=== PATIENT | female | born 1960 | race Caucasian/White ===

== ENCOUNTER 2018-09-17 00:53 | Outpatient (CLI) | payer BC, SELFPAY ==
--- NOTE | 2018-09-17 14:30 | DI.RAD_ITS ---
SYMPTOMS/DIAGNOSIS: OSTEOPENIA, SEIZURES ON ANTIEPILEPTIC THERAPY, R56.9, M85.80, Z79.899 DEXA SCAN: Routine examination. The lateral view of the spine shows no compression deformities. Evaluation of the left hip shows a total T score of -1.8 and a Z score of -0.9. Evaluation of the lumbar spine shows a total T score of -3.3 and a Z score of -1.9. The findings are consistent with osteoporosis in the lumbar spine, which imparts a high fracture risk. There is osteopenia in the left hip.
== END 2018-09-17 01:13 ==
PROVIDERS: PCP Family Medicine; Visit Provider Psychiatry & Neurology Neurology
DX: M85.88 Other specified disorders of bone density and structure, other site (principal); R56.9 Unspecified convulsions; Z79.899 Other long term (current) drug therapy
CPT/HCPCS: 77080

== ENCOUNTER 2019-02-28 10:12 | Emergency (ER) | payer BC, SELFPAY ==
[2019-02-28 10:16] VITALS: BP 140/87; PULSE 67; RESP 16; TEMP 36.5; O2SAT 97
--- NOTE | 2019-02-28 10:41 | ED.GENADUL_ITS ---
Discharge Plan Disposition Patient Disposition: HOME Condition: Good Discharge Details Chief Complaint: Orthopedic Clinical Impression: Plantar fasciitis Primary Care Provider: Aria Thompson ED Provider: Mandi Maria Home Meds and New Rx's Prescriptions: Continued oxcarbazepine [Trileptal] 150 MG tablet 900 mg PO HS RF: 0 Discharge Instructions Instructions: Plantar Fasciitis Exercises (GEN), Plantar Fasciitis (ED) Additional Instructions: Encourage hydration. Tylenol and/or Aleve for discomfort. Begin taking the Aleve once in the morning, once at night as discussed for the next 1 to 2 weeks. Please follow-up with primary care within the next 2 weeks for reevaluation. Please begin the exercises discussed, attached is information on these exercises. If you develop fever/chills, no skin changes, warmth or the new/worsening symptoms please seek care urgently once again. You need to wear more supportive shoe with arch support as discussed. Do not wear high heels. Referrals: Aria Thompson [Primary Care Provider] - Discharge Data Discharge Date/Time-TO BE ENTERED AT DEPARTURE: 02/28/19 11:42 Medical Decision Making Patient is a 4-year-old female presenting today with chief complaint of right foot pain. She reports this began approximately 3 to 4 weeks ago after walking for extended period of time a new [place] while in [place]. She denies any trauma. Indicates that the heel and into the arch is area of discomfort. Her exam is most consistent with plantar fasciitis. Do not see any evidence of infection. She does report feeling swelling along with the medial aspect of the heel, I am unable to appreciate this on exam. Patient has been elevating. Has taken 1 Aleve. She feels that her pain greatly increased today making it difficult for her to ambulate. Will obtain x-rays to evaluate for any possible bony abnormality including possible spur. Discussed this plan with the patient is in agreement X-rays obtained and reviewed by myself. You need a spur but no other acute bony abnormality. At this time, patient is requesting discharge. Patient I discussed that time of diagnosis of plantar fasciitis. She was wearing a unsupportive high heel shoe. I encouraged she needs to wear something with more arch support and without the elevation. We discussed exercises at home techniques to help with this diagnosis. Advise follow-up with her primary care next week for reevaluation. We discussed new/worsening symptoms that should prompt urgent evaluation once again. All the questions and concerns were addressed and she is in agreement Call patient back once the report was in from the radiologist and let her know that the read verified my initial interpretation of fracture dislocation but a small plantar calcaneal spur noted. HPI General Mode of arrival: ambulatory . Date/Time Provider Initiated Documentation: 02/28/19 10:22 . Limitations to Documentation: no limitations . Information obtained by: patient, family () and RN notes reviewed . History of Present Illness 58 year old F presents to the emergency department with the chief complaint of right foot pain, described as moderate, with intensity rated at 5. Quality is described as aching, and is localized to the right and lower extremity. Patient reports no radiation. Patient started experiencing this week(s) and it has been constant. Immobilization improves symptom(s), Movement worsens symptoms . Patient notes no other symptoms.. Patient did receive the following treatments prior to arrival, NSAID Related Data Home Medications Medication Instructions Recorded Confirmed oxcarbazepine [Trileptal] 900 mg PO HS 06/16/13 02/28/19 Allergies Allergy/AdvReac Type Severity Reaction Status Date / Time Sulfa (Sulfonamide AdvReac Intermediate Nausea Unverified 02/28/19 10:23 Antibiotics) General Stated Complaint: Orthopedic KRIS: 4 Review of Systems Constitutional Reports as per HPI, Denies chills, Denies fever(s), Denies headache(s) and Denies weakness ENT Denies headache(s) Cardiovascular Reports as per HPI Respiratory Reports as per HPI and Denies cough Musculoskeletal Reports as per HPI and Denies tingling Integumentary/Breasts Reports as per HPI, Denies rash and Denies wounds Neurologic Reports as per HPI, Denies headache(s), Denies tingling, Denies paresthesias and Denies weakness [facility] Social History Smoking/Tobacco Use Status: Former Tobacco Use Drug use: Never Do you feel safe in your relationship?: Yes Exam Const General: cooperative, healthy appearing, comfortable, no acute distress, well developed and well groomed Nutritional Appearance: average body habitus and well nourished Orientation: alert and awake Resp Effort & Inspection: normal respiratory effort, able to speak in complete sentences and no respiratory distress Cardio Rate: regular rate Rhythm: regular rhythm Skin General skin exam: no rashes or lesions noted Lesions: no lesions Rashes: no rashes Trauma: no lacerations or abrasions Neuro General: alert and awake Cognition: normal cognition Speech: speech normal Gait: normal gait Motor: muscle tone normal throughout Sensory Exam: no sensory deficits noted Extrem Left lower extremity: normal to inspection, full ROM, normal capillary refill, no joint enlargement, ankle Details: normal to inspection, no edema and normal ROM; no tenderness, no swelling, no warmth, no ecchymosis and achilles tendon exam normal and foot Details: normal capillary refill, normal to inspection, tenderness Location: of the plantar foot Location: proximally, of the calcaneus Details: point tenderness; none with a squeeze and of the medial foot Location: proximally; not of the dorsal foot, not of the great toe, not of any other digit, not of the lateral foot and not of the base of the 5th metatarsal, vascular exam Details: dorsalis pedis pulse present and posterior tibial pulse present, tendon exam Details: active flexion normal and active extension normal and motor-sensory exam Details: light-touch normal; no edema, no lacerations, no ecchymosis and no crepitus Psych Appearance: grossly normal and well kempt Mental Status: mental status grossly normal Speech and Movement: speech and movement normal Course Vital Signs Temperature 36.5 C 02/28/19 10:16 Pulse 67 02/28/19 10:16 Respiratory Rate 16 02/28/19 10:16 Blood Pressure 140/87 02/28/19 10:16 Pulse Oximetry 97 02/28/19 10:16 Temperature 36.5 C 02/28/19 10:16 Temperature Source Temporal Artery Scan 02/28/19 10:16 Pulse 67 02/28/19 10:16 Respiratory Rate 16 02/28/19 10:16 Respiratory Effort Non-Labored 02/28/19 10:22 Blood Pressure 140/87 02/28/19 10:16 Blood Pressure Position Sitting 02/28/19 10:16 Pulse Oximetry 97 02/28/19 10:16 Oxygen Delivery Method Room Air 02/28/19 10:16 Oxygen Flow Rate 0 02/28/19 10:16 Pain Level 5 02/28/19 10:16
--- NOTE | 2019-02-28 11:12 | DI.RAD_ITS ---
SYMPTOM/DIAGNOSIS: HEEL AND ARCH PAIN AFTER WALKING. RIGHT FOOT: No fracture or dislocation is seen. There is a small plantar calcaneal spur. IMPRESSION: No acute abnormality.
== END 2019-02-28 11:42 | disposition home or self-care (01) ==
PROVIDERS: Emergency Provider Physician Assistant; PCP Family Medicine
DX: M72.2 Plantar fascial fibromatosis (principal)
CPT/HCPCS: 99283; 73630

== ENCOUNTER 2019-06-11 07:38 | Emergency (ER) | payer BC, SELFPAY ==
[2019-06-11 07:40] VITALS: BP 131/91; PULSE 95; RESP 18; TEMP 36.6; O2SAT 100
--- NOTE | 2019-06-11 08:13 | DI.RAD_ITS ---
EXAM: XR CHEST 2V PA LATERAL INDICATION: cough, fever. COMPARISON: CHEST 2 VIEWS PA,LAT from 10/11/2017 TECHNIQUE: 2D digital imaging was performed. FINDINGS: The heart size is normal. There is no mediastinal widening. The lungs are reasonably well inflated and clear. No infiltrate or effusion is seen. IMPRESSION: Negative chest x-ray.
--- NOTE | 2019-06-11 08:14 | W.ED.GENAD ---
Discharge Plan Disposition Patient Disposition: HOME Condition: Stable Discharge Details Chief Complaint: SOB Clinical Impression: Infection, respiratory tract Primary Care Provider: Aria Thompson ED Provider: oMy Truong Home Meds and New Rx's Prescriptions: New doxycycline hyclate 100 mg tablet 100 mg PO BID Qty: 14 RF: 0 benzonatate 200 mg capsule 200 mg PO TID PRN (Reason: cough) Qty: 30 RF: 0 Continued oxcarbazepine [Trileptal] 150 MG tablet 900 mg PO HS RF: 0 Discharge Instructions Instructions: Pneumonia (ED) Additional Instructions: Please take your antibiotic as prescribed and for the full course of treatment. During illness please get plenty of appropriate nutrition and stay well-hydrated. Also allow for plenty of rest. Return to the emergency department for any new or significant worsening of symptoms otherwise follow-up with your primary care provider for reassessment if not improving by early next week. You may continue to use [id number] medications for any further symptoms just take as directed on packaging. Stand Alone Forms: Work Release Referrals: Aria Thompson [Primary Care Provider] - (If not improving by early next week follow-up with your primary care provider for reassessment) Discharge Data Discharge Date/Time-TO BE ENTERED AT DEPARTURE: 06/11/19 09:57 Medical Decision Making Patient presenting to the emergency department for chief complaint of cough and cold symptoms. She states that this started about 2 weeks ago and had 3 days of pretty severe symptoms then seemed to improve. Then approximately 5 days ago she developed a cough which is worsened and become more persistent. She does state of subjective fever yesterday, increase in body aches, and worsening cough. Physical exam shows clear lung sounds, some mild audible nasal congestion, and anterior cervical lymphadenopathy little more on the right with clear fluid behind the right TM otherwise unremarkable examination. I am concerned for pneumonia given double illness sign versus sinusitis. Also considered is influenza. Plan to do chest x-ray and flu swab. Pending results patient given Tessalon Perles for cough suppressant. corporate staff accountant initiated protocol given the patient does complain of some substernal chest discomfort for EKG. EKG reviewed with Dr. Flavio Hucthinson and shows sinus rhythm, rate of 85, no STEMI, normal axis, otherwise nondiagnostic EKG. Review of influenza swab shows negative results and chest x-ray appears normal but there is a questionable area of small opacity in the right lower lung on the medial aspect. Compared to previous chest x-ray this may be normal for patient but it is still considered. Patient was still prescribed doxycycline given double illness sign and worsening symptoms, prescribed Tessalon Perles for cough suppressant, and instructed on other [id number] medication use. Return precautions were also discussed along with follow-up. After discussion of diagnosis and plan of care patient has no further needs, questions, or concerns and states clear understanding to return to the emergency department for any worsening symptoms. HPI General Mode of arrival: ambulatory. Date/Time Provider Initiated Documentation: 06/11/19 07:59. Limitations to Documentation: no limitations. Information obtained by: patient and RN notes reviewed. History of Present Illness 58 year old F presents to the emergency department with the chief complaint of cough, fever, described as mild, with intensity rated at 4. Quality is described as aching (Generalized body aches), Patient started experiencing this week(s) (2) and it has been constant. No relieving factors improve symptom(s), No exacerbating factors reported . Patient did receive the following treatments prior to arrival, other (Hxsr-[id number] cold medications) Related Data Home Medications Medication Instructions Recorded Confirmed oxcarbazepine [Trileptal] 900 mg PO HS 06/16/13 06/11/19 benzonatate 200 mg PO TID PRN #30 cap 06/11/19 doxycycline hyclate 100 mg PO BID #14 tab 06/11/19 Previous Rx's Medication Instructions Recorded benzonatate 200 mg PO TID PRN #30 cap 06/11/19 doxycycline hyclate 100 mg PO BID #14 tab 06/11/19 Allergies Allergy/AdvReac Type Severity Reaction Status Date / Time Sulfa (Sulfonamide AdvReac Intermediate Nausea Unverified 02/28/19 10:23 Antibiotics) General Stated Complaint: SOB KRIS: 3 Review of Systems Constitutional Constitutional: Reports body ache(s), Reports fever(s) (Subjective), Denies headache(s), Reports malaise and Denies night sweats Eyes Eyes: Denies eye discharge ENT Ears, Nose, Mouth, and Throat: Reports as per HPI, Denies ear discharge, Denies otalgia, Denies headache(s), Reports nasal congestion, Reports nasal discharge, Reports sinus pressure and Reports sore throat Cardiovascular Cardiovascular: Reports chest pain and Denies dyspnea Respiratory Respiratory: Reports cough and Denies dyspnea Integumentary/Breasts Skin/Breast: Denies rash Neurologic Neurologic: Denies headache(s) [facility] Social History Smoking/Tobacco Use Status: Former Tobacco Use Drug use: Never Do you feel safe at home: Yes Do you feel safe in your relationship?: Yes Exam Const General: cooperative, comfortable and no acute distress Orientation: alert and awake [facility] Head: normal to inspection, normocephalic and atraumatic Ears: hearing grossly normal bilaterally, TM normal on the left and TM abnormal with fluid behind the TM (clear) on the right General nose exam: external nose normal and nares normal Mouth: oral mucosae normal, no drooling, no muffled voice and no trismus Throat: posterior oropharynx normal, tonsils normal and uvula midline Neck Neck: normal visual inspection, full ROM, no meningeal signs, trachea midline, supple and lymphadenopathy right anterior cervical tender Resp Effort & Inspection: normal respiratory effort, able to speak in complete sentences and cough Quality of cough: dry Auscultation: clear to auscultation bilaterally Cardio Rate: regular rate Rhythm: regular rhythm Heart Sounds: S1 normal, S2 normal, normal S1 and S2, no click, no gallops, no murmurs and no rubs Course Vital Signs Vital signs: Vital Signs Temperature 36.6 C 06/11/19 07:40 Pulse 95 H 06/11/19 07:40 Respiratory Rate 18 06/11/19 07:40 Blood Pressure 131/91 H 06/11/19 07:40 Pulse Oximetry 100 06/11/19 07:40 Temperature 36.6 C 06/11/19 07:40 Temperature Source Skin 06/11/19 07:40 Pulse 95 H 06/11/19 07:40 Respiratory Rate 18 06/11/19 07:40 Respiratory Effort 06/11/19 07:45 Respiratory Depth Normal 06/11/19 07:45 Respiratory Pattern Normal 06/11/19 07:45 Blood Pressure 131/91 H 06/11/19 07:40 Blood Pressure Position Supine 06/11/19 07:40 Pulse Oximetry 100 06/11/19 07:40 Oxygen Delivery Method Room Air 06/11/19 07:40 Oxygen Flow Rate 0 06/11/19 07:40 Pain Level 5 06/11/19 07:40
[2019-06-11] MEDS: Benzonatate 100 MG CAP 200 MG PO (08:33)
[2019-06-11 09:44] VITALS: BP 129/86; PULSE 90; RESP 18; O2SAT 100
== END 2019-06-11 09:57 | disposition home or self-care (01) ==
PROVIDERS: Emergency Provider Nurse Practitioner Family; PCP Family Medicine
DX: J06.9 Acute upper respiratory infection, unspecified (principal)
CPT/HCPCS: 87449; 93005; 99284; 71046; 93010

== ENCOUNTER 2020-04-30 09:06 | Emergency (ER) | payer BC, SELFPAY ==
[2020-04-30] VITALS (19 sets, daily range): BP systolic 141–165; BP diastolic 72–88; PULSE 57–82; RESP 13–19; TEMP 36.5; O2SAT 96–99
--- NOTE | 2020-04-30 09:15 | RT.EKG_ITS ---
APPROVED REPORT Exam: Resting ECG Patient Location: E HR:63 bpm ECG Measurements Heart Rate 63 AXIS OK 175 P 64 QRSd 107 QRS -15 QT 407 T 34 QTc 417 Conclusion Sinus rhythm...normal P axis, V-rate 60- 99 Probable left atrial enlargement...P >50mS, <-0.10mV V1 Otherwise normal
--- NOTE | 2020-04-30 09:42 | ED.GENADUL_ITS ---
Discharge Plan Disposition Patient Disposition: HOME Condition: Stable Discharge Details Chief Complaint: SOB Clinical Impression: Cough Primary Care Provider: Aria Thompson ED Provider: Bernardino Noe Home Meds and New Rx's Prescriptions: Continued oxcarbazepine [Trileptal] 150 MG tablet 900 mg PO HS RF: 0 Discharge Instructions Instructions: Acute Cough (ED) Additional Instructions: Work-up in the ER is unremarkable for any obvious emergent process. Chest x-ray shows no signs of pneumonia. As we discussed, rest, plenty of fluids to avoid dehydration, xhfq-del-bdezgjx medications for symptomatic control. We discussed cough medication called Delsym, which can be easier with compliance as it is long-acting compared to many other cough medications. COVID is pending, we discussed quarantining in the meantime. Please watch for new or worsening symptoms and return to the ER for any concerns. Otherwise I recommend reaching out your primary care provider later today or tomorrow for prompt outpatient reevaluation Stand Alone Forms: POSITIVE COVID-19/TO BE TESTED Medical Decision Making 59-year-old female presents with mild sore throat, right ear pressure that has developed into a cough with mild clear sputum production. Symptoms have been going on for nearly 5-6 days. Denies recent travel or sick contacts. Denies chest pain, pain or swelling in her legs. Clinically this appears to be infectious in nature, she is specifically concerned regarding pneumonia. Given her presentation I do believe there is low suspicion for ACS, PE, etc. Will obtain CBC, CMP, chest x-ray, COVID testing and an EKG. Lungs are clear to auscultation. Pulse in the 70s, O2 sat in the mid to high 90s on room air. No indication for breathing treatment. Laboratory values reveal a white count of 3.69, hemoglobin 12.9 hematocrit 36.7 platelet count 301. Sodium 129. Glucose 114. When reviewing previous records, she appears to always have a chronic hyponatremia, likely secondary to her Trileptal. Chest x-ray negative. COVID pending. Discussed laboratory values, x-ray with patient. No clear indication for antibiotic therapy. She understands that COVID is pending and we discussed quarantining in the meantime. We also discussed treating symptoms with lkvq-shy-ibwrvum medications, staying well-hydrated, the importance of returning for new or evolving symptoms and the importance of outpatient follow-up through her primary care provider. Patient comfortable this plan and has no additional questions or concerns Medical Records Medical records reviewed: Yes I reviewed the patient's medical records. Imaging Data Radiologic Study: Attestation: I personally reviewed and interpreted this imaging study as follows: Radiologist's impression: Chest x-ray negative Lab Data Lab results reviewed: Yes I reviewed the patient's lab results. Lab results narrative: Laboratory Tests Range/Units 04/30/20 04/30/20 09:44 09:44 WBC (4.4-10.8) 10^3/uL 3.69 L RBC (3.93-5.22) 10^6/uL 4.08 Hgb (11.2-15.7) g/dL 12.9 Hct (36.0-46.0) % 36.7 MCV (80-95) fL 90.0 MCH (27.0-33.0) pg 31.6 MCHC (32.0-36.0) % 35.1 RDW (11.7-14.6) % 13.0 Plt Count (130-400) 10^3/uL 301 MPV (8.0-11.0) fL 8.8 Sodium (136-145) mmol/L 129 L Potassium (3.5-5.1) mmol/L 3.6 Chloride (98-107) mmol/L 93 L Carbon Dioxide (21.0-32.0) mmol/L 27.1 Anion Gap (3-11) mmol/L 8.9 BUN (7-18) mg/dL 13 Creatinine (0.55-1.02) mg/dL 0.75 Estimated GFR/1.73 m2 (mL/min/1.73m2) >= 60.00 Glucose (74-106) mg/dL 114 H Calcium (8.5-10.1) mg/dL 9.0 Total Bilirubin (0.2-1.0) mg/dL 0.3 AST (15-37) U/L 19 ALT (14-59) U/L 33 Alkaline Phosphatase (46-116) U/L 92 Total Protein (6.4-8.2) g/dL 6.8 Albumin (3.4-5.0) g/dL 3.9 ECG Data Attestation: I personally reviewed and interpreted this ECG (s) as follows: Interpretation: Reviewed with Dr. Rios, please see her official report. Sinus rhythm, ventricular rate of 63. No STEMI. HPI General Mode of arrival: ambulatory . Date/Time Provider Initiated Documentation: 04/30/20 09:07 . Limitations to Documentation: no limitations . Information obtained by: patient . HPI Narrative: This is a 59-year-old female who reports history of well-controlled seizure disorder, presenting to the ER today concerned that she has pneumonia. She reports a 5-day history of fatigue, cough with mild clear sputum, occasional shortness of breath with what she describes as pain in my right lung. She denies sick contacts or recent travel. She denies fever. Reports that symptoms began with a mildly sore throat, right ear pressure, and have progressed to this and now seems to be getting worse. She denies headache, neck pain, chest pain, abdominal pain, nausea, vomiting, pain or swelling in her legs. She denies any diarrhea or painful urination. She is not a smoker. Related Data Home Medications Medication Instructions Recorded Confirmed oxcarbazepine [Trileptal] 900 mg PO HS 06/16/13 04/30/20 Allergies Allergy/AdvReac Type Severity Reaction Status Date / Time Sulfa (Sulfonamide AdvReac Intermediate Nausea Unverified 04/30/20 09:13 Antibiotics) General Stated Complaint: SOB KRIS: 3 Review of Systems Constitutional Constitutional: Reports fatigue, Denies fever(s), Denies headache(s) and Denies weakness Eyes Eyes: Denies eye discharge ENT Ears, Nose, Mouth, and Throat: Reports otalgia, Denies headache(s), Denies neck pain and Reports sore throat Cardiovascular Cardiovascular: Denies chest pain and Reports dyspnea Respiratory Respiratory: Reports cough, Reports dyspnea and Denies wheezing Gastrointestinal Gastrointestinal: Denies abdominal pain, Denies nausea and Denies vomiting Genitourinary Genitourinary: Denies dysuria Musculoskeletal Musculoskeletal: Denies back pain, Denies neck pain, Denies numbness and Denies tingling Integumentary/Breasts Skin/Breast: Denies rash Neurologic Neurologic: Denies headache(s), Denies numbness, Denies tingling and Denies weakness Endocrine Endocrine: Reports fatigue Allergic/Immunologic Allergic/Immunologic: Denies wheezing [facility] Social History Smoking/Tobacco Use Status: Former Tobacco Use Alcohol Intake: current Alcohol Intake frequency: holidays/special occasions only Alcohol type: wine Drug use: Never Substance use type: does not use Do you feel safe at home: Yes Do you feel safe in your relationship?: Yes Exam Const General: cooperative, healthy appearing, comfortable and no acute distress Orientation: alert, awake and oriented x3 HENMT Head: normal to inspection, normocephalic and atraumatic Ears: external ears normal, TM's normal bilaterally and EAC's normal General nose exam: external nose normal Face and sinus: normal facial exam Mouth: moist mucous membranes Throat: posterior oropharynx normal Eyes Conjunctivae: conjunctivae normal Sclera: sclerae normal Neck Neck: normal visual inspection, full ROM, no lymphadenopathy, no meningeal signs, trachea midline, supple and nontender Resp Effort & Inspection: normal respiratory effort, able to speak in complete sentences and cough Quality of cough: dry (mild) Auscultation: clear to auscultation bilaterally Cardio Rate: regular rate Rhythm: regular rhythm GI Palpation: soft and nontender Back/Spine/Pelvis Back: No back tenderness Skin General skin exam: no rashes or lesions noted Neuro General: patient alert, patient awake, patient oriented x3, moves all extremities and no focal motor deficits Speech: speech normal Gait: normal gait Motor: muscle tone normal throughout Sensory Exam: no sensory deficits noted Extrem General: normal to inspection, full ROM, no pedal edema and no calf tenderness Psych Appearance: grossly normal Mental Status: mental status grossly normal Course Vital Signs Vital signs: Vital Signs Temperature 36.5 C 04/30/20 09:09 Pulse 76 04/30/20 09:09 Respiratory Rate 16 04/30/20 09:09 Blood Pressure 165/84 H 04/30/20 09:09 Pulse Oximetry 96 04/30/20 09:09 Temperature 36.5 C 04/30/20 09:09 Temperature Source Tympanic 04/30/20 09:09 Pulse 76 04/30/20 09:09 Respiratory Rate 16 04/30/20 09:30 Respiratory Effort 04/30/20 09:30 Respiratory Depth Shallow 04/30/20 09:30 Respiratory Pattern Normal 04/30/20 09:30 Blood Pressure 165/84 H 04/30/20 09:09 Blood Pressure Position Sitting 04/30/20 09:09 Pulse Oximetry 96 04/30/20 09:09 Oxygen Delivery Method Room Air 04/30/20 09:09 Oxygen Flow Rate 0 04/30/20 09:09 Pain Level 4 04/30/20 09:09
[2020-04-30 09:54] LABS: HCT 36.7 % (36.0-46.0); HGB 12.9 g/dL (11.2-15.7); MCH 31.6 pg (27.0-33.0); MCHC 35.1 % (32.0-36.0); MPV 8.8 fL (8.0-11.0); Platelet Count 301 10^3/uL (130-400); RBC 4.08 10^6/uL (3.93-5.22); RDW-SD 42.7 fL; WBC 3.69 10^3/uL (4.4-10.8)
--- NOTE | 2020-04-30 10:10 | DI.RAD_ITS ---
EXAM: XR PORTABLE CHEST AP CLINICAL HISTORY: cough/sob TECHNIQUE: 2D digital imaging was performed. COMPARISON: CR XR CHEST 2V PA LATERAL from 06/11/2019 FINDINGS: MEDIASTINUM: Normal. HEART: Normal. PULMONARY VASCULATURE: Normal. LUNGS: Clear. PLEURAL SPACE: No pleural effusion or pneumothorax. BONE:Within normal limits for the patient's age. OTHER FINDINGS:Normal. IMPRESSION: No acute pulmonary findings. DATA REPOSITORY: RADIATION DOSE DELIVERED:
[2020-04-30 10:46] LABS: ALT 33 U/L (14-59); AST 19 U/L (15-37); Albumin 3.9 g/dL (3.4-5.0); Alkaline Phosphatase 92 U/L (46-116); Anion Gap 8.9 mmol/L (3-11); BUN 13 mg/dL (7-18); Bilirubin, Total 0.3 mg/dL (0.2-1.0); CO2 27.1 mmol/L (21.0-32.0); CREATININE 0.75 mg/dL (0.55-1.02); Chloride 93 mmol/L (98-107); Glucose 114 mg/dL (74-106); Potassium 3.6 mmol/L (3.5-5.1); Sodium 129 mmol/L (136-145); Total Protein 6.8 g/dL (6.4-8.2)
[2020-05-02 22:31] LABS: Patient Race White; SARS-CoV-2 RNA Undetected (Undetected); SARS-CoV-2 Specimen Source Nasopharynx
== END 2020-04-30 11:37 | disposition home or self-care (01) ==
PROVIDERS: Emergency Provider Physician Assistant
DX: R05 Cough (principal); J02.9 Acute pharyngitis, unspecified; Z03.818 Encounter for observation for suspected exposure to other biological agents ruled out; Z87.891 Personal history of nicotine dependence
CPT/HCPCS: 36415; 80053; 85027; 93005; 99285; U0003; 71045; 93010; 99284

== ENCOUNTER 2020-09-19 10:51 | Emergency (ER) | payer BC, SELFPAY ==
[2020-09-19 10:55] VITALS: BP 142/94; PULSE 80; RESP 16; TEMP 36.7; O2SAT 98
--- NOTE | 2020-09-19 11:00 | DI.CT_ITS ---
EXAM: CT HEAD WO CLINICAL HISTORY: R headache after fall. TECHNIQUE: Imaging Protocol: Axial computed tomography images with coronal and sagittal reformatted images were created and reviewed COMPARISON: CT HEAD WITHOUT STROKE PROTOCOL from 02/29/2016 FINDINGS: There are no skull fractures nor fluid in the visualized paranasal sinuses. Post inflammatory reten tion cyst is noted in the inferior aspect of the right maxillary sinus. Also mild mucosal thickening but no associated fluid level. There is no evidence of intracranial hemorrhage, mass effect, or shift of midline structures. There are no extra-axial fluid collections. The ventricles are not enlarged or shifted and there is no blo od within the ventricular system nor within the basal cisterns. IMPRESSION: No acute intracranial findings on this noninfused CT scan of the brain. RADIATION DOSE DELIVERED: 656.38mGy.cm Total DLP DATA REPOSITORY: All CT scans at this facility are submitted to the National Radiology Data Registry (NRDR) Dose Index Registry (DIR) with the [employer] (ACR). RADIATION OPTIMIZATION: All CT scans at this facility use at least one of these dose optimization te chniques: automated exposure control; mA and/or kV adjustment per patient size (includes targeted exa ms where dose is matched to clinical indication); or iterative reconstruction.
--- NOTE | 2020-09-19 11:11 | W.ED.GENAD ---
Discharge Plan Disposition Patient Disposition: HOME Condition: Improving Discharge Details Clinical Impression: Right temporal frontal scalp contusions Primary Care Provider: None,None ED Provider: Flavio Hutchinson Home Meds and New Rx's Prescriptions: Continued oxcarbazepine [Trileptal] 150 MG tablet 900 mg PO HS RF: 0 Discharge Instructions Instructions: Contusion in Adults (ED) Additional Instructions: Your CAT scan of the head did not show any acute bony injury, nor acute intracranial findings. May resume normal routine and activities. May apply ice or cold compress to area to reduce discomfort. Tylenol if needed for pain. Return to the ER for any acute concerns. Medical Decision Making 59-year-old female states that she fell in her bathroom striking her right head on a potted plant on Sunday night. She did not have a loss of consciousness. She had no palpitations or chest pain. She now has dull, achy, persistent right-sided head discomfort. She arrives well-appearing, pleasant, no acute distress. Cranial nerves II through XII are intact, Romberg is negative. She is tender overlying the right temporal bone. Must exclude underlying bony fracture or intracranial bleed and patient referred for CT scan of the head. Imaging is unremarkable. Consistent with contusion. Discussed with patient. She is stable for discharge to home. HPI General Mode of arrival: ambulatory. Date/Time Provider Initiated Documentation: 09/19/20 10:52. Limitations to Documentation: no limitations. Information obtained by: patient. History of Present Illness 59 year old F presents to the emergency department with the chief complaint of Right headache after fall Sunday night, described as moderate, Quality is described as dull, and is localized to the head and right. Patient reports no radiation. Patient started experiencing this hour(s) and it has been constant. No relieving factors improve symptom(s), No exacerbating factors reported . Patient notes headaches; denies loss of appetite and nausea/vomiting. Patient did receive the following treatments prior to arrival, none Related Data Home Medications Medication Instructions Recorded Confirmed oxcarbazepine [Trileptal] 900 mg PO HS 06/16/13 09/19/20 Allergies Allergy/AdvReac Type Severity Reaction Status Date / Time Sulfa (Sulfonamide AdvReac Intermediate Nausea Unverified 09/19/20 11:01 Antibiotics) General Stated Complaint: HeadInjury KRIS: 3 Review of Systems Narrative: No loss of consciousness. No vomiting. Denies change to vision, no neck or back pain. Recently well. No change to medications. 7 systems reviewed and otherwise negative [facility] Social History Smoking/Tobacco Use Status: Former Tobacco Use Smoking risk assessment performed?: Yes Alcohol Intake: current Alcohol Intake frequency: a few times a week Alcohol type: wine Drug use: Never Substance use type: does not use Do you feel safe at home: Yes Do you feel safe in your relationship?: Yes Exam Narrative Exam Narrative: GEN: awake, alert, oriented 3. Pleasant, well groomed, interactive. HEAD: Normocephalic, atraumatic, tender right superotemporal, no significant swelling or ecchymosis appreciated. ENT: Mucous membranes moist, oropharynx unremarkable, External ear exam unremarkable EYES: PERRL, EOMI NECK: Full ROM, no ANTHONY, no menigismus, nontender CHEST/RESP: Nontender, clear to auscultation bilateral, no wheeze/rhonchi/rales CARDIOVASCULAR: RRR, no murmur, rub akil. 2+ Rad pulse bilateral EXT: Full ROM, no edema, no rash Neuro: Grossly normal neurologic exam, conversant, interactive. Cranial nerves II through XII intact. Negative Romberg. Psych: Speech fluent, thoughts congruent, affect normal Course Vital Signs Vital signs: Vital Signs Temperature 36.7 C 09/19/20 10:55 Pulse 80 09/19/20 10:55 Respiratory Rate 16 09/19/20 10:55 Blood Pressure 142/94 H 09/19/20 10:55 Pulse Oximetry 98 09/19/20 10:55 Temperature 36.7 C 09/19/20 10:55 Temperature Source Skin 09/19/20 10:55 Pulse 80 09/19/20 10:55 Respiratory Rate 16 09/19/20 10:55 Respiratory Effort Non-Labored 09/19/20 10:55 Blood Pressure 142/94 H 09/19/20 10:55 Blood Pressure Position Sitting 09/19/20 10:55 Pulse Oximetry 98 09/19/20 10:55 Oxygen Delivery Method Room Air 09/19/20 10:55 Oxygen Flow Rate 0 09/19/20 10:55 Pain Level 2 09/19/20 10:55
--- NOTE | 2020-09-19 11:30 | DI.VRAD_ITS ---
PROCEDURE INFORMATION: Exam: CT Head Without Contrast Exam date and time: 09/19/2020 11:21 AM Age: 59 years old Clinical indication: Injury or trauma; Fall; Blunt trauma (contusions or hematomas); Consciousness not specified; Injury date: 09/17/20 TECHNIQUE: Imaging protocol: Computed tomography of the head without contrast. COMPARISON: CT HEAD WITHOUT STROKE PROTOCOL 02/29/2016 3:56 PM FINDINGS: Brain: No acute intracranial hemorrhage.. There is moderate diffuse heterogeneity of the white matter attenuation, consistent with chronic white matter ischemic changes. Moderate cerebral atrophy Cerebral ventricles: No ventriculomegaly. Bones/joints: Unremarkable. No acute fracture. Paranasal sinuses: Polyp or retention cyst in the right maxillary sinus Mastoid air cells: Visualized mastoid air cells are well aerated. Soft tissues: Unremarkable. IMPRESSION: No acute intracranial hemorrhage.. Dictated and Authenticated by: David Domínguez MD. Ordering:RADHA Muniz MD
[2020-09-19 11:45] VITALS: BP 142/94; PULSE 80; RESP 16; TEMP 36.7; O2SAT 98
== END 2020-09-19 11:47 | disposition home or self-care (01) ==
PROVIDERS: Emergency Provider Emergency Medicine
DX: S00.03XA Contusion of scalp, initial encounter (principal); W19.XXXA Unspecified fall, initial encounter
CPT/HCPCS: 99284; 70450

== ENCOUNTER 2020-12-01 20:43 | Emergency (ER) | payer BC, SELFPAY ==
[2020-12-01] VITALS (11 sets, daily range): BP systolic 138–149; BP diastolic 59–78; PULSE 67–73; RESP 12–19; TEMP 36.6; O2SAT 93–97
--- NOTE | 2020-12-01 21:00 | RT.EKG_ITS ---
APPROVED REPORT Exam: Resting ECG Patient Location: E HR:69 bpm ECG Measurements Heart Rate 69 AXIS [place] 186 P 57 QRSd 110 QRS 32 QT 412 T 31 QTc 441 Conclusion Sinus rhythm...normal P axis, V-rate 60- 99
--- NOTE | 2020-12-01 21:30 | DI.RAD_ITS ---
EXAM: XR CHEST 2V PA LATERAL CLINICAL HISTORY: dizzy, paresthesias TECHNIQUE: 2D digital imaging was performed. COMPARISON: CR XR PORTABLE CHEST AP from 04/30/2020 FINDINGS: MEDIASTINUM: Normal. HEART: Normal. PULMONARY VASCULATURE: Normal. LUNGS: Clear. PLEURAL SPACE: No pleural effusion or pneumothorax. BONE:Normal. OTHER FINDINGS:Normal. IMPRESSION: No acute pulmonary findings. DATA REPOSITORY: RADIATION DOSE DELIVERED:
--- NOTE | 2020-12-01 21:49 | DI.CT_ITS ---
EXAM: CT HEAD WO CLINICAL HISTORY: dizzy, ALCOCER. TECHNIQUE: Imaging Protocol: Axial computed tomography images with coronal and sagittal reformatted images were created and reviewed COMPARISON: CT CT HEAD WO from 09/19/2020 FINDINGS: Ventricles and Extra axial spaces: Normal in size and morphology for the patient's age. Mild atrophy . Stable mild ventricular dilatation. Hemorrhage: None. Cerebral parenchyma: Normal. No visible infarct or significant white matter changes. Midline shift: None. Brainstem/Cerebellum: Normal. Calvarium: Normal. Visualized Paranasal sinuses/Mastoids: Ethmoid sinus mucosal thickening. . Soft Tissues: Unremarkable. IMPRESSION: No acute intracranial process. RADIATION DOSE DELIVERED: 654.23mGy.cm Total DLP DATA REPOSITORY: All CT scans at this facility are submitted to the National Radiology Data Registry (NRDR) Dose Index Registry (DIR) with the [employer] (ACR). RADIATION OPTIMIZATION: All CT scans at this facility use at least one of these dose optimization te chniques: automated exposure control; mA and/or kV adjustment per patient size (includes targeted exa ms where dose is matched to clinical indication); or iterative reconstruction.
[2020-12-01] MEDS: Normal Saline 1,000 ML 125 ML IV (21:50)
[2020-12-01 21:54] LABS: Abs Immature Grans 0.03 10^3/uL (0.0-0.06); Absolute Basophil Count 0.06 10^3/uL (0.0-0.2); Absolute Eosinophil Count 0.24 10^3/uL (0.0-0.7); Absolute Lymphocyte Count 1.99 10^3/uL (1.2-3.4); Absolute Monocyte Count 0.56 10^3/uL (0.1-0.8); Absolute Neutrophil Count 4.13 10^3/uL (1.2-6.7); Basophils % 0.9; Eosinophils % 3.4; HCT 35.3 % (36.0-46.0); HGB 12.4 g/dL (11.2-15.7); Immature Grans % 0.4; Lymphocytes % 28.4; MCH 31.6 pg (27.0-33.0); MCHC 35.1 % (32.0-36.0); MCV 89.8 fL (80-95); MPV 8.9 fL (8.0-11.0); Neutrophils % 58.9; Nucleated RBC 0 %; Platelet Count 362 10^3/uL (130-400); RBC 3.93 10^6/uL (3.93-5.22); RDW 12.6 % (11.7-14.6); RDW-SD 41.9 fL; WBC 7.01 10^3/uL (4.4-10.8)
--- NOTE | 2020-12-01 22:03 | DI.VRAD_ITS ---
PROCEDURE INFORMATION: Exam: CT Head Without Contrast Exam date and time: 12/01/2020 21:32 Age: 60 years old Clinical indication: Pain; Headache not specified; Patient HX: HX seizure disorder, ALCOCER x few hours TECHNIQUE: Imaging protocol: Computed tomography of the head without contrast. Radiation optimization: All CT scans at this facility use at least one of these dose optimization techniques: automated exposure control; mA and/or kV adjustment per patient size (includes targeted exams where dose is matched to clinical indication); or iterative reconstruction. Other technique: STROKE PROTOCOL was implemented. COMPARISON: CT HEAD WO 09/19/2020 11:20 FINDINGS: Brain: Mild cerebral atrophy. No significant white matter disease for the patient's age. No edema or hemorrhage. Cerebral ventricles: No ventriculomegaly. Bones/joints: No acute fracture. Paranasal sinuses: Minor mucosal thickening partially seen in the ethmoid air cells. Mastoid air cells: No mastoid effusion. Soft tissues: No suspicious lesions. IMPRESSION: No acute intracranial findings. ASSESSMENT: ASPECTS ([place] Stroke Program Early CT Score) is 10 Dictated and Authenticated by: Jamee Jimenez MD. Ordering:EMY Lebron MD
[2020-12-01 22:10] LABS: PTT Activated 24.2 sec (21.0-27.5); Prothrombin Time 10.4 sec (9.3-11.0)
--- NOTE | 2020-12-01 22:16 | DI.VRAD_ITS ---
PROCEDURE INFORMATION: Exam: XR Chest Exam date and time: 12/01/2020 21:32 Age: 60 years old Clinical indication: Other: Dizzy, parasthesias; Patient HX: HX seizure disorder TECHNIQUE: Imaging protocol: XR of the chest. Views: 2 views. COMPARISON: CR XR PORTABLE CHEST AP 04/30/2020 09:59 FINDINGS: Lungs: No consolidation. Pleural spaces: No pleural effusion. No pneumothorax. Heart/Mediastinum: No cardiomegaly. Bones/joints: No acute fracture. IMPRESSION: No acute cardiopulmonary pathology. Dictated and Authenticated by: Jamee Jimenez MD. Ordering:EMY Lebron MD
[2020-12-01 22:53] LABS: ALT 28 U/L (14-59); AST 14 U/L (15-37); Albumin 3.9 g/dL (3.4-5.0); Alkaline Phosphatase 96 U/L (46-116); Anion Gap 7.9 mmol/L (3-11); BUN 21 mg/dL (7-18); Bilirubin, Total 0.2 mg/dL (0.2-1.0); CO2 26.1 mmol/L (21.0-32.0); CREATININE 0.6 mg/dL (0.55-1.02); Calcium 8.8 mg/dL (8.5-10.1); Chloride 93 mmol/L (98-107); Glucose 121 mg/dL (74-106); Magnesium 1.9 mg/dL (1.8-2.4); Potassium 3.7 mmol/L (3.5-5.1); Sodium 127 mmol/L (136-145); Total Protein 6.9 g/dL (6.4-8.2)
[2020-12-01 22:54] LABS: Troponin I < 0.05 ng/mL (<0.06)
--- NOTE | 2020-12-01 23:22 | ED.GENADUL_ITS ---
Discharge Plan Disposition Patient Disposition: HOME Condition: Stable Discharge Details Clinical Impression: Hyponatremia, Paresthesias, Fatigue Primary Care Provider: Aria Thompson ED Provider: Bartolo Leahy Home Meds and New Rx's Prescriptions: Continued oxcarbazepine [Trileptal] 150 MG tablet 900 mg PO HS RF: 0 mesalamine [Lialda] 1.2 gram tablet,delayed release (DR/EC) See Rx Instructions .ROUTE .COMPLEX RF: 0 Discharge Instructions Instructions: Hyponatremia (ED) Additional Instructions: your blood work did not show any concerning findings other than your sodium is low which appears to be chronic for you and is likely from the trileptal follow up with your primary care provider within a week if you feel more ill, have severe worsening pain or weakness return to the emergency department Medical Decision Making <KATE Pollard - Last Filed: 12/01/20 23:43> 60-year-old female presents with multiple vague symptoms such as fatigue, feeling more tired than usual, a mild frontal headache, tingling around her mouth, and a sensation of being off balance and the room spinning. This began around 8 PM after she realized she may have taken an extra dose of her Trileptal. She typically takes 900 at bedtime, even if she did take an a ccidental second dose this would not be toxic. Common reaction to Trileptal is dizziness and headache, as well as somnolent. Balance disorder also is a common reaction. These certainly describe her overall presentation. I do believe given her age, and presentation, obtaining a cardiac work-up and a head CT is reasonable although I do have low suspicion for diagnosis such as ACS, intracranial hemorrhage, etc. Upon reevaluation patient reports that the paresthesias have almost completely resolved and her headache is now only a 1 out of 10. Laboratory values reveal a white blood cell count of 7.01 hemoglobin 12.4 hematocrit 35.3 platelet count 362. INR 1.0, sodium 127 potassium 3.7 chloride 93, creatinine 0.6 with a GFR greater than 60. Glucose 121 calcium 8.8 magnesium 1.9 troponin less than 0.05. Patient with what appears to be chronic hyponatremia, she is receiving IV fluid. Trileptal can cause hyponatremia. Upon reevaluation patient denies any dizziness, feeling off balance. She states that the paresthesias are essentially gone. Headache 1 out of 10. Patient would like to be discharged. She is agreeable to awaiting a repeat troponin at the 3-hour chas. Medical Records Medical records reviewed: Yes I reviewed the patient's medical records. Imaging Data Radiologic Study: Attestation: I personally reviewed and interpreted this imaging study as follows: Imaging: CT Scan Radiologist's impression: CT imaging of head read by radiology as no acute intracranial findings Radiologic Study #2: Attestation: I personally reviewed and interpreted this imaging study as follows: Imaging: X-Ray Radiologist's impression: Chest x-ray negative Lab Data Lab results reviewed: Yes I reviewed the patient's lab results. Lab results narrative: Laboratory Tests Range/Units 12/01/20 12/01/20 12/01/20 21:30 21:30 21:30 WBC (4.4-10.8) 10^3/uL 7.01 RBC (3.93-5.22) 10^6/uL 3.93 Hgb (11.2-15.7) g/dL 12.4 Hct (36.0-46.0) % 35.3 L MCV (80-95) fL 89.8 MCH (27.0-33.0) pg 31.6 MCHC (32.0-36.0) % 35.1 RDW (11.7-14.6) % 12.6 Plt Count (130-400) 10^3/uL 362 MPV (8.0-11.0) fL 8.9 Immature Gran % 0.4 Neutrophils % 58.9 Lymphocytes % 28.4 Monocytes % 8.0 Eosinophils % 3.4 Basophils % 0.9 Nucleated RBC % % 0 Absolute Neutrophils (1.2-6.7) 10^3/uL 4.13 Absolute Lymphocytes (1.2-3.4) 10^3/uL 1.99 Absolute Monocytes (0.1-0.8) 10^3/uL 0.56 Absolute Eosinophils (0.0-0.7) 10^3/uL 0.24 Absolute Basophils (0.0-0.2) 10^3/uL 0.06 PT (9.3-11.0) sec 10.4 INR (0.9-1.1) 1.0 APTT (21.0-27.5) sec 24.2 Sodium (136-145) mmol/L 127 L Potassium (3.5-5.1) mmol/L 3.7 Chloride (98-107) mmol/L 93 L Carbon Dioxide (21.0-32.0) mmol/L 26.1 Anion Gap (3-11) mmol/L 7.9 BUN (7-18) mg/dL 21 H Creatinine (0.55-1.02) mg/dL 0.6 Estimated GFR/1.73 m2 (mL/min/1.73m2) >= 60.00 Glucose (74-106) mg/dL 121 H Calcium (8.5-10.1) mg/dL 8.8 Magnesium (1.8-2.4) mg/dL 1.9 Total Bilirubin (0.2-1.0) mg/dL 0.2 AST (15-37) U/L 14 L ALT (14-59) U/L 28 Alkaline Phosphatase (46-116) U/L 96 Troponin I (<0.06) ng/mL < 0.05 Total Protein (6.4-8.2) g/dL 6.9 Albumin (3.4-5.0) g/dL 3.9 ECG Data Attestation: I personally reviewed and interpreted this ECG (s) as follows: Interpretation: Please see official report by Dr. Hutchinson. Sinus rhythm, ventricular to 69. No STEMI. <Bartolo Leahy MD - Last Filed: 12/02/20 01:08> pt's repeat troponin and ecg unchanged. She is ambulating on her own with steady gait and feels much better. Sodium is low but it is chronically likely from trileptal. She is requesting d/c and I feel this is reasonable given no acute significant changes and normal neuro exam. Advised to f/u with pcp and return precautions given ECG Data Attestation: I personally reviewed and interpreted this ECG (s) as follows: Prior ECG tracings: available for review Interpretation: 3nd ekg shows sinus rhythm, rate of 63, pr [address] t wave ischemic changes compared to first ekg HPI <KATE Pollard - Last Filed: 12/01/20 23:43> General Mode of arrival: ambulatory . Date/Time Provider Initiated Documentation: 12/01/20 20:47 . Limitations to Documentation: no limitations . Information obtained by: patient . HPI Narrative: This is a 60-year-old female, past medical history of seizure disorder, who takes Trileptal daily. Patient states that yesterday she simply did not feel well overall, felt more tired than usual. She states this morning she felt a little more well rested but was overall tired. Today around 7-8 PM she took her dose of Trileptal 900 mg just like she always does and then soon after questioned if she accidentally took a second dose. She states soon after that she began thinking about it more, notic ed some tingling across her face, specifically around her mouth, and had a mild frontal headache. Patient states that she has had similar headaches, frontal, diffuse, 2 or 3 out of 10, ever since 2017 after she fell and struck her head. She states that when this occurred she felt a little dizzy, like she felt off balance but was still able to walk steadily. She states this felt like the room was spinning a little bit. She states that she has a breakthrough seizure once every few months, has not had one recently. Denies recent illness or trauma. Denies fever, visual changes, neck pain, chest pain, shortness of breath, abdominal pain, nausea, vomiting, numbness, focal weakness, change in bowel or bladder habits. She states that she has a primary care provider in [place] and is also followed by a neurologist. Patient has not taken any medication for her headache. She reports that the dizziness has resolved completely and that her tingling is improving. Related Data Home Medications Medication Instructions Recorded Confirmed oxcarbazepine [Trileptal] 900 mg PO HS 06/16/13 12/01/20 mesalamine [Lialda] See Rx Instructions .ROUTE .COMPLEX 12/01/20 12/01/20 Allergies Allergy/AdvReac Type Severity Reaction Status Date / Time Sulfa (Sulfonamide AdvReac Intermediate Nausea Unverified 09/19/20 11:01 Antibiotics) General Stated Complaint: Dizzy/Sync KRIS: 2 Review of Systems <KATE Pollard - Last Filed: 12/01/20 23:43> Constitutional Constitutional: Reports fatigue, Denies fever(s) and Reports headache(s) Eyes Eyes: Denies change in vision ENT Ears, Nose, Mouth, and Throat: Reports dizziness, Reports headache(s) and Denies neck pain Cardiovascular Cardiovascular: Denies chest pain and Denies dyspnea Respiratory Respiratory: Denies cough and Denies dyspnea Gastrointestinal Gastrointestinal: Denies abdominal pain, Denies nausea and Denies vomiting Genitourinary Genitourinary: Denies dysuria Musculoskeletal Musculoskeletal: Denies back pain, Denies neck pain, Denies numbness and Reports tingling Integumentary/Breasts Skin/Breast: Denies rash Neurologic Neurologic: Reports dizziness, Reports headache(s), Denies numbness, Reports tingling and Reports weakness (Generalized) Endocrine Endocrine: Reports fatigue PFSH <KATE Pollard - Last Filed: 12/01/20 23:43> Social History Smoking/Tobacco Use Status: Former Tobacco Use Smoking risk assessment performed?: Yes Alcohol Intake: current Alcohol Intake frequency: a few times a week Alcohol type: wine Drug use: Never Substance use type: does not use Do you feel safe at home: Yes Do you feel safe in your relationship?: Yes Exam <KATE Pollard - Last Filed: 12/01/20 23:43> Const General: cooperative, healthy appearing, comfortable and no acute distress Orientation: alert, awake and oriented x3 HENMT Head: normal to inspection, normocephalic and atraumatic General nose exam: external nose normal Face and sinus: normal facial exam Mouth: moist mucous membranes Throat: posterior oropharynx normal Eyes General: appearance normal, both eyes and all related structures Alignment and Position: alignment normal Periorbital: periorbital findings normal Eyelids: eyelids normal Conjunctivae: conjunctivae normal Sclera: sclerae normal Cornea: corneas normal Pupils: PERRL EOM: EOM intact bilaterally Direct ophthalmoscopy: normal light reflex Neck Neck: normal visual inspection, full ROM, no meningeal signs, trachea midline, supple and nontender Resp Effort & Inspection: normal respiratory effort and able to speak in complete sentences Auscultation: clear to auscultation bilaterally Cardio Rate: regular rate Rhythm: regular rhythm GI Palpation: soft and nontender Auscultation: normal bowel sounds Back/Spine/Pelvis Back: No back tenderness Skin General skin exam: no rashes or lesions noted Neuro General: patient alert, patient awake, patient oriented x3, moves all extremities and no focal motor deficits Cranial Nerves: CN's II-XI intact bilaterally Cognition: normal cognition Speech: speech normal Gait: normal gait Motor: muscle tone normal throughout, strength 5/5 throughout, no pronator drift, no movement abnormalities noted and no fasciculations Sensory Exam: no sensory deficits noted Coordination: [id number] test normal and Does not sway with eyes open Extrem General: normal to inspection, full ROM and capillary refill normal Psych Appearance: grossly normal Mental Status: mental status grossly normal Course <KATE Pollard - Last Filed: 12/01/20 23:43> Vital Signs Vital signs: Vital Signs Temperature 36.6 C 12/01/20 21:06 Pulse 72 12/01/20 21:06 Respiratory Rate 18 12/01/20 21:06 Blood Pressure 149/59 H 12/01/20 21:06 Pulse Oximetry 97 12/01/20 21:06 Temperature 36.6 C 12/01/20 21:06 Pulse 72 12/01/20 21:06 Pulse 70 12/01/20 22:52 Respiratory Rate 19 12/01/20 22:52 Respiratory Effort Non-Labored 12/01/20 21:23 Respiratory Depth Normal 12/01/20 21:23 Respiratory Pattern Normal 12/01/20 21:23 Blood Pressure 149/59 H 12/01/20 21:06 Blood Pressure Position Supine 12/01/20 21:06 Pulse Oximetry 95 12/01/20 22:52 Oxygen Delivery Method Room Air 12/01/20 21:06 Oxygen Flow Rate 0 12/01/20 21:06 Pain Level 0 12/01/20 21:06 Lab/Test Results Lab/Test Results: Laboratory Tests Range/Units 12/01/20 12/01/20 12/01/20 21:30 21:30 21:30 WBC (4.4-10.8) 10^3/uL 7.01 RBC (3.93-5.22) 10^6/uL 3.93 Hgb (11.2-15.7) g/dL 12.4 Hct (36.0-46.0) % 35.3 L MCV (80-95) fL 89.8 MCH (27.0-33.0) pg 31.6 MCHC (32.0-36.0) % 35.1 RDW (11.7-14.6) % 12.6 Plt Count (130-400) 10^3/uL 362 MPV (8.0-11.0) fL 8.9 Immature Gran % 0.4 Neutrophils % 58.9 Lymphocytes % 28.4 Monocytes % 8.0 Eosinophils % 3.4 Basophils % 0.9 Nucleated RBC % % 0 Absolute Neutrophils (1.2-6.7) 10^3/uL 4.13 Absolute Lymphocytes (1.2-3.4) 10^3/uL 1.99 Absolute Monocytes (0.1-0.8) 10^3/uL 0.56 Absolute Eosinophils (0.0-0.7) 10^3/uL 0.24 Absolute Basophils (0.0-0.2) 10^3/uL 0.06 PT (9.3-11.0) sec 10.4 INR (0.9-1.1) 1.0 APTT (21.0-27.5) sec 24.2 Sodium (136-145) mmol/L 127 L Potassium (3.5-5.1) mmol/L 3.7 Chloride (98-107) mmol/L 93 L Carbon Dioxide (21.0-32.0) mmol/L 26.1 Anion Gap (3-11) mmol/L 7.9 BUN (7-18) mg/dL 21 H Creatinine (0.55-1.02) mg/dL 0.6 Estimated GFR/1.73 m2 (mL/min/1.73m2) >= 60.00 Glucose (74-106) mg/dL 121 H Calcium (8.5-10.1) mg/dL 8.8 Magnesium (1.8-2.4) mg/dL 1.9 Total Bilirubin (0.2-1.0) mg/dL 0.2 AST (15-37) U/L 14 L ALT (14-59) U/L 28 Alkaline Phosphatase (46-116) U/L 96 Troponin I (<0.06) ng/mL < 0.05 Total Protein (6.4-8.2) g/dL 6.9 Albumin (3.4-5.0) g/dL 3.9 Sign Out <KATE Pollard - Last Filed: 12/01/20 23:43> Sign Out Data: Sign Out Comment: 60-year-old female, history of seizure disorder, on Trileptal. Patient reports mild frontal headache, feeling off balance and or dizzy, facial paresthesias, general fatigue for the past couple of days. Upon presentation headache is a 2 or 3 out of 10, feeling of being off balance has resolved completely. Paresthesias to her lips have almost completely resolved. Initial work-up in the ER unremarkable. She has remained neurologically intact. Agreeable to obtaining a repeat troponin at the 3-hour timeframe. Patient with chronic hyponatremia most likely secondary to Trileptal. Last updated by Bernardino Noe PA at 12/01/20 23:43
--- NOTE | 2020-12-01 23:26 | NUR.NOTE ---
Nursing Note: Pt and updated on plan of care at approx 2300.
--- NOTE | 2020-12-02 | RT.EKG_ITS ---
APPROVED REPORT Exam: Resting ECG Patient Location: E HR:63 bpm ECG Measurements Heart Rate 63 AXIS WI 191 P 54 QRSd 107 QRS -14 QT 430 T 18 QTc 440 Conclusion Sinus rhythm...normal P axis, V-rate 60- 99 Probable left atrial enlargement...P >50mS, <-0.10mV V1
[2020-12-02 00:58] LABS: Troponin I < 0.05 ng/mL (<0.06)
[2020-12-02 01:15] VITALS: BP 138/65; PULSE 68; RESP 12; TEMP 36.6; O2SAT 93
== END 2020-12-02 01:17 | disposition home or self-care (01) ==
PROVIDERS: Physician Assistant; Emergency Provider Emergency Medicine; PCP Family Medicine
DX: E87.1 Hypo-osmolality and hyponatremia (principal); R20.2 Paresthesia of skin; R53.83 Other fatigue
CPT/HCPCS: 80053; 93005; 99284; 70450; 71046; 83735; 84484; 85025; 85610; 85730; 93010; 99283

== ENCOUNTER 2022-08-25 00:44 | Outpatient (RCR) | payer BC, SELFPAY ==
[2022-08-25] VITALS (7 sets, daily range): BP systolic 120–133; BP diastolic 70–85; PULSE 68–88; RESP 16–17; TEMP 36.6–37.3; O2SAT 95–100
[2022-08-25] MEDS: Acetaminophen 325 MG TAB 650 MG PO (09:11)
[2022-08-25] MEDS: Loratidine 10 MG TAB PO (09:11)
[2022-08-25] MEDS: Hydrocortisone SOD SUC. 100 MG VIAL IVP (09:11)
[2022-08-25] MEDS: Normal Saline Flush 10 ML SYR IVP (09:11)
[2022-08-25 10:08] LABS: HCT 26.6 % (36.0-46.0); HGB 8.5 g/dL (11.2-15.7); MCH 28.5 pg (27.0-33.0); MCV 89 fL (80-95); MPV 8.5 fL (8.0-11.0); Platelet Count 646 10^3/uL (130-400); RBC 2.98 10^6/uL (3.93-5.22); RDW-SD 49.1 fL; WBC 7.02 10^3/uL (4.4-10.8)
[2022-08-25] MEDS: inFLIXimab 600 MG in Normal Saline 250 ML 125 MG IVPB (10:23)
[2022-08-25 10:49] LABS: ALT 24 U/L (14-59); AST 12 U/L (15-37); Albumin 3.2 g/dL (3.4-5.0); Alkaline Phosphatase 57 U/L (46-116); Bilirubin, Direct < 0.1 mg/dL (0.0-0.2); Bilirubin, Total 0.1 mg/dL (0.2-1.0); C-Reactive Protein < 0.05 mg/dL (0.0-0.3); Total Protein 6.5 g/dL (6.4-8.2)
== END 2022-08-26 23:59 | disposition home or self-care (01) ==
LOC: INF 00:44
PROVIDERS: PCP Family Medicine; Visit Provider Family Medicine
DX: K51.90 Ulcerative colitis, unspecified, without complications (principal)
CPT/HCPCS: 36415; 80076; 85027; 96365; 96366; 96374; 96375; 96413; 96415; 86140; J1720; J1745

== ENCOUNTER 2022-09-28 02:46 | Outpatient (RCR) | payer BC, SELFPAY ==
[2022-08-27 00:13] VITALS: BP 122/75; PULSE 85; RESP 17; TEMP 36.8
[2022-09-28] MEDS: Loratidine 10 MG TAB PO (09:29)
[2022-09-28] MEDS: Normal Saline Flush 10 ML SYR IVP (09:29)
[2022-09-28] MEDS: Acetaminophen 325 MG TAB 650 MG PO (09:29)
[2022-09-28] MEDS: Hydrocortisone SOD SUC. 100 MG VIAL IVP (09:29)
[2022-09-28 09:40] VITALS: BP 130/84; PULSE 72; RESP 16; TEMP 36.2; O2SAT 98
[2022-09-28] MEDS: inFLIXimab 600 MG in Normal Saline 250 ML 125 MG IVPB (10:06)
[2022-09-28 10:22] VITALS: BP 124/79; PULSE 68; RESP 17; TEMP 36.3; O2SAT 97
[2022-09-28 10:40] VITALS: BP 121/79; PULSE 71; RESP 16; TEMP 36.6; O2SAT 97
[2022-09-28 10:57] VITALS: BP 121/78; PULSE 71; RESP 18; TEMP 36.4; O2SAT 97
[2022-09-28 11:27] VITALS: BP 125/80; PULSE 75; RESP 16; TEMP 36.6; O2SAT 95
[2022-09-28 12:00] VITALS: BP 125/78; PULSE 72; RESP 16; TEMP 36.5; O2SAT 96
== END 2022-10-24 23:59 | disposition home or self-care (01) ==
LOC: INF 02:46
PROVIDERS: PCP Family Medicine; Visit Provider Family Medicine
DX: K51.90 Ulcerative colitis, unspecified, without complications (principal)
CPT/HCPCS: 96365; 96366; 96374; 96375; 96413; 96415; J1720; J1745

== ENCOUNTER 2022-10-06 01:56 | Outpatient (CLI) | payer BC, SELFPAY ==
[2022-10-06 12:41] LABS: Abs Immature Grans 0.03 10^3/uL (0.0-0.06); Absolute Basophil Count 0.08 10^3/uL (0.0-0.2); Absolute Eosinophil Count 0.12 10^3/uL (0.0-0.7); Absolute Lymphocyte Count 1.63 10^3/uL (1.2-3.4); Absolute Neutrophil Count 3.54 10^3/uL (1.2-6.7); Basophils % 1.3; HCT 30.3 % (36.0-46.0); HGB 9.7 g/dL (11.2-15.7); Immature Grans % 0.5; Lymphocytes % 27.2; MCH 25.6 pg (27.0-33.0); MCV 80 fL (80-95); MPV 8.8 fL (8.0-11.0); Platelet Count 577 10^3/uL (130-400); RBC 3.79 10^6/uL (3.93-5.22); RDW 14.6 % (11.7-14.6); RDW-SD 42.8 fL
[2022-10-06 12:51] LABS: C-Reactive Protein 0.42 mg/dL (0.0-0.3)
[2022-10-06 13:50] LABS: Vitamin D 25 Total 47.2 ng/mL (30-100)
[2022-10-11 16:58] LABS: Infliximab 79 mcg/mL (<=5.0)
== END 2022-10-06 01:57 | disposition home or self-care (01) ==
LOC: LBO 01:56
PROVIDERS: PCP Family Medicine; Visit Provider Internal Medicine
DX: K51.018 Ulcerative (chronic) pancolitis with other complication (principal)
CPT/HCPCS: 36415; 82306; 82397; 85025; 86140

== ENCOUNTER 2022-11-13 13:42 | Outpatient (REF) | payer BC, SELFPAY ==
[2022-11-13 15:59] LABS: ALT 21 U/L (14-59); AST 15 U/L (15-37); Albumin 3.5 g/dL (3.4-5.0); Alkaline Phosphatase 90 U/L (46-116); Anion Gap 6.7 mmol/L (3-11); BUN 13 mg/dL (7-18); CO2 27.3 mmol/L (21.0-32.0); CREATININE 0.7 mg/dL (0.55-1.02); Calcium 9.1 mg/dL (8.5-10.1); Chloride 95 mmol/L (98-107); Estimated GFR 96.52 (mL/min/1.73m2); Glucose 95 mg/dL (74-106); Potassium 4.6 mmol/L (3.5-5.1); Sodium 129 mmol/L (136-145); Total Protein 6.8 g/dL (6.4-8.2)
[2022-11-13 16:57] LABS: Bilirubin, Total 0.2 mg/dL (0.2-1.0)
== END 2022-11-13 13:43 | disposition home or self-care (01) ==
LOC: LBN 13:42
PROVIDERS: PCP Family Medicine; Visit Provider Nurse Practitioner Family
DX: U07.1 COVID-19 (principal)
CPT/HCPCS: 80053

== ENCOUNTER 2022-11-23 02:11 | Outpatient (RCR) | payer BC, SELFPAY ==
[2022-10-25 00:11] VITALS: BP 125/78; PULSE 72; RESP 16; TEMP 36.5
[2022-11-23] VITALS (7 sets, daily range): BP systolic 109–137; BP diastolic 70–86; PULSE 64–75; RESP 17; TEMP 36–36.7; O2SAT 96–100
[2022-11-23] MEDS: Acetaminophen 325 MG TAB 650 MG PO (09:23)
[2022-11-23] MEDS: Loratidine 10 MG TAB PO (09:23)
[2022-11-23] MEDS: Hydrocortisone SOD SUC. 100 MG VIAL IVP (09:33)
[2022-11-23] MEDS: Normal Saline Flush 10 ML SYR IVP (09:33)
[2022-11-23 10:00] LABS: Abs Immature Grans 0.01 10^3/uL (0.0-0.06); Absolute Basophil Count 0.06 10^3/uL (0.0-0.2); Absolute Eosinophil Count 0.08 10^3/uL (0.0-0.7); Absolute Lymphocyte Count 2.44 10^3/uL (1.2-3.4); Absolute Monocyte Count 0.85 10^3/uL (0.1-0.8); Absolute Neutrophil Count 3.65 10^3/uL (1.2-6.7); Basophils % 0.8; Eosinophils % 1.1; HCT 30.9 % (36.0-46.0); HGB 9.9 g/dL (11.2-15.7); Immature Grans % 0.1; Lymphocytes % 34.4; MCH 24.1 pg (27.0-33.0); MCV 75 fL (80-95); Neutrophils % 51.6; Platelet Count 495 10^3/uL (130-400); RDW 18.2 % (11.7-14.6); RDW-SD 49.6 fL; WBC 7.09 10^3/uL (4.4-10.8)
[2022-11-23 10:14] LABS: ALT 20 U/L (14-59); AST 17 U/L (15-37); Albumin 3.6 g/dL (3.4-5.0); Alkaline Phosphatase 86 U/L (46-116); Bilirubin, Direct 0.1 mg/dL (0.0-0.2); Bilirubin, Total 0.2 mg/dL (0.2-1.0); C-Reactive Protein 0.48 mg/dL (0.0-0.3); Total Protein 7.1 g/dL (6.4-8.2)
[2022-11-23] MEDS: inFLIXimab 600 MG in Normal Saline 250 ML 125 MG IVPB (10:23)
[2022-11-28 01:01] LABS: Infliximab 10 mcg/mL (<=5.0)
== END 2022-11-24 23:59 | disposition home or self-care (01) ==
LOC: INF 02:11
PROVIDERS: PCP Family Medicine; Visit Provider Family Medicine
DX: K51.90 Ulcerative colitis, unspecified, without complications (principal)
CPT/HCPCS: 36415; 80076; 82397; 96365; 96366; 96413; 96415; 85025; 86140; J1720; J1745

== ENCOUNTER 2023-01-18 02:42 | Outpatient (RCR) | payer BC, SELFPAY ==
[2022-11-25 00:18] VITALS: BP 137/86; PULSE 75; RESP 17; TEMP 36.7
[2023-01-18] VITALS (7 sets, daily range): BP systolic 129–153; BP diastolic 78–86; PULSE 59–68; RESP 7–17; TEMP 36.9–37.1; O2SAT 98–99
[2023-01-18] MEDS: Hydrocortisone SOD SUC. 100 MG VIAL IVP (09:33)
[2023-01-18] MEDS: Acetaminophen 325 MG TAB 650 MG PO (09:33)
[2023-01-18] MEDS: Loratidine 10 MG TAB PO (09:33)
[2023-01-18] MEDS: Normal Saline Flush 10 ML SYR IVP (09:33)
[2023-01-18] MEDS: inFLIXimab 600 MG in Normal Saline 250 ML 125 MG IVPB (10:05)
== END 2023-01-24 23:59 | disposition home or self-care (01) ==
LOC: INF 02:42
PROVIDERS: PCP Family Medicine; Visit Provider Family Medicine
DX: K51.90 Ulcerative colitis, unspecified, without complications (principal)
CPT/HCPCS: 96365; 96366; 96413; 96415; J1720; J1745

== ENCOUNTER 2023-03-15 02:07 | Outpatient (RCR) | payer BC, SELFPAY ==
[2023-01-25 00:02] VITALS: BP 146/86; PULSE 68; RESP 17; TEMP 37
[2023-03-15] VITALS (7 sets, daily range): BP systolic 130–146; BP diastolic 79–85; PULSE 52–63; RESP 17; TEMP 36.7–37.2; O2SAT 97–100
[2023-03-15] MEDS: Loratidine 10 MG TAB PO (09:13)
[2023-03-15] MEDS: Acetaminophen 325 MG TAB 650 MG PO (09:13)
[2023-03-15] MEDS: Hydrocortisone SOD SUC. 100 MG VIAL IVP (09:14)
[2023-03-15 09:33] LABS: HGB 11.3 g/dL (11.2-15.7); MCH 27.2 pg (27.0-33.0); MCHC 34.2 % (32.0-36.0); MCV 80 fL (80-95); Platelet Count 341 10^3/uL (130-400); RBC 4.15 10^6/uL (3.93-5.22); RDW 17.2 % (11.7-14.6); RDW-SD 49.9 fL; WBC 4.16 10^3/uL (4.4-10.8)
[2023-03-15] MEDS: inFLIXimab 600 MG in Normal Saline 250 ML 125 MG IVPB (09:43)
[2023-03-15 09:49] LABS: ALT 83 U/L (14-59); AST 41 U/L (15-37); Albumin 3.8 g/dL (3.4-5.0); Alkaline Phosphatase 104 U/L (46-116); Bilirubin, Direct 0.1 mg/dL (0.0-0.2); Bilirubin, Total 0.3 mg/dL (0.2-1.0); C-Reactive Protein 0.15 mg/dL (0.0-0.3); Total Protein 6.8 g/dL (6.4-8.2)
[2023-03-15] MEDS: Normal Saline Flush 10 ML SYR IVP (11:48)
== END 2023-03-26 23:59 | disposition home or self-care (01) ==
LOC: INF 02:07
PROVIDERS: PCP Family Medicine; Visit Provider Family Medicine
DX: K51.90 Ulcerative colitis, unspecified, without complications (principal)
CPT/HCPCS: 80076; 85027; 96365; 96366; 96413; 96415; 86140; J1720; J1745

== ENCOUNTER 2023-05-09 03:25 | Outpatient (CLI) | payer BC, SELFPAY ==
[2023-05-09 13:53] LABS: Abs Immature Grans 0.01 10^3/uL (0.0-0.06); Absolute Basophil Count 0.04 10^3/uL (0.0-0.2); Absolute Lymphocyte Count 2.23 10^3/uL (1.2-3.4); Absolute Monocyte Count 0.49 10^3/uL (0.1-0.8); Absolute Neutrophil Count 1.16 10^3/uL (1.2-6.7); Basophils % 0.9; Eosinophils % 7.1; HCT 34.5 % (36.0-46.0); HGB 11.8 g/dL (11.2-15.7); Immature Grans % 0.2; Lymphocytes % 52.7; MCH 29.3 pg (27.0-33.0); MCHC 34.2 % (32.0-36.0); MCV 86 fL (80-95); MPV 8.8 fL (8.0-11.0); Monocytes % 11.6; Neutrophils % 27.5; Platelet Count 312 10^3/uL (130-400); RBC 4.03 10^6/uL (3.93-5.22); RDW 17.6 % (11.7-14.6); RDW-SD 55.4 fL; WBC 4.23 10^3/uL (4.4-10.8)
[2023-05-09 14:51] LABS: C-Reactive Protein 0.38 mg/dL (0.0-0.3)
== END 2023-05-09 03:26 | disposition home or self-care (01) ==
LOC: LBO 03:26
PROVIDERS: PCP Family Medicine; Visit Provider Internal Medicine
DX: K51.019 Ulcerative (chronic) pancolitis with unspecified complications (principal)
CPT/HCPCS: 82397; 85025; 86140

== ENCOUNTER 2023-05-10 02:14 | Outpatient (RCR) | payer BC, SELFPAY ==
[2023-03-27 00:01] VITALS: BP 146/79; PULSE 63; RESP 17; TEMP 36.9
[2023-05-10] VITALS (7 sets, daily range): BP systolic 136–154; BP diastolic 76–90; PULSE 50–68; RESP 16–17; TEMP 36.5–36.8; O2SAT 98–100
[2023-05-10] MEDS: Hydrocortisone SOD SUC. 100 MG VIAL IVP (09:00)
[2023-05-10] MEDS: Loratidine 10 MG TAB PO (09:00)
[2023-05-10] MEDS: Acetaminophen 325 MG TAB 650 MG PO (09:00)
[2023-05-10] MEDS: inFLIXimab 600 MG in Normal Saline 250 ML 125 MG IVPB (09:16)
== END 2023-05-26 23:59 | disposition home or self-care (01) ==
LOC: INF 02:14
PROVIDERS: PCP Family Medicine; Visit Provider Family Medicine
DX: K51.90 Ulcerative colitis, unspecified, without complications (principal)
CPT/HCPCS: 96365; 96366; J1720; J1745

== ENCOUNTER 2023-06-20 15:44 | Outpatient (REF) | payer BC, SELFPAY ==
[2023-06-20 16:22] LABS: Bilirubin Negative (Negative); Blood Negative (Negative); Clarity Clear (Clear); Glucose Negative (Negative); Ketones Negative (Negative); Leukocyte Esterase Negative (Negative); Nitrite Negative (Negative); Urobilinogen 0.2 mg/dL (Up to 0.2)
== END 2023-06-20 15:45 | disposition home or self-care (01) ==
LOC: LBN 15:44
PROVIDERS: PCP Family Medicine; Visit Provider Internal Medicine
DX: R35.0 Frequency of micturition (principal)
CPT/HCPCS: 81003

== ENCOUNTER 2023-07-10 01:31 | Outpatient (CLI) | payer BC, SELFPAY ==
[2023-07-10 10:18] LABS: ALT 95 U/L (14-59); AST 47 U/L (15-37); Albumin 3.8 g/dL (3.4-5.0); Alkaline Phosphatase 91 U/L (46-116); Anion Gap 6.8 mmol/L (3-11); BUN 13 mg/dL (7-18); Bilirubin, Direct 0.1 mg/dL (0.0-0.2); Bilirubin, Total 0.3 mg/dL (0.2-1.0); CO2 27.2 mmol/L (21.0-32.0); CREATININE 0.7 mg/dL (0.55-1.02); Calcium 9.1 mg/dL (8.5-10.1); Chloride 93 mmol/L (98-107); Estimated GFR 96.52 (mL/min/1.73m2); Glucose 103 mg/dL (74-106); Sodium 127 mmol/L (136-145); Total Protein 6.9 g/dL (6.4-8.2)
[2023-07-10 10:34] LABS: Calculated LDL 143 mg/dL (<100); Cholesterol 261 mg/dL (<200); HDL Cholesterol 111 mg/dL (40-60); Triglyceride 36 mg/dL (<150)
[2023-07-13 20:14] LABS: Infliximab 13 mcg/mL (<=5.0)
== END 2023-07-10 01:32 | disposition home or self-care (01) ==
LOC: LBO 01:31
PROVIDERS: PCP Family Medicine; Visit Provider Internal Medicine
DX: Z51.81 Encounter for therapeutic drug level monitoring (principal); Z79.620 Long term (current) use of immunosuppressive biologic; K51.019 Ulcerative (chronic) pancolitis with unspecified complications
CPT/HCPCS: 36415; 80053; 80061; 80076; 82397; 81003

== ENCOUNTER 2023-07-12 09:56 | Outpatient (REF) | payer BC, SELFPAY ==
[2023-07-12 10:59] LABS: Bilirubin Negative (Negative); Blood Negative (Negative); Clarity Clear (Clear); Glucose Negative (Negative); Ketones Negative (Negative); Leukocyte Esterase Small (Negative); Nitrite Negative (Negative); Urobilinogen 0.2 mg/dL (Up to 0.2)
== END 2023-07-12 09:57 | disposition home or self-care (01) ==
LOC: LBN 09:56
PROVIDERS: PCP Family Medicine; Visit Provider Internal Medicine
DX: R35.0 Frequency of micturition (principal)
CPT/HCPCS: 81003

== ENCOUNTER 2023-07-13 01:49 | Outpatient (RCR) | payer BC, SELFPAY ==
[2023-05-27 00:01] VITALS: BP 136/84; PULSE 68; RESP 16; TEMP 36.5
[2023-07-13] VITALS (8 sets, daily range): BP systolic 135–150; BP diastolic 68–86; PULSE 60–72; RESP 16–17; TEMP 35.4–36; O2SAT 96–99
[2023-07-13] MEDS: Loratidine 10 MG TAB PO (08:51)
[2023-07-13] MEDS: Acetaminophen 325 MG TAB 650 MG PO (08:51)
[2023-07-13] MEDS: Hydrocortisone SOD SUC. 100 MG VIAL IVP (08:51)
[2023-07-13] MEDS: Normal Saline Flush 10 ML SYR IVP (08:51)
[2023-07-13 09:05] LABS: HCT 36.5 % (36.0-46.0); HGB 12.7 g/dL (11.2-15.7); MCH 30.5 pg (27.0-33.0); MCHC 34.8 % (32.0-36.0); MCV 88 fL (80-95); MPV 8.9 fL (8.0-11.0); Platelet Count 317 10^3/uL (130-400); RBC 4.16 10^6/uL (3.93-5.22); RDW 13.8 % (11.7-14.6); RDW-SD 44.5 fL; WBC 4.44 10^3/uL (4.4-10.8)
[2023-07-13] MEDS: inFLIXimab 600 MG in Normal Saline 250 ML 125 MG IVPB (09:18)
[2023-07-13 09:26] LABS: ALT 111 U/L (14-59); AST 48 U/L (15-37); Albumin 3.9 g/dL (3.4-5.0); Alkaline Phosphatase 96 U/L (46-116); Bilirubin, Direct 0.1 mg/dL (0.0-0.2); Bilirubin, Total 0.4 mg/dL (0.2-1.0); C-Reactive Protein 0.42 mg/dL (0.0-0.3); Total Protein 7.2 g/dL (6.4-8.2)
== END 2023-07-26 23:59 | disposition home or self-care (01) ==
LOC: INF 01:49
PROVIDERS: PCP Family Medicine; Visit Provider Family Medicine
DX: K51.90 Ulcerative colitis, unspecified, without complications (principal); K51.019 Ulcerative (chronic) pancolitis with unspecified complications; Z51.81 Encounter for therapeutic drug level monitoring; Z79.620 Long term (current) use of immunosuppressive biologic
CPT/HCPCS: 36415; 80076; 85027; 96365; 96366; 96374; 96375; 96413; 96415; 86140; J1720; J1745

== ENCOUNTER 2023-08-13 03:54 | Outpatient (CLI) | payer BC, SELFPAY ==
--- OUTSIDE RECORDS SUMMARY | 2023-08-13 03:56 | XMS_ITS | CCD ---
Author Name Unknown Address [address] [place] [address] [phone] Organization Unknown Address [address] [place] [address] [phone] Care Team Providers Care Clothes Ironer Name Role Phone RAEANN SNOWDEN Attending Physician [phone] Vital Signs Unknown or Not Available. Allergies Allergy Code Allergy Type Reaction Status SULFA (sulfonamide) 0 Drug allergy Act jacquie Procedures Unknown or Not Available. History of Immunizations Unknown or Not Available. Problems Unknown or Not Available. Results Unknown or Not Available. Active Medications Medication Code Dose Units Frequency Route Modificatio n Start Date/Time Trileptal 300MG Oral Tablet 227755 300 MILLIGRAMS THREE TIMES A DAY ORAL 10/03/2014 07:54 Prescription Detail TAKE 300 MILLIGRAMS ORAL THREE TIMES A D AY Medications Administered During Visit Unknown or Not Available. Encounters Encounter Diagnosis Diagnosis Code Start Date Encounter for screening mamm ogram for malignant neoplasm of breast Z1231 07/11/2023 Social History Smoking Status Code Start Date End Date Former smoker [id number] Patient Decision Aids Unknown or Not Available. Discharge Instructions You were admitted to [facility] on 07/11/2023 09:56 with a principal diagnosis of Encounter for screening mammogram for malignant neoplasm of breast You were discharged from [facility] on 07/11/2023 09:56 Should you have any questions prior to discharge, please contact a member of your healthcare team. If you have left the hospital and have any questions, please contact your primary care physician. Chief Complaint and Reason For Visit Chief Complaint Date of Onset SCR Function Status Unknown or Not Available. Plan of Care Unknown or Not Available. Referral/Transition of Care Unknown or Not Available.
--- OUTSIDE RECORDS SUMMARY | 2023-08-13 03:56 | XMS_ITS | CCD ---
Author Name Unknown Address [address] [place] [address] [phone] Organization Unknown Address [address] [place] [address] [phone] Care Team Providers Care Catering Administrative Assistant Name Role Phone RAEANN SNOWDEN Attending Physician [phone] Vital Signs Unknown or Not Available. Allergies Allergy Code Allergy Type Reaction Status SULFA (sulfonamide) 0 Drug allergy Act jacquie Procedures Unknown or Not Available. History of Immunizations Unknown or Not Available. Problems Unknown or Not Available. Results ECW URINE CULTURE* - Collect Date/Time: 01/31/2022 10:23 Test Name Code Test Result Test Units Test Ref Rang e COLLECTION MODE: 27660-6 NOT STATED N/A Active Medications Medication Code Dose Units Frequency Route Modificatio n Start Date/Time Trileptal 300MG Oral Tablet [id number] 300 MILLIGRAMS THREE TIMES A DAY ORAL 10/03/2014 07:54 Prescription Detail TAKE 300 MILLIGRAMS ORAL THREE TIMES A D AY Medications Administered During Visit Unknown or Not Available. Encounters Encounter Diagnosis Diagnosis Code Start Date Abdominal pain [id number] 01/31/2022 Social History Smoking Status Code Start Date End Date Former smoker [id number] Patient Decision Aids Unknown or Not Available. Discharge Instructions You were admitted to [facility] on 01/31/2022 17:08 with a principal diagnosis of Unspecified abdominal pain You had the following tests done:ECW URINE CULTURE* You were discharged from [facility] on 01/31/2022 17:08 Should you have any questions prior to discharge, please contact a member of your healthcare team. If you have left the hospital and have any questions, please contact your primary care physician. Chief Complaint and Reason For Visit Unknown or Not Available. Function Status Unknown or Not Available. Plan of Care Unknown or Not Available. Referral/Transition of Care Unknown or Not Available.
[2023-08-13 11:34] LABS: ALT 122 U/L (14-59); AST 60 U/L (15-37); Albumin 3.9 g/dL (3.4-5.0); Alkaline Phosphatase 86 U/L (46-116); Bilirubin, Direct 0.1 mg/dL (0.0-0.2); Bilirubin, Total 0.3 mg/dL (0.2-1.0)
[2023-08-13 18:02] LABS: Vitamin B12 851 pg/mL (193-986)
[2023-08-17 00:21] LABS: Infliximab 34 mcg/mL (<=5.0)
== END 2023-08-13 03:55 | disposition home or self-care (01) ==
LOC: LBO 10:53 → LBN 16:23 → LBO 16:28
PROVIDERS: PCP Family Medicine; Visit Provider Internal Medicine
DX: R74.8 Abnormal levels of other serum enzymes (principal)
CPT/HCPCS: 36415; 80076; 82397; 82607

== ENCOUNTER 2023-08-14 13:30 | Outpatient (REF) | payer BC, SELFPAY ==
--- OUTSIDE RECORDS SUMMARY | 2023-08-14 13:33 | XMS_ITS | CCD ---
Author Name Unknown Address [address] [place] [address] [id number] Organization Unknown Address [address] [place] [address] [phone] Care Team Providers Care Pipeline Superintendent Name Role Phone RAEANN SNOWDEN Attending Physician [phone] Vital Signs Unknown or Not Available. Allergies Allergy Code Allergy Type Reaction Status SULFA (sulfonamide) 0 Drug allergy Act jacquie Procedures Unknown or Not Available. History of Immunizations Unknown or Not Available. Problems Unknown or Not Available. Results ECW URINE CULTURE* - Collect Date/Time: 01/31/2022 10:23 Test Name Code Test Result Test Units Test Ref Rang e COLLECTION MODE: 93346-9 NOT STATED N/A Active Medications Medication Code Dose Units Frequency Route Modificatio n Start Date/Time Trileptal 300MG Oral Tablet [id number] 300 MILLIGRAMS THREE TIMES A DAY ORAL 10/03/2014 07:54 Prescription Detail TAKE 300 MILLIGRAMS ORAL THREE TIMES A D AY Medications Administered During Visit Unknown or Not Available. Encounters Encounter Diagnosis Diagnosis Code Start Date Abdominal pain [id number] 01/31/2022 Social History Smoking Status Code Start Date End Date Former smoker [id number] Patient Decision Aids Unknown or Not Available. Discharge Instructions You were admitted to [facility] on 01/31/2022 17:08 with a principal diagnosis of Unspecified abdominal pain You had the following tests done:ECW URINE CULTURE* You were discharged from [facility] on 01/31/2022 17:08 Should you have [...]
--- OUTSIDE RECORDS SUMMARY | 2023-08-14 13:33 | XMS_ITS | CCD ---
Author Name Unknown Address [address] [place] [address] [phone] Organization Unknown Address [address] [place] [address] [phone] Care Team Providers Care Chip Unloader Name Role Phone RAEANN SNOWDEN Attending Physician [phone] Vital Signs Unknown or Not Available. Allergies Allergy Code Allergy Type Reaction Status SULFA (sulfonamide) 0 Drug allergy Act jacquie Procedures Unknown or Not Available. History of Immunizations Unknown or Not Available. Problems Unknown or Not Available. Results Unknown or Not Available. Active Medications Medication Code Dose Units Frequency Route Modificatio n Start Date/Time Trileptal 300MG Oral Tablet 162122 300 MILLIGRAMS THREE TIMES A DAY ORAL 10/03/2014 07:54 Prescription Detail TAKE 300 MILLIGRAMS ORAL THREE TIMES A D AY Medications Administered During Visit Unknown or Not Available. Encounters Encounter Diagnosis Diagnosis Code Start Date Encounter for screening mamm ogram for malignant neoplasm of breast Z1231 07/11/2023 Social History Smoking Status Code Start Date End Date Former smoker [id number] Patient Decision Aids Unknown or Not Available. Discharge Instructions You were admitted to [facility] on 07/11/2023 09:56 with a principal diagnosis of Encounter for screening mammogram for malignant neoplasm of breast You were discharged from [facility] on 07/11/2023 09:56 Should you have any [...]
[2023-08-14 13:47] LABS: Bilirubin Negative (Negative); Blood Negative (Negative); Clarity Clear (Clear); Glucose Negative (Negative); Ketones Negative (Negative); Leukocyte Esterase Negative (Negative); Nitrite Negative (Negative); Urobilinogen 0.2 mg/dL (Up to 0.2)
== END 2023-08-14 13:31 | disposition home or self-care (01) ==
LOC: LBN 13:30
PROVIDERS: PCP Family Medicine; Visit Provider Internal Medicine
DX: R35.0 Frequency of micturition (principal)
CPT/HCPCS: 81003

== ENCOUNTER 2023-08-31 02:00 | Outpatient (CLI) | payer BC, SELFPAY ==
--- OUTSIDE RECORDS SUMMARY | 2023-08-31 02:01 | XMS_ITS | CCD ---
Author Name Unknown Address [address] [place] [address] [phone] Organization Unknown Address [address] [place] [address] [phone] Care Team Providers Care Firestopper Installer Name Role Phone RAEANN SNOWDEN Attending Physician [phone] Vital Signs Unknown or Not Available. Allergies Allergy Code Allergy Type Reaction Status SULFA (sulfonamide) 0 Drug allergy Act jacquie Procedures Unknown or Not Available. History of Immunizations Unknown or Not Available. Problems Unknown or Not Available. Results Unknown or Not Available. Active Medications Medication Code Dose Units Frequency Route Modificatio n Start Date/Time Trileptal 300MG Oral Tablet 897423 300 MILLIGRAMS THREE TIMES A DAY ORAL 10/03/2014 07:54 Prescription Detail TAKE 300 MILLIGRAMS ORAL THREE TIMES A D AY Medications Administered During Visit Unknown or Not Available. Encounters Encounter Diagnosis Diagnosis Code Start Date Mass of trunk [id number] 11/17/2022 Social History Smoking Status Code Start Date End Date Former smoker [id number] Patient Decision Aids Unknown or Not Available. Discharge Instructions You were admitted to [facility] on 11/17/2022 12:35 with a principal diagnosis of Localized swelling, mass and lump, trunk You were discharged from [facility] on 11/17/2022 12:35 Should you have any questions prior to discharge, please contact a member of your healthcare team. If you have left the hospital and have any questions, please contact your primary care physician. Chief Complaint and Reason For Visit Chief Complaint Date of Onset MASS OF CHEST WALL Function Status Unknown or Not Available. Plan of Care Unknown or Not Available. Referral/Transition of Care Unknown or Not Available.
--- OUTSIDE RECORDS SUMMARY | 2023-08-31 02:02 | XMS_ITS | CCD ---
Author Name Unknown Address [address] [place] [address] [phone] Organization Unknown Address [address] [place] [address] [phone] Care Team Providers Care Guide Foreign Tour Name Role Phone RAEANN SNOWDEN Attending Physician [phone] Vital Signs Unknown or Not Available. Allergies Allergy Code Allergy Type Reaction Status SULFA (sulfonamide) 0 Drug allergy Act jacquie Procedures Unknown or Not Available. History of Immunizations Unknown or Not Available. Problems Unknown or Not Available. Results Unknown or Not Available. Active Medications Medication Code Dose Units Frequency Route Modificatio n Start Date/Time Trileptal 300MG Oral Tablet 063843 300 MILLIGRAMS THREE TIMES A DAY ORAL 10/03/2014 07:54 Prescription Detail TAKE 300 MILLIGRAMS ORAL THREE TIMES A D AY Medications Administered During Visit Unknown or Not Available. Encounters Encounter Diagnosis Diagnosis Code Start Date Encounter for screening mamm ogram for malignant neoplasm of breast Z1231 07/11/2023 Social History Smoking Status Code Start Date End Date Former smoker [id number] Patient Decision Aids Unknown or Not Available. Discharge Instructions You were admitted to [facility] on 07/11/2023 09:56 with a principal diagnosis of Encounter for screening mammogram for malignant neoplasm of breast You were discharged from [facility] on 07/11/2023 09:56 Should you have [...]
[2023-08-31 11:26] LABS: Hemoglobin A1C 5.5 % (<5.7)
[2023-08-31 11:54] LABS: Calculated LDL 117 mg/dL (<100); Cholesterol 241 mg/dL (<200); Ferritin 31 ng/mL (8-252); HDL Cholesterol 117 mg/dL (40-60); Triglyceride 39 mg/dL (<150)
[2023-08-31 12:42] LABS: Iron 89 ug/dL (50-170); Total Iron Binding Capacity 298 ug/dL (250-450); Transferrin Sat 30 % (15-50)
[2023-08-31 19:50] LABS: HIV-1/2 Ag & Ab Screen Negative (Negative)
[2023-08-31 19:52] LABS: Hepatitis C Ab w Rflx HCV PCR Negative (Negative)
[2023-09-02 14:44] LABS: Ceruloplasmin 28.7 mg/dL
[2023-09-03 08:54] LABS: IgG 746 mg/dL (610-1616)
[2023-09-03 10:18] LABS: Alpha 1 Antitrypsin,Serum 124 mg/dL (90-200)
[2023-09-03 13:13] LABS: Albumin 65.9 % (55.8-66.1); Albumin g/dL 4.2 g/dL (3.6-5.2); Total Protein 6.4 g/dL (6.3-8.2)
[2023-09-03 13:51] LABS: Smooth Muscle Ab Screen Negative (Negative)
[2023-09-03 15:21] LABS: Mitochondrial Ab, M2 <0.1 U
[2023-09-03 16:03] LABS: ANA Interpretation Positive (Negative)
== END 2023-08-31 02:01 | disposition home or self-care (01) ==
LOC: LBO 02:00
PROVIDERS: PCP Family Medicine; Visit Provider Internal Medicine
DX: R74.01 Elevation of levels of liver transaminase levels (principal)
CPT/HCPCS: 36415; 80061; 82103; 82390; 82542; 82784; 83516; 86803; 87389; 82728; 83036; 83540; 83550; 84165; 86038; 86255

== ENCOUNTER 2023-09-09 09:28 | Emergency (ER) | payer BC, SELFPAY ==
[2023-09-09 09:40] VITALS: BP 160/64; PULSE 73; RESP 18; TEMP 36.6; O2SAT 96
--- OUTSIDE RECORDS SUMMARY | 2023-09-09 09:42 | XMS_ITS | CCD ---
Author Name Unknown Address [address] [place] [address] [phone] Organization Unknown Address [address] [place] [address] [phone] Care Team Providers Care Machine Rigger Name Role Phone RAEANN SNOWDEN Attending Physician [phone] Vital Signs Unknown or Not Available. Allergies Allergy Code Allergy Type Reaction Status SULFA (sulfonamide) 0 Drug allergy Act jacquie Procedures Unknown or Not Available. History of Immunizations Unknown or Not Available. Problems Unknown or Not Available. Results Unknown or Not Available. Active Medications Medication Code Dose Units Frequency Route Modificatio n Start Date/Time Trileptal 300MG Oral Tablet 974655 300 MILLIGRAMS THREE TIMES A DAY ORAL 10/03/2014 07:54 Prescription Detail TAKE 300 MILLIGRAMS ORAL THREE TIMES A D AY Medications Administered During Visit Unknown or Not Available. Encounters Encounter Diagnosis Diagnosis Code Start Date Mass of trunk [id number] 11/17/2022 Social History Smoking Status Code Start Date End Date Former smoker [id number] Patient Decision Aids Unknown or Not Available. Discharge Instructions You were admitted to [facility] on 11/17/2022 12:35 with a principal diagnosis of Localized swelling, mass and lump, trunk You were discharged from [facility] on 11/17/2022 12:35 Should you have any [...]
--- OUTSIDE RECORDS SUMMARY | 2023-09-09 09:43 | XMS_ITS | CCD ---
Author Name Unknown Address [address] [place] [address] [phone] Organization Unknown Address [address] [place] [address] [phone] Care Team Providers Care Cream Separator Operator Name Role Phone RAEANN SNOWDEN Attending Physician [phone] Vital Signs Unknown or Not Available. Allergies Allergy Code Allergy Type Reaction Status SULFA (sulfonamide) 0 Drug allergy Act jacquie Procedures Unknown or Not Available. History of Immunizations Unknown or Not Available. Problems Unknown or Not Available. Results Unknown or Not Available. Active Medications Medication Code Dose Units Frequency Route Modificatio n Start Date/Time Trileptal 300MG Oral Tablet [id number] 300 MILLIGRAMS THREE TIMES A DAY ORAL 10/03/2014 07:54 Prescription Detail TAKE 300 MILLIGRAMS ORAL THREE TIMES A D AY Medications Administered During Visit Unknown or Not Available. Encounters Encounter Diagnosis Diagnosis Code Start Date Encounter for screening mamm ogram for malignant neoplasm of breast Z1231 07/11/2023 Social History Smoking Status Code Start Date End Date Former smoker [id number] Patient Decision Aids Unknown or Not Available. Discharge Instructions You were admitted to [facility] on 07/11/2023 09:56 with a principal diagnosis of Encounter for screening mammogram for malignant neoplasm of breast You were discharged from [facility] on 07/11/2023 09:56 Should you have [...]
--- NOTE | 2023-09-09 09:45 | DI.RAD_ITS ---
Exam(s) XR KNEE RT 3V AP,LAT,AMINA EXAM: XR KNEE RT 3V AP,LAT,AMINA CLINICAL HISTORY: knee pain, right lateral. TECHNIQUE: 2D digital imaging was performed. COMPARISON: No exams were available for comparison FINDINGS: 3 views No evidence of acute fracture but there is a joint effusion. No obvious degenerative changes. Bone density normal. No osseous lesions. IMPRESSION: No acute osseous findings but there is a joint effusion which may signify internal derangement of the knee. Appropriate orthopedic follow-up recommended. DATA REPOSITORY: RADIATION DOSE DELIVERED:
--- NOTE | 2023-09-09 10:08 | W.ED.GENAD ---
HPI General Stated Complaint: Orthopedic KRIS: 4 Date/Time Provider Initiated Documentation: 09/09/23 09:42. HPI Narrative: This otherwise healthy 62-year-old female presents with report of right knee pain. She states she was dancing last evening and her right leg twisted laterally and now feels unstable and is painful, she is unable to place weight on it per patient. She denies any additional injuries. Denies any sensation changes distally. Denies history of issues with affected knee in the past. Related Data Home Medications Medication Instructions Recorded Confirmed oxcarbazepine 150 mg tablet 900 mg PO HS 06/16/13 09/09/23 (Trileptal) Allergies Allergy/AdvReac Type Severity Reaction Status Date / Time Sulfa (Sulfonamide AdvReac Intermediate Nausea Unverified 09/19/20 11:01 Antibiotics) PFSH All Active Problems (Updated 09/09/23 @ 10:41 by KATE Vu) Internal derangement of knee (Acute) Acute lateral meniscal injury of right knee (Acute) Effusion of knee (Acute) Fatigue (Acute) Paresthesias (Acute) Hyponatremia (Acute) Social History Smoking/Tobacco Use Status: Former Tobacco Use Smoking risk assessment performed?: Yes Alcohol Intake: current Alcohol Intake frequency: a few times a week Alcohol type: wine Drug use: Never Substance use type: does not use Do you feel safe at home: Yes Do you feel safe in your relationship?: Yes Course Vital Signs Vital signs: Vital Signs Temperature 36.6 C 09/09/23 09:40 Pulse 73 09/09/23 09:40 Respiratory Rate 18 09/09/23 09:40 Blood Pressure 160/64 H 09/09/23 09:40 Pulse Oximetry 96 09/09/23 09:40 Temperature 36.6 C 09/09/23 09:40 Temperature Source Temporal Artery Scan 09/09/23 09:40 Pulse 73 09/09/23 09:40 Respiratory Rate 18 09/09/23 09:40 Blood Pressure 160/64 H 09/09/23 09:40 Blood Pressure Position Sitting 09/09/23 09:40 Pulse Oximetry 96 09/09/23 09:40 Oxygen Delivery Method Room Air 09/09/23 09:40 Oxygen Flow Rate 0 09/09/23 09:40 Medical Decision Making 62-year-old female with knee injury to right knee while dancing felt her knee turned laterally and has had pain since last evening with difficulty ambulating, feels unstable per patient X-ray with out any laxity to the right knee, no visible sign of trauma, no large effusion visualized, no Kesling or tenderness, neurovascularly intact, x-ray with small effusion per radiology interpretation my review Suspect meniscal or LCL injury Will place in knee brace and supply walker and referred to orthopedics for likely internal derangement of knee Return precautions reviewed and patient expressed understanding discharged home in stable condition, Tylenol as needed pain Quality:SDOH Health Related Social Needs: No Data to Display Discharge Plan Disposition Patient Disposition: Home Discharge Details Clinical Impression: Effusion of knee, Acute lateral meniscal injury of right knee, Internal derangement of knee Primary Care Provider: Aria Thompson ED Provider: Nelly Bennett Home Meds and New Rx's Prescriptions: Continued oxcarbazepine [Trileptal] 150 MG tablet 900 mg PO HS Discharge Instructions Instructions: Swollen Knee Joint (ED) Additional Instructions: May purchase diclofenac gel [id number] and apply this as prescribed You may take Tylenol 650 every 4 hours, do not exceed 3 g of Tylenol daily Weightbearing as tolerated Orthopedics will likely call you for follow-up, if you do not hear from them in the next 48 hours I recommend calling to schedule your appointment Return earlier should you have new or worsening complaints Referrals: Cuate Lawson MD [ [facility]] - Discharge Data Discharge Date/Time-TO BE ENTERED AT DEPARTURE: 09/09/23 10:50
--- NOTE | 2023-09-09 10:27 | DI.VRAD_ITS ---
PROCEDURE INFORMATION: Exam: XR Right Knee Exam date and time: 09/09/2023 10:07 AM Age: 62 years old Clinical indication: Other: Knee pain, right lateral TECHNIQUE: Imaging protocol: Radiologic exam of the right knee. Views: 3 views. COMPARISON: CR XR foot RT complete 02/28/2019 11:04 AM FINDINGS: Bones/joints: No fracture or dislocation. Tiny tricompartmental osteophytes. Small joint effusion. Soft tissues: Normal. IMPRESSION: 1. No acute osseous findings. 2. Mild tricompartmental osteoarthritis and small joint effusion. Dictated and Authenticated by: Francie Aranda MD. Ordering:DONAL Villegas MD
== END 2023-09-09 10:50 | disposition home or self-care (01) ==
PROVIDERS: Emergency Provider Physician Assistant; PCP Family Medicine
DX: M25.461 Effusion, right knee (principal); M23.361 Other meniscus derangements, other lateral meniscus, right knee; Z87.891 Personal history of nicotine dependence
CPT/HCPCS: 73562; 99283

== ENCOUNTER 2023-09-18 03:31 | Outpatient (RCR) | payer BC, SELFPAY ==
[2023-07-27 00:01] VITALS: BP 136/84; PULSE 68; RESP 16; TEMP 36.5
[2023-09-18] VITALS (7 sets, daily range): BP systolic 132–157; BP diastolic 73–95; PULSE 56–74; RESP 16–18; TEMP 36.7–37.1; O2SAT 97–100
--- OUTSIDE RECORDS SUMMARY | 2023-09-18 03:33 | XMS_ITS | CCD ---
Author Name Unknown Address [address] [place] [address] [phone] Organization Unknown Address [address] [place] [address] [phone] Care Team Providers Care Assistant Controller Name Role Phone RAEANN SNOWDEN Attending Physician [phone] Vital Signs Unknown or Not Available. Allergies Allergy Code Allergy Type Reaction Status SULFA (sulfonamide) 0 Drug allergy Act jacquie Procedures Unknown or Not Available. History of Immunizations Unknown or Not Available. Problems Unknown or Not Available. Results Unknown or Not Available. Active Medications Medication Code Dose Units Frequency Route Modificatio n Start Date/Time Trileptal 300MG Oral Tablet 636901 300 MILLIGRAMS THREE TIMES A DAY ORAL 10/03/2014 07:54 Prescription Detail TAKE 300 MILLIGRAMS ORAL THREE TIMES A D AY Medications Administered During Visit Unknown or Not Available. Encounters Encounter Diagnosis Diagnosis Code Start Date Mass of trunk [id number] 11/17/2022 Social History Smoking Status Code Start Date End Date Former smoker [id number] Patient Decision Aids Unknown or Not Available. Discharge Instructions You were admitted to [facility] on 11/17/2022 12:35 with a principal diagnosis of Localized swelling, mass and lump, trunk You were discharged from [facility] on 11/17/2022 12:35 Should you have [...]
--- OUTSIDE RECORDS SUMMARY | 2023-09-18 03:33 | XMS_ITS | CCD ---
Author Name Unknown Address [address] [place] [address] [phone] Organization Unknown Address [address] [place] [address] [phone] Care Team Providers Care Health Safety Manager Name Role Phone RAEANN SNOWDEN Attending Physician [phone] Vital Signs Unknown or Not Available. Allergies Allergy Code Allergy Type Reaction Status SULFA (sulfonamide) 0 Drug allergy Act jacquie Procedures Unknown or Not Available. History of Immunizations Unknown or Not Available. Problems Unknown or Not Available. Results ECW URINE CULTURE* - Collect Date/Time: 01/31/2022 10:23 Test Name Code Test Result Test Units Test Ref Rang e COLLECTION MODE: 70260-9 NOT STATED N/A Active Medications Medication Code Dose Units Frequency Route Modificatio n Start Date/Time Trileptal 300MG Oral Tablet 128803 300 MILLIGRAMS THREE TIMES A DAY ORAL 10/03/2014 07:54 Prescription Detail TAKE 300 MILLIGRAMS ORAL THREE TIMES A D AY Medications Administered During Visit Unknown or Not Available. Encounters Encounter Diagnosis Diagnosis Code Start Date Abdominal pain [id number] 01/31/2022 Social History Smoking Status Code Start Date End Date Former smoker [id number] Patient Decision Aids Unknown or Not Available. Discharge Instructions You were admitted to [facility] on 01/31/2022 17:08 with a principal diagnosis of Unspecified abdominal pain You had the following tests done:ECW URINE CULTURE* You were discharged from [facility] on 01/31/2022 17:08 Should you have any [...]
--- OUTSIDE RECORDS SUMMARY | 2023-09-18 03:33 | XMS_ITS | CCD ---
Author Name Unknown Address [address] [place] [address] [phone] Organization Unknown Address [address] [place] [address] [phone] Care Team Providers Care Jewelry Department Supervisor Name Role Phone RAEANN SNOWDEN Attending Physician [phone] Vital Signs Unknown or Not Available. Allergies Allergy Code Allergy Type Reaction Status SULFA (sulfonamide) 0 Drug allergy Act jacquie Procedures Unknown or Not Available. History of Immunizations Unknown or Not Available. Problems Unknown or Not Available. Results Unknown or Not Available. Active Medications Medication Code Dose Units Frequency Route Modificatio n Start Date/Time Trileptal 300MG Oral Tablet 584703 300 MILLIGRAMS THREE TIMES A DAY ORAL 10/03/2014 07:54 Prescription Detail TAKE 300 MILLIGRAMS ORAL THREE TIMES A D AY Medications Administered During Visit Unknown or Not Available. Encounters Encounter Diagnosis Diagnosis Code Start Date Encounter for screening mamm ogram for malignant neoplasm of breast Z1231 07/11/2023 Social History Smoking Status Code Start Date End Date Former smoker [id number] Patient Decision Aids Unknown or Not Available. Discharge Instructions You were admitted to [facility] on 07/11/2023 09:56 with a principal diagnosis of Encounter for screening mammogram for malignant neoplasm of breast You were discharged from [facility] on 07/11/2023 09:56 Should you have [...]
[2023-09-18] MEDS: Loratidine 10 MG TAB PO (09:46)
[2023-09-18] MEDS: Acetaminophen 325 MG TAB 650 MG PO (09:46)
[2023-09-18] MEDS: Normal Saline Flush 10 ML SYR IVP (09:46)
[2023-09-18] MEDS: Hydrocortisone SOD SUC. 100 MG VIAL IVP (09:56)
[2023-09-18] MEDS: inFLIXimab 300 MG in Normal Saline 250 ML 125 MG IVPB (10:26)
== END 2023-09-26 23:59 | disposition home or self-care (01) ==
LOC: INF 03:31
PROVIDERS: PCP Family Medicine; Visit Provider Family Medicine
DX: K51.90 Ulcerative colitis, unspecified, without complications (principal)
CPT/HCPCS: 96365; 96366; 96374; 96375; 96413; 96415; J1720; J1745

== ENCOUNTER → 2023-10-02 01:29 | Outpatient (CLI) | payer BC, SELFPAY ==
--- OUTSIDE RECORDS SUMMARY | 2023-10-02 01:36 | XMS_ITS | CCD ---
Author Name Unknown Address [address] [place] [address] [phone] Organization Unknown Address [address] [place] [address] [phone] Care Team Providers Care Vasc Tech Name Role Phone RAEANN SNOWDEN Attending Physician [phone] Vital Signs Unknown or Not Available. Allergies Allergy Code Allergy Type Reaction Status SULFA (sulfonamide) 0 Drug allergy Act jacquie Procedures Unknown or Not Available. History of Immunizations Unknown or Not Available. Problems Unknown or Not Available. Results Unknown or Not Available. Active Medications Medication Code Dose Units Frequency Route Modificatio n Start Date/Time Trileptal 300MG Oral Tablet 860859 300 MILLIGRAMS THREE TIMES A DAY ORAL 10/03/2014 07:54 Prescription Detail TAKE 300 MILLIGRAMS ORAL THREE TIMES A D AY Medications Administered During Visit Unknown or Not Available. Encounters Encounter Diagnosis Diagnosis Code Start Date Mass of trunk [id number] 11/17/2022 Social History Smoking Status Code Start Date End Date Former smoker [id number] Patient Decision Aids Unknown or Not Available. Discharge Instructions You were admitted to [facility] on 11/17/2022 12:35 with a principal diagnosis of Localized swelling, mass and lump, trunk You were discharged from [facility] on 11/17/2022 12:35 Should you [...]
--- OUTSIDE RECORDS SUMMARY | 2023-10-02 01:36 | XMS_ITS | CCD ---
Author Name Unknown Address [address] [place] [address] [phone] Organization Unknown Address [address] [place] [address] [phone] Care Team Providers Care Law [employer] Partner Name Role Phone RAEANN SNOWDEN Attending Physician [phone] Vital Signs Unknown or Not Available. Allergies Allergy Code Allergy Type Reaction Status SULFA (sulfonamide) 0 Drug allergy Act jacquie Procedures Unknown or Not Available. History of Immunizations Unknown or Not Available. Problems Unknown or Not Available. Results Unknown or Not Available. Active Medications Medication Code Dose Units Frequency Route Modificatio n Start Date/Time Trileptal 300MG Oral Tablet [id number] 300 MILLIGRAMS THREE TIMES A DAY ORAL 10/03/2014 07:54 Prescription Detail TAKE 300 MILLIGRAMS ORAL THREE TIMES A D AY Medications Administered During Visit Unknown or Not Available. Encounters Encounter Diagnosis Diagnosis Code Start Date Encounter for screening mamm ogram for malignant neoplasm of breast [id number] 07/11/2023 Social History Smoking Status Code Start Date End Date Former smoker [id number] Patient Decision Aids Unknown or Not Available. Discharge Instructions You were admitted to [facility] on 07/11/2023 09:56 with a principal diagnosis of Encounter for screening mammogram for malignant neoplasm of breast You were discharged from [facility] on 07/11/2023 09:56 Should you have [...]
--- NOTE | 2023-10-02 07:45 | DI.MRI_ITS ---
Exam(s) MR LOWER JOINT RT WO EXAM: MR LOWER JOINT RT WO CLINICAL HISTORY: ? MENISCAL TEAR,internal derangement rt knee, m23.90,s83.8x1a. TECHNIQUE: Multiplanar multisequence MRI was performed. COMPARISON: CR,XR XR KNEE RT 3V AP,LAT,AMINA from 09/09/2023 FINDINGS: BONES: Contusion posterior aspect of lateral tibial plateau. Minimal edema posterior aspect of the m edial tibial plateau. JOINTS: A small joint effusion is present. Articular cartilage: Patellofemoral joint: Articular cartilage is unremarkable. Medial femoral tibial joint: Articular cartilage is unremarkable. Lateral femoral tibial joint: Articular cartilage is unremarkable. TENDONS: Extensor mechanism: Unremarkable. Medial retinaculum: Unremarkable. Lateral retinaculum: Unremarkable. Popliteus: Unremarkable. MUSCLES: Unremarkable. MENISCI: The medial meniscus is unremarkable. The lateral meniscus is unremarkable. SOFT TISSUES: Small popliteal cyst. LIGAMENTS: Anterior Cruciate: Fibers are indistinct consistent with full-thickness tear. Posterior Cruciate: Unremarkable. Medial Collateral:Unremarkable. Lateral Collateral: Unremarkable. IMPRESSION: Full-thickness ACL tear. Contusions of the posterior aspects of the tibial plateaus, lateral greater than medial. DATA REPOSITORY:
== END ==
PROVIDERS: PCP Family Medicine; Visit Provider Student in an Organized Health Care Education/Training Program
DX: S83.511A Sprain of anterior cruciate ligament of right knee, initial encounter; S80.11XA Contusion of right lower leg, initial encounter; X58.XXXA Exposure to other specified factors, initial encounter
CPT/HCPCS: 73721

== ENCOUNTER 2023-11-28 05:04 | Outpatient (CLI) | payer MEDICARE, SELFPAY ==
[2023-11-28 12:57] LABS: ALT 108 U/L (14-59); AST 53 U/L (15-37); Albumin 3.9 g/dL (3.4-5.0); Alkaline Phosphatase 89 U/L (46-116); Bilirubin, Direct 0.1 mg/dL (0.0-0.2); Bilirubin, Total 0.5 mg/dL (0.2-1.0); Total Protein 6.9 g/dL (6.4-8.2)
[2023-11-28 13:51] LABS: Vitamin B12 1559 pg/mL (193-986)
[2023-12-06 00:40] LABS: Infliximab 4.6 mcg/mL (<=5.0)
[2023-12-07 15:30] LABS: Infliximab Ab <20.0 U/mL (<50.0)
== END 2023-11-28 05:05 | disposition home or self-care (01) ==
LOC: LBO 05:04
PROVIDERS: Family Medicine; PCP Family Medicine; Visit Provider Internal Medicine
DX: R74.8 Abnormal levels of other serum enzymes (principal); K51.019 Ulcerative (chronic) pancolitis with unspecified complications
CPT/HCPCS: 36415; 80076; 82397; 82607

== ENCOUNTER 2023-11-29 04:44 | Outpatient (RCR) | payer MEDICARE, OTHER, SELFPAY ==
[2023-09-27 00:14] VITALS: BP 136/84; PULSE 68; RESP 16; TEMP 36.5
[2023-11-29] VITALS (7 sets, daily range): BP systolic 120–139; BP diastolic 73–84; PULSE 55–64; RESP 16–17; TEMP 36.4–36.7; O2SAT 97–98
[2023-11-29] MEDS: Acetaminophen 325 MG TAB 650 MG PO (09:49)
[2023-11-29] MEDS: Loratidine 10 MG TAB PO (09:49)
[2023-11-29] MEDS: Normal Saline Flush 10 ML SYR IVP (09:49)
[2023-11-29] MEDS: Hydrocortisone SOD SUC. 100 MG VIAL IVP (09:58)
[2023-11-29] MEDS: inFLIXimab 300 MG in Normal Saline 250 ML 125 MG IVPB (10:10)
[2023-11-29 10:25] LABS: HCT 35.2 % (36.0-46.0); HGB 12.3 g/dL (11.2-15.7); MCH 31.5 pg (27.0-33.0); MCHC 34.9 % (32.0-36.0); MCV 90 fL (80-95); MPV 9.2 fL (8.0-11.0); Platelet Count 338 10^3/uL (130-400); RDW 12.6 % (11.7-14.6); RDW-SD 42.1 fL; WBC 3.53 10^3/uL (4.4-10.8)
[2023-11-29 10:38] LABS: C-Reactive Protein < 0.50 mg/dL (<or=0.5)
== END 2023-12-25 23:59 | disposition home or self-care (01) ==
LOC: INF 04:44
PROVIDERS: Internal Medicine Gastroenterology; PCP Family Medicine; Visit Provider Family Medicine
DX: K51.90 Ulcerative colitis, unspecified, without complications (principal); Z51.81 Encounter for therapeutic drug level monitoring
CPT/HCPCS: 36415; 85027; 96365; 96366; 96374; 86140; J1720; J1745

== ENCOUNTER 2024-01-24 03:52 | Outpatient (RCR) | payer MEDICARE, OTHER, SELFPAY ==
[2023-12-26 00:01] VITALS: BP 136/84; PULSE 68; RESP 16; TEMP 36.5
[2024-01-24] VITALS (7 sets, daily range): BP systolic 136–168; BP diastolic 78–93; PULSE 52–73; RESP 16–18; TEMP 36.1–36.8; O2SAT 97–99
[2024-01-24] MEDS: Acetaminophen 325 MG TAB 650 MG PO (09:58)
[2024-01-24] MEDS: Loratidine 10 MG TAB PO (09:58)
[2024-01-24] MEDS: Hydrocortisone SOD SUC. 100 MG VIAL IVP (09:58)
[2024-01-24] MEDS: Normal Saline Flush 10 ML SYR IVP (09:58)
[2024-01-24] MEDS: inFLIXimab 300 MG in Normal Saline 250 ML 125 MG IVPB (10:43)
== END 2024-01-25 23:59 | disposition home or self-care (01) ==
LOC: INF 03:52
PROVIDERS: PCP Family Medicine; Visit Provider Family Medicine
DX: K51.90 Ulcerative colitis, unspecified, without complications (principal)
CPT/HCPCS: 96365; 96366; 96374; 96375; J1720; J1745

== ENCOUNTER 2024-03-19 02:00 | Outpatient (RCR) | payer MEDICARE, OTHER, SELFPAY ==
[2024-01-26 00:03] VITALS: BP 136/84; PULSE 68; RESP 16; TEMP 36.5
[2024-03-19] VITALS (7 sets, daily range): BP systolic 119–127; BP diastolic 74–79; PULSE 58–64; RESP 17–18; TEMP 36.6–37; O2SAT 96–98
--- OUTSIDE RECORDS SUMMARY | 2024-03-19 02:01 | XMS_ITS | Continuity of Care Document ---
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 Name Role Phone RAEANN THOMPSON MD Primary Care Physician Encounter [facility] NBR [id number] Date(s): 01/04/24 - 01/04/24 [facility] Ambulatory Clinics [address] [place] [address], [place] [address] Encounter Diagnosis Intractable epilepsy without status epilepticus(Discharge Diagnosis) - 01/04/24 Long-term current use of anticonvulsant(Discharge Diagnosis) - 01/04/24 Discharge Disposition: Home or Self Care Attending Physician: TASIA Vogel- Allergies, Adverse Reactions, Alerts Substance Reaction Severity Status codeine-guaifenesin Wheal Severe Active sulfa drugs Hives Severe Active lamoTRIgine Anaphylaxis Unknown Active Entyvio 1 Skin Moderate Active 1hives/oral lesions(? meds or relation to IBD/other source) Assessment and Plan Extracted from: Title:Office Visit Note Author:ANTONIO Vogel CNP- Date:01/04/24 1.??Intractable epilepsy wit hout status epilepticus??G40.919 ??The patient's epilepsy has been stable, with no recent seizures except for one instance due to lack of sleep, a known trigger. She is currently on Trileptal 300mg, 3.5 tablets twice a day, and tolerates it well. ?? - Continue Trileptal at the current dose. ?? - Encourage the patient to maintain good sleep hygiene to minimize seizure triggers. ?? -[place] [facility] [place] due to her detention use of AED ?? - Refill Trileptal prescription 90 days w/ 3 refills ? Ordered: Comprehensive Metabolic Panel, Blood, Routine, *Est. 01/05/24 +/- 60 days, Once, Lab Collect, Long-term current use of anticonvulsant Intractable epilepsy without status epilepticus, Order for future visit ?? Long-term current use of anticonvulsant??Z79.899 Ordered: Comprehensive Metabolic Panel, Blood, Routine, *Est. 01/05/24 +/- 60 days, Once, Lab Collect, Long-term current use of anticonvulsant Intractable epilepsy without status epilepticus, Order for future visit ?? Risks, Benefits , alternatives and complications discussed with the patient. All questions were answered to patient satisfaction at time of visit. ?? I personally spent a total of??60??minutes??providing direct??care for this patient on the date of the encounter. ?? Time included??Preparing to see the patient (e.g., review of tests), Performing medically necessary appropriate exam and/or evaluation, Counseling and educating the patient/family/caregiver, Ordering medications, tests, or procedures, Referring and communicating information in the EHR or other health records, Independently interpreting results and communicating results to patient/family/caregiver ? Future Appointments Future Scheduled Tests Laboratory* Comprehensive Metabolic Panel 01/05/24 Functional Status 01/04/24 Recent Travel History No recent travel Medications Albuterol (Eqv-ProAir HFA) 90 mcg/inh inhalation aerosol 8 g, 0 Refill(s), INHALE TWO PUFFS BY MOUTH EVERY 4 TO 6 HOURS NEEDED FOR COUGHING FITS, WHEEZING, SHORTNESS OF BREATH, 0 Refill(s) Start Date: 10/30/23 Status: Ordered Remicade 100 mg intravenous injection 3 mg/kg =, IV, Once, 0 Refill(s) Start Date: 10/23/22 Status: Ordered Trileptal 300 mg oral tablet 1,050 mg = 3.5 tab, Oral, Daily, # 315 tab, 3 Refill(s), RUBÉN, Pharmacy: [facility], 157.48, cm, 01/04/24 12:55:00 EDT, Height, 148.8, kg, 01/04/24 13:06:00 EDT, Weight Dosing Start Date: 01/04/24 Stop Date: 12/29/24 Status: Ordered Problem List Condition Confirmation Course Effective Dates Status H ealth Status Informant Chronic pancolonic ulcerative colitis Confirmed Active Benign thyroid cyst Confirmed Active Nonintractable epilepsy without status epilepticus Confirmed Active Skin rash Confirmed Active H/O toxic multinodular goiter Confirmed Active Hyponatremia Confirmed Active Intractable epilepsy without status epilepticus Confirmed Active Right ACL tear Confirmed Active Seizure disorder Confirmed Active Ulcerative colitis without complications Confirmed Active Ulcerative pancolitis with rectal bleeding Confirmed Active Procedures Procedure Date Related Diagnosis Body Site Status Sigmoidoscopy Flexible 1 08/03/22 Completed Sigmoidoscopy, flexible; wit h biopsy, single or multiple 08/02/22 Completed section 2 Comple latisha Colonoscopy 3 Completed Laparoscopy of female pelvis 4 Completed 1auto-populated from documented surgical case [id number] 3Dr. jd 09/08/2019, and 07/2021 Dr. Mir. 4for endometrosis Vital Signs Most recent to oldest [Reference Range]: 1 Apical Heart Rate [60-100 bpm] 76 bpm (01/04/24 12:55 PM) Blood Pressure [90-140/60-90 mmHg] 118/7 0mmHg (01/04/24 12:55 PM) Mean Arterial Pressure, Cuff [65-140 mmH g] 86 mmHg (01/04/24 12:55 PM) Weight 148.8 kg (01/04/24 12:55 PM) Weight Measured (lbs) 328.047 lb (01/04/24 12:55 PM) Weight Dosing 148.800 kg (01/04/24 12:55 PM) Kerby Body Weight Calculated 50.1 kg (01/04/24 12:55 PM) Height 157.48 cm (01/04/24 12:55 PM) Height/Length Measured (inches) 62 inch (01/04/24 12:55 PM) BSA Measured 2.55 m2 (01/04/24 12:55 PM) Body Mass Index 60 kg/m2 (01/04/24 12:55 PM) Social History Social History Type Response Tobacco Former tobacco user Tobacco Use:. Sex Physician Outpatient Note * JUAN Vogel: PERFORM Event Display: Office Clinic Note Physician Authored Date: [id number] SKYLA LONDONO :1960 Age:63 years Sex:Female Visit Date:01/04/2024 Primary Care Physician: RAEANN THOMPSON MD Chief Complaint 1 yr f/u epilepsy transfer of care History of Present Illness Ms.??Tai??is a 63-year-old female who reports today??for follow-up??evaluation of her epilepsy.?? She was last seen by Dr. Almanza on October 23, 2022??with her last visit prior to that on September 28, 2021.?? It was noted she had been doing quite well??up until August 2021 when she had been in [place] for a conference??and??there was some concerns that she may have had a blackout for a few seconds.?? Was felt this could be related to a minor complex partial seizure??she apparently went??back to her room and slept??that day. ??There is no evidence of any grand mal seizures??and since that time she has been doing??well.?? It was noted that??stress from work was felt to be activating her ulcerative colitis at that time??with follow-ups to Dr. Mir??and did not[facility] [facility] [place]?? At that time??she had been tried on an??Entyvio??but could not tolerate it.?? She was then placed on Remicade for ulcerative colitis and lost about 25 pounds. The patient takes Trileptal??300 mg??taking??3-1/2 tablets twice a day. ? Ms. Londono discusses concerns about potential liver issues linked to Remicade, as indicated by elevated liver enzymes (ALT and AST) and is scheduled for an MRI to assess her liver further. She expresses a proactive approach to her health, considering seeking additional opinions regarding her liver health. She believes it was high doses of Remicade that had a negative effect on her Liver. ?? She notes dietary triggers for her colitis, such as sugar and alcohol, and emphasizes the importance of maintaining a balanced diet with natural sugars, proteins, and vegetables while avoiding tomatoes. ?? Ms. Londono mentions a recent ACL tear from dancing, indicating an active lifestyle despite her medical conditions. ?? She denies any recent seizures or seizure like spells. She takes her medication regularly and reports tolerating it well. She has some low sodium due to her Trileptal but reports recent labs were stable?? for this. Labs were [place] [facility] [place] ? Review of Systems The patient denies any additional neurologic, psychiatric, head, ears, eyes, nose, throat, pulmonary, cardiovascular, gastrointestinal, musculoskeletal, skin, endocrine, renal, immunological, allergic, lymphoid, rheumatologic??and hematological symptoms other than those noted above. Physical Exam Vitals & Measurements HR:??76??(Apical)?? BP:??118/70?? SpO2:??99%?? HT:??157.48??cm?? WT:??148.8??kg?? BMI:??60?? BSA:??2.55?? General: ??Awake, Alert, and oriented, No acute distress, Overweight? HEENT: Head: ??Normocephalic and atraumatic, Hair of average texture and distribution ?? Eyes: Conjunctivae are clear without exudates or hemorrhage. Non-icteric sclera. EOM intact, PERRLA. Eyelids??are?? nml in appearance without swelling or lesions.?? No, Visual field defect _ ?? Chest/Respiratory: No signs of respiratory distress ?? Neurological:?? Awake, alert and orientedx 4, nml speech. Sensation intact bilaterally. Reflexes 2+ bilaterally.??CN II-IIV??are intact. Cerebellar function is intact. Memory is normal and thought process is intact.No gait abnormalities are appreciated.??Motor strength 5/5 throughout ?? Psychiatric: Appropriate mood and affect. Good judgement and insight. ?? Skin: Skin in warm, dry and intact overall, has??some cracked??dry skin??to her??right thumb,??without rashes or lesions. Appropriate color for ethnicity. Nailbeds pink with no cyanosis or clubbing. Medical Decision Making: Review of previous notes 09/28/2021- Dr. Almanza ?? 1. Nonintractable epilepsy without status epilepticus, unspecified epilepsy type - G40.909 (Primary) ?? 2. Hyponatremia - E87.1, due to trileptal ?? 3. Ulcerative colitis without complications, unspecified location - K51.90 ?? ASSESSMENT AND MEDICAL DECISION MAKING: Appreciate Dr. Thompson's kind referral. She was diagnosed with epilepsy when she was in her 40s. Apparently she was having what sounds likecomplex partial seizures she was seen [place] [facility] [place] I looked up [facility] [place] and unfortunately could not find any records pertaining to her seizures. Then she was doing okay until 2017 when she had a fall at work and had some injuries. Apparently the seizures got worse. This was a work-related injury. She was then being followed by , neurologist at [facility] until about 2018. She is also seeing Dr. Burgos at [facility]. She has had some issues with hyponatremia. She has not had any seizures in a long time. She can NOT tolerate the generic oxcarbazepine. she needs to have BRAND NAME TRILEPTAL I reviewed labs done at [facility] when she saw Dr. Mir in gastroenterology. Labs [id number] show's unremarkable blood counts and comprehensive metabolic panel sodium was slightly low at 131 PLAN: 1. Continue Trileptal 300 mg--3-1/2 tablets daily. I sent the prescription for this. With 6 refills. She only takes the BRAND NAME TRILEPTAL 2. We will try to get the records from [facility] and from [facility] 3. Seizure precautions 4. Long discussion about epilepsy and answered all questions. 5. We discussed repeating MRI of the brain and EEG but we mutually agreed to sit tight Follow-up in 1 year, sooner if any worsening or complaints. ?? Assessment/Plan 1.??Nonintractable epilepsy without status epilepticus??G40.909 ?October 23, 2022 ?? This very pleasant lady comes for follow-up evaluation of her epilepsy.?? I had seen her for the first time on September 28, 2021.?? 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 It is possible that she may have blacked out for few seconds.?? This may have been a minor complex partial seizure.?? She went and slept that day.?? She did not have a grand mal seizure.?? She has been doing quite well. ?? Unfortunately looks like the stress of the work was activating her ulcerative colitis.?? She was here in July [address] Mir.?? She was then [place] [facility] [place].?? She was tried on Entyvio??but she could not tolerate it. ??She is currently on Remicade??for her ulcerative colitis.?? She had lost about 25 pounds. ?? I did not see any evidence of hyponatremia.?? Her labs done at [facility] in July 2022 showed??sodium of 130.?? She was anemic and had a low albumin but that is getting better??with the treatment at [facility] [place]. ?PLAN: September ?? Continue Trileptal--brand-name--300 mg--3-1/2 tablets??twice a day. ?? Follow-up in 1 year ?? 2.??H/O toxic multinodular goiter??Z86.39 ?? 3.??Ulcerative pancolitis with rectal bleeding??K51.011 Assessment/Plan 1.??Intractable epilepsy without status epilepticus??G40.919 ??The patient's epilepsy has been stable, with no recent seizures except for one instance due to lack of sleep, a known trigger. She is currently on Trileptal 300mg, 3.5 tablets twice a day, and tolerates it well. ?? - Continue Trileptal at the current dose. ?? - Encourage the patient to maintain good sleep hygiene to minimize seizure triggers. ?? -will obtain most recent labs [place] [facility] [place] due to her intermediate frame tender use of AED ?? - Refill Trileptal prescription 90 days w/ 3 refills Ordered: Comprehensive Metabolic Panel, Blood, Routine, *Est. 01/05/24 +/- 60 days, Once, Lab Collect, Long-term current use of anticonvulsant Intractable epilepsy without status epilepticus, Order for future visit ?? Long-term current use of anticonvulsant??Z79.899 Ordered: Comprehensive Metabolic Panel, Blood, Routine, *Est. 01/05/24 +/- 60 days, Once, Lab Collect, Long-term current use of anticonvulsant Intractable epilepsy without status epilepticus, Order for future visit ?? Risks, Benefits , alternatives and complications discussed with the patient. All questions were answered to patient satisfaction at time of visit. I personally spent a total of??60??minutes??providing direct??care for this patient on the date of the encounter. Time included??Preparing to see the patient (e.g., review of tests), Performing medically necessaryappropriate exam and/or evaluation, Counseling and educating the patient/family/caregiver, Orderingmedications, tests, or procedures, Referring and communicating information in the EHR or other health records, Independently interpreting results and communicating results to patient/family/caregiver Patient Instructions Dear Tai, ?? Thank you for visiting us today. We appreciate your commitment to managing your health and are pleased to hear about your progress in controlling your epilepsy and addressing your ulcerative colitis. ?? Here is a summary of the castro instructions and updates from today's consultation: ?? - Medication Management: ?? - Continue taking Trileptal 300 mg, three and a half tablets twice a day. ?? - Remain on Remicade 50 mg every two months for ulcerative colitis. Monitor for any side effectsand discuss any concerns with your healthcare provider. ?? - Laboratory Tests and Examinations: ?? - Scheduled MRI on January 18, 2024, to assess liver condition. ?? - Repeat lab work to check liver enzymes (ALT and AST) during the MRI appointment. ?? - Continue monitoring sodium levels and kidney function. ?? - Lifestyle Recommendations: ?? - Ensure adequate sleep to avoid triggering seizures. ?? - Avoid high-stress situations as much as possible to manage ulcerative colitis. ?? - Dietary advice: Limit intake of sugar and alcohol. Focus on a balanced diet including proteins, vegetables, and potatoes. Avoid tomatoes as they are a known trigger for your colitis. ?? - Follow-Up Appointments: ?? - Please ensure to attend your MRI appointment and any subsequent follow-ups as recommended by your healthcare provider. ?? - General Health Monitoring: ?? - Keep track of any symptoms such as right upper quadrant pain or changes in urine color. ?? - Continue regular exercise as your physical condition allows. ?? - Additional Notes: ?? - You are encouraged to seek a second opinion or consult a specialist if you have concerns abouthepatitis or other potential complications from medications. ?? - No changes to your current epilepsy medication (Trileptal) as it is managing your condition effectively. ?? - Refills for Trileptal will be processed at your usual pharmacy under Medicaid. ?? Please feel free to reach out if you have any further questions or need clarification on any of thepoints discussed today. We are here to support you in maintaining and improving your health. ?? Best regards, ?? Kendrick Kessler APRN Problem List/Past Medical History Ongoing Benign thyroid cyst Chronic pancolonic ulcerative colitis H/O toxic multinodular goiter Hyponatremia Intractable epilepsy without status epilepticus Morbid obesity Nonintractable epilepsy without status epilepticus Right ACL tear Seizure disorder Skin rash Ulcerative colitis without complications Ulcerative pancolitis with rectal bleeding Historical No qualifying data Procedure/Surgical History ???Sigmoidoscopy Flexible (08/03/2022)???Sigmoidoscopy, flexible; with biopsy, single or multiple (08/03/2022)??? section???Colonoscopy???Laparoscopy of female pelvis Medications Albuterol (Eqv-ProAir HFA) 90 mcg/inh inhalation aerosol Remicade 100 mg intravenous injection, 3 mg/kg, IV, Once Trileptal 300 mg oral tablet, 1050 mg= 3.5 tab, Oral, Daily, 3 refills Allergies codeine-guaifenesin??(Wheal) sulfa drugs??(Hives) Entyvio??(Skin) lamoTRIgine??(Anaphylaxis) Social History Alcohol Past Electronic Cigarette/Vaping Electronic Cigarette Use: Never. Employment/School Retired Substance Use Never Tobacco Former tobacco user Tobacco Use:. Family History Cancer: Father. Family Member(s): ?? FATHER, at age: Unknown. Cause of : Family Member(s): ?? MOTHER, at age: Unknown. Cause of : Electronically Signed on 01/04/24 02:03 PM JUAN Vogel Outpatient Summary note * JUAN Vogel: PERFORM Event Display: Ambulatory Patient Summary Authored Date: [id number] TRUDI LONDONOALVIN Alberto :1960 Age:63 years Sex:Female Visit Date:01/04/2024 Primary Care Physician: RAEANN THOMPSON MD Ambulatory Visit Instructions We would like to thank you for allowing us to assist you with your healthcare needs. The following includes patient education materials and information regarding your injury/illness. Your Next Steps Instructions From Your Care Team Dear Tai, ?? Thank you for visiting us today. We appreciate your commitment to managing your health and are pleased to hear about your progress in controlling your epilepsy and addressing your ulcerative colitis. ?? Here is a summary of the castro instructions and updates from today's consultation: ?? - Medication Management: ?? - Continue taking Trileptal 300 mg, three and a half tablets twice a day. ?? - Remain on Remicade 50 mg every two months for ulcerative colitis. Monitor for any side effectsand discuss any concerns with your healthcare provider. ?? - Laboratory Tests and Examinations: ?? - Scheduled MRI on January 18, 2024, to assess liver condition. ?? - Repeat lab work to check liver enzymes (ALT and AST) during the MRI appointment. ?? - Continue monitoring sodium levels and kidney function. ?? - Lifestyle Recommendations: ?? - Ensure adequate sleep to avoid triggering seizures. ?? - Avoid high-stress situations as much as possible to manage ulcerative colitis. ?? - Dietary advice: Limit intake of sugar and alcohol. Focus on a balanced diet including proteins, vegetables, and potatoes. Avoid tomatoes as they are a known trigger for your colitis. ?? - Follow-Up Appointments: ?? - Please ensure to attend your MRI appointment and any subsequent follow-ups as recommended by your healthcare provider. ?? - General Health Monitoring: ?? - Keep track of any symptoms such as right upper quadrant pain or changes in urine color. ?? - Continue regular exercise as your physical condition allows. ?? - Additional Notes: ?? - You are encouraged to seek a second opinion or consult a specialist if you have concerns abouthepatitis or other potential complications from medications. ?? - No changes to your current epilepsy medication (Trileptal) as it is managing your condition effectively. ?? - Refills for Trileptal will be processed at your usual pharmacy under Medicaid. ?? Please feel free to reach out if you have any further questions or need clarification on any of thepoints discussed today. We are here to support you in maintaining and improving your health. ?? Best regards, ?? Kendrick Kessler, PATRIC Medications What How Much When Instructions Unchanged albuterol (Albuterol (Eqv-ProAir HFA) 90 mcg/ inh inhalation aerosol) 8 g, 0 Refill(s), INHALE TWO PUFFS BY MOUTH EVERY 4 TO 6 HOURS NEEDED FOR COUGHING FITS, WHEEZING, SHORTNESS OF BREATH ?? Unchanged inFLIXimab (Remicade 100 mg intravenous injection) 3 Milligrams/kilogram Intravenous Once Duration: 8 weeks Unchanged OXcarbazepine (Trileptal 300 mg oral tablet) 3.5 tab Oral (given by mouth) Every day Duration: 90 Days Your Summary Your Diagnosis Intractable epilepsy without status epilepticus Long-term current use of anticonvulsant Problems Ongoing - Any problem that you are currently receiving treatment for. Benign thyroid cyst Chronic pancolonic ulcerative colitis H/O toxic multinodular goiter Hyponatremia Intractable epilepsy without status epilepticus Morbid obesity Nonintractable epilepsy without status epilepticus Right ACL tear Seizure disorder Skin rash Ulcerative colitis without complications Ulcerative pancolitis with rectal bleeding Your Care Team Attending Physician - JUAN Vogel Primary Care Physician - RAEANN THOMPSON MD Discharge Vitals Heart Rate??(Apical) 76 Blood Pressure?? 118/70?? SpO2?? 99% Height?? 62.00 in (157.48 cm) Weight?? 328.10 lb (148.8 kg) BMI?? 60 Allergies codeine-guaifenesin??(Wheal) sulfa drugs??(Hives) Entyvio??(Skin) lamoTRIgine??(Anaphylaxis) Electronically Signed on: 01/04/2024 13:46 EDTSigned by:APOLINAR * JUAN Vogel: PERFORM Event Display: Ambulatory Patient Summary Authored Date: [id number] SKYLA LONDONO :1960 Age:63 years Sex:Female Visit Date:01/04/2024 Primary Care Physician: RAEANN THOMPSON MD Ambulatory Visit Instructions We would like to thank you for allowing us to assist you with your healthcare needs. The following includes patient education materials and information regarding your injury/illness. Your Next Steps Instructions From Your Care Team Dear Tai, ?? Thank you for visiting us today. We appreciate your commitment to managing your health and are pleased to hear about your progress in controlling your epilepsy and addressing your ulcerative colitis. ?? Here is a summary of the castro instructions and updates from today's consultation: ?? - Medication Management: ?? - Continue taking Trileptal 300 mg, three and a half tablets twice a day. ?? - Remain on Remicade 50 mg every two months for ulcerative colitis. Monitor for any side effectsand discuss any concerns with your healthcare provider. ?? - Laboratory Tests and Examinations: ?? - Scheduled MRI on January 18, 2024, to assess liver condition. ?? - Repeat lab work to check liver enzymes (ALT and AST) during the MRI appointment. ?? - Continue monitoring sodium levels and kidney function. ?? - Lifestyle Recommendations: ?? - Ensure adequate sleep to avoid triggering seizures. ?? - Avoid high-stress situations as much as possible to manage ulcerative colitis. ?? - Dietary advice: Limit intake of sugar and alcohol. Focus on a balanced diet including proteins, vegetables, and potatoes. Avoid tomatoes as they are a known trigger for your colitis. ?? - Follow-Up Appointments: ?? - Please ensure to attend your MRI appointment and any subsequent follow-ups as recommended by your healthcare provider. ?? - General Health Monitoring: ?? - Keep track of any symptoms such as right upper quadrant pain or changes in urine color. ?? - Continue regular exercise as your physical condition allows. ?? - Additional Notes: ?? - You are encouraged to seek a second opinion or consult a specialist if you have concerns abouthepatitis or other potential complications from medications. ?? - No changes to your current epilepsy medication (Trileptal) as it is managing your condition effectively. ?? - Refills for Trileptal will be processed at your usual pharmacy under Medicaid. ?? Please feel free to reach out if you have any further questions or need clarification on any of thepoints discussed today. We are here to support you in maintaining and improving your health. ?? Best regards, ?? Kendrick Kessler APRN Medications What How Much When Instructions Unchanged albuterol (Albuterol (Eqv-ProAir HFA) 90 mcg/ inh inhalation aerosol) 8 g, 0 Refill(s), INHALE TWO PUFFS BY MOUTH EVERY 4 TO 6 HOURS NEEDED FOR COUGHING FITS, WHEEZING, SHORTNESS OF BREATH ?? Unchanged inFLIXimab (Remicade 100 mg intravenous injection) 3 Milligrams/kilogram Intravenous Once Duration: 8 weeks Unchanged OXcarbazepine (Trileptal 300 mg oral tablet) 3.5 tab Oral (given by mouth) Every day Duration: 90 Days Your Summary Your Diagnosis Intractable epilepsy without status epilepticus Long-term current use of anticonvulsant Problems Ongoing - Any problem that you are currently receiving treatment for. Benign thyroid cyst Chronic pancolonic ulcerative colitis H/O toxic multinodular goiter Hyponatremia Intractable epilepsy without status epilepticus Morbid obesity Nonintractable epilepsy without status epilepticus Right ACL tear Seizure disorder Skin rash Ulcerative colitis without complications Ulcerative pancolitis with rectal bleeding Your Care Team [facility] Primary Care Physician - RAEANN THOMPSON MD Discharge Vitals Heart Rate??(Apical) 76 Blood Pressure?? 118/70?? SpO2?? 99% Height?? 62.00 in (157.48 cm) Weight?? 328.10 lb (148.8 kg) BMI?? 60 Allergies codeine-guaifenesin??(Wheal) sulfa drugs??(Hives) Entyvio??(Skin) lamoTRIgine??(Anaphylaxis) Electronically Signed on: 01/04/2024 13:34 EDTSigned by:APOLINAR Patient Care team information Care Team Personnel Name: RAEANN THOMPSON MD Position: No Access Member Role: Primary Care Physician Address: Address: [address] [address] [address] [place], [place] [address] Name: Alina Mackenzie APRN Position: Physician Member Role: Nurse Practitioner Address: Address: [address] [place] [phone] [place] Care Team Related Persons Name: JAZMINE LONDONO Address: Home [address] [place], [place] [id number] [facility] Name: DAVID KERR
--- OUTSIDE RECORDS SUMMARY | 2024-03-19 02:02 | XMS_ITS | Encounter Summary ---
Author Organization [facility] Address [address] [place] [address] Care Team Providers Care Glass Artist Name Role Phone Aria Thompson MD Primary Care Provider Encounter Details Date Type Department Care Team (Late st Contact Info) Description 08/31/2023 Lab Requisition [facility] Pathology & Laboratory Medicine - [address] [address] Outr Resulting Lab, Provider Social History Tobacco Use Types Packs/Day Years Used Date Smoking Tobacco: Former Cigarettes 0.3 10 Smokeless Tobacco: Never Alcohol Use Standard Drinks/Week Comments Not Currently 0 (1 standard drink = 0.6 oz pur e alcohol) Interpersonal Safety Answer Date Record ed Physically Hurt Never 03/28/2020 Verbally Threaten Not on file 03/28/2020 Sex and Gender Information Value Date Recorded Sex Assigned at Not on file Gender Identity Not on file Sexual Orientation Not on file documented as of this encounter Functional Status Functional Status Response Date of Assess ment Because of a physical, menta l, or emotional condition, does this person have difficulty doing errands alone such as visiting a doctor's office or shopping? Yes 02/18/2018 Cognitive Status Response Date of Assessm ent Because of a physical, menta l, or emotional condition, does this person have serious difficulty concentrating, remembering, or making decisions? Yes 02/18/2018 documented as of this encounter Plan of Treatment Not on file documented as of this encounter Procedures Procedure Name Priority Date/Time Associated Diagnosis Comments HIV 1/2 ANTIGEN AND ANTIBODY, 4TH GENERATION Routine 08/31/2023 10:21 EST documented in this encounter Results * HIV 1/2 ANTIGEN AND ANTIBODY, 4TH GENERATION (08/31/2023 10:21 EST) HIV 1 and 2 Antibody/p24 Antigen, 4th Generation Negative Negative 08/31/2023 19:[address] [facility] Comment:If acute HIV-1 infec tion is suspected in a high risk patient, submit plasma specimen for HIV-1 RNA quantitation test. Blood VENOUS BLOOD / Unknown 08/31/2023 10:21 EST 08/31/2023 17:[address] [facility] - 08/31/2023 19:45 EST Fourth Generation assay performed on the Siemens Centaur XPT. Provider Outr Resulting Lab IMMUNOLOGY A ND SEROLOGY ORDERABLES Performing Organization Address City/State/[facility] Co de Phone Number [facility] [address] [place] [address] documented in this encounter Visit Diagnoses Not on filedocumented in this encounter Care Teams Glass Artist Relationship Specialty Start Date End Date Aria Thompson MD [address] [place] [address] PCP - General 12/03/17 documented as of this encounter
--- OUTSIDE RECORDS SUMMARY | 2024-03-19 02:02 | XMS_ITS ---
Author Organization Unknown Address [address] [place] [phone] Phone Care Team Providers Care Dog Bather Name Role Phone SP CARY Attending Unavailable Results US CHEST - Completed: 2022 13:18 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 Area corresponds to a homogeneous fatty echogenicity area measuring 1.7 x 0.5 x 2.7 cm. There is no vascularity. Findings are consistent with a simple lipoma. IMPRESSION: Palpable abnormality is consistent with a lipoma. Report Digitally Signed by Ana M Clancy on 11/17/2022 02:43 PM EDT Social History Type Status Start Date End Date Code Code Syst em Smoking History Former smoker 1455915 SNOMED CT Sex Female Medications Medication Start Date End Date Route Frequency Dose Code Code System Medication Instructions Home Meds Trileptal 300MG Oral Tablet 10/03/2014 Unknown ORAL THREE TIMES A DAY 300 MILLIGRAMS 566934 RxNorm TAKE 300 MILLIGRAMS ORAL THREE TIMES A DAY Hospital Discharge Instructions Should you have any questions prior to discharge, please contact a member of your healthcare team. If you have left the hospital and have any questions, please contact your primary care physician. Reason For Referral No Data Found Allergies and Adverse Reactions Allergy Substance Reaction Severity Start Date Concern Status Co de Code System SULFA (sulfonamide) Active Plan of Treatment MM SCREEN BILAT 07/11/2023 US EXTREMITY 11/17/2022 Encounters Encounter Diagnosis Start Date Code Code Sys tem Mass of trunk 11/17/2022 [id number] Patients Know BestOMED-CT Personal Care Team Section Performer Name Performer Role Active Date Inactive Da te
--- OUTSIDE RECORDS SUMMARY | 2024-03-19 02:02 | XMS_ITS ---
Author Organization Unknown Address [address] [place] [phone] Phone Care Team Providers Care Vp Of Product Name Role Phone SP CARY Attending Unavailable Results ECW URINE CULTURE* - Collect Date/Time: 01/31/2022 10:23 [facility] ID: [id number] [place], [place], [id number] LOINC: 630-4 Test Value Unit Reference Range Code Code System Flag COLLECTION MODE: NOT STATED 59113-0 LOINC Social History Type Status Start Date End Date Code Code Syst em Smoking History Former smoker [id number] SNOMED CT Sex Female Medications Medication Start Date End Date Route Frequency Dose Code Code System Medication Instructions Home Meds Trileptal 300MG Oral Tablet 10/03/2014 Unknown ORAL THREE TIMES A DAY 300 MILLIGRAMS 360980 RxNorm TAKE 300 MILLIGRAMS ORAL THREE TIMES [...] Diagnosis Start Date Code Code Sys tem Abdominal pain 01/31/2022 [id number] SNOMED-CT Personal Care Team Section Performer Name Performer Role Active Date Inactive Da te
--- OUTSIDE RECORDS SUMMARY | 2024-03-19 02:02 | XMS_ITS | Encounter Summary ---
Author Organization [facility] Address [address] [place] [address] Care Team Providers Care Box Person Name Role Phone Aria Thompson MD Primary Care Provider Encounter Details Date Type Department Care Team (Late st Contact Info) Description 08/31/2023 Lab Requisition [facility] Pathology & Laboratory Medicine - [address] [address] Outr Resulting Lab, Provider Social History Tobacco [...] Procedure Name Priority Date/Time Associated Diagnosis Comments SPEP, INCLUDES QUANTITATION OF MONOCLONAL SPIKE PERFORMABLE Today 08/31/2023 10:21 EST HOLD SST Today 08/31/2023 10:21 EST SPEP, INCLUDES QUANTITATION OF MONOCLONAL SPIKE Today 08/31/2023 10:21 EST PROTEIN, TOTAL Today 08/31/2023 10:21 EST IGG Today 08/31/2023 10:21 EST documented in this encounter Results * HOLD SST (08/31/2023 10:21 EST) Hold Hold 08/31/2023 18:46 EST [facility] Blood VENOUS BLOOD / Unknown 08/31/2023 10:21 EST 08/31/2023 17:44 EST Provider Outr Resulting Lab LAB INFO SER VICE AND SUPPORT & PHONE RESULT Performing Organization Address City/State/[facility] Co de Phone Number [facility] [address] [place] [phone] * SPEP, INCLUDES QUANTITATION OF MONOCLONAL SPIKE PERFORMABLE (08/31/2023 10:21 EST) Albumin % 65.9 55.8 - 66.1 % 09/03/2023 13:08 [facility] Albumin g/dL 4.2 3.6 - 5.2 g/dL 09/03/2023 13:08 [facility] Alpha-1 % 3.7 2.9 - 4.9 % 09/03/2023 13:08 [facility] Alpha-1 g/dL 0.20 0.15 - 0.40 g/dL 09/03/2023 13:08 [facility] Alpha-2 % 8.9 7.1 - 11.8 % 09/03/2023 13:08 [facility] Alpha-2 g/dL 0.60 0.50 - 1.00 g/dL 09/03/2023 13:08 [facility] Beta % 9.4 8.4 - 13.1 % 09/03/2023 13:08 [facility] Beta g/dL 0.60 0.60 - 1.20 g/dL 09/03/2023 13:08 [facility] Gamma % 12.1 11.1 - 18.8 % 09/03/2023 13:08 [facility] Gamma g/dL 0.80 0.60 - 1.60 g/dL 09/03/2023 13:08 [facility] SPEP Comment No apparent monoclonal protein seen on serum electrophoresis 09/03/2023 13:08 [facility] Comment:See scanned/suppleme ntary report. Total Protein 6.4 6.3 - 8.2 g/dL 09/03/2023 13:08 [facility] Blood VENOUS BLOOD / Unknown 08/31/2023 10:21 EST 08/31/2023 17:44 EST Provider Outr Resulting Lab CHEMISTRY & BLOOD GAS ORDERABLES Performing Organization Address [facility] Co de Phone Number [facility] [address] [place] [address] * PROTEIN, TOTAL (08/31/2023 10:21 EST) Blood VENOUS BLOOD / Unknown 08/31/2023 10:21 EST 08/31/2023 17:44 EST Provider Outr Resulting Lab CHEMISTRY & BLOOD GAS ORDERABLES Performing Organization Address [facility] Co de Phone Number [facility] [address] [place] [address] * IGG (08/31/2023 10:21 EST) IgG [id number] 610 - 1,616 mg/dL 09/03/2023 8:49 EST [facility] Blood VENOUS BLOOD / Unknown 08/31/2023 10:21 EST 08/31/2023 17:44 EST Provider Outr Resulting Lab CHEMISTRY & BLOOD GAS ORDERABLES Performing Organization Address [facility]/ZIP Co de Phone Number [facility] [address] [place] [address] documented in this encounter Visit Diagnoses Not on filedocumented in this encounter Care Teams Box Person Relationship Specialty Start Date End Date Aria Thompson MD [address] [place] [address] PCP - General 12/03/17 documented as of this encounter
--- OUTSIDE RECORDS SUMMARY | 2024-03-19 02:02 | XMS_ITS | Clinical Summary ---
Author Organization [facility] Address [address] [place] [address] Care Team Providers Care Wireless Team Member Name Role Phone Aria Thompson MD Primary Care Provider Allergies Active Allergy Reactions Criticality Noted Date Comments Sulfa (Sulfonamide Antibiotics) Hives 04/2018 Medications Medication Sig Dispensed Refills Start Date End Date Status cholecalciferol, vitamin D3, (VITAMIN D3 ORAL) Take 2,000 Tabs by mouth daily. Active OXcarbazepine (TRILEPTAL) 300 mg tablet Take one tablet by mouth 4x daily BRAND ONLY 120 Tab 11/15/2020 Active LIALDA 1.2 gram EC tablet TAKE 4 TABLETS BY MOUTH EVERY MORNING 06/16/2021 Active Active Problems Patient Care Coordination No te Formatting of this note migh t be different from the original. [facility] Neuropsychology Program [place] scanned to [employer]ISM on: 2019-05-14 Problem Noted Date Diagnosed Date Nontoxic multinodular goiter 08/06/2020 Other osteoporosis without current pathological fracture 03/27/2019 Surgical History Surgery Date Site/Laterality Comments EMG/NERVE CONDUCTION STUDY 05/27/2018 Medical History Medical History Date Comments H/O absence seizures 1998 Social History Tobacco Use Types Packs/Day Years Used Date Smoking Tobacco: Former Cigarettes 0.3 10 Smokeless Tobacco: Never Tobacco Cessation:Counseling Given: Yes Alcohol Use Standard Drinks/Week Comments Not Currently 0 (1 standard drink = 0.6 oz pur e alcohol) Interpersonal Safety Answer Date Record ed Physically Hurt Never 03/28/2020 Verbally Threaten Not on file 03/28/2020 Sex and Gender Information Value Date Recorded Sex Assigned at Not on file Gender Identity Not on file Sexual Orientation Not on file Obstetrics History Last Filed Vital Signs Vital Sign Reading Time Taken Comments Blood Pressure 128/82 06/30/2021 0908 EDT Pulse 70 06/30/2021 0908 EDT Temperature - - Respiratory Rate 12 01/28/2018 0840 EDT Oxygen Saturation - - Inhaled Oxygen Concentration - - Weight 69.9 kg (154 lb) 06/30/2021 0908 EDT Height 157.5 cm (5' 2) 06/30/2021 0908 EDT Body Mass Index 28.17 06/30/2021 0908 EDT Plan of Treatment Health Maintenance Due Date Last Done Comments RSV Immunization ( o r 60+ Years) (1 - 1-dose 60+ series) 2018 COVID-19 Vaccine (2022-24 season) 2023 Fall Risk Screening 11/02/2023 Hepatitis C Screen Completed 08/31/2023 Procedures Procedure Name Priority Date/Time Associated Diagnosis Comments HEPATITIS C AB W REFLEX TO HCV RNA BY PCR Today 08/31/2023 10:21 EST from Last 3 Months or Most Recently Relevant to Health Maintenance Results * HEPATITIS C AB W REFLEX TO HCV RNA BY PCR (08/31/2023 10:21 EST) Hep C Antibody Negative Negative 08/31/2023 19:48 EST [facility] Blood VENOUS BLOOD / Unknown 08/31/2023 10:21 EST 08/31/2023 17:44 EST Provider Outr Resulting Lab CHEMISTRY & BLOOD GAS ORDERABLES [facility] [address] [place] [address] from Last 3 Months or Most Recently Relevant to Health Maintenance Care Teams Wireless Team Member Relationship Specialty Start Date End Date Aria Thompson MD [address] [place] [address] PCP - General 12/03/17
--- OUTSIDE RECORDS SUMMARY | 2024-03-19 02:02 | XMS_ITS | Referral Summary ---
Author Organization [facility] Address [address] [place] [address] Care Team Providers Care Photography Editor Name Role Phone Aria Thompson MD Primary [...] migh t be different from the original. [facility] Neuropsychology Program [place] scanned to [employer]ISM on: 2019-05-14 Problem Noted Date Diagnosed Date Nontoxic multinodular goiter 08/06/2020 Other osteoporosis without current pathological fracture 03/27/2019 Social History Tobacco Use Types Packs/Day Years [...] on file Sexual Orientation Not on file Last Filed Vital Signs Vital Sign Reading Time Taken Comments Blood Pressure 128/82 06/30/2021 0908 EDT Pulse 70 06/30/2021 0908 EDT Temperature - - Respiratory Rate 12 01/28/2018 0840 EDT Oxygen Saturation - - Inhaled Oxygen Concentration - - Weight 69.9 kg (154 lb) 06/30/2021 0908 EDT Height 157.5 cm (5' 2) 06/30/2021 0908 EDT Body Mass Index 28.17 06/30/2021 0908 EDT Functional Status Functional Status Response Date of [...] concentrating, remembering, or making decisions? Yes 02/18/2018 Plan of Treatment Not on file Procedures Procedure Name Priority Date/Time Associated Diagnosis Comments HEPATITIS C AB W REFLEX TO HCV RNA BY PCR Today 08/31/2023 10:21 EST from Last 3 Months or Most Recently Relevant to Health Maintenance Results * HEPATITIS C AB W REFLEX TO HCV RNA BY PCR (08/31/2023 10:21 EST) Hep C Antibody Negative Negative 08/31/2023 19:48 EST [facility] Blood VENOUS BLOOD / Unknown 08/31/2023 10:21 EST 08/31/2023 17:44 EST Provider Outr Resulting Lab CHEMISTRY & BLOOD GAS ORDERABLES [facility] [address] [place] [address] from Last 3 Months or Most Recently Relevant to Health Maintenance Care Teams Photography Editor Relationship Specialty Start Date End Date Aria Thompson MD [address] [place] [address] PCP - General 12/03/17
--- OUTSIDE RECORDS SUMMARY | 2024-03-19 02:02 | XMS_ITS | Continuity of Care Document ---
Author Organization [facility] Address [address] [place] [address] Care Team Providers Care Drier Operator Helper Name Role Phone RAEANN THOMPSON MD Primary Care Physician Encounter [facility] NBR [id number] Date(s): 10/30/23 - 10/30/23 [facility] [address], [place] [address] Encounter Diagnosis Right ACL tear(Discharge Diagnosis) - 10/30/23 Discharge Disposition: Home or Self Care Attending Physician: Tenzin Medeiros MD Referring Physician: RAEANN THOMPSON MD Allergies, Adverse Reactions, Alerts Substance Reaction Severity Status codeine-guaifenesin Wheal Severe Active sulfa drugs Hives Severe Active lamoTRIgine Anaphylaxis Unknown Active Entyvio 1 Skin Moderate Active 1hives/oral lesions(? meds or relation to IBD/other source) Assessment and Plan Extracted from: Title:Alpine right knee Author:Tenzin Medeiros MD D ate:10/30/23 1.??Right ACL tear??S83.511A The patient demonstrates evidence of right knee pain??and swelling??secondary to a complete tear of the ACL. ??I explained to the patient that at the age of 62, it is not certain that she will require ACL reconstruction. ??The treatment options were discussed with the patient including continued observation, activity modifications, bracing, exercise,??formal physical therapy, injection therapy,??and possible need for ACL reconstruction. ??After a thorough discussion of the options, we will furnish the patient with the AAOS exercises for the knee. ??I have prescribed a course of physical therapy. ??She has a hinged knee brace at home that she will use for activities. ??I would like to see the patient in 8 weeks for follow-up. ??I did indicate to the patient that should she continue with symptomatic instability despite a conservative course,??she may be a candidate for ACL reconstruction. ??I also indicated??that given the osseous contusions??in the setting of an ACL tear, she is at increased risk for developing osteoarthritis??of the knee. ??The patient verbalized understanding agreed with the above plan. ??All questions were answered. ?? I personally reviewed the patient's referral, outside consultation notes, previous radiographic images and results, and relevant tests. ?? Thank you for the courtesy of this referral. ? Future Appointments Medications Albuterol (Eqv-ProAir HFA) 90 mcg/inh inhalation aerosol 8 g, 0 Refill(s), INHALE TWO PUFFS BY MOUTH EVERY 4 TO 6 HOURS NEEDED FOR COUGHING FITS, WHEEZING, SHORTNESS OF BREATH, 0 Refill(s) Start Date: 10/30/23 Status: Ordered benzonatate 200 mg oral capsule 10 EA, 0 Refill(s), TAKE ONE CAPSULE BY MOUTH TWICE A DAY FOR 5 DAYS, 0 Refill(s) Start Date: 10/30/23 Status: Ordered doxycycline hyclate 100 mg oral capsule 10 EA, 0 Refill(s), TAKE ONE CAPSULE BY MOUTH TWICE A DAY, 0 Refill(s) Start Date: 10/30/23 Status: Ordered Lagevrio 200 mg oral capsule 40 EA, 0 Refill(s), TAKE 4 CAPSULES BY MOUTH TWICE DAILY, 0 Refill(s) Start Date: 10/30/23 Status: Ordered Paxlovid 150 mg-100 mg (300 mg-100 mg Dose) oral tablet 30 EA, 0 Refill(s), TAKE THREE TABLETS BY MOUTH TWICE A DAY, 0 Refill(s) Start Date: 10/30/23 Status: Ordered polyethylene glycol 3350 oral powder for reconstitution 238 g, 0 Refill(s), TAKE 17G BY MOUTH ONCE DAILY NEEDED, 0 Refill(s) Start Date: 10/30/23 Status: Ordered predniSONE 20 mg oral tablet 60 EA, 0 Refill(s), TAKE TWO TABLETS BY MOUTH EVERY DAY, 0 Refill(s) Start Date: 10/30/23 Status: Ordered Proctofoam HC 1%-1% rectal foam 10 g, 0 Refill(s), INSERT 1 APPLICATORFUL RECTALLY TWO TIMES A DAY FOR 14 DAYS, 0 Refill(s) Start Date: 10/30/23 Status: Ordered Remicade 100 mg intravenous injection 3 mg/kg =, IV, Once, 0 Refill(s) Start Date: 10/23/22 Status: Ordered Trileptal 300 mg oral tablet 1,050 mg = 3.5 tab, Oral, Daily, # 315 tab, 3 Refill(s), RUBÉN, Pharmacy: [id number], 158.75, cm, 10/23/22 13:35:00 EST, Height, 62.6, kg, 08/02/22 9:59:00 EST, Weight Dosing Start Date: 07/17/23 Stop Date: 07/11/24 Status: Ordered Problem List Condition Confirmation Course [...] 4 Completed 1auto-populated from documented surgical case [id number] 3Dr. jd 09/08/2019, and 07/2021 Dr. Mir. 4for endometrosis Vital Signs Most recent to oldest [Reference Range]: 1 Peripheral Pulse Rate [60-100 bpm] 72 bp m (10/30/23 12:51 PM) Blood Pressure [90-140/60-90 mmHg] 112/7 0mmHg (10/30/23 12:51 PM) Mean Arterial Pressure, Cuff [65-140 mmH g] 84 mmHg (10/30/23 12:51 PM) Weight 63.50 kg (10/30/23 12:51 PM) Weight Measured (lbs) 139.993 lb (10/30/23 12:51 PM) Weight Dosing 63.500 kg (10/30/23 12:51 PM) Height 157.48 cm (10/30/23 12:51 PM) Height/Length Measured (inches) 62 inch (10/30/23 12:51 PM) BSA Measured 1.67 m2 (10/30/23 12:51 PM) Body Mass Index 25.6 kg/m2 (10/30/23 12:51 PM) Social History Social History Type Response Tobacco Former tobacco user Tobacco Use:. Sex Hospital Discharge Instructions Follow Up Care 10/22/2023 13:04:20 With:Follow-up in 8 weeks Address: When: Unknown Physician Outpatient Note * Tenzin Medeiros MD: PERFORM Event Display: Office Clinic Note Physician Authored Date: [id number] SKYLA LONDONO :1960 Age:62 years Sex:Female Visit Date:10/30/2023 Primary Care Physician: RAEANN THOMPSON MD Chief Complaint RIGHT KNEE 2ND OPINION History of Present Illness Please send a copy this note to Raeann Thompson MD. ?? The patient is a 62-year-old female who is seen today at the kind request of Dr. Medina for evaluation of right knee pain. ??The patient states??that while dancing on 09/08/2023, she jumped??and??landed??wrong, twisting her right knee.?? She denies hearing a pop but states that the room was very loud. ??She experienced immediate swelling and pain about the right knee.?? She was seen by Dr. Lawson??at [facility] where she was told she needed to have her ACL reconstructed. ??The patient has been faithful about??performing range of motion exercises. ??She has been using??a hinged knee brace??at home.?? She has had some swelling in the past week and believes that she has??overdone it.?? She has also been performing yoga, albeit with modifications. ??She has experienced??anterior knee poppingand??mild pain with stairs. ??She denies locking or catching. ??She has pain medially and laterallyabout the knee with use.?? She denies tona instability to the knee but states that she has been careful. ??She was limping but this is gradually improving.?? She has experience of numbness and tingling about the knee when it is swollen. ??She denies night pain that is waking her. ??She has taken acetaminophen to address the knee. Physical Exam Vitals & Measurements HR:??72??(Peripheral)?? BP:??112/70?? SpO2:??99%?? HT:??157.48??cm?? WT:??63.50??kg?? BMI:??25.6?? Pain Score:??2?? BSA:??1.67?? The patient's??right??lower extremity is neurovascularly intact. ??Sensation and motor exam are intact distally. ??All digits are warm and pink.?? A mild effusion is present. ??Range of motion of theknee is full with mild reproduction of pain anteriorly on terminal flexion. ??Estela's test is negative.?? Maxine exam is grade 2B. ??Pivot shift test is grade 1. ??No evidence of varus, valgus, or posterior instability is present. ??She demonstrates lateral greater than medial joint line tenderness.?? She demonstrates mild quadriceps atrophy??with good muscular activation. Assessment/Plan 1.??Right ACL tear??S83.511A The patient demonstrates evidence of right knee pain??and swelling??secondary to a complete tear ofthe ACL. ??I explained to the patient that at the age of 62, it is not certain that she will require ACL reconstruction. ??The treatment options were discussed with the patient including continued observation, activity modifications, bracing, exercise,??formal physical therapy, injection therapy,??and possible need for ACL reconstruction. ??After a thorough discussion of the options, we will furnish the patient with the AAOS exercises for the knee. ??I have prescribed a course of physical therapy. ??She has a hinged knee brace at home that she will use for activities. ??I would like to see the patient in 8 weeks for follow-up. ??I did indicate to the patient that should she continue with symptomatic instability despite a conservative course,??she may be a candidate for ACL reconstruction.??I also indicated??that given the osseous contusions??in the setting of an ACL tear, she is at increased risk for developing osteoarthritis??of the knee. ??The patient verbalized understanding agreed with the above plan. ??All questions were answered. ?? I personally reviewed the patient's referral, outside consultation notes, previous radiographic images and results, and relevant tests. ?? Thank you for the courtesy of this referral. 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 section???Colonoscopy???Laparoscopy of female pelvis Medications Albuterol (Eqv-ProAir HFA) 90 mcg/inh inhalation aerosol benzonatate 200 mg oral capsule doxycycline hyclate 100 mg oral capsule Lagevrio 200 mg oral capsule Paxlovid 150 mg-100 mg (300 mg-100 mg Dose) oral tablet polyethylene glycol 3350 oral powder for reconstitution predniSONE 20 mg oral tablet Proctofoam HC 1%-1% rectal foam Remicade 100 mg intravenous injection, 3 mg/kg, [...] MOTHER, at age: Unknown. Cause of : Diagnostic Results Diagnostic Study Interpretation: X-rays of the patient's right knee obtained on 09/09/2023 at [facility] demonstrate mild medial joint space narrowing. ??No fracture or dislocation is present. ??No significant patellofemoral degenerative changes are present. ??The lateral compartment is??preserved. ?? MRI of the patient's right knee obtained at [facility] on 10/02/2023 demonstrates??a small effusion. ??Osseous contusions are present consistent with a pivot shift mechanism. ??No significant??chondromalacia is noted tricompartmentally. ??A complete tear of the ACL is present. ??The medial and lateral menisci appear to be intact. Electronically Signed on 10/30/23 01:21 PM Tenzin Medeiros MD Patient Care team information Care Team Personnel Name: SP VENTURA, RAEANN Pham Position: No Access Member Role: Primary Care Physician Address: Address: [address] [address] [place], [place] [address] Name: Alina Mackenzie APRN Position: Physician Member Role: Nurse Practitioner Address: Address: [address] [place] [address] Care Team Related Persons Name: JAZMINE LONDONO Address: Home [address], [place] [id number] [facility] Name: DAVID KERR
--- OUTSIDE RECORDS SUMMARY | 2024-03-19 02:02 | XMS_ITS | Continuity of Care Document ---
Author Organization [facility] Address [address] [place] [address] Care Team Providers Care Cleaner Operator Name Role Phone RAEANN SNOWDEN MD Primary Care Physician [phone] Encounter [facility] NBR [id number] Date(s): 01/03/24 - 01/03/24 [facility] [address], [place] [address] Encounter Diagnosis Right ACL tear(Discharge Diagnosis) - 01/03/24 Discharge Disposition: Home or Self Care Attending Physician: KATE Rey Referring Physician: RAEANN SNOWDEN MD Allergies, Adverse Reactions, Alerts Substance Reaction Severity Status codeine-guaifenesin Wheal Severe Active sulfa drugs Hives Severe Active lamoTRIgine Anaphylaxis Unknown Active Entyvio 1 Skin Moderate Active 1hives/oral lesions(? meds or relation to IBD/other source) Assessment and Plan Extracted from: Title:Alpine right knee Author:KATE Rey Date:01/03/24 1.??Right ACL tear??M23.611 The patient comes in today with right knee pain due to an ACL tear. ??She is doing better. ??Every now and then she gets some catching but this is??becoming less.?? I recommend continuation of physical therapy, yoga, anti-inflammatories and ice as needed. ??Enter brace.?? I believe that she will continue to??improve. ??If this becomes??more unstable or unbearable with pain,??she will call us back??otherwise we will see her back as needed. Future Scheduled Tests Laboratory* Comprehensive Metabolic Panel 01/05/24 Medications Albuterol (Eqv-ProAir HFA) 90 mcg/inh inhalation [...] 315 tab, 3 Refill(s), RUBÉN, Pharmacy: [facility], 158.75, cm, 10/23/22 13:35:00 EST, Height, [...] 4 Completed 1auto-populated from documented surgical case [id number] 3Dr. jd 09/08/2019, and 07/2021 Dr. Mir. 4for endometrosis Vital Signs Most recent to oldest [Reference Range]: 1 Peripheral Pulse Rate [60-100 bpm] 70 bp m (01/03/24 9:16 AM) Blood Pressure [90-140/60-90 mmHg] 128/7 2mmHg (01/03/24 9:16 AM) Mean Arterial Pressure, Cuff [65-140 mmH g] 91 mmHg (01/03/24 9:16 AM) Weight 64.41 kg (01/03/24 9:16 AM) Weight Measured (lbs) 142 lb (01/03/24 9:16 AM) Weight Dosing 64.410 kg (01/03/24 9:16 AM) Height 157.48 cm (01/03/24 9:16 AM) Height/Length Measured (inches) 62 inch (01/03/24 9:16 AM) BSA Measured 1.68 m2 (01/03/24 9:16 AM) Body Mass Index 25.97 kg/m2 (01/03/24 9:16 AM) Social History Social History Type Response Tobacco Former tobacco user Tobacco Use:. Sex Physician Outpatient Note * KATE Rey: PERFORM Event Display: Office Clinic Note Physician Authored Date: [id number] BRYSKYLA Clarke Remy :1960 Age:63 years Sex:Female Visit Date:01/03/2024 Primary Care Physician: SP VENTURA, RAEANN Pham Chief Complaint F\U RIGHT KNEE History of Present Illness The patient demonstrates evidence of right knee pain??and swelling??secondary to a complete tear ofthe ACL.?? She has been in physical therapy and is doing fairly well. ??Every now and then her kneewill catch on her.?? She does do yoga and is generally very active??with walking.?? She notes that??her knee is not as painful as it was. ??She still has a little bit of swelling.?? She does wear the brace as needed. Review of Systems Other than the HPI today is unremarkable Physical Exam Vitals & Measurements HR:??70??(Peripheral)?? BP:??128/72?? SpO2:??99%?? HT:??157.48??cm?? WT:??64.41??kg?? BMI:??25.97?? Pain Score:??0?? BSA:??1.68?? General: Alert and oriented x3, pleasant cooperative, in no acute distress, appears to be their stated age, is generally fit appearing.? Right knee:??Anterior drawer testing is 1+ with a soft endpoint. ??Negative posterior drawer testing. ??Negative varus valgus stress testing. ??No joint line tenderness and negative Estela's. ??Mild effusion. ??Full range of motion. ??Skin distally is pink warm and dry. Assessment/Plan 1.??Right ACL tear??M23.611 The patient comes in today with right knee pain due to an ACL tear. ??She is doing better. ??Every now and then she gets some catching but this is??becoming less.?? I recommend continuation of physical therapy, yoga, anti-inflammatories and ice as needed. ??Enter brace.?? I believe that she will continue to??improve. ??If this becomes??more unstable or unbearable with pain,??she will call us back??otherwise we will see her back as needed. Problem List/Past Medical History Ongoing Benign thyroid [...] Unknown. Cause of : Electronically Signed on 01/03/24 12:31 PM KATE Rey Electronically Signed on 01/03/24 01:19 PM Tenzin Medeiros MD Patient Care team information Care Team Personnel Name: SP VENTURA, RAEANN Pham Position: No Access Member Role: Primary Care Physician Address: Address: [address] [address] [address] [place], [place] [address] Name: Alina Mackenzie APRN Position: Physician Member Role: Nurse Practitioner Address: Address: [address] [place] [phone] Care Team Related Persons Name: JAZMINE LONDONO Address: [address] [id number] [facility] Name: DAVID KERR
--- OUTSIDE RECORDS SUMMARY | 2024-03-19 02:02 | XMS_ITS ---
Author Organization Unknown Address [address] [place] [phone] Phone Care Team Providers Care Heat Transfer Technician Name Role Phone SP CARY Attending Unavailable Results MM SCREENING BILAT MAMMO W T LYUBOV W CAD - Completed: 07/11/2023 10:33 [facility] [place], [place] [address] PACS SIGNAL TOWER DIRECTOR REPORT Patient Name: SKYLA LONDONO Remy MRN: Sex: : Age: [id number] F 1960 62 Account: Accession: Admit: StayType: [id number] 07/11/2023 O/P Ordered: Order ID: Submitted: Ordering Provider: 07/11/2023 10:00 [id number] RAEANN NGUYEN Completed: Technologist: Resulted: 07/11/2023 10:33 [facility] 07/11/2023 11:11 Study Description: MM SCREENING BILAT MAMMO W ESTEFANIA W CAD Study Reason: Screening TECHNIQUE: 2D digital images with tomosynthesis and CAD COMPARISON:None. FINDINGS: The breasts are composed of scattered fibroglandular densities, Breast Density category B. No suspicious masses or suspicious microcalcifications are seen. No skin thickening or abnormal axillary lymph nodes are seen. IMPRESSION: BI-RADS Category 1, Negative mammogram Yearly screening mammography is recommended. Breast Density - Category B, scattered fibroglandular densities. A negative radiographic report should not delay biopsy if a dominant or clinically suspicious mass is present. Up to ten percent of cancers are not identified on mammography. A negative report may reinforce clinical impression. Adenosis and dense breasts may obscure an underlying neoplasm. False positive reports average 6 to 10%. Patient will receive a letter notifying them of these results. Report Digitally Signed by Ana M Clancy on 07/11/2023 11:11 AM EST Social History Type Status Start Date End Date Code Code Syst em Smoking History Former smoker 5321889 SNOMED CT Sex Female Medications Medication Start Date End Date Route Frequency Dose Code Code System Medication Instructions Home Meds Trileptal 300MG Oral Tablet 10/03/2014 Unknown ORAL THREE TIMES A DAY 300 MILLIGRAMS [id number] RxNorm TAKE 300 MILLIGRAMS ORAL THREE TIMES [...] Diagnosis Start Date Code Code Sys tem Encounter for screening mamm ogram for malignant neoplasm of breast 07/11/2023 SNOMED-CT Personal Care Team Section Performer Name Performer Role Active Date Inactive Da te
--- OUTSIDE RECORDS SUMMARY | 2024-03-19 02:03 | XMS_ITS | Encounter Summary ---
Author Organization [facility] Address [address] [place] [address] Care Team Providers Care Betting Clerks Name Role Phone Aria Thompson MD Primary Care Provider Reason for Visit * Reason Onset Date Comments Biopsy Results 08/12/2020 Encounter Details Date Type Department Care Team (Late st Contact Info) Description 08/12/2020 Telephone [facility] [place]inology [address] [place] [id number] Vanita Boykin RN Biopsy Results Social History Tobacco Use Types Packs/Day Years Used Date Smoking Tobacco: Former Cigarettes 0.3 10 Smokeless Tobacco: Never Interpersonal Safety Answer Date Record ed Physically [...] Yes 02/18/2018 documented as of this encounter Miscellaneous Notes * Telephone Encounter - Vanita Boykin RN - 08/12/2020 7141 EST Pt. Given this information, has no questions Had not heard results- will call back to schedule appt * Telephone Encounter - Vanita Boykin RN - 08/12/2020 1614 EST ----- Message from Joanne Luna MD sent at 08/12/2020 15:33 EST ----- I could not a find the note of this patietn, came in downtime and did biopsy, please let her know if we have no done that, biopsy was benign, come back n a year, us in office please documented in this encounter Plan of Treatment Not on file documented as of this encounter Visit Diagnoses Not on filedocumented in this encounter Care Teams Betting Clerks Relationship Specialty Start Date End Date Aria Thompson MD [address] [place] [address] PCP - General 12/03/17 documented as of this encounter
--- OUTSIDE RECORDS SUMMARY | 2024-03-19 02:03 | XMS_ITS | Encounter Summary ---
Author Organization [facility] Address [address] [place] [address] Care Team Providers Care Orderlies Teacher Name Role Phone Aria Thompson MD Primary Care Provider Reason for Referral * PT/OT/ST (Routine) - Closed Specialty Diagnoses / Procedures Referred By Merari rosario Referred To Contact Speech & Language Pathology Diagnoses Memory loss Word finding difficulty Marleny Quezada MD [address] [place] [phone] [facility] Op Speech Language Pathology [address] [place] [id number] Referral ID Status Reason Start Date Expiration Date V isits Requested Visits Authorized [id number] Closed Specialty Services Required 05/26/2019 1 1 Question Answer Reason for Request: language difficulties possibly impacting work environment 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: Communication-Cognitive Eval & Treat, Speech-Language Eval & Treat * PT/OT/ST (Routine) - Closed Specialty Diagnoses / Procedures Referred By Merari rosario Referred To Contact Rehab Therapies Diagnoses Memory loss Word finding difficulty Marleny Quezada MD [address] [place] [address] [facility] [address] [place], [place] [id number] Referral ID Status Reason Start Date Expiration Date V isits Requested Visits Authorized [id number] Closed Specialty Services Required 05/26/2019 1 1 Question Answer Reason for Request: language difficulties possibly impacting work environment Reason for Visit * Reason Comments Follow-up Encounter Details Date Type Department Care Team (Late st Contact Info) Description 05/26/2019 9:30 EDT Office Visit [facility] Neurology [facility] [address] [place] [address] Marleny Quezada MD [address] [place] [address] Seizures (HCC-CMS) (Primary Dx); Memory loss; Word finding difficulty; On antiepileptic therapy Social History Tobacco Use Types Packs/Day Years Used Date Smoking Tobacco: Former Cigarettes 0.3 10 Smokeless Tobacco: Never Sex and Gender Information Value Date Recorded [...] Yes 02/18/2018 documented as of this encounter Progress Notes * Marleny Quezada MD, MD - 05/26/[address] [facility] NEUROLOGY ?? FOLLOW UP - 05/26/2019 ? CHIEF COMPLAINT: Seizures, memory loss. ?? INTERVALHISTORY: Elsa is a 58-year-old female with a history of epilepsy, previously well controlled, but of undefined etiology, on single-agent brand Trileptal with a subjective description of worsening of her spells ever since a work-related injury in September of 2016. Plan was to maintain her on her current Trileptal as things seemed to even out. We did discuss osteopenia/osteoporosis on chronic Trileptal therapy as she had not responded to lamotrigine. She did not do well on generics. Headaches and the prior right arm symptoms did not appear to be issues. She has had Duplex studies and an EMG of the right arm., both clinically of no significance. I had last seen the patient in October and was referred for an evaluation due to the results of her DEXA scan. She was also referred to the Memory program for an evaluation of cognitive function due tomemory complaints. I do not have any records from her PCP regarding the most recent health issue she is describing. She was taken out of work. Reports that she cannot handle much work- got worn out, refers to a colitis exacerbation and thinks she had an exacerbation of her seizures during that time. She is back to work 3 days per week. Primary had told her to recover first and then to discuss options for osteoporosis treatment as she was recently seen in the Osteoporosis clinic after we had done a DEXA scan in which she had osteoporosis. She wants to do the yearly shots. Is on a colitis medication but cannot recall what it is that she is taking. Recalls that she had a four night in a row stint of events or seizures in April. Was out of work last week of March and up to now with beginning of 3 days per week. Was out of work for 5 weeks. No more seizures. Feels like she is doing better. By third working day she is exhausted. In terms of the colitis, there may have been some bleeding, loose stools, abdominal pain. Say she lost 10 pounds. Seizures are described as coming on at night. Feels like she wakes up in a dream state. Sometimes her says she taps her hand on him or herself. Feels like she is exhausted. Tries to go back to sleep. Guessing about 2 to 4 per night for the 4 nights when she was ill. PAST MEDICAL AND SURGICAL HISTORY: Epilepsy, headaches, right arm pain, section, colitis. ?? MEDICATIONS: Trileptal BRAND ONLY 300 mg 4 times daily. Vitamin D. ? Medication for colitis ?? ALLERGIES: SULFA. ?? FAMILY HISTORY: Dad, bladder cancer. Mom , COPD. One son, diabetes. ?? SOCIAL HISTORY: Former smoker, rarely drinks alcohol. ?? REVIEW OF SYSTEMS: A 14-point review of systems identified with the patient. Aside from the above, all other systems are reviewed and negative. ?? PHYSICAL EXAM: Previously on the MOCA (October 2018) she scores 26/30. She has trouble with the trial, reciting a sequence of numbers backward, cannot name more than 11 words that begin with the letterB and she scores 4/5 for delayed recall with some trouble during registration. Grossly, she appears awake, alert and attentive and fully conversation. No obvious facial asymmetryand she is able to stand, walk up and down a flight of stairs with no difficulty. IMAGING: Bone density scan 09/17/2018 at [facility]: osteoporosis of lumbar spine and osteopenia of left hip. MRI Brain 08/09/2017 with non specific white matter changes. EMG: April 2018- The electrodiagnostic study was normal today which is reassuring. There is no need for further neurological investigations unless there is change in symptoms. EEG: April 2018, 72 hour ambulatory and baseline studies at [facility] Impression: Abnormal ambulatory monitoring study with left temporal slow. ?? Clinical Correlation: Findings suggest an area of dysfunction in the left temporal area. There is no epileptiform activity in this study. NEUROCOGNITIVE TESTIN05/12/2019 The pattern of performance on cognitive testing revealed isolated weaknesses for language (fluency,naming, word reading), learning and recall for a word list, spatial recall, and executive functions(cognitive flexibility, sequencing). A lateralized pattern of deficits is not apparent despite positive left hemisphere findings on neuroimaging. An amnestic pattern is also not appreciated given scat tered retrieval weaknesses for spatial information however intact recognition for verbal and spatial information overall. Language weaknesses may reflect long-standing difficulties however a consultation with speech and language pathology to further assess speech difficulties is warranted. A consultation with occupational therapy may also be helpful to establish workplace strategies in order to manage responsibilities most efficiently. Supportive counseling is recommended to address subjective symptoms of depression and anxiety as well as to ensure they are not contributing to cognitive weaknesses. Additional recommendations are offered below LAB DATA: Component Latest Ref Rng & Units 03/27/2019 WBC 4.0 - 12.4 K/cmm 5.21 RBC 3.86 - 5.04 M/cmm 4.00 Hemoglobin 11.6 - 15.2 gm/dl 12.4 HCT 34.9 - 44.4 % 35.7 MCV 81 - 98 fl 89 MCH 26.7 - 33.3 pg 31.0 MCHC 32.1 - 35.9 gm/dl 34.7 RDW-CV <14.7 % 13.7 RDW-SD <50.4 fl 45.2 PLT 141 - 377 K/cmm 392 (H) MPV 9.5 - 12.7 fl 8.7 (L) Neutrophils % 42.6 Lymphocytes % 38.4 Monocytes % 13.6 Eosinophils % 3.3 Basophils % 1.7 Immature Grans % 0.4 ABS Neutrophils 2.20 - 8.85 K/cmm 2.22 ABS Lymphs 1.09 - 3.30 K/cmm 2.00 ABS Monocytes 0.1 - 0.8 K/cmm 0.71 ABS Eosinophils 0.03 - 0.61 K/cmm 0.17 ABS Basophils 0.01 - 0.11 K/cmm 0.09 ABS Immature Grans 0 - 0.06 K/cmm 0.02 Type of Diff: Automated Potassium 3.5 - 5.0 mEq/L 4.2 Sodium 136 - 145 mEq/L 128 (L) Chloride 96 - 110 mEq/L 91 (L) CO2 22 - 32 mEq/L 28 Total Alkaline Phosphatase 38 - 126 U/L 87 Bilirubin, Total <1.4 mg/dl <0.5 AST 15 - 46 U/L 22 ALT <53 U/L 24 Albumin 3.4 - 4.9 g/dl 4.7 Total Protein 6.3 - 8.2 g/dl 7.0 Creatinine 0.52 - 1.04 mg/dl 0.59 GFR, Calculated >60 ml/min/1.73m2 100 BUN 10 - 26 mg/dl 11 Calcium 8.5 - 10.5 mg/dl 9.7 Calculated Calcium 8.5 - 10.5 mg/dl 9.1 Glucose, Serum 70 - 100 mg/dl 96 Fasting? No TSH 0.47 - 4.68 uIU/ml 2.78 25OH Vitamin D Tot 30 - 100 ng/ml 53.2 Phosphorus 2.5 - 4.5 mg/dl 4.2 PTH 19 - 88 pg/ml 48 ?? ASSESSMENT AND PLAN: Elsa is a 58-year-old female with a history of previously diagnosed epilepsy,previously well controlled, but of undefined etiology on single-agent brand Trileptal with a subjective description of worsening of her events ever since a work-related injury in September of last year. She had been doing well when I last saw her but now endorses a new exacerbation. She also has hyponatremia likely related to the Trileptal and osteoporosis, also linked with chronic Trileptal therapy. Her Epilepsy syndrome is still not defined. She has had head imaging and a prior ambulatory EEG butwithout target events. We talked about repeating it but will hold off for now. Since she is in the midst of trying to get better from her most recent health issue, I did not feel it tidwell to start making changes to her anti-seizure medication regimen. I have asked she follow up with the recommendations from the Osteoporosis clinic and to repeat her labs regarding the hyponatremia. Ideally, she ought to change her medication but will re-visit this when I see her again. In terms of the cognitive complaints, she had isolated findings on her evaluation and no definitivemention was made of MCI but she clearly has SCI. There is no indication for nootropics at this time. 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 She enquired about MM and I did not object to her trying it in the midst of her having a diagnosis of seizures/ Epilepsy. She will think about it and let me know if she wants to proceed with it. ?? I spent a total of 30 minutes in face to face time with this patient and 25 minutes of that time was spent in disease review, image review, counseling, treatment planning and coordination of care as described in the progress note. documented in this encounter Plan of Treatment Scheduled Referrals Name Type Priority Associated Diagnoses Order Schedule AMB CONS/FOLLOW UP OCCUPATIONAL THERAPY Outpatient Referral Routine Memory loss Word finding difficulty Ordered: 05/26/2019 AMB CONS/FOLLOW UP SPEECH & LANGUAGE PATHOLOGY Outpatient Referral Routine Memory loss Word finding difficulty Ordered: 05/26/2019 documented as of this encounter Visit Diagnoses Diagnosis Seizures (HCC-CMS)- Primary Other convulsions Memory loss Word finding difficulty Problems with communication (including speech) On antiepileptic therapy documented in this encounter Care Teams Orderlies Teacher Relationship Specialty Start Date End Date Aria Thompson MD [address] [place] [address] PCP - General 12/03/17 documented as of this encounter
--- OUTSIDE RECORDS SUMMARY | 2024-03-19 02:03 | XMS_ITS | Encounter Summary ---
Author Organization [facility] Address [address] [place] [address] Care Team Providers Care Blood Donor Recruiter Supervisor Name Role Phone Aria Thompson MD Primary Care Provider Encounter Details Date Type Department Care Team (Late st Contact Info) Description 06/21/2021 Lab Requisition [facility] Pathology & Laboratory Medicine - [address] [address] Aria Thompson MD [facility] [place] [address] Encounter for gynecological examination (general) (routine) without abnormal findings Social History Tobacco Use Types Packs/Day Years [...] Procedure Name Priority Date/Time Associated Diagnosis Comments PAP TEST Today 06/20/2021 17:11 EDT HPV DNA DETECTION WITH GENOTYPING, PCR Today 06/20/2021 17:11 EDT documented in this encounter Results * HUMAN PAPILLOMAVIRUS (HPV) DETECTION-HIGH RISK TYPES (06/20/2021 17:11 EDT) HPV other High Risk types, PCR Negative Negative 06/30/2021 7:59 EDT [facility] Comment:No E6 or E7 mRNA is detected from HPV types 16,18,31,33,35,39,45,51,52,56,58,59,66, and 68 by software engineer advisor mediated amplification. Papanicolaou smear specimen (specimen) CERVIX UTERI STRUCTURE / Unknown 06/20/2021 17:11 EDT 06/27/2021 12:22 EDT Aria Thompson MD MICROBIOLOGY - GENERAL ORDERABLES [facility] [address] [place] [address] * PAP TEST (06/20/2021 17:11 EDT) Specimens A. Cervix and/or Endocervix , ThinPrep Imaging System with Manual Evaluation 06/30/2021 7:59 EDT [facility] Specimen Adequacy Satisfactory for Evaluation - transformation zone component present 06/30/2021 7:59 EDT [facility] General Categorization Negative for intraepithelial lesion or malignancy 06/30/2021 7:59 EDT [facility] Descriptive Diagnosis Fungal organisms present morphologically consistent with Shaye species. 06/30/2021 7:59 EDT [facility] Attestation . 06/30/2021 7:59 EDT [facility] at 0759 Clinical History Clinical History, Signs, Symptoms, Chief Complaint, Pertaining to This Order: See below Last Menstral Period: MENOPAUSE 06/30/2021 7:59 EDT [facility] HPV The result for the Human Papillomavirus (HPV) Detection-High Risk Types is Negative. No E6 or E7 mRNA is detected from HPV types 16,18,31,33,35,39 ,45,51,52,56,58,5 9,66, and 68 by software engineer advisor mediated amplification.Carly ting was performed on specimen [id number] and was resulted on 06/30/2021 0721 EDT by EVIE, LAB INSTRUMENT RESULTS IN 06/30/2021 7:59 EDT [facility] Performing Lab [facility] 06/30/2021 7:59 EDT [facility] Scanned Images 06/30/2021 7:59 EDT [facility] Papanicolaou smear specimen (specimen) CERVIX UTERI STRUCTURE / Unknown 06/20/2021 17:11 EDT 06/22/2021 9:01 EDT Aria Thompson MD PATHOLOGY ORDER JUNE [facility] [address] [place] [address] documented in this encounter Visit Diagnoses Diagnosis Encounter for gynecological examination (general) (routine) without abnormal findings documented in this encounter Care Teams Blood Donor Recruiter Supervisor Relationship Specialty Start Date End Date Aria Thompson MD [address] [place] [address] PCP - General 12/03/17 documented as of this encounter
--- OUTSIDE RECORDS SUMMARY | 2024-03-19 02:03 | XMS_ITS | Encounter Summary ---
Author Organization [facility] Address [address] [place] [address] Care Team Providers Care Asic Design Engineer Name Role Phone Aria Thompson MD Primary Care Provider Encounter Details Date Type Department Care Team (Late st Contact Info) Description 03/27/2019 Results Only Imaging [facility] [phone] Unknown, Provider, Social History Tobacco Use Types Packs/Day Years [...] as of this encounter Plan of Treatment Pending Results Name Type Priority Associated Diagnoses Date /Time OUTSIDE IMAGES - PLAIN FILM MSK Imaging 03/27/2019 10:05 EDT OUTSIDE IMAGES - DEXA BONE SCAN Imaging 03/27/2019 10:46 EDT documented as of this encounter Visit Diagnoses Not on filedocumented in this encounter Care Teams Asic Design Engineer Relationship Specialty Start Date End Date Aria Thompson MD [address] [place] [address] PCP - General 12/03/17 documented as of this encounter
--- OUTSIDE RECORDS SUMMARY | 2024-03-19 02:03 | XMS_ITS | Encounter Summary ---
Author Organization [facility] Address [address] [place] [address] Care Team Providers Care Crew Lead Name Role Phone Aria Thompson MD Primary Care Provider Reason for Visit * Reason Onset Date Comments Appointment Related 09/15/2019 Encounter Details Date Type Department Care Team (Late st Contact Info) Description 09/15/2019 Telephone [facility] Endocrinology - [facility] [address] [place] [address] Amber Mendosa, [address] [facility] [address] [place] [address] Appointment Related Social History Tobacco Use Types Packs/Day Years [...] encounter Miscellaneous Notes * Telephone Encounter - Cody Streeter - 09/15/2019 1526 EST Left message with clinic address change details for upcoming 10/03/[address] Mendosa. Advised patient clinic is now located at [address] [place] [address] [facility] [facility] documented in this encounter Plan of Treatment Not on file documented as of this encounter Visit Diagnoses Not on filedocumented in this encounter Care Teams Crew Lead Relationship Specialty Start Date End Date Aria Thompson MD [address] [place] [address] PCP - General 12/03/17 documented as of this encounter
--- OUTSIDE RECORDS SUMMARY | 2024-03-19 02:03 | XMS_ITS | Encounter Summary ---
Author Organization [facility] Address [address] [place] [address] Care Team Providers Care Bit Bender Name Role Phone Aria Thompson MD Primary Care Provider Encounter Details Date Type Department Care Team (Latest Contact Info) Description 09/09/2019 Lab Requisition [facility] Pathology & Laboratory Medicine - [address] [address] Jeovany Perales MD [address] [address] Ulcerative colitis, unspecified, without complications ([facility]); Diarrhea, unspecified; Hemorrhage of anus and rectum Social History Tobacco Use Types Packs/Day Years [...] Procedure Name Priority Date/Time Associated Diagnosis Comments SURGICAL PATHOLOGY Today 09/08/2019 8: 15 EST Ulcerative colitis, unspecified, without complications ([facility]) Diarrhea, unspecified Hemorrhage of anus and rectum documented in this encounter Results * SURGICAL PATHOLOGY (09/08/2019 8:15 EST) Amendment Comment This is an amended report which replaces the original pathology report issued on 09/11/2019. This amendment is being issued to update the trainee attestation. There is no change to the diagnosis in this case. 10/24/2019 12:03 [facility] Final Diagnosis A. COLON, RIGHT, BIOPSY: - Quiescent colitis. - Negative for dysplasia. B. COLON, LEFT, BIOPSY: - Multifocal [id number] active chronic colitis. - Negative for dysplasia. Basil Pleitez MD 10/24/2019 12:03 [facility] Amendment electronically signed by Rey Montalvo MD on 10/24/2019 at 1203 at 1020 Clinical History HX of ulcerative colitis, rectal bleeding, R/O dysplasia Evaluate for dysplasia HX ulcerative colitis since age 24 with recurrent flares No polyps or tumors 10/24/2019 12:03 [facility] Attestation There was significant resident/fellow involvement in the diagnostic evaluation of this case. By the signature below, the attending physician certifies that they have personally conducted a gross and/or microscopic examination of the described specimens and rendered or confirmed the above diagnosis. 10/24/2019 12:03 [facility] Amendment electronically signed by Rey Montalvo MD on 10/24/2019 at 1203 at 1020 Gross Description A. Received in formalin labelled with proper patient identification (initials B, E) and Bx of right colon are multiple fragments of corea tissue measuring 0.2 cm and 0.3 cm in greatest dimension. The specimens are submitted entirely in A 1-A2. B. Received in formalin labelled with proper patient identification (initials B, E) and Bx of left colon are multiple fragments of corea tissue measuring 0.2 cm and 0.3 cm in greatest dimension. The specimens are submitted entirely in B1-B3. Lisa09/09/2019 16:52 10/24/2019 12:03 EST [facility] Resident/Buck w: Basil Pleitez MD 10/24/2019 12:03 EST [facility] Scanned Images 10/24/2019 12:03 EST [facility] Tissue ENTIRE LEFT COLON / Unknown 09/08/2019 8:15 EST 09/09/2019 16:30 EST Tissue specimen (specimen) LEFT COLON STRUCTURE / Unknown 09/08/2019 8:15 EST 09/09/2019 16:30 EST Jeovany Perales MD PATHOLOGY ORDERABLES [facility] [address] [place] [address] documented in this encounter Visit Diagnoses Diagnosis Ulcerative colitis, unspecified, without complications ([facility]) Diarrhea, unspecified Hemorrhage of anus and rectum Hemorrhage of rectum and anus documented in this encounter Care Teams Bit Bender Relationship Specialty Start Date End Date Aria Thompson MD [address] [place] [address] PCP - General 12/03/17 documented as of this encounter
--- OUTSIDE RECORDS SUMMARY | 2024-03-19 02:03 | XMS_ITS | Encounter Summary ---
Author Organization [facility] Address [address] [place] [address] Care Team Providers Care Street Vendor Name Role Phone Aria Thompson MD Primary Care Provider Reason for Visit * Reason Comments Memory Loss * Prior Authorization (Routine) - Closed Specialty Diagnoses / Procedures Referred By Merari rosario Referred To Contact Psychology Diagnoses Memory loss Seizures ([facility]) Marleny Qeuzada MD [address] [place] [address] [facility] [address] [place] [address] Referral ID Status Reason Start Date Expiration Date V isits Requested Visits Authorized [id number] Closed Specialty Services Required 10/29/2018 1 1 Encounter Details Date Type Department Care Team (Late st Contact Info) Description 05/12/2019 9:00 EDT Office Visit [facility] Medical Psychology - [facility] [address] [place] [address] Amber Andersen, PhD [facility] [address] [address] Memory loss (Primary Dx); Depression, unspecified depression type; Anxiety Social History Tobacco Use Types Packs/Day Years [...] as of this encounter Progress Notes * Ganesh Phd, Amber Menendez, PhD - 05/12/2019 0900 EDT [facility] Neuropsychological Evaluation Name: Elsa Lujan Age: 58 y.o. 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 She presents to the visit noting gradually progressive memory loss following a concussion in September 2016. Neurologic history is remarkable for adult onset seizures (age 38). She was accompanied by her , Bartolo Lujan who provided collateral information. The purpose of this evaluation, limits of confidentiality, and the consultative nature of the evaluation were explained thoroughly and seemingly understood by Ms. Lujan (verbal assent). BACKGROUND INFORMATION The following information reported below was obtained from a clinical interview with Ms. Lujan , collateral informants when available, a questionnaire completed by the patient, and review of medical records. PRESENTING COMPLAINTS Cognitive At age 38 I had an unexplained seizure disorder that was controlled with Trileptal. I fell in September 2016 and had a serious concussion and memory problems started. It's taking me longer to manage tasks. Reported weaknesses include attention (concentration, distractibility, more multitasking), slowed information processing, changes in speech and language (word retrieval, auditory comprehension, expressive language, spelling), organizational abilities, and short-term memory loss (repeating herself, forgetting conversations). Physical Imbalance, body aches, headaches, low energy and strength, occasional dizziness. Sleep fluctuates with longer periods of rest following seizures. On average she sleeps 5-6 hours. Appetite is adequate. Weight is stable. Emotional Onset of depression and anxiety began after her head injury and stem from physical and cognitive limiations. She denies current or past supportive counseling or psychiatry oversight. She denied thoughts for self-harm, auditory/visual hallucinations, delusions. No history of trauma or psychiatric hospitalization was reported. Family psychiatric history is remarkable for depression (maternal grandmother). Functional abilities Independent for self-care. 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 She is less comfortable driving longer distances and relies on her for transportation. MEDICAL HISTORY Neurologic history is remarkable for adult onset seizures at age 38. She recalls her first seizure occurring while driving noting a sensation of I was not really there. She noted this came at a time of high stress. A few weeks later she reported her first grand mal seizure at which point she presented to neurology and was prescribed Trileptal to which she responded positively. She notes experiencing roughly 2-3 lifetime grand mal seizures however the majority of seizures are brief in length with a sensation of d??j?? vu, dazed, and reduced verbal output. 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 She subsequently began having breakthrough seizures. Antiepileptic medications were being adjusted which reportedly also contributed to increased seizure activity. At the time of this consultation she reported having nocturnal seizures Sunday through Sunday of the week prior. She has not returned to her baseline (cognitively and physically) since her concussion and began struggling to manage workplace responsibilities as she had previously. Her primary care provider recommended she take medical leave for 5 weeks with a gradual return. Additional medical history is remarkable for colitis (age 24). Current Medications Oxcarbazepine Neuroimaging/procedures Brain MRI July 2017 A few tiny foci of T2 hyperintensity within the white matter. This may represent early small vessel ischemic disease or early demyelinating process. Otherwise unremarkable MRI of the brain. SUBSTANCE USE HISTORY She consumes alcohol on special occasions (rarely). She denied a history of problematic alcohol dependence. Her noted prior to her concussion she was drinking at higher quantities however denies any concerns regarding dependence or addiction. Recreational substance use was denied. She reportedly experimented with marijuana in her 20's. She was a social cigarette smoker and quit 25 years ago. She consumes 1-1/2 cups of caffeine per day. Family history of addiction is remarkable for alcoholism (mother). LEGAL HISTORY Ms. Lujan is currently represented by digester operator Jasen Stein for legal support of a Worker's Compensation claim after sustaining a fall while at her job (convenience store). DEVELOPMENTAL HISTORY To her knowledge she was born full-term with no known , , or complications. All developmental milestones were obtained at age- appropriate time points. Pediatric medical history is unremarkable with the exception of a tonsillectomy (age 5). ACADEMIC/OCCUPATIONAL HISTORY She completed a bachelor's degree from the [employer] in business administration and accounting. She recalls being a good student with no suspicion or formal diagnosis for a learning disability. She denies receiving special education resources or academic retention. Academic strengths were noted for mathematics with weaknesses for Arabic. 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 She has been on medical leave for the past 3 weeks. Managing workplace responsibilities has become more effortful as a result of memory loss, forgetfulness, and slowed information processing. PSYCHOSOCIAL HISTORY Ms. Lujan was born and raised in her [place] to her biological parents. 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 Her mother was at age 77 from complications of COPD, she received a nursing degree and was employed as a nurse. She has a sister (67) and a brother (63). She has been to her for 14 years. She was previously for 16 years and has a 34-year-old son from her first marriage. INFORMATION REPORTED BY FAMILY OR OTHERS Bartolo Walton () was available to provide additional information about Ms. Lujan's cognitive functioning and daily activities. Her 's primary concerns are her seizures, greater forgetfulness, increased dependence particularly for transportation, and declining spelling abilities. She has difficulty retaining conversations and repeats herself often. She is more distractible and has difficulty sustaining attention particularly when workplace responsibilities become stressful. She struggles to find words and appears confused at times with instructions. Her mood is stable however moreirritable on occasion. He denied concerns for self-harm. 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 He notes the most recent more significant seizure occurred in January 2019 while at a conference in [place] where she was dazed, confused, and able to only gesture a yes or no in response to questions. He denies any recent grand mal seizures. BEHAVIORAL OBSERVATIONS Ms. Lujan arrived on time to her visit and was accompanied by her . She was well dressed and adequately groomed. Observed motor functioning including gait or unremarkable. Vision and hearing appeared intact. She occasionally used reading glasses for clarity. Eye contact was consistent. Speechwas fluent with occasional word retrieval difficulties. No paraphasias or dysarthria was observed. She had notable difficulties with word reading that appearing consistent with academic history. Auditory comprehension was intact with no evidence of confusion. No evidence of impulsivity or disinhibition was observed. Thought processes were linear and goal-directed. Insight was intact. Affect was broad. Reported mood was fine. She was alert, attentive, and cooperative. NEUROPSYCHOLOGICAL FINDINGS Ms. Lujan was administered a comprehensive battery of neuropsychological tests, evaluating a broad range of brain-behavior functions. The performance on these measures is reviewed below. Basis of Evaluation Review of available records; Clinical interview with the patient; Neurobehavioral exam; MMSE-II; ACS Word Choice; Dot Counting Test; Test of Premorbid Functioning (TOPF); WAIS-IV (select subtests); [place] Naming Test; COWAT; [place] Verbal Learning Test-II (Standard Form); Bina Memory Scale-IV (Logical Memory I/II); Brief Visuospatial Memory Test-Revised (BVMT); Joanna Martinez Executive Function System (Color Word); [place] Making Test; [place] Card Sorting Task; Clock drawing; Keith-Osterrieth Complex Figure test (copy); Finger Tapping Test; Ojeda Depression Inventory; and State Trait Anxiety Inventory. Symptom Validity Performance on stand-alone and embedded measures of effort fell within normal limits suggesting consistent and reliable effort was put forth on testing. The results of this evaluation are therefore expected to reflect her true cognitive abilities. Cognitive screen MMSE-2 total score was normatively average with points lost for recall (2/3). Intellectual Functioning Estimated intellectual abilities based on a word reading task are unable to be interpreted given a statistically significant difference between actual and demographic premorbid estimates. She obtained the following index scores on the WAIS-IV: Verbal Comprehension was average (37%ile); Perceptual Reasoning was average (30%ile); Working Memory was low average (9%ile); and Processing Speed was average (34%ile). Her Full Scale score was 89 (23%ile) estimating premorbid abilities to be low average. Attention, Working Memory, & Information Processing Speed Verbal attention and working memory as assessed by a task of digit repetition, reversal, and sequencing were within the low average range. She was able to repeat 5 in a forward direction, 2 digits inreversed direction, and 5 sequentially. Timed mental arithmetic was low average. Mental and motor pr ocessing speeds on involving short term visual memory, visuomotor coordination, visual discrimination, and visual scanning was average for symbol coding and low average for symbol search. On a timed task of visual scanning, visuomotor speed, numerical sequencing, and attention (Trails A) her performance was average. Language Functions Speech was fluent with word retrieval difficulties. Basic and multi-step commands were intact. Reading and reading comprehension fell within normal limits with the exception of more complex concepts.Generative verbal fluency was impaired for phonemic fluency (raw scores: 7,7,7). Generative fluency(semantic) was low average with a total of 15 responses. Confrontation naming was borderline with 48 of 60 items correctly named. Color and word reading under timed conditions were low average and borderline, respectively. Visuospatial/visuoconstructional Abilities Performance on a task manipulating blocks based on two-dimensional images was average. In areas of spatial ability,fluid intelligence, and understanding part- whole relationships (matrix reasoning) her performance was average. Illustration of a complex figure was borderline to low average. She approached the drawing in a piecemeal manner failing to appreciate the figure as a whole. Clock drawing wa s intact for contour, numbers, and hand placement. Memory Functions Immediate recall of a story was low average with low average delayed recall. Recognition was borderline to low average (3-9%ile). Acquisition of a 16-item word list was average with fair learning noted across multiple presentations (items recalled per trial: 3,8,8,11,11). Recall was average after ashort and long delay with a maximum recall of 12 for short delay and 11 recalled following a 30-minute delay. Recognition/discrimination performance was low average, with 12/16 target items identified and one false positive. Immediate recall of abstract visual designs was average. Delayed recall was borderline. Recognition/discrimination performance was intact with all target items identified. Abstract Problem-Solving and Executive Functioning Abstract reasoning was average. On a digit sequencing task requiring mental organization and ordering of numbers was low average. Performance on a task of novel problem solving and concept formation (WCST) was average for total errors and perseverative responses/errors with 72% conceptual level responses and all categories obtained. She lost response set twice. On the [place] Making Test (B) her performance was low average in her ability shift mental sets while alternating numbers and letters in order. On a task requiring inhibition of over-learned responses and switching between inhibitory andnon-inhibitory responses (Color-Word) her performance was average. Motor/Sensory Functioning Fine motor speed (finger tapping) was bilaterally average. Observed motor functioning including gait was unremarkable. Mood Functioning Responses on objective measures of mood fell within normal limits with no evidence for clinically significant depression or anxiety. Summary Ms. Lujan is a 58-year-old, right-hand dominant, female with 16 years of education referred for a comprehensive neuropsychological evaluation to assess persistent cognitive weaknesses. She reports gradually progressive cognitive declines coinciding with break through seizures and a head injury (2017). Cognitive difficulties have impacted her ability to manage workplace responsibilities andshe is currently on medical leave. She is functionally independent. She is less comfortable with driving to recurrence of seizures. Mood is notable for mild depression, anxiety and irritability stemming from physical and cognitive limitations. Premorbid abilities are estimated to be average. Relative weaknesses included attention, working memory language (phonemic fluency, picture naming, word reading), learning and recall for a story (below average recognition), spatial recall (intact recognition) and select executive functions (cognitive flexibility, sequencing). Performance was consistent with baseline abilities for information processing, language (semantic fluency, verbal concept formation), visual-spatial/constructional abilities, learning and recall for a word list, spatial learning, and executive functions (novel problem-solving, nonverbal concept formation, inhibitory control, mental set shifting, abstract reasoning). Fine motor speed was bilaterally intact. Objective measures of mood were inconsistent with clinically significant levels of depression or anxiety. Impressions The pattern of performance on cognitive testing [...] to cognitive weaknesses. Additional recommendations are offered below. Very Superior Superior High Average Average X X(list) X(list) X X X X Low Average X(story) X(story) X X Borderline X Impaired IQ Verbal Learning Verbal Memory Visual Learning Visual Memory Attention Speed Language Visuospatial Executive Function Recommendations In light of the findings discussed above, the following recommendations are offered: ?? Medical follow-up: Medical care is deferred to treatment providers. Ongoing follow up with neurology is recommended for seizure management. She may wish to discuss driving with medical providers to ensure seizures are not a barrier to driving a vehicle. ?? Speech and language: A consultation with a speech and language pathologist is recommended to further evaluate language difficulties including word reading, fluency, word retrieval, and picture naming. ?? Occupational therapy: A consultation with occupational therapy is recommended to establish helpful strategies for more efficient and reliable performance in the workplace. Referrals for outpatientoccupational therapy at the [facility] can be made by contacting [phone]. ?? Emotional Support: Continued supportive counseling is recommended. ?? Cognitive strategies: ? Use a notebook, white board, or audio recording to set daily goals. Goals should be attainable without excess physical and mental exhaustion. ? Schedule time for breaks throughout the day. This will reduce mental fatigue and agitation. ? Focus on one task at a time. ? For complex and multi-step tasks write out a list before initiating the tasks that includes all materials needed and the steps to complete the task efficiently. ? Prepare all things in advance when possible. Procrastination can lead to forgetfulness, confusion, and increased error susceptibility. ? Linking behaviors that naturally go together (e.g., taking medications with meals) may improve reliability and consistency in daily tasks. ? Minimize distractions (e.g, TV, radio, phone) when communicating with others or working on tasks. ? Create reminders (e.g., notepad by the phone, use of Post-It notes, on a dry erase board set up in a central location in the home). ? Set alarms (e.g., phone) for important events (e.g., to take medications, daily tasks, birthdays). ? Establish a central location (e.g., a large bowl placed on an entryway table) where these items (e.g., keys, wallet) are always placed. ?? Alternative interventions: Deep breathing exercises, meditation, and yoga are helpful alternative therapies that can improve mood, sleep, and mental clarity. Several smartphone applications are available and can be practiced at home for convenience. ?? Cognitive exercises: Engaging in cognitively stimulating tasks help keep the brain active and alert. Beneficial brain activities include puzzles, reading, sodoku, crossword puzzles, and adult coloring books to name a few. ?? Lifestyle: Proper nutrition and physically active lifestyle as medically approved and tolerated can improve daily functioning. A well balanced and nutritious diet minimizing processed foods has been show to positively affect mood, sleep, and cognitive functioning. Maintaining social relationships can positively impact mood and offer cognitive stimulation. Diagnosis R41.3 F32.9 F41.9 Plan Ms. Lujan will follow-up with Dr. Quezada. Results and recommendations will be discussed by telephone. Should additional questions or concerns arise, this service can be contacted at [phone]. Billing Neurobehavioral Status Exam Total time= 76 [place] [address] by neuropsychologist) Test Evaluation Services Total time= 149 minutes [place] [address]113 [place]) of 83615 by neuropsychologist) Test Administration and Scoring Total time= 69 minutes ([place] 37968 [place] [address]6501 by neuropsychologist) Total time= 238 minutes ([place] 76157 [place]) of 84660 by manager fixed income) Amber Andersen, Ph.D. Psychologist-Doctorate documented in this encounter Plan of Treatment Not on file documented as of this encounter Visit Diagnoses Diagnosis Memory loss- Primary Depression, unspecified depression type Anxiety Anxiety state, unspecified documented in this encounter Care Teams Street Vendor Relationship Specialty Start Date End Date Aria Thompson MD [address] [place] [address] PCP - General 12/03/17 documented as of this encounter
--- OUTSIDE RECORDS SUMMARY | 2024-03-19 02:03 | XMS_ITS | Encounter Summary ---
Author Organization [facility] Address [address] [place] [address] Care Team Providers Care Answering Service Agent Name Role Phone Aria Thompson MD Primary Care Provider Encounter Details Date Type Department Care Team (Late st Contact Info) Description 06/29/2020 Results Only [facility] End[facility] [address] [place] [address] Joanne Sotomayor MD [address] [facility] [address] [place] [address] Social History Tobacco Use Types Packs/Day Years [...] Procedure Name Priority Date/Time Associated Diagnosis Comments CYTOLOGY (NON-GYNECOLOGIC INCLUDING FLUIDS AND FINE NEEDLE ASPIRATION)- ORDER ONLY Routine 06/29/2020 documented in this encounter Results * CYTOLOGY (NON-GYNECOLOGIC INCLUDING FLUIDS AND FINE NEEDLE ASPIRATION)- ORDER ONLY (06/29/2020) 06/29/2020 07/01/2020 7:3 2 EST Narrative [facility] - 07/01/2020 17:06 EST ----- ------- Name: SKYLA LONDONO ? : 56 ?Age/Sex: 59/F ?Unit#: [id number] ? Loc: LAB.OPX ? Status: REG REF ?? Reg Date: 06/30/20 ? Pt.Phone Number: ? ----- ------- Specimen: [id number] ? STATUS: SOUT ?Spec Date:06/29/20 ? Physician Copies: ?Joanne Valdes Tissues: A ?? THYROID FNA (LEFT) ? Aria Thompson CPT: 35522 ?? Units: ??1 ----- ------- ?? NON METALLURGICAL TESTER CYTOLOGY DIAGNOSIS THYROID, LEFT, ULTRASOUND GUIDED FINE NEEDLE ASPIRATION; - Consistent with benign follicular nodule. ??See comment. Comment: The specimen is hypocellular but does show an adequate number of follicular groups with bland appearance. ??Abundant watery colloid and scattered siderophages are noted in the background. ??Findings are consistent with a benign thyroid nodule. ??Correlation with the clinical and radiographic impressions is recommended. ----- ------- ? SPECIMEN DESCRIPTION ? 6 fixed prepared slides and 1 tube of Cytolyt were received and ?? processed by selective enhancement technique. Thyroseq vial was ?? also collected. Signed ____(signature on file)____ Keisha Garcia M.D. 07/01/20 By the signature above, the attending physician certifies that he/she has personally conducted a gross and/or microscopic examination of the described specimens and rendered or confirmed the above diagnosis. Test Performed by [facility], [address] [facility] [address] Information Management Officer: Keisha Garcia MD PHD ----- ------- Joanne Sotomayor MD PATHOLOGY ORDERABLES [facility] [address] [place] [address] documented in this encounter Visit Diagnoses Not on filedocumented in this encounter Care Teams Answering Service Agent Relationship Specialty Start Date End Date Aria Thompson MD [address] [place], [place] [address] PCP - General 12/03/17 documented as of this encounter
--- OUTSIDE RECORDS SUMMARY | 2024-03-19 02:03 | XMS_ITS | Encounter Summary ---
Author Organization [facility] [place] Address [address] [place] [address] Care Team Providers Care Deputy Harbormaster Name Role Phone Aria Thompson MD Primary Care Provider Reason for Referral * Prior Authorization (Routine) - Closed Specialty Diagnoses / Procedures Referred By Merari rosario Referred To Contact Psychology Diagnoses Memory loss Seizures (HCC-CMS) Marleny Quezada MD [address] [place] [address] [facility] [address] [place] [id number] Referral ID Status Reason Start Date Expiration Date V isits Requested Visits Authorized [id number] Closed Specialty Services Required 10/29/2018 1 1 Question Answer Reason for Request: worsening subjective memory, noticeable at work Can the patient act on his/her own behalf? If no, provide contact information below. Yes Name, Address and Phone Number of Restaurant Operations Manager (Other than the Patient) to be Contacted for Appointment Confirmation and Other Questions: see PRISM * Consult (Routine) - Specialty Report Received Specialty Diagnoses / Procedures Referred By Merari rosario Referred To Contact Osteoporosis Diagnoses Osteoporosis, unspecified osteoporosis type, unspecified pathological fracture presence Marleny Quezada MD [address] [place] [address] [facility] [address] [place] [address] Referral ID Status Reason Start Date Expiration Date Visits Requested Visits Authorized [id number] Specialty Report Received Specialty Services Required 10/29/2018 1 1 Question Answer Reason for Request: osteoporosis Reason for Visit * Reason Comments Follow-up Encounter Details Date Type Department Care Team (Late st Contact Info) Description 10/29/2018 10:30 EST Office Visit [facility] [address] [place], [place] [phone] Marleny Quezada MD [address] [place] [phone] Seizures ([facility]) (Primary Dx); Osteoporosis, unspecified osteoporosis type, unspecified pathological fracture presence; Memory loss Discharge Disposition: Auto Discharge Social History Tobacco Use Types Packs/Day Years [...] Yes 02/18/2018 documented as of this encounter Discharge Disposition Disposition Code Departure Means Destination Auto Discharge documented in this encounter Progress Notes * Marleny Quezada MD, MD - 10/29/2018 1030 EST .[facility] ?? FOLLOW UP - 10/29/2018 ? CHIEF COMPLAINT: Seizures, memory loss. ?? INTERVALHISTORY: This is a W/C related visit as far as I understand. Elsa is a 58-year-old female with a history of epilepsy, previously well controlled, but of undefined etiology, on single-agent brand Trileptal with a subjective description of worsening of her spells ever since a work-related injury in September of last year. Plan was to maintain her on her current Trileptal as things seemed toeven out. We did discuss osteopenia on chronic Trileptal therapy as she had not responded to lamotrigine. She did not do well on generics. I had last seen her in May. She returns alone. Headaches and the prior right arm symptoms do not appear to be issues. She has had Duplex studies and an EMG of the right arm., both clinically of no significance. ? She continues on the current dose of Trileptal. She had a DEXA scan and returns to discuss the results. From what I can understand she has not had an obvious seizure but appears to have a premonition. When she established care with me it appeared that she was doing better. She does do better on Brand Trileptal and has not been successful with lamotrigine. On a side note, she reports cognitive issues. This has been noticeable for the last few months. It does not appear to be getting worse but is noticeable. She is still able to work but due to the number of medical visits and active medical issues a letter was written on her behalf by her PCP to keepher days to 4 days a week. She has not had any accidents. Short term recall is something that appears to be bothering her and she appears, at least to me, visibly upset about this. Trouble recalling new things, what she has done earlier in the day, repetitive. PAST MEDICAL AND SURGICAL HISTORY: Epilepsy, headaches, right arm pain, section. ?? MEDICATIONS: Trileptal brand 300 mg 4 times daily. Vitamin D. ?? ALLERGIES: SULFA. ?? FAMILY HISTORY: Dad, bladder cancer. Mom , COPD. One son, diabetes. ?? SOCIAL HISTORY: Former smoker, rarely drinks alcohol. ?? REVIEW OF SYSTEMS: A 14-point review of systems identified with the patient. Aside from the above, all other systems are reviewed and negative. ?? PHYSICAL EXAM: On the MOCA she scores 26/30 today. She has trouble with the trial, reciting a sequence of numbers backward, cannot name more than 11 words that begin with the letter B and she scores 4/5 for delayed recall with some trouble during registration. Grossly, she appears awake, alert and attentive and fully conversation. No obvious facial asymmetryand she is able to stand, walk up and down a flight of stairs with no difficulty. IMAGING: Bone density scan 09/17/2018 at [facility]: osteoporosis of lumbar spine and osteopenia of left hip. MRI Brain 08/09/2017 with non specific white matter changes. LABS: No recent labs available. EMG: April 2018- The electrodiagnostic study was normal today which is reassuring. There is no need for further neurological investigations unless there is change in symptoms. EEG: April 2018, 72 hour ambulatory and baseline studies at [facility] Impression: Abnormal ambulatory monitoring study with left temporal slow. ?? Clinical Correlation: Findings suggest an area of dysfunction in the left temporal area. There is no epileptiform activity in this study. ?? ASSESSMENT AND PLAN: Elsa is a 58-year-old female with a history of previously diagnosed epilepsy,previously well controlled, but of undefined etiology on single-agent brand Trileptal with a subjective description of worsening of her events ever since a work-related injury in September of last year. She has been doing better and remains seizure free on her current regimen. She reports probable premonitory symptoms but nothing that appears convincing to me for breakthrough seizures. I spent much time discussing the results of her DEXA scan and that this may be related to the chronic use of Trileptal. We talked about the fact that ideally we ought to transition to another agent such as Keppra. She is obviously anxious about making a transition. Option is to continue on it and intensify herbone strengthening regimen, which I do not support fully, or transition to another agent. We can discuss this once she sees the folks at the Osteoporosis clinic. Her other main concern today is her appreciation of worsening amnestic difficulty. She scores 26/30on the MOCA today which I suspect is not truly reflective of her potential. Having said that, I think it is reasonable to pursue some labs and have her obtain a more formal neurocognitive evaluation and I could see her back after that. She does not have any restrictions on driving at this time. ?? I spent a total of 30 minutes in face to face time with this patient and 25 minutes of that time was spent in disease review, image review, counseling, treatment planning and coordination of care as described in the progress note. documented in this encounter Plan of Treatment Scheduled Referrals Name Type Priority Associated Diagnoses Orde r Schedule AMB CONS/FOLLOW UP [facility]IC Outpatient Referral Routine Osteoporosis, Unspecified Osteoporosis Type, Unspecified Pathological Fracture Presence Ordered: 10/29/2018 AMB CONS/FOLLOW UP [facility] Outpatient Referral Routine Memory Loss Seizures (CMS-HCC) ([facility]) Ordered: 10/29/2018 documented as of this encounter Visit Diagnoses Diagnosis Seizures (HCC-CMS)- Primary Other convulsions Osteoporosis, unspecified osteoporosis type, unspecified pathological fracture presence Memory loss documented in this encounter Care Teams Deputy Harbormaster Relationship Specialty Start Date End Date Aria Thompson MD [address] [place] [address] PCP - General 12/03/17 documented as of this encounter
--- OUTSIDE RECORDS SUMMARY | 2024-03-19 02:03 | XMS_ITS | Encounter Summary ---
Author Organization [facility] Address [address] [place] [address] Care Team Providers Care Senior Android Developer Name Role Phone Aria Thompson MD Primary Care Provider Reason for Visit * Reason Onset Date Comments Other 11/05/2018 Encounter Details Date Type Department Care Team (Late st Contact Info) Description 11/05/2018 Telephone [facility] Neurology - [place] [address] [place], [place] [phone] Marleny Quezada MD [address] [place] [address] Other Social History Tobacco Use Types Packs/Day Years [...] encounter Miscellaneous Notes * Telephone Encounter - Marleny Quezada MD, MD - 11/05/2018 1800 EDT ok * Telephone Encounter - Susy Calloway - 11/05/2018 1613 EDT Patient called to make sure that in your note it says something about billing under workman's comp. documented in this encounter Plan of Treatment Not on file documented as of this encounter Visit Diagnoses Not on filedocumented in this encounter Care Teams Senior Android Developer Relationship Specialty Start Date End Date Aria Thompson MD [address] [place] [address] PCP - General 12/03/17 documented as of this encounter
--- OUTSIDE RECORDS SUMMARY | 2024-03-19 02:03 | XMS_ITS | Encounter Summary ---
Author Organization [facility] Address [address] [place] [address] Care Team Providers Care Employee Services Manager Name Role Phone Aria Thompson MD Primary Care Provider Reason for Visit * Reason Onset Date Comments Medications Refill 11/05/2019 Encounter Details Date Type Department Care Team (Late st Contact Info) Description 11/05/2019 Refill [facility] [address] [place], [place] [phone] Marleny Quezada MD [address] [place] [address] Medications Refill Social History Tobacco Use Types Packs/Day Years [...] Yes 02/18/2018 documented as of this encounter Ordered Prescriptions Prescription Sig Dispensed Refills Start Date End Da te OXcarbazepine (TRILEPTAL) 300 mg tablet Take one tablet by mouth 4x daily BRAND ONLY 360 Tab 3 11/05/2019 11/15/2020 documented in this encounter Plan of Treatment Not on file documented as of this encounter Visit Diagnoses Not on filedocumented in this encounter Discontinued Medications Medication Sig Discontinue Reason Start Date End Da te OXcarbazepine (TRILEPTAL) 300 mg tablet Take one tablet by mouth 4x daily BRAND ONLY Reorder 01/06/2019 11/05/2019 documented as of this encounter Care Teams Employee Services Manager Relationship Specialty Start Date End Date Aria Thompson MD [address] [place] [address] PCP - General 12/03/17 documented as of this encounter
--- OUTSIDE RECORDS SUMMARY | 2024-03-19 02:03 | XMS_ITS | Encounter Summary ---
Author Organization [facility] Address [address] [place] [address] Care Team Providers Care Owner Consulting Engineer Name Role Phone Aria Thompson MD Primary Care Provider Reason for Visit * Reason Onset Date Comments Appointment Related 10/14/2019 Encounter Details Date Type Department Care Team (Late st Contact Info) Description 10/14/2019 Telephone [facility] [address] [place] [address] Amber Mendosa, [address] [facility] [address] [place] [address] Appointment Related Social History Tobacco [...] encounter Miscellaneous Notes * Telephone Encounter - Reno Lux RN - 10/14/2019 8600 EST Office note and fax cover sheet faxed to PCP office as requested * Telephone Encounter - Amber Mendosa DO - 10/14/2019 1443 EST My initial office note mentioned a daily injection (Forteo) or Prolia. Please just resend my officenote to the PCP with a notation on the fax sheet that we recommend Prolia and the patient chose to follow up there. Thanks. * Telephone Encounter - Reno Lux RN - 10/14/2019 1416 EST Spoke with pt who requested that provider send a letter to PCP with her recommendation of Prolia. Routing message to provider. * Telephone Encounter - Amber Mendosa DO - 10/14/2019 1312 EST I asked her to consider Prolia. I'm OK with her following up with her PCP as long as she and the PCP are in agreement. Thanks. * Telephone Encounter - Amber Mendosa DO - 10/14/2019 1159 EST Is she set up for injections there? * Telephone Encounter - Reno Lux RN - 10/14/2019 1156 EST Called and spoke with pt who states she is not sure she needs to be seen on 12/04 as she would like to receive injections for bone loss at PCP office. Pt asked to have provider let her know if she needs to keep appointment. Routing message to provider to advise. * Telephone Encounter - Fabio Lorenzo - 10/14/2019 0946 EST Patient is calling to ask if her 12/[address] Mendosa is only to get a shot for bone loss,and if so, can she have this done by her PCP instead? Please call back. documented in this encounter Plan of Treatment Not on file documented as of this encounter Visit Diagnoses Not on filedocumented in this encounter Care Teams Owner Consulting Engineer Relationship Specialty Start Date End Date Aria Thompson MD [address] [place] [address] PCP - General 12/03/17 documented as of this encounter
--- OUTSIDE RECORDS SUMMARY | 2024-03-19 02:03 | XMS_ITS | Encounter Summary ---
Author Organization [facility] Address [address] [place] [address] Care Team Providers Care Sterile Technician Name Role Phone Aria Thompson MD Primary Care Provider Encounter Details Date Type Department Care Team (Late st Contact Info) Description 03/27/2019 Phlebotomy Only [facility] [address] [place] [address] Lingo Cleaner, Outpatient Other osteoporosis without current pathological fracture (Primary Dx) Social History Tobacco Use Types Packs/Day Years [...] Procedure Name Priority Date/Time Associated Diagnosis Comments VITAMIN D (25,OH) Routine 03/27/2019 16: 02 EDT Other osteoporosis without current pathological fracture PTH INTACT Routine 03/27/2019 16:02 EDT Other osteoporosis without current pathological fracture COMPLETE BLOOD COUNT AND DIFFERENTIAL Routine 03/27/2019 16:02 EDT Other osteoporosis without current pathological fracture TSH Routine 03/27/2019 16:02 EDT Other osteoporosis without current pathological fracture PHOSPHORUS Routine 03/27/2019 16:02 EDT Other osteoporosis without current pathological fracture COMPREHENSIVE METABOLIC PANEL (CMP) Routine 03/27/2019 16:02 EDT Other osteoporosis without current pathological fracture documented in this encounter Results * (ABNORMAL) COMPREHENSIVE METABOLIC PANEL (CMP) (03/27/2019 16:02 EDT) Potassium 4.2 3.5 - 5.0 mEq/L 03/27/2019 17:02 [facility] Sodium 128(L) 136 - 145 mEq/L 03/27/2019 17:02 [facility] Chloride 91(L) 96 - 110 mEq/L 03/27/2019 17:02 [facility] CO2 28 22 - 32 mEq/L 03/27/2019 17:02 [facility] Total Alkaline Phosphatase 87 38 - 126 U/L 03/27/2019 17:02 [facility] Bilirubin, Total <0.5 <1.4 mg/dl 03/27/20 19 17:02 [facility] AST 22 15 - 46 U/L 03/27/2019 17:02 [facility] ALT 24 <53 U/L 03/27/2019 17:02 [facility] Albumin 4.7 3.4 - 4.9 g/dl 03/27/2019 17:02 [facility] Total Protein 7.0 6.3 - 8.2 g/dl 03/27/2019 17:02 [facility] Creatinine 0.59 0.52 - 1.04 mg/dl 03/27/2019 17:02 [facility] GFR, Calculated 100 >60 ml/min/1.7 3m2 03/27/2019 17:02 EDT [facility] Comment: eGFR calculated using CKD-EPI equation for non Americans. Multiply eGFR by 1.16 for Americans. BUN 11 10 - 26 mg/dl 03/27/2019 17:02 EDT [facility] Calcium 9.7 8.5 - 10.5 mg/dl 03/27/2019 17:02 T [facility] Calculated Calcium 9.1 8.5 - 10.5 mg/dl 03/27/2019 17:02 T [facility] Glucose, Serum 96 70 - 100 mg/dl 03/27/2019 17:02 T [facility] Fasting? No 03/27/2019 15:59 T [facility] Blood specimen (specimen) BLOOD SPECIMEN / Unknown 03/27/2019 16:02 EDT 03/27/2019 16:32 EDT Amber Mendosa DO CHEMISTRY & BLOOD GA S ORDERABLES Performing Organization Address [facility] Co de Phone Number [facility] [address] [place] [address] * PTH INTACT (03/27/2019 16:02 EDT) PTH 48 19 - 88 pg/ml 03/28/2019 10:09 EDT [facility] Comment:Reference range base d on normal calcium level. Blood specimen (specimen) BLOOD SPECIMEN / Unknown 03/27/2019 16:02 EDT 03/27/2019 16:32 EDT Amber Mendosa DO CHEMISTRY & BLOOD GA S ORDERABLES [facility] [address] [place] [address] * PHOSPHORUS (03/27/2019 16:02 EDT) Phosphorus 4.2 2.5 - 4.5 mg/dl 03/27/2019 17:02 EDT [facility] Blood specimen (specimen) BLOOD SPECIMEN / Unknown 03/27/2019 16:02 EDT 03/27/2019 16:32 EDT Amber Srinivas Mendosa DO CHEMISTRY & BLOOD GA S ORDERABLES [facility] [address] [place] [address] * (ABNORMAL) COMPLETE BLOOD COUNT AND DIFFERENTIAL (03/27/2019 16:02 EDT) WBC 5.21 4.0 - 12.4 K/cmm 03/27/2019 16:40 [facility] RBC 4.00 3.86 - 5.04 M/cmm 03/27/2019 16:40 [facility] Hemoglobin 12.4 11.6 - 15.2 gm/dl 03/27/2019 16:40 [facility] HCT 35.7 34.9 - 44.4 % 03/27/2019 16:40 [facility] MCV 89 81 - 98 fl 03/27/2019 16:40 [facility] MCH 31.0 26.7 - 33.3 pg 03/27/2019 16:40 [facility] MCHC 34.7 32.1 - 35.9 gm/dl 03/27/2019 16:40 [facility] RDW-CV 13.7 <14.7 % 03/27/2019 16:40 [facility] RDW-SD 45.2 <50.4 fl 03/27/2019 16:40 [facility] PLT 392(H) 141 - 377 K/cmm 03/27/2019 16:40 [facility] MPV 8.7(L) 9.5 - 12.7 fl 03/27/2019 16:40 [facility] % Neutrophils 42.6 % 03/27/2019 16:40 [facility] % Lymphocytes 38.4 % 03/27/2019 16:40 [facility] % Monocytes 13.6 % 03/27/2019 16:40 [facility] % Eosinophils 3.3 % 03/27/2019 16:40 [facility] % Basophils 1.7 % 03/27/2019 16:40 T [facility] % Immature Grans 0.4 % 03/27/2019 16:40 [facility] ABS Neutrophils 2.22 2.20 - 8.85 K/cmm 03/27/2019 16:40 [facility] ABS Lymphs 2.00 1.09 - 3.30 K/cmm 03/27/2019 16:40 T [facility] ABS Monocytes 0.71 0.1 - 0.8 K/cmm 03/27/2019 16:40 [facility] ABS Eosinophils 0.17 0.03 - 0.61 K/cmm 03/27/2019 16:40 [facility] ABS Basophils 0.09 0.01 - 0.11 K/cmm 03/27/2019 16:40 [facility] ABS Immature Grans 0.02 0 - 0.06 K/cmm 03/27/2019 16:40 [facility] Type of Diff: Automated 03/27/2019 16:40 [facility] Blood specimen (specimen) BLOOD SPECIMEN / Unknown 03/27/2019 16:02 EDT 03/27/2019 16:32 EDT Amber Mendosa DO PACKAGES & DNA PROBE ORDERABLES [facility] [address] [place] [address] * VITAMIN D (25,OH) (03/27/2019 16:02 EDT) 25OH Vitamin D Tot 53.2 30 - 100 ng/ml 03/28/2019 12:45 EDT [facility] Comment: Reference Range: Deficient = <10 ng/ml Insufficient = 10-30 ng/ml Sufficient = 30-100 ng/ml Toxic = >100 ng/ml Blood specimen (specimen) BLOOD SPECIMEN / Unknown 03/27/2019 16:02 EDT 03/27/2019 16:32 EDT Amber Mendosa DO CHEMISTRY & BLOOD GA S ORDERABLES Performing Organization Address [facility] Co de Phone Number [facility] [address] [place] [address] * TSH (03/27/2019 16:02 EDT) TSH 2.78 0.47 - 4.68 uIU/ml 03/27/2019 17:33 EDT [facility] Comment: The results of this assay can be falsely lowered due to the consumption of Biotin. Blood specimen (specimen) BLOOD SPECIMEN / Unknown 03/27/2019 16:02 EDT 03/27/2019 16:32 EDT Amber Mendosa DO CHEMISTRY & BLOOD GA S ORDERABLES Performing Organization Address [facility] Co de Phone Number [facility] [address] [place] [address] documented in this encounter Visit Diagnoses Diagnosis Other osteoporosis without current pathological fracture- Primary documented in this encounter Care Teams Sterile Technician Relationship Specialty Start Date End Date Aria Thompson MD [address] [place] [address] PCP - General 12/03/17 documented as of this encounter
--- OUTSIDE RECORDS SUMMARY | 2024-03-19 02:03 | XMS_ITS | Encounter Summary ---
Author Organization [facility] Address [address] [place] [address] Care Team Providers Care Academic Affairs Specialist Name Role Phone Aria Thompson MD Primary Care Provider Reason for Visit * Reason Onset Date Comments Medications Refill 11/15/2020 Encounter Details Date Type Department Care Team (Late st Contact Info) Description 11/15/2020 Refill [facility]rology [facility] [address] [place], [place] [phone] Marleny Quezada MD [address] [place] [address] Medications Refill Social History Tobacco [...] 4x daily BRAND ONLY 120 Tab 11/15/2020 documented in this encounter Miscellaneous Notes * Telephone Encounter - AlvarezstoneKarina - 11/15/2020 1535 EDT Patient called back. Let patient know we received refill request, and that we needed to schedule follow up since it has been since April 2019. She advised she would like referral to [place] [place] [facility], as this is closer to her. I let patient know that she could possibly reach out to her PCP about this referral, and she advised this is not something her PCP would handle. She inquired about just sending referral to [place] for her, and I let her know we would need to schedule a follow up in order to refill her meds since it has been over a year. Patient understood, and advised she would call back to schedule once she is back home and has her calendar available. * Telephone Encounter - Fifi Fitzgerald - 11/15/2020 1507 EDT Pharmacy requesting a refill for Trileptal 300 mgs. One tablet qid Last seen: 05-26-2019 No appointment scheduled. - [facility] to make an appointment. Cell and Home. She wasn't at work. documented in this encounter Plan of Treatment Not on file documented as of this encounter Visit Diagnoses Not on filedocumented in this encounter Discontinued Medications Medication Sig Discontinue Reason Start Date End Da te OXcarbazepine (TRILEPTAL) 300 mg tablet Take one tablet by mouth 4x daily BRAND ONLY Reorder 11/05/2019 11/15/2020 documented as of this encounter Care Teams Academic Affairs Specialist Relationship Specialty Start Date End Date Aria Thompson MD [address] [place] [address] PCP - General 12/03/17 documented as of this encounter
--- OUTSIDE RECORDS SUMMARY | 2024-03-19 02:03 | XMS_ITS | Encounter Summary ---
Author Organization [facility] Address [address] [place] [address] Care Team Providers Care Rug Backing Stenciler Name Role Phone Aria Thompson MD Primary Care Provider Reason for Visit * Reason Onset Date Comments Appointment Related 06/04/2019 Encounter Details Date Type Department Care Team (Late st Contact Info) Description 06/04/2019 Telephone [facility] Speech & Language [address] [place] [address] Macie Goodson, ROBE [address] [place] [address] Appointment Related Social History Tobacco Use Types [...] encounter Miscellaneous Notes * Telephone Encounter - Chantelle Steinberg - 06/04/2019 7917 EDT Spoke with Yancy again, Elsa asked that we leave a phone number, that she remembers that we called previously and will be calling to schedule. I left my direct line to schedule an ICC. Chantelle Steinberg Therapy Activities Coordinator documented in this encounter Plan of Treatment Not on file documented as of this encounter Visit Diagnoses Not on filedocumented in this encounter Care Teams Rug Backing Stenciler Relationship Specialty Start Date End Date Aria Thompson MD [address] [place] [address] PCP - General 12/03/17 documented as of this encounter
--- OUTSIDE RECORDS SUMMARY | 2024-03-19 02:03 | XMS_ITS | Encounter Summary ---
Author Organization [facility] Address [address] [place] [address] Care Team Providers Care Telephonic Case Manager Name Role Phone Aria Thompson MD Primary Care Provider Encounter Details Date Type Department Care Team (Latest Contact Info) Description 03/27/2019 15:54 EDT - 03/27/2019 23:59 EDT Hospital Encounter [facility] [address] [place] [address] Amber Mendosa, DO [address] [facility] [address] [place] [phone] Discharge Disposition: Auto Discharge Social History Tobacco [...] 02/18/2018 documented as of this encounter Discharge Diagnoses Diagnosis M81.8 Other osteoporosis without current pathological fracture-M81.8[ICD-10-CM] documented in this encounter Medications at Time of Discharge Medication Sig Dispensed Refills Start Date End Date cholecalciferol, vitamin D3, (VITAMIN D3 ORAL) Take 2,000 Tabs by mouth daily. mesalamine (CANASA) 1,000 mg suppository INSERT ONE SUPPOSITORY RECTALLY ONCE OR TWICE A DAY 02/04/2018 06/30/2021 OXcarbazepine (TRILEPTAL) 300 mg tablet Take one tablet by mouth 4x daily BRAND ONLY 360 Tab 3 01/06/2019 11/05/2019 documented as of this encounter Discharge Disposition Disposition Code Departure Means Destination Auto Discharge Home documented in this encounter Plan of Treatment Not on file documented as of this encounter Visit Diagnoses Not on filedocumented in this encounter Care Teams Telephonic Case Manager Relationship Specialty Start Date End Date Aria Thompson MD [address] [place] [address] PCP - General 12/03/17 documented as of this encounter
--- OUTSIDE RECORDS SUMMARY | 2024-03-19 02:03 | XMS_ITS | Encounter Summary ---
Author Organization [facility] Address [address] [place] [address] Care Team Providers Care General Internist And Physician Leader Name Role Phone Aria Thompson MD Primary Care Provider Reason for Visit * Reason Onset Date Comments Appointment Related 06/22/2020 Encounter Details Date Type Department Care Team (Late st Contact Info) Description 06/22/2020 Telephone [facility] Endocrinology - [facility] [address] [place] [address] Amber Mendosa DO [address] [facility] [address] [place] [address] Appointment Related Social History Tobacco [...] encounter Miscellaneous Notes * Telephone Encounter - Penny Graves - 06/22/2020 1437 EDT lvm for patient to call and schedule a telehealth visit with Dr. Mendosa within the next month documented in this encounter Plan of Treatment Not on file documented as of this encounter Visit Diagnoses Not on filedocumented in this encounter Care Teams General Internist And Physician Leader Relationship Specialty Start Date End Date Aria Thompson MD [address] [place] [address] PCP - General 12/03/17 documented as of this encounter
--- OUTSIDE RECORDS SUMMARY | 2024-03-19 02:03 | XMS_ITS | Encounter Summary ---
Author Organization [facility] Address [address] [place] [address] Care Team Providers Care Food Runner Name Role Phone Aria Thompson MD Primary Care Provider Encounter Details Date Type Department Care Team (Late st Contact Info) Description 08/08/2022 Lab Requisition [facility] Pathology & Laboratory Medicine - [facility] [address] [place] [address] Everette Varma MD [address] [place] [address] Rash and other nonspecific skin eruption Social History Tobacco Use Types Packs/Day Years [...] Date/Time Associated Diagnosis Comments SURGICAL PATHOLOGY Today 08/07/2022 13 :00 EST Rash and other nonspecific skin eruption documented in this encounter Results * SURGICAL PATHOLOGY (08/07/2022 13:00 EST) Note to Patient The following pathology results have been interpreted by your pathologist and may be available to you before your health provider has had the opportunity to review them. Please allow time for your provider to receive these results and explore management options, if applicable. 08/09/2022 11:08 [facility] Final Diagnosis A. SKIN OF BACK, MID, PUNCH BIOPSY: - Superficial perivascular dermatitis with eosinophils and foci of ulceration. See microscopic and comment. 08/09/2022 11:08 [facility] Diagnosis Comment The biopsy shows evidence of excoriation. Within the dermis is an underlying inflammatory infiltrate which includes lymphomononuclear cells and eosinophils. Also present within the epidermis is focal acantholysis which may be secondary to the excoriation, but also raises transient acantholytic dermatosis ([place]'s disease) as a consideration. A drug-related eruption can not entirely be excluded. There is no evidence of granulomatous inflammation. 08/09/2022 11:08 [facility] Attestation By the signature below, the attending physician certifies that they have 1) personally conducted a gross and/or microscopic examination of the described specimen(s), and/or personally interpreted the results of laboratory testing of the described specimen(s), and 2) personally rendered or confirmed the above diagnosis. 08/09/2022 11:08 [facility] at 1108 Microscopic Description Sections consist of a punch biopsy of skin. There is epidermal ulceration with serum crust. The intact epidermis is relatively unremarkable although foci of acantholysis are noted. Within the dermis is a superficial perivascular lymphomononuclear infiltrate with rare eosinophils. 08/09/2022 11:08 [facility] Clinical History Skin rash in the setting of ulcerative colitis; drug rash vs. dermatologic manifestations of IBD; clinical diagnosis code: R21 08/09/2022 11:08 EST [facility] Gross Description A. Received in formalin labelled with proper patient identification (initials B, E) and punch biopsy skin of mid back with maculopapular rash is a mottled ocrea-white and corea skin punch biopsy measuring 0.6 x 0.4 cm and excised to a depth of 0.4 cm. Bisected and submitted entirely in A1. KATE WELLER(ASCP) 08/08/2022 19:10 08/09/2022 11:08 EST [facility] Performing Lab [facility] 08/09/2022 11:08 [facility] Scanned Images 08/09/2022 11:08 [facility] Tissue TISSUE SPECIMEN FROM SKIN / Unknown 08/07/2022 13:00 EST 08/08/2022 17:22 EST Everette Varma MD PATHOLOGY JOHANNY GUERRA Performing Organization Address City/State/[facility] Co de Phone Number [facility] [address] [place] [address] documented in this encounter Visit Diagnoses Diagnosis Rash and other nonspecific skin eruption documented in this encounter Care Teams Food Runner Relationship Specialty Start Date End Date Aria Thompson MD [address] [place] [address] PCP - General 12/03/17 documented as of this encounter
--- OUTSIDE RECORDS SUMMARY | 2024-03-19 02:03 | XMS_ITS | Encounter Summary ---
Author Organization [facility] Address [address] [place] [address] Care Team Providers Care Health Assistant Name Role Phone Aria Thompson MD Primary Care Provider Reason for Visit * Reason Comments Follow-up nodule and ultrasoun d Encounter Details Date Type Department Care Team (Late st Contact Info) Description 06/30/2021 9:30 EDT Office Visit [facility] Endocrinology [address] [place] [address] Joanne Sotomayor MD [address] [facility] [address] [place] [address] Multinodular non-toxic goiter (Primary Dx) Social History Tobacco Use Types [...] on file documented as of this encounter Last Filed Vital Signs Vital Sign Reading Time Taken Comments Blood Pressure 128/82 06/30/2021 0908 EDT Pulse 70 06/30/2021 0908 EDT Temperature - - Respiratory Rate - - Oxygen Saturation - - Inhaled Oxygen Concentration - - Weight 69.9 kg (154 lb) 06/30/2021 0908 EDT Height 157.5 cm (5' 2) 06/30/2021 0908 EDT Body Mass Index 28.17 06/30/2021 0908 EDT documented in this encounter Functional Status Functional Status Response [...] Yes 02/18/2018 documented as of this encounter Patient Instructions * Patient Instructions* Joanne Gunn MD - 06/30/2021 9:30 EDT ETHANOL (ALCOHOL) ABLATION OF THYROID NODULE documented in this encounter Progress Notes * Jeannette Corona RN - 06/30/2021 0930 EDT Goiter [place] ordered Letter mailed * Joanne Gunn MD - 06/30/2021 0930 EDT Images from the original note were not included. 06/30/2021 FOLLOW-UP PATIENT: Elsa Lujan CHIEF COMPLAINT Follow-up (nodule and ultrasound ) HISTORY OF PRESENT ILLNESS Elsa Lujan is a very pleasant 60 y.o. female who presents for follow up for thyroid nodule. Last seen in May. Biopsy of left nodule was done in Jun and was benign, this nodule was biopsied also in 2017with benign results. TSH 2.2 uIU/mL. She feels nodule has grown. Feels she is clearing throat constantly and is coughing. PRIOR HX (May) MEDICAL HISTORY Patient has a past medical history of H/O absence seizures (1998). SURGICAL HISTORY Patient has a past surgical history that includes EMG/Nerve Conduction Study (05/27/2018). MEDICATIONS Patient has a current medication list which includes the following prescription(s): cholecalciferol(vitamin d3), guaiatussin ac, hydrocortisone acetate, lialda, mesalamine, ondansetron, and oxcarbazepine. ALLERGIES Patient is allergic to sulfa (sulfonamide antibiotics). FAMILY HISTORY Patient's family history is not on file. SOCIAL HISTORY Patient reports that she has quit smoking. Her smoking use included cigarettes. She has a 2.50 pack-year smoking history. She has never used smokeless tobacco. She reports previous alcohol use. She reports that she does not use drugs. REVIEW OF SYSTEMS Review of Systems Stated above DIAGNOSTIC DATA Prior endo note Prior US Labs Thyroid ultrasound procedure Comparison: 2020 Indication: follow-up thyroid nodules Physician performing: Dr. Sotomayor Report Multiple real-time longitudinal and transverse images were obtained using a high-resolution ultrasound with a linear transducer. The thyroid gland appears heterogeneous in texture. Right lobe: Sagittal 3.6 cm x AP 1.6 cm x transverse 1.0 cm. Isthmus: 0.3 cm in AP dimension. Left lobe: Sagittal 5.0 cm x AP 1.9 cm x transverse 2.4 cm. Nodule 1: There is a superior-mid left nodule, regular borders, mix with a anechoic center , size: Sagittal 2.2 cm x AP 1.6 cm x transverse 1.7 cm. Flow 2+. Smaller than 2020. Impression Dominant left thyroid nodule, smaller than 2020, biopsied twice. Electronically signed by Joanne Luna MD VITALS height is 157.5 cm (62) and weight is 69.9 kg (154 lb). Her blood pressure is 128/82 and her pulseis 70. PHYSICAL EXAM Vitals reviewed.Vitals reviewed. Constitutional: Appearance: Normal appearance. Neck: Comments: Mild nodularity in the left lobe of thyroid Cardiovascular: Rate and Rhythm: Normal rate. Pulmonary: Effort: Pulmonary effort is normal. Musculoskeletal: Cervical back: Neck supple. No rigidity. Lymphadenopathy: Cervical: No cervical adenopathy. Neurological: Mental Status: She is alert. ASSESSMENT ICD-10-CM ICD-9-CM 1. Multinodular non-toxic goiter E04.2 241.1 Left thyroid nodule stable compared to 2020, smaller. Thyroid function remains normal. She says feels pressure, I wonder if she can benefit from alcohol ablation, she will call endo and ENT at [facility] and ask if they perform that procedure and if she finds someone, will send referral. Otherwise, will see her back in a year, will do US in office and TSH prior to visit. Electronicaly signed by: Joanne Luna MD I spent a total of 30 minutes on the date of this encounter meeting with the patient and reviewing documentation/coordinating care as described in the above note. This was separate from any procedures performed at the time of the visit. documented in this encounter Plan of Treatment Not on file documented as of this encounter Visit Diagnoses Diagnosis Multinodular non-toxic goiter- Primary Nontoxic multinodular goiter documented in this encounter Discontinued Medications Medication Sig Discontinue Reason Start Date End Da te GUAIATUSSIN AC 10-100 mg/5 mL liquid TAKE 10 ML NEEDED EVERY 4 HOURS FOR 7 DAYS Therapy completed 05/06/2020 06/30/2021 ondansetron (ZOFRAN) 4 mg tablet TAKE 1 TABLET BY MOUTH EVERY 8 HOURS FOR 10 DAYS Therapy completed 05/06/2020 06/30/2021 mesalamine (CANASA) 1,000 mg suppository INSERT ONE SUPPOSITORY RECTALLY ONCE OR TWICE A DAY Therapy completed 02/04/2018 06/30/2021 Hydrocortisone Acetate 30 mg suppository INSERT ONE SUPPOSITORY RECTALLY TWICE A DAY Therapy completed 05/25/2020 06/30/2021 documented as of this encounter Historical Medications * This list may reflect changes made after this encounter. Medication Sig Dispensed Refills Start Date End Date LIALDA 1.2 gram EC tablet TAKE 4 TABLETS BY MOUTH EVERY MORNING 06/16/2021 added in this encounter Care Teams Health Assistant Relationship Specialty Start Date End Date Aria Thompson MD [address] [place] [address] PCP - General 12/03/17 documented as of this encounter
--- OUTSIDE RECORDS SUMMARY | 2024-03-19 02:03 | XMS_ITS | Encounter Summary ---
Author Organization [facility] Address [address] [place] [address] Care Team Providers Care Economic Consultant Name Role Phone Aria Thompson MD Primary Care Provider Reason for Visit * Reason Onset Date Comments Follow-up 05/30/2019 Encounter Details Date Type Department Care Team (Late st Contact Info) Description 05/30/2019 Telephone [facility] Medical Psychology - [address] [address] Amber Andersen, PhD [facility] [phone] Follow-up Social History Tobacco Use Types Packs/Day Years [...] encounter Miscellaneous Notes * Telephone Encounter - Ganesh Phd, Amber Menendez, PhD - 05/30/2019 1141 EDT Ms. Lujan contacted this provider to make some clarifications regarding information contained in herreported. This was discussed with Ms. Lujan and appropriate amendments were made. She was encouragedto contact our service with future concerns at [phone]. documented in this encounter Plan of Treatment Not on file documented as of this encounter Visit Diagnoses Not on filedocumented in this encounter Care Teams Economic Consultant Relationship Specialty Start Date End Date Aria Thompson MD [address] [place] [address] PCP - General 12/03/17 documented as of this encounter
--- OUTSIDE RECORDS SUMMARY | 2024-03-19 02:03 | XMS_ITS | Encounter Summary ---
Author Organization [facility] Address [address] [place] [address] Care Team Providers Care Chute Puller Name Role Phone Aria Thompson MD Primary Care Provider Encounter Details Date Type Department Care Team (Late st Contact Info) Description 06/27/2018 Results Only Imaging [facility] [phone] Unknown, Provider, Social History Tobacco Use Types [...] Associated Diagnoses Date /Time OUTSIDE IMAGES - MR NEURO Imaging 06/27/2018 13:01 EDT documented as of this encounter Visit Diagnoses Not on filedocumented in this encounter Care Teams Chute Puller Relationship Specialty Start Date End Date Aria Thompson MD [address] [place] [address] PCP - General 12/03/17 documented as of this encounter
--- OUTSIDE RECORDS SUMMARY | 2024-03-19 02:03 | XMS_ITS | Encounter Summary ---
Author Organization [facility] Address [address] [place] [address] Care Team Providers Care Pilot Can Router Name Role Phone Aria Thompson MD Primary Care Provider Reason for Visit * Reason Onset Date Comments Appointment Related 04/29/2020 Bumped Encounter Details Date Type Department Care Team (Late st Contact Info) Description 04/29/2020 Telephone [facility] Endocrinology - [facility] [address] [place] [address] Amber Mendosa DO [address] [facility] [address] [place] [address] Appointment Related (Bumped) Social History Tobacco Use Types Packs/Day Years [...] encounter Miscellaneous Notes * Telephone Encounter - Ted Alejo - 04/29/2020 1048 EDT Spoke with patient and she lmk that she was currently away from her calendar and would call us backMonday to reschedule. Gave our number for callback. documented in this encounter Plan of Treatment Not on file documented as of this encounter Visit Diagnoses Not on filedocumented in this encounter Care Teams Pilot Can Router Relationship Specialty Start Date End Date Aria Thompson MD [address] [place] [address] PCP - General 12/03/17 documented as of this encounter
--- OUTSIDE RECORDS SUMMARY | 2024-03-19 02:03 | XMS_ITS | Encounter Summary ---
Author Organization [facility] Address [address] [place] [address] Care Team Providers Care Rug Touch Up Painter Name Role Phone Aria Thompson MD Primary Care Provider Reason for Visit * Reason Comments Biopsy Encounter Details Date Type Department Care Team (Latest Contact Info) Description 06/30/2020 11:30 EST Procedure visit [facility] Endocrinology [address] [place], [place] [id number] Joanne Sotomayor MD [address] [facility] [address] [place] [address] Nontoxic multinodular goiter (Primary Dx) Social History Tobacco Use [...] as of this encounter Progress Notes * Joanne Gunn MD - 06/30/2020 1130 EST Due to computer system disruption, additional clinical information for this visit is Scanned Note. For patients, please refer to guidance in GeoOPt on how to locate information. Generally this information will appear as a scanned documents saved in My Documents activity. Patient was seen for biopsy. documented in this encounter Plan of Treatment Not on file documented as of this encounter Visit Diagnoses Diagnosis Nontoxic multinodular goiter- Primary documented in this encounter Care Teams Rug Touch Up Painter Relationship Specialty Start Date End Date Aria Thompson MD [address] [place] [address] PCP - General 12/03/17 documented as of this encounter
--- OUTSIDE RECORDS SUMMARY | 2024-03-19 02:03 | XMS_ITS | Encounter Summary ---
Author Organization [facility] Address [address] [place] [address] Care Team Providers Care Filling Machine Set Up Mechanic Name Role Phone Aria Thompson MD Primary Care Provider Reason for Visit * Reason Comments Thyroid Problem consult on thyroid n odules Encounter Details Date Type Department Care Team (Late st Contact Info) Description 06/23/2020 14:00 EDT Office Visit [facility] Endocrinology [address] [place] [address] Joanne Sotomayor MD [address] [facility] [address] [place] [address] Nontoxic multinodular goiter (Primary Dx) [...] as of this encounter Progress Notes * Vanita Boykin RN - 06/23/[address] 2017 * Joanne Gunn MD - 06/23/2020 1400 EDT Due to computer system disruption, additional clinical information for this visit is Scanned Note. For patients, please refer to guidance in Linktone on how to locate information. Generally this information will appear as a scanned documents saved in My Documents activity. In summary She was seen for MNG, nodule grew, recommendation FNA of 2.8 left thyroid nodule. US and labs reviewed. Joanne Luna MD 08/06/2020 9:39 documented in this encounter Plan of Treatment Not on file documented as of this encounter Visit Diagnoses Diagnosis Nontoxic multinodular goiter- Primary documented in this encounter Historical Medications * This list may reflect changes made after this encounter. Medication Sig Dispensed Refills Start Date End Date GUAIATUSSIN AC 10-100 mg/5 mL liquid TAKE 10 ML NEEDED EVERY 4 HOURS FOR 7 DAYS 05/06/2020 06/30/2021 Hydrocortisone Acetate 30 mg suppository INSERT ONE SUPPOSITORY RECTALLY TWICE A DAY 05/25/2020 06/30/2021 ondansetron (ZOFRAN) 4 mg tablet TAKE 1 TABLET BY MOUTH EVERY 8 HOURS FOR 10 DAYS 05/06/2020 06/30/2021 mesalamine (CANASA) 1,000 mg suppository INSERT ONE SUPPOSITORY RECTALLY ONCE OR TWICE A DAY 02/04/2018 06/30/2021 added in this encounter Care Teams Filling Machine Set Up Mechanic Relationship Specialty Start Date End Date Aria Thompson MD [address] [place] [address] PCP - General 12/03/17 documented as of this encounter
--- OUTSIDE RECORDS SUMMARY | 2024-03-19 02:03 | XMS_ITS | Encounter Summary ---
Author Organization [facility] Address [address] [place] [address] Care Team Providers Care Nba Player Name Role Phone Aria Thompson MD Primary Care Provider Encounter Details Date Type Department Care Team (Late st Contact Info) Description 08/04/[address] [facility] Pathology & Laboratory Medicine - [address] [address] Derrick Mir MD [address] [place] [address] Ulcerative (chronic) pancolitis with rectal bleeding (HCC) Social History Tobacco Use Types Packs/Day Years [...] Date/Time Associated Diagnosis Comments SURGICAL PATHOLOGY Today 08/03/2021 11 :56 EST Ulcerative (chronic) pancolitis with rectal bleeding (HCC) documented in this encounter Results * SURGICAL PATHOLOGY (08/03/2021 11:56 EST) Note to Patient The following pathology results have been interpreted by your pathologist and may be available to you before your health provider has had the opportunity to review them. Please allow time for your provider to receive these results and explore management options, if applicable. 08/05/2021 16:46 [facility] Final Diagnosis A. COLON, CECUM, BIOPSY: - Colonic mucosa with no significant diagnostic abnormality. - Negative for dysplasia. B. COLON, ASCENDING, BIOPSY: - Colonic mucosa with no significant diagnostic abnormality. - Negative for dysplasia. C. COLON, TRANSVERSE, BIOPSY: - Colonic mucosa with no significant diagnostic abnormality. - Negative for dysplasia. D. COLON, DESCENDING, BIOPSY: - Colonic mucosa with no significant diagnostic abnormality. - Negative for dysplasia. E. COLON, SIGMOID, BIOPSY: - Colonic mucosa with minimal activity. - Negative for dysplasia. F. COLON, SIGMOID, DISTAL, BIOPSY: - Moderately active chronic colitis. - Negative for dysplasia. G. RECTUM, BIOPSY: - Colonic mucosa with mild activity. - Negative for dysplasia. 08/05/2021 16:46 [facility] Attestation By the signature below, the attending physician certifies that they have 1) personally conducted a gross and/or microscopic examination of the described specimen(s), and/or personally interpreted the results of laboratory testing of the described specimen(s), and 2) personally rendered or confirmed the above diagnosis. 08/05/2021 16:46 [facility] at 1646 Clinical History History of ulcerative colitis; clinical diagnosis code: K51.011 08/05/2021 16:46 [facility] Gross Description A. Received in formalin labelled with proper patient identification (initials B, E) and cecal bx is a 0.3 x 0.1 x 0.1 cm light corea tissue. Submitted intact in A1. B. Received in formalin labelled with proper patient identification (initials B, E) and ascending colon is a 0.3 x 0.2 x 0.1 cm light corea tissue. Submitted intact in B1. C. Received in formalin labelled with proper patient identification (initials B, E) and transverse colon is a light corea tissue measuring 0.4 x 0.1 x 0.1 cm. Submitted intact in C1. D. Received in formalin labelled with proper patient identification (initials B, E) and descending colon is a light corea tissue measuring 0.2 x 0.2 x 0.2 cm. Submitted intact in D1. E. Received in formalin labelled with proper patient identification (initials B, E) and sigmoid colon bx is a light corea tissue measuring 0.5 x 0.1 x 0.1 cm. Submitted intact in E1. F. Received in formalin labelled with proper patient identification (initials B, E) and distal sigmoid colon bx is a light corea tissue measuring 0.2 x 0.2 x 0.1 cm. Submitted intact in F1. G. Received in formalin labelled with proper patient identification (initials B, E) and rectum bx is a light corea tissue measuring 0.3 x 0.2 x 0.2 cm. Submitted intact in G1. KATE WELLER(ASCP) 08/04/2021 19:52 08/05/2021 16:46 [facility] Performing Lab [facility] 08/05/2021 16:46 [facility] Scanned Images 08/05/2021 16:46 [facility] Tissue SPECIMEN FROM RECTUM / Unknown 08/03/2021 11:56 EST 08/04/2021 18:09 EST Tissue specimen (specimen) ASCENDING COLON STRUCTURE / Unknown 08/03/2021 11:56 EST 08/04/2021 18:09 EST Tissue specimen (specimen) TRANSVERSE COLON STRUCTURE / Unknown 08/03/2021 11:56 EST 08/04/2021 18:09 EST Tissue specimen (specimen) DESCENDING COLON STRUCTURE / Unknown 08/03/2021 11:56 EST 08/04/2021 18:09 EST Tissue specimen (specimen) SIGMOID COLON STRUCTURE / Unknown 08/03/2021 11:56 EST 08/04/2021 18:09 EST Tissue specimen (specimen) SIGMOID COLON STRUCTURE / Unknown 08/03/2021 11:56 EST 08/04/2021 18:09 EST Tissue specimen (specimen) SPECIMEN FROM RECTUM / Unknown 08/03/2021 11:56 EST 08/04/2021 18:09 EST Derrick Mir MD PATHOLOGY ORD ERABLES [facility] [address] [place] [address] documented in this encounter Visit Diagnoses Diagnosis Ulcerative (chronic) pancolitis with rectal bleeding (HCC-CMS) documented in this encounter Care Teams Nba Player Relationship Specialty Start Date End Date Aria Thompson MD [address] [place] [address] PCP - General 12/03/17 documented as of this encounter
--- OUTSIDE RECORDS SUMMARY | 2024-03-19 02:03 | XMS_ITS | Encounter Summary ---
Author Organization [facility] Address [address] [place] [address] Care Team Providers Care Student Financial Services Counselor Name Role Phone Aria Thompson MD Primary Care Provider Reason for Visit * Reason Onset Date Comments Appointment Related 11/25/2018 Encounter Details Date Type Department Care Team (Late st Contact Info) Description 11/25/2018 Telephone [facility] Neurology - [facility] [address] [place], [place] [id number] Marleny Quezada MD [address] [place] [address] Appointment Related Social History Tobacco Use Types [...] encounter Miscellaneous Notes * Telephone Encounter - Summer Bland - 11/25/2018 1116 EDT Contacted [facility] and they are contacting pt to reschedule her February appt * Telephone Encounter - Marleny Quezada MD, MD - 11/25/2018 1031 EDT Yes, that would be fine. Most likely after mid March as I may be away. * Telephone Encounter - Summer Bland - 11/25/2018 1007 EDT Pt Called to question the timing of her 03/17 FUR. Pt had appt for Osteo testing for 03/12 and it hasbeen cancelled, pt will not see Dr Mendosa in Osteo until 03/27. Would you like her FUR to be pushed back until after she completes testing and sees Osteo? documented in this encounter Plan of Treatment Not on file documented as of this encounter Visit Diagnoses Not on filedocumented in this encounter Care Teams Student Financial Services Counselor Relationship Specialty Start Date End Date Aria Thompson MD [address] [place] [address] PCP - General 12/03/17 documented as of this encounter
--- OUTSIDE RECORDS SUMMARY | 2024-03-19 02:03 | XMS_ITS | Encounter Summary ---
Author Organization [facility] Address [address] [place] [address] Care Team Providers Care Manager Utilities Name Role Phone Aria Thompson MD Primary Care Provider Encounter Details Date Type Department Care Team (Late st Contact Info) Description 08/31/2023 Lab Requisition [facility] Pathology & Laboratory Medicine - [address] [address] Outr Resulting Lab, Provider Social History Tobacco [...] Procedure Name Priority Date/Time Associated Diagnosis Comments HOLD SST Today 08/31/2023 10:21 EST HEPATITIS C AB W REFLEX TO HCV RNA BY PCR Today 08/31/2023 10:21 EST ALPHA 1 ANTITRYPSIN Today 08/31/2023 1 0:21 EST ANTI NUCLEAR AB (TORRES), IFA Today 08/31/2023 10:21 EST documented in this encounter Results * HOLD SST (08/31/2023 10:21 EST) Hold Hold 08/31/2023 18:46 EST [facility] Blood VENOUS BLOOD / Unknown 08/31/2023 10:21 EST 08/31/2023 17:44 EST Provider Outr Resulting Lab LAB INFO SER VICE AND SUPPORT & PHONE RESULT Performing Organization Address [facility]/ZIP Co de Phone Number [facility] [address] [place] [address] * HEPATITIS C AB W REFLEX TO HCV RNA BY PCR (08/31/2023 10:21 EST) Hep C Antibody Negative Negative 08/31/2023 19:48 EST [facility] Blood VENOUS BLOOD / Unknown 08/31/2023 10:21 EST 08/31/2023 17:44 EST Provider Outr Resulting Lab CHEMISTRY & BLOOD GAS ORDERABLES Performing Organization Address [facility]/ZIP Co de Phone Number [facility] [address] [place] [address] * ALPHA 1 ANTITRYPSIN (08/31/2023 10:21 EST) Alpha 1 Antitrypsin 124 90 - 200 mg/dL 09/03/2023 10:13 EST [facility] Blood VENOUS BLOOD / Unknown 08/31/2023 10:21 EST 08/31/2023 17:44 EST Provider Outr Resulting Lab CHEMISTRY & BLOOD GAS ORDERABLES Performing Organization Address [facility] Co de Phone Number [facility] [address] [place] [address] * (ABNORMAL) ANTI NUCLEAR AB (TORRES), IFA (08/31/2023 10:21 EST) TORRES Interpretation Positive(A) Negative 09/03/2023 15:59 EST [facility] Comment: For titers greater than or equal to 1:160 (except the centromere and nucleolar patterns) it is recommended that specific follow-up autoantibody testing ??(such as for dsDNA and Extractable Nuclear Antigens) be performed on all diffuse and/or speckled patterns NOTE: For add-on testing dsDNA is stable for 7 days refrigerated while Extractable Nuclear Antigens are only stable for 48 hours refrigerated. TORRES Titer and Pattern 1 1:2560 Homogeneous 09/03/2023 15:59 EST [facility] Blood VENOUS BLOOD / Unknown 08/31/2023 10:21 EST 08/31/2023 17:44 EST Narrative [facility] - 09/03/2023 15:59 EST Results were obtained with the INOVA NOVA Lite HEp-2 TORRES Kit by indirect immunofluorescence. Provider Outr Resulting Lab IMMUNOLOGY A ND SEROLOGY ORDERABLES Performing Organization Address [facility] Co de Phone Number [facility] [address] [place] [address] documented in this encounter Visit Diagnoses Not on filedocumented in this encounter Care Teams Manager Utilities Relationship Specialty Start Date End Date Aria Thompson MD [address] [place] [address] PCP - General 12/03/17 documented as of this encounter
--- OUTSIDE RECORDS SUMMARY | 2024-03-19 02:03 | XMS_ITS | Encounter Summary ---
Author Organization [facility] Address [address] [place] [address] Care Team Providers Care New Accounts Banking Representative Name Role Phone Aria Thompson MD Primary Care Provider Reason for Visit * Reason Onset Date Comments Coordination Of Care 10/16/2019 Encounter Details Date Type Department Care Team (Late st Contact Info) Description 10/16/2019 Telephone [facility] Endocrinology - [address] [address] Samantha Alonzo RN Coordination Of Care Social History Tobacco Use Types Packs/Day Years [...] encounter Miscellaneous Notes * Telephone Encounter - Samantha Alonzo RN - 10/16/2019 5763 EST Pt called. She reports that Dr. Lujan has moved and is now practicing at [facility]. . Fax there is [phone]. Confirmed that pt and her PCP are at this location. All paperwork faxed 10/16/21 to fax number above. Pt aware. Patient verbalized understanding. No barriers to learning noted. Samantha Alonzo RN Endocrinology documented in this encounter Plan of Treatment Not on file documented as of this encounter Visit Diagnoses Not on filedocumented in this encounter Care Teams New Accounts Banking Representative Relationship Specialty Start Date End Date Aria Thomspon MD [address] [place] [address] PCP - General 12/03/17 documented as of this encounter
--- OUTSIDE RECORDS SUMMARY | 2024-03-19 02:03 | XMS_ITS | Encounter Summary ---
Author Organization [facility] Address [address] [place] [address] Care Team Providers Care Director [employer] Name Role Phone Aria Thompson MD Primary Care Provider Reason for Visit * Reason Comments New Patient Visit * Consult (Routine) - Specialty Report Received Specialty Diagnoses / Procedures Referred By Merari rosario Referred To Contact Osteoporosis Diagnoses Osteoporosis, unspecified osteoporosis type, unspecified pathological fracture presence Marleny Quezada MD [address] [place] [address] Ep5 Osteoporosis [address] [place] [address] Referral ID Status Reason Start Date Expiration Date Visits Requested Visits Authorized [id number] Specialty Report Received Specialty Services Required 10/29/2018 1 1 Encounter Details Date Type Department Care Team (Late st Contact Info) Description 03/27/2019 15:00 EDT Office Visit [facility] Osteoporosis - Main [place] [address], [place] [id number] Amber Mendosa, DO [address] [place] [address] Other osteoporosis without current pathological fracture (Primary [...] Sign Reading Time Taken Comments Blood Pressure 137/76 03/27/2019 1509 EDT Pulse 67 03/27/2019 1509 EDT Temperature - - Respiratory Rate - - Oxygen Saturation - - Inhaled Oxygen Concentration - - Weight 67.6 kg (149 lb) 03/27/2019 1509 EDT Height 154.9 cm (5' 1) 03/27/2019 1509 EDT Body Mass Index 28.15 03/27/2019 1509 EDT documented in this encounter Functional Status [...] this encounter Patient Instructions * Patient Instructions* Amber Mendosa Do, DO - 03/27/2019 15:00 EDT Look at the website NOF.org Update on medications available to treat osteoporosis We now have more medications than ever before to help prevent bone fractures. And while no medication carries a 100 percent guarantee, studies show that some medications provide a 70 percent reduction in spine fractures and 40-50 percent reduction in hip and other fractures. Selecting the best medication depends upon different factors. Let???s review the options. Osteoporosis: Types of Medications Bisphosphonates Available for more than two decades, we consider bisphosphonates a first line medication for both men and women. They are safe, effective, and tend to be inexpensive. There are oral forms that include alendronate (Fosamax), risedronate (Actonel) and ibandronate (Boniva), taken weekly or monthly. The main side effect is irritation of the esophagus. Other rare side effects include muscle aches, rare eye issues, and bone pain. Avoid such symptoms by taking these medications in a certain way: Take the medication first thing in the morning, either weekly or monthly, on an empty stomach and with a full glass of water. You maynot lie down for the next 30-60 minutes. This gives the medication time to travel into the stomach.We recommend to not take any other food, pills, or drinks, except for water, during that time period. When people follow the instructions, they tolerate the medication well. Some people cannot tolerate oral medications for different reasons, such as indigestion, inability to sit upright to take the medication correctly, esophageal issues, or the effects of a previous GI surgery. In these incidences, an IV or intravenous form of a bisphosphonate is a better choice. There is an IV form of ibandronate (Boniva), given every three months in an office. In 2006, the FDA approved a once annual medication named zoledronic acid (Reclast) for fracture protection. Given in a vein, we bypass the GI tract and limit concerns for absorption or correct ingestion. Most people tolerate IV forms of these medications well. Some may develop an acute phase reaction or ???flu-like?? symptoms for one to two days after the infusion. Symptoms may include a low grade fever and/or muscle aches. Symptoms are usually mild. We ask that people proprerly hydrate for the infusion and perhaps take a Tylenol that morning to lessen the chance of symptoms occurring. Selective Estrogen Receptor Modulators (SERM) Approved for use in postmenopausal women, these medications work on the good estrogen receptors in the body and enhance bone health.The main medication in this class is raloxifene (Evista). Another SERM called basodoxifene comes in a combination pill with a form of estrogen. These medications are in the same family as Tamoxifen, a treatment for breast cancer. Studies show that raloxifene reduces the risk of certain types of breast cancer. It is an oral medication, taken once per day. Most women tolerate this medication well. It may cause hot flashes, so it is not a good choice for women experiencing any hot flash symptoms. A slight increased risk for blood clots make SERMS a poorchoice for women who smoke, or who have any other risk factors for clots. Research also shows that raloxifene reduces vertebral or spine fractures. There is no hip fracture prevention data available at this time. Denosumab (Prolia) Similar to the other medications discussed, Prolia works to stop the cells that break down bone (osteoclasts). It does this in a different way than bisphosphonates or SERMs. By stopping the cells that break down bone, it increases bone density and decreases fracture risk. We administer Prolia under the skin every six months in an office. This medication became availablein 2009, but the company that makes the medication has published ten years of data on its use. Most people tolerate this medication very well. We tend to see good improvements in bone density. We do not recommend that a patient stop taking this medication abruptly as there are reports of patients experiencing spine fractures when then do. To prevent this, we prescribe a different medication when we stop Prolia. Anabolic medications There are two medications available that work on the cells that build bone (osteoblasts), rather than targeting bone breakdown. These medications are Teriparatide (Forteo) and Abaloparatide (Tymlos).Forteo has been available for use for more than ten years. Tymlos became available in 2016. We prescribe these medications to people who have severe osteoporosis or who are at high risk for fracture. We also use these medications in people who may not have tolerated other treatment options.Both anabolic agents come in a pre-filled pen device. The patient administers a daily injection of either medication once per day for two years. There is a reason we prescribe these medications for only two years. Teriparatide was also used on rats when researchers first studied it. Some rats received 30-50 times the amount given to humans. Researchers observed an increase in bone cancer or osteosarcoma. When they discovered this, they stopped the human study at two years. More than 10 years of published data show that teriparatide does not cause osteosarcoma in humans. Yet, we do only use it for two years and cannot use it if a person has other risk factors for osteosarcoma (such as previous radiation treatment for cancer, Paget???s disease of bone). Most people tolerate these medications well. Uncommon side effects include dizziness, palpitations,and transient elevations in calcium levels. Because we only prescribe these medications for two years, a patient needs a different medication afterwards to maintain any gains made in bone density andfracture protection. Newest Medication available with unique mechanism of action Over the spring, the medication romosozumab (Evenity) became FDA approved for the treatmentof severe osteoporosis. This medication is unique in the sense that it is the only medication available that stops the cells that break down bone (bone resorption) and also increases the cells the build bone (anabolic). It is given as a monthly SQ (under the skin) injection every month for one yearin an office. The improvements seen in bone density of the spine and hip in research studies are quite impressive along with its fracture reduction data. Most people tolerate this medication well. There is a warning on this medication that there could be a potential increased risk for cardiovascular events. It is not recommended to be given if a person has had a stroke or heart attack within the past year. For the right person, this medication could be a good choice and would need to followed by a different medication as the effects would wear off once stopped. Medication selection and length of treatment When selecting a medication, we decide not only which choice is best for the patient, but also how long do we want to treat for and what are we trying to achieve. One castro benefit of oral and IV bisphosphonates is that their effectiveness persists after we stop the medication. These medications work at the bone level and stay there for quite some time even whendiscontinued. This is helpful as our goal is not to necessarily give medications indefinitely. We like to perform a ???drug holiday,?? during which we stop medications, with fracture protection persisting for some time afterwards. There are many factors to take into account when choosing a medication: o Cost is always an issue. For people on Medicare, medications given in offices tend to go under Part B rather than Part D. This will then not have any effect on the ???donut hole?? that people haveto think about for Medicare drug costs. o How high a person???s risk for fracture is a big determining factor. For people at high risk, it may be best to start with an anabolic medication or other injectable. o Other considerations include a patient???s kidney function and other medical issues. The bottom line most of all is a person???s own preference. One most feel comfortable with and confident in the medication selected to be agreeable to take it regularly. Fears over rare side effects A big obstacle in the proper treatment of osteoporosis is the concern over very rare side effects. There are reports in the medical literature and media about patients taking anti-resorptive medications (medications that target the cells that break down bone) for a period of time and developing problems. The problems most concerning to patients are atypical femur fractures and osteonecrosis of the jaw. Atypical femur fractures Some people develop fractures in the middle of their femur (thigh bone) after the use of medications such as bisphosphonates and Denosumab. These fractures are very rare and the best estimate is about 1:10,000 patients. Every research evaluation of these fractures reports patients with these fractures who never took any medication for osteoporosis. Some experts in the field believe these atypical fractures may be another type of osteoporotic fracture and some people are just more at risk. Because we have seen an as sociation between long-term use of these medications and these atypical fractures, we do not give them indefinitely. A patient and doctor should engage in regular conversation about how long to take a medication and the next best course of action. The benefit of these medications in preventing typical osteoporotic fractures far outweighs these rare risks. Any medication, including [id number] medications like aspirin, have potential side effects and risks. Osteonecrosis of the Jaw This is an extremely rare potential side effect of anti-resorptive medication use. We make this diagnosis when bone becomes exposed through the gum and does not heal. This is more likely to occur in people receiving high doses of these medications for cancer treatments. Also, people with poor dentition and the use of chemotherapy or steroids are at higher risk. For patients who receive the doses of these medications that we use for osteoporosis, we estimate the incidence of this rare event at between 1:10,000 to 1:100,000. Considering the fact that osteoporotic fractures occur in 1 out of every 2 women over age 50 and 1 in every 5 men, the risks versus benefits is incomparable. We do always ask about dental procedures and regular exams while using these medications. Osteoporotic fractures are unfortunately very common and can be devastating. There are several different safe and effective medications available to help reduce fracture risk. Experts in our field have declared that we are in a ???crisis?? in the treatment of osteoporosis. People decide not to take medications because of concerns of things that are very rare and in the meantime, put themselves at risk for harm from fractures. Amber Mendosa DO, is an associate director of biostatistics and director of the Metabolic Bone Program at the [facility]. documented in this encounter Progress Notes * Amber Mendosa Do, DO - 03/27/2019 1500 EDT The patient was sent here for a consultation by Dr. Quezada for evaluation of osteoporosis. She has not had any fractures. There has been no significant height loss since youth. She takes adequate amounts of calcium and vitamin D daily between her diet and supplements. She denies any history of kidney stones and denies any history of steroid or thyroid hormone use. She has a history of a seizure disorder diagnosed in 1998 and has been on antiseizure medications since that time. She has been seeing a Neurologist, her medications were changed over the past two years. She had a bad fall at work occur two years ago and she sustained a concussion. She has had pain in her right hip and foot since the fall as she landed on this side. She tries to perform some regular weight bearing exercise. She is steady on her feet and does not fall. Her dental exams are up to date. She has never been on a medication for fracture protection. She had a DXA exam performed in 09/14, which showed lumbarspine T-score -3.3, left femoral neck - 2.8, wrist -3.0 and total hip T-score -1.8. She overall feels well in general. She denies any weight changes, chest pain, new palpitations or trouble breathing. She denies any radiation exposure to bone. She has some difficulty swallowing at times, she has seen a specialist for this and no etiology has been determined. She may have PND. She coughs at times at night. Her bowel movements are typically normal. She has colitis. She has a stressful job and has some anxiety at times. She denies any hair or skin changes, muscle weakness or easybruising. Her menses were normal throughout life and ended at a typical menopausal age. The remainder of review of systems is unremarkable. Past medical/surgical history, medications, allergies, family history and social history were reviewed. Her GM had osteoporosis. Her son has T1DM. Physical exam: Patient Vitals for the past 24 hrs: BP Pulse Height Weight 03/27/19 1509 137/76 67 154.9 cm (61) 67.6 kg (149 lb) Gen: well developed, gait steady, pleasant, NAD. HEENT: anicteric sclera, MMM, no abnormal hair or skin changes noted. Neck: supple, no thyromegaly or lymphadenopathy, no JVD. Heart: regular with no murmurs. Lungs: clear bilaterally, no wheeze. Abdomen: soft, normoactive bowel sounds, non tender, non distended. Extremities: No peripheral edema, pulses intact, no tremor of hands. Spine: Non tender, no increased kyphosis. Labs: none recent to review. Assessment/Plan: Osteoporosis. We reviewed the pathophysiology of bone loss and the results of the patient's last DXA in detail. We talked about the importance of proper calcium and vitamin D intake along with weight bearing exercise and fall prevention for bone health. The patient's risk for fracture is high with her low T-scores. We discussed different medication options at this time and their potential side effects. We reviewed the black box warning of osteosarcoma in rats with anabolic agents and the patient has no known contraindication. At this time, she will consider her options and will let me know her decision. I advised the best choice would be either an anabolic agent or Prolia. She will then have a repeat DXA performed in one year on the same machine as her previous to assess her response. She will call sooner with any change in symptoms or concerns. Labs will be tested today including a CMP, phos, PTH, 25OH D level, CBC and TSH. I will contact her with the results. She will return in 6 months. Thank you for allowing me to participate in this patient's care. documented in this encounter Plan of Treatment Not on file documented as of this encounter Results * TSH (03/27/2019 16:02 EDT) TSH 2.78 0.47 - 4.68 uIU/ml 03/27/2019 17:33 EDT [facility] Comment: The results of this assay can be falsely lowered due to the consumption of Biotin. Blood specimen (specimen) BLOOD SPECIMEN / Unknown 03/27/2019 16:02 EDT 03/27/2019 16:32 EDT Amber Mendosa DO CHEMISTRY & BLOOD GA S ORDERABLES [facility] [address] [place] [address] * VITAMIN D (25,OH) (03/27/2019 16:02 EDT) 25OH Vitamin D Tot 53.2 30 - 100 ng/ml 03/28/2019 12:45 T [facility] Comment: Reference Range: Deficient = <10 ng/ml Insufficient = 10-30 ng/ml Sufficient = 30-100 ng/ml Toxic = >100 ng/ml Blood specimen (specimen) BLOOD SPECIMEN / Unknown 03/27/2019 16:02 EDT 03/27/2019 16:32 EDT Amber Mendosa DO CHEMISTRY & BLOOD GA S ORDERABLES [facility] [address] [place] [address] * (ABNORMAL) COMPLETE BLOOD COUNT AND DIFFERENTIAL (03/27/2019 16:02 EDT) WBC 5.21 4.0 - 12.4 K/cmm 03/27/2019 16:40 [facility] RBC 4.00 3.86 - 5.04 M/cmm 03/27/2019 16:40 [facility] Hemoglobin 12.4 11.6 - 15.2 gm/dl 03/27/2019 16:40 [facility] HCT 35.7 34.9 - 44.4 % 03/27/2019 16:40 [facility] MCV 89 81 - 98 fl 03/27/2019 16:40 [facility] MCH 31.0 26.7 - 33.3 pg 03/27/2019 16:40 [facility] MCHC 34.7 32.1 - 35.9 gm/dl 03/27/2019 16:40 [facility] RDW-CV 13.7 <14.7 % 03/27/2019 16:40 [facility] RDW-SD 45.2 <50.4 fl 03/27/2019 16:40 [facility] PLT 392(H) 141 - 377 K/cmm 03/27/2019 16:40 [facility] MPV 8.7(L) 9.5 - 12.7 fl 03/27/2019 16:40 [facility] % Neutrophils 42.6 % 03/27/2019 16:40 [facility] % Lymphocytes 38.4 % 03/27/2019 16:40 [facility] % Monocytes 13.6 % 03/27/2019 16:40 [facility] % Eosinophils 3.3 % 03/27/2019 16:40 [facility] % Basophils 1.7 % 03/27/2019 16:40 [facility] % Immature Grans 0.4 % 03/27/2019 16:40 [facility] ABS Neutrophils 2.22 2.20 - 8.85 K/cmm 03/27/2019 16:40 [facility] ABS Lymphs 2.00 1.09 - 3.30 K/cmm 03/27/2019 16:40 [facility] ABS Monocytes 0.71 0.1 - 0.8 K/cmm 03/27/2019 16:40 [facility] ABS Eosinophils 0.17 0.03 - 0.61 K/cmm 03/27/2019 16:40 [facility] ABS Basophils 0.09 0.01 - 0.11 K/cmm 03/27/2019 16:40 [facility] ABS Immature Grans 0.02 0 - 0.06 K/cmm 03/27/2019 16:40 [facility] Type of Diff: Automated 03/27/2019 16:40 [facility] Blood specimen (specimen) BLOOD SPECIMEN / Unknown 03/27/2019 16:02 EDT 03/27/2019 16:32 EDT Amber Mendosa DO PACKAGES & DNA PROBE ORDERABLES [facility] [address] [place] [address] * PHOSPHORUS (03/27/2019 16:02 EDT) Phosphorus 4.2 2.5 - 4.5 mg/dl 03/27/2019 17:02 T [facility] Blood specimen (specimen) BLOOD SPECIMEN / Unknown 03/27/2019 16:02 EDT 03/27/2019 16:32 EDT Amber Mendosa DO CHEMISTRY & BLOOD GA S ORDERABLES Performing Organization Address [facility] Co de Phone Number [facility] [address] [place] [address] * PTH INTACT (03/27/2019 16:02 EDT) PTH 48 19 - 88 pg/ml 03/28/2019 10:09 [facility] Comment:Reference range base d on normal calcium level. Blood specimen (specimen) BLOOD SPECIMEN / Unknown 03/27/2019 16:02 EDT 03/27/2019 16:32 EDT Amber Mendosa DO CHEMISTRY & BLOOD GA S ORDERABLES Performing Organization Address [facility] de Phone Number [facility] [address] [place] [address] * (ABNORMAL) COMPREHENSIVE METABOLIC PANEL (CMP) (03/27/2019 16:02 EDT) Potassium 4.2 3.5 - 5.0 mEq/L 03/27/2019 17:02 [facility] Sodium 128(L) 136 - 145 mEq/L 03/27/2019 17:02 [facility] Chloride 91(L) 96 - 110 mEq/L 03/27/2019 17:02 [facility] CO2 28 22 - 32 mEq/L 03/27/2019 17:02 [facility] Total Alkaline Phosphatase 87 38 - 126 U/L 03/27/2019 17:02 [facility] Bilirubin, Total <0.5 <1.4 mg/dl 03/27/20 19 17:02 [facility] AST 22 15 - 46 U/L 03/27/2019 17:02 [facility] ALT 24 <53 U/L 03/27/2019 17:02 [facility] Albumin 4.7 3.4 - 4.9 g/dl 03/27/2019 17:02 [facility] Total Protein 7.0 6.3 - 8.2 g/dl 03/27/2019 17:02 [facility] Creatinine 0.59 0.52 - 1.04 mg/dl 03/27/2019 17:02 [facility] GFR, Calculated 100 >60 ml/min/1.7 3m2 03/27/2019 17:02 [facility] Comment: eGFR calculated using CKD-EPI equation for non Americans. Multiply eGFR by 1.16 for Americans. BUN 11 10 - 26 mg/dl 03/27/2019 17:02 [facility] Calcium 9.7 8.5 - 10.5 mg/dl 03/27/2019 17:02 [facility] Calculated Calcium 9.1 8.5 - 10.5 mg/dl 03/27/2019 17:02 [facility] Glucose, Serum 96 70 - 100 mg/dl 03/27/2019 17:02 [facility] Fasting? No 03/27/2019 15:59 [facility] Blood specimen (specimen) BLOOD SPECIMEN / Unknown 03/27/2019 16:02 EDT 03/27/2019 16:32 EDT Amber Mendosa DO CHEMISTRY & BLOOD GA S ORDERABLES Performing Organization Address City/State/[facility] Co de Phone Number [facility] [address] [place] [address] documented in this encounter Visit Diagnoses Diagnosis Other osteoporosis without current pathological fracture- Primary documented in this encounter Discontinued Medications Medication Sig Discontinue Reason Start Date End Da te lamoTRIgine (LAMICTAL) 100 mg tablet Take 100 mg by mouth 2 times daily. Therapy completed 03/27/2019 documented as of this encounter Care Teams Director [employer] Relationship Specialty Start Date End Date Aria Thompson MD [address] [place] [address] PCP - General 12/03/17 documented as of this encounter
--- OUTSIDE RECORDS SUMMARY | 2024-03-19 02:03 | XMS_ITS | Encounter Summary ---
Author Organization [facility] Address [address] [place] [address] Care Team Providers Care Shipyard Painting Supervisor Name Role Phone Aria Thompson MD Primary Care Provider Reason for Visit * Reason Onset Date Comments Medications Refill 01/06/2019 Encounter Details Date Type Department Care Team (Late st Contact Info) Description 01/06/2019 Refill [facility] Neurology [facility] [address] [place], [place] [id number] Marleny Quezada MD [address] [place] [address] Medications Refill Social History Tobacco [...] ONLY 360 Tab 3 01/06/2019 11/05/2019 documented in this encounter Plan of Treatment Not on file documented as of this encounter Visit Diagnoses Not on filedocumented in this encounter Care Teams Shipyard Painting Supervisor Relationship Specialty Start Date End Date Aria Thompson MD [address] [place] [address] PCP - General 12/03/17 documented as of this encounter
--- OUTSIDE RECORDS SUMMARY | 2024-03-19 02:03 | XMS_ITS | Encounter Summary ---
Author Organization [facility] Address [address] [place] [address] Care Team Providers Care Heating Equipment Installer Name Role Phone Aria Thompson MD Primary Care Provider Reason for Visit * Reason Onset Date Comments Appointment Related 05/27/2019 Encounter Details Date Type Department Care Team (Late st Contact Info) Description 05/27/2019 Telephone [facility] Speech & Language [address] [place] [address] Macie Goodson, ROBE [address] [place] [address] Appointment Related Social History Tobacco [...] * Telephone Encounter - Chantelle Steinberg - 05/27/2019 1641 EDT Called to schedule appointment, patient was on another line. I left my direct line. Chantelle Steinberg Therapy Loan Representative documented in this encounter Plan of Treatment Not on file documented as of this encounter Visit Diagnoses Not on filedocumented in this encounter Care Teams Heating Equipment Installer Relationship Specialty Start Date End Date Aria Thompson MD [address] [place] [address] PCP - General 12/03/17 documented as of this encounter
--- OUTSIDE RECORDS SUMMARY | 2024-03-19 02:03 | XMS_ITS | Encounter Summary ---
Author Organization [facility] Address [address] [place] [address] Care Team Providers Care Veneer Stock Grader Name Role Phone Aria Thompson MD Primary Care Provider Encounter Details Date Type Department Care Team (Late st Contact Info) Description 08/04/2022 Lab Requisition [facility] - Main [place] [address] [place] [id number] Derrick Mir MD [address] [place] [address] Ulcerative colitis, unspecified, without complications ([facility]) Social History Tobacco Use Types Packs/Day Years [...] Date/Time Associated Diagnosis Comments SURGICAL PATHOLOGY Today 08/03/2022 13 :25 EST Ulcerative colitis, unspecified, without complications ([facility]) ([facility]) documented in this encounter Results * SURGICAL PATHOLOGY (08/03/2022 13:25 EST) Note to Patient The following pathology results have been interpreted by your pathologist and may be available to you before your health provider has had the opportunity to review them. Please allow time for your provider to receive these results and explore management options, if applicable. 08/07/2022 15:57 [facility] Final Diagnosis A. COLON, TRANSVERSE, BIOPSY: - Chronic moderately active colitis. See comment. - Negative for dysplasia. B. COLON, DESCENDING, BIOPSY: - Chronic mildly active colitis. See comment. - Negative for dysplasia. C. COLON, SIGMOID, BIOPSY: - Chronic mildly active colitis. See comment. - Negative for dysplasia. D. RECTUM, BIOPSY: - Chronic moderately active proctitis. See comment. - Negative for dysplasia. 08/07/2022 15:57 [facility] Diagnosis Comment Histologic sections show chronic active colitis consistent with the patient's history of ulcerative colitis. There is no evidence of CMV on H&E sections. Dr. Keisha Garcia reviewed this case in consultation and agrees with the above diagnosis. 08/07/2022 15:57 [facility] Attestation By the signature below, the attending physician certifies that they have 1) personally conducted a gross and/or microscopic examination of the described specimen(s), and/or personally interpreted the results of laboratory testing of the described specimen(s), and 2) personally rendered or confirmed the above diagnosis. 08/07/2022 15:57 [facility] at 1557 Clinical History hx ulcerative colitis, r/o CMV 08/07/2022 15:57 [facility] Gross Description A. Received in formalin labeled ? Elsa L. Tai? and ? transverse colon Bx? is a single mucosal tissue fragment measuring 0.4 x 0.2 x 0.1 cm. Entirely submitted in A1. B. Received in formalin labeled ? Elsa L. Glacier? and ? descending colon Bx? are 2 mucosal tissue fragments ranging in size from less than 0.1 cm (may not survive processing) and 0.6 x 0.1 x 0.1 cm. Entirely submitted in B1. C. Received in formalin labeled ? Elsa L. Tai? and ? sigmoid colon? is a single mucosal tissue fragment measuring 0.2 x 0.1 x 0.1 cm. Entirely submitted in C1. D. Received in formalin labeled ? Elsa L. Tai? and ? rectum Bx? is a single mucosal tissue fragment measuring 0.4 x 0.1 x 0.1 cm. Entirely submitted in D1. ANNA VIGIL 08/04/2022 10:33 08/07/2022 15:57 EST [facility] Performing Lab [facility] 08/07/2022 15:57 EST [facility] Scanned Images 08/07/2022 15:57 EST [facility] Tissue SPECIMEN FROM RECTUM / Unknown 08/03/2022 13:25 EST 08/04/2022 5:37 EST Tissue specimen (specimen) DESCENDING COLON STRUCTURE / Unknown 08/03/2022 13:25 EST 08/04/2022 5:37 EST Tissue specimen (specimen) SIGMOID COLON STRUCTURE / Unknown 08/03/2022 13:25 EST 08/04/2022 5:37 EST Tissue specimen (specimen) SPECIMEN FROM RECTUM / Unknown 08/03/2022 13:25 EST 08/04/2022 5:37 EST Derrick Mir MD PATHOLOGY ORD ERABLES [facility] [address] [place] [address] documented in this encounter Visit Diagnoses Diagnosis Ulcerative colitis, unspecified, without complications ([facility]) documented in this encounter Care Teams Veneer Stock Grader Relationship Specialty Start Date End Date Aria Thompson MD [address] [place] [address] PCP - General 12/03/17 documented as of this encounter
--- OUTSIDE RECORDS SUMMARY | 2024-03-19 02:03 | XMS_ITS | Encounter Summary ---
Author Organization [facility] Address [address] [place] [address] Care Team Providers Care Reverser Name Role Phone Aria Thompson MD Primary Care Provider Reason for Visit * Reason Onset Date Comments Medication Management 10/16/2019 Encounter Details Date Type Department Care Team (Late st Contact Info) Description 10/16/2019 Telephone [facility] Endocrinology - [address] [address] Reno Lux RN Medication Management Social History Tobacco Use Types Packs/Day Years [...] Telephone Encounter - Reno Lux RN - 10/16/2019 1003 EST Called and left message for pt to call back. documented in this encounter Plan of Treatment Not on file documented as of this encounter Visit Diagnoses Not on filedocumented in this encounter Care Teams Reverser Relationship Specialty Start Date End Date Aria Thompson MD [address] [place] [address] PCP - General 12/03/17 documented as of this encounter
--- OUTSIDE RECORDS SUMMARY | 2024-03-19 02:03 | XMS_ITS | Encounter Summary ---
Author Organization [facility] Address [address] [place] [address] Care Team Providers Care Life Trainer Name Role Phone Aria Thompson MD Primary Care Provider Reason for Visit * Reason Onset Date Comments Appointment Related 10/15/2019 Encounter Details Date Type Department Care Team (Late st Contact Info) Description 10/15/2019 Telephone [facility] Endocrinology - [address] [address] Reno Lux RN Appointment Related Social History Tobacco Use Types [...] Telephone Encounter - Reno Lux RN - 10/15/2019 1323 EST Called and left message for pt to call back in regards to getting Prolia injection at Dr. Thompson's office. documented in this encounter Plan of Treatment Not on file documented as of this encounter Visit Diagnoses Not on filedocumented in this encounter Care Teams Life Trainer Relationship Specialty Start Date End Date Aria Thompson MD [address] [place] [address] PCP - General 12/03/17 documented as of this encounter
--- OUTSIDE RECORDS SUMMARY | 2024-03-19 02:04 | XMS_ITS | Encounter Summary ---
Author Organization [facility] Address [address] [place] [address] Care Team Providers Care Printed Circuit Boards Pinner Name Role Phone Bartolo Landon MD Primary Care Provider Encounter Details Date Type Department Care Team (Latest Contact Info) Description 01/01/2017 14:58 EDT - 01/01/2017 23:59 EDT Hospital Encounter [address] [address] Unknown, Provider, Discharge Disposition: Home or Self Care Social History Tobacco Use Types Packs/Day Years Used Date Smoking Tobacco: Never Assessed Sex and Gender Information Value Date Recorded Sex Assigned at Not on file Gender Identity Not on file Sexual Orientation Not on file documented as of this encounter Discharge Disposition Disposition Code Departure Means Destination Home or Self Intermediate documented in this encounter Plan of Treatment Not on file documented as of this encounter Visit Diagnoses Not on filedocumented in this encounter Care Teams Printed Circuit Boards Pinner Relationship Specialty Start Date End Date Bartolo Landon MD [address] [place] [address] PCP - General 03/12/09 12/02/17 documented as of this encounter
--- OUTSIDE RECORDS SUMMARY | 2024-03-19 02:04 | XMS_ITS | Encounter Summary ---
Author Organization [facility] Address [facility] [place] [address] Care Team Providers Care Laboratory Administrative Director Name Role Phone Pradeep Gallardo APRN Primary Care Provider [phone] Encounter Details Date Type Department Care Team (Late st Contact Info) Description 12/28/2023 [place] [address] Kim Morse PA [facility] [place] [address] Social History Tobacco Use Types Packs/Day Years Used Date Smoking Tobacco: Former Cigarettes Q uit: 03/23/2003 Smokeless Tobacco: Never Alcohol Use Standard Drinks/Week Comments Never 0 (1 standard drink = 0.6 oz pur e alcohol) Sex and Gender Information Value Date Recorded Sex Assigned at Not on file Gender Identity Not on file Sexual Orientation Not on file documented as of this encounter H&P Notes * Kim Morse PA - 12/28/2023 8:48 AM EDT Images from the original note were not included. Interventional Radiology Focused Pre-procedure H&P: PCP: Aria Thompson MD Referring Provider: Janice Villarreal MD Planned procedure: Non-focal hepatic parenchymal biopsy Procedure indication: Transaminitis, c/f dili from remicade vs ?AIH (TORRES positive but repeat negative) IR workflow: Procedure request received through Interventional Radiology eDH order queue. There are no answered order specific questions. History of Present Illness: Per chart review, Elsa Lujan is a 63 y.o. female with PMH of extensive ulcerative colitis on Remicade with new transaminitis concerning for drug induced liver injury vs autoimmune hepatitis, who presents to Interventional Radiology to undergo non-focal hepatic parenchymal biopsy. Past medical history is significant for seizure disorder, osteoporosis, and prior smoking history. Remainder of patient's medical and surgical history, allergies, medications, and social/family history obtained below as previously outlined in patient's medical record. IR History: None listed at [facility] Anticoagulation/Antiplatelet: None listed Labs: Lab Results Component Value Date HGB 12.5 06/13/2023 HCT 35.6 (L) 06/13/2023 WBC 4.4 06/13/2023 PLATELET 306 06/13/2023 BUN 11 12/26/2023 CREATININE 0.62 (L) 12/26/2023 ALBUMIN 4.7 12/26/2023 BILIDIR 0.1 12/26/2023 BILITOT 0.3 12/26/2023 AST 39 (H) 12/26/2023 ALT 60 (H) 12/26/2023 ALKPHOS 89 12/26/2023 Allergies: Bee pollens, Entyvio [vedolizumab], and Sulfa (sulfonamide antibiotics) Imaging: CTAP 08/09/22 Assessment: 63 y.o. female with transaminitis presenting to Interventional Radiology for non-focal hepatic parenchymal biopsy. Plan Planned procedure: Non-focal hepatic parenchymal biopsy Labs to be performed day of procedure: No labs Sedation: Moderate (Conscious sedation) Prophylactic antibiotic : None Contrast: No contrast Additional medications for procedure: Lidocaine Position: Supine Consent: Pending Medications to discontinue (and days held): None Cytopathology presence needed: No Case Urgency:: G2- Elective Outpatient intervention within 8-14 days Medications: Current Outpatient Medications on File Prior to Visit Medication Sig Dispense Refill cholecalciferol, Vitamin D3, 10 mcg (400 unit) Capsule Take 800 Units by mouth daily. psyllium Take 1 packet by mouth daily. 90 packet 3 polyethylene glycoL (Miralax) 17 gram/dose Powder Take 17 g by mouth daily as needed. 255 g 3 multivitamin (THERAGRAN) Tablet Take 1 tablet by mouth daily. inFLIXimab (Remicade) 100 mg Recon Soln Inject into the vein. OXcarbazepine (Trileptal) 300 mg Tablet Take 1,050 mg by mouth daily. No current facility-administered medications on file prior to visit. Past Medical/Surgical history: Patient Active Problem List Diagnosis Code Nontoxic single thyroid nodule E04.1 Ulcerative colitis K51.90 Age related osteoporosis M81.0 Seizure disorder G40.909 No past medical history on file. Past Surgical History: Procedure Laterality Date PRO COLONOSCOPY, BIOPSY N/A 10/09/2023 COLONOSCOPY FLEXIBLE, WITH BX (WRVU 3.56) performed by James Bobo MD at [facility] ENDOSCOPY Social History and Habits: Social History Tobacco Use Smoking status: Former Types: Cigarettes Quit date: 03/23/2003 Years since quittin.7 Smokeless tobacco: Never Vaping Use Vaping Use: Never used Substance Use Topics Alcohol use: Never Drug use: Never Significant Family History: No family history on file. Pertinent ROS: as per HPI Physical Exam: Pending (to be performed in IR the day of procedure) ASA: Pending (to be assessed in IR the day of procedure) Mallampati class: Pending (to be assessed in IR the day of procedure) 12/28/2023 Kim Morse PA-C documented in this encounter Plan of Treatment Upcoming Encounters Date Type Department Care Team (Late st Contact Info) Description 06/25/2024 9:30 AM EDT Office [place] [address] Janice Villarreal MD [facility] [place] [address] documented as of this encounter Visit Diagnoses Not on filedocumented in this encounter Care Teams Laboratory Administrative Director Relationship Specialty Start Date End Date Pradeep Gallardo APRN [address] [address] PCP - General 07/19/10 documented as of this encounter
--- OUTSIDE RECORDS SUMMARY | 2024-03-19 02:04 | XMS_ITS | Encounter Summary ---
Author Organization [facility] Address [address] [place] [address] Care Team Providers Care Causticiser Name Role Phone Aria Thompson MD Primary Care Provider Reason for Visit * Office Procedure (Routine) - Specialty Report Received Specialty Diagnoses / Procedures Referred By Merari rosario Referred To Contact Neurology Diagnoses Right arm pain Procedures ELECTRODIAGNOTICS: EMG/NERVE CONDUCTION STUDY Marleny Quezada MD [address] [place] [address] [facility] Neuromusc [facility] Clin Neurophys [address] [place] [address] Referral ID Status Reason Start Date Expiration Date V isits Requested Visits Authorized [id number] Specialty Report Received 01/28/2018 1 1 Encounter Details Date Type Department Care Team (Latest Contact Info) Description 05/24/2018 8:03 EDT - 05/24/2018 23:59 EDT Hospital Encounter [facility] Neurophysiology - Main [place] [address], [place] [id number] Shilo Serra MD [address] [place] [address], [address] [place] [address] Seizures ([facility]) Discharge Disposition: Auto Discharge Social History Tobacco [...] as of this encounter Discharge Diagnoses Diagnosis R56.9 Unspecified convulsions-R56.9[ICD-10-CM] documented in this encounter Medications at Time of Discharge Medication Sig Dispensed Refills Start Date End Date cholecalciferol, vitamin D3, (VITAMIN D3 ORAL) Take 2,000 Tabs by mouth daily. lamoTRIgine (LAMICTAL) 100 mg tablet Take 100 mg by mouth 2 times daily. 03/27/2019 mesalamine (CANASA) 1,000 mg suppository INSERT ONE SUPPOSITORY RECTALLY ONCE OR TWICE A DAY 02/04/2018 06/30/2021 OXcarbazepine (TRILEPTAL) 300 mg tablet Take 300 mg by mouth 4 times daily. 06/10/2018 documented as of this encounter Discharge Disposition Disposition Code Departure Means Destination Auto Discharge Home documented in this encounter Procedure Notes * Idris Hdez MD PhD - 05/24/2018 9558 EDTProcedure(s): AMBULATORY EEG- TRANSCRIBED ORDER [facility] Name: Elsa Lujan Clinical Neurophysiology Laboratory [address] [place] [address] : 1960 [place], [place] Date: 05/24/2018 Ambulatory Digital EEG Monitoring Report Referring Physician: Marleny Quezada MD Study Number: [id number] Clinical Indication: seizure-like spell. Medications: see prism Technical Description: Ambulatory digital electroencephalographic monitoring is performed utilizing a REEMA recorder. Silver/silver chloride EEG electrodes are placed according to the International 10-20 system as well as anterior temporal electrodes, a CPz recording reference and FCz ground contract.An ECG channel is also monitored. The patient is instructed to press and Event Button in the event of a seizure- like spell (Target Event). The patient is also instructed to maintain an activity log. The entire EEG datasetis reviewed by the attending physician. No pain assessment for this procedure is necessary. Findings: 1. The study begins at 10:50 April, and ends at 10:49 April,. 2. The parents submit(s) an activity diary and it is reviewed. A target event is not reported. 3. Interictal epileptiform discharges absent. 4. Seizure recorded: No. 5. All stages of sleep seen. Left temporal 2-5 Hz irregular slow present awake and in REM. It is less conspicuous in NREM sleep. Impression: Abnormal ambulatory monitoring study with left temporal slow. Clinical Correlation: Findings suggest an area of dysfunction in the left temporal area. There is no epileptiform activity in this study. Idris Hdez MD PHD ABPN Certified, Neurology ABCN Clinical Neurophysiology * Idris Hdez MD PhD - 05/24/2018 5796 EDTProcedure(s): AMBULATORY EEG- TRANSCRIBED ORDER [facility] Name: Elsa Lujan Clinical Neurophysiology Laboratory [address] [facility] : 1960 [place], [place] Date: 05/24/2018 Ambulatory Digital EEG Monitoring Report Referring Physician: Marleny Quezada MD Study Number: [id number] Clinical Indication: seizure-like spell. Medications: see prism Technical Description: Ambulatory digital electroencephalographic monitoring is performed utilizing a REEMA recorder. Silver/silver chloride EEG electrodes are placed according to the International 10-20 system as well as anterior temporal electrodes, a CPz recording reference and FCz ground contract.An ECG channel is also monitored. The patient is instructed to press and Event Button in the event of a seizure- like spell (Target Event). The patient is also instructed to maintain an activity log. The entire EEG datasetis reviewed by the attending physician. No pain assessment for this procedure is necessary. Findings: 1. The study begins at 10:50 April, and ends at 10:49 April,. 2. The parents submit(s) an activity diary and it is reviewed. A target event is not reported. 3. Interictal epileptiform discharges absent. 4. Seizure recorded: No. 5. All stages of sleep seen. Left temporal 2-5 Hz irregular slow present awake and in REM. It is less conspicuous in NREM sleep. Impression: Abnormal ambulatory monitoring study with left temporal slow. Clinical Correlation: Findings suggest an area of dysfunction in the left temporal area. There is no epileptiform activity in this study. Idris Hdez MD PHD ABPN Certified, Neurology ABCN Clinical Neurophysiology * Idris Hdez MD PhD - 05/24/2018 9726 EDTProcedure(s): AMBULATORY EEG- TRANSCRIBED ORDER [facility] Name: Elsa Lujan Clinical Neurophysiology Laboratory [address] [facility] : 1960 [place], [place] Date: 05/24/2018 Ambulatory Digital EEG Monitoring Report Referring Physician: Marleny Quezada MD Study Number: [id number] Clinical Indication: seizure-like spell. Medications: see prism Technical Description: Ambulatory digital electroencephalographic monitoring is performed utilizing a REEMA recorder. Silver/silver chloride EEG electrodes are placed according to the International 10-20 system as well as anterior temporal electrodes, a CPz recording reference and FCz ground contract.An ECG channel is also monitored. The patient is instructed to press and Event Button in the event of a seizure- like spell (Target Event). The patient is also instructed to maintain an activity log. The entire EEG datasetis reviewed by the attending physician. No pain assessment for this procedure is necessary. Findings: 1. The study begins at 10:50 of April, and ends at 9:39 of May,. 2. The parents submit(s) an activity diary and it is reviewed. A target event is not reported. 3. Interictal epileptiform discharges absent. 4. Seizure recorded: No. 5. All stages of sleep seen. Left temporal 2-5 Hz irregular slow present awake and in REM. It is less conspicuous in NREM sleep. Impression: Abnormal ambulatory monitoring study with left temporal slow. Clinical Correlation: Findings suggest an area of dysfunction in the left temporal area. There is no epileptiform activity in this study. Idris Hdez MD PHD ABPN Certified, Neurology [facility] Clinical Neurophysiology * Rodrick Muse MD - 05/24/2018 1450 EDT Images from the original note were not included. [facility] Name: Elsa Lujan Clinical Neurophysiology Laboratory [address] [facility] : 1960 [place], [place] Date: 05/24/2018 Electroencephalogram Report Referring Physician: Marleny Quezada MD Study Number: [id number] Clinical Indication: A 57 year old woman referred for evaluation of seizures. Medications: Medication Sig ??? cholecalciferol, vitamin D3, (VITAMIN D3 ORAL) Take 2 Tabs by mouth 2 times daily. ??? lamoTRIgine (LAMICTAL) 100 mg tablet Take 100 mg by mouth 2 times daily. ??? OXcarbazepine (TRILEPTAL) 300 mg tablet Take 300 mg by mouth 4 times daily. Technical Description: Standard EEG: An in-laboratory digital EEG is performed utilizing silver-silver chloride electrodesplaced according to the International 10-20 system of electrode placement. CPZ serves as the recording reference electrode. The following additional electrodes are also placed: ECG electrodes , anterior temporal electrodes The study begins at 1015 until 1046 with a total study duration of 31 minutes. During this study the following states the following were recorded: Wake Subject factors: Cooperative The patient and/or caregivers report:9 hours of sleep night before study; Estimated average 9 hoursof sleep Previous EEG Study? Yes (osh) Findings: Waking cerebral background activity is characterized by an alpha rhythm of 11 Hz that is symmetric,synchronous and reactive to eye opening and often with an admixed faster harmonic of this rhythm. Continuous low amplitude faster frequencies are symmetrically present. During this state there is often temporalis muscle artifact that partially obscures the underlying activity in the temporal regions. Hyperventilation is performed for just over 3 minutes with good patient effort and the first appearance of occasional moderate amplitude polymorphic delta waves occurs over the left anterior-mid temporal contacts. Photic stimulation is performed utilizing 10 second trains of stimulation by 10 second intervals without stimulation at flash frequencies between 1 to 20 Hz and then downward from 60 to 25 Hz. This stimulus produces a symmetric occipital driving response and no further abnormal responses. During drowsiness there are occasional to frequent 2-8 s runs of low to moderate amplitude polymorphic theta and delta activity over the left anterior-mid temporal contacts. No stage II sleep recorded. Impression: Abnormal EEG with the above described findings most consistent with intermittent mild-moderate focal cerebral dysfunction over the left anterior-mid temporal region. Clinical Correlation: These findings raise the concern of a focal structural lesion of the left temporal lobe or it's close functional connections and best addressed by a well-performed structural head imaging study. Similar changes can occur due to epilepsy, migraine, significant head trauma and others. 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 Rodrick Muse MD [facility] Certified, Neurology and Clinical Neurophysiology 14:50 05/24/2018 * Shilo Serra MD - 05/24/2018 1301 EDTProcedure(s): EMG/NERVE CONDUCTION STUDY Nerve Conduction and Electromyography Report History: Elsa Lujan is a 57 y.o. female who presents to EMG for evaluation of right arm pain. She reports that on September 27 2016, she had fallen at a gas station called [employer]. She slipped on a pile of water on the floor and fell on her outstretched hands. She endorsed significant concussion with racoon eyes. Since that event, she has been experiencing an aching pain which goes from her rightcervical paraspinal area down to the right scapula followed by deltoid and down to the wrist. Initially, it was constant through out the day about 5 out of a scale of 10. She used to use ibuprofen and do physiotherapy which improved her symptoms. 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 She had only one episode of numbness and tingling below her right wrist which lasted for 7 days and resolved completely. She does not have weakness, paresthesia in other limbs, lhermitt's, saddle anesthesia, bowel and bladder dysfunction, weight loss andconstitutional symptoms. Clinical Exam: Motor Exam: Normal bulk and tone. Strength is 5/5 throughout. DTRs: 2+ and symmetric. Toes are down going to plantar stimulation. Sensation: Intact light touch, pinprick, temperature and vibration except for slight reduced sensation to pinprick in the right medial antebrachial cutaneous region, medial arm, and right digit 1. Electrodiagnostic Summary: Right median and ulnar CMAP and SNAP were normal Right medial antebrachial cutaneous compared to left medial antebrachial cutaneous SNAP were normal. Right radial SNAP at anatomic snuff box was normal. F waves of right median and ulnar nerve were normal. Needle EMG of right FDI, pronator teres, biceps, triceps and deltoid were normal For waveforms/values of EMG/nerve conduction study please see accompanying scanned document in the scans/media tab in PRISM. Electrodiagnostic Impression This is a normal electrodiagnostic study. There is no electrodiagnostic evidence of , neuropathy, plexopathy, radiculopathy and myopathy. Impression: Ms. Lujan is a 57 year old female with an aching pain in the right arm and a near normal neurological exam with subjective numbness which does not follow a dermatome. The electrodiagnostic study was normal today which is reassuring. There is no need for further neurological investigations unless there is change in symptoms. Thank you for allowing me to participate in the care of your patient. Please don't hesitate to callwith any questions. Yours sincerely, Sandy Cee MD [facility] Neuromuscular fellow physician Attestation statement: I personally reviewed the tracings/ data and the reviewed the resident/ fellow's interpretation and agree with the findings. I also saw and examined the patient with the resident/fellow. I agree with the findings and plan ofcare documented in the resident's/fellow's note. Shilo Serra M.D. Neurology Teacher of Neurology ABPN Board Certified, Neurology [facility] Board Certified, EMG documented in this encounter Plan of Treatment Not on file documented as of this encounter Procedures Procedure Name Priority Date/Time Associated Diagnosis Comments ELECTROMYOGRAM - SCANNED 05/29/2018 8:54 EDT documented in this encounter Results * ELECTROMYOGRAM - SCANNED (05/29/2018 8:54 EDT) 05/29/2018 8:54 EDT Scan 2 Fiber Product Cutting Machine Operator PROCEDURE/MINOR ARASH GICAL ORDERABLES documented in this encounter Visit Diagnoses Diagnosis Seizures ([facility]) Other convulsions documented in this encounter Care Teams Causticiser Relationship Specialty Start Date End Date Aria Thompson MD [address] [place] [address] PCP - General 12/03/17 documented as of this encounter
--- OUTSIDE RECORDS SUMMARY | 2024-03-19 02:04 | XMS_ITS | Encounter Summary ---
Author Organization [facility] Address [address] [place] [address] Care Team Providers Care Forest And Conservation Worker Name Role Phone Bartolo Landon MD Primary Care Provider Aria Thompson MD Primary Care Provider Encounter Details Date Type Department Care Team (Late st Contact Info) Description 11/06/2012 Historical Results Only [facility] Lab - Main [place] [address] [place] [id number] Belen Mendosa [place] [id number] [place] [phone] Social History Tobacco Use Types Packs/Day Years Used Date Smoking Tobacco: Never Assessed Sex and Gender Information Value Date Recorded Sex Assigned at Not on file Gender Identity Not on file Sexual Orientation Not on file documented as of this encounter Plan of Treatment Not on file documented as of this encounter Procedures Procedure Name Priority Date/Time Associated Diagnosis Comments CYTOLOGY (NON-GYNECOLOGIC INCLUDING FLUIDS AND FINE NEEDLE ASPIRATION)- ORDER ONLY Routine 11/06/2012 documented in this encounter Results * CYTOLOGY (NON-GYNECOLOGIC INCLUDING FLUIDS AND FINE NEEDLE ASPIRATION)- ORDER ONLY (11/06/2012) 11/06/2012 11/06/2012 14: 58 EDT Narrative [facility] - 11/12/2012 11:21 EDT ----- ------- Name: SKYLA LONDONO ? : 56 ?Age/Sex: 58/F ?Unit#: [id number] ? Loc: DI ?Status: REG CLI ?? Reg Date: 11/06/12 ? Pt.Phone Number: ? ----- ------- Specimen: [id number] ? STATUS: SOUT ?Spec Date:11/06/12 ? Physician Copies: ?Belen Mendosa MD ?? Tissues: A ?? THYROID FNA (LEFT) ? Trevor Mensah MD ?? CPT: 02665 ?? Units: ??1 ? 66556 ? 1 ? [id number] ? 1 ----- ------- ?? NON INSTRUCTOR PRIVATE CYTOLOGY DIAGNOSIS Thyroid, left, ultrasound guided fine needle aspiration: - Suggestive of benign thyroid nodule. Comment: The specimen is hypocellular and blood dilute but does show an adequate number of follicular groups with bland appearance. ??A small bit of colloid is also probably present. Findings are suggestive of a benign thyroid nodule. ??Correlation with the clinical and radiographic impressions is recommended. Rapid Evaluation: Passes 1-4: Sparse follicular cells, mostly blood. ??([facility] 11/06/12) ?Additional passes obtained, not screened on site. ----- ------- ? SPECIMEN DESCRIPTION ? 30ml pink cytolyt, 1TP, 6 alc, 6 air Signed ____(signature on file)____ Keisha Garcia M.D. 11/12/12 By the signature above, the attending physician certifies that he/she has personally conducted a gross and/or microscopic examination of the described specimens and rendered or confirmed the above diagnosis. Test Performed by [facility], [address] [place] [address] Clay Maker: Keisha Garcia MD PHD ----- ------- Belen Mendosa MD PATHOLOGY ORDERABLES Performing Organization Address City/State/RUST Co de Phone Number [facility] documented in this encounter Visit Diagnoses Not on filedocumented in this encounter Care Teams Forest And Conservation Worker Relationship Specialty Start Date End Date Bartolo Landon MD [address] [place] [phone] PCP - General 03/12/09 12/02/17 Aria Thompson MD [address] [place] [address] PCP - General 12/03/17 documented as of this encounter
--- OUTSIDE RECORDS SUMMARY | 2024-03-19 02:04 | XMS_ITS | Encounter Summary ---
Author Organization [facility] Address [address] [place] [address] Care Team Providers Care Nurse Healthcare Manager Name Role Phone Aria Thompson MD Primary Care Provider Reason for Visit * Reason Comments Follow-up Encounter Details Date Type Department Care Team (Late st Contact Info) Description 06/10/2018 11:30 EDT Office Visit [facility] [address] [place] [address] Marleny Quezada MD [address] [place] [address] Seizures ([facility]) (Primary Dx); Osteopenia, unspecified location; On antiepileptic therapy Discharge Disposition: Auto Discharge Social History Tobacco [...] Dispensed Refills Start Date End Da te TRILEPTAL 300 mg tablet Take 1 Tab by mouth 4 times daily for 180 days. BRAND ONLY 360 Tab 1 06/10/2018 12/07/2018 documented in this encounter Discharge Disposition Disposition Code Departure Means Destination Auto Discharge documented in this encounter Progress Notes * Marleny Quezada MD - 06/10/2018 8870 EDT [facility] ?? FOLLOW UP - 06/10/2018 ? CHIEF COMPLAINT: Seizures, numbness. ?? INTERVALHISTORY: Elsa is a 57-year-old female with a history of epilepsy, previously well controlled but of undefined etiology on single-agent brand Trileptal with a subjective description of worsening of her spells ever since a work-related injury in September of last year. Plan was to maintain her on her current Trileptal, obtain an oxcarbazepine level as well as vitamin D. We did discuss osteopenia on chronic Trileptal therapy. She did not do well on generics. We were yanira pursue an MRI brainand ambulatory EEG to clarify the events. ?? With regards to the arm symptoms, reference was made of the right thumb in Dr Boggs' note, but this appeared to be a subjective description of color changes of the entire right hand in the setting of a previous trauma to the right arm in September of last year with no objective findings on exam today and duplex studies showing no arterial insufficiency. We pursued an EMG. ?? She returns with her and has had her labs, MRI brain done at [facility]. I do not have any of those results. She has not had another spell or seizure and seems to tolerate the Trileptal well. Herright arm symptoms as well as her headaches have resolved. She is doing much better overall when compared to her first visit with me. PAST MEDICAL AND SURGICAL HISTORY: Epilepsy, headaches, right arm pain, section. ?? MEDICATIONS: Trileptal brand 300 mg 4 times daily. Vitamin D. ?? ALLERGIES: SULFA. ?? FAMILY HISTORY: Dad, bladder cancer. Mom , COPD. One son, diabetes. ?? SOCIAL HISTORY: Former smoker, rarely drinks alcohol. Currently not driving. ?? REVIEW OF SYSTEMS: A 14-point review of systems identified with the patient. Aside from the above, all other systems are reviewed and negative. ?? PHYSICAL EXAM: Cephalic exam normal. Mucous membranes moist. Sclerae are anicteric. Oropharynx clear. Hemithoraces clear. Precordium: Regular S1, S2, no rubs, gallops or murmurs. Abdomen benign, normal bowel sounds. Extremities warm, symmetric peripheral pulses. No skin color changes are identifiedin the upper extremities. Pulses appear intact in both upper extremities. Range of motion in the upper extremities including the right appears normal. ?? Neurologic: Awake, alert and oriented x3. Pupils equally round and reactive, no afferent pupillary defect. Eye movements conjugate. Hodgson full, no nystagmus. Face symmetric, normal sensation. Tonguemidline, symmetric palatal elevation. Head and neck rotation intact. Shoulder shrug intact. Bulk, tone, strength intact, no drift, no adventitious motor movements. Stretch reflexes are symmetric throughout. No pathological reflexes. [id number], rapid alternating movements are intact. Romberg sign absent. Gait normal. IMAGING: Not available. LABS: Not available. EMG: April 2018- The electrodiagnostic study was normal today which is reassuring. There is no need for further neurological investigations unless there is change in symptoms. EEG: April 2018, 72 hour ambulatory and baseline studies at [facility] Impression: Abnormal ambulatory monitoring study with left temporal slow. ?? Clinical Correlation: Findings suggest an area of dysfunction in the left temporal area. There is no epileptiform activity in this study. ?? ASSESSMENT AND PLAN: Elsa is a 57-year-old female with a history of epilepsy, previously well controlled but of undefined etiology on single-agent brand Trileptal with a subjective description of worsening of her spells ever since a work-related injury in September of last year. We did discuss osteopenia on chronic Trileptal therapy and that I was not going to make a change to her regimen for now. She stated that she had a MRI brain but I did not receive the report or have the study for review.We will try and obtain that and I will get back to her if any concerns. Her EEG was abnormal but the finding is non specific. ?? With regards to the right arm symptoms, reference is made of the right thumb in Dr Boggs' note, but this appears to be a subjective description of color changes of the entire right hand in the setting of a previous trauma to the right arm in September of last year with no objective findings on exam today and duplex studies showing no arterial insufficiency. EMG was normal and symptoms have resolved. ?? Insofar as her headaches are concerned, these have resolved as well. I will see her in a few months as scheduled and will plan for a DEXA given th chronic therapy with trileptal. Encouraged to maintain a regimen of Vitamin D and calcium. I spent a total of 30 minutes in face to face time with this patient and 25 minutes of that time was spent in disease review, image review, counseling, treatment planning and coordination of care as described in the progress note. documented in this encounter Plan of Treatment Not on file documented as of this encounter Visit Diagnoses Diagnosis Seizures ([facility])- Primary Other convulsions Osteopenia, unspecified location On antiepileptic therapy documented in this encounter Discontinued Medications Medication Sig Discontinue Reason Start Date End Da te OXcarbazepine (TRILEPTAL) 300 mg tablet Take 300 mg by mouth 4 times daily. Reorder 06/10/2018 documented as of this encounter Care Teams Nurse Healthcare Manager Relationship Specialty Start Date End Date Aria Thompson MD [address] [place] [address] PCP - General 12/03/17 documented as of this encounter
--- OUTSIDE RECORDS SUMMARY | 2024-03-19 02:04 | XMS_ITS | Encounter Summary ---
Author Organization [facility] [place] [address] Care Team Providers Care Engine Tester Name Role Phone Pradeep Gallardo APRN Primary Care Provider [phone] Encounter Details Date Type Department Care Team ( Contact Info) Description 01/23/2024 [place]phone [place] [phone] Elenita Taveras Social History Tobacco Use Types Packs/Day Years Used Date Smoking Tobacco: Former Cigarettes Q uit: 03/23/2003 Smokeless Tobacco: Never Alcohol Use Standard Drinks/Week Comments Never 0 (1 standard drink = 0.6 oz pur e alcohol) Sex and Gender Information Value Date Recorded Sex Assigned at Not on file Gender Identity Not on file Sexual Orientation Not on file documented as of this encounter Miscellaneous Notes * Telephone Encounter - Elenita Taveras - 01/23/2024 3:22 PM EDT LVM for patient to reschedule to sooner appt with Dr. Villarreal. Held time on 03/12 st 8:30. Ok for aswell if patient is agreeable. documented in this encounter Plan of Treatment Upcoming Encounters Date Type Department Care Team (Late Contact Info) Description 06/25/2024 9:30 AM EDT Office [place] [phone] Janice Villarreal MD [facility] [place] [address] documented as of this encounter Visit Diagnoses Not on filedocumented in this encounter Care Teams Engine Tester Relationship Specialty Start Date End Date Pradeep Gallardo APRN [address] [address] PCP - General 07/19/10 documented as of this encounter
--- OUTSIDE RECORDS SUMMARY | 2024-03-19 02:04 | XMS_ITS | Encounter Summary ---
Author Organization [facility] Address [address] [place] [address] Care Team Providers Care Stone And Concrete Washer Name Role Phone Aria Thompson MD Primary Care Provider Reason for Visit * Reason Onset Date Comments Appointment Related 04/17/2018 Encounter Details Date Type Department Care Team (Late st Contact Info) Description 04/17/2018 Telephone [facility] Neurophysiology - Main [place] [address] [place], [place] [phone] MD Renzo Appointment Related Social History Tobacco Use Types [...] encounter Miscellaneous Notes * Telephone Encounter - Cleo Corea - 04/17/2018 1009 EDT LVM reminder of appointment 04/19/18, directions provided. documented in this encounter Plan of Treatment Not on file documented as of this encounter Visit Diagnoses Not on filedocumented in this encounter Care Teams Stone And Concrete Washer Relationship Specialty Start Date End Date Aria Thompson MD [address] [place] [address] PCP - General 12/03/17 documented as of this encounter
--- OUTSIDE RECORDS SUMMARY | 2024-03-19 02:04 | XMS_ITS | Encounter Summary ---
Author Organization 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 Name Role Phone Bartolo Landon MD Primary Care Provider Reason for Visit * Reason Onset Date Comments Procedure 11/30/2017 Encounter Details Date Type Department Care Team (Late st Contact Info) Description 11/30/2017 Orders Only [facility] Vascular Surgery - [address] [id number] Everette Boggs MD [address] [facility], [address] [place] [address] Cyanotic fingertip (Primary Dx) Social History Tobacco Use Types Packs/Day Years Used Date Smoking Tobacco: Never Assessed Sex and Gender Information Value Date Recorded Sex Assigned at Not on file Gender Identity Not on file Sexual Orientation Not on file documented as of this encounter Plan of Treatment Not on file documented as of this encounter Procedures Procedure Name Priority Date/Time Associated Diagnosis Comments VL LOWER ARTERIAL DUPLEX UNILATERAL Routine 12/03/2017 8:53 EDT documented in this encounter Results * VL LOWER ARTERIAL DUPLEX UNILATERAL (12/03/2017 8:53 EDT) Anatomical Region Laterality Modality Other 12/03/2017 8:53 EDT Narrative 12/03/2017 9:47 EDT Vascular Diagnostic Laboratory [facility] [place] [facility] Theatrical Variety Agent [facility], [address] [place] [address] Technologist: Ayanna Matias Fellow: IMPRESSIONS No evidence of hemodynamically significant disease on the right. PROCEDURE: Unilateral upper extremity arterial ultrasound; the subclavian, axillary, brachial, radial and ulnar arteries are routinely examined. 2D ultrasound, color flow Doppler, and spectral Doppler. INDICATION: Right 1st digit cyanosis. Right brachial systolic: 164mm Hg: Left brachial systolic: 157mm Hg 164 SEGMENTAL PRESSURES AND PVR: + +--------+ + Location ? Pressure Brachial index + +--------+ + Right wrist ? 176mm Hg 1.07 ? + +--------+ + Right 1st digit 149mm Hg 0.91 ? + +--------+ + Left wrist ? 169mm Hg 1.03 ? + +--------+ + Left 1st digit 141mm Hg 0.86 ? + +--------+ + * DOPPLER FINDINGS: + +-------+ Location ? V sys ?? + +-------+ Right subclavian 100cm/s + +-------+ Right axillary ?? 84cm/s + +-------+ Right brachial ?? 96cm/s + +-------+ Right radial ? 53cm/s + +-------+ Right ulnar ? 48cm/s + +-------+ * Electronically signed by: Everette Boggs. 12/03/2017 09:47 Procedure Note Everette Boggs MD - 12/03/2017 Vascular Diagnostic Laboratory [facility], [facility] [address] [place] [id number] Technologist: Ayanna Matias Fellow: IMPRESSIONS No evidence of hemodynamically significant disease on the right. PROCEDURE: Unilateral upper extremity arterial ultrasound; the subclavian, axillary, brachial, radial and ulnar arteries are routinely examined. 2D ultrasound, color flow Doppler, and spectral Doppler. INDICATION: Right 1st digit cyanosis. Right brachial systolic: 164mm Hg: Left brachial systolic: 157mm Hg 164 SEGMENTAL PRESSURES AND PVR: + +--------+ + Location Pressure Brachial index + +--------+ + Right wrist 176mm Hg 1.07 + +--------+ + Right 1st digit 149mm Hg 0.91 + +--------+ + Left wrist 169mm Hg 1.03 + +--------+ + Left 1st digit 141mm Hg 0.86 + +--------+ + * DOPPLER FINDINGS: + +-------+ Location V sys + +-------+ Right subclavian 100cm/s + +-------+ Right axillary 84cm/s + +-------+ Right brachial 96cm/s + +-------+ Right radial 53cm/s + +-------+ Right ulnar 48cm/s + +-------+ * Electronically signed by: Everette Boggs 12/03/2017 09:47 Everette Boggs MD [facility] VASCULAR JOHANNY GUERRA documented in this encounter Visit Diagnoses Diagnosis Cyanotic fingertip- Primary Cyanosis documented in this encounter Care Teams High [employer] Mathematics Teacher Relationship Specialty Start Date End Date Bartolo Landon MD [address] [place] [phone] PCP - General 03/12/09 12/02/17 documented as of this encounter
--- OUTSIDE RECORDS SUMMARY | 2024-03-19 02:04 | XMS_ITS | Clinical Summary ---
Author Organization Formerly [facility], [facility] Address [facility] [place] [address] Care Team Providers Care Huc Ob Name Role Phone Paulina Pradeep SPIVEY Primary Care Provider [phone] Allergies Active Allergy Reactions Criticality Noted Date Comments Bee Pollens 09/03/2023 Vedolizumab Rash 08/14/2022 Sulfa (Sulfonamide Antibiotics) Hives 04/2018 Medications Medication Sig Dispensed Refills Start Date End Date Status OXcarbazepine (TRILEPTAL) 300 mg tablet 04/04/2002 Active OXcarbazepine (Trileptal) 300 mg Tablet Take 1,050 mg by mouth daily. Active multivitamin (THERAGRAN) Tablet Take 1 tablet by mouth daily. Active inFLIXimab (Remicade) 100 mg Recon Soln Inject into the vein. Active cholecalciferol, Vitamin D3, 10 mcg (400 unit) Capsule Take 800 Units by mouth daily. Active psyllium Take 1 packet by mouth daily. 90 packet 3 06/13/2023 Active Additional Information Patient not taking.Reported on 03/12/2024 polyethylene glycoL (Miralax) 17 gram/dose Powder Take 17 g by mouth daily as needed. 255 g 3 06/13/2023 Active Additional Information Patient not taking.Reported on 03/12/2024 Active Problems Patient Care Coordination No te Formatting of this note migh t be different from the original. Receives Remicade infusions at [facility] Problem Noted Date Diagnosed Date Age related osteoporosis 08/14/2022 Seizure disorder 08/14/2022 Ulcerative colitis 08/09/2022 Nontoxic single thyroid nodule Encounters Date Type Department Care Team Description 03/14/2024 [place] [address] Janice Villarreal MD Ulcerative pancolitis without complication 03/12/2024 8:30 AM EDT Office [place] [address] Janice Villarreal MD Ulcerative pancolitis without complication (Primary Dx); Transaminitis 03/12/2024 Travel 02/18/2024 [place] [address] Talya Flynn 01/23/2024 [place] [address] Elenita Taveras 01/23/2024 [place] [address] Abby Baer RN 01/17/2024 10:10 AM EDT Laboratory Appointment Lab [address] [address] Ulcerative pancolitis without complication; Transaminitis 01/17/2024 8:08 AM EDT - 01/17/2024 11:59 PM EDT [place] [address] Janice Villarreal MD Transaminitis Discharge Disposition: Home 01/17/2024 Travel 12/28/2023 [place] [address] Kim Morse PA 12/27/2023 [place] [address] Janice Villarreal MD 12/27/2023 Orders [place] [address] Janice Villarreal MD Transaminitis 12/27/2023 [place] [address] Abby Baer RN 12/26/2023 1:50 PM EDT Laboratory Appointment Lab [address] [address] Transaminitis 12/26/2023 1:00 PM EDT Office [place] [address] Janice Villarreal MD Ulcerative pancolitis without complication (Primary Dx); Transaminitis 12/26/2023 Travel from Last 3 Months Immunizations Name Administration Dates Next Due Covid-19 (Pfizer), Vora Cap Bivalent 30mcg (12Yr s+) 09/05/2022 Social History Tobacco Use Types Packs/Day Years Used Date Smoking Tobacco: Former Cigarettes Q uit: 03/23/2003 Smokeless Tobacco: Never Tobacco Cessation:Counseling Given: Not Answered Alcohol Use Standard Drinks/Week Comments Never 0 (1 standard drink = 0.6 oz pur e alcohol) Sex and Gender Information Value Date Recorded Sex Assigned at Not on file Gender Identity Not on file Sexual Orientation Not on file Last Filed Vital Signs Vital Sign Reading Time Taken Comments Blood Pressure 149/56 03/12/2024 8:35 AM EDT Pulse 56 03/12/2024 8:35 AM EDT Temperature 36 ??C (96.8 ??F) 10/09/2023 10: 21 AM EST Respiratory Rate 17 10/09/2023 11:3 0 AM EST Oxygen Saturation 99% 10/09/2023 11: 35 AM EST Inhaled Oxygen Concentration - - Weight 67.9 kg (149 lb 12.8 oz) 03/12/2024 8:35 AM EDT Height 157.5 cm (5' 2) 03/12/2024 8:35 AM EDT Body Mass Index 27.4 03/12/2024 8:35 AM EDT Plan of Treatment Upcoming Encounters Date Type Department Care Team (Late st Contact Info) Description 06/25/2024 9:30 AM EDT Office [place] [address] Janice Villarreal MD [facility] [place] [address] Health Maintenance Due Date Last Done Comments CT Colonography 1958 FIT DNA 1958 FIT 1958 Sigmoidoscopy 1958 Tdap adult 1977 Tetanus vaccine 1977 HPV test 1988 PAP Smear 1988 Breast Cancer Share Decision Needed 1998 Breast Cancer screening 1998 Zoster vaccine (1 of 2) 2008 Advance Directive 2013 Covid-19 Vaccine (2 - 2022-2 4 season) 2023 09/05/2022 Bone Density Scan 11/02/2023 Pneumoccocal Vaccine: 65+ (1 of 1 - PCV) 11/02/2023 Influenza (Flu) vaccine (1 o f 1 - Influenza standard series) 04/27/2024 Colonoscopy 10/09/2025 10/09/2023, 10/09/2023 Colorectal Cancer Screening 10/09/2025 Diabetes Screening (HgbA1C o r Glucose) 03/12/2027 03/12/2024, 01/17/2024, 12/26/2023, Additional history exists Sigmoidoscopy (10 year) with FIT yearly 10/09/2033 10/09/2023, 10/09/2023 HIV screen Completed 12/26/2023 Hepatitis C Screening Completed 12/26/2023 Procedures Procedure Name Priority Date/Time Associated Diagnosis Comments BILIRUBIN, DIRECT Routine 03/12/2024 9:32 AM EDT COMPREHENSIVE METABOLIC PANE L (NON-FASTING) Routine 03/12/2024 9:32 AM EDT Transaminitis HC P[facility] INFLIXIMAB QUANT Routine 03/12/20 9:32 AM EDT Ulcerative pancolitis without complication HC C-REACTIVE PROTEIN Routine 03/12/2024 9:32 AM EDT Ulcerative pancolitis without complication COMPREHENSIVE METABOLIC PANE L (NON-FASTING) Routine 01/17/2024 9:47 AM EDT Transaminitis HC PCH INFLIXIMAB QUANT Routine 01/17/20 9:47 AM EDT Ulcerative pancolitis without complication MRI CHOLANGIOPANCREATOGRAPHY Routine 9:20 AM EDT Transaminitis HC PCH SMOOTH MUSCLE AB SCREEN, SMAT Routine 12/26/2023 2:09 PM EDT Transaminitis HC PCH MITOCHONDRIAL ANTIBODY Routine 2:09 PM EDT Transaminitis BILIRUBIN, DIRECT Routine 12/26/2023 2:08 PM EDT COMPREHENSIVE METABOLIC PANE L (NON-FASTING) Routine 12/26/2023 2:08 PM EDT Transaminitis HC HEPATITIS C ANTIBODY Routine 12/26/19 2:08 PM EDT Transaminitis HC HIV SCREEN, 4TH GENERATION Routine 2:08 PM EDT Transaminitis HC DNA AB DS (CAHUILLA) Routine 12/26/2023 2:08 PM EDT Transaminitis HC PCH SMOOTH MUSCLE AB SCREEN, SMAT Routine 12/26/2023 2:08 PM EDT Transaminitis HC PCH MITOCHONDRIAL ANTIBODY Routine 2:08 PM EDT Transaminitis HC IGG, SERUM Routine 12/26/2023 2:08 PM EDT Transaminitis HC SERUM PROT. ELECTROPHORESIS Routine 0 12/26/2023 2:08 PM EDT Transaminitis HC HEMOGLOBIN A1C Routine 12/26/2023 2:08 PM EDT Transaminitis LIPID PANEL (REFLEX DIRECT LDL) Routine 12/26/2023 2:08 PM EDT Transaminitis HC IRON BINDING CAPACITY Routine 024 2:08 PM EDT Transaminitis HC FERRITIN, SERUM Routine 12/26/2023 2:08 PM EDT Transaminitis HC A1AT (ALPHA-1 ANTITRYPSIN) Routine 2:08 PM EDT Transaminitis HC CERULOPLASMIN Routine 12/26/2023 2:08 PM EDT Transaminitis COLONOSCOPY Routine 10/09/2023 9:59 AM EST from Last 3 Months or Most Recently Relevant to Health Maintenance Results * Infliximab Level (03/12/2024 9:32 AM EDT) Only the most recent of2 resultswithin the time period is included. Infliximab Level Test ? Result ?Flag ??Unit ?RefValue ------- Infliximab QN with Reflex to Ab, S ??Infliximab, S ?9.1 ? mcg/mL ? ---REFERENCE VALUE ?Limit of Quantitation = 1.0 mcg/mL ??Interpretation ? SEE COMMENTS ?For clinical assessment of response to therapy, infliximab ?should be measured at trough. When infliximab trough ?concentrations are greater than 5.0 mcg/mL, clinically ?relevant gyfqdrntpn-[id number]-hbut iximab are unlikely and reflex ?testing will not be performed. ? ---ADDITIONAL INFORMATION------- ?This test was developed and its performance characteristics ?determined by [facility] in a manner consistent with CLIA ?requirements. This test has not been cleared or approved by ?the U.S. Food and Drug Administration. ?Test Performed by: ?[facility] ?[address] [place] [address] ?Park Interpretive Specialist: Patricia Saravia Ph.D.; CLIA# [id number] [facility] Blood 03/12/2024 9:32 AM EDT 03/12/2024 12:24 PM EDT Narrative Resulting Agency Comment Spec In Lab Janice Villarreal MD CHEMISTRY ORDERABLES Performing Organization Address [facility] Co de Phone Number [facility] [place] [address] * CRP, acute inflammation (03/12/2024 9:32 AM EDT) CRP <3.0 <=4.9 mg/L [facility] Blood 03/12/2024 9:32 AM EDT 03/12/2024 9:43 AM EDT Narrative Resulting Agency Comment Spec In Lab Janice Villarreal MD CHEMISTRY ORDERABLES Performing Organization Address [facility] Co de Phone Number [facility] [place] [address] * Bilirubin, Direct (03/12/2024 9:32 AM EDT) Only the most recent of2 resultswithin the time period is included. Pathologist [facility] Bili, Direct 0.1 0.0 - 0.3 mg/dL [facility] Blood 03/12/2024 9:32 AM EDT 03/12/2024 9:43 AM EDT Narrative Resulting Agency Comment Spec In Lab Janice Villarreal MD CHEMISTRY ORDERABLES [facility] [place] [address] * (ABNORMAL) Comprehensive metabolic panel (non-fasting) (03/12/2024 9:32 AM EDT) Only the most recent of3 resultswithin the time period is included. [facility] Glucose Lvl 94 65 - 199 mg/dL [facility] Comment:Diabetes: >=200 mg/d L plus symptoms BUN 13 8 - 18 mg/dL [facility] Creatinine 0.58(L) 0.70 - 1.20 mg/dL [facility] Sodium 135 135 - 145 mmol/L [facility] Potassium 4.5 3.5 - 5.0 mmol/L [facility] Comment: Please note: ??Patients with WBC >100,000 may have falsely elevated Potassium levels. ??For accurate Potassium quantification in these patients send serum separator tube (gold top) for subsequent determinations. ??Contact the Clinical Chemistry Laboratory if there are any questions. Chloride 97(L) 98 - 107 mmol/L [facility] CO2 26 22 - 31 mmol/L [facility] Anion Gap 12 5 - 15 mmol/L [facility] Calcium 9.5 8.5 - 10.5 mg/dL [facility] Total Protein 6.9 6.1 - 8.0 g/dL [facility] Albumin 4.6 3.2 - 5.2 g/dL [facility] AST 20 0 - 30 unit/L [facility] ALT 28 0 - 30 unit/L [facility] Alk Phos 88 35 - 105 unit/L [facility] Total Bilirubin 0.3 0.2 - 1.3 mg/dL [facility] Estimated GFR 100 >=60 mL/min/1. 73 m?? [facility] Comment: This patient's estimated GFR was calculated using the 2020 CKD-EPI equation. The estimated GFR can vary from the measured GFR by up to 30% in the absence of rapidly changing kidney function. Assessment of the estimated GFR is not appropriate when creatinine concentrations are rapidly changing. For clinical situations in which a more precise estimate of GFR is necessary, consider alternative methods of GFR estimation such as a 24-hour urine creatinine clearance. Assignment of CKD stage 1-5 for patients with an eGFR near the transition point between stages may be based on clinical assessment of muscle mass and symptoms in addition to eGFR. Blood 03/12/2024 9:32 AM EDT 03/12/2024 9:43 AM EDT Narrative Resulting Agency Comment Spec In Lab Janice Villarreal MD CHEMISTRY ORDERABLES [facility] [place] [address] * MRI Cholangiopancreatography WO Contrast (01/17/2024 9:20 AM EDT) [employer] WORKSTATION ID [id number] DH RAD Anatomical Region Laterality Modality Magnetic Resonan ce Impressions 01/17/2024 11:00 AM EDT No stricture or beading to suggest PSC. Thank you for letting us participate in the care of this patient. ??If you are a health care provider and have any questions regarding this report, please contact the number below. ??For patients who have questions please contact the health child care education coordinator that requested your imaging first. ? Electronically signed by: MUNA WASHBURN MD, [facility] ([phone]), at 01/17/2024 11:00 AM Narrative 01/17/2024 11:00 AM EDT EXAMINATION: MRI CHOLANGIOPANCREATOGRAPHY WO CONSTRAST CLINICAL HISTORY: 63F with UC and new transaminitis, evaluate for PSC R74.01, Elevation of levels of liver transaminase levels TECHNIQUE: Noncontrast MRCP was performed. 3D MIPS were created. COMPARISON: CT abdomen pelvis 08/09/2022 FINDINGS: Liver: Normal size and T2 signal intensity. Bile ducts: Intrahepatic bile ducts are well visualized and normal in caliber. The common bile duct is normal caliber. No intraluminal filling defects. Gallbladder: No calculi. Layering T2 intermediate sludge. Normal wall. No adjacent inflammation. Pancreas: Normal T2 signal intensity. Pancreatic duct: Normal caliber and configuration. Spleen: Normal size and signal intensity. Adrenal glands: Normal. Kidneys: A few peripelvic cysts on the right. No hydronephrosis. Bowel and mesentery: Non-dilated. No inflammatory changes. Lymph nodes: No adenopathy. Osseous structures: No focal marrow signal abnormality. Procedure Note Muna Washburn MD - 01/17/2024 EXAMINATION: MRI CHOLANGIOPANCREATOGRAPHY WO CONSTRAST CLINICAL HISTORY: 63F with UC and new transaminitis, evaluate for PSC R74.01, Elevation of levels of liver transaminase levels TECHNIQUE: Noncontrast MRCP was performed. 3D MIPS were created. COMPARISON: CT abdomen pelvis 08/09/2022 FINDINGS: Liver: Normal size and T2 signal intensity. Bile ducts: Intrahepatic bile ducts are well visualized and normal incaliber. The common bile duct is normal caliber. No intraluminal filling defects. Gallbladder: No calculi. Layering T2 intermediate sludge. Normal wall.No adjacent inflammation. Pancreas: Normal T2 signal intensity. Pancreatic duct: Normal caliber and configuration. Spleen: Normal size and signal intensity. Adrenal glands: Normal. Kidneys: A few peripelvic cysts on the right. No hydronephrosis. Bowel and mesentery: Non-dilated. No inflammatory changes. Lymph nodes: No adenopathy. Osseous structures: No focal marrow signal abnormality. IMPRESSION No stricture or beading to suggest PSC. Thank you for letting us participate in the care of this patient. If youare a health care provider and have any questions regarding this report,please contact the number below. For patients who have questions please contactthe health child care education coordinator that requested your imaging first. Electronically signed by: MUNA WASHBURN MD, [facility]([phone]), at 01/17/2024 11:00 AM Janice Villarreal MD IMG MRI ORDERABLES * Mitochondrial Antibody, M2 (12/26/2023 2:09 PM EDT) Only the most recent of2 resultswithin the time period is included. Mitochon Ab <0.1 <0.1 (Negative) U [facility] Comment: Test Performed by: [facility] [address] [place] [address] Park Interpretive Specialist: Basil Retana M.D. Ph.D.; CLIA# [id number] Blood 12/26/2023 2:09 PM EDT 12/26/2023 3:55 PM EDT Narrative Resulting Agency Comment Spec In Lab Janice Villarreal MD IMMUNOLOGY ORDERABLE S [facility] [place] [address] * Smooth Muscle Antibody (12/26/2023 2:09 PM EDT) Only the most recent of2 resultswithin the time period is included. Sm Muscle Ab Negative Negative [facility] Comment: Negative: No further testing will be performed ADDITIONAL INFORMATION This test was developed and its performance characteristics determined by [facility] in a manner consistent with CLIA requirements. This test has not been cleared or approved by the U.S. Food and Drug Administration. Test Performed by: [facility] [address] [place] [id number] Park Interpretive Specialist: Basil Retana M.D. Ph.D.; CLIA# [id number] Blood 12/26/2023 2:09 PM EDT 12/26/2023 3:55 PM EDT Narrative Resulting Agency Comment Spec In Lab Janice Villarreal MD IMMUNOLOGY ORDERABLE S Performing Organization Address City/[facility]/ZIP Co de Phone Number [facility] [place] [address] * Hepatitis C Antibody (12/26/2023 2:08 PM EDT) Hepatitis C Ab Negative Negative [facility] Blood 12/26/2023 2:08 PM EDT 12/26/2023 2:27 PM EDT Narrative Resulting Agency Comment Spec In Lab Janice Villarreal MD IMMUNOLOGY ORDERABLE S Performing Organization Address [facility]/ZIP Co de Phone Number [facility] [place] [address] * Iron and TIBC (12/26/2023 2:08 PM EDT) Iron 94 30 - 150 mcg/dL [facility] TIBC 298 250 - 450 mcg/dL [facility] Iron Saturation 32 20 - 50 % [facility] Blood 12/26/2023 2:08 PM EDT 12/26/2023 2:27 PM EDT Narrative Resulting Agency Comment Spec In Lab Janice Villarreal MD CHEMISTRY ORDERABLES Performing Organization Address City/[facility]/ZIP Co de Phone Number [facility] [place] [address] * A1AT Serum Concentration (12/26/2023 2:08 PM EDT) A1AT 155 90 - 200 mg/dL [facility] Blood 12/26/2023 2:08 PM EDT 12/26/2023 2:27 PM EDT Narrative Resulting Agency Comment Spec In Lab Janice Villarreal MD CHEMISTRY ORDERABLES Performing Organization Address [facility]/ZIP Co de Phone Number [facility] [place] [address] * Ceruloplasmin (12/26/2023 2:08 PM EDT) Ceruloplasmin 29.6 16.0 - 45.0 mg/dL [facility] Blood 12/26/2023 2:08 PM EDT 12/26/2023 2:27 PM EDT Narrative Resulting Agency Comment Spec In Lab Janice Villarreal MD CHEMISTRY ORDERABLES Performing Organization Address [facility] Co de Phone Number [facility] [place] [address] * HIV Screen, 4th Generation (MC/CGP/APD/NLH) (12/26/2023 2:08 PM EDT) HIV-1/2 Ab and Ag Negative Negative [facility] Comment: This 4th Generation HIV test screens for the presence of the HIV-1 p24 antigen as well as antibodies reactive against HIV-1 and HIV-2. A negative screen does not rule out an acute HIV infection. If acute HIV infection is suspected, testing should be repeated in 2 - 3 weeks or HIV nucleic acid testing performed. HIV Comment Low Risk of HIV Infection [facility] Blood 12/26/2023 2:08 PM EDT 12/26/2023 2:27 PM EDT Narrative Resulting Agency Comment Spec In Lab Janice Villarreal MD IMMUNOLOGY ORDERABLE S Performing Organization Address [facility]/ZIP Co de Phone Number [facility] [place] [address] * TORRES Antibody Screen (12/26/2023 2:08 PM EDT) Antinuclear Ab Negative Negative [facility] Comment: This antinuclear antibody (TORRES) screen is a qualitative test performed using a fluoroenzyme immunoassay on the [employer] 250 analyzer. This screen is designed to detect antibodies to U1RNP, SS-A/Ro, SS-B/La, centromere B, Scl-70, Maru-1, and Sm(Lux) proteins in serum samples. Antibodies to other nuclear antibodies will not be detected with this assay. This TORRES screen is also performed in concert with a quantitative for IgG antibodies to dsDNA. dsDNA Ab 1.1 <=15.0 IU/mL [facility] Comment: <10 negative 10-15 equivocal >15 positive This dsDNA antibody result was generated using a fluoroenzyme immunoassay on the Phadia 250 analyzer. This quantitative test is designed to detect IgG antibodies directed against double stranded DNA in human serum. The presence of antibodies that recognize dsDNA is a highly specific marker for systemic lupus erythematosus. Please note that as of 06/20/2022 that this testing is performed by the [facility] [place] [facility] This change in testing location is associated with a change is testing method and reference intervals. Please review the results of this test in association with the posted reference intervals. Blood 12/26/2023 2:08 PM EDT 12/27/2023 7:26 AM EDT Narrative Resulting Agency Comment Spec In Lab Janice Villarreal MD IMMUNOLOGY ORDERABLE S [facility] [place] [address] * Protein Electrophoresis, serum (12/26/2023 2:08 PM EDT) Pathologist [facility] Total Prot Elec 6.6 6.1 - 8.0 g/dL [facility] Albumin Elect 4.65 3.20 - 5.20 g/dL [facility] Alpha1-Globul in 0.17 0.10 - 0.30 g/dL [facility] Alpha2-Globul in 0.63 0.40 - 0.90 g/dL [facility] Beta Globulin 0.53 0.50 - 1.00 g/dL [facility] Gamma Globulin 0.62 0.50 - 1.30 g/dL [facility] M1 Band None Detected None Detected [facility] Blood 12/26/2023 2:08 PM EDT 12/26/2023 2:27 PM EDT Narrative Resulting Agency Comment Spec In Lab aJnice Villarreal MD CHEMISTRY ORDERABLES Performing Organization Address [facility] Co de Phone Number [facility] [place] [address] * Hemoglobin A1c (12/26/2023 2:08 PM EDT) Hemoglobin A1C 5.3 4.3 - 5.6 % [facility] Comment: Reference Range: 4.3 - 5.6% 5.7 - 6.4% - Increased Risk of Developing Diabetes Mellitus >= 6.5% - Consistent with diagnosis of Diabetes Mellitus In the absence of hyperglycemia (i.e. plasma glucose > 200 mg/dL) or classic symptoms of hyperglycemia a repeat measurement of HbA1c should be performed on a separate sample to confirm the diagnosis. Diagnosis and Classification of Diabetes Mellitus, Diabetes Care 2013; 36: Suppl. 1, H87-58 Est Avg Gluc 106 mg/dL [facility] Blood 12/26/2023 2:08 PM EDT 12/26/2023 2:27 PM EDT Narrative Resulting Agency Comment Spec In Lab Janice Villarreal MD CHEMISTRY ORDERABLES Performing Organization Address [facility] Co de Phone Number [facility] [place] [address] * IgG (12/26/2023 2:08 PM EDT) IgG 877 700 - 1,600 mg/dL [facility] Comment: Pediatric Reference Intervals obtained from the [employer] Reference Interval project. http://www.sickkids.ca/caliperproject/index.html Blood 12/26/2023 2:08 PM EDT 12/26/2023 2:27 PM EDT Narrative Resulting Agency Comment Spec In Lab Janice Villarreal MD IMMUNOLOGY ORDERABLE S Performing Organization Address [facility] [facility]/ZIP Co de Phone Number [facility] [place] [address] * Ferritin (12/26/2023 2:08 PM EDT) Ferritin 55 11 - 328 ng/mL [facility] Comment: Please note that as of 08/01/2023, the reference intervals for Ferritin have been updated. Blood 12/26/2023 2:08 PM EDT 12/26/2023 2:27 PM EDT Narrative Resulting Agency Comment Spec In Lab Janice Villarreal MD CHEMISTRY ORDERABLES Performing Organization Address [facility] Co de Phone Number [facility] [place] [address] * Lipid Panel (Reflex Direct LDL) (12/26/2023 2:08 PM EDT) Chol, Total 273 mg/dL [facility] Comment: Desirable: ? <200 mg/dL Borderline High: 200-239 mg/dL Higher: ?>lo=950 mg/dL Triglycerides 36 mg/dL [facility] Comment: Normal: ?<150 mg/dL Borderline High: 150-199 mg/dL High: ?200-499 mg/dL Very High: ? >vw=308 mg/dL HDL 140 mg/dL [facility] Comment: Females: High Risk: <50 mg/dL Males: High Risk: <40 mg/dL LDL Cholesterol 126 mg/dL [facility] Comment: Desirable: ? <100 mg/dL Above Desirable: 100-129 mg/dL Borderline High: 130-159 mg/dL High: ?160-189 mg/dL Very High: ? >mj=056 mg/dL Lipid Interpretation See Note [facility] Comment: It is important to review the results of your lipid panel with your health care provider. You can compare your lipid results to the ranges below and whether they are in the desirable range. These ranges are only meant to be used for people without known cardiac disease, history of stroke, or peripheral vascular disease (blockages in the leg arteries or diabetes). If ??you have one of these conditions, your desirable LDL-C (bad cholesterol) will likely be even lower. ACC/AHA Guidelines (most recently Jenni et al. [facility] 05/30/22): For individuals with atherosclerotic cardiovascular disease (ASCVD)or LDL >wz=264 mg/dL, use a high-intensity statin (40-80 mg atorvastatin or 20-40 mg rosuvastatin with goal >or=50% LDL reduction) For individuals with diabetes, age 40-75 without ASCVD, moderate-intensity statin (goal 30-49% LDL reduction); consider high intensity statin for those with increased risk. For adults without diabetes or ASCVD, aged 40-75 with LDL 70-189 mg/dL, estimate 10 year ASCVD risk with smartphrase .ASCVDRISK or Dynamed Decisions. If 10 year risk is 7.5%-19.9% (intermediate risk), consider moderate intensity statin based on risk enhancers and patient preference. Consider coronary artery calcium test (CT) if there is concern regarding the benefit of a statin. If ten year risk is >or=20%, initiate high-intensity statin. Evaluate for secondary causes of triglycerides >500 mg/dL or LDL >190 mg/dL. Lifestyle modification is a critical component of ASCVD risk reduction. If not reaching LDL goals on maximally tolerated statin, consider ezetimibe and/or a PCSK9 inhibitor: Target for primary prevention: LDL<100 Target for those with ASCVD or diabetes and 10-year risk >or=20%: LDL<70 Target for those with very high risk ASCVD: LDL<55 (Very high risk being the presence of 2 or more of: recent acute coronary syndrome, past myocardial infarction, ischemic stroke, symptomatic peripheral artery disease) Blood 12/26/2023 2:08 PM EDT 12/26/2023 2:27 PM EDT Narrative Resulting Agency Comment Spec In Lab Janice Villarreal MD CHEMISTRY ORDERABLES [facility] [place] [address] * COLONOSCOPY (10/09/2023 9:59 AM EST) COLONOSCOPY [facility] Endoscopy Procedure Date: 10/09/2023 9:59 AM ? Patient Name: Elsa Lujan ? Date of : 1960 ? Age: 62 ? Order #: [id number] ? Instrument Name: [id number] ? Procedure: ? Colonoscopy Indications: ? Pt with UC, Asx now on IFX Providers: ? James Bobo MD, Tiffanie Richardson ? Nils Millan MD: ?Aria Thompson MD Medicines: ? Midazolam 4 mg IV, Fentanyl 150 ? micrograms IV Complications: ? No immediate complications. Procedure: ? The procedure, indications, ? benefits, risks and alternatives ? were explained to the patient. ? Specifically discussed were ? potential complications including, ? but not limited to, bleeding, ? perforation, infection, missing a ? cancer, and adverse medication ? reactions. The patient was placed ? in the left lateral decubitus ? position, and a digital rectal exam ? was performed. The Colonoscope was ? inserted in the anus and under ? direct visualization, advanced to ? the terminal ileum. Careful ? inspection was made as the ? colonoscope was withdrawn. The ? colonoscopy was performed without ? difficulty. The patient tolerated ? the procedure well. The quality of ? the bowel preparation was evaluated ? using the BBPS ([place] Bowel ? Preparation Scale) with scores of: ? Right Colon = 3, Transverse Colon = ? 3 and Left Colon = 3 (entire mucosa ? seen well with no residual ? staining, small fragments of stool ? or opaque liquid). The total BBPS ? score equals 9. Scope withdrawal ? time was 9 minutes. ? Findings: ? The perianal and digital rectal examinations were ? normal. ? The colon mucosa (entire examined portion) appeared ? normal. Biopsies were taken with a cold forceps for ? histology. ? The terminal ileum appeared normal. ? Multiple large-mouthed diverticula were found in the ? sigmoid colon and descending colon. ? Moderate Sedation: ? I was present during the intraservice time as ? documented by the sedation RN. Impression: ?- The entire examined colon is ? normal. Biopsied. ? - The examined portion of the ileum ? was normal. ? - Diverticulosis in the sigmoid ? colon and in the descending colon. Recommendation: ?- Await pathology results. ? - Repeat colonoscopy in 2 years for ? surveillance. ? Attending Participation: ? I personally performed the entire procedure. ? _ James Bobo MD 10/09/2023 11:10:14 AM This report has been signed electronically. Number of Addenda: 0 Note Initiated On: 10/09/2023 9:59 AM PROVATION 10/09/2023 9:59 AM EST Aria Thompson MD GENERAL SURGICAL ORD ERABLES PROVATION from Last 3 Months or Most Recently Relevant to Health Maintenance Advance Directives * Attempt Cardiopulmonary Resuscitation - Inpatient (Latest Code Status on File) Date Activated Date Inactivated Comments 08/09/2022 3:33 PM 08/14/2022 4:39 PM Question Answer Comments Code Status decision made by: Patient Care Teams Huc Ob Relationship Specialty Start Date End Date Pradeep Gallardo APRN [address] [address] PCP - General 07/19/10
--- OUTSIDE RECORDS SUMMARY | 2024-03-19 02:04 | XMS_ITS | Encounter Summary ---
Author Organization [facility] Address [address] [place] [address] Care Team Providers Care Hematology Nurse Name Role Phone Aria Thompson MD Primary Care Provider Encounter Details Date Type Department Care Team (Late st Contact Info) Description 05/25/2018 8:40 EDT - 05/25/2018 23:59 EDT Hospital Encounter [facility] Neurophysiology - [facility] [address] [place] [address] Unknown, Provider, Idris Hdez MD PhD [address] [facility] [place] [id number] Discharge Disposition: Auto Discharge Social History Tobacco [...] on filedocumented in this encounter Care Teams Hematology Nurse Relationship Specialty Start Date End Date Aria Thompson MD [address] [place] [address] PCP - General 12/03/17 documented as of this encounter
--- OUTSIDE RECORDS SUMMARY | 2024-03-19 02:04 | XMS_ITS | Encounter Summary ---
Author Organization [facility] Address [address] [place] [address] Care Team Providers Care Entomology Teacher Name Role Phone Unavailable Primary Care Provider Unavailabl e Encounter Details Date Type Department Care Team (Latest Contact Info) Description 03/10/2009 9:55 EDT - 03/10/2009 9:56 EDT Hospital Encounter [facility] - Other [address] [place] [address] Pavan Zurita MD Discharge Disposition: Home or Self Care Social History Tobacco Use Types Packs/Day Years Used Date Smoking Tobacco: Never Assessed Sex and Gender Information Value Date Recorded Sex Assigned at Not on file Gender Identity Not on file Sexual Orientation Not on file documented as of this encounter Discharge Disposition Disposition Code Departure Means Destination Home or Self Care documented in this encounter Plan of Treatment Not on file documented as of this encounter Procedures Procedure Name Priority Date/Time Associated Diagnosis Comments SURGICAL PATHOLOGY Routine 05/28/2009 0:00 EDT documented in this encounter Results * SURGICAL PATHOLOGY (05/28/2009 0:00 EDT) Pathology Report: SURGICAL PATHOLOGY REPORT ? Reports generated via electronic interface contain original data; ? however they are lacking the format of the original report. ? Caution should be taken when reading/interpreti ng unformatted reports. ? Name: ? BRY, SKYLA L ? Accession #: ? [id number] ? : ? 1960 (Age: 48) ??F ? Collect Date: ? 05/28/2009 ? Location: ? [facility] ? Receive Date: ? 05/28/2009 ? Provider: PAVAN ZURITA MD ? Copy to: NNAMDI JUS MD ? Final Pathologic Diagnosis: ? A. ?Colon, right, biopsies: ? 1. ?No pathologic features. ? B. ?Colon, transverse, biopsies: ? 1. ?No pathologic features. ? C. ?Colon, left, biopsies: ? 1. ?Mildly active chronic colitis. ??See comment. ? D. ?Colon, 0 ??30.0 cm, biopsies: ? 1. ?? Moderately active chronic colitis. ??See comment. ? Comment: ? Sections from left colon and 0 ??30.0 cm show a chronic active colitis ? characterized by architectural distortion, basally oriented increased ? inflammatory infiltrate within the lamina propria and acute cryptitis (C) and ?? abscess formation (D). ??No granulomas are identified. There is no evidence of ?? dysplasia in all of the biopsies reviewed. ??These findings are compatible with ?? idiopathic inflammatory bowel disease in the appropriate clinical setting. ??(Dr. Silva)/[facility] ? Document reviewed and electronically signed by: ? Mirta Alberto. Ricardo, MD ? Report ??Date: 05/31/2009 16:09 ? By the signature above, the attending physician certifies that he/she has ? personally conducted a gross and/or microscopic examination of the described ? specimens and rendered or confirmed the above diagnosis. ? Specimen(s) Received: ? A. ?Right colon ? B. ? Transverse colon ? C. ? Left colon ? D. ? 0.0 cm ??30.0 cm ? Clinical History: ? H/O U.C.; A. - C. Normal; D. Mild inflammation ? Gross Description: ? Received in [facility] fixative labelled [place], Skyla and right colon ?? are multiple, corea-yellow, irregular soft tissue fragments ranging in size from ?? 1.0 x 0.4 x 0.2 cm to 0.3 x 0.2 x 0.2 cm. ??Submitted entirely as (A1) and (A2). ? Received in [facility]'s fixative labelled [place], Skyla and transverse colon ?? are multiple yellow-corea, irregular soft tissue fragments ranging in size from ?? 0.7 x 0.4 x 0.2 cm to 0.2 x 0.2 x 0.2 cm, submitted entirely as (B1) and (B2). ? [facility] labelled [place], Skyla and left colon are ? three yellow-corea, irregular soft tissue fragments ranging in size from 0.7 x 0.3 x 0.2 cm to 0.6 x 0.4 x 0.2 cm, submitted entirely as (C). ? Received in [facility]'s fixative labelled [place], Skyla and 0.0 cm to 30.0 cm ?? are multiple yellow-corea, irregular soft tissue fragments ranging in size from ?? 0.5 x 0.3 x 0.2 cm to 0.2 x 0.2 x 0.2 cm, submitted entirely as (D1) and (D2). ?? (T. Liz)/[facility] ? End of Report ? MONIKA CAMPOS 05/28/2009 05/28/2009 19: 03 EDT Pavan Zurita MD PATHOLOGY ORDERABLES Performing Organization Address City/State/[facility] Co de Phone Number [facility] [address] [place] [phone] documented in this encounter Visit Diagnoses Not on filedocumented in this encounter
--- OUTSIDE RECORDS SUMMARY | 2024-03-19 02:04 | XMS_ITS | Encounter Summary ---
Author Organization [facility] Address [address] [place] [address] Care Team Providers Care General Worker Name Role Phone Bartolo Landon MD Primary Care Provider [phone] Encounter Details Date Type Department Care Team (Late st Contact Info) Description 08/31/2004 Results Only [facility] [address] [place] [address] Unknown, Provider, Social History Tobacco Use Types Packs/Day Years Used Date Smoking Tobacco: Never Assessed Sex and Gender Information Value Date Recorded Sex Assigned at Not on file Gender Identity Not on file Sexual Orientation Not on file documented as of this encounter Plan of Treatment Not on file documented as of this encounter Procedures Procedure Name Priority Date/Time Associated Diagnosis Comments VITAMIN B12 Routine 08/31/2004 20:42 EST documented in this encounter Results * VITAMIN B12 (08/31/2004 20:42 EST) Vitamin B-12 693 250 - 1100 pg/ml [facility] 08/31/2004 20:4 2 EST 09/01/2004 21:27 EST Provider Unknown CHEMISTRY & BLOOD GA S ORDERABLES [facility] [address] [place] [address] documented in this encounter Visit Diagnoses Not on filedocumented in this encounter Care Teams General Worker Relationship Specialty Start Date End Date Bartolo Landon MD [address] [place] [address] PCP - General 03/12/09 12/02/17 documented as of this encounter
--- OUTSIDE RECORDS SUMMARY | 2024-03-19 02:04 | XMS_ITS | Encounter Summary ---
Author Organization [facility] Address [facility] [address] Care Team Providers Care Sales Management Trainee Name Role Phone Pradeep Gallardo APRN Primary Care Provider [phone] Encounter Details Date Type Department Care Team (Latest Contact Info) Description 01/17/2024 Travel Social History Tobacco Use Types Packs/Day Years [...] as of this encounter Plan of Treatment Upcoming Encounters Date Type Department Care Team (Late st Contact Info) Description 06/25/2024 9:30 AM EDT Office Visit [place] [address] Janice Villarreal MD [facility] [place] [address] documented as of this encounter Visit Diagnoses Not on filedocumented in this encounter Care Teams Sales Management Trainee Relationship Specialty Start Date End Date Pradeep Gallardo APRN [facility] [address] [place] [address] PCP - General 07/19/10 documented as of this encounter
--- OUTSIDE RECORDS SUMMARY | 2024-03-19 02:04 | XMS_ITS | Encounter Summary ---
Author Organization [facility] [place] [address] Care Team Providers Care Schedule Manager Name Role Phone Pradeep Gallardo APRN Primary Care Provider [phone] Encounter Details Date Type Department Care Team (Late st Contact Info) Description 02/18/2024 [place] [phone] Talya Flynn Social History Tobacco Use Types Packs/Day Years [...] 9:30 AM EDT Office [place] [address] Janice Villarreal MD [facility] [address] documented as of this encounter Visit Diagnoses Not on filedocumented in this encounter Care Teams Schedule Manager Relationship Specialty Start Date End Date Pradeep Gallardo APRN [facility] [address] [place] [address] PCP - General 07/19/10 documented as of this encounter
--- OUTSIDE RECORDS SUMMARY | 2024-03-19 02:04 | XMS_ITS | Encounter Summary ---
[place] [address] Care Team Providers Care Data Review Specialist Name Role Phone Pradeep Gallardo APRN Primary Care Provider [phone] Reason for Referral * Diagnostic Test (Routine) - Pending Review Specialty Diagnoses / Procedures Referred By Contac t Referred To Contact Radiology Diagnoses Transaminitis Procedures MRI Cholangiopancreatography WO Contrast Janice Villarreal MD [facility] [place] [address] [place] [address] Referral ID Status Reason Start Date Expiration Date Visits Requested Visits Authorized [id number] Pending Review Specialty Service Requested 12/26/2023 06/27/2025 1 1 Reason for Visit * Diagnostic Test (Routine) - Pending Review Specialty Diagnoses / Procedures Referred By Contac t Referred To Contact Radiology Diagnoses Transaminitis Procedures MRI Cholangiopancreatography WO Contrast Janice Villarreal MD [facility] [place] [address] [place] [address] Referral ID Status Reason Start Date Expiration Date Visits Requested Visits Authorized [id number] Pending Review Specialty Service Requested 12/26/2023 06/27/2025 1 1 Encounter Details Date Type Department Care Team (Latest Contact Info) Description 01/17/2024 8:08 AM EDT - 01/17/2024 11:59 PM EDT Hospital [place] [phone] Janice Villarreal MD [facility] [place] [address] Transaminitis Discharge Disposition: Home Social History Tobacco Use Types Packs/Day Years Used Date Smoking Tobacco: Former Cigarettes Q uit: 03/23/2003 Smokeless Tobacco: Never Alcohol Use Standard Drinks/Week Comments Never 0 (1 standard drink = 0.6 oz pur e alcohol) Sex and Gender Information Value Date Recorded Sex Assigned at Not on file Gender Identity Not on file Sexual Orientation Not on file documented as of this encounter Medications at Time of Discharge Medication Sig Dispensed Refills Start Date End Date cholecalciferol, Vitamin D3, 10 mcg (400 unit) Capsule Take 800 Units by mouth daily. psyllium Take 1 packet by mouth daily. 90 packet 3 06/13/2023 polyethylene glycoL (Miralax) 17 gram/dose Powder Take 17 g by mouth daily as needed. 255 g 3 06/13/2023 multivitamin (THERAGRAN) Tablet Take 1 tablet by mouth daily. inFLIXimab (Remicade) 100 mg Recon Soln Inject into the vein. OXcarbazepine (Trileptal) 300 mg Tablet Take 1,050 mg by mouth daily. OXcarbazepine (TRILEPTAL) 300 mg tablet 04/04/2002 documented as of this encounter Plan of Treatment Upcoming Encounters Date Type Department Care Team (Late st Contact Info) Description 06/25/2024 9:30 AM EDT Office Visit [place] [address] Janice Villarreal MD [facility] [place] [address] documented as of this encounter Procedures Procedure Name Priority Date/Time Associated Diagnosis Comments MRI CHOLANGIOPANCREATOGRAPHY Routine 9:20 AM EDT Transaminitis documented in this encounter Results * MRI Cholangiopancreatography WO Contrast (01/17/2024 9:20 AM EDT) WORKSTATION ID [id number] RAD Anatomical Region Laterality Modality Magnetic Resonan ce Impressions 01/17/2024 11:00 AM EDT No stricture or beading to suggest PSC. Thank you for letting us participate in the care of this patient. ??If you are a health care provider and have any questions regarding this report, please contact the number below. ??For patients who have questions please contact the health day care center director that requested your imaging first. ? Electronically signed by: MUNA CAMPBELL MD, [facility] ([phone]), at 01/17/2024 11:00 AM Narrative 01/17/2024 11:00 [...] focal marrow signal abnormality. Procedure Note Muna Campbell MD - 01/17/2024 EXAMINATION: MRI CHOLANGIOPANCREATOGRAPHY WO [...] patients who have questions please contactthe health day care center director that requested your imaging first. Electronically signed by: MUNA CAMPBELL MD, [facility]([phone]), at 01/17/2024 11:00 AM Janice Villarreal MD IMG MRI ORDERABLES documented in this encounter Visit Diagnoses Diagnosis Transaminitis Nonspecific elevation of levels of transaminase or lactic acid dehydrogenase (LDH) documented in this encounter Care Teams Data Review Specialist Relationship Specialty Start Date End Date Pradeep Gallardo APRN [address] [address] PCP - General 07/19/10 documented as of this encounter
--- OUTSIDE RECORDS SUMMARY | 2024-03-19 02:04 | XMS_ITS | Encounter Summary ---
Author Organization [facility] Address [address] [place] [address] Care Team Providers Care Prototype Engineer Name Role Phone Aria Thompson MD Primary Care Provider Encounter Details Date Type Department Care Team (Late st Contact Info) Description 05/26/2018 10:14 EDT - 05/26/2018 23:59 EDT Hospital Encounter [facility] Neurophysiology - [facility] [address] [place] [address] Unknown, Provider, Idris Hdez MD PhD [address] [facility] [place] [address] Discharge Disposition: Auto Discharge Social History Tobacco [...] on filedocumented in this encounter Care Teams Prototype Engineer Relationship Specialty Start Date End Date Aria Thompson MD [address] [place] [address] PCP - General 12/03/17 documented as of this encounter
--- OUTSIDE RECORDS SUMMARY | 2024-03-19 02:04 | XMS_ITS | Encounter Summary ---
Author Organization [facility] [place] [address] Care Team Providers Care Electromechanical Technician Name Role Phone Paulina Pradeep PATRIC Primary Care Provider [phone] Encounter Details Date Type Department Care Team (Late st Contact Info) Description 03/14/2024 Orders [place] [phone] Janice Villarreal MD [facility] [place] [address] Ulcerative pancolitis without complication Social History Tobacco Use Types Packs/Day Years [...] 9:30 AM EDT Office [place] [phone] Janice Villarreal MD [facility] [place] [address] Scheduled Orders Name Type Priority Associated Diagnoses Orde r Schedule Infliximab Level Lab Routine Ulcerative pancolitis without complication Expected: 03/14/2024, Expires: 09/13/2024 documented as of this encounter Visit Diagnoses Diagnosis Ulcerative pancolitis without complication documented in this encounter Care Teams Electromechanical Technician Relationship Specialty Start Date End Date Pradeep Gallardo APRN [address] [address] PCP - General 07/19/10 documented as of this encounter
--- OUTSIDE RECORDS SUMMARY | 2024-03-19 02:04 | XMS_ITS | Encounter Summary ---
Author Organization [facility] Address [address] [place] [address] Care Team Providers Care Cigarette Making Machine Hopper Feeder Name Role Phone Aria Thompson MD Primary Care Provider Reason for Visit * Reason Onset Date Comments Appointment Related 02/28/2018 Encounter Details Date Type Department Care Team (Late st Contact Info) Description 02/28/2018 Telephone [facility] Neurophysiology - [facility] [place] [address] [place], [place] [address] Cnl, Eeg Schedule, Appointment Related Social History Tobacco Use Types [...] encounter Miscellaneous Notes * Telephone Encounter - Dorinda Devries - 03/04/2018 0842 EDT I think the patient wanted the test to be done the same day and the 72-hour was overlooked. I will call to reschedule for 72-hour ambulatory EEG. * Telephone Encounter - Dale Perkins - 02/28/2018 1002 EDT Lois from [facility] called stating that the EEG Standard scheduled 03/21/18 was sent as a 72 hour ambulatory EEG. documented in this encounter Plan of Treatment Not on file documented as of this encounter Visit Diagnoses Not on filedocumented in this encounter Care Teams Cigarette Making Machine Hopper Feeder Relationship Specialty Start Date End Date Aria Thompson MD [address] [place] [address] PCP - General 12/03/17 documented as of this encounter
--- OUTSIDE RECORDS SUMMARY | 2024-03-19 02:04 | XMS_ITS | Encounter Summary ---
Author Organization [facility] Address [address] [place] [address] Care Team Providers Care Cleaner Name Role Phone Unavailable Primary Care Provider Unavailabl e Encounter Details Date Type Department Care Team (Latest Contact Info) Description 04/13/2006 8:59 EDT - 04/13/2006 11:59 EDT Hospital Encounter [facility] [address] [place] [address] Michel Balderrama MD Discharge Disposition: Auto Discharge Social History Tobacco Use Types Packs/Day Years Used Date Smoking Tobacco: Never Assessed Sex and Gender Information Value Date Recorded Sex Assigned at Not on file Gender Identity Not on file Sexual Orientation Not on file documented as of this encounter Discharge Disposition Disposition Code Departure Means Destination Auto Discharge documented in this encounter Plan of Treatment Not on file documented as of this encounter Procedures Procedure Name Priority Date/Time Associated Diagnosis Comments COMPLETE BLOOD COUNT Routine 03/10/2009 14:00 EDT L SPINE 2-3 VIEWS 04/13/2006 10: 00 EDT documented in this encounter Results * (ABNORMAL) HEMAGRAM (03/10/2009 14:00 EDT) WBC 9.40 4.0 - 12.4 K/cmm [facility] RBC 3.55(L) 3.86 - 5.04 M/cmm [facility] Hemoglobin 11.5(L) 11.6 - 15.2 gm/dl [facility] HCT 33.3(L) 34.9 - 44.4 % [facility] MCV 94 81 - 98 fl [facility] MCH 32.4 26.7 - 33.3 pg [facility] MCHC 34.6 32.1 - 35.9 gm/dl [facility] PLT 330(H) 141 - 320 K/cmm [facility] RDW-CV 14.7(H) 11.7 - 14.6 % [facility] 03/10/2009 14:0 0 EDT 03/10/2009 20:02 EDT Pavan Zurita MD HEMATOLOGY & PF4 ORD ERABLES [facility] [address] [place] [address] * L SPINE 2-3 VIEWS (04/13/2006 10:00 EDT) Anatomical Region Laterality Modality Other 04/13/2006 10:0 0 EDT Narrative 03/13/2009 14:35 EDT ACUTE BACK PAIN. R/O SPONDYLOLISTHESIS L5-S1. DOI:03/25/06. LUMBAR SPINE, 3 VIEWS 04/13/2006 FINDINGS: ??There are 5 type lumbar vertebrae. ??The vertebral body heights are normal. ??There is severe narrowing of the L5-S1 disc space. ??There is grade 2 anterolisthesis of L5 over S1, which does not change significantly from flexion to extension. ??There is bilateral pars defect at L5. ??There are hypertrophic changes within the facets joints of L3-L4 and L4-L5. ??There is facet joint hypertrophy on the left side of L2-L3. IMPRESSION: ??Degenerative spondylosis of the lumbar spine, worse at L5-S1 associated with bilateral spondylosis and grade 2 spondylolisthesis anteriorly L5 over S1. T: ??04/15/2006 /kma Procedure Note Pola Handley MD - 03/13/2009 ACUTE BACK PAIN. R/O SPONDYLOLISTHESIS L5-S1. DOI:03/25/06. LUMBAR SPINE, 3 VIEWS 04/13/2006 FINDINGS: There are 5 type lumbar vertebrae. The vertebral body heights are normal. There is severe narrowing of the L5-S1 disc space. There is grade 2 anterolisthesis of L5 over S1, which does not change significantly from flexion to extension. There is bilateral pars defect at L5. There are hypertrophic changes within the facets joints of L3-L4 and L4-L5. There is facet joint hypertrophy on the left side of L2-L3. IMPRESSION: Degenerative spondylosis of the lumbar spine, worse at L5-S1 associated with bilateral spondylosis and grade 2 spondylolisthesis anteriorly L5 over S1. /shruthi Michel Balderrama MD IMG DIAGNOSTIC IMAG ING ORDERABLES documented in this encounter Visit Diagnoses Not on filedocumented in this encounter
--- OUTSIDE RECORDS SUMMARY | 2024-03-19 02:04 | XMS_ITS | Encounter Summary ---
Author Organization [facility] Address [address] [place] [address] Care Team Providers Care Compressed Gas Plant Worker Name Role Phone Unavailable Primary Care Provider Unavailabl e Encounter Details Date Type Department Care Team (Latest Contact Info) Description 07/04/2005 18:38 EST Hospital Encounter [facility] - Other [address] [place] [address] Mandi Sawyer, KATE [address] [place] [phone] Discharge Disposition: Home or Self Care Social [...]
--- OUTSIDE RECORDS SUMMARY | 2024-03-19 02:04 | XMS_ITS | Encounter Summary ---
Author Organization [facility] [place] [address] Care Team Providers Care Non Destructive Testing Engineer Name Role Phone Paulina Pradeep PATRIC Primary Care Provider [phone] Encounter Details Date Type Department Care Team (Latest Contact Info) Description 01/17/2024 10:10 AM EDT Laboratory Appointment Lab [address] [place] [phone] Ulcerative pancolitis without complication; Transaminitis Social History Tobacco Use Types Packs/Day Years [...] 9:30 AM EDT [place] [address] Janice Villarreal MD [facility] [place] [address] documented as of this encounter Procedures Procedure Name Priority Date/Time Associated Diagnosis Comments [facility] INFLIXIMAB QUANT Routine 01/17/2024 9:47 AM EDT Ulcerative pancolitis without complication COMPREHENSIVE METABOLIC PANEL (NON-FASTING) Routine 01/17/2024 9:47 AM EDT Transaminitis documented in this encounter Results * (ABNORMAL) Comprehensive metabolic panel (non-fasting) (01/17/2024 9:47 AM EDT) Glucose Lvl 107 65 - 199 mg/dL [facility] Comment:Diabetes: >=200 mg/d L plus symptoms BUN 13 8 - 18 mg/dL [facility] Creatinine 0.62(L) 0.70 - 1.20 mg/dL [facility] Sodium 133(L) 135 - 145 mmol/L [facility] Potassium 4.4 3.5 - 5.0 mmol/L [facility] Comment: Please note: ??Patients with WBC >100,000 may have falsely elevated Potassium levels. ??For accurate Potassium quantification in these patients send serum separator tube (gold top) for subsequent determinations. ??Contact the Clinical Chemistry Laboratory if there are any questions. Chloride 97(L) 98 - 107 mmol/L [facility] CO2 27 22 - 31 mmol/L [facility] Anion Gap 9 5 - 15 mmol/L [facility] Calcium 9.3 8.5 - 10.5 mg/dL [facility] Total Protein 6.8 6.1 - 8.0 g/dL [facility] Albumin 4.5 3.2 - 5.2 g/dL [facility] AST 33(H) 0 - 30 unit/L [facility] ALT 42(H) 0 - 30 unit/L [facility] Alk Phos 84 35 - 105 unit/L [facility] Total Bilirubin 0.3 0.2 - 1.3 mg/dL [facility] Estimated GFR 99 >=60 mL/min/1. 73 m?? [facility] Comment: This patient's estimated GFR was [...] and symptoms in addition to eGFR. Blood 01/17/2024 9:47 AM EDT 01/17/2024 10:00 AM EDT Narrative Resulting Agency Comment Spec In Lab Janice Villarreal MD CHEMISTRY ORDERABLES Performing Organization Address [facility]/State/[facility] Co de Phone Number [facility] [place] [address] * Infliximab Level (01/17/2024 9:47 AM EDT) Infliximab Level Test ? Result ?Flag ??Unit ?RefValue ------- Infliximab QN with Reflex to Ab, S ??Infliximab, S ?8.0 ? mcg/mL ? ---REFERENCE VALUE ?Limit of Quantitation = 1.0 mcg/mL ??Interpretation ? SEE COMMENTS ?For clinical assessment of response to therapy, infliximab ?should be measured at trough. When infliximab trough ?concentrations are greater than 5.0 mcg/mL, clinically ?relevant agaickirye-xb-atkz iximab are unlikely and reflex ?testing will not be performed. ? ---ADDITIONAL INFORMATION------- ?This test was developed and its performance characteristics ?determined by [facility] in a manner consistent with CLIA ?requirements. This test has not been cleared or approved by ?the U.S. Food and Drug Administration. ?Test Performed by: ?[facility] ?[address] [place] [address] ?Cut Plug Packer: Basil Retana M.D. Ph.D.; CLIA# [id number] [facility] Blood 01/17/2024 9:47 AM EDT 01/17/2024 12:31 PM EDT Narrative Resulting Agency Comment Spec In Lab Janice Villarreal MD CHEMISTRY ORDERABLES Performing Organization Address City/State/[facility] Co de Phone Number [facility] [place] [address] documented in this encounter Visit Diagnoses Diagnosis Ulcerative pancolitis without complication Transaminitis Nonspecific elevation of levels of transaminase or lactic acid dehydrogenase (LDH) documented in this encounter Care Teams Non Destructive Testing Engineer Relationship Specialty Start Date End Date Pradeep Gallardo APRN [facility] [address] [place] [address] PCP - General 07/19/10 documented as of this encounter
--- OUTSIDE RECORDS SUMMARY | 2024-03-19 02:04 | XMS_ITS | Encounter Summary ---
Author Organization [facility] Address [address] [place] [address] Care Team Providers Care Costing Analyst Name Role Phone Aria Thompson MD Primary Care Provider Encounter Details Date Type Department Care Team (Late st Contact Info) Description 05/27/2018 9:45 EDT - 05/27/2018 23:59 EDT Hospital Encounter [facility] Neurophysiology - [facility] [address] [place] [address] Unknown, Provider, Idris Hdez MD PhD [address] [facility]. [address] [place] [address] Discharge Disposition: Auto Discharge Social History Tobacco [...] Procedure Name Priority Date/Time Associated Diagnosis Comments EEG - SCANNED 05/29/2018 13:49 EDT documented in this encounter Results * EEG - SCANNED (05/29/2018 13:49 EDT) 05/29/2018 13:4 9 EDT Scan 2 Field Nurse Case Manager PROCEDURE/MINOR ARASH GICAL ORDERABLES documented in this encounter Visit Diagnoses Not on filedocumented in this encounter Care Teams Costing Analyst Relationship Specialty Start Date End Date Aria Thompson MD [address] [place] [address] PCP - General 12/03/17 documented as of this encounter
--- OUTSIDE RECORDS SUMMARY | 2024-03-19 02:04 | XMS_ITS | Encounter Summary ---
Author Organization [facility] Address [address] [place] [address] Care Team Providers Care Kiln Furniture Caster Name Role Phone Aria Thompson MD Primary Care Provider Reason for Visit * Reason Onset Date Comments Appointment Related 01/14/2018 Encounter Details Date Type Department Care Team (Late st Contact Info) Description 01/14/2018 Telephone [facility] Vascular Surgery - [facility] [address] [place], [place] [phone] Everette Boggs MD [address] [facility], [address] [place] [address] Appointment Related Social History Tobacco Use Types Packs/Day Years Used Date Smoking Tobacco: Former Cigarettes Smokeless Tobacco: Never Sex and Gender Information [...] as visiting a doctor's office or shopping? No 12/03/2017 Cognitive Status Response Date of Assessm ent Because of a physical, menta l, or emotional condition, does this person have serious difficulty concentrating, remembering, or making decisions? No 12/03/2017 documented as of this encounter Miscellaneous Notes * Telephone Encounter - Macrina Guzman - 01/14/2018 0911 EDT Called and left message for Ms. Lujan regarding her CTA scan and Dr. Boggs follow up appointment that was initially scheduled for Sunday01/14/18. Vascular Surgery office received noticed that Ms. Lujan cancelled her CTA scan through Radiology dueto being sick with bronchitis. New date/time for patient to follow up with Dr. Boggs and have her CTA scan done is now Sunday02/08/18 checking in at level 3 Registration at 8:30 AM for a 9:00 AM scan. Following the scan patient will then come up to level 5 Vascular [address] to see Dr. Boggs at 9:45 AM. Advised patient in message to please contact office back if she has any questions or if this new date/time does not work for her. documented in this encounter Plan of Treatment Not on file documented as of this encounter Visit Diagnoses Not on filedocumented in this encounter Care Teams Kiln Furniture Caster Relationship Specialty Start Date End Date Aria Thompson MD [address] [place] [address] PCP - General 12/03/17 documented as of this encounter
--- OUTSIDE RECORDS SUMMARY | 2024-03-19 02:04 | XMS_ITS | Encounter Summary ---
Author Organization [facility] Address [address] [place] [address] Care Team Providers Care Metal Model Maker Name Role Phone Bartolo Landon MD Primary Care Provider Encounter Details Date Type Department Care Team (Late st Contact Info) Description 07/04/2005 Results Only [facility] [place] conversion [address] [place] [address] Mandi Sawyer PA [address] [place] [phone] Social History Tobacco Use Types Packs/Day Years Used Date Smoking Tobacco: Never Assessed Sex and Gender Information Value Date Recorded Sex Assigned at Not on file Gender Identity Not on file Sexual Orientation Not on file documented as of this encounter Plan of Treatment Not on file documented as of this encounter Procedures Procedure Name Priority Date/Time Associated Diagnosis Comments SURGICAL PATHOLOGY Routine 07/04/2005 0:00 EST documented in this encounter Results * SURGICAL PATHOLOGY (07/04/2005 0:00 EST) Pathology Report: SURGICAL PATHOLOGY REPORT Reports generated via electronic interface contain original data; however they are lacking the format of the original report. Caution should be taken when reading/interpreting unformatted reports. Name: ? SKYLA LONDONO ? Accession #: ? [id number] ? : ? 1960 (Age: 44) ??F ? Collect Date: ? 07/04/2005 ? Location: ? [facility] ? Receive Date: ? 07/05/2005 ? Provider: MANDI LOVE Copy to: ? Final Pathologic Diagnosis: ? Skin of hip, right, punch biopsy: - Superficial dermatitis, consistent with urticaria. ??See comment. Comment: ? The histologic features are consistent with the clinical impression of urticaria. ??There is no evidence of vasculitis. ??(Dr. Villa)/[facility] [place] Microscopic Description: ? Sections consist of a punch biopsy of skin to the deep reticular dermis. The epidermis and stratum corneum are unremarkable. ??There is no appreciable spongiosis and the interface is intact. ??Within the dermis, there is a sparse perivascular and interstitial inflammatory infiltrate. ??The infiltrate is composed of eosinophils and rare neutrophils, in addition to lymphomononuclear cells. ??There is mild dermal edema. ??The vessels show mild reactive changes but there is no evidence of vasculitis. (Dr. Villa)/[facility] [place] Document reviewed and electronically signed by: SANDRA VILLA MD Report ??Date: 07/06/2005 15:49 By the signature above, the attending physician certifies that he/she has personally conducted a gross and/or microscopic examination of the described specimens and rendered or confirmed the above diagnosis. Specimen(s) Received: ? R hip Clinical History: ? Hx ??mild ulcerative colitis; urticaria Gross Description: ? Received in formalin labelled Tai and R hip is a punch biopsy of corea-pink skin measuring 0.3 cm in diameter and 0.2 cm in thickness. ??The specimen is submitted intact in one cassette. ??(Dr. Echols)/kmm End of Report [facility] 07/04/2005 07/05/2005 13: 22 EST Mandi LOVE PATHOLOGY ORDERABL ES Performing Organization Address City/State/[facility] Co de Phone Number [facility] [address] [place] [address] documented in this encounter Visit Diagnoses Not on filedocumented in this encounter Care Teams Metal Model Maker Relationship Specialty Start Date End Date Bartolo Landon MD [address] [place] [address] PCP - General 03/12/09 12/02/17 documented as of this encounter
--- OUTSIDE RECORDS SUMMARY | 2024-03-19 02:04 | XMS_ITS | Encounter Summary ---
Author Organization [facility] Address [address] [place] [address] Care Team Providers Care Shop Laborer Name Role Phone Aria Thompson MD Primary Care Provider Reason for Visit * Reason Onset Date Comments Appointment Related 12/03/2017 Encounter Details Date Type Department Care Team (Late st Contact Info) Description 12/03/2017 Telephone [facility] Vascular Surgery - [address] [phone] Everette Boggs MD [address] [facility], [address] [place] [address] Appointment Related Social History Tobacco [...] * Telephone Encounter - Macrina Guzman - 12/03/2017 1634 EDT Called Ms. Lujan to let her know that we scheduled her CT scan on Sunday12/31/17 with arrival time of8:00 AM at 3rd floor registration. Also told Ms. Lujan that she could have a light breakfast or lunch prior to the CT scan. Also reminded her that should she have any questions to not hesitate to call us. Patient understands the above instructions and will be there. documented in this encounter Plan of Treatment Not on file documented as of this encounter Visit Diagnoses Not on filedocumented in this encounter Care Teams Shop Laborer Relationship Specialty Start Date End Date Aria Thompson MD [address] [place] [address] PCP - General 12/03/17 documented as of this encounter
--- OUTSIDE RECORDS SUMMARY | 2024-03-19 02:04 | XMS_ITS | Encounter Summary ---
Author Organization [facility] Address [address] [place] [address] Care Team Providers Care Receptionist Doctor'S Office Name Role Phone Aria Thompson MD Primary Care Provider Encounter Details Date Type Department Care Team (Late st Contact Info) Description 02/08/2018 Results Only Imaging [facility] Vascular Surgery [facility] [address] [facility] [place] [address] Everette Boggs MD [address] [facility], [address] [place] [address] Social History Tobacco Use Types Packs/Day Years [...] visiting a doctor's office or shopping? Yes 01/28/2018 Cognitive Status Response Date of Assessm ent Because of a physical, menta l, or emotional condition, does this person have serious difficulty concentrating, remembering, or making decisions? Yes 01/28/2018 documented as of this encounter Plan of Treatment Not on file documented as of this encounter Procedures Procedure Name Priority Date/Time Associated Diagnosis Comments CT ANGIO UPPER EXTREMITY W/WO CONTRAST 02/18/2018 9:[address] ANGIO UPPER EXTREMITY W/WO CONTRAST 02/18/2018 9:30 EDT documented in this encounter Results * CT ANGIO UPPER EXTREMITY W/WO CONTRAST (02/18/2018 9:30 EDT) Anatomical Region Laterality Modality Other 02/18/2018 9:30 EDT 02/19/2018 17:13 EDT Narrative 02/19/2018 17:[address] ANGIO BILATERAL UPPER EXTREMITIES W/WO CONTRAST, CT ANGIO BILATERAL UPPER EXTREMITIES W/WO CONTRAST ??02/18/2018 9:30 AM Signs and Symptoms/Comments: ??R23.5-[id number]-NVW-10; CTA chest and bilateral upper extremity for h/o cyanotic right 1st finger and h/o right arm trauma. Rule out arterial stenosis. Comparison: None. TECHNIQUE: ??Prior to the intravenous injection of contrast media, precontrast CT scans were obtained from the lower lungs to the fingertips. Arterial and venous phase CT angiography of the upper extremities were then performed utilizing a multislice CT scanner following an intravenous bolus injection of nonionic contrast media. ?? Scanning was performed from the lower lungs to the fingertips, with arms positioned in extension above the head. 3-D reconstructions were performed on an independent workstation utilizing the coronal and sagittal MPR, radial CPR, and volume rendering algorithms. FINDINGS: Vascular findings: Right lower extremity: Normal three-vessel branching pattern from the aortic arch, with no flow-limiting stenosis of the great vessels. The brachiocephalic, subclavian, and axillary arteries are widely patent and free of a stenosis or aneurysm. There are scattered foci of soft plaque throughout the brachial artery resulting in several areas of mild stenosis (arterial axial 215-240), though evaluation is slightly diminished by metal artifact from dental hardware. The radial and ulnar arteries are normally opacified. The digital arteries are better opacified on the venous phase, which suggests some delay in flow. The deep palmar arch is not well identified. Assessment of the digital arteries is limited, though the proper palmar digital arteries of the index finger may be very slightly attenuated compared to the proper palmar digital arteries of the other digits (series 606 venous axial 671-715). Left lower extremity: Assessment is limited by some beam hardening and artifact related to the intravenous contrast media injection on this side. As on the right, the subclavian artery is widely patent. The axillary and proximal brachial artery cannot be confidently assessed, though the distal brachial artery is grossly patent. The radial and ulnar arteries are widely patent. Beyond the wrist, the left digits have a similar appearance to that seen on the right. Additional findings: Chambers of the heart are grossly within normal limits, on this nondedicated study. Minimal calcification of the aortic arch, and no appreciable calcification in the included coronary arteries. No significant abnormality of the lung parenchyma. Minimal subsegmental atelectasis of the lingula on the caudal most images. The included vessels and soft tissues of the neck without significant abnormality. There is a 1.9 x 1.3 x 2.0 cm hypoattenuating left thyroid nodule. The right thyroid is unremarkable. IMPRESSION: 1. Mild narrowing of the right brachial artery secondary to soft plaque, which does not appear to be hemodynamically significant. 2. No other significant vascular findings, though opacification of the digital arteries is better appreciated on venous phase, which suggests delayed flow, as can be seen with more proximal narrowing. 3. No significant difference in opacification of the digital arteries of either hand. Assessment of the digital arteries is also limited on these examinations. 4. Hypoattenuating 1.9 x 1.3 x 2.0 cm left thyroid lobe nodule. Consider ultrasound examination if there is any clinical concern. I have personally reviewed the images and the above interpretation and agree with the findings. Procedure Note Veto Wade MD - 02/19/2018 CT ANGIO BILATERAL UPPER EXTREMITIES W/WO CONTRAST, CT ANGIO BILATERAL UPPER EXTREMITIES W/WO CONTRAST 02/18/2018 9:30 AM Signs and Symptoms/Comments: R23.2-[id number]; CTA chest and bilateral upper extremity for h/o cyanotic right 1st finger and h/o right arm trauma. Rule out arterial stenosis. Comparison: None. TECHNIQUE: Prior to the intravenous injection of contrast media, precontrast CT scans were obtained from the lower lungs to the fingertips. Arterial and venous phase CT angiography of the upper extremities were then performed utilizing a multislice CT scanner following an intravenous bolus injection of nonionic contrast media. Scanning was performed from the lower lungs to the fingertips, with arms positioned in extension above the head. 3-D reconstructions were performed on an independent workstation utilizing the coronal and sagittal MPR, radial CPR, and volume rendering algorithms. FINDINGS: Vascular findings: Right lower extremity: Normal three-vessel branching pattern from the aortic arch, with no flow-limiting stenosis of the great vessels. The brachiocephalic, subclavian, and axillary arteries are widely patent and free of a stenosis or aneurysm. There are scattered foci of soft plaque throughout the brachial artery resulting in several areas of mild stenosis (arterial axial 215-240), though evaluation is slightly diminished by metal artifact from dental hardware. The radial and ulnar arteries are normally opacified. The digital arteries are better opacified on the venous phase, which suggests some delay in flow. The deep palmar arch is not well identified. Assessment of the digital arteries is limited, though the proper palmar digital arteries of the index finger may be very slightly attenuated compared to the proper palmar digital arteries of the other digits (series 606 venous axial 671-715). Left lower extremity: Assessment is limited by some beam hardening and artifact related to the intravenous contrast media injection on this side. As on the right, the subclavian artery is widely patent. The axillary and proximal brachial artery cannot be confidently assessed, though the distal brachial artery is grossly patent. The radial and ulnar arteries are widely patent. Beyond the wrist, the left digits have a similar appearance to that seen on the right. Additional findings: Chambers of the heart are grossly within normal limits, on this nondedicated study. Minimal calcification of the aortic arch, and no appreciable calcification in the included coronary arteries. No significant abnormality of the lung parenchyma. Minimal subsegmental atelectasis of the lingula on the caudal most images. The included vessels and soft tissues of the neck without significant abnormality. There is a 1.9 x 1.3 x 2.0 cm hypoattenuating left thyroid nodule. The right thyroid is unremarkable. IMPRESSION: 1. Mild narrowing of the right brachial artery secondary to soft plaque, which does not appear to be hemodynamically significant. 2. No other significant vascular findings, though opacification of the digital arteries is better appreciated on venous phase, which suggests delayed flow, as can be seen with more proximal narrowing. 3. No significant difference in opacification of the digital arteries of either hand. Assessment of the digital arteries is also limited on these examinations. 4. Hypoattenuating 1.9 x 1.3 x 2.0 cm left thyroid lobe nodule. Consider ultrasound examination if there is any clinical concern. I have personally reviewed the images and the above interpretation and agree with the findings. Everette Boggs MD [facility] [place] CT ORDERABLES * CT ANGIO UPPER EXTREMITY W/WO CONTRAST (02/18/2018 9:30 EDT) Anatomical Region Laterality Modality Other 02/18/2018 9:30 EDT 02/19/2018 17:13 EDT Narrative 02/19/2018 17:[address] ANGIO BILATERAL UPPER EXTREMITIES W/WO CONTRAST, CT ANGIO BILATERAL UPPER EXTREMITIES W/WO CONTRAST ??02/18/2018 9:30 AM Signs and Symptoms/Comments: ??R23.2-[id number]-10; CTA chest and bilateral upper extremity for h/o cyanotic right 1st finger and h/o right arm trauma. Rule out arterial stenosis. Comparison: None. TECHNIQUE: ??Prior to the intravenous injection of contrast media, precontrast CT scans were obtained from the lower lungs to the fingertips. Arterial and venous phase CT angiography of the upper extremities were then performed utilizing a multislice CT scanner following an intravenous bolus injection of nonionic contrast media. ?? Scanning was performed from the lower lungs to the fingertips, with arms positioned in extension above the head. 3-D reconstructions were performed on an independent workstation utilizing the coronal and sagittal MPR, radial CPR, and volume rendering algorithms. FINDINGS: Vascular findings: Right lower extremity: Normal three-vessel branching pattern from the aortic arch, with no flow-limiting stenosis of the great vessels. The brachiocephalic, subclavian, and axillary arteries are widely patent and free of a stenosis or aneurysm. There are scattered foci of soft plaque throughout the brachial artery resulting in several areas of mild stenosis (arterial axial 215-240), though evaluation is slightly diminished by metal artifact from dental hardware. The radial and ulnar arteries are normally opacified. The digital arteries are better opacified on the venous phase, which suggests some delay in flow. The deep palmar arch is not well identified. Assessment of the digital arteries is limited, though the proper palmar digital arteries of the index finger may be very slightly attenuated compared to the proper palmar digital arteries of the other digits (series 606 venous axial 671-715). Left lower extremity: Assessment is limited by some beam hardening and artifact related to the intravenous contrast media injection on this side. As on the right, the subclavian artery is widely patent. The axillary and proximal brachial artery cannot be confidently assessed, though the distal brachial artery is grossly patent. The radial and ulnar arteries are widely patent. Beyond the wrist, the left digits have a similar appearance to that seen on the right. Additional findings: Chambers of the heart are grossly within normal limits, on this nondedicated study. Minimal calcification of the aortic arch, and no appreciable calcification in the included coronary arteries. No significant abnormality of the lung parenchyma. Minimal subsegmental atelectasis of the lingula on the caudal most images. The included vessels and soft tissues of the neck without significant abnormality. There is a 1.9 x 1.3 x 2.0 cm hypoattenuating left thyroid nodule. The right thyroid is unremarkable. IMPRESSION: 1. Mild narrowing of the right brachial artery secondary to soft plaque, which does not appear to be hemodynamically significant. 2. No other significant vascular findings, though opacification of the digital arteries is better appreciated on venous phase, which suggests delayed flow, as can be seen with more proximal narrowing. 3. No significant difference in opacification of the digital arteries of either hand. Assessment of the digital arteries is also limited on these examinations. 4. Hypoattenuating 1.9 x 1.3 x 2.0 cm left thyroid lobe nodule. Consider ultrasound examination if there is any clinical concern. I have personally reviewed the images and the above interpretation and agree with the findings. Procedure Note Veto Wade MD - 02/19/2018 CT ANGIO BILATERAL UPPER EXTREMITIES W/WO CONTRAST, CT ANGIO BILATERAL UPPER EXTREMITIES W/WO CONTRAST 02/18/2018 9:30 AM Signs and Symptoms/Comments: R23.8-Lrgqgpfu-KKN-10; CTA chest and bilateral upper extremity for h/o cyanotic right 1st finger and h/o right arm trauma. Rule out arterial stenosis. Comparison: None. TECHNIQUE: Prior to the intravenous injection of contrast media, precontrast CT scans were obtained from the lower lungs to the fingertips. Arterial and venous phase CT angiography of the upper extremities were then performed utilizing a multislice CT scanner following an intravenous bolus injection of nonionic contrast media. Scanning was performed from the lower lungs to the fingertips, with arms positioned in extension above the head. 3-D reconstructions were performed on an independent workstation utilizing the coronal and sagittal MPR, radial CPR, and volume rendering algorithms. FINDINGS: Vascular findings: Right lower extremity: Normal three-vessel branching pattern from the aortic arch, with no flow-limiting stenosis of the great vessels. The brachiocephalic, subclavian, and axillary arteries are widely patent and free of a stenosis or aneurysm. There are scattered foci of soft plaque throughout the brachial artery resulting in several areas of mild stenosis (arterial axial 215-240), though evaluation is slightly diminished by metal artifact from dental hardware. The radial and ulnar arteries are normally opacified. The digital arteries are better opacified on the venous phase, which suggests some delay in flow. The deep palmar arch is not well identified. Assessment of the digital arteries is limited, though the proper palmar digital arteries of the index finger may be very slightly attenuated compared to the proper palmar digital arteries of the other digits (series 606 venous axial 671-715). Left lower extremity: Assessment is limited by some beam hardening and artifact related to the intravenous contrast media injection on this side. As on the right, the subclavian artery is widely patent. The axillary and proximal brachial artery cannot be confidently assessed, though the distal brachial artery is grossly patent. The radial and ulnar arteries are widely patent. Beyond the wrist, the left digits have a similar appearance to that seen on the right. Additional findings: Chambers of the heart are grossly within normal limits, on this nondedicated study. Minimal calcification of the aortic arch, and no appreciable calcification in the included coronary arteries. No significant abnormality of the lung parenchyma. Minimal subsegmental atelectasis of the lingula on the caudal most images. The included vessels and soft tissues of the neck without significant abnormality. There is a 1.9 x 1.3 x 2.0 cm hypoattenuating left thyroid nodule. The right thyroid is unremarkable. IMPRESSION: 1. Mild narrowing of the right brachial artery secondary to soft plaque, which does not appear to be hemodynamically significant. 2. No other significant vascular findings, though opacification of the digital arteries is better appreciated on venous phase, which suggests delayed flow, as can be seen with more proximal narrowing. 3. No significant difference in opacification of the digital arteries of either hand. Assessment of the digital arteries is also limited on these examinations. 4. Hypoattenuating 1.9 x 1.3 x 2.0 cm left thyroid lobe nodule. Consider ultrasound examination if there is any clinical concern. I have personally reviewed the images and the above interpretation and agree with the findings. Everette Boggs MD IMG CT ORDERABLES documented in this encounter Visit Diagnoses Not on filedocumented in this encounter Care Teams Receptionist Doctor'S Office Relationship Specialty Start Date End Date Aria Thompson MD [address] [place] [address] PCP - General 12/03/17 documented as of this encounter
--- OUTSIDE RECORDS SUMMARY | 2024-03-19 02:04 | XMS_ITS | Encounter Summary ---
Author Organization [facility] Address [address] [place] [address] Care Team Providers Care Psychologist Industrial Organizational Name Role Phone Aria Thompson MD Primary Care Provider Reason for Visit * Reason Comments New Patient Visit Encounter Details Date Type Department Care Team (Late st Contact Info) Description 12/03/2017 10:00 EDT Office Visit [facility] Vascular Surgery - [address] [id number] Everette Boggs MD [address] [place] [address] [address] [place] [address] Cyanotic fingertip (Primary Dx) Discharge Disposition: Auto Discharge Social History Tobacco Use Types Packs/Day Years Used Date Smoking Tobacco: Former Cigarettes Smokeless Tobacco: Never Tobacco Cessation:Counseling Given: Yes Sex and Gender Information Value Date Recorded Sex Assigned at Not on file Gender Identity Not on file Sexual Orientation Not on file documented as of this encounter Last Filed Vital Signs Vital Sign Reading Time Taken Comments Blood Pressure 170/100 12/03/2017 0952 EDT Pulse 60 12/03/2017 0950 EDT Temperature - - Respiratory Rate - - Oxygen Saturation - - Inhaled Oxygen Concentration - - Weight 63.5 kg (140 lb) 12/03/2017 0938 EDT Height 157.5 cm (5' 2) 12/03/2017 0938 EDT Body Mass Index 25.61 12/03/2017 0938 EDT documented in this encounter Functional Status [...] No 12/03/2017 documented as of this encounter Discharge Disposition Disposition Code Departure Means Destination Auto Discharge documented in this encounter Progress Notes * Everette Boggs MD - 12/03/2017 1501 EDT This office note has been dictated. Everette Boggs MD 12/03/2017 15:01 documented in this encounter Consult Notes * Everette Boggs MD - 12/03/2017 0000 EDT [facility] VASCULAR SURGERY CONSULTATION - 12/03/2017 Aria Thompson MD [address] Thompson: I saw Elsa Lujan today in consultation for recent episode of right 1st finger ischemia. I was contacted by an outside emergency room where she presented with chest pain and a cyanotic right 1st finger. She has no history of atrial fibrillation. She is a former smoker. She notes that the finger has returned to normal over the weekend. It was associated with some swelling and numbness. The other fingers on the right hand and the entire left hand were uninvolved. She had a duplex in my vascular lab today, which shows normal flow throughout her right upper extremity. Her wrist pressure is normal and her digital pressure is 149 on the right and 141 on the left. Duplex throughout the subclavian, a xillary, brachial, radial and ulnar arteries failed to show any obstruction. The patient herself gives no prior history of this. She does give a remote history of a fall, which sounds fairly significant and was braced by her right arm, which she claims led to nerve damage in her upper extremity. She is right-hand dominant. Her medications include Trileptal for a history of seizures and Lamictal. She reports an allergy to SULFA. Former smoker. Review of systems is positive for chest pain last week, history of seizures 19 years ago. Family History: Unremarkable. On exam, well appearing, stated age, no distress. Blood pressures are elevated at 170/100 bilaterally. Her neck was without bruits. Supraclavicular fossa without bruits. Her radial and ulnar pulses are palpable bilaterally with good Doppler signals over each and along the palmar arch. Both hands are warm and well perfused with good capillary refill, pink, normal temperature skin with no ulceration. Impression and Plan: A 57-year-old woman with a transient episode of right 1st finger ischemia. Thedifferential for this is quite broad. On the surface, it does not seem like a simple Raynaud's phenomenon since it involved only 1 finger without any triggering symptoms of stress or cold. Thus far, there seems to be no known history of arrhythmia. I have ordered a CT angiogram to completely rule out any proximal subclavian source that may not have been seen in the duplex and to look for any occult injury to the vessel that may have occurred as a result of a remote fall. Other potential causes include altered vasomotor or sympathetic tone to the vessels because of a prior trauma. I have referred her to neurology at her request for a second opinion about her seizure disorder and the possibility of nerve injury in the right arm. Everette Boggs MD 03 01 PM - Everette Boggs MD Dictation ID: [id number] cc: Aria Thompson MD, [address] [address] documented in this encounter Plan of Treatment Not on file documented as of this encounter Visit Diagnoses Diagnosis Cyanotic fingertip- Primary Cyanosis documented in this encounter Historical Medications * This list may reflect changes made after this encounter. Medication Sig Dispensed Refills Start Date End Date lamoTRIgine (LAMICTAL) 25 mg tablet Take 25 mg by mouth 2 times daily. 01/28/2018 OXcarbazepine (TRILEPTAL) 300 mg tablet Take 300 mg by mouth 4 times daily. 06/10/2018 added in this encounter Care Teams Psychologist Industrial Organizational Relationship Specialty Start Date End Date Aria Thompson MD [address] [place] [address] PCP - General 12/03/17 documented as of this encounter
--- OUTSIDE RECORDS SUMMARY | 2024-03-19 02:04 | XMS_ITS | Encounter Summary ---
Author Organization [facility] Address [address] [place] [address] Care Team Providers Care Biological Lab Technician Name Role Phone Aria Thompson MD Primary Care Provider Reason for Visit * Reason Onset Date Comments Appointment Related 01/16/2018 Encounter Details Date Type Department Care Team (Late st Contact Info) Description 01/16/[address] [facility] Vascular Surgery - [facility] [address] [place], [place] [id number] Everette Boggs MD [address] [facility], [address] [place] [address] Appointment Related Social History Tobacco [...] * Telephone Encounter - Macrina Guzman - 01/17/2018 0847 EDT Called and spoke with Elsa to provide her with her new appointment date/time for her follow up CT scan and office visit with Dr. Boggs. Patient is scheduled on Sunday02/18/18 checking in at Registration at 8:30 AM for a 9:[address] scan. Following the scan Elsa will then come up to level 5 Vascular Surgery to see Dr. Boggs at 9:45 AM. Patient verbalized understanding and was in agreement with new appointment date/time and instructions. * Telephone Encounter - Macrina Guzman - 01/16/2018 1102 EDT Elsa calls stating she is unable to keep her 02/08/18 CTA scan and follow up visit with Dr. Boggs. Patient requesting to reschedule scan and office visit. Informed patient I was happy to rescheduled but that we would be looking at end of January into February to coordinate visits. Advised Elsa that I would contact her once I got her appointments rescheduled. Patient verbalized understanding and was in agreement with this plan. documented in this encounter Plan of Treatment Not on file documented as of this encounter Visit Diagnoses Not on filedocumented in this encounter Care Teams Biological Lab Technician Relationship Specialty Start Date End Date Aria Thompson MD [address] [place] [address] PCP - General 12/03/17 documented as of this encounter
--- OUTSIDE RECORDS SUMMARY | 2024-03-19 02:04 | XMS_ITS | Encounter Summary ---
Author Organization [facility] Address [address] [place] [address] Care Team Providers Care Head Golf Coach Name Role Phone Bartolo Landon MD Primary Care Provider Encounter Details Date Type Department Care Team (Late st Contact Info) Description 05/25/2015 Results Only [facility] [phone] Raeann Thompson MD [place] [address] Social History Tobacco Use Types Packs/Day Years Used Date Smoking Tobacco: Never Assessed Sex and Gender Information Value Date Recorded Sex Assigned at Not on file Gender Identity Not on file Sexual Orientation Not on file documented as of this encounter Plan of Treatment Not on file documented as of this encounter Procedures Procedure Name Priority Date/Time Associated Diagnosis Comments PAP TEST- RESULT ONLY Routine 05/25/2015 0:00 EDT documented in this encounter Results * PAP TEST- RESULT ONLY (05/25/2015 0:00 EDT) Pathology Report: CYTOPATHOLOGY REPORT Reports generated via electronic interface contain original data; however they are lacking the format of the original report. Caution should be taken when reading/interpreti ng unformatted reports. Name: ? SKYLA LONDONO ? Accession #: ? [id number] ? : ? 1960 (Age: 54) ??F ?Collect Date: ? 05/25/2015 ? Location: ? [facility] ? Receive Date: ? 05/26/2015 ? Provider: RAEANN THOMPSON MD Copy to: ? Final Report SPECIMEN ADEQUACY ? Satisfactory for Evaluation - transformation zone component present GENERAL CATEGORIZATION ? Negative for Intraepithelial Lesion or Malignancy INTERPRETATION ? Reactive cellular changes associated with inflammation present (includes repair). Fungal organisms present morphologically consistent with Shaye species. Menstrual/Pregnanc y Status: ??Menopausal: S/P Treatment History: Cryotherapy: Hx Miscellaneous treatment: Endo laparoscopy Specimen/Source: ??Pap Test, Cervix/Endocervix, ThinPrep Imaging System with manual evaluation Document reviewed and electronically signed by: ? FENG LAGUNAS MD ? Report ??Date: 05/31/2015 11:04 HPV with Pap Test ? Date Ordered: ? 05/31/2015 ? Status: ?? Signed Out ?Date Complete: ? 06/03/2015 ? By: ??System Interface ? Date Reported: ? 06/03/2015 ? Interpretation RESULT: Negative for HPV. No E6 or E7 mRNA is detected from HPV types 16,18,31,33,35, 39,45,51,52,56,58, 59,66, and 68 by fence supervisor mediated amplification. Comments Document reviewed and electronically signed by: ? System Interface ? Report date: 06/03/2015 By the signature above, the attending physician certifies that he/she has personally conducted a gross and/or microscopic examination of the described specimens and rendered or confirmed the above diagnosis. End of Report [facility] 05/25/2015 05/26/2015 Raeann Thompson MD PATHOLOGY ORDER JUNE [facility] [address] [place] [address] documented in this encounter Visit Diagnoses Not on filedocumented in this encounter Care Teams Head Golf Coach Relationship Specialty Start Date End Date Bartolo Landon MD [address] [place] [phone] PCP - General 03/12/09 12/02/17 documented as of this encounter
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
--- OUTSIDE RECORDS SUMMARY | 2024-03-19 02:04 | XMS_ITS | Encounter Summary ---
Author Organization [facility] Address [address] [place] [address] Care Team Providers Care Housekeeping/Laundry Supervisor Name Role Phone Aria Thompson MD Primary Care Provider Reason for Visit * Reason Onset Date Comments Other 02/06/2018 Encounter Details Date Type Department Care Team (Late st Contact Info) Description 02/06/2018 Telephone [facility] Neurology - [place] [address] [place], [place] [id number] Marleny Quezada MD [address] [place] [address] Other Social History Tobacco Use [...] Yes 01/28/2018 documented as of this encounter Miscellaneous Notes * Telephone Encounter - Marleny Quezada MD - 02/06/2018 [id number] EDT Dictated so it should be out in a few days. * Telephone Encounter - Amber Dominguez - 02/06/2018 1144 EDT Vascular Surgery at [facility] called looking for your last note on this patient. documented in this encounter Plan of Treatment Not on file documented as of this encounter Visit Diagnoses Not on filedocumented in this encounter Care Teams Housekeeping/Laundry Supervisor Relationship Specialty Start Date End Date Aria Thompson MD [address] [place] [address] PCP - General 12/03/17 documented as of this encounter
--- OUTSIDE RECORDS SUMMARY | 2024-03-19 02:04 | XMS_ITS | Encounter Summary ---
Author Organization [facility] Address [address] [place] [address] Care Team Providers Care Loadmaster Name Role Phone Aria Thompson MD Primary Care Provider Reason for Visit * Reason Comments Follow-up CTA first Encounter Details Date Type Department Care Team (Late st Contact Info) Description 02/18/2018 9:45 EDT Office Visit [facility] Vascular Surgery - [address] [phone] Everette Boggs MD [address] [place] [address], [address] [place] [address] Cyanosis of fingertip (Primary Dx) Discharge Disposition: Auto Discharge [...] as of this encounter Discharge Diagnoses Diagnosis R23.0 Cyanosis-R23.0[ICD-10-CM] S49.81XA Other specified injuries of right shoulder and upper arm, initial encounter-S49.81XA[ICD-10-CM] documented in this encounter Discharge Disposition Disposition Code Departure Means Destination Auto Discharge documented in this encounter Progress Notes * Everette Boggs MD - 02/18/2018 1138 EDT This office note has been dictated. Everette Boggs MD 02/18/2018 11:38 documented in this encounter Consult Notes * Everette Boggs MD - 02/18/2018 0000 EDT [facility]ULAR SURGERY CONSULTATION - 02/18/2018 SUBJECTIVE: I saw Elsa Lujan after her CT scan today, which was done to evaluate for causes of an ischemic finger on the right side. She has no further problems with finger cyanosis. She reports thiswas self-limited and has not recurred. OBJECTIVE: On exam, she has a good radial and ulnar pulse and fingers do not look ischemic on either side. DIAGNOSTIC DATA: I reviewed her CT scan. The great vessels, subclavian, axillary, brachial, radial and ulnar arteries show no sign of occlusion. Importantly, the area of the previous arm trauma showsno sign of occult injury in the vessel. ASSESSMENT AND PLAN: She has residual pain in the shoulder after her injury. I suggested she followup through her primary care, her neurologist or physical therapy to assist with this as it does notseem vascular in nature. Everette Boggs MD 11 39 AM - Everette Boggs MD cn Dictation ID: [id number] documented in this encounter Plan of Treatment Not on file documented as of this encounter Visit Diagnoses Diagnosis Cyanosis of fingertip- Primary Cyanosis documented in this encounter Care Teams Loadmaster Relationship Specialty Start Date End Date Aria Thompson MD [address] [place] [id number] PCP - General 12/03/17 documented as of this encounter
--- OUTSIDE RECORDS SUMMARY | 2024-03-19 02:04 | XMS_ITS | Encounter Summary ---
Author Organization Health system Address [address] [place] [address] Care Team Providers Care Engineering Tech Name Role Phone Bartolo Landon MD Primary Care Provider Aria Thompson MD Primary Care Provider Encounter Details Date Type Department Care Team (Late st Contact Info) Description 06/28/2010 Historical Results Only [facility] Lab - Main [address] [address] Frederick Chinchlila MD [address] [place] [phone] Social History Tobacco Use Types Packs/Day Years Used Date Smoking Tobacco: Never Assessed Sex and Gender Information Value Date Recorded Sex Assigned at Not on file Gender Identity Not on file Sexual Orientation Not on file documented as of this encounter Plan of Treatment Not on file documented as of this encounter Procedures Procedure Name Priority Date/Time Associated Diagnosis Comments PAP TEST Routine 06/28/2010 12:48 EDT documented in this encounter Results * PAP TEST (06/28/2010 12:48 EDT) 06/28/2010 12:4 8 EDT 06/28/2010 16:17 EDT Narrative [facility] - 07/01/2010 12:59 EDT ----- ------- Name: SKYLA LONDONO ? : 56 ?Age/Sex: 58/F ?Unit#: [id number] ? Loc: AGO ? Status: REG POV ?? Reg Date: 06/28/10 ? Pt.Phone Number: ? ----- ------- Specimen: [id number] ?STATUS: SOUT ?Spec Date:06/28/10 ? Physician Copies: ?Frederick Chinchilla J Tissues: ? Cervical/Endo Pap ? CPT: 76219 ?? Units: ??1 ----- ------- ? CYTOLOGY DIAGNOSIS SPECIMEN ADEQUACY: ?Satisfactory for evaluation. Transformation zone component ABSENT. GENERAL CATEGORIZATION: ?Negative for Intraepithelial Lesion or Malignancy DESCRIPTIVE DIAGNOSIS: ?? Shift in noa present suggestive of bacterial vaginosis. RECOMMENDATIONS/COMMENTS: ?None. ----- ------- ORDER QUERIES: LMP: 06/10/10- 06/10/10 ? N Post ? N ??PREVIOUS ATYPICAL: N BCP/HRT? N Rad Rx? N IUD? N ??PAP PLUS HPV? N ??REFLEX TO HR-HPV IF ASCUS ?? REFLEX TO HPV 16/18 IF HPV POS/PAP NEG ?? HPV REGARDLESS?RFLX HPV IF LSIL ?? IF ASCUS DO HPV? N Signed Deejay Warner CT(ASCP) 07/01/10 ? By the signature above, the attending physician certifies that he/she has personally conducted a gross and/or microscopic examination of the described specimens and rendered or confirmed the above diagnosis. Test Performed by [facility], [address] [id number] Cylinder Inspector And Tester: Keisha Garcia MD PHD ----- ------- Frederick Chinchilla MD PATHOLOGY ORDERABL ES [facility] documented in this encounter Visit Diagnoses Not on filedocumented in this encounter Care Teams Engineering Tech Relationship Specialty Start Date End Date Bartolo Landon MD [address] [place] [phone] PCP - General 03/12/09 12/02/17 Aria Thompson MD [address] [place] [address] PCP - General 12/03/17 documented as of this encounter
--- OUTSIDE RECORDS SUMMARY | 2024-03-19 02:04 | XMS_ITS | Encounter Summary ---
Author Organization [facility] Address [facility] [place] [address] Care Team Providers Care Delivery Lead Name Role Phone Pradeep Gallardo APRN Primary Care Provider [phone] Encounter Details Date Type Department Care Team (Latest Contact Info) Description 03/12/2024 Travel Social History Tobacco Use Types Packs/Day [...] 9:30 AM EDT Office [place] [address] Janice Villarreal MD [facility] [place] [address] documented as of this encounter Visit Diagnoses Not on filedocumented in this encounter Care Teams Delivery Lead Relationship Specialty Start Date End Date Pradeep Gallardo APRN [facility] [address] [place] [address] PCP - General 07/19/10 documented as of this encounter
--- OUTSIDE RECORDS SUMMARY | 2024-03-19 02:04 | XMS_ITS | Encounter Summary ---
Author Organization [facility] Address [address] [place] [address] Care Team Providers Care Roll Line Operator Name Role Phone Bartolo Landon MD Primary Care Provider Encounter Details Date Type Department Care Team (Latest Contact Info) Description 05/28/2009 11:09 EDT - 05/28/2009 23:59 EDT Hospital Encounter [facility] [address] [place] [address] Pavan Zurita MD Discharge Disposition: Home or Self Care Social History Tobacco Use Types Packs/Day Years Used Date Smoking Tobacco: Never Assessed Sex and Gender Information Value Date Recorded Sex Assigned at Not on file Gender Identity Not on file Sexual Orientation Not on file documented as of this encounter Discharge Disposition Disposition Code Departure Means Destination Home or Self [facility] documented in this encounter Procedure Notes * Inpatient, Physician - 05/31/2009924 EDTAssociated Order(s): ORDERS - SCANNED * Inpatient, Physician - 05/31/2009924 EDTAssociated Order(s): PATHOLOGY - SCANNED * Inpatient, Physician - 05/31/2009924 EDT documented in this encounter Miscellaneous Notes * Scanned Note-Null - Inpatient, Physician - 05/31/2009924 EDT * Brief Op Note - Inpatient, Physician - 05/31/2009 0925 EDT * Scanned Note-Null - Inpatient, Physician - 05/31/2009 0812 EDT documented in this encounter Plan of Treatment Not on file documented as of this encounter Procedures Procedure Name Priority Date/Time Associated Diagnosis Comments ORDERS - SCANNED 05/31/2009 9:25 EDT PATHOLOGY - SCANNED 05/31/2009 9:25 EDT documented in this encounter Results * ORDERS - SCANNED (05/31/2009 9:25 EDT) 05/31/2009 9:25 EDT Narrative Procedure Note Inpatient, Physician - 05/31/2009 9:25 EDT Physician Inpatient MD ADMISSION ORDERAB LES * PATHOLOGY - SCANNED (05/31/2009 9:25 EDT) 05/31/2009 9:25 EDT Narrative Procedure Note Inpatient, Physician - 05/31/2009 9:25 EDT Physician Inpatient MD LAB INFO SERVICE AND SUPPORT & PHONE RESULT documented in this encounter Visit Diagnoses Not on filedocumented in this encounter Care Teams Roll Line Operator Relationship Specialty Start Date End Date Bartolo Landon MD [address] [place] [address] PCP - General 03/12/09 12/02/17 documented as of this encounter
--- OUTSIDE RECORDS SUMMARY | 2024-03-19 02:04 | XMS_ITS | Encounter Summary ---
Author Organization [facility] Address [address] [place] [address] Care Team Providers Care Baton Teacher Name Role Phone Aria Thompson MD Primary Care Provider Reason for Referral * Consult (Routine/Next Available) - Specialty Report Received Specialty Diagnoses / Procedures Referred By Merari rosario Referred To Contact Neurology Diagnoses Seizure disorder ([facility]-CMS) Everette Boggs MD [address] [facility] [address] [place] [address] Nahum Hernandez MD [address] [place] [address] Referral ID Status Reason Start Date Expiration Date Visits Requested Visits Authorized [id number] Specialty Report Received Second Opinion 12/05/2017 1 1 Question Answer Reason for Request: Patient with seizure history and in control of her seizure disorder requesting for second Neurology opinion from [facility]. Patient being worked up by Vascular Surgery for cyanotic finger after obtaining nerve damage to right arm after a fall. Comments Workman's Comp Case - Case #[id number], Injury Date: 09/27/16 Patients' previous Neurologist: Dr. Jameson Burgos in [place], [place]. Patient will call Dr. Burgos's office to have the office release her Neurology consult notes to [facility]. Reason for Visit * Reason Onset Date Comments Referral Request 12/05/2017 Encounter Details Date Type Department Care Team (Late st Contact Info) Description 12/05/2017 Orders Only [facility] Vascular Surgery - [facility] [address] [place] [address] Everette Boggs MD [address] [facility], [facility], [address] [place] [address] Seizure disorder ([facility]) (Primary Dx) Social History Tobacco Use Types [...] No 12/03/2017 documented as of this encounter Plan of Treatment Scheduled Referrals Name Type Priority Associated Diagnoses Orde r Schedule AMB CONS/FOLLOW UP NEUROLOGY Outpatient Referral Routine Seizure Disorder (CMS-HCC) Ordered: 12/05/2017 documented as of this encounter Visit Diagnoses Diagnosis Seizure disorder ([facility])- Primary Unspecified epilepsy without mention of intractable epilepsy documented in this encounter Care Teams Baton Teacher Relationship Specialty Start Date End Date Aria Thompson MD [address] [place] [address] PCP - General 12/03/17 documented as of this encounter
--- OUTSIDE RECORDS SUMMARY | 2024-03-19 02:04 | XMS_ITS | Encounter Summary ---
Author Organization [facility] Address [address] [place] [address] Care Team Providers Care Digital Music Instructor Name Role Phone Aria Thompson MD Primary Care Provider Encounter Details Date Type Department Care Team (Late st Contact Info) Description 02/18/2018 6:45 EDT - 02/18/2018 23:59 EDT Hospital Encounter [facility] [address] [place] [address] Marleny Quezada MD [address] [place] [address] Everette Boggs MD [address] [facility], [address] [place] [address] Discharge Disposition: Auto Discharge Social History Tobacco [...] Yes 01/28/2018 documented as of this encounter Discharge Diagnoses Diagnosis R23.0 Cyanosis-R23.0[ICD-10-CM] S49.81XA Other specified injuries of right shoulder and upper arm, initial encounter-S49.81XA[ICD-10-CM] documented in this encounter Medications at Time [...] on filedocumented in this encounter Care Teams Digital Music Instructor Relationship Specialty Start Date End Date Aria Thompson MD [address] [place] [address] PCP - General 12/03/17 documented as of this encounter
--- OUTSIDE RECORDS SUMMARY | 2024-03-19 02:04 | XMS_ITS | Encounter Summary ---
Author Organization [facility] Address [facility] [place] [address] Care Team Providers Care Energy Project Engineer Name Role Phone Pradeep Gallardo APRN Primary Care Provider [phone] Encounter Details Date Type Department Care Team (Late st Contact Info) Description 12/27/2023 Telephone [place] [phone] Janice Villarreal MD [facility] [place] [address] Social History Tobacco Use Types Packs/Day Years [...] encounter Miscellaneous Notes * Telephone Encounter - Janice Villarreal MD - 12/27/2023 4:48 PM EDT I returned Elsa's call to review labs. She still has concerns about increasing her Remicade dose back to 10mg/kg. Looking at her LFTs, they have decreased somewhat since her last check. I recommend if we are to keep her at 5mg/kg right now, we should plan to proceed with a liver biopsy as well as MRCP to evaluate for DILI from Remicade. She will reach out with any concerns for new UC flare in the interim and I will plan a repeat trough before her next infusion. Janice Villarreal MD Gastroenterology and Hepatology 12/27/2023 4:49 PM Pager # [phone] documented in this encounter Plan of Treatment Upcoming Encounters Date Type Department Care Team (Late st Contact Info) Description 06/25/2024 9:30 AM EDT Office [place] [address] Janice Villarreal MD [facility] [place] [address] documented as of this encounter Results * Infliximab Level (01/17/2024 9:47 AM EDT) [...] are greater than 5.0 mcg/mL, clinically ?relevant czzehspzyy-rd-julu iximab are unlikely and reflex ?testing will not be performed. ? ---ADDITIONAL INFORMATION------- ?This test was developed and its performance characteristics ?determined by [facility] in a manner consistent with CLIA ?requirements. This test has not been cleared or approved by ?the U.S. Food and Drug Administration. ?Test Performed by: ?[facility] ?[address] [place] [address] ?Banking Analyst: Basil Retana M.D. Ph.D.; CLIA# [id number] [facility] Blood 01/17/2024 9:47 AM EDT 01/17/2024 12:31 PM EDT Narrative Resulting Agency Comment Spec In Lab Janice Villarreal MD CHEMISTRY ORDERABLES Performing Organization Address City/State/[facility] Co de Phone Number [facility] [place] [address] documented in this encounter Visit Diagnoses Diagnosis Ulcerative pancolitis without complication documented in this encounter Care Teams Energy Project Engineer Relationship Specialty Start Date End Date Pradeep Gallardo APRN [address] [address] PCP - General 07/19/10 documented as of this encounter
--- OUTSIDE RECORDS SUMMARY | 2024-03-19 02:04 | XMS_ITS | Encounter Summary ---
Author Organization [facility] Address [address] [place] [address] Care Team Providers Care Film Splicer Name Role Phone Aria Thompson MD Primary Care Provider Reason for Visit * Reason Comments New Patient Visit Referred by Dr. Fior johnson vascular for 2nd opinon seizure disorder/work nerve injury Sep 2016 * Consult (Routine/Next Available) - Specialty Report Received Specialty Diagnoses / Procedures Referred By Merari rosario Referred To Contact Neurology Diagnoses Seizure disorder (HCC-CMS) Everette Boggs MD [address] [facility], [facility] [address] [place] [address] Nahum Hernandez MD [address] [place] [address] Referral ID Status Reason Start Date Expiration Date Visits Requested Visits Authorized [id number] Specialty Report Received Second Opinion 12/05/2017 1 1 Encounter Details Date Type Department Care Team (Late st Contact Info) Description 01/28/2018 9:00 EDT Office Visit [facility] Neurology - [place] [address] [place] [address] Marleny Quezada MD [address] [place] [address] Seizures (HCC-CMS) (Primary Dx); Right arm pain Discharge Disposition: Auto Discharge Social History Tobacco Use Types Packs/Day Years Used Date Smoking Tobacco: Former Cigarettes 0.3 10 Smokeless Tobacco: Never Sex and Gender Information Value Date Recorded Sex Assigned at Not on file Gender Identity Not on file Sexual Orientation Not on file documented as of this encounter Last Filed Vital Signs Vital Sign Reading Time Taken Comments Blood Pressure 160/95 01/28/2018 0840 EDT Pulse 61 01/28/2018 0840 EDT Temperature - - Respiratory Rate 12 01/28/2018 0840 EDT Oxygen Saturation - - Inhaled Oxygen Concentration - - Weight - - Height - - Body Mass Index - - documented in this encounter Functional Status Functional [...] 01/28/2018 documented as of this encounter Discharge Disposition Disposition Code Departure Means Destination Auto Discharge documented in this encounter Progress Notes * Marleny Quezada MD - 01/28/2018 0900 EDT This office note has been dictated. documented in this encounter Consult Notes * Marleny Quezada MD - 01/28/2018 0000 EDT [facility] NEUR[facility] CONS[facility]ATION - 01/28/2018 CHIEF COMPLAINT: Seizures. REFERRING PROVIDER: Everette Boggs MD, for seizures. HISTORY OF PRESENT ILLNESS: The patient is a relatively healthy female, 57 years old, with a history of seizures. She was seen by Dr Boggs in vascular surgery on the 03 of December regarding discoloration of the right 1st finger. She has a followup with him after vascular studies have been ordered. The patient's seizure history dates back to her early 40s in which she had been diagnosed with a seizure disorder. Describes a grand mal seizure and was told that the etiology was not known. Apparently had imaging and an EEG and was told that the left brain did not work well. She had been followed by Dr Burgos and had been seen at [facility] at the time. Currently on Trileptal 300 mg 4 times a day that she reportedly tolerates well. She does endorse rarely having what she refers to as petit mal events, usually 1 every 6 months or so, though it is rather variable and can occur even after a year. She reports feeling funny and thatshe snaps right out of it. She otherwise denies any other partial seizure stigmata. Then, on the 09/27/2016 in a [employer] vehicle, she had been filling it up, bought lunch and went to use the restroom. She slipped on a wet floor and put her right arm out and fell face forward. Apparently she sustained an injury to the face with raccoon eyes and diagnosed with a concussion. She did not sustain any other head injuries. She had been in therapy. Apparently since then, she has had a ch clair in her seizure disorder with more frequent and longer lasting events with the longest lasting up to an hour and a half. This past week had one 2 nights in a row during her sleep of unknown duration. She reports not feeling well before the event and feeling out of it with difficulty speaking. states that he has only seen one in which she was found to be flailing around. I could not get a more accurate description of the event. She reports that Dr Burgos had changed her to generic lamotrigine 100 mg twice daily from the Trileptal from July through October though switched back to Trileptal since it appeared ineffective for her. There are no other seizure risk factors. She has nofamily history. No developmental milestone delays or any other history of meningitis, brain tumors, strokes or others. I do not have any recent evaluations including imaging or EEG studies. She also reports headaches that come and go, new since the incident, and described as severe with variable frequency on the order of one every 2 weeks that is severe. They usually last a couple of hours, she does not feel well, and they typically do respond reasonably well to Aleve. She does not endorse any nausea or vomiting or sensitivity to lights or noises. She also reports difficulty with arm pain. It is constant and describes it as a pins and needles-like sensation of essentially most of the right arm since the incident in September of last year. She reports 2 episodes in October where she noticed a change in her right hand color. It appeared blue and black and lasted for about 5 days. Went to the emergency room at [facility], then referred to Dr Boggs. His note refers to ischemia of the right 1st finger, though the patient is adamant that the color changes and the swelling involved the entire right hand. He did a duplex in his lab today, which showed normal flow throughout the right upper extremity. The Aleve does seem to help. The symptoms havenot changed. There are no motor symptoms. She is not a weak, though there is discomfort in the arm.It is essentially the entire arm from the shoulder distally. The other extremity has been normal. No lower extremity symptoms, either. I do not think that she has had any imaging of her spine or elect rodiagnostic testing, though she thinks she may have had imaging of her spine. We will need to clarify this. PAST MEDICAL AND SURGICAL HISTORY: Epilepsy, headaches, right arm pain, section. MEDICATIONS: Carbamazepine brand 300 mg 4 times daily. Vitamin D. ALLERGIES: SULFA. FAMILY HISTORY: Dad, bladder cancer. Mom , COPD. One son, diabetes. SOCIAL HISTORY: Former smoker, rarely drinks alcohol. Currently not driving. REVIEW OF SYSTEMS: A 14-point review of systems identified with the patient. Aside from the above, all other systems are reviewed and negative. PHYSICAL EXAM: BP 160/95, pulse 61, respiratory rate 11. Cephalic exam normal. Mucous membranes moist. Sclerae are anicteric. Oropharynx clear. Hemithoraces clear. Precordium: Regular S1, S2, no rubs, gallops or murmurs. Abdomen benign, normal bowel sounds. Extremities warm, symmetric peripheral pulses. No skin color changes are identified in the upper extremities. Pulses appear intact in both upper extremities. Range of motion in the upper extremities including the right appears normal. Neurologic: Awake, alert and oriented x3. Pupils equally round and reactive, no afferent pupillary defect. Eye movements conjugate. Hodgson full, no nystagmus. Face symmetric, normal sensation. Tonguemidline, symmetric palatal elevation. Head and neck rotation intact. Shoulder shrug intact. Bulk, tone, strength intact, no drift, no adventitious motor movements. Stretch reflexes are symmetric throughout. No pathological reflexes. Lbumfy-ec-suxo, rapid alternating movements are intact. Romberg sign absent. Gait normal. ASSESSMENT AND PLAN: Elsa is a 57-year-old female with a history of epilepsy, previously well controlled but of undefined etiology on single-agent brand Trileptal with a subjective description of worsening of her spells ever since a work-related injury in September of last year. Plan will be to maintain her on her current Trileptal, obtain oxcarbazepine level as well as vitamin D. We did discuss osteopenia on chronic Trileptal therapy. No generics. We will pursue an MRI and ambulatory EEG to clarify the events. She cannot drive until then. With regards to the arm symptoms, reference is made of the right thumb in Dr Boggs' note, but this appears to be a subjective description of color changes of the entire right hand in the setting ofa previous trauma to the right arm in September of last year with no objective findings on exam today and duplex studies showing no arterial insufficiency. This raises the possibility of CRPS. Plan will be to do an EMG. She prefers not taking any medications. We discussed the use of cannabinoid as an alternative. Not quite clear whether or not she has had a C-spine MRI, though we could pursue if not done, depending on the outcome of her EMG studies. Insofar as her headaches are concerned, we could contemplate a change to her medications, but I think nutraceuticals would be most appropriate. I will follow up with her after completion of the MRI, EMG and EEG studies. Marleny Quezada MD 03 31 PM - Marleny Quezada MD pn Dictation ID: [id number] cc: Everette Boggs MD, [facility] - Vascular Surgery [address] [place] [address] Aria Thompson MD, [address] [place] [phone] documented in this encounter Plan of Treatment Not on file documented as of this encounter Visit Diagnoses Diagnosis Seizures ([facility])- Primary Other convulsions Right arm pain Pain in limb documented in this encounter Discontinued Medications Medication Sig Discontinue Reason Start Date End Da te lamoTRIgine (LAMICTAL) 25 mg tablet Take 25 mg by mouth 2 times daily. Patient Stopped Taking 01/28/2018 documented as of this encounter Historical Medications * This list may reflect changes made after this encounter. Medication Sig Dispensed Refills Start Date End Date cholecalciferol, vitamin D3, (VITAMIN D3 ORAL) Take 2,000 Tabs by mouth daily. lamoTRIgine (LAMICTAL) 100 mg tablet Take 100 mg by mouth 2 times daily. 03/27/2019 added in this encounter Care Teams Film Splicer Relationship Specialty Start Date End Date Aria Thompson MD [address] [place] [address] PCP - General 12/03/17 documented as of this encounter
--- OUTSIDE RECORDS SUMMARY | 2024-03-19 02:04 | XMS_ITS | Encounter Summary ---
Author Organization [facility] Address [address] [place] [address] Care Team Providers Care Coal Hiker Name Role Phone Unavailable Primary Care Provider Unavailabl e Encounter Details Date Type Department Care Team (Latest Contact Info) Description 07/14/2003 9:31 EST - 07/14/2003 11:59 EST Hospital Encounter [facility] - [address] [address] Frederick Chinchilla MD [address] [place] [address] Discharge Disposition: Auto Discharge Social History Tobacco [...] Procedure Name Priority Date/Time Associated Diagnosis Comments RAD US BREAST BIOPSY Routine 07/14/2003 11:19 EST CYTOPATHOLOGY Routine 07/14/2003 0:00 EST documented in this encounter Results * RAD US BREAST BIOPSY (07/14/2003 11:19 EST) Anatomical Region Laterality Modality Other 07/14/2003 11:1 9 EST Impressions 04/26/2009 0:57 EDT IMPRESSION: Successful ultrasound-guided FNA of probable complex cysts at 12 to 1 o'clock, left breast, cytology pending. Radiology will call the patient with the biopsy results in about three to five work days. An addendum to this report will be dictated at that time and will contain recommendations for follow-up. /[facility] Addendum # 1 by Amie Goetz Md on 07-17-2003 08:31 Cytopathology and imaging findings have been reviewed by Drs. Goetz and José Manuel. Cytopathology from the left breast 1 o'clock cyst, 5 cm out from the nipple, demonstrates no malignant cells. Microscopic exam shows numerous foam cells on background of proteinaceous debris. This is compatible with a benign cystic process. We believe this benign diagnosis to be concordant with the imaging findings. As this cyst nearly completely decompressed as well as the simple cyst, which also completely decompressed, have resolved, no further imaging followup is needed at this time. Annual screening mammography is recommended. A member of the Radiology Department will call the patient with results and recommendations. /sb Narrative 04/26/2009 0:57 EDT U/S ??BX LEFT BREAST PALP NODULE-SEE COORD SHEET--I HR ONLY [facility] FILMS SENT FOR OUR REVIEW BY DR CHINCHILLA ULTRASOUND-GUIDED FNA OF PROBABLE COMPLEX CYST, LEFT BREAST, AT 12 TO 1 O'CLOCK The patient had an evaluation at [facility], at which time a likely complex cyst was identified at 12 to 1 o'clock. This is adjacent to an obvious simple cyst. This cystic complex was and is still clinically palpable, although less promient as per the patient. On today's ultrasound examination, the dominant cyst and more anteriorly-located complex cyst are both again seen. The complex cyst is slightly smaller in size than on the [facility] examination, which was done at the end of May. The dominant simple cyst is unchanged. EXAM: After obtaining informed written consent, the left breast was prepped with Betadine and the area anesthetized with buffered lidocaine. A 22-gauge and then an 18-gauge spinal needle was successfully introduced into the more anteriorly-located complex cyst. There was near-complete decompression of the cyst following the second pass and a small amount of thick, pasty material was aspirated and sent to cytology. Following this, because of the patient's tenderness, I elected to aspirate the larger simple cyst and this was done with a 22-gauge needle without difficulty. The larger cyst was completely decompressed and about 8 cc of light yellow fluid was aspirated and discarded. Procedure Note Benjamin Wall MD / Amie Goetz MD - 04/26/2009 U/S BX LEFT BREAST PALP NODULE-SEE COORD SHEET--I HR ONLY [facility] FILMS SENT FOR OUR REVIEW BY DR CHINCHILLA ULTRASOUND-GUIDED FNA OF PROBABLE COMPLEX CYST, LEFT BREAST, AT 12 TO 1 O'CLOCK The patient had an evaluation at [facility], at which time a likely complex cyst was identified at 12 to 1 o'clock. This is adjacent to an obvious simple cyst. This cystic complex was and is still clinically palpable, although less promient as per the patient. On today's ultrasound examination, the dominant cyst and more anteriorly-located complex cyst are both again seen. The complex cyst is slightly smaller in size than on the [facility] examination, which was done at the end of May. The dominant simple cyst is unchanged. EXAM: After obtaining informed written consent, the left breast was prepped with Betadine and the area anesthetized with buffered lidocaine. A 22-gauge and then an 18-gauge spinal needle was successfully introduced into the more anteriorly-located complex cyst. There was near-complete decompression of the cyst following the second pass and a small amount of thick, pasty material was aspirated and sent to cytology. Following this, because of the patient's tenderness, I elected to aspirate the larger simple cyst and this was done with a 22-gauge needle without difficulty. The larger cyst was completely decompressed and about 8 cc of light yellow fluid was aspirated and discarded. IMPRESSION IMPRESSION: Successful ultrasound-guided FNA of probable complex cysts at 12 to 1 o'clock, left breast, cytology pending. Radiology will call the patient with the biopsy results in about three to five work days. An addendum to this report will be dictated at that time and will contain recommendations for follow-up. /[facility] Addendum # 1 by Amie Goetz Md on 07-17-2003 08:31 Cytopathology and imaging findings have been reviewed by Drs. Goetz and José Manuel. Cytopathology from the left breast 1 o'clock cyst, 5 cm out from the nipple, demonstrates no malignant cells. Microscopic exam shows numerous foam cells on background of proteinaceous debris. This is compatible with a benign cystic process. We believe this benign diagnosis to be concordant with the imaging findings. As this cyst nearly completely decompressed as well as the simple cyst, which also completely decompressed, have resolved, no further imaging followup is needed at this time. Annual screening mammography is recommended. A member of the Radiology Department will call the patient with results and recommendations. /laine Frederick Chinchilla MD [facility] [place] ORDERABLES * CYTOPATHOLOGY (07/14/2003 0:00 EST) Pathology Report: CYTOPATHOLOGY REPORT Reports generated via electronic interface contain original data; however they are lacking the format of the original report. Caution should be taken when reading/interpreti ng unformatted reports. Name: ? SKYLA LONDONO ? Accession #: ? [id number] : ? 1960 (Age: 42) ??F ?Collect Date: ? 07/14/2003 Location: ? [facility] ? Receive Date: ? 07/14/2003 Provider: ? BENJAMIN WALL MD Copy to: ?NNAMDI CHINCHILLA MD ? Fine Needle Aspiration/Core Biopsy (Assisted) ? Radiology Department, [place] [address] ([facility]) ? CYTOLOGIC DIAGNOSIS: ? Breast, left, cyst aspirate, cytologic evaluation: - No malignant cells identified. ??See comment. ? COMMENT: ? Microscopic examination shows numerous foam cells in a background of proteinaceous debris. ??This is compatible with a benign cystic process. ??(Dr. Bush)/[facility] Document reviewed and electronically signed by: ? JOHANN BUSH MD [facility] Report Date: ??07/15/2003 12:45 By the signature above, the attending physician certifies that he/she has personally conducted a gross and/or microscopic examination of the described specimens and rendered or confirmed the above diagnosis. Specimen Type: ? Left Breast, Fine Needle Aspiration Clinical History: ? Left breast 1:00 o'clock, 5cm out, probable complex cyst. ??R/o Ca (doubt). Clinical diagnosis; Complex cyst. ? Gross Description: ? 2 fixed prepared slides, 2 air dried prepared slides, and 1 tube of Cytolyt were received and processed. ? End of Report MONIKA CAMPOS 07/14/2003 07/14/2003 12: 32 EST Benjamin Wall MD PATHOLOGY ORDERLiz GARCIA MONIKA CAMPOS [address] [place] [address] documented in this encounter Visit Diagnoses Not on filedocumented in this encounter
--- OUTSIDE RECORDS SUMMARY | 2024-03-19 02:04 | XMS_ITS | Encounter Summary ---
Author Organization [facility] Address [address] [place] [address] Care Team Providers Care Blocking Machine Operator Name Role Phone Bartolo Landon MD Primary Care Provider Aria Thompson MD Primary Care Provider Encounter Details Date Type Department Care Team (Late st Contact Info) Description 01/01/2017 Historical Results Only [facility] Radiology Results [address] [place] [address] [place] [id number] [place] [address] Social History Tobacco Use Types Packs/Day Years Used Date Smoking Tobacco: Never Assessed Sex and Gender Information Value Date Recorded Sex Assigned at Not on file Gender Identity Not on file Sexual Orientation Not on file documented as of this encounter Plan of Treatment Not on file documented as of this encounter Procedures Procedure Name Priority Date/Time Associated Diagnosis Comments US GUIDED NECK FNA 01/01/2017 13 :45 EDT CYTOLOGY (NON-GYNECOLOGIC INCLUDING FLUIDS AND FINE NEEDLE ASPIRATION)- ORDER ONLY Routine 01/01/2017 documented in this encounter Results * US GUIDED BIOPSY FNA THYROID (01/01/2017 13:45 EDT) Anatomical Region Laterality Modality Neck Other 01/01/2017 13:4 5 EDT Narrative 01/01/2017 13:48 EDT ? EXAM: ULTRASOUND/FINE NEEDLE ASPIRATION O EX. D/ (1343) ? CLINICAL INFORMATION: ? E04.2 NONTOXIC MULTINODULAR GOITER ? Procedure: Ultrasound-guided thyroid biopsy. ? Technique: Ultrasound imaging was provided to Dr. Belen Mendosa. ? REPORT SIGNED IN OTHER VENDOR SYSTEM 01/01/2017 ?Reported By: Idris Garza MD ? CC: ? Transcribed Date/Time: 01/01/2017 (5028) ? Adjunct Professor Of Law: ? Printed Date/Time: 02/10/2019 (5238) ? PAGE 1 ? Signed Report ? Procedure Note Idris Garza MD - 07/02/2019 EXAM: ULTRASOUND/FINE NEEDLE ASPIRATION O EX. D/ (1343) CLINICAL INFORMATION: E04.2 NONTOXIC MULTINODULAR GOITER Procedure: Ultrasound-guided thyroid biopsy. Technique: Ultrasound imaging was provided to Dr. Belen Mendosa. REPORT SIGNED IN OTHER VENDOR SYSTEM 01/01/2017 Reported By: Idris Garza MD CC: Transcribed Date/Time: 01/01/2017 (9377) Adjunct Professor Of Law: Printed Date/Time: 02/10/2019 (1693) PAGE 1 Signed Report Belen Mendosa MD IMG US ORDERABLES * CYTOLOGY (NON-GYNECOLOGIC INCLUDING FLUIDS AND FINE NEEDLE ASPIRATION)- ORDER ONLY (01/01/2017) 01/01/2017 01/01/2017 14: 29 EDT Narrative [facility] - 01/02/2017 15:37 EDT ----- ------- Name: SKYLA LONDONO ? : [birth year] ?Age/Sex: 58/F ?Unit#: [id number] ? Loc: DI ?Status: REG CLI ?? Reg Date: 01/01/17 ? Pt.Phone Number: ? ----- ------- Specimen: [id number] ? STATUS: SOUT ?Spec Date:01/01/17 ? Physician Copies: ?Belen Mendosa MD ?? Tissues: A ?? THYROID FNA (LEFT) ? Trevor Mensah MD ?? CPT: 03035 ?? Units: ??1 ? [id number] ? 1 ----- ------- ?? NON [address] CYTOLOGY DIAGNOSIS THYROID, LEFT, ULTRASOUND GUIDED FINE NEEDLE ASPIRATION: -Features consistent with benign follicular nodule, see comment COMMENT: Benign appearing follicular cells are arranged in small groups and in follicular patterns of varying sizes. Many macrophages and colloid are in the background. There is no atypia. ----- ------- ? SPECIMEN DESCRIPTION ? 6 fixed prepared slides, 6 air dried prepared slides, and 1 ?? tube of Cytolyt were received and processed by selective ?? enhancement technique. Signed ____(signature on file)____ Katie Hoffman M.D. 01/02/17 ? By the signature above, the attending physician certifies that he/she has personally conducted a gross and/or microscopic examination of the described specimens and rendered or confirmed the above diagnosis. Test Performed by [facility], [address] [place] [id number] Job Coach: Keisha Garcia MD PHD ----- ------- Belen Mendosa MD PATHOLOGY ORDERABLES [facility] documented in this encounter Visit Diagnoses Not on filedocumented in this encounter Care Teams Blocking Machine Operator Relationship Specialty Start Date End Date Bartolo Landon MD [address] [place] [phone] PCP - General 03/12/09 12/02/17 Aria Thompson MD [address] [place] [address] PCP - General 12/03/17 documented as of this encounter
--- OUTSIDE RECORDS SUMMARY | 2024-03-19 02:04 | XMS_ITS | Encounter Summary ---
Author Organization [facility] [place] [address] Care Team Providers Care Rod Filler Name Role Phone Paulina Pradeep PATRIC Primary Care Provider [phone] Encounter Details Date Type Department Care Team (Late st Contact Info) Description 01/23/2024 Telephone [place] [phone] Abby Baer RN Social History Tobacco Use Types Packs/Day Years [...] encounter Miscellaneous Notes * Telephone Encounter - Devon Bertrand RN - 01/24/2024 1:29 PM EDT Images from the original note were not included. Janice Villarreal MD Harder, Eridana G, RN Caller: Unspecified (Yesterday, 1:31 PM) It will not affect her infusions- I had sent her a letter ~ Sent [facility] message with MRI Results letter to follow up. * Telephone Encounter - Abby Baer RN - 01/23/2024 1:31 PM EDT Patient calls the office leaving a message on the RN voicemail stating that she had her MRI done and would like to discuss results, her colitis and Infusion treatments with Dr. Villarreal. documented in this encounter Plan of Treatment Upcoming Encounters Date Type Department Care Team (Late st Contact Info) Description 06/25/2024 9:30 AM EDT Office Visit [place] [address] Janice Villarreal MD [facility] [place] [address] documented as of this encounter Visit Diagnoses Not on filedocumented in this encounter Care Teams Rod Filler Relationship Specialty Start Date End Date Pradeep Gallardo APRN [address] [address] PCP - General 07/19/10 documented as of this encounter
--- OUTSIDE RECORDS SUMMARY | 2024-03-19 02:05 | XMS_ITS | Encounter Summary ---
Author Organization [facility] [place] [address] Care Team Providers Care Egg Tester Name Role Phone Paulina Pradeep PATRIC Primary Care Provider [phone] Encounter Details Date Type Department Care Team (Late st Contact Info) Description 06/13/2023 11:30 AM EDT Office [place] [address] Janice Villarreal MD [facility] [place] [address] Ulcerative pancolitis with complication (Primary Dx); Urinary frequency Social History Tobacco Use Types Packs/Day Years [...] Sign Reading Time Taken Comments Blood Pressure 153/87 06/13/2023 11:12 AM EDT Pulse 62 06/13/2023 11:12 AM EDT Temperature - - Respiratory Rate - - Oxygen Saturation - - Inhaled Oxygen Concentration - - Weight 67 kg (147 lb 11.2 oz) 06/13/2023 11:12 A M EDT Height 160 cm (5' 3) 06/13/2023 11:12 AM EDT Body Mass Index 26.16 06/13/2023 11:12 AM EDT documented in this encounter Progress Notes * Janice Villarreal MD - 06/13/2023 11:30 AM EDT Images from the original note were not included. [facility] Division of Gastroenterology and Hepatology History of Present Illness: Elsa Lujan 62F w/ PMH of extensive colitis following up in GI clinic. Interval Events: -growing vegetables in her garden- rainfall led to poor yield this year. Growing corn, potatoes, cucumbers -Elsa's energy level varies; most days very upbeat but some days very tired. She is having intermittent BM, more constipated now. Has hard small nabeel, with associated with bloating. Uncomfortable at times and is worried this is related to Remicade. No blood or mucous in stool. No diarrhea butwhen she drinks wine notices looser stools. Drinks two cups coffee a day. -2-3 times a week has to wake up every three hours with urinary urgency. No dysuria. No hematuria. Feels like this started with the infusion. -We discussed the request relayed to me re: paperwork for [employer] disability application. Still waitingon infliximab trough and disease staging colonoscopy and will wait for these to return to help understand if her disease is in remission before determining whether she has active disease. -04/2023 CRP 0.38 mg/dL (3.8 in our system) -stopped taking iron supplement; taking Vitamin D and multivitamin -focused on a health diet, doing yoga twice a week. Regained 10 lbs of lost weight from last year. -trough will be drawn with Jun 2023 infusion - continuing outpatient Remicade 10mg/kg q8w - avoiding opiates and NSAIDs GI History: Patient transferred care from [place] (history below). Well-controlled ulcerative colitis until April [...] CRP 4.8 -Infliximab trough after load 10 Review of Systems: Constitutional: No weight loss [...] Capsule Take 800 Units by mouth daily. multivitamin (THERAGRAN) Tablet Take 1 tablet by mouth daily. inFLIXimab (Remicade) 100 mg Recon Soln Inject into the vein. OXcarbazepine (Trileptal) 300 mg Tablet Take 1,050 mg by mouth daily. ferrous sulfate EC 325 mg (65 mg iron) Tablet, Delayed Release (E.C.) Take 1 tablet by mouth every other day. (Patient not taking: Reported on 06/13/2023) 30 tablet 0 No current facility-administered medications for this visit. Allergies Allergen Reactions Entyvio [Vedolizumab] Rash Sulfa (Sulfonamide Antibiotics) Hives Physical Examination: BP 153/87 (BP Location (NBP): Right arm, Patient Position: Sitting, BP Cuff Sizes: Adult (25-34 cm)) Pulse 62 Ht 160 cm (5' 3) Wt 67 kg (147 lb 11.2 oz) BMI 26.16 kg/m?? General: Pleasant, cooperative, no acute distress [...] Docs Lab Results Component Value Date WBC 4.1 01/04/2023 HGB 10.3 (L) 01/04/2023 HCT 31.0 (L) 01/04/2023 MCV 78.3 (L) 01/04/2023 PLATELET 389 (H) 01/04/2023 Chemistry Component Value Date/Time NA 130 (L) 01/04/2023 1145 K 4.3 01/04/2023 1145 CL 96 (L) 01/04/2023 1145 CO2 27 01/04/2023 1145 BUN 13 01/04/2023 1145 CREATININE 0.61 (L) 01/04/2023 1145 Component Value Date/Time CALCIUM 9.0 01/04/2023 1145 ALKPHOS 47 08/14/2022 0512 AST 12 08/14/2022 0512 ALT 11 08/14/2022 0512 BILITOT <0.2 (L) 08/14/2022 0512 Pertinent Endoscopic Procedures/Reports: Reviewed Pertinent Recent Imagin08/09/22 CT A/P IMPRESSION Descending and rectosigmoid colitis. No abscess nor perforation. ASSESSMENT & PLAN: Elsa Lujan 62F w/ PMH of panulcerative colitis c/b hospitalization 07/2022 present to GI clinic to establish care. Clinical symptoms appear to be in remission with low-normal CRP; awaiting colonoscopy due now for disease staging. Main symptoms today involve intermittent constipation and urinary symptoms which shefeels are both due to Remicade. Apart from risk of UTI, I am unfamiliar with side effects with an ti-TNF, but will check UA today. I recommended she discuss this symptom with her PCP to consider Urology referral if UA is normal. In regards to her constipation, counseled that now she is likely in clinical remission, her gut may be behaving differently from what she has been used to over many years, and we should focus on treating her constipation with a bowel regimen and fiber. Will check trough to ensure it is in therapeutic range but I have low suspicion it is contributing. Reviewed health care maintenance issues today, see below for plan. Recommendations: - s/p Remicade 10mg/kg loading x2 (08/11/22, 08/25/22) - continue outpatient Remicade 10mg/kg q8w - trough ordered for next infusion (last trough sent in error, not able to be read) - disease staging colonoscopy due now, needs to be scheduled - Vitamin D supplement; check level - CRP - UA - HBV immune; Quant gold negative - psyllium daily, miralax daily prn - avoid opiates and NSAIDs - Dermatology referral for annual skin exam placed, still not scheduled. Advised patient to call toschedule. - DEXA due, not yet done by PCP so will order today - Recommend PCP f/up for urinary symptoms - Due for flu shot, Shingrix. Defers COVID booster IBD Health Maintenance (updated periodically) (1) Colonoscopy [...] -Varicella exposure previously or vaccine: Varicella IgG + -MMR vaccine history: UTD -Zoster: UTD (2018) Adults with IBD over the age of 50 should consider vaccination against herpes zoster, including certain subgroups of immunosuppressed patients. -Hep A/B: UTD -Meningococcal vaccine (if < 23 yo): N/A Current Immunizations Name Date Pfizer Covid-19 Bivalent 12Yrs+ (Vora Cap 30mcg) 09/05/2022 (4) Tuberculosis risk assessment: -Quantiferon: neg -Additional risk factors: no (5) Depression screen: Down, depressed, hopeless? Little interest in doing things? (6) Skin Health: -Personal hx of skin cancers: none -Prior use of AZA, MTX or anti-TNF: On Remicade -Dermatology: referral placed for 2022 (7) Bone Health Risk assessment -Age (M>50 or post-menopausal) -Gender: -Prednisone use: -Prior fracture: -Vitamin D: pending -Hypogonadism: -Bone mineral density screening exam (DEXA): recommend with PCP Recommend at diagnosis and consider it every 2-3 years thereafter (8) Last pap smear if female: aged out of screening Women with IBD on immunosuppressive therapy should undergo annual cervical cancer screening. (9) Radiation exposure (CTs): 45 minutes spent in chart review, [id number] time and coordination of care with the patient today. Follow up 6 months Janice Villarreal MD Gastroenterology and Hepatology 06/13/2023 11:38 AM Pager # [phone] documented in this encounter Plan of Treatment Upcoming Encounters Date Type Department Care Team (Late st Contact Info) Description 06/25/2024 9:30 AM EDT Office [place] [address] Janice Villarreal MD [facility] [place] [address] documented as of this encounter Results * Vitamin D, 25-Hydroxy (06/13/2023 12:11 PM EDT) 25-OH Vit D Total 72 21 - 100 ng/mL [facility] 25-OH Vit D Interp Sufficient [facility] Blood 06/13/2023 12:1 1 PM EDT 06/13/2023 12:19 PM EDT Narrative Resulting Agency Comment Spec In Lab Janice Villarreal MD CHEMISTRY ORDERABLES [facility] [place] [place] [address] * CRP, acute inflammation (06/13/2023 12:11 PM EDT) CRP 3.4 <=4.9 mg/L [facility] Blood 06/13/2023 12:1 1 PM EDT 06/13/2023 12:19 PM EDT Narrative Resulting Agency Comment Spec In Lab Janice Villarreal MD CHEMISTRY ORDERABLES [facility] [place] [place] [address] documented in this encounter Visit Diagnoses Diagnosis Ulcerative pancolitis with complication- Primary Urinary frequency documented in this encounter Care Teams Egg Tester Relationship Specialty Start Date End Date Pradeep Gallardo APRN [facility] [address] [place] [address] PCP - General 07/19/10 documented as of this encounter
--- OUTSIDE RECORDS SUMMARY | 2024-03-19 02:05 | XMS_ITS | Encounter Summary ---
Author Organization [facility] [place] [address] Care Team Providers Care Supervisor Felting Name Role Phone Pradeep Gallardo PATRIC Primary Care Provider [phone] Reason for Visit * Reason Onset Date Comments Medication Refill 10/16/2022 Encounter Details Date Type Department Care Team (Late st Contact Info) Description 10/16/2022 Refill [place] [phone] Janice Villarreal MD [facility] [place] [address] Ulcerative pancolitis with complication Social History Tobacco Use Types Packs/Day [...] 9:30 AM EDT Office [place] [phone] Janice Villarreal MD [facility] [place] [address] documented as of this encounter Visit Diagnoses Diagnosis Ulcerative pancolitis with complication documented in this encounter Care Teams Supervisor Felting Relationship Specialty Start Date End Date Pradeep Gallardo APRN [address] [address] PCP - General 07/19/10 documented as of this encounter
--- OUTSIDE RECORDS SUMMARY | 2024-03-19 02:05 | XMS_ITS | Encounter Summary ---
[facility] [place] [address] Care Team Providers Care Online Merchant Name Role Phone Pradeep Gallardo PATRIC Primary Care Provider [phone] Encounter Details Date Type Department Care Team (Late Contact Info) Description 04/03/2023 Telephone [place] [phone] Jenise Mooney Social History Tobacco Use Types Packs/Day Years [...] encounter Miscellaneous Notes * Telephone Encounter - Jenise Mooney - 04/03/2023 2:47 PM EDT Called and lvm for patient to schedule a Fall/Winter [address] Villarreal. (Recall in mani) documented in this encounter Plan of Treatment Upcoming Encounters Date Type Department Care Team (Late st Contact Info) Description 06/25/2024 9:30 AM EDT Office [place] [phone] Janice Villarreal MD [facility] [place] [address] documented as of this encounter Visit Diagnoses Not on filedocumented in this encounter Care Teams Online Merchant Relationship Specialty Start Date End Date Pradeep Gallardo APRN [address] [address] PCP - General 07/19/10 documented as of this encounter
--- OUTSIDE RECORDS SUMMARY | 2024-03-19 02:05 | XMS_ITS | Encounter Summary ---
Author Organization [facility] Address [facility] [place] [address] Care Team Providers Care Mobile Manager Name Role Phone Pradeep Gallardo APRN Primary Care Provider [phone] Encounter Details Date Type Department Care Team (Latest Contact Info) Description 08/31/2022 Travel Social History Tobacco Use Types Packs/Day [...] 9:30 AM EDT Office Visit [place] [address] Janice Villarreal MD [facility] [place] [address] documented as of this encounter Visit Diagnoses Not on filedocumented in this encounter Care Teams Mobile Manager Relationship Specialty Start Date End Date Pradeep Gallardo APRN [facility] [address] [place] [address] PCP - General 07/19/10 documented as of this encounter
--- OUTSIDE RECORDS SUMMARY | 2024-03-19 02:05 | XMS_ITS | Encounter Summary ---
Author Organization [facility] [place] [address] Care Team Providers Care Corporate Vp Advertising & Online Name Role Phone PaulinaPradeep PATRIC Primary Care Provider [phone] Reason for Visit * Reason Onset Date Comments Teeth Problems 12/28/2022 Encounter Details Date Type Department Care Team (Late st Contact Info) Description 12/28/2022 Telephone [place] [phone] Ivelisse Ballesteros RN Teeth Problems Social History Tobacco Use Types Packs/Day Years [...] encounter Miscellaneous Notes * Telephone Encounter - Ivelisse Ballesteros RN - 12/28/2022 9:09 AM EDT 12/28/22: Dr. Alcala calling to request medical clearance for extraction of one maxillary tooth in this pt with [facility] on Remicade. 01/03/[address] Villarreal, I would be fine with the extraction as it's minimally invasive and larger procedureshave shown to be safe on Remicade. documented in this encounter Plan of Treatment Upcoming Encounters Date Type Department Care Team (Late st Contact Info) Description 06/25/2024 9:30 AM EDT Office Visit Gastroenterology at [facility] [place] [address] Janice Villarreal MD [facility] [place] [address] documented as of this encounter Visit Diagnoses Not on filedocumented in this encounter Care Teams Corporate Vp Advertising & Online Relationship Specialty Start Date End Date Pradeep Gallardo APRN [address] [address] PCP - General 07/19/10 documented as of this encounter
--- OUTSIDE RECORDS SUMMARY | 2024-03-19 02:05 | XMS_ITS | Encounter Summary ---
Author Organization [facility] [place] [address] Care Team Providers Care Food And Beverage Outlets Manager Name Role Phone Pradeep Gallardo APRN Primary Care Provider [phone] Reason for Referral * Consultation (Routine) - Closed Specialty Diagnoses / Procedures Referred By Contac t Referred To Contact Dermatology Diagnoses Ulcerative pancolitis with other complication Janice Villarreal MD [facility] [place] [address] [facility] Dermatology [address] [place] [address] Referral ID Status Reason Start Date Expiration Date V isits Requested Visits Authorized [id number] Closed Consult, Test & Treat 08/31/2022 08/31/2023 1 1 Reason for Visit * Consultation (Urgent) - Closed Specialty Diagnoses / Procedures Referred By Contac t Referred To Contact Gastroenterology Diagnoses Ulcerative colitis without complications, unspecified location w/in 2-4 WEEKS -Ulcerative colitis Alina Mackenzie APRN [address] [place] [address] [facility] [address] [place] [address] Referral ID Status Reason Start Date Expiration Date V isits Requested Visits Authorized [id number] Closed Consult, Test & Treat PCP Updated and/or Approved 08/01/2022 08/01/2023 6 6 Encounter Details Date Type Department Care Team (Late st Contact Info) Description 08/31/2022 11:30 AM EST Office Visit [place] [address] Janice Villarreal MD [facility] [place] [address] Ulcerative pancolitis with other complication Social History Tobacco Use Types Packs/Day [...] Sign Reading Time Taken Comments Blood Pressure 127/69 08/31/2022 11:01 AM EST Pulse 84 08/31/2022 11:01 AM EST Temperature - - Respiratory Rate - - Oxygen Saturation - - Inhaled Oxygen Concentration - - Weight 67.1 kg (147 lb 14.4 oz) 023 11:01 AM EST Height 158.8 cm (5' 2.5) 08/31/2022 11 :01 AM EST Body Mass Index 26.62 08/31/2022 11:01 AM EST documented in this encounter Progress Notes * Janice Villarreal - 08/31/2022 11:30 AM EST Images from the original note were not included. [facility] Division of Gastroenterology and Hepatology Outpatient Consultation Reason for Visit: UC Referred by Alina Mackenzie History of Present Illness: Elsa Lujan??61F w/ PMH of??panulcerative colitis??c/b hospitalization 07/2022 present to GI clinic to establish care. Patient is transferring care from [place], where she has received her care (history below). [place] that she had relatively well-controlled ulcerative colitis until April 2022. In April she developed worsening bloody diarrhea with nocturnal stooling and abdominal pain. She states she has lost 23 pounds since May. Course c/b recent hospitalization 07/2022 for UC flare after failing Entyvio due to adverse reaction (rash) and subsequently failing long-term oral prednisone as outpatient (20-30mg daily). While admitted, she was started on IVCS with notable improvement, and had negative infectious w/up and recent flex sig (neg CMV IHC) so was started on rescue-dose Remicade 10mg/kg x1. She improved to having more solid, less frequent stools (3-4 a day) without blood, and wasdischarged on prednisone 40mg daily and is following up today. Second load Remicade last Sunday, next dose due 09/19. She is tolerating her infusions well, no rash or SOB. Takes Claritin with infusions. No new joint pains. No new vision changes/oral ulcers. Regular BM now, normal caliber, no blood or mucous. No nocturnal symptoms. 2 BM daily. No abdominalpain. Tolerating po, trying to stick to healthy foods. Eating meat, fish, vegetables, eggs, toast. Gained 7lbs back of the 25lbs she lost. Self-tapered to 30mg for last 2.5 weeks. Taking iron EOD. Hoping to make trip to [place] late November. Accepting award in [place] in January. IBD History: - diagnosed with panulcerative colitis diagnosed at 24 years old - initially treated with mesalamine -> caused rash - budesonide -> caused rash - prednisone -> mood changes - was in clinical remission 03/2019 on canasa 1000mg BID + Asacol 400mg BID - colo 08/2019 -> Biopsies of the right colon showed quiescent colitis, biopsies of the left colon showed moderately active chronic colitis without dysplasia -- Patient was continued on same medications given the absence of symptoms but was not in histologic remission - then started on Lialda 2.4g daily - 10/2020 fecal calprotectin was 151 - lialda increased to 4.8g daily - colo 07/2021 (pt having hematochezia, more frequent diarrhea) -> Biopsies were normal in the cecum, ascending, transverse, descending, with minimal activity in the sigmoid, moderate active colitis in the sigmoid and mild proctitis. - flare symptoms 04/2022, fecal calprotectin 932 [...] oral lesions - f/u on 08/01 -> continued??diarrhea,??rectal bleeding, and abdominal pain, but stool frequency decreased to 3 stools per night, with urge incontinence -- losing weight, 4 pounds in 1 month, abdominal and rectal pain - fecal calprotectin 07/28/22 was 119, labs 07/25 showed Hgb 9.1, ferritin 19, c diff negative ?? Review of Systems: Constitutional: No weight loss HEENT: No visual changes, URI symptoms Cardio: No chest pain/palpitations Resp: No cough, no SOB Hem/Lymph: no new lumps or bumps on body GI: see HPI : no dysuria Skin: no new rashes Musculoskeletal: no new joint pains Neuro: no new numbness, weakness in extremities All other systems negative except as above in HPI No past medical history on file. No past surgical history on file. Social History: reports that she quit smoking about 19 years ago. Her smoking use included cigarettes. She has never used smokeless tobacco. She reports that she does not drink alcohol and does not use drugs. Family History: family history is not on file. Current Outpatient Medications Medication Sig Dispense Refill ??? multivitamin (THERAGRAN) Tablet Take 1 tablet by mouth daily. ??? inFLIXimab (Remicade) 100 mg Recon Soln Inject into the vein. ??? ferrous sulfate EC 325 mg (65 mg iron) Tablet, Delayed Release (E.C.) Take 1 tablet by mouth every other day. 30 tablet 0 ??? predniSONE (Deltasone) 20 mg Tablet Take 2 tablets by mouth daily. (Patient taking differently:Take 30 mg by mouth daily.) 60 tablet 0 ??? pantoprazole EC (Protonix) 40 mg Tablet, Delayed Release (E.C.) Take 1 tablet by mouth daily. 60 tablet 0 ??? atovaquone (Mepron) 750 mg/5 mL Suspension Take 10 mLs by mouth daily. 210 mL 0 ??? OXcarbazepine (Trileptal) 300 mg Tablet Take 1,050 mg by mouth daily. No current facility-administered medications for this visit. Allergies Allergen Reactions ??? Entyvio [Vedolizumab] Rash ??? Sulfa (Sulfonamide Antibiotics) Hives Physical Examination: BP 127/69 (BP Location (NBP): Right arm, Patient Position: Sitting, BP Cuff Sizes: Adult (25-34 cm)) Pulse 84 Ht 158.8 cm (5' 2.5) Wt 67.1 kg (147 lb 14.4 oz) BMI 26.62 kg/m?? General: Pleasant, cooperative, no acute distress HEENT: NC/AT, anicteric sclera, MMM Chest: CTAB, no wheeze, rale or rhonchi CVS: Regular rate and rhythm, normal s1/s2, No murmurs, rubs or gallops ABD: soft, normoactive bowel sounds, non-tender, non-distended, no hepatosplenomegaly appreciated Extremities: Warm and well perfused. No edema Skin: No rash or lesion, no jaundice Neuro: Grossly intact, moves all extremities. No asterixis Labs: Reviewed in EDH/Scan Docs Lab Results Component Value Date WBC 14.4 (H) 08/14/2022 HGB 7.7 (L) 08/14/2022 HCT 22.8 (L) 08/14/2022 MCV 87.0 08/14/2022 PLATELET 621 (H) 08/14/2022 Chemistry Component Value Date/Time NA 129 (L) 08/14/2022 0512 K 3.7 08/14/2022 0512 CL 94 (L) 08/14/2022 0512 CO2 29 08/14/2022 0512 BUN 14 08/14/2022 0512 CREATININE 0.65 (L) 08/14/2022 0512 Component Value Date/Time CALCIUM 7.9 (L) 08/14/2022 0512 ALKPHOS 47 08/14/2022 0512 AST 12 08/14/2022 0512 ALT 11 08/14/2022 0512 BILITOT <0.2 (L) 08/14/2022 0512 Pertinent Endoscopic Procedures/Reports: Reviewed ?? Pertinent Recent Imagin08/09/22 CT A/P IMPRESSION ?? Descending and rectosigmoid colitis. No abscess nor perforation. ? ASSESSMENT & PLAN: Elsa Lujan??61F w/ PMH of??panulcerative colitis??c/b hospitalization 07/2022 present to GI clinic to establish care. Elsa has significantly improved since her hospitalization and will plan to continue Remicade (complete load, then q8w at 10mg/kg). We will continue prednisone taper today. We spent today's visit counseling further on Remicade's role in management and that she should expect this to be a long-term medication unless she experiences an adverse event from it. Reviewed maintenance care today, will need skin check while on anti-TNF and reviewed vaccines she is due for. All questions answered today. ?? Recommendations: - s/p Remicade 10mg/kg loading x2 (08/11/22, 08/25/22) - continue outpatient Remicade load (w 6) then q8w - Remicade trough 8 weeks after load - prednisone 20mg daily x2 weeks, 10mg x2 weeks - s/p 14 days hydrocortisone proctofoam therapy - PUD ppx with PPI daily, continue until on 10mg prednisone daily - PCP ppx, continue until on 10mg prednisone daily - Vitamin D supplement; check level - CBC, CRP with Remicade level - HBV immune; Quant gold negative - avoid opiates and NSAIDs - one iron tablet EOD with Vitamin C - Dermatology referral for annual skin exam - DEXA due, f/up with PCP - due for Shingrex, f/up with PCP - due for second booster COVID, f/up with PCP - UTD on flu vaccine 2021 IBD Health Maintenance (updated periodically) (1) Colonoscopy / Colon cancer surveillance: -Colonic disease: [facility] -Date of IBD dx: age 24 (2) Tobacco use: none (3) Vaccinations: -Flu: Recommend annually -PCV13 (Prevnar): UTD -PPSV23 (Pneumovax) UTD Adult patients with IBD receiving immunosuppressive therapy should receive pneumococcal vaccinationwith both the PCV-13 and PPSV23, in accordance with national guidelines. If no prior vaccination, given PCV-13 first followed > 8 weeks later by PPSV23. Repeat PPSV23 in 5 years but not twice before age 65yo. -HPV (under age 45yo): N/A -Varicella exposure previously or vaccine: exposure in childhood -MMR vaccine history: UTD -Zoster: Adults with IBD over the age of 50 should consider vaccination against herpes zoster, including certain subgroups of immunosuppressed patients. -Hep A/B: UTD -Meningococcal vaccine (if < 23 yo): N/A (4) Tuberculosis risk assessment: -Quantiferon: neg -Additional risk factors: no (5) Depression screen: Down, depressed, hopeless? Little interest in doing things? (6) Skin Health: -Personal hx of skin cancers: none -Prior use of AZA, MTX or anti-TNF: On Remicade -Dermatology: referral placed for 2022 (7) Bone Health Risk assessment -Age (M>50 or post-menopausal) -Gender: -Prednisone use: -Prior fracture: -Vitamin D: -Hypogonadism: -Bone mineral density screening exam (DEXA): Recommend at diagnosis and consider it every 2-3 years thereafter (8) Last pap smear if female: aged out of screening Women with IBD on immunosuppressive therapy should undergo annual cervical cancer screening. (9) Radiation exposure (CTs): Follow up 5 months This case was discussed with Dr. Rohith Villarreal MD Fellow in Gastroenter[place] [address] P: [phone] F: [phone] CC Aria Thompson MD [address] [place] [id number] documented in this encounter Plan of Treatment Upcoming Encounters Date Type Department Care Team (Late st Contact Info) Description 06/25/2024 9:30 AM EDT Office Visit [place] [address] Janice Villarreal MD [facility] [address] Scheduled Referrals Name Type Priority Associated Diagnoses Orde r Schedule Referral to Dermatology Outpatient Referral Routine Ulcerative pancolitis with other complication Ordered: 08/31/2022 documented as of this encounter Visit Diagnoses Diagnosis Ulcerative pancolitis with other complication documented in this encounter Care Teams Food And Beverage Outlets Manager Relationship Specialty Start Date End Date Pradeep Gallardo APRN [facility] [address] [place] [id number] PCP - General 07/19/10 documented as of this encounter
--- OUTSIDE RECORDS SUMMARY | 2024-03-19 02:05 | XMS_ITS | Encounter Summary ---
[facility] Organization [facility] [place] [address] Care Team Providers Care Clip Riveter Name Role Phone Paulina Pradeep PATRIC Primary Care Provider [phone] Encounter Details Date Type Department Care Team (Late st Contact Info) Description 08/22/2023 Telephone [place] [phone] Janice Villarreal MD [facility] [address] Social History Tobacco Use Types Packs/Day Years [...] Telephone Encounter - Janice Villarreal MD - 08/22/2023 11:03 AM EST LFTs continue to be high, mildly increased. Plan for serologic testing- if negative consider MRCP to evaluate for PSC. Finally, if workup is unrevealing would plan to decrease Remicade dose to 5mg/kg. Discussed plan with patient. Janice Villarreal MD Gastroenterology and Hepatology 08/22/2023 11:05 AM Pager # [phone] documented in this encounter Plan of Treatment Upcoming Encounters Date Type Department Care Team (Late st Contact Info) Description 06/25/2024 9:30 AM EDT Office [place] [address] Janice Villarreal MD [facility] [place] [address] documented as of this encounter Results * Ceruloplasmin (12/26/2023 2:08 PM EDT) Ceruloplasmin 29.6 16.0 - 45.0 mg/dL [facility] Blood 12/26/2023 2:08 PM EDT 12/26/2023 2:27 PM EDT Narrative Resulting Agency Comment Spec In Lab Janice Villarreal MD CHEMISTRY ORDERABLES Performing Organization Address City/[facility]/ZIP Co de Phone Number [facility] [place] [address] * A1AT Serum Concentration (12/26/2023 2:08 PM EDT) A1AT 155 90 - 200 mg/dL [facility] Blood 12/26/2023 2:08 PM EDT 12/26/2023 2:27 PM EDT Narrative Resulting Agency Comment Spec In Lab Janice Villarreal MD CHEMISTRY ORDERABLES [facility] [place] [address] * Ferritin (12/26/2023 2:08 PM EDT) Ferritin 55 11 - 328 ng/mL [facility] Comment: Please note that as of 08/01/2023, the reference intervals for Ferritin have been updated. Blood 12/26/2023 2:08 PM EDT 12/26/2023 2:27 PM EDT Narrative Resulting Agency Comment Spec In Lab Janice Villarreal MD CHEMISTRY ORDERABLES Performing Organization Address [facility] Co de Phone Number [facility] [place] [address] * Iron and TIBC (12/26/2023 2:08 PM EDT) Iron 94 30 - 150 mcg/dL [facility] TIBC 298 250 - 450 mcg/dL [facility] Iron Saturation 32 20 - 50 % [facility] Blood 12/26/2023 2:08 PM EDT 12/26/2023 2:27 PM EDT Narrative Resulting Agency Comment Spec In Lab Janice Villarreal MD CHEMISTRY ORDERABLES Performing Organization Address [facility] de Phone Number [facility] [place] [address] * Lipid Panel (Reflex Direct LDL) (12/26/2023 2:08 PM EDT) Chol, Total 273 mg/dL [facility] Comment: Desirable: ? <200 mg/dL Borderline High: 200-239 mg/dL Higher: ?>co=528 mg/dL Triglycerides 36 mg/dL [facility] Comment: Normal: ?<150 mg/dL Borderline High: 150-199 mg/dL High: ?200-499 mg/dL Very High: ? >bl=321 mg/dL HDL 140 mg/dL [facility] Comment: Females: High Risk: <50 mg/dL Males: High Risk: <40 mg/dL LDL Cholesterol 126 mg/dL [facility] Comment: Desirable: ? <100 mg/dL Above Desirable: 100-129 mg/dL Borderline High: 130-159 mg/dL High: ?160-189 mg/dL Very High: ? >wi=472 mg/dL Lipid Interpretation See Note [facility] Comment: It is important to review [...] ACC/AHA Guidelines (most recently Jenni et al. [facility] 05/30/22): For individuals with atherosclerotic cardiovascular disease (ASCVD)or LDL >lc=764 mg/dL, use a high-intensity statin (40-80 mg [...] Villarreal MD CHEMISTRY ORDERABLES Performing Organization Address [facility] Co de Phone Number [facility] [place] [address] * Hemoglobin A1c (12/26/2023 2:08 PM EDT) Pathologist [facility] Hemoglobin A1C 5.3 4.3 - 5.6 % [facility] Comment: Reference Range: 4.3 - 5.6% [...] Mellitus, Diabetes Care 2013; 36: Suppl. 1, U37-55 Est Avg Gluc 106 mg/dL [facility] Blood 12/26/2023 2:08 PM EDT 12/26/2023 2:27 PM EDT Narrative Resulting Agency Comment Spec In Lab Janice Villarreal MD CHEMISTRY ORDERABLES Performing Organization Address [facility] de Phone Number [facility] [place] [address] * Protein Electrophoresis, serum (12/26/2023 2:08 PM EDT) Pathologist [facility] Total Prot Elec 6.6 6.1 - 8.0 g/dL [facility] Albumin Elect 4.65 3.20 - 5.20 g/dL [facility] Alpha1-Globul in 0.17 0.10 - 0.30 g/dL [facility] Alpha2-Globul in 0.63 0.40 - 0.90 g/dL [facility] Beta Globulin 0.53 0.50 - 1.00 g/dL [facility] Gamma Globulin 0.62 0.50 - 1.30 g/dL [facility] M1 Band None Detected None Detected [facility] Blood 12/26/2023 2:08 PM EDT 12/26/2023 2:27 PM EDT Narrative Resulting Agency Comment Spec In Lab Janice Villarreal MD CHEMISTRY ORDERABLES Performing Organization Address [facility]/ZIP Co de Phone Number [facility] [place] [address] * IgG (12/26/2023 2:08 PM EDT) IgG 877 700 - 1,600 mg/dL [facility] Comment: Pediatric Reference Intervals obtained from the [employer] Reference Interval project. http://www.[employer].ca/caliperproject/index.html Blood 12/26/2023 2:08 PM EDT 12/26/2023 2:27 PM EDT Narrative Resulting Agency Comment Spec In Lab Janice Villarreal MD IMMUNOLOGY ORDERABLE S Performing Organization Address [facility] Co de Phone Number [facility] [place] [address] * Mitochondrial Antibody, M2 (12/26/2023 2:08 PM EDT) Mitochon Ab <0.1 <0.1 (Negative) U [facility] Comment: Test Performed by: [facility] [place] [address] Clinical Appeals Specialist: Basil Retana M.D. Ph.D.; CLIA# [id number] Blood 12/26/2023 2:08 PM EDT 12/26/2023 3:55 PM EDT Narrative Resulting Agency Comment Spec In Lab Janice Villarreal MD IMMUNOLOGY ORDERABLE S Performing Organization Address City/[facility]/ZIP Co de Phone Number [facility] [place] [address] * Smooth Muscle Antibody (12/26/2023 2:08 PM EDT) Sm Muscle Ab Negative Negative [facility] Comment: Negative: No further testing will be performed ADDITIONAL INFORMATION This test was developed and its performance characteristics determined by [facility] in a manner consistent with CLIA requirements. This test has not been cleared or approved by the U.S. Food and Drug Administration. Test Performed by: [facility] [address] [place] [address] Clinical Appeals Specialist: Basil Retana M.D. Ph.D.; CLIA# [id number] Blood 12/26/2023 2:08 PM EDT 12/26/2023 3:55 PM EDT Narrative Resulting Agency Comment Spec In Lab Janice Villarreal MD IMMUNOLOGY ORDERABLE S [facility] [place] [address] * TORRES Antibody Screen (12/26/2023 2:08 PM EDT) Antinuclear Ab Negative Negative [facility] Comment: This antinuclear antibody (TORRES) screen is a qualitative test performed using a fluoroenzyme immunoassay on the [employer] 250 analyzer. This screen is designed to detect antibodies to U1RNP, SS-A/Ro, SS-B/La, centromere B, Scl-70, Maru-1, and Sm(Lux) proteins in serum samples. Antibodies to other nuclear antibodies will not be detected with this assay. This TORRES screen is also performed in concert with a quantitative for IgG antibodies to dsDNA. dsDNA Ab 1.1 <=15.0 IU/mL [facility] Comment: <10 negative 10-15 equivocal >15 positive This dsDNA antibody result was generated using a fluoroenzyme immunoassay on the [employer] 250 analyzer. This quantitative test is designed to detect IgG antibodies directed against double stranded DNA in human serum. The presence of antibodies that recognize dsDNA is a highly specific marker for systemic lupus erythematosus. Please note that as of 06/20/2022 that this testing is performed by the Special [facility] Laboratory at [facility]. This change in testing location is associated with a change is testing method and reference intervals. Please review the results of this test in association with the posted reference intervals. Blood 12/26/2023 2:08 PM EDT 12/27/2023 7:26 AM EDT Narrative Resulting Agency Comment Spec In Lab Janice Villarreal MD IMMUNOLOGY ORDERABLE S Performing Organization Address [facility]/[place] Co de Phone Number [facility] [place] [address] * HIV Screen, 4th Generation ([facility]/CGP/APD/NLH) (12/26/2023 2:08 PM EDT) HIV-1/2 Ab and Ag Negative Negative [facility] Comment: This 4th Generation HIV test [...] HIV Comment Low Risk of HIV Infection [facility] Blood 12/26/2023 2:08 PM EDT 12/26/2023 2:27 PM EDT Narrative Resulting Agency Comment Spec In Lab Janice Villarreal MD IMMUNOLOGY ORDERABLE S Performing Organization Address [facility] Co de Phone Number [facility] [place] [address] * Hepatitis C Antibody (12/26/2023 2:08 PM EDT) Hepatitis C Ab Negative Negative [facility] Blood 12/26/2023 2:08 PM EDT 12/26/2023 2:27 PM EDT Narrative Resulting Agency Comment Spec In Lab Janice Villarreal MD IMMUNOLOGY ORDERABLE S Performing Organization Address City/[facility]/ZIP Co de Phone Number [facility] [place] [address] documented in this encounter Visit Diagnoses Diagnosis Transaminitis Nonspecific elevation of levels of transaminase or lactic acid dehydrogenase (LDH) documented in this encounter Care Teams Clip Riveter Relationship Specialty Start Date End Date Pradeep Gallardo APRN [address] [address] PCP - General 07/19/10 documented as of this encounter
--- OUTSIDE RECORDS SUMMARY | 2024-03-19 02:05 | XMS_ITS | Encounter Summary ---
Author Organization [facility] Address [facility] [place] [address] Care Team Providers Care Hand Tapper Name Role Phone Paulina Pradeep SPIVEY Primary Care Provider [phone] Encounter Details Date Type Department Care Team (Late st Contact Info) Description 07/04/2023 Telephone [place] [phone] Thalia Monahan Social History Tobacco Use Types Packs/Day Years [...] encounter Miscellaneous Notes * Telephone Encounter - Thalia Monahan - 07/04/2023 10:29 AM EST Elsa Tai [id number] Diagnosis/Indication: Ulcerative pancolitis without complication [K51.00] Please review patient chart to confirm if previous Endoscopy procedure was performed within system. If yes, take note of Anesthesia type used. If previous procedure found, and with MAC/propofol Anesthesia support was used, schedule this procedure with Anesthesia and skip the Anesthesia portion of questions. If not performed within system, not performed at all, or performed with IVCS, ask Anesthesia questions. SCHEDULING QUESTIONS (ask all patient these questions) Have you ever had a/an Colonoscopy before? Yes: Date 2020 If yes, did you have any problems with the procedure (such as waking up during the procedure, pain or difficulties afterwards, etc.)? No What type of sedation was used: unkown Do you take any blood thinners or have you been diagnosed with a bleeding disorder that increases your risk of bleeding with procedures? No Do you have a Pacemaker or Defibrillator device? If yes, send pool message to Cardiology with patient information and date or procedure. No Are you a diabetic? If yes, call PCP/managing provider to discuss use of prep and any questions or concerns related to. No Do you take any iron supplements or vitamins that contain iron? No Do you have a preference regarding the gender of your provider? Yes Dr. Bobo ANESTHESIA QUESTIONS (YES to any question, please book with Anesthesia support) Have you ever been diagnosed with Pulmonary Hypertension and/or Congential Heart Disease? No Have you been diagnosed with A-Fib (atrial fibrillation) that is NOT being well controled with medications? No Have you ever had an allergic or adverse reaction to Fentanyl or Versed? No Have you had a problem with sedation or anesthesia? (Waking up during procedure, extreme confusion after, etc.) No Do you have a diagnosis of Obstructive Sleep Apnea that requires the use of a c- pap machine? No Do you use an oxygen tank at home? No Do you use a rescue inhaler more than twice per day? (COPD, severe asthma) No Do you experience breathing problems when you lay flat for a period of time? No Do you take prescription narcotic pain medications, including suboxone or methodone? No SCHEDULING CONFIRMATIONS: Please note any and all parts of your conversation with the patient here. We offer all new patients an opportunity to have an appointment with one of our associate care providers to learn more about your upcoming procedure, ask questions and get answers. These appointmentsare offered via telehealth. Would you be interested in scheduling this appointment? (Only ask if NEW referral patient; skip this question if [facility] GI provider ordered the procedure.) No Is there any other information or concerns you would like to us to share with your care team in relation to your upcoming scheduled procedure? No You must have a responsible republican who will drive you to your procedure, stay on campus for the entire duration of your procedure, and drive you home from your procedure. Who will likely be your warehouse driver for the procedure? *Patient must be scheduled for Anesthesia support if BMI is 40 or above* Height: 5'1 Weight: 140 BMI: 26.4 Age:62 y.o. documented in this encounter Plan of Treatment Upcoming Encounters Date Type Department Care Team (Late st Contact Info) Description 06/25/2024 9:30 AM EDT Office Visit [place] [address] Janice Villarreal MD [facility] [place] [address] documented as of this encounter Visit Diagnoses Not on filedocumented in this encounter Care Teams Hand Tapper Relationship Specialty Start Date End Date Pradeep Gallardo APRN [address] [address] PCP - General 07/19/10 documented as of this encounter
--- OUTSIDE RECORDS SUMMARY | 2024-03-19 02:05 | XMS_ITS | Encounter Summary ---
Author Organization [facility] [place] [address] Care Team Providers Care Instrument Repairer Name Role Phone Paulina Pradeep PATRIC Primary Care Provider [phone] Encounter Details Date Type Department Care Team (Late st Contact Info) Description 08/18/2022 Telephone [place] [phone] Jeanette Franco RN Social History Tobacco Use Types Packs/Day [...] encounter Miscellaneous Notes * Telephone Encounter - Jeanette Franco RN - 08/18/2022 12:01 PM EST TC to Elsa to review the following recommendation from Dr. Villarreal I think she should continue 40mg until her next Remicade infusion, since she isn't therapeutic yet.It may be normal to have some gas/distention as she is forming more solid BM again. I wouldn't change anything right now. * Telephone Encounter - Jeanette Franco RN - 08/18/2022 11:17 AM EST VM from Elsa, She was discharged home from the hospital on 40mg of prednisone after receiving Remicade inpatient. She is now having symptoms of constipation and wondering if she should decrease her prednisone. Feels bloated, passing gas, had a BM today, formed. No blood in stools. Requested she called our office back if she becomes nauseated or vomits. Sent her a code to sign up for [facility] documented in this encounter Plan of Treatment Upcoming Encounters Date Type Department Care Team (Late st Contact Info) Description 06/25/2024 9:30 AM EDT Office [place] [address] Janice Villarreal MD [facility] [place] [address] documented as of this encounter Visit Diagnoses Not on filedocumented in this encounter Care Teams Instrument Repairer Relationship Specialty Start Date End Date Pradeep Gallardo APRN [address] [address] PCP - General 07/19/10 documented as of this encounter
--- OUTSIDE RECORDS SUMMARY | 2024-03-19 02:05 | XMS_ITS | Encounter Summary ---
[place] [address] Care Team Providers Care Hotel Receptionist Name Role Phone Paulina Pradeep PATRIC Primary Care Provider [phone] Encounter Details Date Type Department Care Team (Late st Contact Info) Description 12/27/2023 Telephone [place] [address] Abby Baer RN Social History Tobacco Use [...] encounter Miscellaneous Notes * Telephone Encounter - Abby Baer RN - 12/27/2023 10:28 AM EDT Patient calls the office leaving a message on the RN voicemail stating that she had an appointment with Dr. Villarreal yesterday, had labs ad would like to speak with Dr. Villarreal regarding issued caused by Remicade prior to moving forward with recommendations documented in this encounter Plan of Treatment Upcoming Encounters Date Type Department Care Team (Late st Contact Info) Description 06/25/2024 9:30 AM EDT Office [place] [address] Janice Villarreal MD [facility] [place] [address] documented as of this encounter Visit Diagnoses Not on filedocumented in this encounter Care Teams Hotel Receptionist Relationship Specialty Start Date End Date Pradeep Gallardo APRN [address] [place] [address] PCP - General 07/19/10 documented as of this encounter
--- OUTSIDE RECORDS SUMMARY | 2024-03-19 02:05 | XMS_ITS | Encounter Summary ---
Author Organization [facility] [place] [address] Care Team Providers Care Technical Sales Advisor Name Role Phone Pradeep Gallardo APRN Primary Care Provider [phone] Encounter Details Date Type Department Care Team (Late Contact Info) Description 08/23/2023 Telephone [place] [address] Jeanette Franco RN Social History Tobacco Use [...] Telephone Encounter - Jeanette Franco RN - 08/23/2023 12:37 PM EST Received VM from [facility], Due for new orders and PA for Remicade. Based on chart review, further liver work up is pending. Will hold until dosing for next infusion can be confirmed. documented in this encounter Plan of Treatment Upcoming Encounters Date Type Department Care Team (Late st Contact Info) Description 06/25/2024 9:30 AM EDT Office [place] [phone] Janice Villarreal MD [facility] [place] [address] documented as of this encounter Visit Diagnoses Not on filedocumented in this encounter Care Teams Technical Sales Advisor Relationship Specialty Start Date End Date Pradeep Gallardo APRN [address] [address] PCP - General 07/19/10 documented as of this encounter
--- OUTSIDE RECORDS SUMMARY | 2024-03-19 02:05 | XMS_ITS | Encounter Summary ---
Author Organization [facility] [place] [address] Care Team Providers Care Rack Puller Name Role Phone Paulina Pradeep SPIVEY Primary Care Provider [phone] Encounter Details Date Type Department Care Team (Late st Contact Info) Description 08/24/2023 Tele[place] [address] Jeanette Franco RN Social History [...] Telephone Encounter - Jeanette Franco RN - 08/24/2023 9:22 AM EST Prior Authorization Facility: [facility] TIN: [id number] Medication: Remicade J-code: [id number] Dosage: 5 mg/kg Frequency & Route: every 8 weeks Insurance & Phone #: [employer] [facility] [phone] ID #: [id number] Trialed (dosage, frequency): mesalamine, budesonide (rashes), prednisone, Entyvio (hives 07/05/22 - 07/19/22) Diagnosis/ICD-10: UC K51.90 Notes: Confirmed change from 10mg/kg to 5mg/kg with Dr. Villarreal given increased LFT's and patients preferenceto decrease dose while work up is pending. No PA required, confirmed this information was updated 07/2023 for their plan documented in this encounter Plan of Treatment Upcoming Encounters Date Type Department Care Team (Late st Contact Info) Description 06/25/2024 9:30 AM EDT Office [place] [address] Janice Villarreal MD [facility] [place] [address] documented as of this encounter Visit Diagnoses Not on filedocumented in this encounter Care Teams Rack Puller Relationship Specialty Start Date End Date Pradeep Gallardo APRN [address] [address] PCP - General 07/19/10 documented as of this encounter
--- OUTSIDE RECORDS SUMMARY | 2024-03-19 02:05 | XMS_ITS | Encounter Summary ---
Author Organization [facility] [place] [address] Care Team Providers Care Hot Metal Car Operator Name Role Phone Paulina Pradeep SPIVEY Primary Care Provider [phone] Encounter Details Date Type Department Care Team (Late st Contact Info) Description 08/14/2022 Telephone [place] [address] Jay Tom RN Social History Tobacco Use Types Packs/Day [...] encounter Miscellaneous Notes * Telephone Encounter - Jay Tom RN - 08/15/2022 10:53 AM EST Update Called [employer] [place] Plan confirms PA is not specific to a location. Can get infusion at any in network outpatient setting Will send orders to [facility] once signed by Dr. rOellana and plan for infusion there. * Telephone Encounter - Jeanette Franco RN - 08/15/2022 10:05 AM EST VM from Cecy at [facility], Elsa contacted them to see if she could get her week 2 infusions set upwith them. Left VM for Elsa that an urgent authorization was approved to be at [facility] and we are sending orders. Requested that for at least the induction doses that Elsa gets these done at [facility] so she can stay on track with induction. Could consider changing to [facility] once on maintenance. Requested she called the office back to confirm this plan. * Telephone Encounter - Jay Tom RN - 08/14/2022 3:03 PM EST Approved for 12 months through 08/14/23 Will fax orders to [facility] once signed by Dr. Orellana. Next infusion due 08/25/22 * Telephone Encounter - Jay Tom RN - 08/14/2022 8:52 AM EST Prior Authorization Facility: [facility] TIN: [id number] Medication: Remicade J-code: [id number] Dosage: 10 mg/kg Frequency & Route: IV week 2, 6, then every 8 Insurance & Phone #: BCBS [facility] ID #: [id number] Trialed (dosage, frequency): mesalamine, budesonide (rashes), prednisone, Entyvio (hives 07/05/22 - 07/19/22) Diagnosis/ICD-10: UC K51.90 Notes:Received first dose as inpatient on 08/11 Submitted marked urgent via CMM Pending Roche: [id number] KATE documented in this encounter Plan of Treatment Upcoming Encounters Date Type Department Care Team (Late st Contact Info) Description 06/25/2024 9:30 AM EDT Office Visit [place] [address] Janice Villarreal MD [facility] [place] [address] documented as of this encounter Visit Diagnoses Not on filedocumented in this encounter Care Teams Hot Metal Car Operator Relationship Specialty Start Date End Date Pradeep Gallardo APRN [address] [address] PCP - General 07/19/10 documented as of this encounter
--- OUTSIDE RECORDS SUMMARY | 2024-03-19 02:05 | XMS_ITS | Encounter Summary ---
Author Organization [facility] Address [facility] [place] [address] Care Team Providers Care Installer Apprentice Name Role Phone Pradeep Gallardo APRN Primary Care Provider Encounter Details Date Type Department Care Team (Latest Contact Info) Description 12/26/2023 Travel Social History Tobacco Use Types Packs/Day [...] 9:30 AM EDT Office [place] [address] Janice Villarreal MD [facility] [place] [address] documented as of this encounter Visit Diagnoses Not on filedocumented in this encounter Care Teams Installer Apprentice Relationship Specialty Start Date End Date Pradeep Gallardo APRN [facility] [address] [place] [address] PCP - General 07/19/10 documented as of this encounter
--- OUTSIDE RECORDS SUMMARY | 2024-03-19 02:05 | XMS_ITS | Encounter Summary ---
Author Organization [facility] [place] [address] Care Team Providers Care Customer Contact Representative Name Role Phone PaulinaPradeep PATRIC Primary Care Provider [phone] Encounter Details Date Type Department Care Team (Late st Contact Info) Description 10/12/2023 [place] [phone] Claire Phillips RN Social History Tobacco Use Types Packs/Day [...] encounter Miscellaneous Notes * Telephone Encounter - Claire Phillips RN - 10/12/2023 8:49 AM EST TC with patient to schedule the DXA that was ordered on 06/13/[address] Villarreal. The patient declined, stating that she had it done at [facility] in 2019. Ordering provider notified. documented in this encounter Plan of Treatment Upcoming Encounters Date Type Department Care Team (Late st Contact Info) Description 06/25/2024 9:30 AM EDT Office Visit [place] [phone] Janice Villarreal MD [facility] [place] [address] documented as of this encounter Visit Diagnoses Not on filedocumented in this encounter Care Teams Customer Contact Representative Relationship Specialty Start Date End Date Pradeep Gallardo APRN [address] [address] PCP - General 07/19/10 documented as of this encounter
--- OUTSIDE RECORDS SUMMARY | 2024-03-19 02:05 | XMS_ITS | Encounter Summary ---
Author Organization [facility] [place] [address] Care Team Providers Care Insulation Foreman Name Role Phone Paulina Pradeep PATRIC Primary Care Provider [phone] Encounter Details Date Type Department Care Team (Late st Contact Info) Description 08/14/2022 Telephone Family Medicine at [facility] [address] [place] [phone] Audie Daugherty MA Social History Tobacco Use Types Packs/Day Years [...] encounter Miscellaneous Notes * Telephone Encounter - Audie Daugherty MA - 08/14/2022 12:58 PM EST Opened in error documented in this encounter Plan of Treatment Upcoming Encounters Date Type Department Care Team (Late st Contact Info) Description 06/25/2024 9:30 AM EDT Office [place] [address] Janice Villarreal MD [facility] [place] [address] documented as of this encounter Visit Diagnoses Not on filedocumented in this encounter Care Teams Insulation Foreman Relationship Specialty Start Date End Date Pradeep Gallardo APRN [address] [address] PCP - General 07/19/10 documented as of this encounter
--- OUTSIDE RECORDS SUMMARY | 2024-03-19 02:05 | XMS_ITS | Encounter Summary ---
[place] [address] Care Team Providers Care Latin Professor Name Role Phone Pradeep Gallardo VACUUM CLOSING MACHINE OPERATOR Primary Care Provider [phone] Encounter Details Date Type Department Care Team (Late st Contact Info) Description 05/16/2023 Telephone [place] [phone] Jeanette Franco RN Social History Tobacco Use [...] Telephone Encounter - Jeanette Franco RN - 05/16/2023 8:29 AM EDT TC from [facility] SERRANO sample on 05/09 for her IFX level was unable to be processed by [place] and sample was rejected.Per lab they talked to Elsa about this. Will let Dr. Villarreal know and refax level to [facility] for when she would be due for a trough again. documented in this encounter Plan of Treatment Upcoming Encounters Date Type Department Care Team (Late st Contact Info) Description 06/25/2024 9:30 AM EDT Office [place] [address] Janice Villarreal MD [facility] [place] [address] documented as of this encounter Visit Diagnoses Not on filedocumented in this encounter Care Teams Latin Professor Relationship Specialty Start Date End Date Pradeep Gallardo APRN [address] [address] PCP - General 07/19/10 documented as of this encounter
--- OUTSIDE RECORDS SUMMARY | 2024-03-19 02:05 | XMS_ITS | Encounter Summary ---
Author Organization [facility] Address [facility] [place] [address] Care Team Providers Care Fabrication And Layout Craftsman Name Role Phone PaulinaPradeep PATRIC Primary Care Provider [phone] Reason for Visit * Auth/Cert (Routine) Specialty Diagnoses / Procedures Referred By Contac t Referred To Contact Diagnoses Ulcerative (chronic) pancolitis without complications extensive UC Procedures PRO COLONOSCOPY, DIAGNOSTIC PRO COLONOSCOPY, REMV LESN, SNARE PRO COLONOSCOPY, BIOPSY PRO COLONOSCOPY, REMV LESN, SNARE PRO COLONOSCOPY, BIOPSY COLONOSCOPY, DIAGNOSTIC (WRVU 3.26) James Bobo MD [facility] [place] [address] [facility] Referral ID Status Reason Start Date Expiration Date Visits Re quested Visits Authorized [id number] 1 1 Encounter Details Date Type Department Care Team (Latest Contact Info) Description 10/09/2023 9:45 AM EST - 10/09/2023 12:13 PM [facility] Hospital Encounter [place] [address] James Bobo MD [facility] [place] [address] Discharge Disposition: Home Social History Tobacco Use [...] Sign Reading Time Taken Comments Blood Pressure 140/62 10/09/2023 11:30 AM EST Pulse 53 10/09/2023 11:05 AM EST Temperature 36 ??C (96.8 ??F) 10/09/2023 10:21 AM EST Respiratory Rate 17 10/09/2023 11:30 AM EST Oxygen Saturation 99% 10/09/2023 11:35 AM EST Inhaled Oxygen Concentration - - Weight - - Height - - Body Mass Index - - documented in this encounter Discharge Instructions * Discharge Instructions* Jaki Pulliam RN - 10/09/2023 11:11 AM EST Colonoscopy: What to Expect at Home Your Recovery Your doctor will talk to you about when you will need your next colonoscopy. Your doctor can help you decide how often you need to be checked. This will depend on the results of your test and your risk for colorectal cancer. After the test, you may be bloated or have gas pains. You may need to pass gas. If a biopsy was done or a polyp was removed, you may have streaks of blood in your stool (feces) for a few days. Problems such as heavy rectal bleeding may not occur until several weeks after the test. This isn't common. But it can happen after polyps are removed. This care sheet gives you a general idea about how long it will take for you to recover. But each person recovers at a different pace. Follow the steps below to get better as quickly as possible. How can you care for yourself at home? Activity Rest when you feel tired. You can do your normal activities when it feels okay to do so. Diet Follow your doctor's directions for eating. Unless your doctor has told you not to, drink plenty of fluids. This helps to replace the fluids that were lost during the colon prep. Do not drink alcohol. Medicines Your doctor will tell you if and when you can restart your medicines. He or she will also give you instructions about taking any new medicines. If you take blood thinners, such as warfarin (Coumadin), clopidogrel (Plavix), or aspirin, be sure to talk to your doctor. He or she will tell you if and when to start taking those medicines again. Make sure that you understand exactly what your doctor wants you to do. If polyps were removed or a biopsy was done during the test, your doctor may tell you not to take aspirin or other anti-inflammatory medicines for a few days. These include ibuprofen (Advil, Motrin) and naproxen (Aleve). Other instructions For your safety, do not drive or operate machinery until the medicine wears off and you can think clearly. Your doctor may tell you not to drive or operate machinery until the day after your test. Do not sign legal documents or make major decisions until the medicine wears off and you can think clearly. The anesthesia can make it hard for you to fully understand what you are agreeing to. Additional Information for Sedation Patients For patients who received sedation: You may have received medications before and/or during your procedure which effects your judgement and reaction time. Do not drive, operate machinery, drink alcoholic beverages or make important decisions for 24 hours. Be careful on stairs as you may be unsteady on your feet. You may eat a regular diet as tolerated. Do not smoke if you are alone. IV site: Slight redness or tenderness is normal, you can use a warm compress if you would like. If tenderness and/or redness increase or if foul drainage occurs, please contact your Doctor. Please call [phone] before 8pm Mon-Fri with problems, questions or concerns. If you call after 8pm or on weekends, call the Hospital at [phone] and ask to speak to the Glue Size Machine Operator bell spinner sousaphones and the boom operator will contact that person for you. When should you call for help? Call [phone] anytime you think you may need emergency care. For example, call if: You passed out (lost consciousness). You pass maroon or bloody stools. You have trouble breathing. Call your doctor now or seek immediate medical care if: You have pain that does not get better after you take pain medicine. You are sick to your stomach or cannot drink fluids. You have new or worse belly pain. You have blood in your stools. You have a fever. You cannot pass stools or gas. Watch closely for changes in your health, and be sure to contact your doctor if you have any problems. Where can you learn more? [facility]- View your After Visit Summary and more online at [email or web address] If you would like to provide feedback about your hospital experience, please call the Office of Patient and Family Relations at . If you have received this After Visit Summary in error, please immediately return it in person to the department, or notify the [facility] Privacy Office by calling toll free at between the hours of 8AM and 5PM to arrange for our retrieval of the documents at no cost to you. Content Version: 12.2 ?? 3434-2580 [employer]. Care instructions adapted under license by [facility]. If you have questions about a medical condition or this instruction, always ask your healthcare professional. [employer] disclaims any warranty or liability for your use of this information. 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 ASA 2 - Patient with mild systemic disease with no functional limitations Sedation Plan: moderate (conscious sedation) Risks and benefits of the procedure explained to the patient. Consent signed. documented in this encounter Plan of Treatment Upcoming Encounters Date Type Department Care Team (Late st Contact Info) Description 06/25/2024 9:30 AM EDT Office [place] [address] Janice Villarreal MD [facility] [place] [address] documented as of this encounter Procedures Procedure Name Priority Date/Time Associated Diagnosis Comments SPECIMEN TO PATHOLOGY Routine 10/09/2023 11:06 AM EST SURGICAL PATHOLOGY REPORT Routine 10/09/2023 11:00 AM EST Colonoscopy, Biopsy ([id number]) 10/09/2023 10:42 AM EST Ulcerative pancolitis without complication COLONOSCOPY Routine 10/09/2023 9:59 AM EST documented in this encounter Results * Specimen to Pathology (10/09/2023 11:06 AM EST) AP Specimen 10/09/2023 11:0 6 AM EST 10/09/2023 11:06 AM EST Narrative [facility] - 10/09/2023 11:06 AM EST Specimen requisition ordered. ??Separate Pathology report to follow James Bobo MD PATHOLOGY/CYTOLOGY O RDERABLES [facility] [place] [address] * Surgical Pathology Report (10/09/2023 11:00 AM EST) FINAL DIAGNOSIS (AP) [id number] ? Location: 4T; EA09; A The signing pathologist has (i) examined the relevant preparation(s) for the specimen(s) and (ii) rendered or confirmed the diagnosis(es). . ?Surgical Pathology DIAGNOSIS A - Random colon r/o dysplasia, biopsy: - ??Colonic mucosa with mild architectural disarray, negative for dysplasia. CR-PX Electronically signed by: ?[place] VENTURA, Escobar Verified: ??10/17/2023 15:49 ??Pathologist Performed at: ??-[facility] Dept. of Pathology, [place] [address] Electric Mule Operator: Bird Jarvis MD, FCAP, ??CLIA Certificate: [id number] SPECIMEN(S) SUBMITTED A - random colon r/o dysplasia, biopsy (1) CLINICAL INFORMATION 62-year-old female with history of colitis, normal-appearing colon SPECIMEN PROCESSING A - Labeled/Fixative: Random colon rule out dysplasia, formalin. Quantity/Size: Multiple, averaging 0.3 cm. Tissue Description: Soft, pink tissues. Sections/Processi ng: Submitted in toto ??in 3 cassettes labeled A1-A3. ??sns 10/17/2023 3:49 PM EST [facility] 10/09/2023 11:0 0 AM EST James Bobo MD PATHOLOGY/CYTOLOGY O RDERABLES [facility] [place] [address] * COLONOSCOPY (10/09/2023 9:59 AM EST) COLONOSCOPY [facility] Endoscopy Procedure Date: 10/09/2023 9:59 AM ? Patient Name: Elsa Lujan ? Date of : 1960 ? Age: 62 ? Order #: [id number] ? Instrument Name: [id number] ? Procedure: ? Colonoscopy Indications: ? Pt [...] preparation was evaluated ? using the BBPS (Preston Bowel ? Preparation Scale) with scores of: [...] Thompson MD GENERAL SURGICAL ORD ERABLES [employer] documented in this encounter Visit Diagnoses Not on filedocumented in this encounter Active and Recently Administered Medications Times are shown in EST. PRN Medication Order 10/07/2023 10/08/2023 10/09/2023 fentaNYL (pf) (50 mcg/mL) multi-dose injection (CANCELED) PRN, Starting on Sun10/09/23 at 1048, Until Sun10/09/23 at 1413, Intra-Operative (Intra-Procedure), Routine 1048 (Given - Provid er: Tiffanie Millan RN)1051 (Given - Provider: Tiffanie Millan RN)1054 (Given - Provider: Tiffanie Millan, WEN) midazolam (pf) (Versed) (1 mg/mL) multi-dose injection (CANCELED) PRN, Starting on Sun10/09/23 at 1048, Until Sun10/09/23 at 1413, Intra-Operative (Intra-Procedure), Routine 1048 (Given - Provid er: Tiffanie Millan RN)1051 (Given - Provider: Tiffanie Millan RN)1054 (Given - Provider: Tiffanie Millan RN)1058 (Given - Provider: Tiffanie Millan RN) documented in this encounter Care Teams Fabrication And Layout Craftsman Relationship Specialty Start Date End Date Pradeep Gallardo APRN [address] [address] PCP - General 07/19/10 documented as of this encounter
--- OUTSIDE RECORDS SUMMARY | 2024-03-19 02:05 | XMS_ITS | Encounter Summary ---
Author Organization [facility] [place] [address] Care Team Providers Care Branch Assistant Name Role Phone Pradeep Gallardo APRN Primary Care Provider [phone] Encounter Details Date Type Department Care Team (Late Contact Info) Description 10/06/2022 Orders [place] [phone] Janice Villarreal MD [facility] [place] [address] Ulcerative pancolitis with complication Social History Tobacco [...] 9:30 AM EDT Office [place] [phone] Janice Villarreal MD [facility] [place] [address] documented as of this encounter Visit Diagnoses Diagnosis Ulcerative pancolitis with complication documented in this encounter Care Teams Branch Assistant Relationship Specialty Start Date End Date Pradeep Gallardo APRN [facility] [address] [facility] [place] [address] PCP - General 07/19/10 documented as of this encounter
--- OUTSIDE RECORDS SUMMARY | 2024-03-19 02:05 | XMS_ITS | Encounter Summary ---
Author Organization [facility] [address] Care Team Providers Care Special Police Officer Name Role Phone Pradeep Gallardo APRN Primary Care Provider [phone] Reason for Referral * Diagnostic Test (Routine) - Pending Review Specialty Diagnoses / Procedures Referred By Contac t Referred To Contact Radiology Diagnoses Transaminitis Procedures MRI Cholangiopancreatography WO Contrast Janice Villarreal MD [facility] [place] [address] [place] [address] Referral ID Status Reason Start Date Expiration Date Visits Requested Visits Authorized [id number] Pending Review Specialty Service Requested 12/26/2023 06/27/2025 1 1 Encounter Details Date Type Department Care Team (Late st Contact Info) Description 12/26/2023 1:00 PM EDT Office [place] [address] Janice Villarreal MD [facility] [place] [address] Ulcerative pancolitis without complication (Primary Dx); Transaminitis [...] Sign Reading Time Taken Comments Blood Pressure 143/84 12/26/2023 1:08 PM EDT Pulse 71 12/26/2023 1:08 PM EDT Temperature - - Respiratory Rate - - Oxygen Saturation - - Inhaled Oxygen Concentration - - Weight 67.4 kg (148 lb 11.2 oz) 12/26/2023 1:08 PM EDT Height - - Body Mass Index 26.34 06/13/2023 11:12 AM EDT documented in this encounter Progress Notes * Janice Villarreal MD - 12/26/2023 1:00 PM EDT Images from the original note were not included. [facility] Division of Gastroenterology and Hepatology History of Present Illness: Elsa Khant 63F w/ PMH of extensive colitis following up in GI clinic. Interval Events: -09/2023 staging colonoscopy normal -07/2023 infliximab trough [...] elevated, AST 53, ALT 108, ALP/TB wnl -recovering from the flu, had it in [place] in October 2031. Took a few weeks to recover. Now finallyfeels back to baseline -GI symptoms appear well controlled. However, she thinks sometimes she feels a bit more of an upset stomach when she is eating. 1BM daily, formed. No blood in stool. No other abdominal pain or distention. -Energy level feels good for Elsa -No painful rash, joint pains, oral ulcers, vision changes. -Spending free time doing yoga, focusing on nutrition, walking. Waiting for warmer weather to startgardening again -stopped taking iron supplement; taking Vitamin D - avoiding opiates and NSAIDs -No F/chills or weight changes. No N/V. GI History: Patient transferred care from [place] (history below). Well-controlled ulcerative colitis until April [...] 9.9, CRP 4.8 -Infliximab trough after load -04/2023 CRP 0.38 mg/dL (3.8 in our system) Review of Systems: Constitutional: No weight loss [...] Sulfa (Sulfonamide Antibiotics) Hives Physical Examination: BP 143/84 (BP Location (NBP): Right arm, Patient Position: Sitting, BP Cuff Sizes: Adult (25-34 cm)) Pulse 71 Wt 67.4 kg (148 lb 11.2 oz) BMI 26.34 kg/m?? General: Pleasant, cooperative, no acute distress [...] 306 06/13/2023 Chemistry Component Value Date/Time NA 130 (L) 01/04/2023 1145 K 4.3 01/04/2023 1145 CL 96 (L) 01/04/2023 1145 CO2 27 01/04/2023 1145 BUN 13 01/04/2023 1145 CREATININE 0.61 (L) 01/04/2023 1145 Component Value Date/Time CALCIUM 9.0 01/04/2023 1145 ALKPHOS 47 08/14/2022 0512 AST 12 08/14/2022 0512 ALT 11 08/14/2022 0512 BILITOT <0.2 (L) 08/14/2022 0512 Pertinent Endoscopic Procedures/Reports: 09/2023 Colonoscopy - The entire examined colon is normal. Biopsied. - The examined portion of the ileum was normal. - Diverticulosis in the sigmoid colon and in the descending Path- - Colonic mucosa with mild architectural disarray, negative for dysplasia. Pertinent Recent Imagin08/09/22 CT A/P IMPRESSION Descending and rectosigmoid colitis. No abscess nor perforation. ASSESSMENT & PLAN: Elsa Lujan 63F w/ PMH of panulcerative colitis c/b hospitalization 07/2022 following [...] activity if we continue at this dose. Counseled today on role of resuming 10mg/kg doseing q8w. She is a little hesitant because of how much better she feels during her current infusions but is willing to try. We could alternatively increase her frequency but she is open to first trying the increased dose. As her liver tests remain elevated, it seems less likely her infliximab is causing this. Serologic workup notable for positive TORRES (1:2560) but negative SMA/AMA. IgG normal. I will repeat OTRRES here toascertain reflex antibody testing results, as well as SPEP. 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 Discussed role of liver biopsy if findings are equivocal. Recommendations: - s/p Remicade 10mg/kg loading x2 (08/11/22, 08/25/22) - resume initial dose of outpatient Remicade 10mg/kg q8w - will plan for trough after two doses - TORRES, SMA, AMA, SPEP - MRCP - Consider liver biopsy - HBV immune; Quant gold negative - psyllium daily, miralax daily prn - avoid opiates and NSAIDs - Dermatology UTD 2023 - DEXA order , will need to f/up if patient had this done at OSH - Due for Shingrix. Defers COVID booster IBD Health Maintenance [...] AZA, MTX or anti-TNF: On Remicade -Dermatology: UTD (7) Bone Health Risk assessment -Age (M>50 [...] (CTs): 45 minutes spent in chart review, [id number] time and coordination of care with the patient today. Follow up 6 months Janice Villarreal MD Gastroenterology and Hepatology 12/26/2023 1:44 PM Pager # [phone] documented in this encounter Plan of Treatment Upcoming Encounters Date Type Department Care Team (Late st Contact Info) Description 06/25/2024 9:30 AM EDT Office [place] [address] Janice Villarreal MD [facility] [place] [address] Scheduled Orders Name Type Priority Associated Diagnoses Orde r Schedule TORRES Antibody Screen Lab Routine Transaminitis Expected: 12/26/2023 (Approximate), Expires: 06/26/2024 IgG Lab Routine Transaminitis Expected: 12/26/2023 (Approximate), Expires: 06/26/2024 Protein Electrophoresis, serum Lab Routine Transaminitis Expected: 12/26/2023 (Approximate), Expires: 06/26/2024 documented as of this encounter Results * MRI Cholangiopancreatography WO Contrast (01/17/2024 9:20 AM EDT) WORKSTATION ID [id number] RAD Anatomical Region Laterality Modality Magnetic Resonan ce Impressions 01/17/2024 11:00 AM EDT No stricture or beading to suggest PSC. Thank you for letting us participate in the care of this patient. ??If you are a health care provider and have any questions regarding this report, please contact the number below. ??For patients who have questions please contact the health rn palliative care that requested your imaging first. ? Electronically signed by: MUNA CAMPBELL MD, [facility] ([phone]), at 01/17/2024 11:00 AM Narrative 01/17/2024 11:00 [...] No focal marrow signal abnormality. Procedure Note Muan Campbell MD - 01/17/2024 EXAMINATION: MRI CHOLANGIOPANCREATOGRAPHY [...] patients who have questions please contactthe health rn palliative care that requested your imaging first. Electronically signed by: MUNA CAMPBELL MD, [facility]([phone]), at 01/17/2024 11:00 AM Janice Villarreal MD IMG MRI ORDERABLES * Mitochondrial Antibody, M2 (12/26/2023 2:09 PM EDT) Mitochon Ab <0.1 <0.1 (Negative) U [facility] Comment: Test Performed by: [address] [address] Driller And Broacher: Basil Retana M.D. Ph.D.; CLIA# [id number] Blood 12/26/2023 2:09 PM EDT 12/26/2023 3:55 PM EDT Narrative Resulting Agency Comment Spec In Lab Janice Villarreal MD IMMUNOLOGY ORDERABLE S [facility] [place] [address] * Smooth Muscle Antibody (12/26/2023 2:09 PM EDT) Pathologist [facility] [place] Sm Muscle Ab Negative Negative [facility] Comment: Negative: No further testing will be performed ADDITIONAL INFORMATION This test was developed and its performance characteristics determined by [facility] in a manner consistent with CLIA requirements. This test has not been cleared or approved by the U.S. Food and Drug Administration. Test Performed by: [facility] [address] [place] [address] Driller And Broacher: Basil Retana M.D. Ph.D.; CLIA# [id number] Blood 12/26/2023 2:09 PM EDT 12/26/2023 3:55 PM EDT Narrative Resulting Agency Comment Spec In Lab Janice Villarreal MD IMMUNOLOGY ORDERABLE S [facility] [place] [address] * (ABNORMAL) Comprehensive metabolic panel (non-fasting) (12/26/2023 2:08 PM EDT) Pathologist [facility] [place] Glucose Lvl 104 65 - 199 mg/dL [facility] Comment:Diabetes: >=200 mg/d L plus symptoms BUN 11 8 - 18 mg/dL [facility] Creatinine 0.62(L) 0.70 - 1.20 mg/dL [facility] Sodium 127(L) 135 - 145 mmol/L [facility] Potassium 4.1 3.5 - 5.0 mmol/L [facility] Comment: Please note: ??Patients with WBC >100,000 may have falsely elevated Potassium levels. ??For accurate Potassium quantification in these patients send serum separator tube (gold top) for subsequent determinations. ??Contact the Clinical Chemistry Laboratory if there are any questions. Chloride 89(L) 98 - 107 mmol/L [facility] CO2 28 22 - 31 mmol/L [facility] Anion Gap 10 5 - 15 mmol/L [facility] Calcium 9.6 8.5 - 10.5 mg/dL [facility] Total Protein 7.0 6.1 - 8.0 g/dL [facility] Albumin 4.7 3.2 - 5.2 g/dL [facility] AST 39(H) 0 - 30 unit/L [facility] ALT 60(H) 0 - 30 unit/L [facility] Alk Phos 89 35 - 105 unit/L [facility] Total Bilirubin 0.3 0.2 - 1.3 mg/dL [facility] Estimated GFR 99 >=60 mL/min/1. 73 m?? [facility] Comment: This patient's estimated GFR [...] and symptoms in addition to eGFR. Blood 12/26/2023 2:08 PM EDT 12/26/2023 2:27 PM EDT Narrative Resulting Agency Comment Spec In Lab Janice Villarreal MD CHEMISTRY ORDERABLES [facility] [place] [address] documented in this encounter Visit Diagnoses Diagnosis Ulcerative pancolitis without complication- Primary Transaminitis Nonspecific elevation of levels of transaminase or lactic acid dehydrogenase (LDH) Transaminitis Nonspecific elevation of levels of transaminase or lactic acid dehydrogenase (LDH) documented in this encounter Care Teams Special Police Officer Relationship Specialty Start Date End Date Pradeep Gallardo APRN [address] [address] PCP - General 07/19/10 documented as of this encounter
--- OUTSIDE RECORDS SUMMARY | 2024-03-19 02:05 | XMS_ITS | Encounter Summary ---
Author Organization [facility] [place] [address] Care Team Providers Care Yarn Salvager Name Role Phone Paulina Pradeep SPIVEY Primary Care Provider [phone] Reason for Referral * Diagnostic Test (Routine) - Authorized Specialty Diagnoses / Procedures Referred By Contac t Referred To Contact Radiology Diagnoses Transaminitis Procedures IR Biopsy Liver Percutaneous Janice Villarreal MD [facility] [place] [address] [place] [address] Referral ID Status Reason Start Date Expiration Date Visits Requested Visits Authorized [id number] Authorized Specialty Service Requested 12/27/2023 06/28/2025 1 1 Encounter Details Date Type Department Care Team (Late st Contact Info) Description 12/27/2023 Orders [place] [address] Janice Villarreal MD [facility] [place] [address] Transaminitis Social History Tobacco Use Types Packs/Day [...] 9:30 AM EDT Office Visit Gastroenterology at [facility] [place] [address] Janice Villarreal MD [facility] [place] [address] Scheduled Orders Name Type Priority Associated Diagnoses Orde r Schedule IR Biopsy Liver Percutaneous Imaging Routine Transaminitis Expected: 12/27/2023, Expires: 06/28/2024 documented as of this encounter Results * (ABNORMAL) Comprehensive metabolic panel (non-fasting) (01/17/2024 9:47 AM EDT) Glucose Lvl 107 65 - 199 mg/dL [facility] Comment:Diabetes: >=200 mg/d L plus symptoms BUN 13 8 - 18 mg/dL [facility] Creatinine 0.62(L) 0.70 - 1.20 mg/dL [facility] Sodium 133(L) 135 - 145 mmol/L [facility] Potassium 4.4 3.5 - 5.0 mmol/L [facility] Comment: Please note: ??Patients with WBC >100,000 may have falsely elevated Potassium levels. ??For accurate Potassium quantification in these patients send serum separator tube (gold top) for subsequent determinations. ??Contact the Clinical Chemistry Laboratory if there are any questions. Chloride 97(L) 98 - 107 mmol/L [facility] CO2 27 22 - 31 mmol/L [facility] Anion Gap 9 5 - 15 mmol/L [facility] Calcium 9.3 8.5 - 10.5 mg/dL [facility] Total Protein 6.8 6.1 - 8.0 g/dL [facility] Albumin 4.5 3.2 - 5.2 g/dL [facility] AST 33(H) 0 - 30 unit/L [facility] ALT 42(H) 0 - 30 unit/L [facility] Alk Phos 84 35 - 105 unit/L [facility] Total Bilirubin 0.3 0.2 - 1.3 mg/dL [facility] Estimated GFR 99 >=60 mL/min/1. 73 m?? [facility] Comment: This patient's estimated GFR [...] Villarreal MD CHEMISTRY ORDERABLES Performing Organization Address City/State/[facility] Co de Phone Number [facility] [place] [address] documented in this encounter Visit Diagnoses Diagnosis Transaminitis Nonspecific elevation of levels of transaminase or lactic acid dehydrogenase (LDH) documented in this encounter Care Teams Yarn Salvager Relationship Specialty Start Date End Date Pradeep Gallardo APRN [address] [address] PCP - General 07/19/10 documented as of this encounter
--- OUTSIDE RECORDS SUMMARY | 2024-03-19 02:05 | XMS_ITS | Encounter Summary ---
Author Organization [facility] [place] [address] Care Team Providers Care Outbound Sales Advisor Name Role Phone Pradeep Gallardo APRN Primary Care Provider [phone] Reason for Visit * Reason Comments Medication Refill Encounter Details Date Type Department Care Team (Late Contact Info) Description 09/17/2022 Refill [place] [phone] Marc Cunningham MD [facility] [place] [address] Social History Tobacco Use Types Packs/Day Years [...] 9:30 AM EDT Office [place] [address] Janice Villarreal MD [facility] [place] [address] documented as of this encounter Visit Diagnoses Not on filedocumented in this encounter Care Teams Outbound Sales Advisor Relationship Specialty Start Date End Date Pradeep Gallardo APRN [facility] [[email or web address] [address] [place] [address] PCP - General 07/19/10 documented as of this encounter
--- OUTSIDE RECORDS SUMMARY | 2024-03-19 02:05 | XMS_ITS | Encounter Summary ---
Author Organization [facility] Address [facility] [place] [address] Care Team Providers Care Compound Finisher Name Role Phone Pradeep Gallardo APRN Primary Care Provider [phone] Encounter Details Date Type Department Care Team (Latest Contact Info) Description 01/04/2023 Travel Social History Tobacco Use Types Packs/Day [...] 9:30 AM EDT Office [place] [address] Janice Villarreal MD [facility] [place] [address] documented as of this encounter Visit Diagnoses Not on filedocumented in this encounter Care Teams Compound Finisher Relationship Specialty Start Date End Date Pradeep Gallardo APRN [facility] [address] [place] [address] PCP - General 07/19/10 documented as of this encounter
--- OUTSIDE RECORDS SUMMARY | 2024-03-19 02:05 | XMS_ITS | Encounter Summary ---
Author Organization [facility] [place] [address] Care Team Providers Care Gas Attendant Name Role Phone Paulina Pradeep PATRIC Primary Care Provider [phone] Encounter Details Date Type Department Care Team (Latest Contact Info) Description 06/13/2023 1:05 PM EDT Laboratory Appointment Lab [address] [place] [phone] Ulcerative pancolitis with complication; Urinary frequency Social History Tobacco Use Types [...] 9:30 AM EDT Office [place] [address] Janice Villarreal MD [facility] [place] [address] documented as of this encounter Procedures Procedure Name Priority Date/Time Associated Diagnosis Comments HC VENIPUNCTURE Routine 06/13/2023 12:11 PM EDT Ulcerative pancolitis with complication HC C-REACTIVE PROTEIN Routine 06/13/2023 12:11 PM EDT Ulcerative pancolitis with complication HEMOGRAM Routine 06/13/2023 12:11 PM EDT Ulcerative pancolitis with complication DIFFERENTIAL, AUTOMATED Routine 06/13/2023 12:11 PM EDT Ulcerative pancolitis with complication HC VITAMIN D TOTAL-25 HYDROXY Routine 06/13/2023 12:11 PM EDT Ulcerative pancolitis with complication HC CBC,PLT & AUTO DIFF Routine 06/13/2023 12:11 PM EDT Ulcerative pancolitis with complication documented in this encounter Results * (ABNORMAL) Differential, Automated (06/13/2023 12:11 PM EDT) Neutrophils % 26.6 % [facility] Neutr Abs (ANC) 1.18(L) 1.70 - 6.10 x10(3)/mc L [facility] Lymphocytes % 48.3 % [facility] Lymphocytes Abs 2.1 0.9 - 3.2 x10(3)/mc L [facility] Monocytes % 12.2 % [facility] Monocyte Abs 0.5 0.3 - 0.9 x10(3)/mc L [facility] Eosinophils % 11.3 % [facility] Eosinophils Abs 0.5(H) 0.0 - 0.4 x10(3)/mc L [facility] Basophils % 1.4 % [facility] Basophils Abs 0.1 0.0 - 0.1 x10(3)/mc L [facility] Immature Gran % 0.20 % [facility] Comment: Immature granulocytes(IG's)percentage and absolute count will include metamyelocytes, myelocytes, and promyelocytes. Blood smears from CBCs yielding IG's will be scanned manually for concordance. If this scan disagrees with the automated IG or if promyelocytes are noted, a manual differential will be performed. Polina Gran Abs 0.01 0.00 - 0.04 x10(3)/ L [facility] Blood 06/13/2023 12:1 1 PM EDT 06/13/2023 12:19 PM EDT Narrative Resulting Agency Comment Spec In Lab Janice Villarreal MD HEMATOLOGY ORDERABLE S [facility] [place] [address] * (ABNORMAL) Hemogram (06/13/2023 12:11 PM EDT) WBC 4.4 4.0 - 9.5 x10(3)/[facility] RBC 4.10 4.00 - 5.21 x10(6)/[facility] Hemoglobin 12.5 11.7 - 15.5 g/dL [facility] Hematocrit 35.6(L) 35.7 - 45.8 % [facility] MCV 86.8 82.6 - 94.4 [facility] MCH 30.5 27.1 - 32.0 pg [facility] MCHC 35.1(H) 31.7 - 35.0 g/dL [facility] Platelets 306 145 - 357 x10(3)/[facility] RDWSD 48.8(H) 37.0 - 46.0 [facility] RDWCV 15.2(H) 11.5 - 14.1 % [facility] MPV 8.8 7.6 - 12.9 [facility] nRBC % Auto 0.0 % [facility] nRBC Abs Auto 0.000 0.000 - 0.000 x10(3)/[facility] Blood 06/13/2023 12:1 1 PM EDT 06/13/2023 12:19 PM EDT Narrative Resulting Agency Comment Spec In Lab Janice Villarreal MD HEMATOLOGY ORDERABLE S [facility] [place] [address] * CRP, acute inflammation (06/13/2023 12:11 PM EDT) CRP 3.4 <=4.9 mg/L [facility] Blood 06/13/2023 12:1 1 PM EDT 06/13/2023 12:19 PM EDT Narrative Resulting Agency Comment Spec In Lab Janice Villarreal MD CHEMISTRY ORDERABLES Performing Organization Address [facility] Co de Phone Number [facility] [place] [address] * Vitamin D, 25-Hydroxy (06/13/2023 12:11 PM EDT) 25-OH Vit D Total 72 21 - 100 ng/mL [facility] 25-OH Vit D Interp Sufficient [facility] Blood 06/13/2023 12:1 1 PM EDT 06/13/2023 12:19 PM EDT Narrative Resulting Agency Comment Spec In Lab Janice Villarreal MD CHEMISTRY ORDERABLES Performing Organization Address [facility]/ZIP Co de Phone Number [facility] [place] [address] * (ABNORMAL) Infliximab Level (06/13/2023 12:11 PM EDT) Infliximab Level Test ? Result ?Flag ??Unit ?RefValue ------- Infliximab QN with Reflex to Ab, S ??Infliximab, S ?36 ? H ?mcg/mL ? ---REFERENCE VALUE ?Limit of Quantitation = 1.0 mcg/mL ??Interpretation ? SEE COMMENTS ?For clinical assessment of response to therapy, infliximab ?should be measured at trough. Peak measurements are ?strongly discouraged. When infliximab trough concentrations ?are greater than 5.0 mcg/mL, clinically relevant ?[id number] fliximab are unlikely and reflex testing ?will not be performed. ? ---ADDITIONAL INFORMATION------- ?This test was developed and its performance characteristics ?determined by [facility] in a manner consistent with CLIA ?requirements. This test has not been cleared or approved by ?the U.S. Food and Drug Administration. ?Test Performed by: ?[facility] ?[address] [place] [address] ?Frit Mixer And Burner: Basil Retana M.D. Ph.D.; CLIA# [id number]) [facility] Blood 06/13/2023 12:1 1 PM EDT 06/13/2023 3:13 PM EDT Narrative Resulting Agency Comment Spec In Lab Janice Villarreal MD CHEMISTRY ORDERABLES [facility] [place] [place] [address] documented in this encounter Visit Diagnoses Diagnosis Ulcerative pancolitis with complication Urinary frequency documented in this encounter Care Teams Gas Attendant Relationship Specialty Start Date End Date Pradeep Gallardo APRN [address] [address] PCP - General 07/19/10 documented as of this encounter
--- OUTSIDE RECORDS SUMMARY | 2024-03-19 02:05 | XMS_ITS | Encounter Summary ---
Author Organization [facility] [place] [address] Care Team Providers Care Certified Adapted Physical Educator Name Role Phone Pradeep Gallardo APRN Primary Care Provider [phone] Encounter Details Date Type Department Care Team (Late st Contact Info) Description 06/21/2023 Orders [place] [phone] Janice Villarreal MD [facility] [place] [address] Ulcerative pancolitis with complication; Encounter for monitoring of infliximab therapy Social History Tobacco Use Types Packs/Day [...] 9:30 AM EDT Office [place] [phone] Janice Villarreal MD [facility] [place] [address] documented as of this encounter Visit Diagnoses Diagnosis Ulcerative pancolitis with complication Encounter for monitoring of infliximab therapy documented in this encounter Care Teams Certified Adapted Physical Educator Relationship Specialty Start Date End Date Pradeep Gallardo APRN [address] [address] PCP - General 07/19/10 documented as of this encounter
--- OUTSIDE RECORDS SUMMARY | 2024-03-19 02:05 | XMS_ITS | Encounter Summary ---
Author Organization [facility] Address [facility] [place] [address] Care Team Providers Care Fast Food Cashier Name Role Phone Pradeep Gallardo APRN Primary Care Provider [phone] Encounter Details Date Type Department Care Team (Latest Contact Info) Description 09/03/2023 Travel Social History Tobacco Use Types Packs/Day [...] 9:30 AM EDT Office [place] [address] Janice Villarreal MD [facility] [place] [address] documented as of this encounter Visit Diagnoses Not on filedocumented in this encounter Care Teams Fast Food Cashier Relationship Specialty Start Date End Date Pradeep Gallardo APRN [facility] [address] [place] [address] PCP - General 07/19/10 documented as of this encounter
--- OUTSIDE RECORDS SUMMARY | 2024-03-19 02:05 | XMS_ITS | Encounter Summary ---
Author Organization [facility] [place] [address] Care Team Providers Care Social Staff Worker Name Role Phone Paulina Pradeep PATRIC Primary Care Provider [phone] Reason for Visit * Reason Onset Date Comments Other 03/23/2023 Patient Navigati on Encounter Details Date Type Department Care Team (Late st Contact Info) Description 03/23/2023 Telephone [place] [phone] Mandi Manzanares Other (Patient Navigation/) Social History Tobacco Use Types Packs/Day Years [...] encounter Miscellaneous Notes * Telephone Encounter - Mandi Manzanares - 03/23/2023 4:24 PM EDT Called the patient after this specification writer was notified of a voicemail message left on the Clinic nurses'line regarding her [employer] disability application. The patient is followed in GI by Dr. Janice Villarreal, who is off for the summer before she transitions roles on 05/01/23. The Social Security Administration had sent two letters to the department, one in September,, requesting records, and another in December, asking that Dr. Villarreal complete a form documenting the patient's ability to work. The patient received a denial from [employer] and filed an appeal to them on February 19. They cited that Dr. Villarreal had reportedly written on her report that it was thought she would get better. The patient states that she has had colitis since she was 24 years old. It became so bad in the past 4 years that she was no longer able to work, hence her application for disability. She states she has pushed herself to work throughout her adult life beyond her body's ability. She is now on Remicade infusions,which has helped somewhat, but she thinks she will likely have to stay on it and will still not be well enough to work again. PLAN: This specification writer will pass this information along to the clinic nursing staff and for the provider(s) covering for Dr. Villarreal until May 01. The patient was asked to get in touch if she hears more from [facility] regarding any upcoming deadlines in regards to her appeal. Mandi Manzanares MA Patient Navigator Section of Gastroenterology & Hepatology documented in this encounter Plan of Treatment Upcoming Encounters Date Type Department Care Team (Late st Contact Info) Description 06/25/2024 9:30 AM EDT Office [place] [address] Janice Villarreal MD [facility] [place] [address] documented as of this encounter Visit Diagnoses Not on filedocumented in this encounter Care Teams Social Staff Worker Relationship Specialty Start Date End Date Pradeep Gallardo APRN [address] [address] PCP - General 07/19/10 documented as of this encounter
--- OUTSIDE RECORDS SUMMARY | 2024-03-19 02:05 | XMS_ITS | Encounter Summary ---
Author Organization [facility] [place] [address] Care Team Providers Care Process Design Engineer Name Role Phone Paulina Pradeep SPIVEY Primary Care Provider Reason for Visit * Reason Onset Date Comments Other 04/13/2023 Patient Navigati on Encounter Details Date Type Department Care Team (Late st Contact Info) Description 04/13/2023 Telephone [place] [phone] Mandi Manzanares Other (Patient Navigation/) Social History [...] * Telephone Encounter - Mandi Manzanares - 04/13/2023 10:58 AM EDT Left message in attempt to return patient's call. Patient was wondering about the completion of paper work for [employer] disability application. She had to appeal a denial. The patient has been followed inGI by Dr. Janice Villarreal who is out until 05/01/23. This sign writer hand found a request from [facility] dated 03/26/23 and filed in the Media tab on 03/28/23. It was a request for records and a statement from a provider that they wished to be sent by 04/10/23. PLAN: This sign writer hand let the patient know that this sign writer hand is inquiring about whether the clinicians covering for Dr. Villarreal can complete this paperwork in her absence. Will update the patient once more is known about the situation. Mandi Manzanares MA Patient Navigator Section of Gastroenterology & Hepatology documented in this encounter Plan of Treatment Upcoming Encounters Date Type Department Care Team (Late st Contact Info) Description 06/25/2024 9:30 AM EDT Office [place] [address] Janice Villarreal MD [facility] [place] [address] documented as of this encounter Visit Diagnoses Not on filedocumented in this encounter Care Teams Process Design Engineer Relationship Specialty Start Date End Date Pradeep Gallardo APRN [address] [address] PCP - General 07/19/10 documented as of this encounter
--- OUTSIDE RECORDS SUMMARY | 2024-03-19 02:05 | XMS_ITS | Encounter Summary ---
Author Organization [facility] [place] [address] Care Team Providers Care Vp Data Name Role Phone Paulina Pradeep PATRIC Primary Care Provider [phone] Encounter Details Date Type Department Care Team (Late st Contact Info) Description 06/13/2023 Telephone [place] [phone] Abby Baer RN Social History Tobacco Use [...] Telephone Encounter - Abby Baer RN - 06/18/2023 8:14 AM EDT Contacted by medical secretaryRebecca, stating that patient is on the phone. Patient was following up on phone conversation from last week, patient was not able to leave enough urine for lab sample and was asking if she could do this at her local hospital [facility] in [facility]. Asked medical secretary to make patient aware that this fiction writer will contact her once Dr. Villarreal has advised. * Telephone Encounter - Abby Baer RN - 06/13/2023 2:36 PM EDT Contacted by medical secretary, Rose, stating that the lab was on the line stating that the quantity wasn't sufficient for a urine test . This fiction writer called patient who had already left the hospital, but was aware of above information asshe was not able to produce another urine prior to leaving. Patient is asking if she would be able to bring a urine specimen to [facility] in [facility]? Made patient aware that this fiction writer will send this to Dr. Villarreal for her to review and advise. Patient verbalized understanding and will wait to hear back from our office. documented in this encounter Plan of Treatment Upcoming Encounters Date Type Department Care Team (Late st Contact Info) Description 06/25/2024 9:30 AM EDT Office [place] [address] Janice Villarreal MD [facility] [place] [address] documented as of this encounter Visit Diagnoses Diagnosis Urinary frequency documented in this encounter Care Teams Vp Data Relationship Specialty Start Date End Date Pradeep Gallardo APRN [address] [address] PCP - General 07/19/10 documented as of this encounter
--- OUTSIDE RECORDS SUMMARY | 2024-03-19 02:05 | XMS_ITS | Encounter Summary ---
[place] [address] Care Team Providers Care Hvac Design Engineer Name Role Phone Paulina Pradeep SPIVEY Primary Care Provider [phone] Reason for Visit * Reason Onset Date Comments Other 04/19/2023 Patient Navigati on Encounter Details Date Type Department Care Team (Late st Contact Info) Description 04/19/2023 Telephone [place] [phone] Mandi Manzanares Other (Patient Navigation/) Social History [...] * Telephone Encounter - Mandi Manzanares - 04/24/2023 4:55 PM EDT Spoke to patient regarding her need to have disability paperwork filled out by her GI provider, Dr.Manisha Villarreal, who is out of the office until 05/01/23. Let the patient know that this caption writer will be faxing the required documentation to the [place] Disability office, as requested, but that there is no provider available to fill out the clinical assessment requested. Will ask Dr. Villarreal to attend to this on her return. Patient was again counseled to involve her PCP, Dr. Aria Thompson, and also request records and a letter from any other specialist involved in her care. PLAN: Will fax requested documentation to [place] Disability office and will ask Dr. Villarreal for clinical assessment on her return to the office. Mandi Manzanares MA Patient Navigator Section of Gastroenterology & Hepatology documented in this encounter Plan of Treatment Upcoming Encounters Date Type Department Care Team (Late st Contact Info) Description 06/25/2024 9:30 AM EDT Office [place] [address] Janice Villarreal MD [facility] [place] [address] documented as of this encounter Visit Diagnoses Not on filedocumented in this encounter Care Teams Hvac Design Engineer Relationship Specialty Start Date End Date Pradeep Gallardo APRN [address] [address] PCP - General 07/19/10 documented as of this encounter
--- OUTSIDE RECORDS SUMMARY | 2024-03-19 02:05 | XMS_ITS | Encounter Summary ---
Author Organization [facility] [place] [address] Care Team Providers Care Airline Ticket Agent Name Role Phone Paulina Pradeep SPIVEY Primary Care Provider [phone] Encounter Details Date Type Department Care Team (Late st Contact Info) Description 09/03/2023 8:45 AM EST Office Visit Dermatology at [address] [place] [address] Gretchen Farias MD [address] [place] [address] Skin cancer screening; Lentigines; Multiple benign nevi of upper extremity, lower extremity, and trunk; Seborrheic keratoses; Brothers angioma Social History Tobacco Use Types Packs/Day Years Used Date Smoking Tobacco: Former Cigarettes Q uit: 03/23/2003 Smokeless Tobacco: Never Alcohol Use Standard Drinks/Week Comments Never 0 (1 standard drink = 0.6 oz pur e alcohol) Sex and Gender Information Value Date Recorded Sex Assigned at Not on file Gender Identity Not on file Sexual Orientation Not on file documented as of this encounter Progress Notes * Gretchen Farias MD - 09/03/2023 8:45 AM EST Images from the original note were not included. DEPARTMENT OF DERMATOLOGY Medical Dermatology Clinic Provider: Gretchen Farias MD Patient's preferred name Elsa Preferred contact method for results [x]Phone: Home & Cell []myD-H []Letter Detailed phone message OK? Yes Are there any other people with whom we may discuss your care? Bartolo Lujan Past Medical History Date, location, treatment Melanoma N Dysplastic nevi N SCC N BCC N AKs N UV Exposure & Protection N Other relevant past medical history - Mole was taken off on right leg in the early 80's Family History Details Melanoma N NMSC N Other relevant family history N Social History Occupation: Hobbies: Other: Pre-Procedure Screening Details Allergy to lidocaine, epinephrine, Dermabond, chlorhexidine, or adhesives N Bleeding disorder or blood thinners N Pacemaker, defibrillator, deep brain stimulator, cochlear implant N History of Present Illness: Elsa Lujan is a 62 y.o. Patient is new and self- referred to the clinic for a full skin exam with the following concerns: - Spot on the side of nose & back of calf. Has been monitored by PCP. Medications: Reviewed in eD-H Allergies: Reviewed in eD-H Skin Examination: Full skin examination: Patient asked to undress to their comfort level. Verbalized that the provider's preference is that patient removal all clothing and that the provider will not examine areas patient elects to keep covered. Examination of the scalp, hair, head, face, ears, neck, chest, axillae,abdomen, back, buttocks, genitalia, and upper and lower extremities. Assessment/Plan #. Seborrheic Keratoses - Stuck on, waxy papules on the trunk and extremities. - Discussed benign nature of lesions and provided reassurance. No treatment necessary at this time. #. Benign Nevi - Scattered medium brown, evenly pigmented macules and papules on the trunk and extremities with reassuring pigment pattern on dermoscopy. - Discussed benign nature of lesions and provided reassurance. Will continue to monitor. #. Lentigines - Scattered light-brown, evenly pigmented, well-demarcated macules on sun-exposed areas of the trunk and extremities. - No worrisome pigmented lesions. Discussed benign nature of lesions and provided reassurance. Willcontinue to monitor. #. Brothers Angiomas - Multiple bright red, well-demarcated papules on the trunk and extremities. - Discussed benign nature of lesions and provided reassurance. No treatment necessary at this time. Other: N/A RTC: 2 year FSE / return sooner as needed []Note routed to statistical secretary [x]Recall placed in scheduling system []Appointment scheduled at checkout Scribe attestation: Kiatlin Lassiter [facility] has performed the documentation for this encounter in thepresence of and acting as a scribe for Gretchen Farias MD. I performed the above scribed service and agree with the accuracy of the documentation in this encounter. Reviewed and signed by: Gretchen Farias MD Dermatology [facility] documented in this encounter Plan of Treatment Upcoming Encounters Date Type Department Care Team (Late st Contact Info) Description 06/25/2024 9:30 AM EDT [place] [address] Janice Villarreal MD [facility] [place] [address] documented as of this encounter Procedures Procedure Name Priority Date/Time Associated Diagnosis Comments ORDS - PROVIDER CARE SCAN 09/05/2023 12:00 AM EST documented in this encounter Results * SCAN DOC: ORDS - PROVIDER CARE (09/05/2023 12:00 AM EST) Narrative 09/05/2023 12:00 AM EST Ordered by an unspecified provider. Scanning Provider MEDIA MGR SCAN EXT O RDR/RSLT documented in this encounter Visit Diagnoses Diagnosis Skin cancer screening Screening for malignant neoplasm of the skin Lentigines Other dyschromia Multiple benign nevi of upper extremity, lower extremity, and trunk Seborrheic keratoses Brothers angioma Nevus, non-neoplastic documented in this encounter Care Teams Airline Ticket Agent Relationship Specialty Start Date End Date Pradeep Gallardo APRN [address] [address] PCP - General 07/19/10 documented as of this encounter
--- OUTSIDE RECORDS SUMMARY | 2024-03-19 02:05 | XMS_ITS | Encounter Summary ---
Author Organization [facility] Address [facility] [place] [address] Care Team Providers Care Headmaster/Mistress Name Role Phone Paulina Pradeep PATRIC Primary Care Provider [phone] Encounter Details Date Type Department Care Team (Latest Contact Info) Description 12/26/2023 1:50 PM EDT Laboratory Appointment Lab [address] [place] [id number] Transaminitis Social History Tobacco Use Types Packs/Day [...] 9:30 AM EDT Office [place] [address] Janice Villarreal MD [facility] [place] [address] documented as of this encounter Procedures Procedure Name Priority Date/Time Associated Diagnosis Comments [facility] MITOCHONDRIAL ANTIBODY Routine 12/26/2023 2:09 PM EDT Transaminitis HC PC SMOOTH MUSCLE AB SCREEN, SMAT Routine 12/26/2023 2:09 PM EDT Transaminitis BILIRUBIN, DIRECT Routine 12/26/2023 2:0 8 PM EDT HC HEPATITIS C ANTIBODY Routine 12/26/19 2:08 PM EDT Transaminitis HC IRON BINDING CAPACITY Routine 12/26/2023 2:08 PM EDT Transaminitis HC A1AT (ALPHA-1 ANTITRYPSIN) Routine 12/26/2023 2:08 PM EDT Transaminitis HC PCH MITOCHONDRIAL ANTIBODY Routine 12/26/2023 2:08 PM EDT Transaminitis HC CERULOPLASMIN Routine 12/26/2023 2:08 PM EDT Transaminitis HC PCH SMOOTH MUSCLE AB SCREEN, SMAT Routine 12/26/2023 2:08 PM EDT Transaminitis HC HIV SCREEN, 4TH GENERATION Routine 12/26/2023 2:08 PM EDT Transaminitis HC DNA AB DS (CONFEDERATED SALISH) Routine 12/26/2023 2:08 PM EDT Transaminitis HC SERUM PROT. ELECTROPHORESIS Routine 12/26/2023 2:08 PM EDT Transaminitis HC HEMOGLOBIN A1C Routine 12/26/2023 2:0 8 PM EDT Transaminitis HC IGG, SERUM Routine 12/26/2023 2:08 PM EDT Transaminitis HC FERRITIN, SERUM Routine 12/26/2023 2: 08 PM EDT Transaminitis LIPID PANEL (REFLEX DIRECT LDL) Routine 12/26/2023 2:08 PM EDT Transaminitis COMPREHENSIVE METABOLIC PANEL (NON-FASTING) Routine 12/26/2023 2:08 PM EDT Transaminitis documented in this encounter Results * Smooth Muscle Antibody (12/26/2023 2:09 PM EDT) Sm Muscle Ab Negative Negative [facility] Comment: Negative: No further testing will be performed ADDITIONAL INFORMATION This test was developed and its performance characteristics determined by [facility] in a manner consistent with CLIA requirements. This test has not been cleared or approved by the U.S. Food and Drug Administration. Test Performed by: [place] [address] Asbestos Worker Helper: Basil Retana M.D. Ph.D.; CLIA# [id number] Blood 12/26/2023 2:09 PM EDT 12/26/2023 3:55 PM EDT Narrative Resulting Agency Comment Spec In Lab Janice Villarreal MD IMMUNOLOGY ORDERABLE S Performing Organization Address City/[facility]/ZIP Co de Phone Number [facility] [place] [address] * Mitochondrial Antibody, M2 (12/26/2023 2:09 PM EDT) Mitochon Ab <0.1 <0.1 (Negative) U [facility] Comment: Test Performed by: [facility] [place] [address] Asbestos Worker Helper: Basil Retana M.D. Ph.D.; CLIA# [id number] Blood 12/26/2023 2:09 PM EDT 12/26/2023 3:55 PM EDT Narrative Resulting Agency Comment Spec In Lab Janice Villarreal MD IMMUNOLOGY ORDERABLE S Performing Organization Address City/[facility]/ZIP Co de Phone Number [facility] [place] [address] * Bilirubin, Direct (12/26/2023 2:08 PM EDT) Bili, Direct 0.1 0.0 - 0.3 mg/dL [facility] Blood 12/26/2023 2:08 PM EDT 12/26/2023 2:27 PM EDT Narrative Resulting Agency Comment Spec In Lab Janice Villarreal MD CHEMISTRY ORDERABLES [facility] [place] [address] * (ABNORMAL) Comprehensive metabolic panel (non-fasting) (12/26/2023 2:08 PM EDT) Glucose Lvl 104 65 - 199 mg/dL [facility] Comment:Diabetes: >=200 mg/d L plus symptoms BUN 11 8 - 18 mg/dL [facility] Creatinine 0.62(L) 0.70 - 1.20 mg/dL [facility] Sodium 127(L) 135 - 145 mmol/L [facility] Potassium 4.1 3.5 - 5.0 mmol/L [facility] Comment: Please note: ??Patients with WBC >100,000 may have falsely elevated Potassium levels. ??For accurate Potassium quantification in these patients send serum separator tube (gold top) for subsequent determinations. ??Contact the Clinical Chemistry Laboratory if there are any questions. Chloride 89(L) 98 - 107 mmol/L [facility] CO2 28 22 - 31 mmol/L [facility] Anion Gap 10 5 - 15 mmol/L [facility] Calcium 9.6 8.5 - 10.5 mg/dL [facility] Total Protein 7.0 6.1 - 8.0 g/dL [facility] Albumin 4.7 3.2 - 5.2 g/dL [facility] AST 39(H) 0 - 30 unit/L [facility] ALT 60(H) 0 - 30 unit/L [facility] Alk Phos 89 35 - 105 unit/L [facility] Total Bilirubin 0.3 0.2 - 1.3 mg/dL [facility] Estimated GFR 99 >=60 mL/min/1. 73 m?? [facility] Comment: This patient's estimated GFR [...] In Lab Janice Villarreal MD CHEMISTRY ORDERABLES [facility] [place] [address] * Hepatitis C Antibody (12/26/2023 2:08 PM EDT) Hepatitis C Ab Negative Negative [facility] Blood 12/26/2023 2:08 PM EDT 12/26/2023 2:27 PM EDT Narrative Resulting Agency Comment Spec In Lab Janice Villarreal MD IMMUNOLOGY ORDERABLE S [facility] [place] [address] * HIV Screen, 4th Generation (MC/CGP/APD/NLH) (12/26/2023 2:08 PM EDT) HIV-1/2 Ab and Ag Negative Negative [facility] Comment: This 4th Generation [...] HIV Comment Low Risk of HIV Infection [facility] Blood 12/26/2023 2:08 PM EDT 12/26/2023 2:27 PM EDT Narrative Resulting Agency Comment Spec In Lab Janice Villarreal MD IMMUNOLOGY ORDERABLE S [facility] [place] [address] * TORRES Antibody Screen (12/26/2023 2:08 PM EDT) Antinuclear Ab Negative Negative [facility] Comment: This antinuclear antibody [...] to dsDNA. dsDNA Ab 1.1 <=15.0 IU/mL [facility] Comment: <10 negative 10-15 [...] performed by the Special Chemistry Laboratory at [facility]. This change in testing location is associated with a change is testing method and reference intervals. Please review the results of this test in association with the posted reference intervals. Blood 12/26/2023 2:08 PM EDT 12/27/2023 7:26 AM EDT Narrative Resulting Agency Comment Spec In Lab Janice Villarreal MD IMMUNOLOGY ORDERABLE S Performing Organization Address City/[facility]/ZIP Co de Phone Number [facility] [place] [address] * Smooth Muscle Antibody (12/26/2023 2:08 PM EDT) Sm Muscle Ab Negative Negative [facility] Comment: Negative: No further testing will be performed ADDITIONAL INFORMATION This test was developed and its performance characteristics determined by [facility] in a manner consistent with CLIA requirements. This test has not been cleared or approved by the U.S. Food and Drug Administration. Test Performed by: [facility] [place] [address] Asbestos Worker Helper: Basil Retana M.D. Ph.D.; CLIA# [id number] Blood 12/26/2023 2:08 PM EDT 12/26/2023 3:55 PM EDT Narrative Resulting Agency Comment Spec In Lab Janice Villarreal MD IMMUNOLOGY ORDERABLE S Performing Organization Address [facility] Co de Phone Number [facility] [place] [address] * Mitochondrial Antibody, M2 (12/26/2023 2:08 PM EDT) Mitochon Ab <0.1 <0.1 (Negative) U [facility] Comment: Test Performed by: [facility] [employer] [facility] [place] [id number] Asbestos Worker Helper: Basil Retana M.D. Ph.D.; CLIA# [id number] Blood 12/26/2023 2:08 PM EDT 12/26/2023 3:55 PM EDT Narrative Resulting Agency Comment Spec In Lab Janice Villarreal MD IMMUNOLOGY ORDERABLE S Performing Organization Address City/[facility]/ZIP Co de Phone Number [facility] [place] [address] * IgG (12/26/2023 2:08 PM EDT) IgG 877 700 - 1,600 mg/dL [facility] Comment: Pediatric Reference Intervals obtained from the Caliper Reference Interval project. http://www.Believe.in.ca/caliperproject/index.html Blood 12/26/2023 2:08 PM EDT 12/26/2023 2:27 PM EDT Narrative Resulting Agency Comment Spec In Lab Janice Villarreal MD IMMUNOLOGY ORDERABLE S Performing Organization Address [facility] Co de Phone Number [facility] [place] [address] * Protein Electrophoresis, serum (12/26/2023 2:08 PM EDT) Total Prot Elec 6.6 6.1 - 8.0 g/dL [facility] Albumin Elect 4.65 3.20 - 5.20 g/dL [facility] Alpha1-Globul in 0.17 0.10 - 0.30 g/dL [facility] Alpha2-Globul in 0.63 0.40 - 0.90 g/dL [facility] Beta Globulin 0.53 0.50 - 1.00 g/dL [facility] Gamma Globulin 0.62 0.50 - 1.30 g/dL [facility] M1 Band None Detected None Detected [facility] Blood 12/26/2023 2:08 PM EDT 12/26/2023 2:27 PM EDT Narrative Resulting Agency Comment Spec In Lab Janice Villarreal MD CHEMISTRY ORDERABLES Performing Organization Address City/[facility]/ZIP Co de Phone Number [facility] [place] [address] * Hemoglobin A1c (12/26/2023 2:08 PM EDT) Hemoglobin A1C 5.3 4.3 - 5.6 % [facility] Comment: Reference Range: 4.3 [...] Mellitus, Diabetes Care 2013; 36: Suppl. 1, S67-05 Est Avg Gluc 106 mg/dL [facility] Blood 12/26/2023 2:08 PM EDT 12/26/2023 2:27 PM EDT Narrative Resulting Agency Comment Spec In Lab Janice Villarreal MD CHEMISTRY ORDERABLES [facility] [place] [address] * Lipid Panel (Reflex Direct LDL) (12/26/2023 2:08 PM EDT) Chol, Total 273 mg/dL [facility] Comment: Desirable: ? <200 mg/dL Borderline High: 200-239 mg/dL Higher: ?>ms=634 mg/dL Triglycerides 36 mg/dL [facility] Comment: Normal: ?<150 mg/dL Borderline High: 150-199 mg/dL High: ?200-499 mg/dL Very High: ? >an=364 mg/dL HDL 140 mg/dL [facility] Comment: Females: High Risk: <50 mg/dL Males: High Risk: <40 mg/dL LDL Cholesterol 126 mg/dL [facility] Comment: Desirable: ? <100 mg/dL Above Desirable: 100-129 mg/dL Borderline High: 130-159 mg/dL High: ?160-189 mg/dL Very High: ? >ir=167 mg/dL Lipid Interpretation See Note [facility] Comment: It is important [...] ACC/AHA Guidelines (most recently Jenni et al. [facility] 05/30/22): For individuals with atherosclerotic cardiovascular disease (ASCVD)or LDL >gn=363 mg/dL, use a high-intensity statin (40-80 mg [...] Villarreal MD CHEMISTRY ORDERABLES Performing Organization Address [facility] Co de Phone Number [facility] [place] [address] * Iron and TIBC (12/26/2023 2:08 PM EDT) Iron 94 30 - 150 mcg/dL [facility] TIBC 298 250 - 450 mcg/dL [facility] Iron Saturation 32 20 - 50 % [facility] Blood 12/26/2023 2:08 PM EDT 12/26/2023 2:27 PM EDT Narrative Resulting Agency Comment Spec In Lab Janice Villarreal MD CHEMISTRY ORDERABLES Performing Organization Address [facility] Co de Phone Number [facility] [place] [address] * Ferritin (12/26/2023 2:08 PM EDT) Ferritin 55 11 - 328 ng/mL [facility] Comment: Please note that as of 08/01/2023, the reference intervals for Ferritin have been updated. Blood 12/26/2023 2:08 PM EDT 12/26/2023 2:27 PM EDT Narrative Resulting Agency Comment Spec In Lab Janice Villarreal MD CHEMISTRY ORDERABLES Performing Organization Address City/[facility]/ZIP Co de Phone Number [facility] [place] [address] * A1AT Serum Concentration (12/26/2023 2:08 PM EDT) A1AT 155 90 - 200 mg/dL [facility] Blood 12/26/2023 2:08 PM EDT 12/26/2023 2:27 PM EDT Narrative Resulting Agency Comment Spec In Lab Janice Villarreal MD CHEMISTRY ORDERABLES Performing Organization Address City/[facility]/ZIP Co de Phone Number [facility] [place] [address] * Ceruloplasmin (12/26/2023 2:08 PM EDT) Ceruloplasmin 29.6 16.0 - 45.0 mg/dL [facility] Blood 12/26/2023 2:08 PM EDT 12/26/2023 2:27 PM EDT Narrative Resulting Agency Comment Spec In Lab Janice Villarreal MD CHEMISTRY ORDERABLES Performing Organization Address [facility] Co de Phone Number [facility] [place] [address] documented in this encounter Visit Diagnoses Diagnosis Transaminitis Nonspecific elevation of levels of transaminase or lactic acid dehydrogenase (LDH) documented in this encounter Care Teams Headmaster/Mistress Relationship Specialty Start Date End Date Pradeep Gallardo APRN [address] [address] PCP - General 07/19/10 documented as of this encounter
--- OUTSIDE RECORDS SUMMARY | 2024-03-19 02:05 | XMS_ITS | Encounter Summary ---
Author Organization [facility] Address [facility] [place] [address] Care Team Providers Care Residential Specialist Name Role Phone Paulina Pradeep PATRIC Primary Care Provider [phone] Encounter Details Date Type Department Care Team (Late st Contact Info) Description 07/30/2023 Telephone [place] [phone] Janice Villarreal MD [facility] [place] [address] Social History Tobacco Use Types Packs/Day Years [...] Telephone Encounter - Janice Villarreal MD - 07/30/2023 11:34 AM EST Called Elsa to review infliximab trough of 13. Plan to continue dosing 10mg/kg q8w. Also reviewed newly elevated LFTs, hepatocellular pattern. I did discuss possibility of DILI from Remicade. Plan for monthly monitoring, and if still elevated can pursue broader w/up, would then consider titrating down to 5mg/kg vs. Switching to another biologic. Janice Villarreal MD Gastroenterology and Hepatology 07/30/2023 11:36 AM Pager # [phone] documented in this encounter Plan of Treatment Upcoming Encounters Date Type Department Care Team (Late st Contact Info) Description 06/25/2024 9:30 AM EDT Office [place] [address] Janice Villarreal MD [facility] [place] [address] Scheduled Orders Name Type Priority Associated Diagnoses Orde r Schedule Hepatic Function Panel Lab Routine Transaminitis Every 4 Weeks for 4 Occurrences starting 07/30/2023 until 07/30/2024 documented as of this encounter Visit Diagnoses Diagnosis Transaminitis Nonspecific elevation of levels of transaminase or lactic acid dehydrogenase (LDH) documented in this encounter Care Teams Residential Specialist Relationship Specialty Start Date End Date Pradeep Gallardo APRN [address] [address] PCP - General 07/19/10 documented as of this encounter
--- OUTSIDE RECORDS SUMMARY | 2024-03-19 02:05 | XMS_ITS | Encounter Summary ---
Author Organization [facility] Address [facility] [place] [address] Care Team Providers Care Oliving Machine Operator Name Role Phone Pradeep Gallardo APRN Primary Care Provider [phone] Encounter Details Date Type Department Care Team (Late st Contact Info) Description 09/05/2023 Notes Only [place] [address] Jeanette Franco RN Social History [...] as of this encounter Progress Notes * Jeanette Franco RN - 09/05/2023 10:57 AM EST Orders for Remicade faxed to [facility] for 5mg/kg every 8 weeks. Decreased from 10mg/kg due to elevated LFT's and Elsa's preference. documented in this encounter Plan of Treatment Upcoming Encounters Date Type Department Care Team (Late st Contact Info) Description 06/25/2024 9:30 AM EDT Office Visit [place] [phone] Janice Villarreal MD [facility] [place] [address] documented as of this encounter Visit Diagnoses Not on filedocumented in this encounter Care Teams Oliving Machine Operator Relationship Specialty Start Date End Date Pradeep Gallardo APRN [address] [place] [address] PCP - General 07/19/10 documented as of this encounter
--- OUTSIDE RECORDS SUMMARY | 2024-03-19 02:05 | XMS_ITS | Encounter Summary ---
Author Organization [facility] Address [facility] [place] [address] Care Team Providers Care Care Taker Name Role Phone Pradeep Gallardo APRN Primary Care Provider Encounter Details Date Type Department Care Team (Latest Contact Info) Description 06/13/2023 Travel Social History Tobacco Use Types Packs/Day [...] 9:30 AM EDT Office [place] [address] [facility] [place] [address] documented as of this encounter Visit Diagnoses Not on filedocumented in this encounter Care Teams Care Taker Relationship Specialty Start Date End Date Pradeep Gallardo APRN [facility] [address] [place] [address] PCP - General 07/19/10 documented as of this encounter
--- OUTSIDE RECORDS SUMMARY | 2024-03-19 02:05 | XMS_ITS | Encounter Summary ---
Author Organization [facility] [place] [address] Care Team Providers Care Retail Representative Name Role Phone Paulina Pradeep PATRIC Primary Care Provider [phone] Encounter Details Date Type Department Care Team (Late st Contact Info) Description 01/04/2023 11:00 AM EDT [place] [address] Bijan Villarreal MD [facility] [place] [address] Ulcerative pancolitis without complication Social History Tobacco [...] Sign Reading Time Taken Comments Blood Pressure 151/65 01/04/2023 10:43 AM EDT Pulse 58 01/04/2023 10:43 AM EDT Temperature - - Respiratory Rate - - Oxygen Saturation 99% 01/04/2023 10:43 AM EDT Inhaled Oxygen Concentration - - Weight 63.5 kg (140 lb) 01/04/2023 10:43 AM EDT Height 158.8 cm (5' 2.5) 01/04/2023 10:43 AM ED T Body Mass Index 25.2 01/04/2023 10:43 AM EDT documented in this encounter Progress Notes * Bijan Villarreal - 01/04/2023 11:00 AM EDT Images from the original note were not included. [facility] Division of Gastroenterology and Hepatology History of Present Illness: Elsa Lujan??62F w/ PMH of??extensive colitis??c/b hospitalization 07/2022 following up in GI clinic. Interval Events: -Just came back from [place] to see son. Had a lot of fun. Plans to go to [place] this fall, otherwise mostly around this summer. Will be receiving an award from her former work place in January, but decided to go to [facility] [employer] to learn about [employer] so will have friend receive for her. -11/2022 Hb 9.9, CRP 4.8 -Infliximab trough after load 10 - continues outpatient Remicade q8w, last infusion end of October. Due 01/18/23 - now off prednisone - 2 BM a day, but starts to feel slightly looser BM closer to next infusion date. No blood or mucous in stool. No abdominal pain/distention. No N/V. -Eating three meals, focusing on healthy fruit, vegetables. Gained back 4 years. -energy level is still not at its baseline but slow improvements GI History: Patient transferred care from [place] (history below). Well-controlled ulcerative colitis until April [...] Sulfa (Sulfonamide Antibiotics) Hives Physical Examination: BP 151/65 (BP Location (NBP): Right arm, Patient Position: Sitting, BP Cuff Sizes: Adult (25-34 cm)) Pulse 58 Ht 158.8 cm (5' 2.5) Wt 63.5 kg (140 lb) SpO2 99% BMI 25.20 kg/m?? General: Pleasant, cooperative, no acute distress [...] nor perforation. ? ASSESSMENT & PLAN: Elsa Lujan??62F w/ PMH of??panulcerative colitis??c/b hospitalization 07/2022 present to GI clinic to establish care. Elsa has significantly improved since her hospitalization and will plan to continue Remicade at 10mg/kg q8w. We again reviewed Remicade's role in long-term management as Elsa was worried about life long medication. I did education counselor that I would recommend continuing this medication for as long as it appears to be treating her UC given how sick she was at her hospitalization, and was at risk for acolectomy, but that we can review this again after her disease staging colonoscopy this fall. Reviewed maintenance care today, will need skin check while on anti-TNF and reviewed vaccines she is due for. Unsure if she had varicella, will check serologies today. All questions answered today. ?? Recommendations: - s/p Remicade 10mg/kg loading x2 (08/11/22, 08/25/22) - s/p 14 days hydrocortisone proctofoam therapy - continue outpatient Remicade 10mg/kg q8w - disease staging colonoscopy due this fall 2022, order today - Vitamin D supplement; check level - CBC, BMP, CRP - Varicella IgG - HBV immune; Quant gold negative - avoid opiates and NSAIDs - one iron tablet EOD with Vitamin C - Dermatology referral for annual skin exam - DEXA due, f/up with PCP IBD Health Maintenance (updated periodically) (1) Colonoscopy [...] 43yo): N/A -Varicella exposure previously or vaccine: unsure if exposure in childhood -MMR vaccine history: UTD [...] Villarreal MD Fellow in Gastroenterology [place] [address] P: [phone] F: [phone] CC Aria Thompson MD [address] [place] [id number] * Hermila East MD - 01/04/2023 11:00 AM EDT ATTENDING ATTESTATION: I have discussed the patient with the GI fellow, Dr. Villarreal and I agree with the fellow's findings, assessment, and plan as written. Hermila East MD Gastroenterology attending Pager [phone] documented in this encounter Miscellaneous Notes * Addendum Note - Bijan Villarreal - 01/04/2023 11:00 AM EDTAddended by: BIJAN VILLARREAL on: 01/04/2023 12:26 PM Modules accepted: Orders documented in this encounter Plan of Treatment Upcoming Encounters Date Type Department Care Team (Late st Contact Info) Description 06/25/2024 9:30 AM EDT [place] [address] Bijan Villarreal MD [facility] [place] [address] Scheduled Orders Name Type Priority Associated Diagnoses Orde r Schedule ENDOSCOPY CASE REQUEST: COLONOSCOPY, DIAGNOSTIC (WRVU 3.26) Procedures Routine Ulcerative pancolitis without complication Ordered: 01/04/2023 documented as of this encounter Procedures Procedure Name Priority Date/Time Associated Diagnosis Comments HC C-REACTIVE PROTEIN Routine 01/04/2023 11:45 AM EDT Ulcerative pancolitis without complication HEMOGRAM Routine 01/04/2023 11:45 AM EDT Ulcerative pancolitis without complication DIFFERENTIAL, AUTOMATED Routine 01/04/2023 11:45 AM EDT Ulcerative pancolitis without complication HC VITAMIN D TOTAL-25 HYDROXY Routine 01/04/2023 11:45 AM EDT Ulcerative pancolitis without complication HC CBC,PLT & AUTO DIFF Routine 01/04/2023 11:45 AM EDT Ulcerative pancolitis without complication HC VARICELLA ZOSTER ANTIBODY Routine 01/04/2023 11:45 AM EDT Ulcerative pancolitis without complication HC FOLATE, SERUM Routine 01/04/2023 11:4 5 AM EDT Ulcerative pancolitis without complication HC VITAMIN B12 SERUM Routine 01/04/2023 11:45 AM EDT Ulcerative pancolitis without complication BASIC METABOLIC PANEL (NON-FASTING) Routine 01/04/2023 11:45 AM EDT Ulcerative pancolitis without complication documented in this encounter Results * (ABNORMAL) Differential, Automated (01/04/2023 11:45 AM EDT) Neutrophils % 30.4 % [facility] Neutr Abs (ANC) 1.24(L) 1.70 - 6.10 x10(3)/mc L [facility] Lymphocytes % 53.7 % [facility] Lymphocytes Abs 2.2 0.9 - 3.2 x10(3)/mc L [facility] Monocytes % 11.5 % [facility] Monocyte Abs 0.5 0.3 - 0.9 x10(3)/mc L [facility] Eosinophils % 2.9 % [facility] Eosinophils Abs 0.1 0.0 - 0.4 x10(3)/mc L [facility] Basophils % 1.5 % [facility] Basophils Abs 0.1 0.0 - 0.1 x10(3)/mc L [facility] Immature Gran % 0.00 % [facility] Comment: Immature granulocytes(IG's)percentage and absolute count will include metamyelocytes, myelocytes, and promyelocytes. Blood smears from CBCs yielding IG's will be scanned manually for concordance. If this scan disagrees with the automated IG or if promyelocytes are noted, a manual differential will be performed. Polina Gran Abs 0.00 0.00 - 0.04 x10(3)/mc L [facility] Blood 01/04/2023 11:4 5 AM EDT 01/04/2023 12:07 PM EDT Narrative Resulting Agency Comment Spec In Lab Bijan Villarreal MD HEMATOLOGY ORDERABLE S [facility] [place] [address] * (ABNORMAL) Hemogram (01/04/2023 11:45 AM EDT) WBC 4.1 4.0 - 9.5 x10(3)/[facility] RBC 3.96(L) 4.00 - 5.21 x10(6)/[facility] Hemoglobin 10.3(L) 11.7 - 15.5 g/dL [facility] Hematocrit 31.0(L) 35.7 - 45.8 % [facility] MCV 78.3(L) 82.6 - 94.4 fL [facility] MCH 26.0(L) 27.1 - 32.0 pg [facility] MCHC 33.2 31.7 - 35.0 g/dL [facility] Platelets 389(H) 145 - 357 x10(3)/[facility] RDWSD 55.2(H) 37.0 - 46.0 [facility] RDWCV 19.2(H) 11.5 - 14.1 % [facility] MPV 9.3 7.6 - 12.9 fL [facility] nRBC % Auto 0.0 % [facility] nRBC Abs Auto 0.000 0.000 - 0.000 x10(3)/[facility] Blood 01/04/2023 11:4 5 AM EDT 01/04/2023 12:07 PM EDT Narrative Resulting Agency Comment Spec In Lab Bijan Villarreal MD HEMATOLOGY ORDERABLE S Performing Organization Address City/[facility]/ZIP Co de Phone Number [facility] [place] [address] * Folate, serum (01/04/2023 11:45 AM EDT) Folate Lvl >20.0 4.8 - 24.2 ng/mL [facility] Blood 01/04/2023 11:4 5 AM EDT 01/04/2023 12:07 PM EDT Narrative Resulting Agency Comment Spec In Lab Hermila East MD CHEMISTRY ORDERAB LES Performing Organization Address [facility] Co de Phone Number [facility] [place] [address] * (ABNORMAL) Vitamin B12 (01/04/2023 11:45 AM EDT) Vitamin B-12 >2,000(H) 232 - 1,245 pg/mL [facility] Blood 01/04/2023 11:4 5 AM EDT 01/04/2023 12:07 PM EDT Narrative Resulting Agency Comment Spec In Lab Hermila East MD CHEMISTRY ORDERAB LES Performing Organization Address City/[facility] Co de Phone Number [facility] [place] [address] * Vitamin D, 25-Hydroxy (01/04/2023 11:45 AM EDT) 25-OH Vit D Total 65 21 - 100 ng/mL [facility] 25-OH Vit D Interp Sufficient [facility] Blood 01/04/2023 11:4 5 AM EDT 01/04/2023 12:07 PM EDT Narrative Resulting Agency Comment Spec In Lab Hermila East MD CHEMISTRY ORDERAB LES [facility] [place] [address] * CRP, acute inflammation (01/04/2023 11:45 AM EDT) CRP <3.0 <=4.9 mg/L [facility] Blood 01/04/2023 11:4 5 AM EDT 01/04/2023 12:07 PM EDT Narrative Resulting Agency Comment Spec In Lab Hermila East MD CHEMISTRY ORDERAB LES Performing Organization Address City/[facility]/ZIP Co de Phone Number [facility] [place] [address] * (ABNORMAL) Basic Metabolic Panel (non-fasting) (01/04/2023 11:45 AM EDT) Pathologist [facility] Glucose Lvl 95 65 - 199 mg/dL [facility] Comment:Diabetes: >=200 mg/d L plus symptoms BUN 13 8 - 18 mg/dL [facility] Creatinine 0.61(L) 0.70 - 1.20 mg/dL [facility] Sodium 130(L) 135 - 145 mmol/L [facility] Potassium 4.3 3.5 - 5.0 mmol/L [facility] Comment: Please note: ??Patients with WBC >100,000 may have falsely elevated Potassium levels. ??For accurate Potassium quantification in these patients send serum separator tube (gold top) for subsequent determinations. ??Contact the Clinical Chemistry Laboratory if there are any questions. Chloride 96(L) 98 - 107 mmol/L [facility] CO2 27 22 - 31 mmol/L [facility] Anion Gap 7 5 - 15 mmol/L [facility] Calcium 9.0 8.5 - 10.5 mg/dL [facility] Estimated GFR 100 >=60 mL/min/1. 73 m?? [facility] Comment: This patient's estimated [...] and symptoms in addition to eGFR. Blood 01/04/2023 11:4 5 AM EDT 01/04/2023 12:07 PM EDT Narrative Resulting Agency Comment Spec In Lab Hermila East MD CHEMISTRY ORDERAB LES Performing Organization Address City/[facility]/ZIP Co de Phone Number [facility] [place] [address] * Varicella zoster Antibody, IgG (01/04/2023 11:45 AM EDT) Varicella IgG Positive Positive [facility] Comment: A positive result for this assay is considered to be an indicator of positive immune status. Blood 01/04/2023 11:4 5 AM EDT 01/04/2023 12:53 PM EDT Narrative Resulting Agency Comment Spec In Lab Hermila East MD IMMUNOLOGY ORDERA BLES Performing Organization Address City/[facility]/ZIP Co de Phone Number [facility] [place] [address] documented in this encounter Visit Diagnoses Diagnosis Ulcerative pancolitis without complication documented in this encounter Care Teams Retail Representative Relationship Specialty Start Date End Date Pradeep Gallardo APRN [facility] [address] [place] [address] PCP - General 07/19/10 documented as of this encounter
--- OUTSIDE RECORDS SUMMARY | 2024-03-19 02:05 | XMS_ITS | Encounter Summary ---
Author Organization [facility] [place] [address] Care Team Providers Care Engine Head Repairer Name Role Phone Pradeep Gallardo PATRIC Primary Care Provider [phone] Encounter Details Date Type Department Care Team (Late Contact Info) Description 04/25/2023 Telephone [place] [address] Shayla Sierra RN Social History Tobacco Use Types Packs/Day [...] encounter Miscellaneous Notes * Telephone Encounter - Shayla Sierra RN - 04/25/2023 3:08 PM EDT Call placed to Elsa in response to a VM re: her remicade dose. No answer, message left documented in this encounter Plan of Treatment Upcoming Encounters Date Type Department Care Team (Late st Contact Info) Description 06/25/2024 9:30 AM EDT Office [place] [address] Janice Villarreal MD [facility] [place] [address] documented as of this encounter Visit Diagnoses Not on filedocumented in this encounter Care Teams Engine Head Repairer Relationship Specialty Start Date End Date Pradeep Gallardo APRN [address] [address] PCP - General 07/19/10 documented as of this encounter
--- OUTSIDE RECORDS SUMMARY | 2024-03-19 02:05 | XMS_ITS | Encounter Summary ---
Author Organization [facility] [place] [address] Care Team Providers Care Cloud Solutions Architect Name Role Phone Paulina Pradeep PATRIC Primary Care Provider [phone] Encounter Details Date Type Department Care Team (Late Contact Info) Description 07/13/2023 Telephone [place] [address] Jeanette Franco RN Social History Tobacco Use [...] Telephone Encounter - Jeanette Franco RN - 07/13/2023 8:16 AM EST Received call from [facility] infusion, Elsa is due this morning for her infusion. She went to the lab 4days before infusion and had her ifx level drawn. Infusion asking if that is OK and if they should redraw before todays infusion. Let them know up to 7 days before an infusion is an appropriate time frame for a level check. Ok toproceed with todays infusion. documented in this encounter Plan of Treatment Upcoming Encounters Date Type Department Care Team (Late st Contact Info) Description 06/25/2024 9:30 AM EDT Office [place] [address] Janice Villarreal MD [facility] [place] [address] documented as of this encounter Visit Diagnoses Not on filedocumented in this encounter Care Teams Cloud Solutions Architect Relationship Specialty Start Date End Date Pradeep Gallardo APRN [address] [address] PCP - General 07/19/10 documented as of this encounter
--- OUTSIDE RECORDS SUMMARY | 2024-03-19 02:05 | XMS_ITS | Encounter Summary ---
[place] [address] Care Team Providers Care Para Machine Operator Name Role Phone Paulina Pradeep PATRIC Primary Care Provider [phone] Encounter Details Date Type Department Care Team (Late st Contact Info) Description 06/21/2023 Telephone [place] [address] Jay Tom RN Social History [...] Telephone Encounter - Jay Tom RN - 06/21/2023 9:29 AM EDT Called [facility] to verify dates of last infusions Patient received Remicade on 03/15/23 and 05/10/23 Next infusion scheduled for 07/05/23 This means IFX level drawn 06/13/23 was done 5 [address] infusion[address] Dr. Villarreal informed documented in this encounter Plan of Treatment Upcoming Encounters Date Type Department Care Team (Late st Contact Info) Description 06/25/2024 9:30 AM EDT Office [place] [address] Janice Villarreal MD [facility] [place] [address] documented as of this encounter Visit Diagnoses Not on filedocumented in this encounter Care Teams Para Machine Operator Relationship Specialty Start Date End Date Pradeep Gallardo APRN [address] [place] [address] PCP - General 07/19/10 documented as of this encounter
--- OUTSIDE RECORDS SUMMARY | 2024-03-19 02:05 | XMS_ITS | Encounter Summary ---
Author Organization [facility] [place] [address] Care Team Providers Care Certified Dietary Manager Name Role Phone PaulinaPradeep PATRIC Primary Care Provider Reason for Visit * Auth/Cert (Routine) Specialty Diagnoses / Procedures Referred By Contchung t Referred To Contact Diagnoses Ulcerative (chronic) pancolitis without complications extensive UC Procedures PRO COLONOSCOPY, DIAGNOSTIC PRO COLONOSCOPY, REMV LESN, SNARE PRO COLONOSCOPY, BIOPSY PRO COLONOSCOPY, REMV LESN, SNARE PRO COLONOSCOPY, BIOPSY COLONOSCOPY, DIAGNOSTIC (WRVU 3.26) James Bobo MD [facility] [place] [address] [facility] Referral ID Status Reason Start Date Expiration Date Visits Re quested Visits Authorized [id number] 1 1 Encounter Details Date Type Department Care Team (Late st Contact Info) Description 10/09/2023 11:00 AM EST - 10/09/2023 12:00 PM EST Surgery [place] [address] James Bobo MD [facility] [place] [address] COLONOSCOPY FLEXIBLE, WITH BX (WRVU 3.56) Social History Tobacco Use Types Packs/Day Years [...] occurs, please contact your Doctor. Please call [phone] before 8pm Mon-Fri with problems, questions or concerns. If you call after 8pm or on weekends, call the Hospital at [phone] and ask to speak to the [employer] correctional security officer and the game operator will contact that person for you. When should you call for help? Call 247 anytime you think you may need emergency [...] any problems. Where can you learn more? myD-H View your After Visit Summary and more online at [email or web address] If you would like to provide feedback [...] cost to you. Content Version: 12.2 ?? [id number] [employer]. Care instructions adapted under license by [facility]. If you have questions about a medical condition or this instruction, always ask your healthcare professional. [employer] disclaims any warranty or liability for your [...] 9:30 AM EDT Office [place] [phone] Janice Villarreal MD [facility] [place] [address] documented as of this encounter Procedures Procedure Name Priority Date/Time Associated Diagnosis Comments SPECIMEN TO PATHOLOGY Routine 10/09/2023 11:06 AM EST SURGICAL PATHOLOGY REPORT Routine 10/09/2023 11:00 AM EST Colonoscopy, Biopsy ([id number]) 10/09/2023 10:42 AM EST Ulcerative pancolitis without complication COLONOSCOPY Routine 10/09/2023 9:59 AM EST documented in this encounter Results * Specimen to Pathology (10/09/2023 11:06 AM EST) AP Specimen 10/09/2023 11:0 6 AM EST 10/09/2023 11:[address] [facility] - 10/09/2023 11:06 AM EST Specimen requisition ordered. ??Separate Pathology report to follow James Bobo MD PATHOLOGY/CYTOLOGY O RDERABLES [facility] [place] [address] * Surgical Pathology Report (10/09/2023 11:00 AM EST) FINAL DIAGNOSIS (AP) [id number] ? Location: 4T; EA09; A The signing pathologist has (i) examined the relevant preparation(s) for the specimen(s) and (ii) rendered or confirmed the diagnosis(es). . ?Surgical Pathology DIAGNOSIS A - Random colon r/o dysplasia, biopsy: - ??Colonic mucosa with mild architectural disarray, negative for dysplasia. CR-PX Electronically signed by: ?[place] VENTURA, Escobar Verified: ??10/17/2023 15:49 ??Pathologist Performed at: ??-[facility] Dept. of Pathology, [place] [address] Corporate Director Of Pharmacy: Bird Jarvis MD, FCAP, ??CLIA Certificate: [id number] SPECIMEN(S) SUBMITTED A - random colon r/o dysplasia, biopsy (1) CLINICAL INFORMATION 62-year-old female with history of colitis, normal-appearing colon SPECIMEN PROCESSING A - Labeled/Fixative: Random colon rule out dysplasia, formalin. Quantity/Size: Multiple, averaging 0.3 cm. Tissue Description: Soft, pink tissues. Sections/Processi ng: Submitted in toto ??in 3 cassettes labeled A1-A3. ??sns 10/17/2023 3:[address] [facility] 10/09/2023 11:0 0 AM EST James Bobo MD PATHOLOGY/CYTOLOGY O RDERABLES [facility] [place] [address] * COLONOSCOPY (10/09/2023 9:59 AM EST) COLONOSCOPY [facility] Endoscopy Procedure Date: 10/09/2023 9:59 AM ? Patient Name: Elsa Lujan ? Date of : 1960 ? Age: 62 ? Order #: [id number] ? Instrument Name: [id number] ? Procedure: ? Colonoscopy Indications: ? Pt with UC, Asx now on IFX Providers: ? James Bobo MD, Tiffanie Richardson ? Skarsten, Nils Confalone Referring MD: ?Aria Thompson MD Medicines: ? Midazolam [...] preparation was evaluated ? using the BBPS (Negley Bowel ? Preparation Scale) with scores of: [...] PROVATION documented in this encounter Visit Diagnoses Diagnosis Ulcerative pancolitis without complication documented in this encounter Administered Medications Inactive Administered Medications - up to 3 most recent administrations Medication Order MAR Action Action Date Dose Rate Site fentaNYL (pf) (50 mcg/mL) multi-dose injection PRN, Starting on Sun10/09/23 at 1048, Until Sun10/09/23 at 1413, Intra-Operative (Intra-Procedure), Routine Given 10/09/2023 10:54 AM EST 50 mcg Given 10/09/2023 10:51 AM EST 50 mcg Given 10/09/2023 10:48 AM EST 50 mcg midazolam (pf) (Versed) (1 mg/mL) multi-dose injection PRN, Starting on Sun10/09/23 at 1048, Until Sun10/09/23 at 1413, Intra-Operative (Intra-Procedure), Routine Given 10/09/2023 10:58 AM EST 1 mg Given 10/09/2023 10:54 AM EST 1 mg Given 10/09/2023 10:51 AM EST 1 mg documented in this encounter Active and Recently Administered Medications Times are shown in EST. PRN Medication Order 10/07/2023 10/08/2023 10/09/2023 fentaNYL (pf) (50 mcg/mL) multi-dose injection (CANCELED) PRN, Starting on Sun10/09/23 at 1048, Until Sun10/09/23 at 1413, Intra-Operative (Intra-Procedure), Routine 1048 (Given - Provid er: Tiffanie Millan RN)1051 (Given - Provider: Tiffanie Millan RN)1054 (Given - Provider: Tiffanie Millan RN) midazolam (pf) (Versed) (1 mg/mL) multi-dose injection (CANCELED) PRN, Starting on Sun10/09/23 at 1048, Until Sun10/09/23 at 1413, Intra-Operative (Intra-Procedure), Routine 1048 (Given - Provid er: Tiffanie Millan RN)1051 (Given - Provider: Tiffanie Millan RN)1054 (Given - Provider: Tiffanie Millan RN)1058 (Given - Provider: Tiffanie Millan RN) documented in this encounter Care Teams Certified Dietary Manager Relationship Specialty Start Date End Date Pradeep Gallardo APRN [address] [address] PCP - General 07/19/10 documented as of this encounter
--- OUTSIDE RECORDS SUMMARY | 2024-03-19 02:05 | XMS_ITS | Encounter Summary ---
[place] [address] Care Team Providers Care Tools Programmer Name Role Phone PaulinaPradeep PATRIC Primary Care Provider [phone] Encounter Details Date Type Department Care Team (Late st Contact Info) Description 03/16/2023 Telephone [place] [address] Jenise Mooney Social History Tobacco Use Types [...] * Telephone Encounter - Jenise Mooney - 03/16/2023 2:53 PM EDT Patient of Dr. Janice Villarreal'serina called and left a voice message on the Gastro 4L Exit line. She stated that she has applied for Social Security Disability and needs something changed. Patient asked that someone please give her a call back (on her cell or home number) and she would be happy to explain what she needs. documented in this encounter Plan of Treatment Upcoming Encounters Date Type Department Care Team (Late st Contact Info) Description 06/25/2024 9:30 AM EDT Office [place] [address] Janice Villarreal MD [facility] [place] [address] documented as of this encounter Visit Diagnoses Not on filedocumented in this encounter Care Teams Tools Programmer Relationship Specialty Start Date End Date Pradeep Gallardo APRN [address] [address] PCP - General 07/19/10 documented as of this encounter
--- OUTSIDE RECORDS SUMMARY | 2024-03-19 02:05 | XMS_ITS | Encounter Summary ---
Author Organization [facility] Address [facility] [place] [address] Care Team Providers Care Rouge Presser Name Role Phone Pradeep Gallardo APRN Primary Care Provider [phone] Encounter Details Date Type Department Care Team (Late st Contact Info) Description 05/02/2023 Telephone [place] [phone] Janice Villarreal MD [facility] [place] [address] Social History Tobacco Use Types Packs/Day Years [...] Telephone Encounter - Janice Villarreal MD - 05/02/2023 2:41 PM EDT I called Elsa to review her current symptoms since her last Remicade infusion. Over the summer, she reports feeling more tired and fatigued from baseline, and she has had intermittent cramping that feel similar to her pains prior to her UC diagnosis, although not as severe. BM are variable, and can be constipated at times, no nocturnal frequency. No blood in stool. We discussed the request relayed to me re: paperwork for [employer] disability application. I will order some basic labs and infliximab trough (next infusion next week) and will wait for these to return to help understand if her disease is in remission before drafting my letter, which Elsa agrees with. A staging colonoscopy is due this fall which is not yet scheduled. Plan to see in clinic 05/2023. Janice Villarreal MD Gastroenterology and Hepatology 05/02/2023 2:43 PM Pager # [phone] documented in this encounter Plan of Treatment Upcoming Encounters Date Type Department Care Team (Late st Contact Info) Description 06/25/2024 9:30 AM EDT Office Visit [place] [phone] Janice Villarreal MD [facility] [place] [address] documented as of this encounter Results * (ABNORMAL) Infliximab Level (06/13/2023 12:11 PM [...] ?are greater than 5.0 mcg/mL, clinically relevant ?mowbgdytjv-ez-eo fliximab are unlikely and reflex testing ?will not be performed. ? ---ADDITIONAL INFORMATION------- ?This test was developed and its performance characteristics ?determined by [facility] in a manner consistent with CLIA ?requirements. This test has not been cleared or approved by ?the U.S. Food and Drug Administration. ?Test Performed by: ?[facility] ?[address] [place] [address] ?Compressor Mechanic Bus: Basil Retana M.D. Ph.D.; CLIA# [id number]) [facility] Blood 06/13/2023 12:1 1 PM EDT 06/13/2023 3:13 PM EDT Narrative Resulting Agency Comment Spec In Lab Janice Villarreal MD CHEMISTRY ORDERABLES [facility] [place] [address] documented in this encounter Visit Diagnoses Diagnosis Ulcerative pancolitis with complication documented in this encounter Care Teams Rouge Presser Relationship Specialty Start Date End Date Pradeep Gallardo APRN [address] [address] PCP - General 07/19/10 documented as of this encounter
--- OUTSIDE RECORDS SUMMARY | 2024-03-19 02:06 | XMS_ITS | Encounter Summary ---
Author Organization [facility] Address [facility] [place] [address] Care Team Providers Care Clinical Molecular Geneticist Name Role Phone Pradeep Gallardo APRN Primary Care Provider [phone] Reason for Visit * Consultation (Routine) - Closed Specialty Diagnoses / Procedures Referred By Merari rosario Referred To Contact Endocrinology Diagnoses Multinodular goiter SECOND OPINION FOR MULTINODULAR GOITER- NOW WITH ARGER LEFT LOBE NODULE Procedures CONSULT AND TREAT Aria Thompson MD [address] [place] [address] [facility] Endocrinology [address] [place] [phone] Referral ID Status Reason Start Date Expiration Date Visits Re quested Visits Authorized [id number] Closed 02/05/2017 02/05/2018 1 1 Encounter Details Date Type Department Care Team (Late st Contact Info) Description 03/23/2017 10:00 AM EDT Office [place] [address] Katie Almanza MD [facility] [place] [address] Multinodular goiter Social History Tobacco Use Types Packs/Day Years Used Date Smoking Tobacco: Former Cigarettes Q uit: 03/23/2003 Sex and Gender Information Value Date Recorded Sex Assigned at Not on file Gender Identity Not on file Sexual Orientation Not on file documented as of this encounter Last Filed Vital Signs Vital Sign Reading Time Taken Comments Blood Pressure 137/80 03/23/2017 10:04 AM EDT Pulse 63 03/23/2017 10:04 AM EDT Temperature - - Respiratory Rate - - Oxygen Saturation - - Inhaled Oxygen Concentration - - Weight 63.5 kg (140 lb) 03/23/2017 10:04 AM EDT pt stated Height 160 cm (5' 3) 03/23/2017 10:04 AM EDT Body Mass Index 24.8 03/23/2017 10:04 AM EDT documented in this encounter Progress Notes * Katie Almanza MD - 03/23/2017 10:00 AM EDT Endocrinology New Patient Consultation RFC: Referred to Endocrinology by self for second opinion on management of multiple thyroid nodules. HISTORY OF PRESENT ILLNESS: Ms. Elsa Lujan is a 56 y.o. year old lady with history significant for seizure disorder, and multiple thyroid nodules with dominant 2cm nodule that underwent FNA in December 2016 which she reports had benign cytology (I do not have the official cytology report available to me today, only the procedure note). She was told that she did not require surgery. She is here for a second opinion because she isvery concerned about the risks of having thyroid nodules and whether a benign cytology result is reassuring. +dysphagia, coughs a lot but only at night. No anterior neck pressure sensatios. Feels like she constantly has to bring phlegm up. FH - a lot of cancer on paternal side - gma in 50s of gastric cancer, father bladder CA still alive, 2 of father's nephews of cancer in the 60s. Niece (34years old) has an enlarged thyroid. TSH was 1.91 in November 2016. PAST MEDICAL HISTORY: Seizure disorder Multiple thyroid nodules - FNA December 2016 with benign cytology MEDICATIONS: Medications 03/23/17 1021 Medication Sig Taking? TRILEPTAL 300 mg Tablet 400 mg daily. ALLERGIES: Allergies not on file SOCIAL HISTORY: History Smoking Status ??? Former Smoker ??? Quit date: 03/23/2003 Smokeless Tobacco ??? Not on file FAMILY HISTORY: No family history on file. REVIEW OF SYSTEMS: All 12 systems reviewed and negative except as noted per HPI. PHYSICAL EXAM: Vitals Office Visit from 03/23/2017 in Endocrinology Weight - Scale 63.5 kg (140 lb) [pt stated] Height 160 cm (5' 3) BSA (Calculated - sq m) 1.68 sq meters BMI (Calculated) 24.8 Heart Rate 63 BP 137/80 Gen: NAD, AAOx3, speaking full sentences, calm pleasant demeanor, average habitus Skin: warm and dry Eyes: PERRL, EOMI, anicteric sclerae without injection, no proptosis or lid lag ENT: moist oral mucosa Neck: no thyromegaly, superficially palpable thyroid nodularity, no lymphadenopathy Pulm: CTAB, no stridor Cardiac: reg s1s2, no m/r/g MSK: 5/5 strength in all muscle groups of the upper and lower extremities, no LE edema Neuro: 2+ biceps and patellar DTRs, no clonus, no delay of the relaxation phase, no tremor. ASSESSMENT/PLAN: 56 yo euthyroid F with a minimally symptomatic multinodular goiter who had a 2.0cmdominant nodule biopsied with benign cytology. We had a long discussion today about the implications of thyroid nodules and the way they are monitored for thyroid cancer. I reassured her first of allthat thyroid nodules are very common, and that 95% of thyroid nodules are benign. I explained that in order to catch the 5% of nodules that are malignant in as early stage as possible, there is a specific method of screening that has been developed, which involves FNA biopsy of thyroid nodules if they meet certain criteria based on sonographic appearance, size, and other characteristics. She has gone through that process already, and the one thyroid nodule that met FNA criteria resulted benign,so it is 99% certain that her HBF-[id number]-gexwwdo thyroid nodule is benign. All the same, we do continue observing all of her thyroid nodules yearly for the next few years for any significant growthor changes in appearance, and if so, would perform another FNA at that time. If nodules do not change in size or appearance over the next three years, the surveillance can be spaced out at that pointto every 2-3 years. She was reassured greatly by this discussion and will plan to return in 1 year for thyroid nodule reassessment. Being that she is having anterior neck compressive symptoms, and her thyroid nodule appears to havea predominantly cystic component, I think that she may experience relief of her symptoms from a therapeutic FNA to try to drain the cystic component as much as possible. Since the nodule has already been demonstrated to be cytologically benign per her recent diagnostic FNA at the other hospital, since I do not need to obtain cytology today, I am able to use local anesthetic and therefore a largerbore needle (21g), as an attempted therapeutic aspiration at the other institution was unsuccessfulwith a standard gauge needle. KATIE ALMANZA MD [employer] Section of Endocrinology [facility] * Katie Almanza MD - 03/23/2017 10:00 AM EDT THYROID ULTRASOUND Date: 04/17/17 Indication: thyroid nodule. Comparison: Real time images of the thyroid gland were obtained using a BK US machine. All measurements are given as AP x Transverse x Longitudinal. Right Lobe: The right lobe measures 1.3 x 1.5 x 4.2 cm, with mildly heterogeneous echotexture. Left Lobe: 2.2 x 2.3 x 3.0 cm predominantly cystic complex nodule, almost completely replacing the L thyroid lobe (post aspiration cyst measured 1.4 x 2.2 x 2.8 cm) Lateral neck: No abnormal lymph nodes were seen. Isthmus: The isthmus measures 0.23 cm in the AP dimension. Impression: Large 3.0cm predominantly cystic L thyroid complex nodule, significantly decreased in size following therapeutic aspiration of 1.5mL of brown non-viscous fluid. Katie Almanza MD [employer] Section of Endocrinology [facility] * Katie Almanza MD - 03/23/2017 10:00 AM EDT THYROID ULTRASOUND GUIDED FNA PROCEDURE NOTE Indication: therapeutic aspiration of a symptomatic cystic nodule Date: 04/17/2017 Informed consent was obtained after a discussion of the nature of the procedure, its risks, benefits and possible alternatives. Immediately prior to the start of the procedure a time out was taken: - The patient's identity was confirmed using two identifiers - The intended procedure, patient positioning and availability of all required equipment was also confirmed. - The proper site(s)/side(s) of the nodule(s) was/were confirmed by visualization with ultrasound. The biopsy site(s) on the patient's neck was/were prepared using isopropyl alchohol. Area was anesthetized locally with subcutaneous 1% lidocaine. 2 passes of a 21g needle were performed, with returnof a total of 1.5 mL of brown non- viscous cystic fluid. The needle placement was ultrasound guided.The needle was visualized in the nodule(s) in each pass. -therapeutic aspiration was performed of: -3.0cm predominantly cystic complex nodule, with benign cytology per FNA in December 2016. The procedure was well tolerated by the patient without any complications. The patient was given a thyroid FNA post-procedure handout upon completion Representatives from pathology were present during the procedure. Katie Almanza MD [employer] Section of Endocrinology documented in this encounter Plan of Treatment Upcoming Encounters Date Type Department Care Team (Late st Contact Info) Description 06/25/2024 9:30 AM EDT Office Visit [place] [address] Janice Villarreal MD [facility] [place] [address] documented as of this encounter Visit Diagnoses Diagnosis Multinodular goiter Nontoxic multinodular goiter documented in this encounter Care Teams Clinical Molecular Geneticist Relationship Specialty Start Date End Date Pradeep Gallardo APRN [address] [address] PCP - General 07/19/10 documented as of this encounter
--- OUTSIDE RECORDS SUMMARY | 2024-03-19 02:06 | XMS_ITS | Encounter Summary ---
[place] [address] Care Team Providers Care Printed Forms Proofreader Name Role Phone Pradeep Gallardo APRN Primary Care Provider [phone] Reason for Visit * Reason Comments Abdominal Pain Diarrhea * Auth/Cert (Routine) Specialty Diagnoses / Procedures Referred By Contac t Referred To Contact Diagnoses Ulcerative colitis Procedures emerg ipi [place] [address] [facility] Referral ID Status Reason Start Date Expiration Date Visits Re quested Visits Authorized [id number] 1 1 Encounter Details Date Type Department Care Team (Latest Contact Info) Description 08/09/2022 9:58 AM EST - 08/14/2022 2:38 PM EST Hospital Encounter [facility] [place] [address] Basil De La Rosa MD [facility] [place] [address] [place] [address] [place] [address] Ulcerative colitis (Primary Dx) Discharge Disposition: Home Social History Tobacco Use [...] Sign Reading Time Taken Comments Blood Pressure 141/69 08/14/2022 8:22 AM EST Pulse 80 08/11/2022 4:53 PM EST Temperature 36.6 ??C (97.9 ??F) 08/14/2022 8:22 AM ES T Respiratory Rate 18 08/14/2022 8:22 AM EST Oxygen Saturation 100% 08/14/2022 8:22 AM EST Inhaled Oxygen Concentration - - Weight 64 kg (141 lb 1.5 oz) 08/13/2022 5:00 AM EST Height 158.8 cm (5' 2.5) 08/09/2022 9:42 AM EST Body Mass Index 25.4 08/09/2022 9:42 AM EST documented in this encounter Discharge Summaries * Tyler Esqueda MD - 08/14/2022 2:38 PM EST Images from the original note were not included. Discharge Summary Patient Name: Elsa Londono Patient Age: 61 y.o. Language: Argentine Race: White Ethnicity: Not nor Admit date: 08/09/2022 Discharge date and time: 08/14/2022 Attending Physician: Tyler Esqueda MD Discharge Physician: Tyler Esqueda MD PCP: Aria Thompson MD ([phone]) Chief Complaint Patient presents with ??? Abdominal Pain ??? Diarrhea ID: Elsa Londono??is a 61 y.o.??female??with hx of ulcerative colitis, benign thyroid nodule, seizuredisorder who is admitted for concern for UC Flare.?? Recommendations for Providers: 1) Recheck sodium at f/u. 2) f/u CBC and ferritin/iron studies for improvement in iron deficiency anemia. Discharge on ferrous sulfate 325 mg q0d. #Castro Med Changes: - Added pantoprazole, atovaquone, and ferrous sulfate Pending Studies and Lab Data: none Discharge Diagnoses (Hospital Problems) and Secondary Diagnoses (Chronic Problems): Active Hospital Problems Diagnosis ??? Ulcerative colitis Resolved Hospital Problems No resolved problems to display. Active Non-Hospital Problems Diagnosis ??? Age related osteoporosis ??? Seizure disorder ??? Nontoxic single thyroid nodule History of Presentation (per 08/09/2022 Admission H&P): UC disease timeline per care everywhere: - Dx at age [age] year old - 03/2019: Canasa 1000mg BID + Asacol 400mg BID -> had extension of disease - Started Lialda 2.4g daily -> but calprotectin increased 101 to 151 -> Liala incrased to 4.8g daily - colonoscopy 07/2021 for infrequent hematochezia, more frequent diarrhea, Biopsies were normal in the cecum, ascending, transverse, descending, with minimal activity in the sigmoid, moderate active colitis in the sigmoid and mild proctitis. - 04/2022 office visit: - developed symptoms of a flare - calprotecton 932 - developed rash on high dose of Lialda so stopped - C. Diff ruled out - 6-MP trial led to worsening of abd pain so stopped - budesonide 9mg for 3 week -> caused rash on hands and did not improve GI symptoms - got 2 doses of Twinrix (second dose on 05/26/22) - started on prednisone 20mg while pending prior auth for vedolizumab -> noted improvement of pain and stool frequency - prenidsone incrased to 40mg on 06/16/22 - vedolizumab (Entyvio) approved 06/2022 - 08/01/22 office visit - complained of continued diarrhea, rectal bleeding, and abd pain, using 3 imodium tablets daily, no fevers, urgency after eating, lost about 10 Ibs in last several weeks - first Entyvio infusion 07/05/22, second and most recent Entyvio infusion 07/19/22 -> developed rash on abd and back - Calprotectin 07/28/22 was 119 - plan for flex sig in 2 days, consider Stelara infusion - 08/07/22 dermatology visit - punch bx to determine whether maculopapular rash on back and posteiror lower extremities was a drug reaction to Entyvio or a dermatologic manifestation of her UC, result pending - 08/07/22 colonoscopy (see bx results below) ? A. COLON, TRANSVERSE, BIOPSY: - Chronic moderately active colitis. See comment. - Negative for dysplasia. B. COLON, DESCENDING, BIOPSY: - Chronic mildly active colitis. See comment. - Negative for dysplasia. C. COLON, SIGMOID, BIOPSY: - Chronic mildly active colitis. See comment. - Negative for dysplasia. D. RECTUM, BIOPSY: - Chronic moderately active proctitis. See comment. - Negative for dysplasia. ? Histologic sections show chronic active colitis consistent with the patient's history of ulcerative colitis. There is no evidence of CMV on H&E sections. ? On interview today, patient reports being sick since 04/2022. Reports 23 Ibs weight loss since 05/2022. Currently reports about 8 stools daily with nighttime incontinence. Describes stools as bright red blood appearing. Associated with bilateral lower abdominal quadrant pain and dizziness. Denies fever, chills, nighsweats. Reports since the Entyvio infusion in the beginning of June, feels thather GI symptoms are a bit better, however, has felt more fatigue with loss of appetite. Denies n/v.Reports tries to eat as much as possible (scramble eggs, salads) and drink water. Reports her rash after the Entyvio infusion has been improving wo intervention. Skin bx result still pending. Denies smoking hx. Denies prior episodes of similar flares. Currently takes prednisone 40mg daily. ?? In the ED, afebrile, HR 89, BP 126/83, satting well on RA. Got 1L LR. C. Diff ordered. Ova and parasite ordered. Stool culture ordered. Hgb 8.6, MCV 87.6, Platelets 665, Na 131, Lactate 1. CT A/P w contrast showed descending and rectosigmoid colitis. No abscess or perforation. Hospital Course: Elsa Londono was admitted to the Hospital Medicine Service on 08/09/2022. The following issues were addressed and she was discharged on 08/14/2022. #Ulcerative colitis, acute flare Patient had full stool studies ordered given her presentation, which came back negative. Her clinical presentation is likely due to an acute flare with suboptimal outpatient therapy. She was started on IV hydrocortisone 100 mg tid for management, however, hematochezia did not improve. Patient received 1 dose of remicade on 08/11 and showed significant improvement of symptoms. Patient was transitioned to PO prednisone 40 mg on 08/13. She was also started on PPI and PJP prophylaxis given fci steroid use. #Iron deficiency anemia # Suspected chronic blood loss anemia secondary to IBD We attempted to give IV iron here in the hospital but patient was unable to tolerate the infusion due to pain. She was started on PO iron qod during the hospitalization. Vitals: Last value Range last 24 hrs Temperature Temp: 36.6 ??C (97.9 ??F) Temp: [36.6 ??C (97.9 ??F)] Heart Rate Heart Rate: 80 Heart Rate: -- Blood Pressure BP: 141/69 BP: (113-141)/(63-72) Art Line BP BP (Arterial Line): -- MAP (NBP): [78 mmHg-90 mmHg] Respiratory Rate Resp: 18 Resp: [16-18] SpO2 SpO2: 100 % SpO2: [97 %-100 %] Oxygen Delivery Oxygen Therapy O2 Device: None (Room air) Physical Exam: GENERAL: Awake, alert, no acute distress HEENT: Anicteric, no conjunctival injection CV: RRR, no murmurs/rubs/gallops, 2+ radial/DP pulses PULM: Normal respiratory effort, CTA with good air entry bilaterally, no rales/rhonchi/wheezes ABDOMEN: Soft, non-tender, non-distended, no masses, no guarding EXTREMITIES: No lower extremity edema. No clubbing or cyanosis PSYCH/NEURO: Appropriate affect and cognition SKIN: Warm, dry, no rashes Procedures: Operations: * No surgery found * Important Studies and Lab Data: CBC: Recent Labs 08/14/22 0512 08/13/22 0501 08/12/22 0722 WBC 14.4* 9.3 8.3 HGB 7.7* 8.3* 7.3* HCT 22.8* 25.4* 22.6* PLATELET 621* 662* 577* NEUTROABS 6.22* 5.29 4.01 Chemistry: Recent Labs 08/14/22 0512 08/13/22 0501 08/12/22 0722 NA 129* 134* 134* K 3.7 3.7 3.6 CL 94* 97* 99 CO2 29 29 26 BUN 14 15 11 CREATININE 0.65* 0.62* 0.47* GLUCOSE 86 125 103 ANIONGAP 6 8 9 Recent Labs 08/14/22 0512 08/13/22 0501 08/12/22 0722 CALCIUM 7.9* 8.4* 8.1* MAGNESIUM -- 0.81 -- PHOS -- 2.4* -- LFT's: Recent Labs 08/14/22 0512 08/13/22 0501 08/12/22 0722 BILITOT <0.2* <0.2* <0.2* BILIDIR <0.1 <0.1 <0.1 ALBUMIN 2.8* 3.1* 2.6* ALKPHOS 47 54 49 ALT 11 8 9 AST 12 9 9 Coags: No results for input(s): PT, INR, PTT, FIBRINOGEN, DDIMER in the last 168 hours. Invalid input(s): THROMBIN TIME No results for input(s): INR in the last 168 hours. Cardiac enzymes: No results for input(s): TROPONINT, CK, PROBNP in the last 7068 hours. Endocrine: No results for input(s): TSH, CORTISOL in the last 7068 hours. Invalid input(s): [id number] No results for input(s): HA1C in the last 7068 hours. Lipids: Heme: No results for input(s): LDH, HAPTOGLOBIN, URICACID in the last 168 hours. ABG (Arterial Blood Gas): No results found for: PHART, PO2ART, BGI4SNJ, OBS7QKM VBG (Venous Blood Gas): No results for input(s): PHVEN, IEJ9GGE, PO2VEN, FND1XAT, BEVEN, EBW7ULS in the last 72 hours. EKG: No results found for: DIAGLINE, QTCCALC Vascular: No results found for: VBTEXTRPT Microbiology: Microbiology Results (Last 30 days) Procedure Component Value Units Date/Time C. Difficile Screen [[id number]] Collected: 08/09/221917 Lab Status: Final result Specimen: Stool Updated: 08/10/22 141 C Diff Screen Negative Comment: PCR Neg C. diff?? Negative (GDH positive, toxin antigen negative, toxin PCR negative) Specimen is negative for C. difficile toxin genetic marker. This test indicates that C. difficile is very unlikely, and does not need to be repeated to rule out disease. If patient is having diarrhea suspected to be from an infectious cause, then Soap & Water Contact Precautions are still required. Stool Culture Screen ([facility]/CGP/APD/NLH) [[id number]] Collected: 08/09/221917 Lab Status: Final result Specimen: Stool Updated: 08/12/22714 Fecal Lactoferrin [[id number]] (Abnormal) Collected: 08/09/221917 Lab Status: Final result Specimen: Stool Updated: 08/09/22 2149 Stool WBC Positive Stool culture [[id number]] Collected: 08/09/221917 Lab Status: Final result Specimen: Stool Updated: 08/12/22714 Stool Culture No enteric pathogens isolated Campylobacter Antigen [[id number]] Collected: 08/09/221917 Lab Status: Final result Specimen: Stool Updated: 08/10/22 0224 Campylobacter Ag Immunoassay Negative for Campylobacter Antigen Shiga Toxin Detection [[id number]] Collected: 08/09/221917 Lab Status: Final result Specimen: Stool Updated: 08/10/221717 Shiga Toxin Assay -- EIA Negative for Shiga Toxin 1 EIA Negative for Shiga Toxin 2 Imaging/Diagnostics No results found for this visit on 08/09/22 (from the past 48 hour(s)). Discharge Conditions/Prognosis: Upon discharge the pt is hemodynamically stable, afebrile, fully ambulatory without supplemental oxygen, holding down food/drink, and pain free . Discharge to: home without services Discharge Medications: Your Medications New Medications Dose Details atovaquone 750 mg/5 mL Susp Commonly known as: Mepron Take 10 mLs by mouth daily. Start taking on: August 15, 2022 1,500 mg Quantity: 210 mL Refills: 0 ferrous sulfate EC 325 mg (65 mg iron) Tbec Take 1 tablet by mouth every other day. Start taking on: August 15, 2022 325 mg Quantity: 30 tablet Refills: 0 hydrocortisone-pramoxine Foam Commonly known as: PROCTOFOAM-HS Place 1 applicator rectally 2 times daily for 14 days. 1 applicator Quantity: 10 g Refills: 1 pantoprazole EC 40 mg Tbec Commonly known as: Protonix Take 1 tablet by mouth daily. Start taking on: August 15, 2022 40 mg Quantity: 60 tablet Refills: 0 Continued medications with new dosing Dose Details OXcarbazepine 300 mg Tab Commonly known as: Trileptal Take 1,050 mg by mouth daily. What changed: Another medication with the same name was removed. Continue taking this medication, and follow the directions you see here. 1,050 mg Refills: 0 Continued medications, unchanged Dose Details predniSONE 20 mg Tab Commonly known as: Deltasone Take 2 tablets by mouth daily. 40 mg Quantity: 60 tablet Refills: 0 STOPPED Medications Canasa 1,000 mg Supp Generic drug: Mesalamine cholecalciferol 400 unit Tab Commonly known as: Vitamin D3 Entyvio 300 mg Solr Generic drug: vedolizumab Updated Allergies/ADRs: Allergies Allergen Reactions ??? Entyvio [Vedolizumab] Rash ??? Sulfa (Sulfonamide Antibiotics) Hives Instructions Given to Patient at Discharge: Patient Instructions Instructions on Discharge to Home Why you were hospitalized - You had a flare of your ulcerative colitis that improved with prednisone. You should continue to take prednisone 40 mg daily until your follow up appointment with gastroenterology. You sodium is low but this is likely from water loss from your diarrhea. Please make sure to hydrate adequately at home. We will schedule follow up with your PCP office for next week to check you sodium. Call your doctor or seek medical attention if you develop the following - chest pain, shortness of breath, feeling dizzy upon standing, passing out, diarrhea, constipation lasting longer than 2 days,fevers (temperature over 100.3), chills, abdominal pain, vomiting, difficulty or discomfort when urinating, bloody or black bowel movements, or any other acute or concerning symptom. Activity level - No restrictions Diet - No change in previous diet Driving - As before hospitalization Shower/Bath - Permitted Wound Care - None Home Oxygen therapy - Not necessary Your Discharge Medication List Your Medications STOPPED Medications Canasa 1,000 mg Supp Generic drug: Mesalamine cholecalciferol 400 unit Tab Commonly known as: Vitamin D3 UNREVIEWED medications - Discuss With Your Provider Dose Details Entyvio 300 mg Solr Inject 300 mg into the vein. Generic drug: vedolizumab 300 mg Refills: 0 OXcarbazepine 300 mg Tab Commonly known as: Trileptal Take 1,050 mg by mouth daily. Ask about: Which instructions should I use? 1,050 mg Refills: 0 predniSONE 20 mg Tab Commonly known as: Deltasone Take 40 mg by mouth daily. 40 mg Refills: 0 Follow-up: Future Appointments Date Time Provider Department Center 09/25/2022 4:00 PM Joanne Montague APRN [facility] GASTRO [facility] Appointment: You have a hospital follow up appointment with your primary care provider, Dr. Aria Thompson, Tuesday August 23, 2022 11:30 Your Inpatient Medical Team at [facility] Name(s) of your inpatient provider(s): Tyler Esqueda MD Your Primary Care Provider: Aria Thompson MD [phone] For questions regarding this document or issues relating to this hospitalization on the Medical Service, please contact your inpatient physician through the [facility] Facility Mechanic . Issues afterhours and on weekends will be handled by the Hospitalist staff on-call. General Instructions None Future Appointments and Orders Future Appointments and Orders Future Appointments Provider Department Dept Phone 09/25/2022 4:00 PM Joanne Montague APRN Gastroenterology at [facility] Arrive at: [employer] [facility] [address] [phone] Provider Contact Information: Aria Thompson MD [address] [place] / [facility] [address] Discharge References/Attachments: Discharge References/Attachments None documented in this encounter Discharge Instructions * Patient Instructions* Trevin Neville - 08/14/2022 12:13 PM EST Instructions on Discharge to Home Why you were hospitalized - You had a flare of your ulcerative colitis that improved with prednisone. You should continue to take prednisone 40 mg daily until your follow up appointment with gastroenterology. You sodium is low but this is likely from water loss from your diarrhea. Please make sure to hydrate adequately at home. We will schedule follow up with your PCP office for next week to check you sodium. Call your doctor or seek medical attention if you develop the following - chest pain, shortness of breath, feeling dizzy upon standing, passing out, diarrhea, constipation lasting longer than 2 days,fevers (temperature over 100.3), chills, abdominal pain, vomiting, difficulty or discomfort when urinating, bloody or black bowel movements, or any other acute or concerning symptom. Activity level - No restrictions Diet - No change in previous diet Driving - As before hospitalization Shower/Bath - Permitted Wound Care - None Home Oxygen therapy - Not necessary Your Discharge Medication List Your Medications STOPPED Medications Canasa 1,000 mg Supp Generic drug: Mesalamine cholecalciferol 400 unit Tab Commonly known as: Vitamin D3 UNREVIEWED medications - Discuss With Your Provider Dose Details Entyvio 300 mg Solr Inject 300 mg into the vein. Generic drug: vedolizumab 300 mg Refills: 0 OXcarbazepine 300 mg Tab Commonly known as: Trileptal Take 1,050 mg by mouth daily. Ask about: Which instructions should I use? 1,050 mg Refills: 0 predniSONE 20 mg Tab Commonly known as: Deltasone Take 40 mg by mouth daily. 40 mg Refills: 0 Follow-up: Future Appointments Date Time Provider Department Center 09/25/2022 4:00 PM Joanne Montague APRN [facility] GASTRO [facility] Appointment: You have a hospital follow up appointment with your primary care provider, Dr. Aria Thompson, Tuesday August 23, 2022 11:30 Your Inpatient Medical Team at [facility] Name(s) of your inpatient provider(s): Tyler Esqueda MD Your Primary Care Provider: Aria Thompson MD [phone] For questions regarding this document or issues relating to this hospitalization on the Medical Service, please contact your inpatient physician through the [facility] Facility Mechanic . Issues afterhours and on weekends will be handled by the Hospitalist staff on-call. documented in this encounter Medications at Time of Discharge Medication Sig Dispensed Refills Start Date End Date OXcarbazepine (Trileptal) 300 mg Tablet Take 1,050 mg by mouth daily. OXcarbazepine (TRILEPTAL) 300 mg tablet 04/04/2002 ferrous sulfate EC 325 mg (65 mg iron) Tablet, Delayed Release (E.C.) Take 1 tablet by mouth every other day. 30 tablet 08/15/2022 06/13/2023 predniSONE (Deltasone) 20 mg Tablet Take 2 tablets by mouth daily. 60 tablet 08/14/2022 01/04/2023 hydrocortisone-pramoxi ne (PROCTOFOAM-HS) Foam Place 1 applicator rectally 2 times daily for 14 days. 10 g 1 08/14/2022 10/16/2022 pantoprazole EC (Protonix) 40 mg Tablet, Delayed Release (E.C.) Take 1 tablet by mouth daily. 60 tablet 08/15/2022 01/04/2023 atovaquone (Mepron) 750 mg/5 mL Suspension Take 10 mLs by mouth daily. 210 mL 08/15/2022 01/04/2023 documented as of this encounter Progress Notes * Tyler Esqueda MD - 08/14/2022 2:38 PM EST Hospital Medicine - Attending Day of Discharge Documentation Discharge diagnosis Active Hospital Problems Diagnosis ??? Ulcerative colitis Resolved Hospital Problems No resolved problems to display. Secondary Issues Active Non-Hospital Problems Diagnosis ??? Age related osteoporosis ??? Seizure disorder ??? Nontoxic single thyroid nodule I have personally seen and examined the patient and they are ready for discharge. I spent >30 minutes (Day of Discharge Code 21843) involved in the final examination of the patient, discussion of the hospital stay, instructions for continuing care to all relevant caregivers, and preparation of discharge records, prescriptions and referral forms. Plans ? Discharge to Home ? Follow-up scheduled with PCP. ? Please see the Discharge Summary for complete details of any medication changes and additional plans. Tyler Esqueda MD * Daksha Bhatti RD - 08/14/2022 8:49 AM EST Nutrition Initial Note Elsa Londono??61 y.o./ w/ PMH of??panulcerative colitis??adm??with??worsening bloody diarrhea concerning for flare. Reason for intervention: Education Nutrition Recommendations: Suggest Low Fiber diet Encourage po intake. Glucerna prn Monitor wt Active Orders Diet Regular diet Frequency: Effective Now Number of Occurrences: Until Specified Nourishments Adult diet Oral Supplements Ensure Enlive Frequency: TID Number of Occurrences: Until Specified Order Comments: TID with meals Lab Results Component Value Date NA 129 (L) 08/14/2022 K 3.7 08/14/2022 CL 94 (L) 08/14/2022 CO2 29 08/14/2022 BUN 14 08/14/2022 CREATININE 0.65 (L) 08/14/2022 ESTGFR 99 08/14/2022 MAGNESIUM 0.81 08/13/2022 CALCIUM 7.9 (L) 08/14/2022 PHOS 2.4 (L) 08/13/2022 AST 12 08/14/2022 ALT 11 08/14/2022 ALKPHOS 47 08/14/2022 BILITOT <0.2 (L) 08/14/2022 BILIDIR <0.1 08/14/2022 CRP 9.9 (H) 08/14/2022 IRON 18 (L) 08/10/2022 No results found for: POCGLU Skin Status: Shift Pressure Injury Prevention Occiput: No Injury Thoracic Spine: No Injury Sacral: No Injury Ischial - left: No Injury Ischial - right: No Injury Heel - left: No Injury Heel - right: No Injury Elbow - left: No Injury Elbow - right: No Injury Device Sites: O2 sat monitor Relevant medications: ferrous sulfate, protonix, others noted Last Bowel Movement: 08/11/22 Admit Weight: 61.69 kg Estimated body mass index is 25.4 kg/m?? as calculated from the following: Height as of this encounter: 158.8 cm (5' 2.5). Weight as of this encounter: 64 kg (141 lb 1.5 oz). [facility] Body Weight: WNL Usual Body Weight: see below Wt Readings from Last 10 Encounters: 08/13/22 64 kg (141 lb 1.5 oz) 03/12/18 67.1 kg (148 lb) 03/23/17 63.5 kg (140 lb) Patient Vitals for the past 168 hrs: Weight 08/13/22 0500 64 kg (141 lb 1.5 oz) 08/09/22 0942 61.7 kg (136 lb) Assessment: Nutrition intake and intake history/Interview: Pt seen for UC diet education. Provided low fiber dies education as pt is currently in a flair and suggested she follow this diet until her flair resolves. Discussed low fiber foods as well as foods to avoid. Provided pt w/ written education material to take home and answered all of her questions. Pt requested lower sugar Ensure as she is sometimes sensitive to high sugar foods, will send Juan. Estimated needs: Calories: 0772-1973 (22-25 kcal/kg) Protein: 76 grams (1.2g/kg) Nutrition Focused Physical Exam (NFPE): Not performed Protein-calorie Malnutrition: Not identified (Zachariah, JPEN J Parenteral Enteral Nutr. 2011; 36(3): 273-83) Nutrition to continue to follow up while inpatient Daksha Bhatti RD Pager #:[phone] * Janice Villarreal - 08/14/2022 7:00 AM EST GASTROENTEROLOGY & HEPATOLOGY INPATIENT PROGRESS NOTE ID: Elsa Londono 61 y.o./ w/ PMH of panulcerative colitis adm with worsening bloody diarrhea concerning for flare. Interval History: --transitioned to oral prednisone yesterday -- HDS, afebrile --CRP 44-->39-->18.7-->9.9 --Hb 7.7 this morning, Pl 621 --1 BM yesterday; passing a lot more gas with abdominal discomfort. Tylenol prn helping for pain. She wonders if she needs higher dose steroids because she is starting to feel some tenesmus. Active Hospital Problem List Patient Active Problem List Diagnosis Code ??? 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 Ulcerative colitis K51.90 Scheduled Meds: ??? atovaquone 1,500 mg Oral Daily ??? ferrous sulfate EC 325 mg Oral Every Other Day ??? OXcarbazepine 1,050 mg Oral Q24H ??? pantoprazole EC 40 mg Oral Daily ??? sodium chloride 0.9 % (flush) 5 mL Intravenous BID ??? hydrocortisone sodium succinate 100 mg Intravenous Q8H RAFI Continuous Infusions: PRN Meds:.diphenhydrAMINE, sodium chloride 0.9 % (flush), lidocaine, senna- docusate, acetaminophen,ondansetron OR ondansetron Physical Examination Vitals: 08/12/22 2320 08/13/22 0455 08/13/22 0500 08/13/22 0851 BP: 116/70 136/75 112/62 BP Location (NBP): Right arm Right arm Right arm Patient Position: Lying Lying Lying Pulse: Resp: Temp: 36.6 ??C (97.9 ??F) 36.6 ??C (97.9 ??F) TempSrc: Oral Oral SpO2: 97% 98% 98% Weight: 64 kg (141 lb 1.5 oz) Height: PHYSICAL EXAM CONST: Awake, alert, no acute distress HEENT: sclerae anicteric RESP: normal RR CARDIAC: RRR GI: abdomen soft, non-tender, non-distended, MSK: legs warm, palpable pulses b/l, no significant edema SKIN: No jaundice, rash, or bruising NEURO: Grossly intact, moves all extremities PSYCH: Pleasant, appropriate affect Pertinent Recent labs CBC Lab Results Component Value Date WBC 9.3 08/13/2022 Hemoglobin 8.3 (L) 08/13/2022 Hematocrit 25.4 (L) 08/13/2022 Platelets 662 (H) 08/13/2022 Lab Results Component Value Date Sodium 134 (L) 08/13/2022 Potassium 3.7 08/13/2022 Chloride 97 (L) 08/13/2022 CO2 29 08/13/2022 BUN 15 08/13/2022 Creatinine 0.62 (L) 08/13/2022 Glucose Lvl 125 08/13/2022 LFT's Lab Results Component Value Date Alk Phos 54 08/13/2022 AST 9 08/13/2022 Albumin 3.1 (L) 08/13/2022 Bili, Direct <0.1 08/13/2022 Total Bilirubin <0.2 (L) 08/13/2022 ALT 8 08/13/2022 Total Protein 5.4 (L) 08/13/2022 Pertinent Endoscopic Procedures/Reports: Reviewed Pertinent Recent Imagin08/09/22 CT A/P IMPRESSION ?? Descending and rectosigmoid colitis. No abscess nor perforation. ASSESSMENT & PLAN: Elsa Londono 61 y.o./ w/ PMH of panulcerative colitis adm with worsening bloody diarrhea concerning for flare. Required rescue Remicade on 08/11 due to minimal progression on IVCS and prolonged oral taper. Now with noticeable improvements, can likely plan for second Remicade dose as outpatient in two weeks, can continue steroid taper as outpatient. She may not be here long enough to benefit from HBOT since they are only now available (generally 5 or more sessions recommended to see benefit). ?? Recommendations: - s/p Remicade 10mg/kg x1 (08/11/22) - continue prednisone 40mg daily at discharge, we will taper at f/up - 14 days hydrocortisone proctofoam therapy - PUD ppx with PPI daily, continue at discharge - PCP ppx, continue at discharge - strict BM monitoring, serial abdominal exams - SCDs, ambulation - HBV immune; Quant gold negative - serial abdominal exams - avoid opiates and NSAIDs - second dose Remicade as outpatient, we will arrange - GI f/up, we will arrange This case was discussed with Dr. Rohith Villarreal M.D. Fellow in Gastroenterology and Hepatology Pager #[phone] 08/13/2022 Associated attestation - Jony Newberry MD - 08/14/2022 2:57 PM EST I have independently seen and examined the patient, and have reviewed the resident???s above note, and agree with the documented history, physical findings, and study results; my evaluation of the patient is below: I meet with Ms Londono who was packing her bags an eager to be discharged now feeling much better. I agree with the plan as outlined by DR Cherelle Newberry MD * Mandy Senior RN - 08/13/2022 5:25 PM EST Pt A/Ox4. Spo2 monitoring. Family at bedside during the day. Spontaneous voiding. No BP today per pt. Reports a lot of gas. Tylenol for some stomach discomfort. Will continue to monitor. * Hermila East MD - 08/13/2022 8:08 AM EST GASTROENTEROLOGY & HEPATOLOGY INPATIENT PROGRESS NOTE ID: Elsa Londono 61 y.o./ w/ PMH of panulcerative colitis adm with worsening bloody diarrhea concerning for flare. Interval History: --Continues IVCS -- HDS, afebrile --CRP 44-->39-->18.7 --Hb 8.3 this morning, Pl 662 -- 3 BM in 24 hours, 1 this morning. No longer any blood in stool. Very loose still but better thanbefore. Elsa is very happy that the Remicade seems to be helping. No abdominal pain/distention. She is being careful with what to eat. Active Hospital Problem List Patient Active Problem List Diagnosis Code ??? 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 Ulcerative colitis K51.90 Scheduled Meds: ??? atovaquone 1,500 mg Oral Daily ??? ferrous sulfate EC 325 mg Oral Every Other Day ??? OXcarbazepine 1,050 mg Oral Q24H ??? pantoprazole EC 40 mg Oral Daily ??? sodium chloride 0.9 % (flush) 5 mL Intravenous BID ??? hydrocortisone sodium succinate 100 mg Intravenous Q8H RAFI Continuous Infusions: PRN Meds:.diphenhydrAMINE, sodium chloride 0.9 % (flush), lidocaine, senna- docusate, acetaminophen,ondansetron OR ondansetron Physical Examination Vitals: 08/12/22 0507 08/12/22 0800 08/12/22 1037 08/12/22 1200 BP: 126/74 127/62 97/77 101/69 BP Location (NBP): Left arm Left arm Left arm Patient Position: Lying Lying Pulse: Resp: Temp: 36.3 ??C (97.3 ??F) 36.5 ??C (97.7 ??F) 36.5 ??C (97.7 ??F) TempSrc: Oral Oral Oral SpO2: 96% 99% 96% 100% Weight: Height: PHYSICAL EXAM CONST: Awake, alert, no acute distress HEENT: sclerae anicteric RESP: normal RR CARDIAC: RRR GI: abdomen soft, non-tender, non-distended, MSK: legs warm, palpable pulses b/l, no significant edema SKIN: No jaundice, rash, or bruising NEURO: Grossly intact, moves all extremities PSYCH: Pleasant, appropriate affect Pertinent Recent labs CBC Lab Results Component Value Date WBC 8.3 08/12/2022 Hemoglobin 7.3 (L) 08/12/2022 Hematocrit 22.6 (L) 08/12/2022 Platelets 577 (H) 08/12/2022 Lab Results Component Value Date Sodium 134 (L) 08/12/2022 Potassium 3.6 08/12/2022 Chloride 99 08/12/2022 CO2 26 08/12/2022 BUN 11 08/12/2022 Creatinine 0.47 (L) 08/12/2022 Glucose Lvl 103 08/12/2022 LFT's Lab Results Component Value Date Alk Phos 49 08/12/2022 AST 9 08/12/2022 Albumin 2.6 (L) 08/12/2022 Bili, Direct <0.1 08/12/2022 Total Bilirubin <0.2 (L) 08/12/2022 ALT 9 08/12/2022 Total Protein 5.0 (L) 08/12/2022 Pertinent Endoscopic Procedures/Reports: Reviewed Pertinent Recent Imagin08/09/22 CT A/P IMPRESSION ?? Descending and rectosigmoid colitis. No abscess nor perforation. ASSESSMENT & PLAN: Elsa Londono 61 y.o./ w/ PMH of panulcerative colitis adm with worsening bloody diarrhea concerning for flare. Required rescue Remicade on 08/11 due to minimal progression on IVCS and prolonged oral taper. Now with noticeable improvements, can likely plan for second Remicade dose as outpatient in two weeks. Recommend transition to oral steroids today. If she is stable or improved tomorrow, can continue taper as outpatient. She may not be here long enough to benefit from HBOT since they are not available until tomorrow (generally 5 or more sessions recommended to see benefit). ?? Recommendations: - s/p Remicade 10mg/kg x1 (08/11/22) - discontinue IV Hydrocortisone (08/09-08/13) - start prednisone 40mg daily - daily CRP - IV hydration - PUD ppx with PPI daily - PCP ppx - strict BM monitoring, serial abdominal exams - SCDs, ambulation - HBV immune; Quant gold negative - serial abdominal exams - avoid opiates and NSAIDs - second dose Remicade as outpatient, we will arrange - GI f/up, we will arrange This case was discussed with Dr. Cruzito Villarreal M.D. Fellow in Gastroenterology and Hepatology Pager #[phone] 08/12/2022 ATTENDING ATTESTATION: I have seen and evaluated the patient with Dr. Villarreal. I have reviewed the fellow's history during the encounter and I agree with the details as written above. My physical examination confirms the above findings. The assessment and plan were formulated in discussion with me at the time of the encounter and I agree with them as documented. Hermila East MD Gastroenterology attending Pager [phone] * Marc Cunningham MD - 08/13/2022 7:27 AM EST Inpatient Hospital Medicine Progress Note Patient Name: ELSA LONDONO Date of : 1960 Age: 61 y.o. Hospital Admit Date: 08/09/2022 Hospital Day: 4 Inpatient Attending: Tyler Esqueda MD PCP: Derrick Mir MD ([phone]) Chief Complaint Patient presents with ??? Abdominal Pain ??? Diarrhea ID: Elsa Londono is a 61 y.o. female with hx of ulcerative colitis, benign thyroid nodule, seizure disorder who is admitted for concern for UC Flare. Started on IV hydrocortisone 100mg TID on 08/09, and received first infusion of infliximab 10mg/kg on 08/11. 24 HOUR EVENTS & SUBJECTIVE: - Yesterday, - S/p infliximab infusion 10mg/kg - Patient reports resolution of hematochezia - Overnight, - NAEON - This morning, pt reports: - Patient reports resolution of hematochezia s/p remicade infusion - She states that she had about 3-4 BMs yesterday, endorses continued feeling like she needs to go - Patient states that she would like to get remicade again before discharge if possible OBJECTIVE: Vitals: Last value Range last 24 hrs Temperature Temp: 36.6 ??C (97.9 ??F) Temp: [36.5 ??C (97.7 ??F)-36.7 ??C (98 ??F)] Heart Rate Heart Rate: 80 Heart Rate: -- Blood Pressure BP: 136/75 BP: (97-136)/(62-82) Art Line BP BP (Arterial Line): -- MAP (NBP): [80 mmHg-94 mmHg] Respiratory Rate Resp: 18 Resp: [18] SpO2 SpO2: 98 % SpO2: [96 %-100 %] Oxygen Delivery Oxygen Therapy O2 Device: None (Room air) Intake/Output Summary (Last 24 hours) at 08/13/2022 07 Last data filed at 08/12/2022 1600 Gross per 24 hour Intake 720 ml Output 100 ml Net 620 ml I/O last 3 completed shifts: In: 720 [P.O.:720] Out: 100 [Urine:100] Body mass index is 25.4 kg/m??. Patient Vitals for the past 168 hrs: Weight 08/13/22 0500 64 kg (141 lb 1.5 oz) 08/09/22 0942 61.7 kg (136 lb) Admit wt: 61.69 kg Physical Exam: GENERAL: Awake, alert, no acute distress HEENT: Anicteric, no conjunctival injection CV: RRR, no murmurs/rubs/gallops, 2+ radial/DP pulses PULM: Normal respiratory effort, CTA with good air entry bilaterally, no rales/rhonchi/wheezes ABDOMEN: Soft, non-tender, non-distended, no masses, no guarding EXTREMITIES: No lower extremity edema. No clubbing or cyanosis PSYCH/NEURO: Appropriate affect and cognition SKIN: Warm, dry, no rashes LABS: CBC: Recent Labs 08/13/22 0501 08/12/22 0708/11/22 0709 WBC 9.3 8.3 8.2 HGB 8.3* 7.3* 7.4* HCT 25.4* 22.6* 22.3* PLATELET 662* 577* 575* NEUTROABS 5.29 4.01 5.17 Chemistry: Recent Labs 08/13/22 0501 08/12/22 0722 08/11/22 0709 NA 134* 134* 132* K 3.7 3.6 3.0* CL 97* 99 96* CO2 29 26 25 BUN 15 11 7* CREATININE 0.62* 0.47* 0.60* GLUCOSE 125 103 107 ANIONGAP 8 9 11 Recent Labs 08/13/22 0501 08/12/22 0722 08/11/22 0709 CALCIUM 8.4* 8.1* 7.9* LFT's: Recent Labs 08/13/22 0501 08/12/22 0722 08/11/22 0709 BILITOT <0.2* <0.2* <0.2* BILIDIR <0.1 <0.1 <0.1 ALBUMIN 3.1* 2.6* 3.0* ALKPHOS 54 49 52 ALT 8 9 6 AST 9 9 7 Coags: No results for input(s): PT, INR, PTT, FIBRINOGEN, DDIMER in the last 168 hours. Invalid input(s): THROMBIN TIME No results for input(s): INR in the last 168 hours. Cardiac enzymes: No results for input(s): TROPONINT, CK, PROBNP in the last 7068 hours. Endocrine: No results for input(s): TSH, CORTISOL in the last 7068 hours. Invalid input(s): [id number] No results for input(s): HA1C in the last 7068 hours. Lipids: Heme: No results for input(s): LDH, HAPTOGLOBIN, URICACID in the last 168 hours. ABG (Arterial Blood Gas): No results found for: PHART, PO2ART, CHW4IUI, NBF4URW VBG (Venous Blood Gas): No results for input(s): PHVEN, LHH1UOG, PO2VEN, LWF2PKH, BEVEN, CVL4BUF in the last 72 hours. EKG: No results found for: DIAGLINE, QTCCALC Vascular: No results found for: VBTEXTRPT Microbiology: No results found for: URINECULTURE No results found for: GRAMSTAIN, BFCX, LOWERRESPCX, TISSUECX No results found for: BLOODCX Imaging/Diagnostics: No results found for this visit on 08/09/22 (from the past 48 hour(s)). Medications: Scheduled: ??? atovaquone 1,500 mg Oral Daily ??? ferrous sulfate EC 325 mg Oral Every Other Day ??? OXcarbazepine 1,050 mg Oral Q24H ??? pantoprazole EC 40 mg Oral Daily ??? sodium chloride 0.9 % (flush) 5 mL Intravenous BID ??? hydrocortisone sodium succinate 100 mg Intravenous Q8H RAFI Continuous: PRN: diphenhydrAMINE, sodium chloride 0.9 % (flush), lidocaine, senna-docusate, acetaminophen, ondansetron OR ondansetron ASSESSMENT and PLAN: robert Londono is a 61 y.o. female with hx of ulcerative colitis, benign thyroid nodule, seizure disorder who is admitted for UC flare. 08/13: Stool Calprotectin > 2000. CRP downtrending. Stool infectious studies negative. Quantiferon negative. Immune to Hep B. Started IV hydrocortisone 100mg TID on 08/09 and discontinued on 08/13. Received first infusion of infliximab on 08/11. Overall, UC flare improving clinically and CRP downtrending. Per GI, since symptoms improving and inflammatory markers downtrending, no plan for additional infliximab infusion inpatient. If remains stable, plan to discharge in the next few days on posteroid taper. Plan: - dc IV steroid, restart PO prednisone 40 mg daily - PO iron qod - PPI and atovaquone #Ulcerative colitis, acute flare - Flex sig 08/07/22 bx at [facility]: chronic moderately active colitis in transverse, descending, sigmoid, and proctitis - current outpt regimen: Entyvio 300mg IV q8 weeks, last received 07/19/22, prednisone 40mg daily - s/p 1 L LR in the ED - Daily CRP: 30 -> 21 -> 44.4 -> 39 -> 18 - Fecal lactoferrin positive, fecal calprotectin > 2000 - Ova and parasites neg - C. Diff negative - Stool culture neg - GI consulted and following - solucortef 100mg TID (08/09 - 08/13) - PO prednisone 40 mg daily - infliximab infusion (08/11) - Continue atovaquone for PJP prophylaxis given fci steroid use - refused lovenox, on SCD ?? #Seizure disorder - continue home trileptal 300mg 3.5 tabs nightly #Housekeeping: DVT PPx: SCD GI PPx: Pantoprazole 40 mg Diet: Regular diet Lines: Peripheral IV Line - Single Lumen 08/12/22 1524 cephalic vein (lateral side of arm), left 22gauge;1 in length (Active) Number of days: 0 D/c planning: Pending medical stabilization Code status: Full code Marc Cunningham MD Internal Medicine PGY1 Medicine Team: [facility]ango [id number] Associated attestation - Tyler Esqueda MD - 08/13/2022 3:54 PM EST Attending Attestation Please see Dr. Cunningham's note for details of the patient history of presentation and data. I have discussed, reviewed and agree with the documented History, Physical findings, Assessment and Plan of care. I have examined the patient myself and personally reviewed all studies. In addition, I certify that I am a [facility] credentialed attending provider with admitting privileges and that the patient meets orhas met medical necessity to require an inpatient IPI level of care meeting a minimum of two midnights or is on the [facility] inpatient only procedure list (status C) due to: monitoring of fluid status given an inability to regulate fluid balance and the need for administration or restriction of fluids and UC flare. Briefly, this is a 61 year old female admitted with UC flare s/p remicade (08/11/2022), CRP downtrending further with some improvements in bowel movements. Transitioning to PO steroids. Plan for outpatient remicade. Rest as below. Tyler Esqueda MD * Hermila East MD - 08/12/2022 10:21 AM EST GASTROENTEROLOGY & HEPATOLOGY INPATIENT PROGRESS NOTE ID: Elsa Londono 61 y.o./ w/ PMH of panulcerative colitis adm with worsening bloody diarrhea concerning for flare. Interval History: -- Quantiferon gold negative -- Rescue dose Remicade 10mg/kg yesterday. Tolerated well -- Continues IVCS -- HDS, afebrile --CRP 44-->39 -- 6 BM recorded in 24 hours, all with stool and now no longer with bleeding. No abdominal pain/distention. -- requesting to hold DVT ppx because she thinks it is causing her to have a reaction. Ambulatory throughout day. Active Hospital Problem List Patient Active Problem List Diagnosis Code ??? 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 Ulcerative colitis K51.90 Scheduled Meds: ??? potassium chloride ER 40 mEq Oral Q4H ??? ferrous sulfate EC 325 mg Oral Every Other Day ??? enoxaparin 40 mg Subcutaneous Daily ??? OXcarbazepine 1,050 mg Oral Q24H ??? pantoprazole EC 40 mg Oral Daily ??? sodium chloride 0.9 % (flush) 5 mL Intravenous BID ??? hydrocortisone sodium succinate 100 mg Intravenous Q8H RAFI Continuous Infusions: PRN Meds:.diphenhydrAMINE, sodium chloride 0.9 % (flush), lidocaine, senna- docusate, acetaminophen,ondansetron OR ondansetron Physical Examination Vitals: 08/10/22 2108 08/11/22 0300 08/11/22 1013 08/11/22 1653 BP: 117/71 128/61 129/85 121/68 BP Location (NBP): Right arm Right arm Patient Position: Lying Lying Lying Pulse: 84 80 Resp: 20 18 Temp: 36.5 ??C (97.7 ??F) 36.6 ??C (97.9 ??F) 36.5 ??C (97.7 ??F) TempSrc: Oral Oral Oral SpO2: 96% 96% 97% 98% Weight: Height: PHYSICAL EXAM CONST: Awake, alert, no acute distress HEENT: sclerae anicteric RESP: normal RR CARDIAC: RRR GI: abdomen soft, non-tender (improved), non-distended, MSK: legs warm, palpable pulses b/l, no significant edema SKIN: No jaundice, rash, or bruising NEURO: Grossly intact, moves all extremities PSYCH: Pleasant, appropriate affect Pertinent Recent labs CBC Lab Results Component Value Date WBC 8.2 08/11/2022 Hemoglobin 7.4 (L) 08/11/2022 Hematocrit 22.3 (L) 08/11/2022 Platelets 575 (H) 08/11/2022 Lab Results Component Value Date Sodium 132 (L) 08/11/2022 Potassium 3.0 (CRIT) 08/11/2022 Chloride 96 (L) 08/11/2022 CO2 25 08/11/2022 BUN 7 (L) 08/11/2022 Creatinine 0.60 (L) 08/11/2022 Glucose Lvl 107 08/11/2022 LFT's Lab Results Component Value Date Alk Phos 52 08/11/2022 AST 7 08/11/2022 Albumin 3.0 (L) 08/11/2022 Bili, Direct <0.1 08/11/2022 Total Bilirubin <0.2 (L) 08/11/2022 ALT 6 08/11/2022 Total Protein 5.1 (L) 08/11/2022 Pertinent Endoscopic Procedures/Reports: Reviewed Pertinent Recent Imagin08/09/22 CT A/P IMPRESSION ?? Descending and rectosigmoid colitis. No abscess nor perforation. ASSESSMENT & PLAN: Elsa Londono 61 y.o./ w/ PMH of panulcerative colitis adm with worsening bloody diarrhea concerning for flare. Required rescue Remicade on 08/11 due to minimal progression on IVCS and prolonged oral taper. Somesmall improvements with stool output and decreased bleeding. Awaiting chance to start HBOT sessions, not available until Sunday. If Elsa continues to improve and can be discharged with a prednisone taper, would plan to continue Remicade as outpatient. ?? Recommendations: - s/p Remicade 10mg/kg x1 (08/11/22) - continue IV Hydrocortisone 100mg TID (pm 08/09-) - daily CRP - okay to discontinue Lovenox, recommend SCDs and ambulation - IV hydration - PUD ppx with PPI daily - please start PCP ppx - strict BM monitoring, serial abdominal exams - HBV immune; Quant gold negative - Hyperbaric Team consult when available - serial abdominal exams - avoid opiates and NSAIDs This case was discussed with Dr. Cruzito Villarreal M.D. Fellow in Gastroenterology and Hepatology Pager #[phone] 08/11/2022 ATTENDING ATTESTATION: I have seen and evaluated the patient with Dr. Villarreal. I have reviewed the fellow's history during the encounter and I agree with the details as written above. My physical examination confirms the above findings. The assessment and plan were formulated in discussion with me at the time of the encounter and I agree with them as documented. Hermila East MD Gastroenterology attending Pager [phone] * Jenise Tijerina MD - 08/12/2022 8:28 AM EST Inpatient Hospital Medicine Progress Note Patient Name: ELSA LONDONO Date of : 1960 Age: 61 y.o. Hospital Admit Date: 08/09/2022 Hospital Day: 3 Inpatient Attending: Tyler Esqueda MD PCP: Derrick Mir MD ([phone]) Chief Complaint Patient presents with ??? Abdominal Pain ??? Diarrhea ID: Elsa Londono is a 61 y.o. female with hx of ulcerative colitis, benign thyroid nodule, seizure disorder who is admitted for concern for UC Flare. Started on IV hydrocortisone 100mg TID on 08/09, and received first infusion of infliximab 10mg/kg on 08/11. 24 HOUR EVENTS & SUBJECTIVE: - Yesterday, - Started infliximab infusion 10mg/kg x 1 - Overnight, - NAEON - This morning, pt reports: - bloody stools have improved OBJECTIVE: Vitals: Last value Range last 24 hrs Temperature Temp: 36.3 ??C (97.3 ??F) Temp: [36.3 ??C (97.3 ??F)-36.6 ??C (97.9 ??F)] Heart Rate Heart Rate: 80 Heart Rate: [80-84] Blood Pressure BP: 127/62 BP: (114-129)/(62-85) Art Line BP BP (Arterial Line): -- MAP (NBP): [78 mmHg-99 mmHg] Respiratory Rate Resp: 18 Resp: [18] SpO2 SpO2: 99 % SpO2: [96 %-99 %] Oxygen Delivery Oxygen Therapy O2 Device: None (Room air) Intake/Output Summary (Last 24 hours) at 08/12/2022 0828 Last data filed at 08/12/2022 0800 Gross per 24 hour Intake 755 ml Output 0 ml Net 755 ml I/O last 3 completed shifts: In: 855 [P.O.:850; I.V.:5] Out: - Body mass index is 24.48 kg/m??. Patient Vitals for the past 168 hrs: Weight 08/09/22 0942 61.7 kg (136 lb) Admit wt: 61.69 kg Physical Exam: GENERAL: Awake, alert, no acute distress HEENT: Anicteric, no conjunctival injection CV: RRR, no murmurs/rubs/gallops, 2+ radial/DP pulses PULM: Normal respiratory effort, CTA with good air entry bilaterally, no rales/rhonchi/wheezes ABDOMEN: Soft, non-tender, non-distended, no masses, no guarding EXTREMITIES: No lower extremity edema. No clubbing or cyanosis PSYCH/NEURO: Appropriate affect and cognition SKIN: Warm, dry, no rashes LABS: CBC: Recent Labs 08/12/22 0708/11/22 0709 08/10/22 1210 08/10/22 0116 WBC 8.3 8.2 -- 10.8* HGB 7.3* 7.4* 7.8* 7.4* HCT 22.6* 22.3* 23.0* 22.4* PLATELET 577* 575* -- 507* NEUTROABS 4.01 5.17 -- 8.90* Chemistry: Recent Labs 08/12/22 0722 08/11/22 0709 08/10/22 0116 NA 134* 132* 130* K 3.6 3.0* 3.6 CL 99 96* 95* CO2 26 25 24 BUN 11 7* 6* CREATININE 0.47* 0.60* 0.59* GLUCOSE 103 107 119 ANIONGAP 9 11 11 Recent Labs 08/12/22 0722 08/11/22 0709 08/10/22 0116 CALCIUM 8.1* 7.9* 7.8* LFT's: Recent Labs 08/12/22 0722 08/11/22 0709 08/10/22 0116 BILITOT <0.2* <0.2* <0.2* BILIDIR <0.1 <0.1 <0.1 ALBUMIN 2.6* 3.0* 3.0* ALKPHOS 49 52 57 ALT 9 6 8 AST 9 7 12 Coags: No results for input(s): PT, INR, PTT, FIBRINOGEN, DDIMER in the last 168 hours. Invalid input(s): THROMBIN TIME No results for input(s): INR in the last 168 hours. Cardiac enzymes: No results for input(s): TROPONINT, CK, PROBNP in the last 7068 hours. Endocrine: No results for input(s): TSH, CORTISOL in the last 7068 hours. Invalid input(s): [id number] No results for input(s): HA1C in the last 7068 hours. Lipids: Heme: No results for input(s): LDH, HAPTOGLOBIN, URICACID in the last 168 hours. ABG (Arterial Blood Gas): No results found for: PHART, PO2ART, UBH5EUF, QHY6ZNZ VBG (Venous Blood Gas): No results for input(s): PHVEN, YWV7SHF, PO2VEN, QBX0RXV, BEVEN, SDP1CLS in the last 72 hours. EKG: No results found for: DIAGLINE, QTCCALC Vascular: No results found for: VBTEXTRPT Microbiology: No results found for: URINECULTURE No results found for: GRAMSTAIN, BFCX, LOWERRESPCX, TISSUECX No results found for: BLOODCX Imaging/Diagnostics: No results found for this visit on 08/09/22 (from the past 48 hour(s)). Medications: Scheduled: ??? ferrous sulfate EC 325 mg Oral Every Other Day ??? enoxaparin 40 mg Subcutaneous Daily ??? OXcarbazepine 1,050 mg Oral Q24H ??? pantoprazole EC 40 mg Oral Daily ??? sodium chloride 0.9 % (flush) 5 mL Intravenous BID ??? hydrocortisone sodium succinate 100 mg Intravenous Q8H RAFI Continuous: PRN: diphenhydrAMINE, sodium chloride 0.9 % (flush), lidocaine, senna-docusate, acetaminophen, ondansetron OR ondansetron ASSESSMENT and PLAN: robert Londono is a 61 y.o. female with hx of ulcerative colitis, benign thyroid nodule, seizure disorder who is admitted for UC flare. 08/12: Stool Calprotectin > 2000. CRP stable but elevated. Stool infectious studies negative. Quantiferon negative. Immune to Hep B. Started IV hydrocortisone 100mg TID on 08/09, and received first infusion of infliximab on 08/11. Overall, UC flare improving clinically. Per GI, since symptoms improving and inflammatory markers downtrending, no plan for additional infliximab infusion inpatient.If remains stable, plan to discharge in the next few days on po steroid taper. Plan: - IV steroids -> consider changing to po regimen tmr and discharge on taper - PO iron qod - PPI and atovaquone #Ulcerative colitis, acute flare - Flex sig 08/07/22 bx at [facility]: chronic moderately active colitis in transverse, descending, sigmoid, and proctitis - current outpt regimen: Entyvio 300mg IV q8 weeks, last received 07/19/22, prednisone 40mg daily - s/p 1 L LR in the ED - Daily CRP: 30 -> 21 -> 44.4 - Fecal lactoferrin positive, fecal calprotectin > 2000 - Ova and parasites neg - C. Diff negative - Stool culture neg - GI consulted and following - solucortef 100mg TID (08/09 - p) - infliximab infusion (08/11) - Continue atovaquone for PJP prophylaxis given fci steroid use - refused lovenox, on SCD ?? #Seizure disorder - continue home trileptal 300mg 3.5 tabs nightly #Housekeeping: DVT PPx: LMWH GI PPx: Pantoprazole 40 mg Diet: Regular diet Lines: Peripheral IV Line - Single Lumen 08/11/22 2013 22 gauge;1 in length (Active) Number of days: 0 D/c planning: Pending medical stabilization Code status: Full code Jenise Tijerina MD Internal Medicine PGY2 Medicine Team: [facility] [id number] Associated attestation - Tyler Esqueda MD - 08/13/2022 8:31 AM EST Attending Attestation Please see Dr. Tijerina's note for details of the patient history of presentation and data. I have discussed, reviewed and agree with the documented History, Physical findings, Assessment and Plan of care. I have examined the patient myself and personally reviewed all studies. In addition, I certify thatI am a D-H credentialed attending provider with admitting privileges and that the patient meets or has met medical necessity to require an inpatient IPI level of care meeting a minimum of two midnights or is on the [facility] inpatient only procedure list (status C) due to: monitoring of fluid status given an inability to regulate fluid balance and the need for administration or restriction of fluids and UC flare. Briefly, this is a 61 year old female admitted with UC flare s/p remicade (08/11/2022), CRP downtrending with some improvements in bowel movements. Continuing IV steroids and started PJP ppx with atovoquone. Appreciate GI team's assistance. Rest as below. Tyler Esqueda MD * Marc Cunningham MD - 08/11/2022 7:46 AM EST Inpatient Hospital Medicine Progress Note Patient Name: ELSA LONDONO Date of : 1960 Age: 61 y.o. Hospital Admit Date: 08/09/2022 Hospital Day: 2 Inpatient Attending: Jeremy Metzger MD PCP: Derrick Mir MD ([phone]) Chief Complaint Patient presents with ??? Abdominal Pain ??? Diarrhea ID: Elsa Londono is a 61 y.o. female with hx of ulcerative colitis, benign thyroid nodule, seizure disorder who is admitted for concern for UC Flare. 24 HOUR EVENTS & SUBJECTIVE: - Yesterday, - Consulted hyperbaric team however, attending is out until Sunday - Stool studies and infectious workup pending - Overnight, - 9pm- after shower, pt reports that she felt dizzy and helped her self to the floor with her arms.No head strike, no injury, exam unremarkable. Patient helped back into bed without more dizziness. - This morning, pt reports: - She is very sleepy this AM because she did not sleep well - States that she is feeling better than admission, denies abdominal pain, N/V - Endorses 2 BM in the last 24 hours, endorses continued hematochezia OBJECTIVE: Vitals: Last value Range last 24 hrs Temperature Temp: 36.5 ??C (97.7 ??F) Temp: [36.5 ??C (97.7 ??F)-36.7 ??C (98.1 ??F)] Heart Rate Heart Rate: 82 Heart Rate: [77-82] Blood Pressure BP: 128/61 BP: (107-149)/(61-81) Art Line BP BP (Arterial Line): -- MAP (NBP): [79 mmHg-101 mmHg] Respiratory Rate Resp: 20 Resp: [16-20] SpO2 SpO2: 96 % SpO2: [96 %-98 %] Oxygen Delivery Oxygen Therapy O2 Device: None (Room air) Intake/Output Summary (Last 24 hours) at 08/11/2022 0746 Last data filed at 08/11/2022 0000 Gross per 24 hour Intake 100 ml Output -- Net 100 ml I/O last 3 completed shifts: In: 100 [P.O.:100] Out: - Body mass index is 24.48 kg/m??. Patient Vitals for the past 168 hrs: Weight 08/09/22 0942 61.7 kg (136 lb) Admit wt: 61.69 kg Physical Exam: GENERAL: Awake, alert, no acute distress HEENT: Anicteric, no conjunctival injection CV: RRR, no murmurs/rubs/gallops, 2+ radial/DP pulses PULM: Normal respiratory effort, CTA with good air entry bilaterally, no rales/rhonchi/wheezes ABDOMEN: Soft, non-tender, non-distended, no masses, no guarding EXTREMITIES: No lower extremity edema. No clubbing or cyanosis PSYCH/NEURO: Appropriate affect and cognition SKIN: Warm, dry, no rashes LABS: CBC: Recent Labs 08/11/22 0709 08/10/22 1210 08/10/22 0116 08/09/22 1046 WBC 8.2 -- 10.8* 8.8 HGB 7.4* 7.8* 7.4* 8.6* HCT 22.3* 23.0* 22.4* 26.1* PLATELET 575* -- 507* 665* NEUTROABS 5.17 -- 8.90* 6.87* Chemistry: Recent Labs 08/10/22 0116 08/09/22 1046 NA 130* 131* K 3.6 3.6 CL 95* 93* CO2 24 27 BUN 6* 9 CREATININE 0.59* 0.73 GLUCOSE 119 122 ANIONGAP 11 11 Recent Labs 08/10/22 0116 08/09/22 1046 CALCIUM 7.8* 8.8 LFT's: Recent Labs 08/10/22 0116 08/09/22 1046 BILITOT <0.2* <0.2* BILIDIR <0.1 <0.1 ALBUMIN 3.0* 3.1* ALKPHOS 57 65 ALT 8 12 AST 12 13 Coags: No results for input(s): PT, INR, PTT, FIBRINOGEN, DDIMER in the last 168 hours. Invalid input(s): THROMBIN TIME No results for input(s): INR in the last 168 hours. Cardiac enzymes: No results for input(s): TROPONINT, CK, PROBNP in the last 7068 hours. Endocrine: No results for input(s): TSH, CORTISOL in the last 7068 hours. Invalid input(s): [id number] No results for input(s): HA1C in the last 7068 hours. Lipids: Heme: No results for input(s): LDH, HAPTOGLOBIN, URICACID in the last 168 hours. ABG (Arterial Blood Gas): No results found for: PHART, PO2ART, ZVN6LTF, UTX4IRN VBG (Venous Blood Gas): No results for input(s): PHVEN, BZW7RMO, PO2VEN, FHM9QET, BEVEN, RRL3JYO in the last 72 hours. EKG: No results found for: DIAGLINE, QTCCALC Vascular: No results found for: VBTEXTRPT Microbiology: No results found for: URINECULTURE No results found for: GRAMSTAIN, BFCX, LOWERRESPCX, TISSUECX No results found for: BLOODCX Imaging/Diagnostics: Results for orders placed or performed during the hospital encounter of 08/09/22 (from the past 48 hour(s)) CT Abdomen & Pelvis w Contrast (Exam End: 08/09/2022 12:54 PM) Impression Descending and rectosigmoid colitis. No abscess nor perforation. Thank you for letting us participate in the care of this patient. If you are a health care provider and have any questions regarding this report, please contact the number below. For patients who have questions please contact the health home care administrator that requested your imaging first. Electronically signed by: Kiara Chance MD, [facility] ([phone]), at 08/09/2022 1:09 PM Medications: Scheduled: ??? enoxaparin 40 mg Subcutaneous Daily ??? OXcarbazepine 1,050 mg Oral Q24H ??? pantoprazole EC 40 mg Oral Daily ??? sodium chloride 0.9 % (flush) 5 mL Intravenous BID ??? hydrocortisone sodium succinate 100 mg Intravenous Q8H RAFI Continuous: PRN: sodium chloride 0.9 % (flush), lidocaine, senna-docusate, acetaminophen, ondansetron OR ondansetron ASSESSMENT and PLAN: robert Londono is a 61 y.o. female with hx of ulcerative colitis, benign thyroid nodule, seizure disorder who is admitted for hematochezia, weight loss, and fatigue. ?? Patient's clinical manifestation is suggestive of UC flare with suboptimal response to output therapy. Patient has been receiving IV hydrocortisone 100 mg tid, and despite subjective improvement, patient continues to have hematochezia. We will attempt to start remicade infusion while patient is here in the hospital. We have ordered stool studies and will follow up on those labs, but suspect that the primary reasonfor the increased stool output is her underlying UC. [facility], but per staff, the attending will not be back in the hospital until Sunday [facility]. Iron studies demonstrated iron deficiency anemia, patient was unable to tolerate iron infusion. We will start PO supplementation here in the hospital. We will also start PPI and PJP prophylaxis given fci use of steroids. Plan: - Possible remicade infusion - IV steroids - PO iron qod - PPI and atovaquone #Ulcerative colitis, acute flare - Flex sig 08/07/22 bx at [facility]: chronic moderately active colitis in transverse, descending, sigmoid, and proctitis - current outpt regimen: Entyvio 300mg IV q8 weeks, last received 07/19/22, prednisone 40mg daily - s/p 1 L LR in the ED - Daily CRP: 30 -> 21 -> 44.4 - Fecal lactoferrin positive, fecal calprotectin > 2000 - f/u ova and parasites - C. 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 #Seizure disorder - continue home trileptal 300mg 3.5 tabs nightly #Housekeeping: DVT PPx: LMWH GI PPx: Pantoprazole 40 mg Diet: Regular diet Lines: Peripheral IV Line - Single Lumen 08/10/22 1855 median cubital vein (antecubital fossa), left 20 gauge (Active) Number of days: 0 D/c planning: Pending medical stabilization Code status: Full code Marc Cunningham MD Internal Medicine PGY1 Medicine Team: Green, [id number] Associated attestation - Jeremy Metzger MD - 08/11/2022 6:07 PM EST I certify that the patient requires: [X] inpatient care status due to I have examined the patient myself on 08/10/2022 and reviewed all labs and studies personally. Appreciate GI guidance for UC flaire Please see Dr. Mendez's documentation for details of the patient history of presentation and data. I have discussed, reviewed and agree with the documented history with ROS, physical findings, labs/studies, assessment and plan of care. * Nadia Orellana MD - 08/11/2022 6:42 AM EST GASTROENTEROLOGY & HEPATOLOGY INPATIENT PROGRESS NOTE ID: Elsa Londono 61 y.o./ w/ PMH of panulcerative colitis adm with worsening bloody diarrhea concerning for flare. Interval History: --HDS, afebrile --CRP 30.4-->21-->44 --no BM recorded overnight, but patient has been passing a lot of blood without stool. No abdominalpain/distention --Iron studies c/w CHRISTEL --pending stool culture, Cdiff neg; calprotectin>2000 --IV iron started yesterday but stopped due to site reaction. Started on oral iron Active Hospital Problem List Patient Active Problem List Diagnosis Code ??? 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 Ulcerative colitis K51.90 Scheduled Meds: ??? enoxaparin 40 mg Subcutaneous Daily ??? OXcarbazepine 1,050 mg Oral Q24H ??? iron sucrose 300 mg Intravenous Once ??? pantoprazole EC 40 mg Oral Daily ??? sodium chloride 0.9 % (flush) 5 mL Intravenous BID ??? hydrocortisone sodium succinate 100 mg Intravenous Q8H RAFI Continuous Infusions: PRN Meds:.sodium chloride 0.9 % (flush), lidocaine, senna-docusate, acetaminophen, ondansetron OR ondansetron Physical Examination Vitals: 08/09/22 0942 08/09/22 2022 08/10/22 0331 08/10/22 0817 BP: 126/83 153/86 122/61 132/72 BP Location (NBP): Left arm Right arm Left arm Left arm Patient Position: Sitting Lying Lying Lying Pulse: 89 87 77 Resp: 16 18 18 16 Temp: 36.8 ??C (98.3 ??F) 37.4 ??C (99.3 ??F) 36.6 ??C (97.8 ??F) TempSrc: Temporal Oral Oral SpO2: 99% 99% 98% 97% Weight: 61.7 kg (136 lb) Height: 158.8 cm (5' 2.5) PHYSICAL EXAM CONST: Awake, alert, no acute distress HEENT: sclerae anicteric RESP: normal RR CARDIAC: RRR GI: abdomen soft, mild tenderness throughout without rebound or guarding, non-distended, MSK: legs warm, palpable pulses b/l, no significant edema SKIN: No jaundice, rash, or bruising NEURO: Grossly intact, moves all extremities PSYCH: Pleasant, appropriate affect Pertinent Recent labs CBC Lab Results Component Value Date WBC 10.8 (H) 08/10/2022 Hemoglobin 7.8 (L) 08/10/2022 Hematocrit 23.0 (L) 08/10/2022 Platelets 507 (H) 08/10/2022 Lab Results Component Value Date Sodium 130 (L) 08/10/2022 Potassium 3.6 08/10/2022 Chloride 95 (L) 08/10/2022 CO2 24 08/10/2022 BUN 6 (L) 08/10/2022 Creatinine 0.59 (L) 08/10/2022 Glucose Lvl 119 08/10/2022 LFT's Lab Results Component Value Date Alk Phos 57 08/10/2022 AST 12 08/10/2022 Albumin 3.0 (L) 08/10/2022 Bili, Direct <0.1 08/10/2022 Total Bilirubin <0.2 (L) 08/10/2022 ALT 8 08/10/2022 Total Protein 5.1 (L) 08/10/2022 Pertinent Endoscopic Procedures/Reports: Reviewed Pertinent Recent Imagin08/09/22 CT A/P IMPRESSION ?? Descending and rectosigmoid colitis. No abscess nor perforation. ASSESSMENT & PLAN: Elsa Londono 61 y.o./ w/ PMH of panulcerative colitis adm with worsening bloody diarrhea concerning for flare. Underwent a flexible sigmoidoscopy with her outpatient GI on 08/03/22, and pathology showed chronic,moderately active colitis from rectum to transverse colon, negative for dysplasia, negative for CMV, without improvement on oral steroids and now with rising CRP despite 5 doses IVCS. While this is still early in typical trial for IVCS, because she has as rising CRP with active bleeding, severe iron deficiency, would elect for early rescue therapy with Remicade. This has already been discussed with patient in clinic and on admission as her next biologic agent to start as an outpatient, which she is in agreement with. We will initiate rescue dosing today. Would benefit from HBOT sessions, but this is not available until next Sunday. If Elsa improves and is discharged, would plan to continueRemicade as outpatient. ?? Recommendations: - Remicade 10mg/kg x1 (08/11/22) - continue IV Hydrocortisone 100mg TID (pm 08/09-) - f/up stool culture - daily CRP - IV hydration - PUD ppx with PPI daily - PCP ppx - strict BM monitoring, serial abdominal exams - HBV immune; Quant gold negative - continue DVT ppx - Hyperbaric Team consult when available - serial abdominal exams - avoid opiates and NSAIDs This case was discussed with Dr. Esteban Villarreal M.D. Fellow in Gastroenterology and Hepatology Pager #[phone] 08/10/2022 Attending Addendum: I interviewed and examined the patient with Dr. Villarreal on rounds. I confirm the history and castro physical findings outlined in this note. The assessment and plan were formulated in discussion with me atthe time of this encounter, and I agree with them as documented. Nadia Orellana MD Gastroenterology and hepatology Pager: [phone] * Marc Cunningham MD - 08/10/2022 7:19 AM EST Inpatient Hospital Medicine Progress Note Patient Name: ELSA LONDONO Date of : 1960 Age: 61 y.o. Hospital Admit Date: 08/09/2022 Hospital Day: 1 Inpatient Attending: Jeremy Metzger MD PCP: None (None) Chief Complaint Patient presents with ??? Abdominal Pain ??? Diarrhea ID: Elsa Londono is a 61 y.o. female with hx of ulcerative colitis, benign thyroid nodule, seizure disorder who is admitted for concern for UC Flare. 24 HOUR EVENTS & SUBJECTIVE: - Yesterday, - Admitted for possible UC flare - GI consulted: start TID steroids, stool studies and daily CRP, Hep B and TB, and hyperbaric team - Overnight, - 19:19 - per GI no plan for flex sig, had a recent one - This morning, pt reports: - Patient reports she has been having nocturnal BMs (~3 per night) since April and endorses daily BM of 8-9 episodes. - Patient states that she did not have a BM overnight last night, and also states that she did not have a BM this morning as she has been NPO. - Denies other acute complaints. OBJECTIVE: Vitals: Last value Range last 24 hrs Temperature Temp: 36.6 ??C (97.8 ??F) Temp: [36.6 ??C (97.8 ??F)-37.4 ??C (99.3 ??F)] Heart Rate Heart Rate: 77 Heart Rate: [77-87] Blood Pressure BP: 132/72 BP: (122-153)/(61-86) Art Line BP BP (Arterial Line): -- MAP (NBP): -- Respiratory Rate Resp: 16 Resp: [16-18] SpO2 SpO2: 97 % SpO2: [97 %-99 %] Oxygen Delivery Oxygen Therapy O2 Device: None (Room air) Intake/Output Summary (Last 24 hours) at 08/10/2022 1429 Last data filed at 08/09/2022 1738 Gross per 24 hour Intake 1000 ml Output -- Net 1000 ml I/O last 3 completed shifts: In: 1000 [I.V.:1000] Out: - Body mass index is 24.48 kg/m??. Patient Vitals for the past 168 hrs: Weight 08/09/22 0942 61.7 kg (136 lb) Admit wt: 61.69 kg Physical Exam: GENERAL: Awake, alert, no acute distress HEENT: Anicteric, no conjunctival injection CV: RRR, no murmurs/rubs/gallops, 2+ radial/DP pulses PULM: Normal respiratory effort, CTA with good air entry bilaterally, no rales/rhonchi/wheezes ABDOMEN: Soft, non-tender, non-distended, no masses, no guarding EXTREMITIES: No lower extremity edema. No clubbing or cyanosis PSYCH/NEURO: Appropriate affect and cognition SKIN: Warm, dry, no rashes LABS: CBC: Recent Labs 08/10/22 1210 08/10/22 0116 08/09/22 1046 WBC -- 10.8* 8.8 HGB 7.8* 7.4* 8.6* HCT 23.0* 22.4* 26.1* PLATELET -- 507* 665* NEUTROABS -- 8.90* 6.87* Chemistry: Recent Labs 08/10/22 0116 08/09/22 1046 NA 130* 131* K 3.6 3.6 CL 95* 93* CO2 24 27 BUN 6* 9 CREATININE 0.59* 0.73 GLUCOSE 119 122 ANIONGAP 11 11 Recent Labs 08/10/22 0116 08/09/22 1046 CALCIUM 7.8* 8.8 LFT's: Recent Labs 08/10/22 0116 08/09/22 1046 BILITOT <0.2* <0.2* BILIDIR <0.1 <0.1 ALBUMIN 3.0* 3.1* ALKPHOS 57 65 ALT 8 12 AST 12 13 Coags: No results for input(s): PT, INR, PTT, FIBRINOGEN, DDIMER in the last 168 hours. Invalid input(s): THROMBIN TIME No results for input(s): INR in the last 168 hours. Cardiac enzymes: No results for input(s): TROPONINT, CK, PROBNP in the last 7068 hours. Endocrine: No results for input(s): TSH, CORTISOL in the last 7068 hours. Invalid input(s): [id number] No results for input(s): HA1C in the last 7068 hours. Lipids: Heme: No results for input(s): LDH, HAPTOGLOBIN, URICACID in the last 168 hours. ABG (Arterial Blood Gas): No results found for: PHART, PO2ART, JZH6OPM, EYC4HLI VBG (Venous Blood Gas): No results for input(s): PHVEN, YRW7BXI, PO2VEN, VMA2MMZ, BEVEN, FZX3HKD in the last 72 hours. EKG: No results found for: DIAGLINE, QTCCALC Vascular: No results found for: VBTEXTRPT Microbiology: No results found for: URINECULTURE No results found for: GRAMSTAIN, BFCX, LOWERRESPCX, TISSUECX No results found for: BLOODCX Imaging/Diagnostics: Results for orders placed or performed during the hospital encounter of 08/09/22 (from the past 48 hour(s)) CT Abdomen & Pelvis w Contrast (Exam End: 08/09/2022 12:54 PM) Impression Descending and rectosigmoid colitis. No abscess nor perforation. Thank you for letting us participate in the care of this patient. If you are a health care provider and have any questions regarding this report, please contact the number below. For patients who have questions please contact the health home care administrator that requested your imaging first. Medications: Scheduled: ??? enoxaparin 40 mg Subcutaneous Daily ??? OXcarbazepine 1,050 mg Oral Q24H ??? iron sucrose 300 mg Intravenous Once ??? pantoprazole EC 40 mg Oral Daily ??? sodium chloride 0.9 % (flush) 5 mL Intravenous BID ??? hydrocortisone sodium succinate 100 mg Intravenous Q8H RAFI Continuous: PRN: sodium chloride 0.9 % (flush), lidocaine, senna-docusate, acetaminophen, ondansetron OR ondansetron ASSESSMENT and PLAN: robert Londono is a 61 y.o. female with hx of ulcerative colitis, benign thyroid nodule, seizure disorder who is admitted for hematochezia, weight loss, and fatigue. ?? Patient's clinical manifestation is suggestive of UC flare with suboptimal response to output therapy. Patient has been started in IV hydrocortisone 100 mg tid and reports improvement in symptoms despite continued hematochezia. We have ordered stool studies and will follow up on those labs, but suspect that the primary reason for the increased stool output is her underlying UC. We have reached out to hyperbaric medicine for possible consult, but per staff, the attending will not be back in the hospital until Sunday and we will follow up with hyperbaric at that time. Iron studies demonstrated iron deficiency anemia, for which we will order IV iron 300 mg once with goals of transitioning to PO iron at a later time. #Ulcerative colitis, acute flare - Flex sig 08/07/[address] [facility]: chronic moderately active colitis in transverse, descending, sigmoid, and proctitis - current outpt regimen: Entyvio 300mg IV q8 weeks, last received 07/19/22, prednisone 40mg daily - s/p 1 L LR in the ED - Daily CRP: 30 -> 21 - Fecal lactoferrin positive, fecal calprotectin > 2000 - f/u ova and parasites - f/u C. 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 #Seizure disorder - continue home trileptal 300mg 3.5 tabs nightly #Housekeeping: DVT PPx: LMWH GI PPx: Pantoprazole 40 mg Diet: Regular diet Lines: Peripheral IV Line - Single Lumen 08/09/22 1045 median cubital vein (antecubital fossa), right 20 gauge;1 in length (Active) Number of days: 1 D/c planning: Pending medical stabilization Code status: Full code Marc Cunningham MD Internal Medicine PGY1 Medicine Team: [facility]ango [id number] Associated attestation - Jeremy Metzger MD - 08/10/2022 5:24 PM EST Attending Staff Progress Documentation I certify that the patient requires: [X] inpatient care status due to I have examined the patient myself on 08/10/2022 and reviewed all labs and studies personally. Please see Dr. Mendez's documentation for details of the patient history of presentation and data. I have discussed, reviewed and agree with the documented history with ROS, physical findings, labs/studies, assessment and plan of care. * Nadia Orellana MD - 08/10/2022 6:15 AM EST GASTROENTEROLOGY & HEPATOLOGY INPATIENT PROGRESS NOTE ID:Elsa Londono 61 y.o./ w/ PMH of panulcerative colitis adm with worsening bloody diarrhea concerning for flare. Interval History: --HDS, afebrile --CRP 30.4-->21 --no BM recorded overnight --Iron studies c/w CHRISTEL --pending stool studies --already feeling much better on two doses IVCS. No abdominal pain, although still having mostly bloody output, no stool since admission. No F/chills. Thinks she could try to eat. -had deferred DVT ppx, counseled on importance of this inpatient Active Hospital Problem List Patient Active Problem List Diagnosis Code ??? 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 Ulcerative colitis K51.90 Scheduled Meds: ??? OXcarbazepine 1,050 mg Oral Nightly ??? sodium chloride 0.9 % (flush) 5 mL Intravenous BID ??? hydrocortisone sodium succinate 100 mg Intravenous Q8H RAFI Continuous Infusions: ??? lactated Ringers 100 mL/hr (08/09/22 1903) PRN Meds:.sodium chloride 0.9 % (flush), lidocaine, senna-docusate, acetaminophen, ondansetron OR ondansetron Physical Examination Vitals: 08/09/22 0942 BP: 126/83 BP Location (NBP): Left arm Patient Position: Sitting Pulse: 89 Resp: 16 Temp: 36.8 ??C (98.3 ??F) TempSrc: Temporal SpO2: 99% Weight: 61.7 kg (136 lb) Height: 158.8 cm (5' 2.5) PHYSICAL EXAM CONST: Awake, alert, no acute distress HEENT: sclerae anicteric RESP: normal RR CARDIAC: RRR GI: abdomen soft, mild tenderness throughout without rebound or guarding, non-distended, MSK: legs warm, palpable pulses b/l, no significant edema SKIN: No jaundice, rash, or bruising NEURO: Grossly intact, moves all extremities PSYCH: Pleasant, appropriate affect Pertinent Recent labs CBC Lab Results Component Value Date WBC 8.8 08/09/2022 Hemoglobin 8.6 (L) 08/09/2022 Hematocrit 26.1 (L) 08/09/2022 Platelets 665 (H) 08/09/2022 Lab Results Component Value Date Sodium 131 (L) 08/09/2022 Potassium 3.6 08/09/2022 Chloride 93 (L) 08/09/2022 CO2 27 08/09/2022 BUN 9 08/09/2022 Creatinine 0.73 08/09/2022 Glucose Lvl 122 08/09/2022 LFT's Lab Results Component Value Date Alk Phos 65 08/09/2022 AST 13 08/09/2022 Albumin 3.1 (L) 08/09/2022 Bili, Direct <0.1 08/09/2022 Total Bilirubin <0.2 (L) 08/09/2022 ALT 12 08/09/2022 Total Protein 5.8 (L) 08/09/2022 Pertinent Endoscopic Procedures/Reports: Reviewed Pertinent Recent Imagin08/09/22 CT A/P IMPRESSION ?? Descending and rectosigmoid colitis. No abscess nor perforation. ASSESSMENT & PLAN: Elsa Londono 61 y.o./ w/ PMH of panulcerative colitis adm with worsening bloody diarrhea concerning for flare. Underwent a flexible sigmoidoscopy with her outpatient GI on 08/03/22, and pathology showed chronic,moderately active colitis from rectum to transverse colon, negative for dysplasia, negative for CMV, without improvement on oral steroids. Will monitor very closely over next 24-48 hours for improvement with IVCS, while following up stool studies. If she does not improve in this window and infectious w/up is negative, would proceed with rescue Remicade. Would benefit from HBOT sessions, can initiate if there is availability. ?? Recommendations: - continue IV Hydrocortisone 100mg TID (pm 08/09-) - consider IV iron - f/up c diff, culture, O&P - daily CRP - IV hydration - PUD ppx with PPI daily - PCP ppx with atovaquone - strict BM monitoring - f/up Hepatitis B serologies (HBSAg, HBsAb, HBcAb) and quantiferon gold - will monitor for need for Remicade - please start DVT ppx - pls consult hyperbaric team in the AM - serial abdominal exams - avoid opiates and NSAIDs This case was discussed with Dr. Esteban Villarreal M.D. Fellow in Gastroenterology and Hepatology Pager #[phone] 08/09/2022 Attending Addendum: I interviewed and examined the patient with Dr. Villarreal. I confirm the history and castro physical findings outlined in this note. The assessment and plan were formulated in discussion with me at the time of this encounter, and I agree with them as documented. Nadia Orellana MD Gastroenterology and hepatology Pager: [phone] documented in this encounter H&P Notes * Jenise Tijerina MD - 08/09/2022 2:31 PM EST Images from the original note were not included. Hospital Medicine Admission History and Physical Patient Name: ELSA LONDONO Date of : 1960 Age: 61 y.o. Hospital Admit Date: 08/09/2022 Inpatient Attending: Jeremy Metzger MD PCP: None Presenting Diagnosis/Chief Complaint: UC flare History of Present Illness: Elsa Londono is a 61 y.o. female with hx of ulcerative colitis, benign thyroid nodule, seizure disorder who is admitted for concern for UC Flare. UC disease timeline per care everywhere: - Dx at age [age] year old - 03/2019: Canasa 1000mg BID + Asacol 400mg BID -> had extension of disease - Started Lialda 2.4g daily -> but calprotectin increased 101 to 151 -> Liala incrased to 4.8g daily - colonoscopy 07/2021 for infrequent hematochezia, more frequent diarrhea, Biopsies were normal in the cecum, ascending, transverse, descending, with minimal activity in the sigmoid, moderate active colitis in the sigmoid and mild proctitis. - 04/2022 office visit: - developed symptoms of a flare - calprotecton 932 - developed rash on high dose of Lialda so stopped - C. Diff ruled out - 6-MP trial led to worsening of abd pain so stopped - budesonide 9mg for 3 week -> caused rash on hands and did not improve GI symptoms - got 2 doses of Twinrix (second dose on 05/26/22) - started on prednisone 20mg while pending prior auth for vedolizumab -> noted improvement of pain and stool frequency - prenidsone incrased to 40mg on 06/16/22 - vedolizumab (Entyvio) approved 06/2022 - 08/01/22 office visit - complained of continued diarrhea, rectal bleeding, and abd pain, using 3 imodium tablets daily, no fevers, urgency after eating, lost about 10 Ibs in last several weeks - first Entyvio infusion 07/05/22, second and most recent Entyvio infusion 07/19/22 -> developed rash on abd and back - Calprotectin 07/28/22 was 119 - plan for flex sig in 2 days, consider Stelara infusion - 08/07/22 dermatology visit - punch bx to determine whether maculopapular rash on back and posteiror lower extremities was a drug reaction to Entyvio or a dermatologic manifestation of her UC, result pending - 08/07/22 colonoscopy (see bx results below) A. COLON, TRANSVERSE, BIOPSY: - Chronic moderately active colitis. See comment. - Negative for dysplasia. B. COLON, DESCENDING, BIOPSY: - Chronic mildly active colitis. See comment. - Negative for dysplasia. C. COLON, SIGMOID, BIOPSY: - Chronic mildly active colitis. See comment. - Negative for dysplasia. D. RECTUM, BIOPSY: - Chronic moderately active proctitis. See comment. - Negative for dysplasia. Histologic sections show chronic active colitis consistent with the patient's history of ulcerativecolitis. There is no evidence of CMV on H&E sections. On interview today, patient reports being sick since 04/2022. Reports 23 Ibs weight loss since 05/2022. Currently reports about 8 stools daily with nighttime incontinence. Describes stools as bright red blood appearing. Associated with bilateral lower abdominal quadrant pain and dizziness. Denies fever, chills, nighsweats. Reports since the Entyvio infusion in the beginning of June, feels thather GI symptoms are a bit better, however, has felt more fatigue with loss of appetite. Denies n/v.Reports tries to eat as much as possible (scramble eggs, salads) and drink water. Reports her rash after the Entyvio infusion has been improving wo intervention. Skin bx result still pending. Denies smoking hx. Denies prior episodes of similar flares. Currently takes prednisone 40mg daily. In the ED, afebrile, HR 89, BP 126/83, satting well on RA. Got 1L LR. C. Diff ordered. Ova and parasite ordered. Stool culture ordered. Hgb 8.6, MCV 87.6, Platelets 665, Na 131, Lactate 1. CT A/P w contrast showed descending and rectosigmoid colitis. No abscess or perforation. Review of Systems(Positives in Bold): See HPI Past Medical History: No past medical history on file. Patient Active Problem List Diagnosis Code ??? 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 Ulcerative colitis K51.90 Past Surgical History: No past surgical history on file. Social History: Social History Socioeconomic History ??? Marital status: Spouse name: Not on file ??? Number of children: Not on file ??? Years of education: Not on file ??? Highest education level: Not on file Occupational History ??? Not on file Tobacco Use ??? Smoking status: Former Types: Cigarettes Quit date: 03/23/2003 Years since quittin.3 ??? Smokeless tobacco: Never Substance and Sexual Activity ??? Alcohol use: Not on file ??? Drug use: Not on file ??? Sexual activity: Not on file Other Topics Concern ??? Not on file Social History Narrative ??? Not on file Social Determinants of Health Financial Resource Strain: Not on file Food Insecurity: Not on file Transportation Needs: Not on file Physical Activity: Not on file Housing Stability: Not on file Family History: No family history on file. Denies FH of UC. Allergies: Allergies Allergen Reactions ??? Sulfa (Sulfonamide Antibiotics) Hives Medications: (Not in a hospital admission) PHYSICAL EXAM: Last value Range last 24 hrs Temperature Temp: 36.8 ??C (98.3 ??F) Temp: [36.8 ??C (98.3 ??F)] Heart Rate Heart Rate: 89 Heart Rate: [89] Blood Pressure BP: 126/83 BP: (126)/(83) Respiratory Rate Resp: 16 Resp: [16] SpO2 SpO2: 99 % SpO2: [99 %] No intake/output data recorded. Gen: Alert & oriented x3, NAD HEENT: Eyes: EOMI, no conjunctival injection, no icterus CV: Regular rate and rhythm, Pulm: Normal respiratory effort, CTA with good air entery bilaterally Abd: Non-distended, normal active bowel sounds, soft,tender to palpation at bilateral lower quadrants Ext: No pedal edema Neuro: Grossly intact, moving all four extremities. Skin: Warm, dry, resolving rashes on back Lymph: no obvious lymphadenopathy LABS: Recent Labs 08/09/22 1046 WBC 8.8 HGB 8.6* HCT 26.1* PLATELET 665* Recent Labs 08/09/22 1046 NA 131* K 3.6 CL 93* CO2 27 BUN 9 CREATININE 0.73 Recent Labs 08/09/22 1046 CALCIUM 8.8 No results for input(s): PT, PTT, FIBRINOGEN, DDIMER in the last 168 hours. Invalid input(s): THROMBIN TIME No results for input(s): INR in the last 168 hours. Recent Labs 08/09/22 1046 AST 13 ALT 12 ALKPHOS 65 BILITOT <0.2* BILIDIR <0.1 No results for input(s): CK, TROPONINT in the last 168 hours. No results for input(s): LDH, URICACID in the last 168 hours. No results for input(s): TSH in the last 7068 hours. No results for input(s): HA1C in the last 7068 hours. Microbiology Results (Last 30 days) No results found for the last 720 hours. Imaging/Diagnostics: Results for orders placed or performed during the hospital encounter of 08/09/22 CT Abdomen & Pelvis w Contrast (Exam End: 08/09/2022 12:54 PM) Impression Descending and rectosigmoid colitis. No abscess nor perforation. Thank you for letting us participate in the care of this patient. If you are a health care provider and have any questions regarding this report, please contact the number below. For patients who have questions please contact the health home care administrator that requested your imaging first. Electronically signed by: Kiara Chance MD, [facility] ([phone]), at 08/09/2022 1:09 PM ASSESSMENT and PLAN: Elsa Londono is a 61 y.o. female with hx of ulcerative colitis, benign thyroid nodule, seizure disorder who is admitted for hematochezia, weight loss, and fatigue. Patient's clinical manifestation is suggestive of UC flare with suboptimal response to output therapy. Recently started on Evtyvio infusions and prednisone 40mg daily. However, course after infusion was c/b maculopapular rash and worsening fatigue. Currently HDS. Will r/o infectious causes of hematochezia and f/u GI recs for further management. #Ulcerative colitis, acute flare - Flex sig 08/07/22 bx at [facility]: chronic moderately active colitis in transverse, descending, sigmoid, and proctitis - current outpt regimen: Entyvio 300mg IV q8 weeks, last received 07/19/22, prednisone 40mg daily - s/p 1 L LR in the ED - f/u ESR and CRP - f/u fecal lactoferrin, stool calprotectin - f/u ova and parasites - f/u C. Diff - f/u Stool culture - GI consulted, appreciate recs - solucortef 100mg TID (08/09 - p) - mIVF 100ml/hr for 10h - NPO midnight, plan for repeat flex sig tmr #Seizure disorder - continue home trileptal 300mg 3.5 tabs nightly PCP info Aria Thompson MD (2017April 2017 - Present) [address], [place] [id number] [place] [id number] #Housekeeping: - DVT PPx: SCDs due to hematochezia - Diet: Clear Liquid - Level of care: Med/Surg - Vitals: q6h while awake - Code Satus: Full Jenise Tijerina MD Internal Medicine PGY2 Green Team, Pager [phone] Associated attestation - Jeremy Metzger MD - 08/10/2022 5:23 PM EST Attending Staff Admission Documentation I certify that the patient requires: [X] inpatient care status due to I have examined the patient myself on 08/10/2022 and reviewed all labs and studies personally. Appreciate GI guidance. Will need hydrocortisone Please see Dr. Mendez's documentation for details of the patient history of presentation and data. I have discussed, reviewed and agree with the documented history with ROS, physical findings, labs/studies, assessment and plan of care. documented in this encounter ED Notes * Ro Mccann RN - 08/10/2022 8:19 PM EST Transpo here for pt. * Ro Mccann RN - 08/10/2022 7:17 PM EST Assumed care form WEN Harvey. Introduced self/role to pt, completed assessment, obtained VS. Pt is A/OX4 and reporting diffuse epigastric abd pain that is 2.10, pt states I think I ate too much. Pt denies other complaints at this time such as dizziness, nausea, or lightheadedness. Pt's skin warm and dry, pt alert and conversational. Bed locked and in lowest position. * Candice Kee RN - 08/10/2022 5:35 PM EST Pt reported stinging/burning sensation in right arm after initiation of iron infusion. Infusion rate decreased by half, but stinging/burning persisted. Stopped infusion and flush IV/SW. No evidence of phlebitis noted at this time, IV/SW flushes easily, no swelling or redness at site. Will notify MD. * Iris Barrow RN - 08/09/2022 7:07 PM EST Pt placed into hospital bed into a position of comfort. NAD noted. Pt provided with chicken broth per clear liquids order. Spouse at the bedside. * Sahra Neville RN - 08/09/2022 1:32 PM EST Pt requesting something to eat- stated ok to eat at this time. Pt's provided soup. * Sahra Neville RN - 08/09/2022 1:04 PM EST Pt to and from CT. * Basil De La Rosa MD - 08/09/2022 12:36 PM EST ED Attending Note 61-year-old female with history of ulcerative colitis presenting with abdominal pain, hematochezia,poor p.o. intake, lightheadedness. Patient states that she has been dealing with a ulcerative colitis flare since April. Patient states that during this time she has had worsening abdominal pain.patient states that she was being evaluated and treated by her vp [employer] with courses of st eroids as well as a new biologic agent. Patient states that, diarrhea, and hematochezia was initially feeling a little better however has worsened over the last week. Patient states difficulty tolerating p.o. Patient states that she has approximately 8 bright red bloody bowel movements daily. Patient is now starting to feel fatigued and lightheaded. Patient Dors is pain diffusely across her abdomen. Patient denies any fevers, chills, cough, chest pain, shortness of breath. Patient states that she was referred here by her vp [employer] for admission for further GI evaluation and treatment. Exam is with alert and oriented 61-year-old female. No acute distress. Heart is regular rate and rh ythm, clear bilateral breath sounds. Abdomen is soft however diffusely tender to deep palpation. Sofar CBC is showing anemia at 8.6. The only available prior that I am able to find is through care everywhere from several months ago which was 12.8. Patient symptoms likely related to continued ulcerative colitis flare. We will check basic labs and get CT imaging to evaluate for complications related to the flare as well as other potential intra-abdominal processes. IV fluids. Patient will likelyneed admission. ED Course as of 08/09/22 1437 SunAug 09, 2022 1410 Medicine team request ED GI consultation. GI paged. [phone] GI consulted. They agree with admission. They have requested additional stool studies and a CRP which I have ordered. Will admit to medicine. Basil De La Rosa MD 08/09/22 1437 * Sahra Neville RN - 08/09/2022 11:45 AM EST Lactate not sent when initially drawn, pt made aware that this RN will repeat. Drawn and resulted, WNL. * Sahra Neville RN - 08/09/2022 10:30 AM EST MD at bedside to assess patient. Questioned patient on need for pain medication at this time and ptrefused. documented in this encounter Miscellaneous Notes * ED Procedure Note - Demetris Quintana RN - 08/13/2022 6:51 PM EST Pt is refusing new IV stating I'm not getting anything IV and I think my veins need a break. If I was getting anything IV I absolutely would get another one. Pt's RN Madny notified. * Plan of Care - Rand Salgado RN - 08/12/2022 3:19 PM EST OUTCOME EVALUATION NOTE: OUTCOME SUMMARY: Patient reports feeling much better today, appears in good spirits. Visitors at bedside throughout day shift. Continuing to track frequency of bowel movements, patient reports they are improving inappearance (denies blood) and decreasing in frequency. Please refer to I&O flow sheet. Call leone within reach. PLAN MOVING FORWARD: Continue monitoring BMs for appearance and frequency Monitor SpO2 INDIVIDUALIZED FALL PREVENTION INTERVENTIONS: Patient-specific fall risk factors per assessment: [current deficits]: Independent in room, non-slip shoes utilized Assistance [level of assistance required for transfers and ambulation]: Independent Supervision [direct monitoring required during toileting and ADLs]: Independent per patient Surveillance [continuous indirect monitoring]: Continuous SpO2 Patient-specific fall prevention interventions for sensory deficits provided, if applicable: N/A CARE PLAN GOAL OUTCOME EVALUATION: ongoing monitoring * Plan of Care - Marisol Kaiser RN - 08/11/2022 7:45 AM EST OUTCOME EVALUATION NOTE: OUTCOME SUMMARY: Pt transferred from ED to CSCU. Upon arrival, pt insisted on taking shower. While in shower, pt hada vagal episode and became dizzy. She was able to guide herself onto the floor. Pt did not sustain any injuries and remained oriented with stable vital signs. MD called to bedside and determined thatno interventions were necessary. Pt was educated on light use and asked to have someone with her before ambulating to prevent fall. Bed alarm is set. No reports of chest pain or SOB. See flowsheets for VS & I/Os. IV steroids. Call leone within reach. 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 I/Os discharge planning as appropriate INDIVIDUALIZED FALL PREVENTION INTERVENTIONS: Patient-specific fall risk factors per assessment: [current deficits]: telemetry Assistance [level of assistance required for transfers and ambulation]: IND Supervision [direct monitoring required during toileting and ADLs]: IND Surveillance [continuous indirect monitoring]: Telemetry Call leone within reach Hourly rounding CPG GOAL OUTCOME EVALUATION: ongoing assessment Problem: Adult Inpatient Plan of Care Goal: Plan of Care Review Outcome: Ongoing (Interventions Implemented as Appropriate) Goal: Patient-Specific Goal (Individualized) Outcome: Ongoing (Interventions Implemented as Appropriate) Goal: Absence of Hospital-Acquired Illness or Injury Outcome: Ongoing (Interventions Implemented as Appropriate) Goal: Optimal Comfort and Wellbeing Outcome: Ongoing (Interventions Implemented as Appropriate) Goal: Readiness for Transition of Care Outcome: Ongoing (Interventions Implemented as Appropriate) Problem: Adjustment to Illness (Bowel Disease, Inflammatory) Goal: Optimal Adaptation to Chronic Illness Outcome: Ongoing (Interventions Implemented as Appropriate) Problem: Diarrhea (Bowel Disease, Inflammatory) Goal: Diarrhea Symptom Relief Outcome: Ongoing (Interventions Implemented as Appropriate) Problem: Infection (Bowel Disease, Inflammatory) Goal: Absence of Infection Signs and Symptoms Outcome: Ongoing (Interventions Implemented as Appropriate) Problem: Nutrition Impaired (Bowel Disease, Inflammatory) Goal: Optimal Nutrition Outcome: Ongoing (Interventions Implemented as Appropriate) Problem: Pain (Bowel Disease, Inflammatory) Goal: Acceptable Pain Control Outcome: Ongoing (Interventions Implemented as Appropriate) * Initial Assessments - Louann Perez MSW - 08/10/2022 10:02 AM EST Office of Care Management Initial Assessment KRIS Gore reviewed record and discussed patient with Care Team. Source of Information: Team, bedside nurse, medical record, and Chart Review KRIS Perez Introduced self/reviewed role; services accepted. Reason for Hospitalization: Ulcerative colitis Covid Vaccination Status: 1st, 2nd & booster Last COVID test: Past medical History: No past medical history on file. Hospitalizations Within the Past 30 Days: no previous admission in last 30 days Current Decision-Making Capacity: Self If AD's have not been completed the following surrogate would be surrogate decision maker per [place] decision making law. (Only good for 180 days) Any patient receiving care in [place] must abide by [place] law. The hierarchy for surrogate decision making is: (a) Patient???s spouse, or civil union partner or common law spouse unless there is a divorce proceeding, separation agreement, or restraining order limiting that person???s relationship with the patient. (b) Any adult son or daughter of the patient. (c) Either parent of the patient. (d) Any adult brother or sister of the patient. (e) Any adult grandchild of the patient. (f) Any grandparent of the patient. (g) Any adult aunt, uncle, niece, or nephew of the patient. (h) A close friend of the patient. (i) The agent with financial power of real estate attorney or a conservator appointed in accordance with RSA 464-A. (j) The guardian of the patient???s estate. Advance Care Planning: Attempt Cardiopulmonary Resuscitation - Inpatient <no information> -Advanced Directive: No, need to discuss (spouse Bartolo) Current Coping/Education/Information Needs: Advanced Care Planning docs Current Functional Ability: Independent Functional Status Prior to Admission: Independent Prior ADLs & IADLs: Independent with all ADLs & IADLs Home Environment: Others in the home: spouse. Current Living Arrangements: home/apartment/condo. Accessibility Concerns:1 level home with 2 [place]. Resource / Environmental Concerns: Resource/Environmental Concerns: none Current DME: none Home Address confirmed as: [address] [facility] [address] Social & Family Supports: All names listed below confirmed with patient as current and correct Extended Emergency Contact Information Primary Emergency Contact: TaiBartolo Address: [address] [place] [address] [place] Relation: Spouse Current Care Provided by: self Provides Primary Care For: no one Caregiver if needed: spouse Quality of Family relationships: supportive Community Resources being provided currently: none Behavioral Health History: none noted Substance Use/Abuse confirmed: Social History Tobacco Use Smoking Status Former ??? Types: Cigarettes ??? Quit date: 03/23/2003 ??? Years since quittin.3 Smokeless Tobacco Never 0 No problems reported 1-2 Low level 3-5 Moderate level 6-8 Substantial level 9- 10 Severe level 0 to 7 points: Low risk 8 to 15 points: Medium risk 16 to 19 points: High risk 20 to 40 points: Addiction likely Other Pertinent/Service Specific Information: Health/Prescription Coverage: Primary Insurance: [employer] Medical Payor: [employer] [place] / Plan[place] / Product Type: *No Product type* / Secondary Insurance: N/A ; Prescription Coverage: Yes Preferred Pharmacy: [facility] [address] [address] [place] Status: Patient is a : No Primary Care Provider confirmed: None None Patient/Caregiver Goals of Treatment: Return home when medically ready Potential Needs for Transition of Care: outpatient care Agency Referrals: Not Applicable Transportation: no concerns Transportation Anticipated: family or friend will provide Concerns to be Addressed: no discharge needs identified Assessment: Patient is [facility] for ulcerative colitis. Plan: Inpatient admission, as outpatient management has failed. Patient with no apparent RNCM/SW needs at this time. No housing, transportation, insurance, resources concerns identified at this time.Supports in place to achieve a safe post-hospital transition. No identified barriers to accessing necessary care and/or follow-up after discharge. A member of the Care Management team will continue to monitor progress, follow for continuity of care and assist with transition of care planning. Louann PONCE Emergency [facility] [employer] [phone] Pager: [phone] * Consult Note - Nadia Orellana MD - 08/09/2022 2:17 PM EST Images from the original note were not included. DIVISION OF GASTROENTEROLOGY & HEPATOLOGY INITIAL CONSULT REQUESTING PROVIDER: Basil De La Rosa MD NAME: Elsa Londono : 1960 HPI: Elsa Londono 61 y.o./ w/ PMH of panulcerative colitis adm 08/09/2022 9:58 AM with worsening bloody diarrhea. Outside GI Notes Summarized: - diagnosed with panulcerative colitis diagnosed at [...] Hgb 9.1, ferritin 19, c diff negative Elsa reports that she had relatively well-controlled ulcerative colitis until April of this year. In April she developed worsening bloody diarrhea with nocturnal stooling and abdominal pain.She states she has lost 23 pounds since May. At this time, she went to a bland diet but still had poor p.o. intake and little appetite. She was started on prednisone initially at 20 mg daily and then increase to 40 mg daily while awaiting prior Auth for initiating Entyvio. She then started Entyvio on had her first infusion on 07/05 and her second infusion on 07/19. She states that after receiving her second infusion of Entyvio she felt like I was poisoned . She said that she developed oralulcers and an ulcerative rash all over her back. She has not seen dermatology who did a punch biopsy with the pathology pending. The rash on her back and her oral ulcers have resolved. She then she felt better after initiating Entyvio from a GI perspective, but does not want to have this medicationanymore given the rash. She then was having more than 10 bloody bowel movements per day, increasing fatigue, diffuse abdominal pain, poor p.o. intake. At this time, her outside GI provider prescribedprednisone 40 mg daily and she underwent a flexible sigmoidoscopy last with pathology pending. Unclear if she had biopsies for CMV. However, given ongoing symptoms and failure to improve on prednisone, she presented to our ED for further evaluation. Of note, she has not been hospitalized for her UC ever. In the ED, she has been afebrile and hemodynamically stable. Labs notable for hemoglobin of 8.6, noleukocytosis, platelets 665, normal BUN/creatinine, CRP of 30.4, normal LFTs, normal lipase, albumin 3.1. She was sent for CT abdomen pelvis with contrast that showed - Descending and rectosigmoid colitis. No abscess nor perforation. ROS: 10-system ROS negative other than that noted above PAST MEDICAL: No past medical history on file. PAST SURGICAL HX: No past surgical history on file. SOCIAL HX: Social History Socioeconomic History ??? Marital status: Spouse name: Not on file ??? Number of children: Not on file ??? Years of education: Not on file ??? Highest education level: Not on file Occupational History ??? Not on file Tobacco Use ??? Smoking status: Former Types: Cigarettes Quit date: 03/23/2003 Years since quittin.3 ??? Smokeless tobacco: Never Substance and Sexual Activity ??? Alcohol use: Not on file ??? Drug use: Not on file ??? Sexual activity: Not on file Other Topics Concern ??? Not on file Social History Narrative ??? Not on file Social Determinants of Health Financial Resource Strain: Not on file Food Insecurity: Not on file Transportation Needs: Not on file Physical Activity: Not on file Housing Stability: Not on file FAMILY HX: No family history on file. MEDICATIONS Medication list personally reviewed Home Meds: (Not in a hospital admission) Current Meds: Scheduled: Drips: PRN: Allergies: Allergies Allergen Reactions ??? Sulfa (Sulfonamide Antibiotics) Hives OBJECTIVE Vitals: T Temp: [36.8 ??C (98.3 ??F)] HR Heart Rate: [89] BP BP: (126)/(83) RR Resp: [16] SpO2 SpO2: [99 %] IO No intake/output data recorded. Wt Last 61.7 kg (136 lb) Admit 61.69 kg Physical Exam: CONST: Awake, alert, no acute distress HEENT: sclerae anicteric RESP: normal RR CARDIAC: RRR GI: abdomen soft, mild tenderness throughout without rebound or guarding, non-distended, MSK: legs warm, palpable pulses b/l, no significant edema SKIN: No jaundice, rash, or bruising NEURO: Grossly intact, moves all extremities PSYCH: Pleasant, appropriate affect Labs: Labs personally reviewed in eDH CBC: Recent Labs 08/09/22 1046 WBC 8.8 HGB 8.6* PLATELET 665* MCV 87.6 RDWCV 14.9* COAG: No results for input(s): PTT, INR, PT in the last 168 hours. CHEM: Recent Labs 08/09/22 1046 CREATININE 0.73 BUN 9 NA 131* K 3.6 CL 93* CO2 27 CALCIUM 8.8 HEPATIC: Recent Labs 08/09/22 1046 BILITOT <0.2* BILIDIR <0.1 ALKPHOS 65 AST 13 ALT 12 ALBUMIN 3.1* LIPASE 18 INFLAMM: No results for input(s): CRP in the last 168 hours. IMAGING: Reports and images personally reviewed in eDH. Images independently interpreted. CT Abdomen & Pelvis w Contrast Final Result Descending and rectosigmoid colitis. No abscess nor perforation. Thank you for letting us participate in the care of this patient. If you are a health care provider and have any questions regarding this report, please contact the number below. For patients who have questions please contact the health home care administrator that requested your imaging first. Electronically signed by: Kiara Chance MD, [facility] ([phone]), at 08/09/2022 1:09 PM ENDOSCOPY: Reports and images personally reviewed in eDH OSH RECORDS: Obtained and personally reviewed ASSESSMENT & PLAN: Elsa Londono 61 y.o./ w/ PMH of panulcerative colitis adm with worsening bloody diarrhea. As above, Elsa reports having relatively well-controlled medina ulcerative colitis since she was diagnosed at age24. She has never been hospitalized for ulcerative colitis. Starting in April, she has had worse stephen diarrhea, bloody bowel movements, abdominal pain, poor p.o. intake, weight loss. She was started on oral prednisone as a bridge to initiating Entyvio for which she received 2 doses the first on 07/05/2022 and the second on 07/19/2022. Unfortunately, after the second infusion she had some sort of reaction with oral ulcers and an ulcerative rash all over her back. She subsequently saw dermatolog y who took biopsies of the back with pathology pending. She was then placed back on prednisone 40 mg daily and underwent a flexible sigmoidoscopy with her outpatient GI last and pathology showed chronic, moderately active colitis from rectum to transverse colon, negative for dysplasia, negative for CMV. Unfortunately, she has not been improving on oral steroids and continues to have morethan 10 episodes of watery and bloody diarrhea associated with abdominal pain, and poor p.o. intake, and weight loss. For all of the symptoms, she presented to our ED today. Here, her labs are notable for a hemoglobin of 8.6 and a CRP of 30.4. She has some mild tenderness on her abdominal exam but o verall this is reassuring given lack of distention, and findings of peritonitis. She had a CT abdomen and pelvis with contrast that showed descending and rectosigmoid colitis without abscess or perforation. Overall, her presentation is concerning for an ulcerative colitis flare and failure of outpatient management. It is also possible that she has an infection such as C. difficile though ulcerative colitis flare and infection can coexist as infections are known to precipitate UC flares. For now, wouldrule out infection and also initiate treatment for UC flare. We discussed the possibility of initiating Remicade this admission given the severity of her UC and failure with outpatient management, pending her clinical course. Recommendations: - start IV Hydrocortisone 100mg TID (08/09) - obtain stool studies: c diff, stool molecular screen (including campylobacter, shiga toxins), O&P - daily CRP - IVFs per primary team - chart # bowel movements on white board - please obtain Hepatitis B serologies (HBSAgy, HBsAb, HBcAb) and quantiferon gold (pt reports these were done recently at [facility] prior to starting Entyvio) - will monitor for need for Remicade - please start Lovenox 40mg q24hr - pls consult hyperbaric team in the AM - serial abdominal exams - avoid opiates and NSAIDs Patient seen with Dr. Orellana. Thank you for involving us in the care of this patient. Please call/page should any further questions arise. Candice Ford MD PGY-4, Gastroenterology Attending Addendum: I interviewed and examined the patient with Dr. Ford on rounds. I confirm the history and castro physical findings outlined in this note. The assessment and plan were formulated in discussion with me at the time of this encounter, and I agree with them as documented. Nadia Orellana MD Gastroenterology and hepatology Pager: [phone] * ED Triage - Sahra Neville RN - 08/09/2022 9:43 AM EST 61 yo F in via triage reporting she has been sick with ulcerative colitis since April. Now withincreased diarrhea over the past 4 days reporting weakness and dizziness. Ambulating with steady gait. Reports 23lb weight loss. Respirations are even and unlabored. documented in this encounter Plan of Treatment Upcoming Encounters Date Type Department Care Team (Late st Contact Info) Description 06/25/2024 9:30 AM EDT Office Visit Gastroenterology at [facility] [place] [address] Janice Villarreal MD [facility] [place] [address] documented as of this encounter Procedures Procedure Name Priority Date/Time Associated Diagnosis Comments HC C-REACTIVE PROTEIN Routine 08/14/2022 5:12 AM EST SCAN, PERIPHERAL BLOOD Routine 5:12 AM EST HEMOGRAM Routine 08/14/2022 5:12 AM EST DIFFERENTIAL, AUTOMATED Routine 08/14/2022 5:12 AM EST HC VENIPUNCTURE Routine 08/14/2022 5:12 AM EST OSMOLALITY Routine 08/14/2022 5:12 AM EST HEPATIC FUNCTION PANEL Routine 2 5:12 AM EST BASIC METABOLIC PANEL (NON-FASTING) Routine 08/14/2022 5:12 AM EST ORDS - PROVIDER CARE SCAN 08/14/2022 12:00 AM EST HC C-REACTIVE PROTEIN Routine 08/13/2022 5:01 AM EST HEMOGRAM Routine 08/13/2022 5:01 AM EST DIFFERENTIAL, AUTOMATED Routine 08/13/2022 5:01 AM EST HC VENIPUNCTURE Routine 08/13/2022 5:01 AM EST PHOSPHORUS Routine 08/13/2022 5:01 AM EST MAGNESIUM Routine 08/13/2022 5:01 AM EST HEPATIC FUNCTION PANEL Routine 2 5:01 AM EST BASIC METABOLIC PANEL (NON-FASTING) Routine 08/13/2022 5:01 AM EST HC C-REACTIVE PROTEIN Routine 08/12/2022 7:22 AM EST HEMOGRAM Routine 08/12/2022 7:22 AM EST DIFFERENTIAL, AUTOMATED Routine 08/12/2022 7:22 AM EST HC VENIPUNCTURE Routine 08/12/2022 7:22 AM EST HEPATIC FUNCTION PANEL Routine 7:22 AM EST BASIC METABOLIC PANEL (NON-FASTING) Routine 08/12/2022 7:22 AM EST HC C-REACTIVE PROTEIN Routine 08/11/2022 7:09 AM EST HEMOGRAM Routine 08/11/2022 7:09 AM EST DIFFERENTIAL, AUTOMATED Routine 08/11/2022 7:09 AM EST HC VENIPUNCTURE Routine 08/11/2022 7:09 AM EST HEPATIC FUNCTION PANEL Routine 7:09 AM EST BASIC METABOLIC PANEL (NON-FASTING) Routine 08/11/2022 7:09 AM EST HC QUANTIFERON Routine 08/10/2022 12:10 PM EST HC HEMOGLOBIN, BLOOD STAT 08/10/2022 12:10 PM EST HC HEPATITIS B CORE AB Routine 12:10 PM EST HC HEPATITIS B SURFACE AB Routine 08/10/2022 12:10 PM EST HC HEPATITIS B SURFACE AB Routine 08/10/2022 12:10 PM EST TYPE AND SCREEN VALIDITY STAT 08/10/2022 1:16 AM EST ABORH RECHECK STATUS STAT 08/10/2022 1:16 AM EST CRP, ACUTE INFLAMMATION Routine 08/10/2022 1:16 AM EST HEMOGRAM Routine 08/10/2022 1:16 AM EST DIFFERENTIAL, AUTOMATED Routine 08/10/2022 1:16 AM EST HC IRON BINDING CAPACITY Routine 08/10/2022 1:16 AM EST ABO/RH TYPING STAT 08/10/2022 1:16 AM EST HC ESR-SEDIMENTATION RATE, BLOOD Routine 08/10/2022 1:16 AM EST HC CBC,PLT & AUTO DIFF Routine 1:16 AM EST ANTIBODY SCREEN STAT 08/10/2022 1:16 AM EST HC ANTIBODY DETECTION,CAPTURE-R STAT 08/10/2022 1:16 AM EST HC FERRITIN, SERUM Routine 08/10/2022 1: 16 AM EST HEPATIC FUNCTION PANEL Routine 1:16 AM EST BASIC METABOLIC PANEL (NON-FASTING) Routine 08/10/2022 1:16 AM EST HC STOOL CULTURE Routine 08/09/2022 7:18 PM EST CAMPYLOBACTER ANTIGEN Routine 08/09/2022 7:18 PM EST HC C DIFFICILE PCR Routine 08/09/2022 7: 18 PM EST SHIGA TOXIN ASSAY Routine 08/09/2022 7:1 8 PM EST HC STOOL WBC BY LATEX AGGLU STAT 08/09/2022 7:18 PM EST STOOL CULTURE Routine 08/09/2022 7:18 PM EST HC FECAL CALPROTECTIN STAT 08/09/2022 7:[address] ABDOMEN AND PELVIS W CONTRAST STAT 08/09/2022 12:54 PM EST L-LACTATE2 WHOLE BLOOD Routine 11:52 AM EST CRP, ACUTE INFLAMMATION STAT 08/09/2022 10:46 AM EST HEMOGRAM STAT 08/09/2022 10:46 AM EST DIFFERENTIAL, AUTOMATED STAT 08/09/2022 10:46 AM EST HC CBC,PLT & AUTO DIFF STAT 10:46 AM EST HC LIPASE STAT 08/09/2022 10:46 AM EST HEPATIC FUNCTION PANEL STAT 10:46 AM EST BASIC METABOLIC PANEL (NON-FASTING) STAT 08/09/2022 10:46 AM EST documented in this encounter Results * (ABNORMAL) Osmolality (08/14/2022 5:12 AM EST) Osmolality 267(L) 275 - 295 mOsm/kg [facility] Blood Venous Draw / Unknown 08/14/2022 5:12 AM EST 08/14/2022 5:32 AM EST Narrative Resulting Agency Comment Spec In Lab Marc Cunningham MD CHEMISTRY ORDERABLES [facility] [place] [address] * Scan, Peripheral Blood (08/14/2022 5:12 AM EST) Plat Estimate Increased [facility] RBC Morphology Abnormal [facility] Hypochromia Slight [facility] Ovalocytes 1-5 /HPF [facility] Blood 08/14/2022 5:12 AM EST 08/14/2022 5:27 AM EST Narrative Resulting Agency Comment Spec In Lab Jenise Tijerina MD HEMATOLOGY ORDERABLE S [facility] [place] [address] * (ABNORMAL) Differential, Automated (08/14/2022 5:12 AM EST) Neutrophils % 43.3 % [facility] Neutr Abs (ANC) 6.22(H) 1.70 - 6.10 x10(3)/[facility] Lymphocytes % 43.3 % [facility] Lymphocytes Abs 6.2(H) 0.9 - 3.2 x10(3)/[facility] Monocytes % 9.5 % [facility] Monocyte Abs 1.4(H) 0.3 - 0.9 x10(3)/[facility] Eosinophils % 2.4 % [facility] Eosinophils Abs 0.3 0.0 - 0.4 x10(3)/[facility] Basophils % 0.4 % [facility] Basophils Abs 0.1 0.0 - 0.1 x10(3)/[facility] Immature Gran % 1.10 % [facility] Comment: Immature granulocytes(IG's)percentage and absolute count will include metamyelocytes, myelocytes, and promyelocytes. Blood smears from CBCs yielding IG's will be scanned manually for concordance. If this scan disagrees with the automated IG or if promyelocytes are noted, a manual differential will be performed. Polina Gran Abs 0.16(H) 0.00 - 0.04 x10(3)/ L [facility] Blood 08/14/2022 5:12 AM EST 08/14/2022 5:27 AM EST Narrative Resulting Agency Comment Spec In Lab Jenise Tijerina MD HEMATOLOGY ORDERABLE S [facility] [place] [address] * (ABNORMAL) Hemogram (08/14/2022 5:12 AM EST) WBC 14.4(H) 4.0 - 9.5 x10(3)/[facility] RBC 2.62(L) 4.00 - 5.21 x10(6)/[facility] Hemoglobin 7.7(L) 11.7 - 15.5 g/dL [facility] Hematocrit 22.8(L) 35.7 - 45.8 % [facility] MCV 87.0 82.6 - 94.4 fL [facility] MCH 29.4 27.1 - 32.0 pg [facility] MCHC 33.8 31.7 - 35.0 g/dL [facility] Platelets 621(H) 145 - 357 x10(3)/[facility] RDWSD 47.9(H) 37.0 - 46.0 [facility] RDWCV 15.2(H) 11.5 - 14.1 % [facility] MPV 8.0 7.6 - 12.9 [facility] nRBC % Auto 0.0 % [facility] nRBC Abs Auto 0.000 0.000 - 0.000 x10(3)/[facility] Blood 08/14/2022 5:12 AM EST 08/14/2022 5:32 AM EST Narrative Resulting Agency Comment Spec In Lab Marc Cunningham MD HEMATOLOGY ORDERABLE S [facility] [place] [address] * (ABNORMAL) CRP, acute inflammation (08/14/2022 5:12 AM EST) CRP 9.9(H) <=4.9 mg/L [facility] Blood 08/14/2022 5:12 AM EST 08/14/2022 5:27 AM EST Narrative Resulting Agency Comment Spec In Lab Jeremy Metzger MD CHEMISTRY ORDERABLES [facility] [place] [address] * (ABNORMAL) Hepatic Function Panel (08/14/2022 5:12 AM EST) [facility] Total Protein 4.8(L) 6.1 - 8.0 g/dL [facility] Albumin 2.8(L) 3.2 - 5.2 g/dL [facility] AST 12 0 - 30 unit/L [facility] ALT 11 0 - 30 unit/L [facility] Alk Phos 47 35 - 105 unit/L [facility] Total Bilirubin <0.2(L) 0.2 - 1.3 mg/dL [facility] Bili, Direct <0.1 0.0 - 0.3 mg/dL [facility] Blood 08/14/2022 5:12 AM EST 08/14/2022 5:27 AM EST Narrative Resulting Agency Comment Spec In Lab Jeremy Metzger MD CHEMISTRY ORDERABLES Performing Organization Address City/[facility]/ZIP Co de Phone Number [facility] [place] [address] * (ABNORMAL) Basic Metabolic Panel (non-fasting) (08/14/2022 5:12 AM EST) Glucose Lvl 86 65 - 199 mg/dL [facility] Comment:Diabetes: >=200 mg/d L plus symptoms BUN 14 8 - 18 mg/dL [facility] Creatinine 0.65(L) 0.70 - 1.20 mg/dL [facility] Sodium 129(L) 135 - 145 mmol/L [facility] Potassium 3.7 3.5 - 5.0 mmol/L [facility] Comment: Please note: ??Patients with WBC >100,000 may have falsely elevated Potassium levels. ??For accurate Potassium quantification in these patients send serum separator tube (gold top) for subsequent determinations. ??Contact the Clinical Chemistry Laboratory if there are any questions. Chloride 94(L) 98 - 107 mmol/L [facility] CO2 29 22 - 31 mmol/L [facility] Anion Gap 6 5 - 15 mmol/L [facility] Calcium 7.9(L) 8.5 - 10.5 mg/dL [facility] Estimated GFR 99 >=60 mL/min/1. 73 m?? [facility] Comment: This patient's estimated [...] and symptoms in addition to eGFR. Blood 08/14/2022 5:12 AM EST 08/14/2022 5:27 AM EST Narrative Resulting Agency Comment Spec In Lab Jeremy Metzger MD CHEMISTRY ORDERABLES [facility] [place] [address] * SCAN DOC: ORDS - PROVIDER CARE (08/14/2022 12:00 AM EST) Narrative 08/14/2022 12:00 AM EST Ordered by an unspecified provider. Scanning Provider MEDIA MGR SCAN EXT O RDR/RSLT * (ABNORMAL) Phosphorus (08/13/2022 5:01 AM EST) [facility] Phosphorus 2.4(L) 2.5 - 4.5 mg/dL [facility] Blood Venous Draw / Unknown 08/13/2022 5:01 AM EST 08/13/2022 5:25 AM EST Narrative Resulting Agency Comment Spec In Lab Marc Cunningham MD CHEMISTRY ORDERABLES [facility] [place] [address] * Magnesium (08/13/2022 5:01 AM EST) [facility] Magnesium 0.81 0.69 - 1.07 mmol/L [facility] Blood Venous Draw / Unknown 08/13/2022 5:01 AM EST 08/13/2022 5:25 AM EST Narrative Resulting Agency Comment Spec In Lab Marc Cunningham MD CHEMISTRY ORDERABLES Performing Organization Address City/[facility]/ZIP Co de Phone Number [facility] [place] [address] * (ABNORMAL) Differential, Automated (08/13/2022 5:01 AM EST) [facility] Neutrophils % 57.0 % [facility] Neutr Abs (ANC) 5.29 1.70 - 6.10 x10(3)/mc L [facility] Lymphocytes % 31.4 % [facility] Lymphocytes Abs 2.9 0.9 - 3.2 x10(3)/mc L [facility] Monocytes % 10.1 % [facility] Monocyte Abs 0.9 0.3 - 0.9 x10(3)/mc L [facility] Eosinophils % 0.2 % [facility] Eosinophils Abs 0.0 0.0 - 0.4 x10(3)/mc L NADIA [facility] Basophils % 0.1 % [facility] Basophils Abs 0.0 0.0 - 0.1 x10(3)/[facility] Immature Gran % 1.20 % [facility] Comment: Immature granulocytes(IG's)percentage and absolute count will include metamyelocytes, myelocytes, and promyelocytes. Blood smears from CBCs yielding IG's will be scanned manually for concordance. If this scan disagrees with the automated IG or if promyelocytes are noted, a manual differential will be performed. Polina Gran Abs 0.11(H) 0.00 - 0.04 x10(3)/[facility] Blood 08/13/2022 5:01 AM EST 08/13/2022 5:23 AM EST Narrative Resulting Agency Comment Spec In Lab Jenise Tijerina MD HEMATOLOGY ORDERABLE S Performing Organization Address City/State/[facility] Co de Phone Number [facility] [place] [address] * (ABNORMAL) Hemogram (08/13/2022 5:01 AM EST) WBC 9.3 4.0 - 9.5 x10(3)/[facility] RBC 2.84(L) 4.00 - 5.21 x10(6)/[facility] Hemoglobin 8.3(L) 11.7 - 15.5 g/dL [facility] Hematocrit 25.4(L) 35.7 - 45.8 % [facility] MCV 89.4 82.6 - 94.4 fL [facility] MCH 29.2 27.1 - 32.0 pg [facility] MCHC 32.7 31.7 - 35.0 g/dL [facility] Platelets 662(H) 145 - 357 x10(3)/[facility] RDWSD 49.1(H) 37.0 - 46.0 fL [facility] RDWCV 15.1(H) 11.5 - 14.1 % [facility] MPV 8.2 7.6 - 12.9 fL [facility] nRBC % Auto 0.0 % [facility] nRBC Abs Auto 0.000 0.000 - 0.000 x10(3)/mcL [facility] Blood 08/13/2022 5:01 AM EST 08/13/2022 5:25 AM EST Narrative Resulting Agency Comment Spec In Lab Marc Cunningham MD HEMATOLOGY ORDERABLE S Performing Organization Address City/[facility]/ZIP Co de Phone Number [facility] [place] [address] * (ABNORMAL) CRP, acute inflammation (08/13/2022 5:01 AM EST) Pathologist [facility] CRP 18.7(H) <=4.9 mg/L [facility] Blood 08/13/2022 5:01 AM EST 08/13/2022 5:23 AM EST Narrative Resulting Agency Comment Spec In Lab Jeremy Metzger MD CHEMISTRY ORDERABLES Performing Organization Address [facility] Co de Phone Number [facility] [place] [address] * (ABNORMAL) Hepatic Function Panel (08/13/2022 5:01 AM EST) Total Protein 5.4(L) 6.1 - 8.0 g/dL [facility] Albumin 3.1(L) 3.2 - 5.2 g/dL [facility] AST 9 0 - 30 unit/L [facility] ALT 8 0 - 30 unit/L [facility] Alk Phos 54 35 - 105 unit/L [facility] Total Bilirubin <0.2(L) 0.2 - 1.3 mg/dL [facility] Bili, Direct <0.1 0.0 - 0.3 mg/dL [facility] Blood 08/13/2022 5:01 AM EST 08/13/2022 5:23 AM EST Narrative Resulting Agency Comment Spec In Lab Jeremy Metzger MD CHEMISTRY ORDERABLES [facility] [place] [address] * (ABNORMAL) Basic Metabolic Panel (non-fasting) (08/13/2022 5:01 AM EST) Glucose Lvl 125 65 - 199 mg/dL [facility] Comment:Diabetes: >=200 mg/d L plus symptoms BUN 15 8 - 18 mg/dL [facility] Creatinine 0.62(L) 0.70 - 1.20 mg/dL [facility] Sodium 134(L) 135 - 145 mmol/L [facility] Potassium 3.7 3.5 - 5.0 mmol/L [facility] Comment: Please note: ??Patients with WBC >100,000 may have falsely elevated Potassium levels. ??For accurate Potassium quantification in these patients send serum separator tube (gold top) for subsequent determinations. ??Contact the Clinical Chemistry Laboratory if there are any questions. Chloride 97(L) 98 - 107 mmol/L [facility] CO2 29 22 - 31 mmol/L [facility] Anion Gap 8 5 - 15 mmol/L [facility] Calcium 8.4(L) 8.5 - 10.5 mg/dL [facility] Estimated GFR 100 >=60 mL/min/1. 73 m?? [facility] Comment: This patient's estimated [...] and symptoms in addition to eGFR. Blood 08/13/2022 5:01 AM EST 08/13/2022 5:23 AM EST Narrative Resulting Agency Comment Spec In Lab Jeremy Metzger MD CHEMISTRY ORDERABLES [facility] [place] [address] * (ABNORMAL) Differential, Automated (08/12/2022 7:22 AM EST) Neutrophils % 48.5 % [facility] Neutr Abs (ANC) 4.01 1.70 - 6.10 x10(3)/[facility] Lymphocytes % 38.6 % [facility] Lymphocytes Abs 3.2 0.9 - 3.2 x10(3)/[facility] Monocytes % 11.2 % [facility] Monocyte Abs 0.9 0.3 - 0.9 x10(3)/[facility] Eosinophils % 0.5 % [facility] Eosinophils Abs 0.0 0.0 - 0.4 x10(3)/[facility] Basophils % 0.4 % [facility] Basophils Abs 0.0 0.0 - 0.1 x10(3)/[facility] Immature Gran % 0.80 % [facility] Comment: Immature granulocytes(IG's)percentage and absolute count will include metamyelocytes, myelocytes, and promyelocytes. Blood smears from CBCs yielding IG's will be scanned manually for concordance. If this scan disagrees with the automated IG or if promyelocytes are noted, a manual differential will be performed. Polina Gran Abs 0.07(H) 0.00 - 0.04 x10(3)/ L [facility] Blood 08/12/2022 7:22 AM EST 08/12/2022 7:34 AM EST Narrative Resulting Agency Comment Spec In Lab Jenise Tijerina MD HEMATOLOGY ORDERABLE S Performing Organization Address City/[facility]/ZIP Co de Phone Number [facility] [place] [address] * (ABNORMAL) Hemogram (08/12/2022 7:22 AM EST) WBC 8.3 4.0 - 9.5 x10(3)/[facility] RBC 2.54(L) 4.00 - 5.21 x10(6)/[facility] Hemoglobin 7.3(L) 11.7 - 15.5 g/dL [facility] Hematocrit 22.6(L) 35.7 - 45.8 % [facility] MCV 89.0 82.6 - 94.4 fL [facility] MCH 28.7 27.1 - 32.0 pg [facility] MCHC 32.3 31.7 - 35.0 g/dL [facility] Platelets 577(H) 145 - 357 x10(3)/[facility] RDWSD 49.4(H) 37.0 - 46.0 [facility] RDWCV 15.0(H) 11.5 - 14.1 % [facility] [facility] MPV 8.0 7.6 - 12.9 [facility] nRBC % Auto 0.0 % [facility] nRBC Abs Auto 0.000 0.000 - 0.000 x10(3)/[facility] Blood 08/12/2022 7:22 AM EST 08/12/2022 7:34 AM EST Narrative Resulting Agency Comment Spec In Lab Jenise Tijerina MD HEMATOLOGY ORDERABLE S [facility] [place] [place] [address] * (ABNORMAL) CRP, acute inflammation (08/12/2022 7:22 AM EST) CRP 39.1(H) <=4.9 mg/L [facility] Blood 08/12/2022 7:22 AM EST 08/12/2022 7:34 AM EST Narrative Resulting Agency Comment Spec In Lab Jeremy Metzger MD CHEMISTRY ORDERABLES Performing Organization Address [facility]/ZIP Co de Phone Number [facility] [place] [place] [address] * (ABNORMAL) Hepatic Function Panel (08/12/2022 7:22 AM EST) Total Protein 5.0(L) 6.1 - 8.0 g/dL [facility] Albumin 2.6(L) 3.2 - 5.2 g/dL [facility] AST 9 0 - 30 unit/L [facility] ALT 9 0 - 30 unit/L [facility] Alk Phos 49 35 - 105 unit/L [facility] Total Bilirubin <0.2(L) 0.2 - 1.3 mg/dL [facility] Bili, Direct <0.1 0.0 - 0.3 mg/dL [facility] Blood 08/12/2022 7:22 AM EST 08/12/2022 7:34 AM EST Narrative Resulting Agency Comment Spec In Lab Jeremy Metzger MD CHEMISTRY ORDERABLES Performing Organization Address City/[facility]/ZIP Co de Phone Number [facility] [place] [address] * (ABNORMAL) Basic Metabolic Panel (non-fasting) (08/12/2022 7:22 AM EST) Glucose Lvl 103 65 - 199 mg/dL [facility] Comment:Diabetes: >=200 mg/d L plus symptoms BUN 11 8 - 18 mg/dL [facility] Creatinine 0.47(L) 0.70 - 1.20 mg/dL [facility] Sodium 134(L) 135 - 145 mmol/L [facility] Potassium 3.6 3.5 - 5.0 mmol/L [facility] Comment: Please note: ??Patients with WBC >100,000 may have falsely elevated Potassium levels. ??For accurate Potassium quantification in these patients send serum separator tube (gold top) for subsequent determinations. ??Contact the Clinical Chemistry Laboratory if there are any questions. Chloride 99 98 - 107 mmol/L [facility] CO2 26 22 - 31 mmol/L [facility] Anion Gap 9 5 - 15 mmol/L [facility] Calcium 8.1(L) 8.5 - 10.5 mg/dL [facility] Estimated GFR 107 >=60 mL/min/1. 73 m?? [facility] Comment: This patient's estimated [...] and symptoms in addition to eGFR. Blood 08/12/2022 7:22 AM EST 08/12/2022 7:34 AM EST Narrative Resulting Agency Comment Spec In Lab Jeremy Metzger MD CHEMISTRY ORDERABLES [facility] [place] [address] * (ABNORMAL) Differential, Automated (08/11/2022 7:09 AM EST) Neutrophils % 63.2 % [facility] Neutr Abs (ANC) 5.17 1.70 - 6.10 x10(3)/[facility] Lymphocytes % 25.8 % [facility] Lymphocytes Abs 2.1 0.9 - 3.2 x10(3)/[facility] Monocytes % 9.3 % [facility] Monocyte Abs 0.8 0.3 - 0.9 x10(3)/[facility] Eosinophils % 0.4 % [facility] Eosinophils Abs 0.0 0.0 - 0.4 x10(3)/[facility] Basophils % 0.7 % [facility] Basophils Abs 0.1 0.0 - 0.1 x10(3)/[facility] Immature Gran % 0.60 % [facility] Comment: Immature granulocytes(IG's)percentage and absolute count will include metamyelocytes, myelocytes, and promyelocytes. Blood smears from CBCs yielding IG's will be scanned manually for concordance. If this scan disagrees with the automated IG or if promyelocytes are noted, a manual differential will be performed. Polina Gran Abs 0.05(H) 0.00 - 0.04 x10(3)/[facility] Blood 08/11/2022 7:09 AM EST 08/11/2022 7:27 AM EST Narrative Resulting Agency Comment Spec In Lab Jenise Tijerina MD HEMATOLOGY ORDERABLE S [facility] [place] [place] [address] * (ABNORMAL) Hemogram (08/11/2022 7:09 AM EST) WBC 8.2 4.0 - 9.5 x10(3)/[facility] RBC 2.53(L) 4.00 - 5.21 x10(6)/[facility] Hemoglobin 7.4(L) 11.7 - 15.5 g/dL [facility] Hematocrit 22.3(L) 35.7 - 45.8 % [facility] MCV 88.1 82.6 - 94.4 fL [facility] MCH 29.2 27.1 - 32.0 pg [facility] MCHC 33.2 31.7 - 35.0 g/dL [facility] Platelets 575(H) 145 - 357 x10(3)/[facility] RDWSD 48.1(H) 37.0 - 46.0 fL [facility] RDWCV 14.9(H) 11.5 - 14.1 % [facility] MPV 8.0 7.6 - 12.9 [facility] nRBC % Auto 0.0 % [facility] nRBC Abs Auto 0.000 0.000 - 0.000 x10(3)/[facility] Blood 08/11/2022 7:09 AM EST 08/11/2022 7:27 AM EST Narrative Resulting Agency Comment Spec In Lab Jenise Tijerina MD HEMATOLOGY ORDERABLE S Performing Organization Address City/[facility]/ZIP Co de Phone Number [facility] [place] [place] [address] * (ABNORMAL) CRP, acute inflammation (08/11/2022 7:09 AM EST) CRP 44.4(H) <=4.9 mg/L [facility] Blood 08/11/2022 7:09 AM EST 08/11/2022 7:27 AM EST Narrative Resulting Agency Comment Spec In Lab Jeremy Metzger MD CHEMISTRY ORDERABLES Performing Organization Address City/[facility]/ZIP Co de Phone Number [facility] [place] [address] * (ABNORMAL) Hepatic Function Panel (08/11/2022 7:09 AM EST) Pathologist [facility] [place] Total Protein 5.1(L) 6.1 - 8.0 g/dL [facility] Albumin 3.0(L) 3.2 - 5.2 g/dL [facility] AST 7 0 - 30 unit/L [facility] ALT 6 0 - 30 unit/L [facility] Alk Phos 52 35 - 105 unit/L [facility] Total Bilirubin <0.2(L) 0.2 - 1.3 mg/dL [facility] Bili, Direct <0.1 0.0 - 0.3 mg/dL [facility] Blood 08/11/2022 7:09 AM EST 08/11/2022 7:27 AM EST Narrative Resulting Agency Comment Spec In Lab Jeremy Metzger MD CHEMISTRY ORDERABLES Performing Organization Address City/State/[facility] Co de Phone Number [facility] [place] [place] [address] * (ABNORMAL) Basic Metabolic Panel (non-fasting) (08/11/2022 7:09 AM EST) [facility] Glucose Lvl 107 65 - 199 mg/dL [facility] Comment:Diabetes: >=200 mg/d L plus symptoms BUN 7(L) 8 - 18 mg/dL [facility] Creatinine 0.60(L) 0.70 - 1.20 mg/dL [facility] Sodium 132(L) 135 - 145 mmol/L [facility] Potassium 3.0(Criti mal) 3.5 - 5.0 mmol/L [facility] Comment: Called by: YVONNE, Read back by: Brad Hoffman, Date/Time:08/11/22 08:24. Please note: ??Patients with WBC >100,000 may have falsely elevated Potassium levels. ??For accurate Potassium quantification in these patients send serum separator tube (gold top) for subsequent determinations. ??Contact the Clinical Chemistry Laboratory if there are any questions. Chloride 96(L) 98 - 107 mmol/L [facility] CO2 25 22 - 31 mmol/L [facility] Anion Gap 11 5 - 15 mmol/L [facility] Calcium 7.9(L) 8.5 - 10.5 mg/dL [facility] Estimated GFR 101 >=60 mL/min/1. 73 m?? [facility] Comment: This patient's estimated [...] and symptoms in addition to eGFR. Blood 08/11/2022 7:09 AM EST 08/11/2022 7:27 AM EST Narrative Resulting Agency Comment Spec In Lab Jeremy Metzger MD CHEMISTRY ORDERABLES [facility] [place] [place] [address] * (ABNORMAL) Hemoglobin and Hematocrit, blood (08/10/2022 12:10 PM EST) Hemoglobin 7.8(L) 11.7 - 15.5 g/dL [facility] Hematocrit 23.0(L) 35.7 - 45.8 % [facility] Blood 08/10/2022 12:1 0 PM EST 08/10/2022 12:22 PM EST Narrative Resulting Agency Comment Spec In Lab Jeremy Metzger MD HEMATOLOGY ORDERABLE S [facility] [place] [address] * QuantiFERON-TB Gold (08/10/2022 12:10 PM EST) QFT Nil 0.039 IU/mL [facility] QFT TB Ag1-Nil 0.010 IU/mL [facility] QFT TB Ag2-Nil 0.239 IU/mL [facility] QFT Mitogen-Nil 9.961 IU/mL [facility] Quantiferon TB Negative Negative [facility] Quantiferon TB Interp M. tuberculosis infection NOT likely A negative specimen should have a TB1 Ag minus Nil value and TB2 Ag minus Nil value of less than 0.35 IU/mL OR a TB1 Ag minus Nil or TB2 Ag minus Nil value greater than or equal to 0.35 IU/mL AND a TB Ag minus Nil value from the same tube of less than 25% of the Nil value. A negative specimen must also have a mitogen minus Nil value greater than or equal to 0.5 IU/mL. A negative QFT-Plus result does not preclude the possibility of M. tuberculosis infection. False negative results can occur due to stage of infection (specimen obtained prior to the development of immune response), co-morbid conditions which affect immune function, or other immunological factors. [facility] Blood 08/10/2022 12:1 0 PM EST 08/11/2022 7:34 AM EST Narrative Resulting Agency Comment Spec In Lab Jeremy Metzger MD CHEMISTRY ORDERABLES Performing Organization Address [facility] Co de Phone Number [facility] [place] [address] * Hepatitis B Core Antibody, Total (08/10/2022 12:10 PM EST) Hep B Core Ab Negative Negative [facility] Blood 08/10/2022 12:1 0 PM EST 08/10/2022 12:23 PM EST Narrative Resulting Agency Comment Spec In Lab Jeremy Metzger MD CHEMISTRY ORDERABLES Performing Organization Address City/[facility] Co de Phone Number [facility] [place] [address] * Hepatitis B Surface Antibody (08/10/2022 12:10 PM EST) HepB Surface Ab Quant 216.0 IU/L [facility] Comment: HepB Surface Ab Quant: Unvaccinated: < 8.5 IU/L Vaccinated: > 11.5 IU/L HepB Surface Ab Positive [facility] Comment: Patient is considered to be immune to HBV infection. Expected Results: Vaccinated: Positive Unvaccinated: Negative Blood 08/10/2022 12:1 0 PM EST 08/10/2022 12:23 PM EST Narrative Resulting Agency Comment Spec In Lab Jeremy Metzger MD IMMUNOLOGY ORDERABLE S Performing Organization Address [facility]/ZIP Co de Phone Number [facility] [place] [address] * Hepatitis B Surface Antibody (08/10/2022 12:10 PM EST) HepB Surface Ab Quant 218.0 IU/L [facility] Comment: HepB Surface Ab Quant: Unvaccinated: < 8.5 IU/L Vaccinated: > 11.5 IU/L HepB Surface Ab Positive [facility] Comment: Patient is considered to be immune to HBV infection. Expected Results: Vaccinated: Positive Unvaccinated: Negative Blood 08/10/2022 12:1 0 PM EST 08/10/2022 12:23 PM EST Narrative Resulting Agency Comment Spec In Lab Jeremy Metzger MD IMMUNOLOGY ORDERABLE S Performing Organization Address City/[facility]/ZIP Co de Phone Number [facility] [place] [place] [address] * (ABNORMAL) CRP, acute inflammation (08/10/2022 1:16 AM EST) CRP 21.0(H) <=4.9 mg/L [facility] Blood Venous Draw / Unknown 08/10/2022 1:16 AM EST 08/10/2022 1:18 AM EST Narrative Resulting Agency Comment Spec In Lab Basil De La Rosa MD CHEMISTRY ORDERABLES Performing Organization Address City/[facility]/ZIP Co de Phone Number [facility] [place] [address] * Type and Screen Validity (08/10/2022 1:16 AM EST) T&S only valid at [facility] LABORATORY Comment:This Type and Screen result is only valid at the [facility] Hospital Blood 08/10/2022 1:16 AM EST 08/10/2022 1:31 AM EST Narrative Resulting Agency Comment Spec In Lab Jenise Tijerina MD BLOOD BANK LAB ORDER JUNE Performing Organization Address City/[facility]/ZIP Co de Phone Number [facility] [place] [place] [address] * ABORH Recheck Status (08/10/2022 1:16 AM EST) ABORH Recheck Order Order Placed [facility] ABORH Type Recheck Complete [facility] Blood 08/10/2022 1:16 AM EST 08/10/2022 1:31 AM EST Narrative Resulting Agency Comment Spec In Lab Jenise Tijerina MD BLOOD BANK LAB ORDER JUNE Performing Organization Address City/[facility]/ZIP Co de Phone Number [facility] [place] [place] [address] * Antibody screen (08/10/2022 1:16 AM EST) Ab Screen Interp Negative [facility] Expires at [id number] on: 08/13/2022 [facility] Blood 08/10/2022 1:16 AM EST 08/10/2022 1:31 AM EST Narrative Resulting Agency Comment Spec In Lab Jenise Tijerina MD BLOOD BANK LAB ORDER JUNE [facility] [place] [place] [address] * ABO/Rh Typing (08/10/2022 1:16 AM EST) ABORH Type O Pos [facility] Blood 08/10/2022 1:16 AM EST 08/10/2022 1:31 AM EST Narrative Resulting Agency Comment Spec In Lab Jenise Tijerina MD BLOOD BANK LAB ORDER JUNE Performing Organization Address [facility]/ZIP Co de Phone Number [facility] [place] [place] [address] * (ABNORMAL) Differential, Automated (08/10/2022 1:16 AM EST) Neutrophils % 82.6 % [facility] Neutr Abs (ANC) 8.90(H) 1.70 - 6.10 x10(3)/[facility] LABORATORY Lymphocytes % 13.0 % [facility] Lymphocytes Abs 1.4 0.9 - 3.2 x10(3)/[facility]ORATORY Monocytes % 2.5 % [facility] Monocyte Abs 0.3 0.3 - 0.9 x10(3)/[facility] Eosinophils % 0.7 % [facility] Eosinophils Abs 0.1 0.0 - 0.4 x10(3)/[facility]AT[facility] Basophils % 0.6 % [facility] Basophils Abs 0.1 0.0 - 0.1 x10(3)/[facility] LABORATORY Immature Gran % 0.60 % [facility] Comment: Immature granulocytes(IG's)percentage and absolute count will include metamyelocytes, myelocytes, and promyelocytes. Blood smears from CBCs yielding IG's will be scanned manually for concordance. If this scan disagrees with the automated IG or if promyelocytes are noted, a manual differential will be performed. Polina Gran Abs 0.06(H) 0.00 - 0.04 x10(3)/mc L [facility] Blood 08/10/2022 1:16 AM EST 08/10/2022 1:17 AM EST Narrative Resulting Agency Comment Spec In Lab Jenise Tijerina MD HEMATOLOGY ORDERABLE S [facility] [place] [address] * (ABNORMAL) Hemogram (08/10/2022 1:16 AM EST) WBC 10.8(H) 4.0 - 9.5 x10(3)/[facility] LABORATORY RBC 2.53(L) 4.00 - 5.21 x10(6)/[facility]AT[facility] Hemoglobin 7.4(L) 11.7 - 15.5 g/dL [facility] Hematocrit 22.4(L) 35.7 - 45.8 % [facility] MCV 88.5 82.6 - 94.4 [facility]ORAT[facility] MCH 29.2 27.1 - 32.0 pg [facility] MCHC 33.0 31.7 - 35.0 g/dL [facility] Platelets 507(H) 145 - 357 x10(3)/[facility] LABORATORY RDWSD 47.6(H) 37.0 - 46.0 [facility]AT[facility] RDWCV 14.6(H) 11.5 - 14.1 % [facility] MPV 8.0 7.6 - 12.9 [facility]AT[facility] nRBC % Auto 0.0 % [facility] nRBC Abs Auto 0.000 0.000 - 0.000 x10(3)/[facility] Blood 08/10/2022 1:16 AM EST 08/10/2022 1:17 AM EST Narrative Resulting Agency Comment Spec In Lab Jenise Tijerina MD HEMATOLOGY ORDERABLE S Performing Organization Address [facility] Co de Phone Number [facility] [place] [address] * (ABNORMAL) Hepatic Function Panel (08/10/2022 1:16 AM EST) Total Protein 5.1(L) 6.1 - 8.0 g/dL [facility] Albumin 3.0(L) 3.2 - 5.2 g/dL [facility] AST 12 0 - 30 unit/L [facility] ALT 8 0 - 30 unit/L [facility] Alk Phos 57 35 - 105 unit/L [facility] Total Bilirubin <0.2(L) 0.2 - 1.3 mg/dL [facility] Bili, Direct <0.1 0.0 - 0.3 mg/dL [facility] Blood 08/10/2022 1:16 AM EST 08/10/2022 1:17 AM EST Narrative Resulting Agency Comment Spec In Lab Jeremy Metzger MD CHEMISTRY ORDERABLES Performing Organization Address [facility] Co de Phone Number [facility] [place] [address] * (ABNORMAL) Basic Metabolic Panel (non-fasting) (08/10/2022 1:16 AM EST) Glucose Lvl 119 65 - 199 mg/dL [facility] Comment:Diabetes: >=200 mg/d L plus symptoms BUN 6(L) 8 - 18 mg/dL [facility] Creatinine 0.59(L) 0.70 - 1.20 mg/dL [facility] Sodium 130(L) 135 - 145 mmol/L [facility] Potassium 3.6 3.5 - 5.0 mmol/L [facility] Comment: Please note: ??Patients with WBC >100,000 may have falsely elevated Potassium levels. ??For accurate Potassium quantification in these patients send serum separator tube (gold top) for subsequent determinations. ??Contact the Clinical Chemistry Laboratory if there are any questions. Chloride 95(L) 98 - 107 mmol/L [facility] CO2 24 22 - 31 mmol/L [facility] Anion Gap 11 5 - 15 mmol/L [facility] Calcium 7.8(L) 8.5 - 10.5 mg/dL [facility] Comment:result rechecked-KS Estimated GFR 101 >=60 mL/min/1. 73 m?? [facility] Comment: This patient's estimated [...] and symptoms in addition to eGFR. Blood 08/10/2022 1:16 AM EST 08/10/2022 1:17 AM EST Narrative Resulting Agency Comment Spec In Lab Jeremy Metzger MD CHEMISTRY ORDERABLES [facility] [place] [address] * (ABNORMAL) Ferritin (08/10/2022 1:16 AM EST) [facility] Signature Ferritin 23(L) 30 - 400 ng/mL [facility] Comment: Pediatric reference ranges not verified at [facility], interpret with caution. Reference ranges for females greater than 50 years of age approach values for men, i.e., 30-400 ng/mL. Blood 08/10/2022 1:16 AM EST 08/10/2022 1:17 AM EST Narrative Resulting Agency Comment Spec In Lab Jeremy Metzger MD CHEMISTRY ORDERABLES Performing Organization Address [facility] Co de Phone Number [facility] [place] [address] * (ABNORMAL) Iron and TIBC (08/10/2022 1:16 AM EST) Iron 18(L) 30 - 150 mcg/dL [facility] TIBC 213(L) 250 - 450 mcg/dL [facility] Iron Saturation 8(L) 20 - 50 % [facility] Blood 08/10/2022 1:16 AM EST 08/10/2022 1:17 AM EST Narrative Resulting Agency Comment Spec In Lab Jeremy Metzger MD CHEMISTRY ORDERABLES Performing Organization Address [facility] Co de Phone Number [facility] [place] [place] [address] * Sedimentation rate (08/10/2022 1:16 AM EST) Pathologist [facility] [place] Sed Rate 26 2 - 39 mm/hr [facility] Comment: Effective August 06, 2019 new capillary photometric technology has resulted in a change in reference ranges. It is recommended that each ESR result be reviewed with its own age appropriate reference range. Blood 08/10/2022 1:16 AM EST 08/10/2022 1:17 AM EST Narrative Resulting Agency Comment Spec In Lab Jeremy Metzger MD HEMATOLOGY ORDERABLE S Performing Organization Address City/[facility]/ZIP Co de Phone Number [facility] [place] [place] [address] * Shiga Toxin Detection (08/09/2022 7:18 PM EST) Pathologist [facility] [place] Shiga Toxin Assay EIA Negative for Shiga Toxin 1 EIA Negative for Shiga Toxin 2 [facility] Stool 08/09/2022 7:18 PM EST 08/09/2022 8:04 PM EST Narrative Resulting Agency Comment Spec In Lab Basil De La Rosa MD MICROBIOLOGY - GENER AL ORDERABLES Performing Organization Address [facility] Co de Phone Number [facility] [place] [address] * Campylobacter Antigen (08/09/2022 7:18 PM EST) Campylobacter Ag Immunoassay Negative for Campylobacter Antigen [facility] Stool 08/09/2022 7:18 PM EST 08/09/2022 8:04 PM EST Narrative Resulting Agency Comment Spec In Lab Basil De La Rosa MD MICROBIOLOGY - GENER AL ORDERABLES Performing Organization Address [facility] Phone Number [facility] [place] [address] * Stool culture (08/09/2022 7:18 PM EST) Stool Culture No enteric pathogens isolated [facility] Stool 08/09/2022 7:18 PM EST 08/09/2022 8:04 PM EST Narrative Resulting Agency Comment Spec In Lab Basil De La Rosa MD MICROBIOLOGY - GENER AL ORDERABLES Performing Organization Address [facility] de Phone Number [facility] [place] [address] * (ABNORMAL) Fecal Lactoferrin (08/09/2022 7:18 PM EST) Stool WBC Positive(A ) Negative [facility] Stool 08/09/2022 7:18 PM EST 08/09/2022 8:03 PM EST Narrative Resulting Agency Comment Spec In Lab Jeremy Metzger MD MICROBIOLOGY - GENER AL ORDERABLES Performing Organization Address [facility] Co de Phone Number [facility] [place] [address] * C. Difficile Screen (08/09/2022 7:18 PM EST) C Diff Screen Negative Negative [facility] Comment: PCR Neg C. diff?? Negative (GDH positive, toxin antigen negative, toxin PCR negative) Specimen is negative for C. difficile toxin genetic marker. This test indicates that C. difficile is very unlikely, and does not need to be repeated to rule out disease. If patient is having diarrhea suspected to be from an infectious cause, then Soap & Water Contact Precautions are still required. Stool 08/09/2022 7:18 PM EST 08/09/2022 8:03 PM EST Narrative Resulting Agency Comment Spec In Lab Basil De La Rosa MD MICROBIOLOGY - GENER AL ORDERABLES Performing Organization Address [facility] de Phone Number [facility] [place] [phone] * (ABNORMAL) Calprotectin, Stool (08/09/2022 7:17 PM EST) Pathologist [facility] [place] Calprotectin, Stool >2,000(H) <=79 mcg/g [facility] Comment: Calprotectin Concentration ? Interpretation ? < 80 mcg/g ?Normal ? 80 ? 160 mcg/g ?Borderline ? >160 mcg/g ?Elevated Stool 08/09/2022 7:17 PM EST 08/09/2022 7:33 PM EST Narrative Resulting Agency Comment Spec In Lab Basil De La Rosa MD CHEMISTRY ORDERABLES Performing Organization Address [facility] [facility] de Phone Number [facility] [place] [address] * CT Abdomen & Pelvis w Contrast (08/09/2022 12:54 PM EST) Anatomical Region Laterality Modality Abdomen, Pelvis Computed Tomogra phy Impressions 08/09/2022 1:09 PM EST Descending and rectosigmoid colitis. No abscess nor perforation. Thank you for letting us participate in the care of this patient. ??If you are a health care provider and have any questions regarding this report, please contact the number below. ??For patients who have questions please contact the health home care administrator that requested your imaging first. ? Electronically signed by: Kiara Chance MD, [facility] ([phone]), at 08/09/2022 1:09 PM Narrative 08/09/2022 1:09 PM EST EXAMINATION: CT ABDOMEN AND PELVIS W CONTRAST CLINICAL HISTORY: hx ulc colitis with worsened pain and hematochezia TECHNIQUE: Helical CT of the abdomen and pelvis was performed following the intravenous administration of contrast. Administered 71.0 ml of OMNIPAQUE 350.00 mg/ml. Oral contrast was not administered. COMPARISON: None FINDINGS: Lower chest: Normal. Liver: Normal size and attenuation without lesions. Bile ducts: Nondilated. Gallbladder: No calcified gallstones. Normal caliber wall. Pancreas: Normal attenuation without ductal dilatation. Spleen: Normal. Adrenals: Normal. Kidneys: Normal. Urinary Bladder: Collapsed Vasculature: Smooth-walled normal caliber abdominal aorta. Patent mesenteric and renal artery origins. Patent hepatic and portal veins. Lymph Nodes: No enlarged lymph nodes. Bowel: Thickened edematous long segment descending and rectosigmoid colon with mucosal hyperenhancement. Findings equivocal for thickening of the transverse colon. Affect the descending and rectosigmoid colon shows trace pericolonic stranding. Normal caliber loops of small bowel. Peritoneum and mesentery: No ascites, free air, or loculated fluid collection. Abdominal wall: Normal. Reproductive organs: Normal contours Osseous structures: Bilateral L5 pars defects with grade 1 anterolisthesis of L5 on S1 and lumbosacral degenerative changes. Procedure Note Kiara Chance MD - 08/09/2022 EXAMINATION: CT ABDOMEN AND PELVIS W CONTRAST CLINICAL HISTORY: hx ulc colitis with worsened pain and hematochezia TECHNIQUE: Helical CT of the abdomen and pelvis was performed followingthe intravenous administration of contrast. Administered 71.0 ml of XEBRQWDOY957.00 mg/ml. Oral contrast was not administered. COMPARISON: None FINDINGS: Lower chest: Normal. Liver: Normal size and attenuation without lesions. Bile ducts: Nondilated. Gallbladder: No calcified gallstones. Normal caliber wall. Pancreas: Normal attenuation without ductal dilatation. Spleen: Normal. Adrenals: Normal. Kidneys: Normal. Urinary Bladder: Collapsed Vasculature: Smooth-walled normal caliber abdominal aorta. Patentmesenteric and renal artery origins. Patent hepatic and portal veins. Lymph Nodes: No enlarged lymph nodes. Bowel: Thickened edematous long segment descending and rectosigmoid colonwith mucosal hyperenhancement. Findings equivocal for thickening of thetransverse colon. Affect the descending and rectosigmoid colon shows tracepericolonic stranding. Normal caliber loops of small bowel. Peritoneum and mesentery: No ascites, free air, or loculated fluidcollection. Abdominal wall: Normal. Reproductive organs: Normal contours Osseous structures: Bilateral L5 pars defects with grade 1 anterolisthesisof L5 on S1 and lumbosacral degenerative changes. IMPRESSION Descending and rectosigmoid colitis. No abscess nor perforation. Thank you for letting us participate in the care of this patient. If youare a health care provider and have any questions regarding this report,please contact the number below. For patients who have questions please contactthe health home care administrator that requested your imaging first. Basil De La Rosa MD IM CT ORDERABLES * L-Lactate2 Whole Blood (08/09/2022 11:52 AM EST) Lactate WB 1.0 0.5 - 2.2 mmol/L [facility] Blood 08/09/2022 11:5 2 AM EST 08/09/2022 11:52 AM EST Emergency Dept CHEMISTRY ORDERABLE S [facility] [place] [address] * (ABNORMAL) CRP, acute inflammation (08/09/2022 10:46 AM EST) CRP 30.4(H) <=4.9 mg/L [facility] Blood Venous Draw / Unknown 08/09/2022 10:46 AM EST 08/09/2022 11:44 AM EST Narrative Resulting Agency Comment Spec In Lab Basil De La Rosa MD CHEMISTRY ORDERABLES Performing Organization Address City/[facility]/ZIP Co de Phone Number [facility] [place] [address] * (ABNORMAL) Differential, Automated (08/09/2022 10:46 AM EST) Pathologist [facility] [place] Neutrophils % 78.5 % [facility] Neutr Abs (ANC) 6.87(H) 1.70 - 6.10 x10(3)/mc L [facility] Lymphocytes % 14.6 % [facility] Lymphocytes Abs 1.3 0.9 - 3.2 x10(3)/ L [facility] Monocytes % 5.6 % [facility] Monocyte Abs 0.5 0.3 - 0.9 x10(3)/mc L [facility] Eosinophils % 0.3 % [facility] Eosinophils Abs 0.0 0.0 - 0.4 x10(3)/mc L [facility] Basophils % 0.3 % [facility] Basophils Abs 0.0 0.0 - 0.1 x10(3)/mc L [facility] Immature Gran % 0.70 % [facility] Comment: Immature granulocytes(IG's)percentage and absolute count will include metamyelocytes, myelocytes, and promyelocytes. Blood smears from CBCs yielding IG's will be scanned manually for concordance. If this scan disagrees with the automated IG or if promyelocytes are noted, a manual differential will be performed. Polina Gran Abs 0.06(H) 0.00 - 0.04 x10(3)/mc L [facility] Blood 08/09/2022 10:4 6 AM EST 08/09/2022 11:42 AM EST Narrative Resulting Agency Comment Spec In Lab Marilyn Marc MD HEMATOLOGY ORDERAB LES [facility] [place] [address] * (ABNORMAL) Hemogram (08/09/2022 10:46 AM EST) WBC 8.8 4.0 - 9.5 x10(3)/[facility] LAB[facility]AT[facility] RBC 2.98(L) 4.00 - 5.21 x10(6)/[facility] Hemoglobin 8.6(L) 11.7 - 15.5 g/dL [facility] Hematocrit 26.1(L) 35.7 - 45.8 % [facility] MCV 87.6 82.6 - 94.4 [facility] MCH 28.9 27.1 - 32.0 pg [facility] MCHC 33.0 31.7 - 35.0 g/dL [facility] Platelets 665(H) 145 - 357 x10(3)/[facility] LABORATORY RDWSD 48.0(H) 37.0 - 46.0 [facility] LAB[facility]ATORY RDWCV 14.9(H) 11.5 - 14.1 % [facility] MPV 8.0 7.6 - 12.9 [facility] LABORATORY nRBC % Auto 0.0 % [facility] nRBC Abs Auto 0.000 0.000 - 0.000 x10(3)/[facility] Blood 08/09/2022 10:4 6 AM EST 08/09/2022 11:42 AM EST Narrative Resulting Agency Comment Spec In Lab Marilyn Marc MD HEMATOLOGY ORDERAB LES Performing Organization Address [facility]/ZIP Co de Phone Number [facility] [place] [address] * Lipase (08/09/2022 10:46 AM EST) Lipase 18 0 - 60 unit/L [facility] Blood 08/09/2022 10:4 6 AM EST 08/09/2022 11:42 AM EST Narrative Resulting Agency Comment Spec In Lab Basil De La Rosa MD CHEMISTRY ORDERABLES Performing Organization Address [facility] Phone Number [facility] [place] [address] * (ABNORMAL) Hepatic Function Panel (08/09/2022 10:46 AM EST) Total Protein 5.8(L) 6.1 - 8.0 g/dL [facility] Albumin 3.1(L) 3.2 - 5.2 g/dL [facility] AST 13 0 - 30 unit/L [facility] ALT 12 0 - 30 unit/L [facility] Alk Phos 65 35 - 105 unit/L [facility] Total Bilirubin <0.2(L) 0.2 - 1.3 mg/dL [facility] Bili, Direct <0.1 0.0 - 0.3 mg/dL [facility] Blood 08/09/2022 10:4 6 AM EST 08/09/2022 11:42 AM EST Narrative Resulting Agency Comment Spec In Lab Basil De La Rosa MD CHEMISTRY ORDERABLES Performing Organization Address City/[facility] Co de Phone Number [facility] [place] [address] * (ABNORMAL) Basic Metabolic Panel (non-fasting) (08/09/2022 10:46 AM EST) Glucose Lvl 122 65 - 199 mg/dL [facility] Comment:Diabetes: >=200 mg/d L plus symptoms BUN 9 8 - 18 mg/dL [facility] Creatinine 0.73 0.70 - 1.20 mg/dL [facility] Sodium 131(L) 135 - 145 mmol/L [facility] Potassium 3.6 3.5 - 5.0 mmol/L [facility] Comment: Please note: ??Patients with WBC >100,000 may have falsely elevated Potassium levels. ??For accurate Potassium quantification in these patients send serum separator tube (gold top) for subsequent determinations. ??Contact the Clinical Chemistry Laboratory if there are any questions. Chloride 93(L) 98 - 107 mmol/L [facility] CO2 27 22 - 31 mmol/L [facility] Anion Gap 11 5 - 15 mmol/L [facility] Calcium 8.8 8.5 - 10.5 mg/dL [facility] Estimated GFR 92 >=60 mL/min/1. 73 m?? [facility] Comment: This patient's estimated [...] and symptoms in addition to eGFR. Blood 08/09/2022 10:4 6 AM EST 08/09/2022 11:42 AM EST Narrative Resulting Agency Comment Spec In Lab Basil De La Rosa MD CHEMISTRY ORDERABLES [facility] [place] [place] [address] documented in this encounter Visit Diagnoses Diagnosis Ulcerative colitis- Primary Ulcerative colitis, unspecified Ulcerative colitis Ulcerative colitis, unspecified documented in this encounter Admitting Diagnoses Diagnosis Ulcerative colitis Ulcerative colitis, unspecified documented in this encounter Administered Medications Inactive Administered Medications - up to 3 most recent administrations Medication Order MAR Action Action Date Dose Rate Site acetaminophen (Tylenol) tablet 650 mg 650 mg, Oral, EVERY 6 HOURS PRN, Starting on Sun08/09/22 at 1533, Until Sun08/14/22 at 1639, Pain, Fever, Administer for temperature greater than or equal to 38.2 degrees celsius. Maximum daily dose of acetaminophen from all sources not to exceed 4,000 mg. When ordered for pain, acetaminophen should be given even when other ordered pain medications are indicated., Routine Given 08/13/2022 11:34 PM EST 650 mg Given 08/13/2022 5:17 PM EST 650 mg Given 08/12/2022 8:13 PM EST 325 mg acetaminophen (Tylenol) tablet 650 mg 650 mg, Oral, ONCE, 1 dose, On Sun08/11/22 at 1530, Please give before Remicade infusion. Maximum dose of acetaminophen is 4000 mg from all sources in 24 hours. When ordered for pain, acetaminophen should be given even when other ordered pain medications are indicated., Routine Given 08/11/2022 3:40 PM EST 650 mg atovaquone (Mepron) (150 mg/mL) oral liquid 1,500 mg 1,500 mg, Oral, DAILY, First dose on Sun08/12/22 at 1200, Until Discontinued, Administer with food, Routine, Indication for (Active or Suspected): Prophylaxis Given 08/14/2022 8:54 AM EST 1,500 mg Given 08/13/2022 8:54 AM EST 1,500 mg Given 08/12/2022 1:18 PM EST 1,500 mg diphenhydrAMINE (Benadryl) (50 mg/mL) injection 12.5-50 mg 12.5-50 mg, Intravenous, ONCE PRN, 1 dose, Starting on Sun08/11/22 at 1453, Until Sun08/14/22 at 1639, Itching, infusion reaction, For severe infusion reactions (hypotension, hypertension, chest pain, dyspnea, wheezing, palpitations, vomiting) STOP give 50 mg IV once. For Moderate infusion reactions (pruritus, urticaria, arthralgia, rash, nausea): If already premedicated, give 12.5 mg IV once. OR If not premedicated give 25 mg IV once. See infusion or nursing notes for infusion admin instructions., Routine diphenhydrAMINE (Benadryl) capsule 50 mg 50 mg, Oral, ONCE, 1 dose, On Sun08/11/22 at 1530, Please give before Remicade infusion, Routine Given 08/11/2022 3:42 PM EST 50 mg enoxaparin (Lovenox) (40 mg/0.4 mL) subcutaneous injection 40 mg 40 mg, Subcutaneous, EVERY 24 HOURS SCHEDULED (Daily), First dose on Sun08/10/22 at 0900, Until Discontinued, Routine Given 08/12/2022 8:31 AM EST 40 mg Given 08/11/2022 9:07 AM EST 40 mg ferrous sulfate EC tablet 325 mg 325 mg, Oral, EVERY OTHER DAY, First dose on Sun08/11/22 at 1015, Until Discontinued, DO NOT CRUSH OR OPEN. Take with food or water. , Routine Given 08/13/2022 9:02 AM EST 325 mg Given 08/11/2022 11:11 AM EST 325 mg hydrocortisone sod succ (pf) (Solu-CORTEF) (100 mg/2 mL) injection 100 mg 100 mg, Intravenous, EVERY 8 HOURS SCHEDULED, First dose on Sun08/09/22 at 1738, Until Discontinued Given 08/13/2022 5:51 AM EST 100 mg Given 08/12/2022 8:12 PM EST 100 mg Given 08/12/2022 2:49 PM EST 100 mg inFLIXimab-abda (Renflexis) 600 mg in sodium chloride 0.9% 310 mL infusion 600 mg, Intravenous, ONCE, 1 dose, On Sun08/11/22 at 1600, Infuse using 0.2 micron in-line filter. Do not shake. Infusion rate may be slowed or temporarily stopped for mild infusion reactions or to improve tolerability. STANDARD (2 HOUR) ADMIN INSTRUCTIONS 1. Time 0:00: Start at 10 mL/hr for 15 min. 2. Time 0:15: Increase to 20 mL/hr for 15 min. 3. Time 0:30: Increase to 40 mL/hr for 15 min. 4. Time 0:45: Increase to 80 mL/hr for 15 min. 5. Time 1:00: Increase to 160 mL/hr for 30 min. 6. Time 1:30: Increase to FINAL STANDARD RATE (found in Job Aid) to complete infusion over remaining 30 minutes. RAPID (1 HOUR) ADMIN INSTRUCTIONS (for qualifying patients ONLY) 1. Time 0:00: Start at 100 mL/hour for 15 min. 2. Time 0:15: Increase to FINAL RAPID RATE (found in Job Aid) to complete infusion over remaining 45 minutes., Patient is a candidate for rapid infusion (over 1 hour) inFLIXimab AFTER 3 induction doses are given at the standard infusion duration of 2 hours? No, Indication for Inpatient Use: Severe IBD Rate/Dose Change 08/11/2022 6:16 PM EST 160 mL/hr Rate/Dose Change 08/11/2022 5:47 PM EST 80 mL/h r Rate/Dose Change 08/11/2022 5:27 PM EST 40 mL/h r iohexoL (Omnipaque) (350 mg/mL) solution 0-200 mL 0-200 mL, Intravenous, ONCE PRN, 1 dose, Starting on Sun08/09/22 at 1251, Until Sun08/09/22 at 1251, Per Protocol, Warning Vesicant/Irritant Medication , Radiology Contrast, Routine Given 08/09/2022 12:51 PM EST 71 mLs iron sucrose (Venofer) 300 mg in sodium chloride 0.9% 115 mL infusion 300 mg, Intravenous, ONCE, 1 dose, On Laura 08/10/22 at 1630, Administer over 90 Minutes, Patients should be closely monitored for signs of hypersensitivity during and for at least 30 min after each administration. New Bag 08/10/2022 4:55 PM EST 300 mg 76.7 mL/hr lactated Ringers 1,000 mL IV bolus Intravenous, ONCE, 1 dose, On Sun08/09/22 at 1238 New Bag 08/09/2022 1:31 PM EST lactated ringers infusion 100 mL/hr, Intravenous, CONTINUOUS, Starting on Sun08/09/22 at 1821, Until Laura 08/10/22 at 0420 New Bag 08/10/2022 2:22 AM EST 100 mL/hr 100 mL/hr New Bag 08/09/2022 7:03 PM EST 100 mL/hr 100 mL/hr ondansetron (pf) (Zofran) (2 mg/mL) injection 4-8 mg 4-8 mg, Intravenous, EVERY 8 HOURS PRN, Starting on Sun08/09/22 at 1533, Until Sun08/14/22 at 1639, Nausea, Start with 4mg and if ineffective in 30 minutes, give an additional 4mg If multiple antiemetics are ordered, give ondansetron first. ondansetron (Zofran) tablet 4-8 mg 4-8 mg, Oral, EVERY 8 HOURS PRN, Starting on Sun08/09/22 at 1533, Until Sun08/14/22 at 1639, Nausea, Vomiting, If multiple antiemetics are ordered, use ondansetron first. PO Preferred. If patient unable to take PO, may give IV if ordered. Start with 4mg and if ineffective in 45 minutes, give an additional 4mg. If unable to take PO, may give IV., Routine OXcarbazepine (Trileptal) tablet 1,050 mg 1,050 mg, Oral, EVERY 24 HOURS, First dose (after last modification) on Laura 08/10/22 at 1900, Until Discontinued, DO NOT SPLIT, CRUSH OR OPEN Pt reports take it between 7 and 7:30pm, Routine Given 08/13/2022 7:41 PM EST 1,050 mg Given 08/12/2022 6:59 PM EST 1,050 mg Given 08/11/2022 7:06 PM EST 1,050 mg pantoprazole EC (Protonix) tablet 40 mg 40 mg, Oral, DAILY, First dose on Laura 08/10/22 at 1423, Until Discontinued, DO NOT CRUSH OR OPEN Given 08/14/2022 8:58 AM EST 40 mg Given 08/13/2022 9:03 AM EST 40 mg Given 08/12/2022 8:31 AM EST 40 mg potassium chloride ER (K-Dur/Klor-Con) tablet 40 mEq 40 mEq, Oral, EVERY 4 HOURS, 3 doses, First dose on Sun08/11/22 at 0945, Last dose on Sun08/11/22 at 1745, 20 mEq tablet may be dissolved in water for administration, Routine Given 08/11/2022 1:35 PM EST 40 mEq Given 08/11/2022 9:06 AM EST 40 mEq predniSONE (Deltasone) tablet 40 mg 40 mg, Oral, DAILY, First dose on 08/13/22 at 1130, Until Discontinued, Routine Given 08/14/2022 8:58 AM EST 40 mg Given 08/13/2022 11:36 AM EST 40 mg sodium chloride 0.9 % (flush) (BD PosiFlush Normal Saline 0.9) flush 5 mL 5 mL, Intravenous, 2 TIMES DAILY, First dose on Sun08/09/22 at 2100, Until Discontinued, Routine Given 08/13/2022 9:04 AM EST 5 mLs Given 08/12/2022 9:00 PM EST 5 mLs Given 08/12/2022 9:00 AM EST 5 mLs documented in this encounter Active and Recently Administered Medications Times are shown in EST. Scheduled Medication Order 08/12/2022 08/13/2022 08/14/2022 atovaquone (Mepron) (150 mg/mL) oral liquid 1,500 mg 1,500 mg, Oral, DAILY, First dose on 08/12/22 at 1200, Until Discontinued, Administer with food, Routine, Indication for (Active or Suspected): Prophylaxis 1318 (Given - Provider: Rand Salgado RN) 0854 (Given - Provider: Mandy Senior, WEN) 0854 (Given - Provider: Mandy Senior, WEN) enoxaparin (Lovenox) (40 mg/0.4 mL) subcutaneous injection 40 mg (CANCELED) 40 mg, Subcutaneous, EVERY 24 HOURS SCHEDULED (Daily), First dose on Laura 08/10/22 at 0900, Until Discontinued, Routine 0831 (Given - Provider: Aline Brunner RN) ferrous sulfate EC tablet 325 mg 325 mg, Oral, EVERY OTHER DAY, First dose on Sun08/11/22 at 1015, Until Discontinued, DO NOT CRUSH OR OPEN. Take with food or water. , Routine 0902 (Given - Provider: Mandy Senior RN) hydrocortisone sod succ (pf) (Solu-CORTEF) (100 mg/2 mL) injection 100 mg (CANCELED) 100 mg, Intravenous, EVERY 8 HOURS SCHEDULED, First dose on Sun08/09/22 at 1738, Until Discontinued 0751 (Given - Provider: Aline Brunner RN)1449 (Given - Provider: Rand Salgado, WEN)2011 (Given - Provider: Aline Brunner, WEN) 0551 (Given - Provider: Aline Brunner RN) OXcarbazepine (Trileptal) tablet 1,050 mg 1,050 mg, Oral, EVERY 24 HOURS, First dose (after last modification) on Sun08/10/22 at 1900, Until Discontinued, DO NOT SPLIT, CRUSH OR OPEN Pt reports take it between 7 and 7:30pm, Routine 1859 (Given - Provider: Rand Salgado RN) 1941 (Given - Provider: Jonathan Fox RN) pantoprazole EC (Protonix) tablet 40 mg 40 mg, Oral, DAILY, First dose on Sun08/10/22 at 1423, Until Discontinued, DO NOT CRUSH OR OPEN 0831 (Given - Provider: Aline Brunner RN) 0903 (Given - Provider: Mandy Senior RN) 0858 (Given - Provider: Mandy Senior RN) predniSONE (Deltasone) tablet 40 mg 40 mg, Oral, DAILY, First dose on Sun08/13/22 at 1130, Until Discontinued, Routine 1136 (Given - Provider: Mandy Senior RN) 0858 (Given - Provider: Mandy Senior RN) sodium chloride 0.9 % (flush) (BD PosiFlush Normal Saline 0.9) flush 5 mL 5 mL, Intravenous, 2 TIMES DAILY, First dose on Sun08/09/22 at 2100, Until Discontinued, Routine 0900 (Given - Provider: Aline Brunner RN)2100 (Given - Provider: Aline Brunner RN) 0904 (Given - Provider: Mandy Senior RN)2334 (Not Given - Provider: Jonathan Fox RN - Reason: See comment - Comment: No PIV present) 0900 (Not Given - Provider: Mandy Senior RN - Reason: See comment - Comment: no IV access) PRN Medication Order 08/12/2022 08/13/2022 08/14/2022 acetaminophen (Tylenol) tablet 650 mg 650 mg, Oral, EVERY 6 HOURS PRN, Starting on Sun08/09/22 at 1533, Until Sun08/14/22 at 1639, Pain, Fever, Administer for temperature greater than or equal to 38.2 degrees celsius. Maximum daily dose of acetaminophen from all sources not to exceed 4,000 mg. When ordered for pain, acetaminophen should be given even when other ordered pain medications are indicated., Routine 2012 (Given - Provider: Aline Brunner RN) 171 (Given - Provider: Mandy Senior RN)2334 (Given - Provider: Jonathan Fox RN) diphenhydrAMINE (Benadryl) (50 mg/mL) injection 12.5-50 mg 12.5-50 mg, Intravenous, ONCE PRN, 1 dose, Starting on Sun08/11/22 at 1453, Until Sun08/14/22 at 1639, Itching, infusion reaction, For severe infusion reactions (hypotension, hypertension, chest pain, dyspnea, wheezing, palpitations, vomiting) STOP give 50 mg IV once. For Moderate infusion reactions (pruritus, urticaria, arthralgia, rash, nausea): If already premedicated, give 12.5 mg IV once. OR If not premedicated give 25 mg IV once. See infusion or nursing notes for infusion admin instructions., Routine lidocaine (Xylocaine) 1% (10 mg/mL) injection 3 mg 3 mg (0.3 mL), Subcutaneous, ONCE PRN, 1 dose, Starting on Sun08/09/22 at 1533, Until Sun08/14/22 at 1639, for discomfort with PIV insertion, Routine ondansetron (pf) (Zofran) (2 mg/mL) injection 4-8 mg(Linked Group 1) 4-8 mg, Intravenous, EVERY 8 HOURS PRN, Starting on Sun08/09/22 at 1533, Until Sun08/14/22 at 1639, Nausea, Start with 4mg and if ineffective in 30 minutes, give an additional 4mg If multiple antiemetics are ordered, give ondansetron first. ondansetron (Zofran) tablet 4-8 mg(Linked Group 1) 4-8 mg, Oral, EVERY 8 HOURS PRN, Starting on Sun08/09/22 at 1533, Until Sun08/14/22 at 1639, Nausea, Vomiting, If multiple antiemetics are ordered, use ondansetron first. PO Preferred. If patient unable to take PO, may give IV if ordered. Start with 4mg and if ineffective in 45 minutes, give an additional 4mg. If unable to take PO, may give IV., Routine senna-docusate (Pericolace) 8.6-50 mg per tablet 2 tablet 2 tablet, Oral, 2 TIMES DAILY PRN, Starting on Sun08/09/22 at 1533, Until Sun08/14/22 at 1639, Constipation, Routine sodium chloride 0.9 % (flush) (BD PosiFlush Normal Saline 0.9) flush 5-20 mL 5-20 mL, Intravenous, EVERY 1 MIN PRN, Starting on Sun08/09/22 at 1533, Until Sun08/14/22 at 1639, flush, Flush pertains to all indwelling lines. Flush per protocol found in the job aid using the link provided on this medication record., Routine Linked Groups Order Group 1: ondansetron (Zofran) tablet 4-8 mgJump to med 4-8 mg, Oral, EVERY 8 HOURS PRN, Starting on Sun08/09/22 at 1533, Until Sun08/14/22 at 1639, Nausea, Vomiting, If multiple antiemetics are ordered, use ondansetron first. PO Preferred. If patient unable to take PO, may give IV if ordered. Start with 4mg and if ineffective in 45 minutes, give an additional 4mg. If unable to take PO, may give IV., Routine Or ondansetron (pf) (Zofran) (2 mg/mL) injection 4-8 mgJump to med 4-8 mg, Intravenous, EVERY 8 HOURS PRN, Starting on Sun08/09/22 at 1533, Until Sun08/14/22 at 1639, Nausea, Start with 4mg and if ineffective in 30 minutes, give an additional 4mg If multiple antiemetics are ordered, give ondansetron first. documented in this encounter Additional Health Concerns Infection Onset Date Last Indicated Resolved Time Rule Out C. difficile 08/09/2022 08/09/20222021 2:14 PM EST documented as of this encounter Care Teams Printed Forms Proofreader Relationship Specialty Start Date End Date Pradeep Gallardo APRN [address] [id number] PCP - General 07/19/10 documented as of this encounter
--- OUTSIDE RECORDS SUMMARY | 2024-03-19 02:06 | XMS_ITS | Encounter Summary ---
Author Organization [facility] [place] [address] Care Team Providers Care Rubber Compounder Formulator Name Role Phone Pradeep Gallardo APRN Primary Care Provider Encounter Details Date Type Department Care Team (Latest Contact Info) Description 12/01/2016 - 12/01/2016 11:59 PM EDT Hospital Encounter [place] [phone] Pradeep Gallardo APRN [facility] [address] [place] [address] Pain Discharge Disposition: Home Social History Tobacco Use Types Packs/Day Years Used Date Smoking Tobacco: Never Assessed Sex and Gender Information Value Date Recorded Sex Assigned at Not on file Gender Identity Not on file Sexual Orientation Not on file documented as of this encounter Medications at Time of Discharge Medication Sig Dispensed Refills Start Date End Date OXcarbazepine (TRILEPTAL) 300 mg tablet 0 04/04/2002 documented as of this encounter Plan of Treatment Upcoming Encounters Date Type Department Care Team (Late st Contact Info) Description 06/25/2024 9:30 AM EDT Office [place] [phone] Janice Villarreal MD [facility] [place] [address] documented as of this encounter Procedures Procedure Name Priority Date/Time Associated Diagnosis Comments FILM LIBRARY STORAGE ONLY MR SPINE Routine 12/01/2016 12:00 AM EDT Pain documented in this encounter Results * Film Library- Storage Only MR Spine (12/01/2016 12:00 AM EDT) Narrative [facility] - 02/01/2017 3:59 PM EDT This exam is for storage only and is auto-finalizing. Pradeep Gallardo APRN Michelle FILM LIBRARY ORD ERABLES Performing Organization Address City/State/[facility] Co de Phone Number [place], [place] documented in this encounter Visit Diagnoses Diagnosis Pain Generalized pain documented in this encounter Care Teams Rubber Compounder Formulator Relationship Specialty Start Date End Date Pradeep Gallardo APRN [address] [address] PCP - General 07/19/10 documented as of this encounter
--- OUTSIDE RECORDS SUMMARY | 2024-03-19 02:06 | XMS_ITS | Encounter Summary ---
Author Organization [facility] [place] [address] Care Team Providers Care Bi Report Developer Name Role Phone PaulinaPradeep PATRIC Primary Care Provider [phone] Reason for Visit * Reason Comments Thyroid Nodule Encounter Details Date Type Department Care Team (Late st Contact Info) Description 03/12/2018 3:30 PM EDT Office [place] [phone] Katie Almanza MD [facility] [place] [address] Thyroid nodule Social History Tobacco Use Types Packs/Day Years Used Date Smoking Tobacco: Former Cigarettes Q uit: 03/23/2003 Smokeless Tobacco: Never Sex and Gender Information Value Date Recorded Sex Assigned at Not on file Gender Identity Not on file Sexual Orientation Not on file documented as of this encounter Last Filed Vital Signs Vital Sign Reading Time Taken Comments Blood Pressure 147/92 03/12/2018 3:15 PM EDT Pulse 65 03/12/2018 3:15 PM EDT Temperature - - Respiratory Rate - - Oxygen Saturation - - Inhaled Oxygen Concentration - - Weight 67.1 kg (148 lb) 03/12/2018 3:15 PM EDT Height 158.8 cm (5' 2.5) 03/12/2018 3:15 PM EDT Body Mass Index 26.64 03/12/2018 3:15 PM EDT documented in this encounter Progress Notes * Katie Almanza MD - 03/12/2018 3:30 PM EDT Endocrinology Clinic Follow-up Visit Reason for Visit: thyroid nodule reassessment HISTORY OF PRESENT ILLNESS: Ms. Elsa Lujan is a 57 y.o. year old lady with history significant for a predominantly cystic L-sided complex nodule that underwent a diagnostic FNA in December 2016 at a different facility, with benign cytology, and a therapeutic aspiration with me about 1 year ago, in February 2017, under local anestheticwith a 21g needle (could not be aspirated with first FNA with smaller needles). She returns today for re-evaluation of her thyroid nodule. She reports today that she has been starting to have a recurrence of her dysphagia, feels like she needs to clear her throat more recently, expresses interest in having her thyroid cyst drained again. PAST MEDICAL HISTORY: Patient Active Problem List Diagnosis Date Noted ??? Nontoxic single thyroid nodule MEDICATIONS: Medications 03/12/18 1522 Medication Sig Taking? CANASA 1,000 mg Suppository INSERT ONE SUPPOSITORY RECTALLY ONCE OR TWICE A DAY Yes cholecalciferol, Vitamin D3, 400 unit Tablet Take by mouth daily. Yes TRILEPTAL 300 mg Tablet 400 mg daily. Yes ALLERGIES: Allergies Allergen Reactions ??? Sulfa (Sulfonamide Antibiotics) Hives SOCIAL HISTORY: History Smoking Status ??? Former Smoker ??? Quit date: 03/23/2003 Smokeless Tobacco ??? Never Used FAMILY HISTORY: No family history on file. REVIEW OF SYSTEMS: All 12 systems reviewed and negative except as noted per HPI. PHYSICAL EXAM: Vitals Office Visit from 03/12/2018 in Endocrinology at [place] Weight 67.1 kg (148 lb) Height 158.8 cm (5' 2.5) BSA (Calculated - sq m) 1.72 sq meters BMI (Calculated) 26.64 Heart Rate 65 BP (!) 147/92 Gen: NAD, AAOx3, speaking full sentences, calm very pleasant demeanor Skin: warm and dry Eyes: PERRL, EOMI, anicteric sclerae without injection, no proptosis or lid lag ENT: moist oral mucosa Neck: mild thyromegaly L>R, L-sided thyroid nodule palpable, no lymphadenopathy Pulm: CTAB, no stridor Cardiac: reg s1s2, no m/r/g MSK: 5/5 strength in all muscle groups of the upper and lower extremities Neuro: 2+patellar DTRs, no clonus, no delay of the relaxation phase ASSESSMENT: 57 yo F with a symptomatic predominantly cystic complex nodule in the L-hemithyroid. Size is slightly enlarged in only 1 dimension as compared to post-aspiration nodule dimensions from 1 year ago, is slightly smaller in another dimension, and stable at 2.8cm in the largest dimension (longitudinal). However, she is more symptomatic now versus after her therapeutic aspiration 1 year ago. Unfortunately the cystic component of her nodule is full of septations, which makes it unlikely that I could therapeutically aspirate enough cystic fluid via FNA to provide her significant symptomatic relief. Therefore, if her symptoms become sufficiently bothersome to her (per her self-assessment), I would recommend a L hemithyroidectomy as the next step. She would like to return in a few months for reassessment. PLAN: --follow-up in 5 months for reassessment of symptomatic L thyroid nodule KATIE ALMANZA MD [employer] Farmstorage and backup administrator Section of Endocrinology [facility] * Katie Almanza MD - 03/12/2018 3:30 PM EDT THYROID ULTRASOUND Date: 03/12/18 Indication: thyroid nodule reassessment Comparison: February 2017 Real time images of the thyroid gland were obtained using a BK US machine. All measurements are given as AP x Transverse x Longitudinal. Right Lobe: The right lobe measures 1.3 x 1.5 x 4.2 cm, with mildly heterogeneous echotexture. No nodules. Left Lobe: Predominantly cystic complex nodule, almost completely replacing the L thyroid lobe, currently measures 1.7 x 1.9 x 2.8 cm (February 2017 - pre-asp 2.2 x 2.3 x 3.0 cm, post-asp 1.4 x 2.2 x 2.8 cm). Cystic area appears highly septated on today's exam. Lateral neck: No abnormal lymph nodes were seen. Isthmus: The isthmus measures 0.23 cm in the AP dimension. Impression: 2.8cm L complex nodule overall stable in size, slightly increased in the transverse dimension, but decreased in AP dimension. The nodule is ~60% cystic, and the cystic area contains multiple septations, resulting in many small pockets of fluid. Katie Almanza MD [employer] and backup administrator Section of Endocrinology [facility] documented in this encounter Plan of Treatment Upcoming Encounters Date Type Department Care Team (Late st Contact Info) Description 06/25/2024 9:30 AM EDT Office [place] [address] Janice Villarreal MD [facility] [place] [address] documented as of this encounter Procedures Procedure Name Priority Date/Time Associated Diagnosis Comments THYROGLOBULIN ANTIBODY Routine 8 4:06 PM EDT Thyroid nodule THYROID PEROXIDASE ANTIBODY Routine 03/12/2018 4:06 PM EDT Thyroid nodule T3 TOTAL Routine 03/12/2018 4:06 PM EDT Thyroid nodule TSH Routine 03/12/2018 4:06 PM EDT Thyroid nodule T4, FREE Routine 03/12/2018 4:06 PM EDT Thyroid nodule documented in this encounter Results * Thyroglobulin Antibody (03/12/2018 4:06 PM EDT) Thyroglob Ab <20.0 0.0 - 40.0 IU/mL [facility] Blood specimen (specimen) 03/12/2018 4:06 PM EDT 03/13/2018 7:24 AM EDT Narrative Resulting Agency Comment Spec In Lab Katie Almanza MD CHEMISTRY ORDERABLES [facility] [place] [address] * (ABNORMAL) Thyroid peroxidase antibody (03/12/2018 4:06 PM EDT) Thyroperox Ab 89(H) <=34 IU/mL [facility] Blood specimen (specimen) 03/12/2018 4:06 PM EDT 03/13/2018 7:24 AM EDT Narrative Resulting Agency Comment Spec In Lab Katie Almanza MD IMMUNOLOGY ORDERABLE S [facility] [place] [address] * T3 Total (03/12/2018 4:06 PM EDT) T3, Total 101 75 - 170 ng/dL [facility] Blood specimen (specimen) 03/12/2018 4:06 PM EDT 03/12/2018 4:16 PM EDT Narrative Resulting Agency Comment Spec In Lab Katie Almanza MD CHEMISTRY ORDERABLES Performing Organization Address City/[facility]/ZIP Co de Phone Number [facility] [place] [address] * T4, free (03/12/2018 4:06 PM EDT) Free T4 1.22 0.93 - 1.70 ng/dL [facility] Blood specimen (specimen) 03/12/2018 4:06 PM EDT 03/12/2018 4:16 PM EDT Narrative Resulting Agency Comment Spec In Lab Katie Almanza MD CHEMISTRY ORDERABLES [facility] [place] [address] * TSH (03/12/2018 4:06 PM EDT) TSH 1.49 0.27 - 4.20 mlU/ML [facility] Blood specimen (specimen) 03/12/2018 4:06 PM EDT 03/12/2018 4:16 PM EDT Narrative Resulting Agency Comment Spec In Lab Katie Almanza MD CHEMISTRY ORDERABLES [facility] [place] [address] documented in this encounter Visit Diagnoses Diagnosis Thyroid nodule Nontoxic uninodular goiter documented in this encounter Care Teams Bi Report Developer Relationship Specialty Start Date End Date Pradeep Gallardo APRN [address] [address] PCP - General 07/19/10 documented as of this encounter
--- OUTSIDE RECORDS SUMMARY | 2024-03-19 02:06 | XMS_ITS | Encounter Summary ---
[place] [address] Care Team Providers Care Crepe Box Tender Name Role Phone Pradeep Gallardo APRN Primary Care Provider [phone] Reason for Referral * Consultation (Urgent) - Closed Specialty Diagnoses / Procedures Referred By Merari t Referred To Contact Gastroenterology Diagnoses Ulcerative colitis without complications, unspecified location w/in 2-4 WEEKS -Ulcerative colitis Alina Mackenzie APRN [address] [place] [address] [facility] [place] [address] Referral ID Status Reason Start Date Expiration Date V isits Requested Visits Authorized [id number] Closed Consult, Test & Treat PCP Updated and/or Approved 08/01/2022 08/01/2023 6 6 Encounter Details Date Type Department Care Team (Late st Contact Info) Description 08/01/2022 Transcribe Orders eDH Incoming Referrals [phone] Alina Mackenzie APRN [address] [place] [address] Ulcerative colitis without complications, unspecified location Social History Tobacco Use Types Packs/Day Years [...] 9:30 AM EDT Office [place] [address] Janice Villarreal MD [facility] [place] [address] Scheduled Referrals Name Type Priority Associated Diagnoses Order Schedule Referral to Gastroenterology Outpatient Referral Urgent Ulcerative colitis without complications, unspecified location Ordered: 08/01/2022 documented as of this encounter Visit Diagnoses Diagnosis Ulcerative colitis without complications, unspecified location documented in this encounter Care Teams Crepe Box Tender Relationship Specialty Start Date End Date Pradeep Gallardo APRN [address] [address] PCP - General 07/19/10 documented as of this encounter
--- OUTSIDE RECORDS SUMMARY | 2024-03-19 02:06 | XMS_ITS | Encounter Summary ---
Author Organization [facility] [place] [address] Care Team Providers Care Visual Design Lead Name Role Phone Pradeep Gallardo APRN Primary Care Provider Encounter Details Date Type Department Care Team (Latest Contact Info) Description 08/09/2022 Travel Social History Tobacco Use Types Packs/Day [...] AM EDT Office [place] [address] Janice Villarreal MD [facility] [place] [address] documented as of this encounter Visit Diagnoses Not on filedocumented in this encounter Additional Health Concerns Infection Onset Date Last Indicated Resolved Time Rule Out C. difficile 08/09/2022 08/09/20222021 2:14 PM EST documented as of this encounter Care Teams Visual Design Lead Relationship Specialty Start Date End Date Pradeep Gallardo APRN [facility] [address] [place] [address] PCP - General 07/19/10 documented as of this encounter
[2024-03-19] MEDS: Loratidine 10 MG TAB PO (09:46)
[2024-03-19] MEDS: Normal Saline Flush 10 ML SYR IVP (09:46)
[2024-03-19] MEDS: Acetaminophen 325 MG TAB 650 MG PO (09:46)
[2024-03-19] MEDS: Hydrocortisone SOD SUC. 100 MG VIAL IVP (09:47)
[2024-03-19] MEDS: inFLIXimab 300 MG in Normal Saline 250 ML 125 MG IVPB (10:06)
[2024-03-19 10:10] LABS: HCT 40.1 % (36.0-46.0); HGB 14.3 g/dL (11.2-15.7); MCH 32.3 pg (27.0-33.0); MCHC 35.7 % (32.0-36.0); MCV 91 fL (80-95); MPV 8.9 fL (8.0-11.0); Platelet Count 325 10^3/uL (130-400); RBC 4.43 10^6/uL (3.93-5.22); RDW 12.8 % (11.7-14.6); RDW-SD 42.8 fL; WBC 4.46 10^3/uL (4.4-10.8)
[2024-03-19 10:26] LABS: ALT 45 U/L (14-59); AST 28 U/L (15-37); Albumin 4.1 g/dL (3.4-5.0); Alkaline Phosphatase 100 U/L (46-116); Bilirubin, Direct 0.1 mg/dL (0.0-0.2); Bilirubin, Total 0.44 mg/dL (0.2-1.0); C-Reactive Protein < 0.50 mg/dL (<or=0.5); Total Protein 7.4 g/dL (6.4-8.2)
[2024-03-25 02:25] LABS: Infliximab 7.3 mcg/mL (<=5.0)
== END 2024-03-26 23:59 | disposition home or self-care (01) ==
LOC: INF 02:00
PROVIDERS: Internal Medicine; Internal Medicine Gastroenterology; PCP Family Medicine; Visit Provider Family Medicine
DX: K51.90 Ulcerative colitis, unspecified, without complications
CPT/HCPCS: 36415; 80076; 82397; 85027; 96365; 96366; 96374; 86140; J1720; J1745

== ENCOUNTER 2024-05-14 02:40 | Outpatient (RCR) | payer MEDICARE, OTHER, SELFPAY ==
[2024-03-27 00:03] VITALS: BP 136/84; PULSE 68; RESP 16; TEMP 36.5
[2024-05-14] VITALS (7 sets, daily range): BP systolic 123–149; BP diastolic 64–85; PULSE 55–68; RESP 16–17; TEMP 36.3–36.6; O2SAT 95–99
[2024-05-14] MEDS: Loratidine 10 MG TAB PO (09:46)
[2024-05-14] MEDS: Normal Saline Flush 10 ML SYR IVP (09:46)
[2024-05-14] MEDS: Acetaminophen 325 MG TAB 650 MG PO (09:46)
[2024-05-14] MEDS: Hydrocortisone SOD SUC. 100 MG VIAL IV (09:46)
[2024-05-14] MEDS: inFLIXimab 300 MG in Normal Saline 250 ML 125 MG IVPB (10:12)
[2024-05-14 10:37] LABS: ALT 37 U/L (14-59); AST 23 U/L (15-37); Albumin 3.9 g/dL (3.4-5.0); Alkaline Phosphatase 100 U/L (46-116); Anion Gap 7.9 mmol/L (3-11); BUN 13 mg/dL (7-18); Bilirubin, Total 0.37 mg/dL (0.2-1.0); CO2 27.1 mmol/L (21.0-32.0); CREATININE 0.7 mg/dL (0.55-1.02); Calcium 9.3 mg/dL (8.5-10.1); Chloride 97 mmol/L (98-107); Estimated GFR 95.92 (mL/min/1.73m2); Glucose 92 mg/dL (74-106); Potassium 3.8 mmol/L (3.5-5.1); Sodium 132 mmol/L (136-145); Total Protein 7.1 g/dL (6.4-8.2)
== END 2024-05-26 23:59 | disposition home or self-care (01) ==
LOC: INF 02:40
PROVIDERS: PCP Family Medicine; Visit Provider Family Medicine
DX: K51.90 Ulcerative colitis, unspecified, without complications (principal); Z51.81 Encounter for therapeutic drug level monitoring; Z79.620 Long term (current) use of immunosuppressive biologic
CPT/HCPCS: 80053; 96365; 96366; J1720; J1745

== ENCOUNTER 2024-06-24 00:36 | Outpatient (CLI) | payer MEDICARE, OTHER, SELFPAY ==
--- NOTE | 2024-06-24 | DI.US_ITS ---
Exam(s) US THYROID EXAM: US THYROID CLINICAL HISTORY: CYST OF THYROID,E04.1. TECHNIQUE: Ultrasound thyroid performed using standard protocol. COMPARISON: US US Migrated Study from 06/14/2020 US US Migrated Study from 06/30/2020 US US Migrated Study from 06/30/2021 FINDINGS: ISTHMUS: 3 mm RIGHT LOBE: Size: 4.1 x 1.7 x 1.3 cm Echogenicity: Overall homogeneous. Vascularity: Normal. Nodules: Circumscribed benign appearing circumscribed hypoechoic nodule measuring 5 x 3 x 4 millimete rs. LEFT LOBE: Size: 4.6 x 2.3 x 2.2 cm Echogenicity: Homogeneous where visualized. Vascularity: Normal. Nodules: Nodule large nodule measuring 3.8 x 2.0 x 2.1 cm, occupying nearly the entire gland. This h as increased in size when compared with 2020 where it measured 2.2 x 1.7 x 1 6 cm. Ill-defined prudence ns, mixed echogenicity, wider than tall with macrocalcifications. TR 3. FNA recommended. This lesi on has had previous FNA performed. OTHER FINDINGS: None. IMPRESSION: interval increase in size of left-sided thyroid nodule, TR 3. FNA could be considered. DATA REPOSITORY:
== END 2024-06-24 00:56 ==
LOC: DI 00:36
PROVIDERS: PCP Family Medicine; Visit Provider Family Medicine
DX: E04.1 Nontoxic single thyroid nodule (principal)
CPT/HCPCS: 76536

== ENCOUNTER 2024-07-09 01:41 | Outpatient (RCR) | payer MEDICARE, OTHER, SELFPAY ==
[2024-05-27 00:02] VITALS: BP 136/84; PULSE 68; RESP 16; TEMP 36.5
[2024-07-09] MEDS: Hydrocortisone SOD SUC. 100 MG VIAL IV (09:35)
[2024-07-09] MEDS: Loratidine 10 MG TAB PO (09:37)
[2024-07-09] MEDS: Normal Saline Flush 10 ML SYR IVP (09:37)
[2024-07-09] MEDS: Acetaminophen 325 MG TAB 650 MG PO (09:37)
[2024-07-09] MEDS: inFLIXimab 300 MG in Normal Saline 250 ML 125 MG IVPB (09:48)
[2024-07-09 10:33] LABS: HCT 35.7 % (36.0-46.0); HGB 12.8 g/dL (11.2-15.7); MCH 32.4 pg (27.0-33.0); MCHC 35.9 % (32.0-36.0); MCV 90 fL (80-95); MPV 9.4 fL (8.0-11.0); Platelet Count 333 10^3/uL (130-400); RBC 3.95 10^6/uL (3.93-5.22); RDW-SD 43.2 fL; WBC 4.93 10^3/uL (4.4-10.8)
[2024-07-09 10:48] LABS: ALT 40 U/L (14-59); AST 24 U/L (15-37); Albumin 3.9 g/dL (3.4-5.0); Alkaline Phosphatase 93 U/L (46-116); Bilirubin, Direct 0.1 mg/dL (0.0-0.2); Bilirubin, Total 0.34 mg/dL (0.2-1.0)
[2024-07-09 10:50] LABS: C-Reactive Protein < 0.50 mg/dL (<or=0.5)
[2024-07-09 13:47] LABS: TSH (W/Ref FT4) 1.75 uIU/mL (0.36-3.74)
== END 2024-07-26 23:59 | disposition home or self-care (01) ==
LOC: INF 01:41
PROVIDERS: Internal Medicine Gastroenterology; Otolaryngology; PCP Family Medicine; Visit Provider Family Medicine
DX: K51.90 Ulcerative colitis, unspecified, without complications (principal)
CPT/HCPCS: 36415; 80076; 85027; 96365; 96366; 96374; 96375; 84443; 86140; J1720; J1745

== ENCOUNTER 2024-07-15 10:57 | Outpatient (CLI) | payer MEDICARE, OTHER, SELFPAY ==
--- NOTE | 2024-07-15 12:20 | PAPNONF_PTH ---
PATIENT: Elsa Lujan LOC: [facility] U#:[id number] AGE/SX: 63/F ROOM: RE07/15/[address]: Fazal Tee MD : 1960 BED: DIS: 07/15/2024 SPEC #: [id number] RECD: 07/15/24 12:59 STATUS: ALFA REQ #: [id number] [place]: 07/15/24 12:[address]: Fazal Tee DEPT[facility] Cytology RECD BY: Nelly Whaley ENTERED: 07/15/24 13:00 SP TYPE: JESSICA THOMAS DR: Rosi Ordoñez Tissues: 1 - BODY FLUID CYTO-FINE NEEDLE ASPIRATE-[facility] Procedures: BODY FLUID CYTO-FINE NEEDLE ASPIRATE[facility] Comments: [id number] (PATH FNA CONSULT) (REFRIGERATED)
--- NOTE | 2024-07-15 12:20 | DI.US_ITS ---
Exam(s) US NEEDLE LOCAL OTHER WO RAD EXAM: US NEEDLE LOCAL OTHER WO RAD CLINICAL HISTORY: Left thyroid nodule E04.2 MULTINODULAR GOITER. COMPARISON: No exams were available for comparison TECHNIQUE: Ultrasound was provided for Dr. Tee for guidance with performing left thyroid FNA. . FINDINGS: Please see procedure note for details. IMPRESSION: Successful Ultrasound-guided Localization. DATA REPOSITORY:
--- NOTE | 2024-07-15 13:02 | W.PROCNOTE ---
Date of service: 07/15/24 Time of Service: 13:03 Procedure Note Date of procedure: 07/15/24 Procedure: Ultrasound-guided FNA, left thyroid nodule Surgeon/Proceduralist/Physician: Fazal Tee Procedure Diagnosis: Left thyroid nodule Procedure Indications: The patient has a left-sided thyroid nodule which has increased in size. Previous biopsies were apparently benign. Options were explained to the patient regarding further management. She elected to undergo the above procedure. Consent was obtained. Risks including bleeding, infection, and need for further treatment were discussed at length. She is aware that I do not believe that aspiration of material will improve her symptoms of pressure in this area. Procedure Description: The patient was positioned in a supine position with her neck slightly extended. She was prepped and draped in appropriate fashion and ultrasound used to localize the left-sided thyroid nodule. 1% lidocaine with 1/100,000 epinephrine was injected in the skin and subcutaneous tissues overlying the nodule and then a 25-gauge needle passed into the thyroid nodule repeatedly to collect cellular material. Pathology evaluated the material and felt that we had hit cellular adequacy. After 2 passes, 2 additional passes were made for potential Afirma testing. Wound was inspected for hemostasis. After ensuring adequate hemostasis, the patient was allowed to sit, stand, and ambulate. She will call with any signs of infection. She will avoid any heavy lifting for the next hour or 2. She will use ibuprofen or Tylenol for any discomfort. She will call if she does not hear from us within 1 week with regard to the pathology results. She had no further questions. She is comfortable with the plan.
== END 2024-07-15 11:17 ==
PROVIDERS: PCP Family Medicine; Visit Provider Otolaryngology
DX: D44.0 Neoplasm of uncertain behavior of thyroid gland (principal)
CPT/HCPCS: 10005; 76942; 88104

== ENCOUNTER 2024-09-05 16:44 | Outpatient (REF) | payer MEDICARE, OTHER, SELFPAY ==
[2024-09-05 15:34] LABS: Calculated LDL 146 mg/dL (<100); Cholesterol 270 mg/dL (<200); HDL Cholesterol 112 mg/dL (40-60); Triglyceride 60 mg/dL (<150); Vitamin D 25 Total 73.4 ng/mL (30-100)
--- OUTSIDE RECORDS SUMMARY | 2024-09-05 16:48 | XMS_ITS ---
Author Organization Unknown Address [address] [place] [phone] Phone Care Team Providers Care Wine Steward/Stewardess Name Role Phone SP CARY Attending Unavailable Results US CHEST - Completed: 2022 13:18 [facility] RADIOLOGY [place], [place] [address] PACS LICENSED MASSAGE PRACTITIONER REPORT Patient Name: SKYLA LONDONO MRN: Sex: : Age: [id number] F 1960 [id number] Account: Accession: Admit: StayType: [id number] 11/17/2022 O/P Ordered: Order ID: Submitted: Ordering Provider: 11/17/2022 12:39 [id number] [facility] RAEANN SNOWDEN Completed: Technologist: Resulted: 11/17/2022 13:18 [facility] 11/17/2022 14:43 Study Description: US CHEST [...] Code Syst em Smoking History Former smoker [id number] SNOMED CT Sex Female Medications Medication Start Date End Date Route Frequency Dose Code Code System Medication Instructions Home Meds Trileptal 300MG Oral Tablet 10/03/2014 Unknown ORAL THREE TIMES A DAY 300 MILLIGRAMS [id number] RxNorm TAKE 300 MILLIGRAMS ORAL THREE TIMES [...] Code Sys tem Mass of trunk 11/17/2022 [id number] [facility] Personal Care Team Section Performer Name Performer Role Active Date Inactive Da te
--- OUTSIDE RECORDS SUMMARY | 2024-09-05 16:48 | XMS_ITS ---
Author Organization Unknown Address [address] [place] [phone] Phone Care Team Providers Care Support Services Tech Name Role Phone SP CARY Attending Unavailable Results MM SCREENING BILAT MAMMO W T LYUBOV W CAD - Completed: 07/11/2023 10:33 [facility]: [facility] RADIOLOGY [place], [place] [address] PACS DESIZING MACHINE OPERATOR REPORT Patient Name: SKYLA LONDONO Remy MRN: Sex: : Age: [id number] F 1960 62 Account: Accession: Admit: StayType: [id number] 07/11/2023 O/P Ordered: Order ID: Submitted: Ordering Provider: 07/11/2023 10:00 [id number] RAEANN NGUYEN Completed: Technologist: Resulted: 07/11/2023 10:33 [facility] 07/11/2023 11:11 Study Description: MM SCREENING BILAT [...] Code Syst em Smoking History Former smoker [id number] SNOMED CT Sex Female Medications Medication Start Date End Date Route Frequency Dose Code Code System Medication Instructions Home Meds Trileptal 300MG Oral Tablet 10/03/2014 Unknown ORAL THREE TIMES A DAY 300 MILLIGRAMS 145427 RxNorm TAKE 300 MILLIGRAMS ORAL THREE TIMES [...]
--- OUTSIDE RECORDS SUMMARY | 2024-09-05 16:49 | XMS_ITS | Encounter Summary ---
Author Organization [facility] Address [address] [place] [address] Care Team Providers Care Repair Coil Winder Name Role Phone Rosi Ordoñez MD Primary Care Provider [phone] Encounter Details Date Type Department Care Team (Late st Contact Info) Description 07/16/2024 Lab Requisition [facility] Pathology & Laboratory Medicine - [address] [address] Fazal Tee MD [address] [place] [id number] Nontoxic multinodular goiter Social History Tobacco Use Types Packs/Day Years Used Date Smoking Tobacco: Former Cigarettes 0.3 10 Smokeless Tobacco: Never Alcohol Use Standard Drinks/Week Comments Not Currently 0 (1 standard drink = 0.6 oz pur e alcohol) Interpersonal Safety Answer Date Record ed Physically Hurt Never 03/28/2020 Verbally Threaten Not on file 03/28/2020 Comments Unknown Sex and Gender Information Value Date Recorded Sex Assigned at Not on file Legal Sex Female 17:40 EST Gender Identity Not on file Sexual Orientation Not on file documented as of this encounter Functional Status * Because of a physical, mental, or emotional condition, does this person have difficulty doing errands alone such as visiting a doctor's office or shopping? Answer Date of Assessment Author Yes 02/18/2018 9:55 EDT documented as of this encounter Mental Status * Because of a physical, mental, or emotional condition, does this person have serious difficulty concentrating, remembering, or making decisions? Answer Entry Date Author Yes 02/18/2018 9:55 EDT documented in this encounter Plan of Treatment Not on file documented as of this encounter Procedures Procedure Name Priority Date/Time Associated Diagnosis Comments NON LIFE SCIENCES DIRECTOR/FNA CYTOLOGY Today 07/15/2024 12:20 EST Nontoxic multinodular goiter documented in this encounter Results * NON LIFE SCIENCES DIRECTOR/FNA CYTOLOGY (07/15/2024 12:20 EST) Ancillary Studies Addendum This addendum report is issued to provide the [facility] Gene Sequencing Supervisor Polishing results. Please see the attached documentation. 07/29/2024 16:00 [facility] Addendum electronically signed by Jony Cr MD on 07/29/2024 at 1600 Note to Patient The following pathology results have been interpreted by your pathologist and may be available to you before your health provider has had the opportunity to review them. Please allow time for your provider to receive these results and explore management options, if applicable. 07/29/2024 16:00 [facility] Final Diagnosis A. THYROID, LEFT, ULTRASOUND-GUIDED FINE-NEEDLE ASPIRATION: - Atypia of undetermined significance (AUS). - See comment 07/29/2024 16:00 [facility] Diagnosis Comment Stained aspirate smear and Thin Prep slides show a mildly cellular specimen with some dense colloid. Follicular cells are predominantly arranged in microfollicles with occasional macrofollicles. There is cytologic atypia in the follicular cells characterized by occasional nuclear grooves, irregular nuclear contours, nuclear pallor, and crowding/overlappi ng of nuclei. No nuclear pseudoinclusions are identified. The background shows abundant hemosiderin-laden macrophages and scattered cyst lining cells. Overall, the findings are most in keeping with a diagnosis of atypia of undetermined significance (AUS). Affirma molecular testing will be performed and reported separately. Intradepartmental review was obtained. The technical component of the specimen processing was performed at the [facility] Pathology Department, [address] [place] [address] (CLIA [id number]). The professional component of the specimen evaluation (slide review and issuing of the final diagnosis) was performed at [facility], [address] [place] [address] (CLIA License Number [id number]). 07/29/2024 16:00 [facility] Attestation By the signature below, the attending physician certifies that they have personally conducted a gross and/or microscopic examination of the described specimens and rendered or confirmed the above diagnosis. 07/29/2024 16:00 [facility] at 1152 Rapid Diagnosis A. THYROID NODULE (2.8 CM), LEFT, ULTRASOUND GUIDED FINE NEEDLE ASPIRATION: Evaluation Episode 1: Pass 1-2: Adequate follicular cells; abundant siderophage's. Afirma collected.( 2 dedicated passes). The above rapid on site evaluation was performed by pathologist Dr. Areli Garcia at [facility], [address] [place] [address]. 07/15/24; 1220 07/29/2024 16:00 [facility] Clinical History 2.8cm left thyroid nodule. E04.2 07/29/2024 16:00 [facility] Gross Description A. 3 fixed prepared slides, 4 air dried prepared slides, and 1 tube of CytoLyt were received and processed by selective cellular enhancement technique. 1 FNAprotect tube for possible Afirma testing was also received and will be held for 60 days from date of collection. 07/29/2024 16:00 [facility] Performing Lab [facility] 16:00 [facility] Scanned Images 07/29/2024 16:00 [facility] Fine Needle Aspirate STRUCTURE OF LEFT LOBE OF THYROID GLAND / Unknown 07/15/2024 12:20 EST 07/16/2024 6:10 EST us Fazalandi Tee MD PATHOLOGY ORDERABLES Edited Resu lt - Final [facility] [address] [place] [address] [facility] [address] [place], [place] [address] documented in this encounter Visit Diagnoses Diagnosis Nontoxic multinodular goiter documented in this encounter Care Teams Repair Coil Winder Relationship Specialty Start Date End Date Rosi Ordoñez MD [address] [place] [address] PCP - General Family Medicine - Primary Care 06/27/24 documented as of this encounter
--- OUTSIDE RECORDS SUMMARY | 2024-09-05 16:49 | XMS_ITS | Encounter Summary ---
Author Organization [facility] Address [address] [place] [address] Care Team Providers Care Test Clerk Name Role Phone Aria Thompson MD Primary Care Provider Reason for Visit * Reason Onset Date Comments Appointment Related 09/15/2019 Encounter Details Date Type Department Care Team (Late st Contact Info) Description 09/15/2019 Telephone [facility] Endocrinology - [facility] [address] [place] [address] Amber Mendosa DO [address] [facility] [address] [place] [address] Appointment Related Social History Tobacco Use Types Packs/Day Years Used Date Smoking Tobacco: Former Cigarettes 0.3 10 Smokeless Tobacco: Never Comments Unknown Sex and Gender Information Value [...] 02/18/2018 9:55 EDT documented in this encounter Miscellaneous Notes * Telephone Encounter - Cody Streeter - 09/15/2019 1526 EST Left message with clinic address change details for upcoming 10/03/[address] Mendosa. Advised patient clinic is now located at [address] [place] [address] documented in this encounter Plan of Treatment Not on file documented as of this encounter Visit Diagnoses Not on filedocumented in this encounter Care Teams Test Clerk Relationship Specialty Start Date End Date Aria Thompson MD PCP - General 12/03/17 06/26/24 documented as of this encounter
--- OUTSIDE RECORDS SUMMARY | 2024-09-05 16:49 | XMS_ITS | Encounter Summary ---
Author Organization [facility] Address [address] [place] [address] Care Team Providers Care Buckle Frame Shaper Name Role Phone Aria Thompson MD Primary Care Provider Rosi Ordoñez MD Primary Care Provider [phone] Encounter Details Date Type Department Care Team (Late st Contact Info) Description 08/31/2023 Lab Requisition [facility] Pathology & Laboratory Medicine - [address] [address] Outr Resulting Lab, Provider Social History Tobacco [...] 4th Generation Negative Negative 08/31/2023 19:45 EST [facility] Comment:If acute HIV-1 infec tion is suspected in a high risk patient, submit plasma specimen for HIV-1 RNA quantitation test. Blood VENOUS BLOOD / Unknown 08/31/2023 10:21 EST 08/31/2023 17:44 EST Narrative [facility] - 08/31/2023 19:45 EST Fourth Generation assay performed on the Siemens Centaur XPT. us Provider Outr Resulting Lab IMMUNOLOGY AND SEROL OGY ORDERABLES Final Result [facility] [address] [place] [address] documented in this encounter Visit Diagnoses Not on filedocumented in this encounter Care Teams Buckle Frame Shaper Relationship Specialty Start Date End Date Aria Thompson MD PCP - General 12/03/17 06/26/24 Rosi Ordoñez MD [address] [place] [phone] PCP - General Family Medicine - Primary Care 06/27/24 documented as of this encounter
--- OUTSIDE RECORDS SUMMARY | 2024-09-05 16:49 | XMS_ITS | Encounter Summary ---
Author Organization [facility] Address [address] [place] [address] Care Team Providers Care Community Liaison Officer Name Role Phone Aria Thompson MD Primary Care Provider Encounter Details Date Type Department Care Team (Late st Contact Info) Description 06/27/2018 Results Only Imaging [facility] [phone] Unknown, Provider, Social History Tobacco Use Types [...] documented in this encounter Plan of Treatment Pending Results Name Type Priority Associated Diagnoses Date /Time OUTSIDE IMAGES - MR NEURO Imaging 06/27/2018 13:01 EDT documented as of this encounter Visit Diagnoses Not on filedocumented in this encounter Care Teams Community Liaison Officer Relationship Specialty Start Date End Date Aria Thompson MD PCP - General 12/03/17 06/26/24 documented as of this encounter
--- OUTSIDE RECORDS SUMMARY | 2024-09-05 16:49 | XMS_ITS | Encounter Summary ---
Author Organization [facility] Address [address] [place] [address] Care Team Providers Care Applications Support Analyst Name Role Phone Aria Thompson MD Primary Care Provider Rosi Ordoñez MD Primary Care Provider [phone] Reason for Visit * Reason Onset Date Comments Appointment Related 06/22/2020 Encounter Details Date Type Department Care Team (Late st Contact Info) Description 06/22/2020 Telephone [facility] Endocrinology - [facility] [address] [place] [address] Amber Mendosa DO [address] [facility] [address] [place] [address] Appointment Related Social History Tobacco [...] on filedocumented in this encounter Care Teams Applications Support Analyst Relationship Specialty Start Date End Date Aria Thompson MD PCP - General 12/03/17 06/26/24 Rosi Ordoñez MD [address] [place] [address] PCP - General Family Medicine - Primary Care 06/27/24 documented as of this encounter
--- OUTSIDE RECORDS SUMMARY | 2024-09-05 16:49 | XMS_ITS | Encounter Summary ---
Author Organization [facility] Address [address] [place] [address] Care Team Providers Care Film Laboratory Technician Name Role Phone Aria Thompson MD Primary Care Provider Rosi Ordoñez MD Primary Care Provider [phone] Encounter Details Date Type Department Care Team (Late st Contact Info) Description 08/04/2022 Lab Requisition [facility] Lab - Main [address] [id number] Derrick Mir MD [address] [place] [address] Ulcerative colitis, unspecified, without complications ([facility]) Social History Tobacco Use Types Packs/Day Years [...] :25 EST Ulcerative colitis, unspecified, without complications (HCC-CMS) ([facility]) documented in this encounter Results * [...] Received in formalin labeled ? Elsa L. [place]? and ? transverse colon Bx? is a single mucosal tissue fragment measuring 0.4 x 0.2 x 0.1 cm. Entirely submitted in A1. B. Received in formalin labeled ? Elsa L. [place]? and ? descending colon Bx? are 2 mucosal tissue fragments ranging in size from less than 0.1 cm (may not survive processing) and 0.6 x 0.1 x 0.1 cm. Entirely submitted in B1. C. Received in formalin labeled ? Elsa L. [place]? and ? sigmoid colon? is a single mucosal tissue fragment measuring 0.2 x 0.1 x 0.1 cm. Entirely submitted in C1. D. Received in formalin labeled ? Elsa L. [place]? and ? rectum Bx? is a single mucosal tissue fragment measuring 0.4 x 0.1 x 0.1 cm. Entirely submitted in D1. ANNA VIGIL 08/04/2022 10:33 08/07/2022 15:57 [facility] Performing Lab [facility] 08/07/2022 15:57 [facility] Scanned Images 08/07/2022 15:57 [facility] Tissue SPECIMEN FROM RECTUM / Unknown 08/03/2022 13:25 EST 08/04/2022 5:37 EST Tissue specimen (specimen) DESCENDING COLON STRUCTURE / Unknown 08/03/2022 13:25 EST 08/04/2022 5:37 EST Tissue specimen (specimen) SIGMOID COLON STRUCTURE / Unknown 08/03/2022 13:25 EST 08/04/2022 5:37 EST Tissue specimen (specimen) SPECIMEN FROM RECTUM / Unknown 08/03/2022 13:25 EST 08/04/2022 5:37 EST us Derrick Mir MD PATHOLOGY ORDERABLES Final Result [facility] [address] [place] [address] documented in this encounter Visit Diagnoses Diagnosis Ulcerative colitis, unspecified, without complications (HCC-CMS) documented in this encounter Care Teams Film Laboratory Technician Relationship Specialty Start Date End Date Aria Thompson MD PCP - General 12/03/17 06/26/24 Rosi Ordoñez MD [address] [place] [address] PCP - General Family Medicine - Primary Care 06/27/24 documented as of this encounter
--- OUTSIDE RECORDS SUMMARY | 2024-09-05 16:49 | XMS_ITS | Encounter Summary ---
Author Organization [facility] Address [address] [place] [address] Care Team Providers Care Ux Specialist Name Role Phone Aria Thompson MD Primary Care Provider Encounter Details Date Type Department Care Team (Latest Contact Info) Description 03/27/2019 15:54 EDT - 03/27/2019 23:[address] [facility] [address] [place] [address] Amber Mendosa, DO [address] [address] Discharge Disposition: Auto Discharge Social History [...] 02/18/2018 9:55 EDT documented in this encounter Discharge Diagnoses Diagnosis M81.8 Other osteoporosis without current pathological fracture-M81.8[ICD-10-CM] documented in this encounter Medications at Time of Discharge cholecalciferol, vitamin D3, (VITAMIN D3 ORAL) Take 2,000 Tabs by mouth daily. mesalamine (CANASA) 1,000 mg suppository INSERT ONE SUPPOSITORY RECTALLY ONCE OR TWICE A DAY 02/04/2018 1 OXcarbazepine (TRILEPTAL) 300 mg tablet Take one tablet by mouth 4x daily BRAND ONLY 360 Tab 3 01/06/2019 0 documented as of this encounter Discharge Disposition Disposition Code Departure Means Destination Auto Discharge Home documented in this encounter Plan of Treatment Not on file documented as of this encounter Visit Diagnoses Not on filedocumented in this encounter Care Teams Ux Specialist Relationship Specialty Start Date End Date Aria Thompson MD PCP - General 12/03/17 06/26/24 documented as of this encounter
--- OUTSIDE RECORDS SUMMARY | 2024-09-05 16:49 | XMS_ITS | Encounter Summary ---
Author Organization [facility] Address [address] [place] [address] Care Team Providers Care Job Placement Officer Name Role Phone Aria Thompson MD Primary Care Provider Reason for Visit * Reason Onset Date Comments Appointment Related 06/04/2019 Encounter Details Date Type Department Care Team (Late st Contact Info) Description 06/04/2019 Telephone [facility] Speech & Language [address] [place] [address] Macie Goodson, ROBE [address] [place] [address] Appointment Related Social History Tobacco [...] Telephone Encounter - Chantelle Steinberg - 06/04/2019 9137 EDT Spoke with Yancy again, Elsa asked that we leave a phone number, that she remembers that we called previously and will be calling to schedule. I left my direct line to schedule an ICC. Chantelle Steinberg Therapy Manager Of Planning documented in this encounter Plan of Treatment Not on file documented as of this encounter Visit Diagnoses Not on filedocumented in this encounter Care Teams Job Placement Officer Relationship Specialty Start Date End Date rAia Thompson MD PCP - General 12/03/17 06/26/24 documented as of this encounter
--- OUTSIDE RECORDS SUMMARY | 2024-09-05 16:49 | XMS_ITS | Encounter Summary ---
Author Organization [facility] Address [address] [place] [address] Care Team Providers Care Day Care Attendant Name Role Phone Rosi Ordoñez MD Primary Care Provider [phone] Encounter Details Date Type Department Care Team (Late st Contact Info) Description 09/05/2024 Lab Requisition [facility] Pathology & Laboratory Medicine - [address] [address] Outr Resulting Lab, Provider Social History Tobacco [...] in this encounter Plan of Treatment Scheduled Orders Name Type Priority Associated Diagnoses Orde r Schedule HIV 1/2 ANTIGEN AND ANTIBODY , 4TH GENERATION Lab Routine Ordered: 025 documented as of this encounter Visit Diagnoses Not on filedocumented in this encounter Care Teams Day Care Attendant Relationship Specialty Start Date End Date Rosi Ordoñez MD [address] [place] [address] PCP - General Family Medicine - Primary Care 06/27/24 documented as of this encounter
--- OUTSIDE RECORDS SUMMARY | 2024-09-05 16:49 | XMS_ITS | Encounter Summary ---
Author Organization [facility] Address [address] [place] [address] Care Team Providers Care Social Science Analyst Name Role Phone Aria Thompson MD Primary Care Provider Reason for Visit * Reason Onset Date Comments Medications Refill 11/15/2020 Encounter Details Date Type Department Care Team (Late st Contact Info) Description 11/15/2020 Refill [facility] Neurology [facility] [address] [place], [place] [phone] Marleny Quezada MD [address] [place] [address] Medications Refill Social History Tobacco [...] 02/18/2018 9:55 EDT documented in this encounter Ordered Prescriptions Prescription Sig Dispense Quantity Refills Last Filled Start Date End Date OXcarbazepine (TRILEPTAL) 300 mg tablet Take one tablet by mouth 4x daily BRAND ONLY 120 Tab 11/15/2020 documented in this encounter Miscellaneous Notes * Telephone Encounter - NayanmarioKarina ritter - 11/15/2020 1535 EDT Patient called back. Let patient know we received refill request, and that we needed to schedule follow up since it has been since April 2019. She advised she would like referral to [place] [place] [facility], as this is closer to her. I let patient know that she could possibly reach out to her PCP about this referral, and she advised this is not something her PCP would handle. She inquired about just sending referral to [place] for her, and I let her know [...] Last seen: 05-26-2019 No appointment scheduled. [facility]. Cell and Home. [...] documented as of this encounter Care Teams Social Science Analyst Relationship Specialty Start Date End Date Aria Thompson MD PCP - General 12/03/17 06/26/24 documented as of this encounter
--- OUTSIDE RECORDS SUMMARY | 2024-09-05 16:49 | XMS_ITS | Encounter Summary ---
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
--- OUTSIDE RECORDS SUMMARY | 2024-09-05 16:49 | XMS_ITS | Encounter Summary ---
Author Organization [facility] Address [address] [place] [address] Care Team Providers Care Camouflage Specialist Name Role Phone Aria Thompson MD Primary Care Provider Reason for Visit * Reason Onset Date Comments Medications Refill 01/06/2019 Encounter Details Date Type Department Care Team (Late st Contact Info) Description 01/06/2019 Refill [facility] Neurology [facility] [address] [place], [place] [phone] Marleny Quezada MD [address] [place] [phone] Medications Refill Social History Tobacco Use Types [...] on filedocumented in this encounter Care Teams Camouflage Specialist Relationship Specialty Start Date End Date Aria Thompson MD PCP - General 12/03/17 06/26/24 documented as of this encounter
--- OUTSIDE RECORDS SUMMARY | 2024-09-05 16:49 | XMS_ITS | Encounter Summary ---
Author Organization [facility] Address [address] [place] [address] Care Team Providers Care Epidemiologist Name Role Phone Aria Thompson MD Primary Care Provider Reason for Visit * Reason Comments Biopsy Encounter Details Date Type Department Care Team (Latest Contact Info) Description 06/30/2020 11:30 EST Procedure visit [facility] Endocrinology [address] [place] [address] Joanne Sotomayor MD [address] [facility] [address] [place] [address] Nontoxic multinodular goiter (Primary Dx) [...] 02/18/2018 9:55 EDT documented in this encounter Progress Notes * Joanne Gunn MD - 06/30/2020 1130 EST Due to computer system disruption, additional clinical information for this visit is Scanned Note. For patients, please refer to guidance in [employer] on how to locate information. Generally this information will appear as a scanned documents saved in My Documents activity. Patient was seen for biopsy. documented in this encounter Plan of Treatment Not on file documented as of this encounter Visit Diagnoses Diagnosis Nontoxic multinodular goiter- Primary documented in this encounter Care Teams Epidemiologist Relationship Specialty Start Date End Date Aria Thompson MD PCP - General 12/03/17 06/26/24 documented as of this encounter
--- OUTSIDE RECORDS SUMMARY | 2024-09-05 16:49 | XMS_ITS | Encounter Summary ---
Author Organization [facility] Address [address] [place] [address] Care Team Providers Care Medical Historian Name Role Phone Aria Thompson MD Primary Care Provider Rosi Ordoñez MD Primary Care Provider [phone] Encounter Details Date Type Department Care Team (Late st Contact Info) Description 08/04/2021 Lab Requisition [facility] Pathology & Laboratory Medicine - [address] [address] Derrick Mir MD [address] [place] [phone] Ulcerative (chronic) pancolitis with rectal bleeding [...] explore management options, if applicable. 08/05/2021 16:46 [facility] Final Diagnosis A. COLON, CECUM, [...] activity. - Negative for dysplasia. 08/05/2021 16:46 [facility] Attestation By the signature below, the attending physician certifies that they have 1) personally conducted a gross and/or microscopic examination of the described specimen(s), and/or personally interpreted the results of laboratory testing of the described specimen(s), and 2) personally rendered or confirmed the above diagnosis. 08/05/2021 16:46 [facility] at 1646 Clinical History History of ulcerative colitis; clinical diagnosis code: K51.011 08/05/2021 16:46 [facility] Gross Description A. Received in [...] G1. KATE WELLER(ASCP) 08/04/2021 19:52 08/05/2021 16:46 [facility] Performing Lab [facility] 08/05/2021 16:46 [facility] Scanned Images 08/05/2021 16:46 [facility] Tissue SPECIMEN FROM RECTUM / [...] Unknown 08/03/2021 11:56 EST 08/04/2021 18:09 EST us Derrick Mir MD PATHOLOGY ORDERABLES Final Result [facility] [address] [place] [address] documented in this encounter Visit Diagnoses Diagnosis Ulcerative (chronic) pancolitis with rectal bleeding (HCC-CMS) documented in this encounter Care Teams Medical Historian Relationship Specialty Start Date End Date Aria Thompson MD PCP - General 12/03/17 06/26/24 Rosi Ordoñez MD [address] [place] [phone] PCP - General Family Medicine - Primary Care 06/27/24 documented as of this encounter
--- OUTSIDE RECORDS SUMMARY | 2024-09-05 16:49 | XMS_ITS | Encounter Summary ---
Author Organization [facility] Address [address] [place] [address] Care Team Providers Care Upsetter Helper Name Role Phone Aria Thompson MD Primary Care Provider Reason for Referral * Prior Authorization (Routine) - Closed Specialty Diagnoses / Procedures Referred By Merari rosario Referred To Contact Psychology Diagnoses Memory loss Seizures (HCC-CMS) Marleny Quezada MD Phone: tel: fax: [facility] Memory Program - Medical Office Building [address] [place] [address] Phone: tel: fax: Referral ID Status Reason Start Date Expiration Date V isits Requested Visits Authorized [id number] Closed Specialty Services Required 10/29/2018 1 1 Question Answer Reason for Request: worsening subjective memory, noticeable at work Can the patient act on his/her own behalf? If no, provide contact information below. Yes Name, Address and Phone Number of Sales Contracts Analyst (Other than the Patient) to be Contacted for Appointment Confirmation and Other Questions: see PRISM * Consult (Routine) - Specialty Report Received Specialty Diagnoses / Procedures Referred By Merari rosario Referred To Contact Osteoporosis Diagnoses Osteoporosis, unspecified osteoporosis type, unspecified pathological fracture presence Marleny Quezada MD Phone: tel: fax: [facility] Osteoporosis - [address] [address] Phone: tel: fax: Referral ID Status Reason Start Date Expiration Date Visits Requested Visits Authorized [id number] Specialty Report Received Specialty Services Required 10/29/2018 1 1 Question Answer Reason for Request: osteoporosis Reason for Visit * Reason Comments Follow-up Encounter Details Date Type Department Care Team (Late st Contact Info) Description 10/29/2018 10:30 EST Office Visit [facility] Neurology [facility] [address] [place] [address] Marleny Quezada MD [address] [place] [address] Seizures ([facility]) (Primary Dx); Osteoporosis, unspecified osteoporosis type, unspecified [...] 9:55 EDT documented in this encounter Discharge Disposition Disposition Code Departure Means Destination Auto Discharge documented in this encounter Progress Notes * Marleny Quezada MD, MD - 10/29/2018 1030 EST .THE NEUROLOGY ?? FOLLOW UP - 10/29/2018 ? [...] difficulty. IMAGING: Bone density scan 09/17/2018 at [facility]: osteoporosis of lumbar spine and osteopenia of left hip. MRI Brain 08/09/2017 with non specific white matter changes. LABS: No recent labs available. EMG: April 2018- The electrodiagnostic study was normal today which is reassuring. There is no need for further neurological investigations unless there is change in symptoms. EEG: April 2018, 72 hour ambulatory and baseline studies at [facility] Impression: Abnormal ambulatory monitoring study [...] Outpatient Referral Routine Memory Loss Seizures (CMS-HCC) ([facility]) Ordered: 10/29/2018 documented as of this encounter Visit Diagnoses Diagnosis Seizures (HCC-CMS)- Primary Other convulsions Osteoporosis, unspecified osteoporosis type, unspecified pathological fracture presence Memory loss documented in this encounter Care Teams Upsetter Helper Relationship Specialty Start Date End Date Aria Thompson MD PCP - General 12/03/17 06/26/24 documented as of this encounter
--- OUTSIDE RECORDS SUMMARY | 2024-09-05 16:49 | XMS_ITS | Encounter Summary ---
Author Organization [facility] Address [address] [place] [address] Care Team Providers Care Fine Wire Drawer Name Role Phone Aria Thompson MD Primary Care Provider Reason for Visit * Reason Comments Follow-up nodule and ultrasoun d Encounter Details Date Type Department Care Team (Late st Contact Info) Description 06/30/2021 9:30 EDT Office Visit [facility] Endocrinology [address] [phone] Joanne Sotomayor MD [address] [facility] [address] [place] [address] Multinodular non-toxic goiter (Primary Dx) [...] EDT documented in this encounter Functional Status * Because of [...] 02/18/2018 9:55 EDT documented in this encounter Patient Instructions * Patient Instructions* Joanne Gunn MD - 06/30/2021 9:30 EDT ETHANOL (ALCOHOL) ABLATION OF THYROID NODULE documented in this encounter Progress Notes * Jeannette Corona RN - 06/30/2021 0930 EDT Goiter Kemper ordered Letter mailed * Joanne Gunn MD [...] she will call endo and E[facility] and ask if they [...] may reflect changes made after this encounter. LIALDA 1.2 gram EC tablet TAKE 4 TABLETS BY MOUTH EVERY MORNING 06/16/2021 added in this encounter Care Teams Fine Wire Drawer Relationship Specialty Start Date End Date Aria Thompson MD PCP - General 12/03/17 06/26/24 documented as of this encounter
--- OUTSIDE RECORDS SUMMARY | 2024-09-05 16:49 | XMS_ITS | Encounter Summary ---
Author Organization [facility] Address [address] [place] [address] Care Team Providers Care Api Product Manager Name Role Phone Aria Thompson MD Primary Care Provider Encounter Details Date Type Department Care Team (Late st Contact Info) Description 06/29/2020 Results Only [facility] [address] [place], [place] [phone] Joanne Sotomayor MD [address] [facility] [address] [place] [phone] Social History Tobacco Use Types Packs/Day Years [...] (06/29/2020) 06/29/2020 07/01/2020 7:3 2 EST Narrative [facility] - 07/01/2020 17:06 EST ----- ------- Name: SKYLA LONDONO ? : 56 ?Age/Sex: 59/F ?Unit#: [id number] ? Loc: LAB.OPX ? Status: REG REF ?? Reg Date: 06/30/20 ? Pt.Phone Number: ? ----- ------- Specimen: [id number] ? STATUS: SOUT ?Spec Date:06/29/20 ? Physician Copies: ?Joanne Valdes Tissues: A ?? THYROID FNA (LEFT) ? Aria Thompson CPT: 52263 ?? Units: ??1 ----- ------- ?? NON NITROCELLULOSE OPERATOR CYTOLOGY DIAGNOSIS THYROID, LEFT, ULTRASOUND GUIDED FINE [...] confirmed the above diagnosis. Test Performed by [facility], [address] [facility] [address] Barrel Waterer: Keisha Garcia MD PHD ----- ------- us Joanne Sotomayor MD PATHOLOGY ORDERABLES Final Re sult [facility] [address] [place] [address] documented in this encounter Visit Diagnoses Not on filedocumented in this encounter Care Teams Api Product Manager Relationship Specialty Start Date End Date Aria Thompson MD PCP - General 12/03/17 06/26/24 documented as of this encounter
--- OUTSIDE RECORDS SUMMARY | 2024-09-05 16:49 | XMS_ITS | Encounter Summary ---
Author Organization [facility] Address [address] [place] [address] Care Team Providers Care Laser Specialist Name Role Phone Aria Thompson MD Primary Care Provider Reason for Visit * Reason Onset Date Comments Biopsy Results 08/12/2020 Encounter Details Date Type Department Care Team (Late st Contact Info) Description 08/12/2020 Telephone [facility] Endocrinology [address] [place] [phone] Vantia Boykin RN Biopsy Results Social History Tobacco [...] Encounter - Vanita Boykin RN - 08/12/2020 7231 EST Pt. Given this information, has no [...] on filedocumented in this encounter Care Teams Laser Specialist Relationship Specialty Start Date End Date Aria Thompson MD PCP - General 12/03/17 06/26/24 documented as of this encounter
--- OUTSIDE RECORDS SUMMARY | 2024-09-05 16:49 | XMS_ITS | Encounter Summary ---
Author Organization [facility] Address [address] [place] [address] Care Team Providers Care Manager Summer Name Role Phone Aria Thompsno MD Primary Care Provider Reason for Visit * Reason Onset Date Comments Medications Refill 11/05/2019 Encounter Details Date Type Department Care Team (Late st Contact Info) Description 11/05/2019 Refill [facility] Neurology [facility] [address] [place], [place] [phone] Marleny Quezada MD [address] [place] [phone] Medications Refill Social History Tobacco Use Types [...] documented as of this encounter Care Teams Manager Summer Relationship Specialty Start Date End Date Aria Thompson MD PCP - General 12/03/17 06/26/24 documented as of this encounter
--- OUTSIDE RECORDS SUMMARY | 2024-09-05 16:49 | XMS_ITS | Encounter Summary ---
Author Organization [facility] Address [address] [place] [address] Care Team Providers Care Prn Occupational Therapist Name Role Phone Aria Thompson MD Primary Care Provider Rosi Ordoñez MD Primary Care Provider [phone] Encounter Details Date Type Department Care Team (Late st Contact Info) Description 06/21/2021 Lab Requisition [facility] Pathology & Laboratory Medicine - [facility] [address] [place] [address] Aria Thompson MD [address] [place] [address] Encounter for gynecological examination (general) [...] types, PCR Negative Negative 06/30/2021 7:59 EDT [facility] Comment:No E6 or E7 mRNA is detected from HPV types 16,18,31,33,35,39,45,51,52,56,58,59,66, and 68 by lump room supervisor mediated amplification. Papanicolaou smear specimen (specimen) CERVIX UTERI STRUCTURE / Unknown 06/20/2021 17:11 EDT 06/27/2021 12:22 EDT us Aria Thompson MD MICROBIOLOGY - GENERAL ORDERABLES Final Result [facility] [address] [place] [address] * PAP TEST (06/20/2021 17:11 EDT) Specimens A. Cervix and/or Endocervix , ThinPrep Imaging System with Manual Evaluation 06/30/2021 7:59 EDT [facility] Specimen Adequacy Satisfactory for Evaluation - transformation zone component present 06/30/2021 7:59 EDT [facility] General Categorization Negative for intraepithelial lesion or malignancy 06/30/2021 7:59 EDT [facility] Descriptive Diagnosis Fungal organisms present morphologically consistent with Shaye species. 06/30/2021 7:59 EDT [facility] Attestation . 06/30/2021 7:59 EDT [facility] at 0759 Clinical History Clinical History, Signs, Symptoms, Chief Complaint, Pertaining to This Order: See below Last Menstral Period: MENOPAUSE 06/30/2021 7:59 EDT [facility] HPV The result for the Human Papillomavirus (HPV) Detection-High Risk Types is Negative. No E6 or E7 mRNA is detected from HPV types 16,18,31,33,35,39 ,45,51,52,56,58,5 9,66, and 68 by lump room supervisor mediated amplification.Carly ting was performed on specimen [id number] and was resulted on 06/30/2021 0721 EDT by EVIE, LAB INSTRUMENT RESULTS IN 06/30/2021 7:59 EDT [facility] Performing Lab [facility] 06/30/2021 7:59 EDT [facility] Scanned Images 06/30/2021 7:59 EDT [facility] Papanicolaou smear specimen (specimen) CERVIX UTERI STRUCTURE / Unknown 06/20/2021 17:11 EDT 06/22/2021 9:01 EDT us Aria Thompson MD PATHOLOGY ORDERABLES Fi nal Result [facility] [address] [place] [address] documented in this encounter Visit Diagnoses Diagnosis Encounter for gynecological examination (general) (routine) without abnormal findings documented in this encounter Care Teams Prn Occupational Therapist Relationship Specialty Start Date End Date Aria Thompson MD PCP - General 12/03/17 06/26/24 Rosi Ordoñez MD [address] [place] [phone] PCP - General Family Medicine - Primary Care 06/27/24 documented as of this encounter
--- OUTSIDE RECORDS SUMMARY | 2024-09-05 16:49 | XMS_ITS | Encounter Summary ---
Author Organization [facility] Address [address] [place] [address] Care Team Providers Care Supervisor Paste Mixing Name Role Phone Aria Thompson MD Primary Care Provider Reason for Visit * Reason Onset Date Comments Follow-up 05/30/2019 Encounter Details Date Type Department Care Team (Late st Contact Info) Description 05/30/[address] [facility] Medical Psychology - [address] [phone] Amber Andersen, PhD [address] [phone] Follow-up Social History Tobacco Use [...] contact our service with future concerns at [phone]. documented in this encounter Plan of Treatment Not on file documented as of this encounter Visit Diagnoses Not on filedocumented in this encounter Care Teams Supervisor Paste Mixing Relationship Specialty Start Date End Date Aria Thompson MD PCP - General 12/03/17 06/26/24 documented as of this encounter
--- OUTSIDE RECORDS SUMMARY | 2024-09-05 16:49 | XMS_ITS | Encounter Summary ---
Author Organization [facility] Address [address] [place] [address] Care Team Providers Care Mission Support Specialist Name Role Phone Aria Thompson MD Primary Care Provider Reason for Visit * Reason Onset Date Comments Appointment Related 04/29/2020 Bumped Encounter Details Date Type Department Care Team (Late st Contact Info) Description 04/29/2020 Telephone [facility] Endocrinology - [facility] [address] [place] [address] Amber Mendosa DO [address] [facility] [address] [place] [address] Appointment Related (Bumped) Social History [...] on filedocumented in this encounter Care Teams Mission Support Specialist Relationship Specialty Start Date End Date Aria Thompson MD PCP - General 12/03/17 06/26/24 documented as of this encounter
--- OUTSIDE RECORDS SUMMARY | 2024-09-05 16:49 | XMS_ITS | Encounter Summary ---
Author Organization [facility] Address [address] [place] [address] Care Team Providers Care Industrial Arts Public [employer] Teacher Name Role Phone Aria Thompson MD Primary Care Provider Reason for Visit * Reason Comments Memory Loss * Prior Authorization (Routine) - Closed Specialty Diagnoses / Procedures Referred By Merari rosario Referred To Contact Psychology Diagnoses Memory loss Seizures (HCC-CMS) Marleny Quezada MD Phone: tel: fax: [facility] Memory Program - Medical Office Building [address] [place] [address] Phone: tel: fax: Referral ID Status Reason Start Date Expiration Date V isits Requested Visits Authorized [id number] Closed Specialty Services Required 10/29/2018 1 1 Encounter Details Date Type Department Care Team (Late st Contact Info) Description 05/12/2019 9:00 EDT Office Visit [facility] Medical Psychology [facility] [address] [place] [address] Amber Andersen, PhD [address] [phone] Memory loss (Primary Dx); Depression, [...] documented in this encounter Progress Notes * Ganesh Phd, Amber Menendez, PhD - 05/12/2019 0900 EDT [facility] Neuropsychological Evaluation Name: Elsa Lujan Age: 58 y.o. 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 Lujan is currently represented by rotary surface grinder Jasen Stein for legal support of a [...] She completed a bachelor's degree from the [employer] in business administration and accounting. She recalls being a good student with no suspicion or formal diagnosis for a learning disability. She denies receiving special education resources or academic retention. Academic strengths were noted for mathematics with weaknesses for Divehi. 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 She has been on medical leave for the past 3 weeks. Managing workplace responsibilities has become more effortful as a result of memory loss, forgetfulness, and slowed information processing. PSYCHOSOCIAL HISTORY Ms. Lujan was born and raised in her [place] to her biological parents. 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 Her mother was at age 77 from [...] concerns for self-harm. She independently manages self-care, events and promotions assistant (shopping, cooking, cleaning), medications, and finances consistent with baseline. Medically he has observed greater recurrence of seizures (little ones) in the billing rep with primarily a scratching motion which ends with a loud belch. He notes the most recent more significant seizure occurred in January 2019 while at a conference in [place] where she was dazed, confused, and able [...] of Premorbid Functioning (TOPF); WAIS-IV (select subtests); [place] Naming Test; COWAT; [place] Verbal Learning Test-II (Standard Form); Bina Memory Scale-IV (Logical Memory I/II); Brief Visuospatial Memory Test-Revised (BVMT); Joanna Martinez Executive Function System (Color Word); [place] Making Test; [place] Card Sorting Task; Clock [...] She lost response set twice. On the [place] Making Test (B) her performance was low [...] workplace. Referrals for outpatientoccupational therapy at the [facility] can be made by contacting [phone]. ?? Emotional Support: Continued supportive counseling is [...] arise, this service can be contacted at [phone]. Billing Neurobehavioral Status Exam Total time= 76 minutes ([place] [address] by neuropsychologist) Test Evaluation Services Total time= 149 minutes [place] 11257 [place] 55736 by neuropsychologist) Test Administration and Scoring Total time= 69 minutes ([place] [address]68[address] [place] of 19743 by neuropsychologist) Total time= 238 minutes ([place] 165[address] [place] [address] by armorer technician) Amebr Andersen, Ph.D. Psychologist-Doctorate documented in this encounter Plan of Treatment Not on file documented as of this encounter Visit Diagnoses Diagnosis Memory loss- Primary Depression, unspecified depression type Anxiety Anxiety state, unspecified documented in this encounter Care Teams [employer] Teacher Relationship Specialty Start Date End Date Aria Thompson MD PCP - General 12/03/17 06/26/24 documented as of this encounter
--- OUTSIDE RECORDS SUMMARY | 2024-09-05 16:49 | XMS_ITS | Encounter Summary ---
Author Organization [facility] Address [address] [place] [address] Care Team Providers Care Ortho Rn Name Role Phone Aria Thompson MD Primary Care Provider Reason for Visit * Reason Comments Thyroid Problem consult on thyroid n odules Encounter Details Date Type Department Care Team (Late st Contact Info) Description 06/23/2020 14:00 EDT Office Visit [facility] Endocrinology [address] [place], [place] [phone] Joanne Sotomayor MD [address] [facility] [address] [place] [address] Nontoxic multinodular goiter (Primary Dx) [...] documented in this encounter Progress Notes * Vanita Boykin RN - 06/23/[address] 2017 * Joanne Gunn MD - 06/23/2020 1400 EDT Due to computer system disruption, additional clinical information for this visit is Scanned Note. For patients, please refer to guidance in [employer] on how to locate information. Generally this [...] may reflect changes made after this encounter. GUAIATUSSIN AC 10-100 mg/5 mL liquid TAKE 10 ML NEEDED EVERY 4 HOURS FOR 7 DAYS 05/06/2020 1 Hydrocortisone Acetate 30 mg suppository INSERT ONE SUPPOSITORY RECTALLY TWICE A DAY 05/25/2020 1 ondansetron (ZOFRAN) 4 mg tablet TAKE 1 TABLET BY MOUTH EVERY 8 HOURS FOR 10 DAYS 05/06/2020 1 mesalamine (CANASA) 1,000 mg suppository INSERT ONE SUPPOSITORY RECTALLY ONCE OR TWICE A DAY 02/04/2018 1 added in this encounter Care Teams Ortho Rn Relationship Specialty Start Date End Date Aria Thompson MD PCP - General 12/03/17 06/26/24 documented as of this encounter
--- OUTSIDE RECORDS SUMMARY | 2024-09-05 16:49 | XMS_ITS | Encounter Summary ---
Author Organization [facility] Address [address] [place] [address] Care Team Providers Care Supply Chain Vice President Name Role Phone Rosi Ordoñez MD Primary Care Provider [phone] Encounter Details Date Type Department Care Team (Late st Contact Info) Description 09/05/2024 Lab Requisition [facility] Pathology & Laboratory Medicine - [address] [address] Outr Resulting Lab, Provider Social History Tobacco [...] Type Priority Associated Diagnoses Orde r Schedule HEPATITIS C AB W REFLEX TO H CV RNA BY PCR Lab Routine Ordered: 025 documented as of this encounter Visit Diagnoses Not on filedocumented in this encounter Care Teams Supply Chain Vice President Relationship Specialty Start Date End Date Rosi Ordoñez MD [address] [place] [address] PCP - General Family Medicine - Primary Care 06/27/24 documented as of this encounter
--- OUTSIDE RECORDS SUMMARY | 2024-09-05 16:49 | XMS_ITS | Encounter Summary ---
Author Organization [facility] Address [address] [place] [address] Care Team Providers Care Automobile Repair Service Estimator Name Role Phone Aria Thompson MD Primary Care Provider Reason for Visit * Reason Onset Date Comments Other 11/05/2018 Encounter Details Date Type Department Care Team (Late st Contact Info) Description 11/05/2018 Telephone [facility] Neurology [facility] [address] [place] [address] Marleny Quezada MD [address] [place] [address] Other Social History Tobacco Use [...] on filedocumented in this encounter Care Teams Automobile Repair Service Estimator Relationship Specialty Start Date End Date Aria Thompson MD PCP - General 12/03/17 06/26/24 documented as of this encounter
--- OUTSIDE RECORDS SUMMARY | 2024-09-05 16:49 | XMS_ITS | Encounter Summary ---
Author Organization [facility] Address [address] [place] [address] Care Team Providers Care Cardiology Technologist Name Role Phone Aria Thompson MD Primary Care Provider Encounter Details Date Type Department Care Team (Late st Contact Info) Description 03/27/2019 Phlebotomy Only [address] [address] [facility] Counselor, Outpatient Other osteoporosis without current pathological fracture [...] 4.2 3.5 - 5.0 mEq/L 03/27/2019 17:02 [facility] Sodium 128(L) 136 - 145 mEq/L 03/27/2019 17:02 [facility] Chloride 91(L) 96 - 110 mEq/L 03/27/2019 17:02 [facility] CO2 28 22 - 32 mEq/L 03/27/2019 17:02 [facility] Total Alkaline Phosphatase 87 38 - 126 U/L 03/27/2019 17:02 [facility] Bilirubin, Total <0.5 <1.4 mg/dl 03/27/20 19 17:02 [facility] AST 22 15 - 46 U/L 03/27/2019 17:02 [facility] ALT 24 <53 U/L 03/27/2019 17:02 [facility] Albumin 4.7 3.4 - 4.9 g/dl 03/27/2019 17:02 [facility] Total Protein 7.0 6.3 - 8.2 g/dl 03/27/2019 17:02 [facility] Creatinine 0.59 0.52 - 1.04 mg/dl 03/27/2019 17:02 [facility] GFR, Calculated 100 >60 ml/min/1.7 3m2 03/27/2019 17:02 EDT [facility] Comment: eGFR calculated using CKD-EPI equation for non Americans. Multiply eGFR by 1.16 for Americans. BUN 11 10 - 26 mg/dl 03/27/2019 17:02 T [facility] Calcium 9.7 8.5 - 10.5 mg/dl 03/27/2019 17:02 [facility] Calculated Calcium 9.1 8.5 - 10.5 mg/dl 03/27/2019 17:02 T [facility] Glucose, Serum 96 70 - 100 mg/dl 03/27/2019 17:02 [facility] Fasting? No 03/27/2019 15:59 [facility] Blood specimen (specimen) BLOOD SPECIMEN / Unknown 03/27/2019 16:02 EDT 03/27/2019 16:32 EDT Amber Mendosa DO CHEMISTRY & BLOOD GAS ORDERA BLES Final Result Performing Organization Address City/[facility]/ZIP Co de Phone Number [facility] [address] [place] [address] * PTH INTACT (03/27/2019 16:02 EDT) PTH 48 19 - 88 pg/ml 03/28/2019 10:09 T [facility] Comment:Reference range base d on normal calcium level. Blood specimen (specimen) BLOOD SPECIMEN / Unknown 03/27/2019 16:02 EDT 03/27/2019 16:32 EDT Amber Mendosa DO CHEMISTRY & BLOOD GAS ORDERA BLES Final Result [facility] [address] [place] [address] * PHOSPHORUS (03/27/2019 16:02 EDT) Phosphorus 4.2 2.5 - 4.5 mg/dl 03/27/2019 17:02 EDT [facility] Blood specimen (specimen) BLOOD SPECIMEN / Unknown 03/27/2019 16:02 EDT 03/27/2019 16:32 EDT us Amber Mendosa DO CHEMISTRY & BLOOD GAS ORDERA BLES Final Result [facility] [address] [place] [address] * (ABNORMAL) COMPLETE BLOOD COUNT AND DIFFERENTIAL (03/27/2019 16:02 EDT) WBC 5.21 4.0 - 12.4 K/cmm 03/27/2019 16:40 [facility] RBC 4.00 3.86 - 5.04 M/cmm 03/27/2019 16:40 [facility] Hemoglobin 12.4 11.6 - 15.2 gm/dl 03/27/2019 16:40 [facility] HCT 35.7 34.9 - 44.4 % 03/27/2019 16:40 [facility] MCV 89 81 - 98 fl 03/27/2019 16:40 [facility] MCH 31.0 26.7 - 33.3 pg 03/27/2019 16:40 [facility] MCHC 34.7 32.1 - 35.9 gm/dl 03/27/2019 16:40 [facility] RDW-CV 13.7 <14.7 % 03/27/2019 16:40 [facility] RDW-SD 45.2 <50.4 fl 03/27/2019 16:40 [facility] PLT 392(H) 141 - 377 K/cmm 03/27/2019 16:40 [facility] MPV 8.7(L) 9.5 - 12.7 fl 03/27/2019 16:40 [facility] % Neutrophils 42.6 % 03/27/2019 16:40 [facility] % Lymphocytes 38.4 % 03/27/2019 16:40 [facility] % Monocytes 13.6 % 03/27/2019 16:40 [facility] % Eosinophils 3.3 % 03/27/2019 16:40 EDT [facility] % Basophils 1.7 % 03/27/2019 16:40 [facility] % Immature Grans 0.4 % 03/27/2019 16:40 [facility] ABS Neutrophils 2.22 2.20 - 8.85 K/cmm 03/27/2019 16:40 [facility] ABS Lymphs 2.00 1.09 - 3.30 K/cmm 03/27/2019 16:40 EDT [facility] ABS Monocytes 0.71 0.1 - 0.8 K/cmm 03/27/2019 16:40 [facility] ABS Eosinophils 0.17 0.03 - 0.61 K/cmm 03/27/2019 16:40 T [facility] ABS Basophils 0.09 0.01 - 0.11 K/cmm 03/27/2019 16:40 [facility] ABS Immature Grans 0.02 0 - 0.06 K/cmm 03/27/2019 16:40 [facility] Type of Diff: Automated 03/27/2019 16:40 [facility] Blood specimen (specimen) BLOOD SPECIMEN / Unknown 03/27/2019 16:02 EDT 03/27/2019 16:32 EDT us Amber Mendosa DO PACKAGES & DNA PROBE ORDERAB LES Final Result [facility] [address] [place] [address] * VITAMIN D (25,OH) (03/27/2019 16:02 EDT) 25OH Vitamin D Tot 53.2 30 - 100 ng/ml 03/28/2019 12:45 EDT [facility] Comment: Reference Range: Deficient = <10 ng/ml Insufficient = 10-30 ng/ml Sufficient = 30-100 ng/ml Toxic = >100 ng/ml Blood specimen (specimen) BLOOD SPECIMEN / Unknown 03/27/2019 16:02 EDT 03/27/2019 16:32 EDT us Amber Mendosa DO CHEMISTRY & BLOOD GAS ORDERA BLES Final Result Performing Organization Address [facility] Co de Phone Number [facility] [address] [place] [address] * TSH (03/27/2019 16:02 EDT) TSH 2.78 0.47 - 4.68 uIU/ml 03/27/2019 17:33 EDT [facility] Comment: The results of this assay can be falsely lowered due to the consumption of Biotin. Blood specimen (specimen) BLOOD SPECIMEN / Unknown 03/27/2019 16:02 EDT 03/27/2019 16:32 EDT us Amber Mendosa DO CHEMISTRY & BLOOD GAS ORDERA BLES Final Result Performing Organization Address [facility] de Phone Number [facility] [address] [place] [address] documented in this encounter Visit Diagnoses Diagnosis Other osteoporosis without current pathological fracture- Primary documented in this encounter Care Teams Cardiology Technologist Relationship Specialty Start Date End Date Aria Thompson MD PCP - General 12/03/17 06/26/24 documented as of this encounter
--- OUTSIDE RECORDS SUMMARY | 2024-09-05 16:49 | XMS_ITS | Encounter Summary ---
Author Organization [facility] Address [address] [place] [address] Care Team Providers Care Birthing Nurse Name Role Phone Aria Thompson MD Primary Care Provider Rosi Ordoñez MD Primary Care Provider [phone] Encounter Details Date Type Department Care Team (Late st Contact Info) Description 08/31/2023 Lab Requisition [facility] Pathology & Laboratory Medicine - [address] [address] Outr Resulting Lab, Provider Social History Tobacco [...] 10:21 EST) Hold Hold 08/31/2023 18:46 EST [facility] Blood VENOUS BLOOD / Unknown 08/31/2023 10:21 EST 08/31/2023 17:44 EST us Provider Outr Resulting Lab LAB INFO SERVICE AND SUPPORT & PHONE RESULT Final Result Performing Organization Address City/[facility]/ZIP Co de Phone Number [facility] [address] [place] [address] * HEPATITIS C AB W REFLEX TO HCV RNA BY PCR (08/31/2023 10:21 EST) Hep C Antibody Negative Negative 08/31/2023 19:48 EST [facility] Blood VENOUS BLOOD / Unknown 08/31/2023 10:21 EST 08/31/2023 17:44 EST us Provider Outr Resulting Lab CHEMISTRY & BLOOD GA S ORDERABLES Final Result Performing Organization Address City/[facility]/ZIP Co de Phone Number [facility] [address] [place] [address] * ALPHA 1 ANTITRYPSIN (08/31/2023 10:21 EST) Alpha 1 Antitrypsin 124 90 - 200 mg/dL 09/03/2023 10:13 EST [facility] Blood VENOUS BLOOD / Unknown 08/31/2023 10:21 EST 08/31/2023 17:44 EST us Provider Outr Resulting Lab CHEMISTRY & BLOOD GA S ORDERABLES Final Result Performing Organization Address [facility] de Phone Number [facility] [address] [place] [address] * (ABNORMAL) ANTI NUCLEAR AB (TORRES), IFA (08/31/2023 10:21 EST) TORRES Interpretation Positive(A) Negative 09/03/2023 15:59 EST [facility] Comment: For titers greater than [...] Pattern 1 1:2560 Homogeneous 09/03/2023 15:59 EST [facility] Blood VENOUS BLOOD / Unknown 08/31/2023 10:21 EST 08/31/2023 17:44 EST Narrative [facility] - 09/03/2023 15:59 EST Results were obtained with the INOVA NOVA Lite HEp-2 TORRES Kit by indirect immunofluorescence. us Provider Outr Resulting Lab IMMUNOLOGY AND SEROL OGY ORDERABLES Final Result Performing Organization Address [facility] Co de Phone Number [facility] [address] [place] [address] documented in this encounter Visit Diagnoses Not on filedocumented in this encounter Care Teams Birthing Nurse Relationship Specialty Start Date End Date Aria Thompson MD PCP - General 12/03/17 06/26/24 Rosi Ordoñez MD [address] [place] [phone] PCP - General Family Medicine - Primary Care 06/27/24 documented as of this encounter
--- OUTSIDE RECORDS SUMMARY | 2024-09-05 16:49 | XMS_ITS | Clinical Summary ---
Author Organization [facility] Address [address] [place] [address] Care Team Providers Care Pharmaceutical Process Engineer Name Role Phone Rosi Ordoñez MD Primary Care Provider [phone] Allergies Active Allergy Reactions Criticality Noted Date Comments Sulfa (Sulfonamide Antibiotics) Hives 04/2018 Medications cholecalciferol , vitamin D3, (VITAMIN D3 ORAL) Take 2,000 Tabs by mouth daily. Active OXcarbazepine (TRILEPTAL) 300 mg tablet Take one tablet by mouth 4x daily BRAND ONLY 120 Tab 11/15/2020 Active LIALDA 1.2 gram EC tablet TAKE 4 TABLETS BY MOUTH EVERY MORNING 06/16/2021 Active Active Problems Patient Care Coordination No te Formatting of this note migh t be different from the original. [facility] Neuropsychology Program [place] scanned to [employer] on: 2019-05-14 Problem Noted Date Diagnosed Date Nontoxic multinodular goiter 08/06/2020 Other osteoporosis without current pathological fracture 03/27/2019 Encounters Date Type Department Care Team Description 09/05/2024 Lab Requisition [facility] Pathology & Laboratory [address] [address] Outr Resulting Lab, Provider 09/05/20[address] [facility] Pathology & Laboratory [address] [address] Outr Resulting Lab, Provider 07/16/[address] [facility] Pathology & Laboratory [address] [address] Fazal Tee MD Nontoxic multinodular goiter from Last 3 Months Surgical History Surgery Date Site/Laterality Comments EMG/NERVE [...] Health Maintenance Due Date Last Done Comments Fall Risk Screening 11/02/2023 COVID-19 Vaccine ( season) 2024 RSV Immunization ( o r 60+ Years) (1 - 1-dose 75+ series) 2033 Hepatitis C Screen Completed 08/31/2023 Procedures Procedure Name Priority Date/Time Associated Diagnosis Comments NON SERVOMECHANISM DESIGNER/FNA CYTOLOGY Today 07/15/2024 12:20 EST Nontoxic multinodular goiter US OUTSIDE IMAGES THYROID Routine 06/24/2024 12:52 EDT HEPATITIS C AB W REFLEX TO HCV RNA BY PCR Today 08/31/2023 10:21 EST from Last 3 Months or Most Recently Relevant to Health Maintenance Results * NON SERVOMECHANISM DESIGNER/FNA CYTOLOGY (07/15/2024 12:20 EST) Ancillary Studies Addendum This addendum report is issued to provide the Afirma Gene Sequencing Anesthesiology Fellow results. Please see the attached documentation. 07/29/2024 16:00 [facility] Addendum electronically signed by Jony Cr MD on 07/29/2024 at 1600 Note to Patient The following pathology results have been interpreted by your pathologist and may be available to you before your health provider has had the opportunity to review them. Please allow time for your provider to receive these results and explore management options, if applicable. 07/29/2024 16:00 [facility] Final Diagnosis A. THYROID, LEFT, ULTRASOUND-GUIDED FINE-NEEDLE ASPIRATION: - Atypia of undetermined significance (AUS). - See comment 07/29/2024 16:00 [facility] Diagnosis Comment Stained aspirate smear [...] the specimen processing was performed at the [facility] Pathology Department, [address] [place] [address] (CLIA [id number]). The professional component of the specimen evaluation (slide review and issuing of the final diagnosis) was performed at [facility], [address] [place] [address] (CLIA License Number [id number]). 07/29/2024 16:00 [facility] Attestation By the signature below, the attending physician certifies that they have personally conducted a gross and/or microscopic examination of the described specimens and rendered or confirmed the above diagnosis. 07/29/2024 16:00 [facility] at 1152 Rapid Diagnosis A. THYROID NODULE (2.8 CM), LEFT, ULTRASOUND GUIDED FINE NEEDLE ASPIRATION: Evaluation Episode 1: Pass 1-2: Adequate follicular cells; abundant siderophage's. Afirma collected.( 2 dedicated passes). The above rapid on site evaluation was performed by pathologist Dr. Areli Garcia at [facility], [address] [place] [address]. 07/15/24; 1220 07/29/2024 16:00 [facility] Clinical History 2.8cm left thyroid nodule. E04.2 07/29/2024 16:00 [facility] Gross Description A. 3 fixed prepared slides, 4 air dried prepared slides, and 1 tube of CytoLyt were received and processed by selective cellular enhancement technique. 1 FNAprotect tube for possible Afirma testing was also received and will be held for 60 days from date of collection. 07/29/2024 16:00 [facility] Performing Lab [facility] 16:00 [facility] Scanned Images 07/29/2024 16:00 [facility] Fine Needle Aspirate STRUCTURE OF LEFT LOBE OF THYROID GLAND / Unknown 07/15/2024 12:20 EST 07/16/2024 6:10 EST us Fazal Tee MD PATHOLOGY ORDERABLES Edited Resu lt - Final [facility] [address] [place] [address] [facility] [address] [place] [address] * US OUTSIDE IMAGES THYROID (06/24/2024 12:52 EDT) Narrative 06/27/2024 12:52 EDT This is a non-reportable exam. us External Imaging IMG OTHER IMAGING ORDERABLES Fi nal Result * HEPATITIS C AB W REFLEX TO HCV RNA BY PCR (08/31/2023 10:21 EST) Hep C Antibody Negative Negative 08/31/2023 19:48 EST [facility] Blood VENOUS BLOOD / Unknown 08/31/2023 10:21 EST 08/31/2023 17:44 EST us Provider Outr Resulting Lab CHEMISTRY & BLOOD GA S ORDERABLES Final Result [facility] [address] [place] [address] from Last 3 Months or Most Recently Relevant to Health Maintenance Insurance MEDICARE COUNT INCLUDES THE [facility] Care Teams Pharmaceutical Process Engineer Relationship Specialty Start Date End Date Rosi Ordoñez MD [address] [place] [phone] PCP - General Family Medicine - Primary Care 06/27/24
--- OUTSIDE RECORDS SUMMARY | 2024-09-05 16:49 | XMS_ITS | Encounter Summary ---
Author Organization [facility] Address [address] [place] [address] Care Team Providers Care Fire Extinguisher Inspector Name Role Phone Aria Thompson MD Primary Care Provider Reason for Visit * Reason Onset Date Comments Coordination Of Care 10/16/2019 Encounter Details Date Type Department Care Team (Late st Contact Info) Description 10/16/2019 Telephone [facility] Endocrinology - [address] [address] Samantha Alonzo RN Coordination Of Care Social [...] Encounter - Samantha Alonzo RN - 10/16/2019 1319 EST Pt called. She reports that Dr. Lujan has moved and is now practicing at [facility]. . Fax there is [phone]. Confirmed that pt and her PCP are at this location. All paperwork faxed 10/16/21 to fax number above. Pt aware. Patient verbalized understanding. No barriers to learning noted. Samanhta Alonzo RN Endocrinology documented in this encounter Plan of Treatment Not on file documented as of this encounter Visit Diagnoses Not on filedocumented in this encounter Care Teams Fire Extinguisher Inspector Relationship Specialty Start Date End Date Aria Thompson MD PCP - General 12/03/17 06/26/24 documented as of this encounter
--- OUTSIDE RECORDS SUMMARY | 2024-09-05 16:49 | XMS_ITS | Encounter Summary ---
Author Organization [facility] Address [address] [place] [address] Care Team Providers Care Telephoto Installer Name Role Phone Aria Thompson MD Primary Care Provider Reason for Visit * Reason Onset Date Comments Appointment Related 10/14/2019 Encounter Details Date Type Department Care Team (Late st Contact Info) Description 10/14/2019 Telephone [facility] Endocrinology - [facility] [address] [place] [address] Amber Mendosa, [address] [facility] [address] [place] [address] Appointment Related Social History Tobacco [...] Encounter - Reno Lux RN - 10/14/2019 8004 EST Office note and fax cover sheet [...] on filedocumented in this encounter Care Teams Telephoto Installer Relationship Specialty Start Date End Date Aria Thompson MD PCP - General 12/03/17 06/26/24 documented as of this encounter
--- OUTSIDE RECORDS SUMMARY | 2024-09-05 16:49 | XMS_ITS | Encounter Summary ---
Author Organization [facility] Address [address] [place] [address] Care Team Providers Care Water Registrar Name Role Phone Aria Thompson MD Primary Care Provider Rosi Ordoñez MD Primary Care Provider [phone] Encounter Details Date Type Department Care Team (Latest Contact Info) Description 09/09/2019 Lab Requisition [facility] Pathology & Laboratory Medicine - [address] [address] Jeovany Perales MD [address] [address] Ulcerative colitis, unspecified, without complications ([facility]); Diarrhea, unspecified; Hemorrhage of anus and rectum [...] 15 EST Ulcerative colitis, unspecified, without complications ([facility]) Diarrhea, unspecified Hemorrhage of anus and rectum documented in this encounter Results * SURGICAL PATHOLOGY (09/08/2019 8:15 EST) Amendment Comment This is an amended report which replaces the original pathology report issued on 09/11/2019. This amendment is being issued to update the trainee attestation. There is no change to the diagnosis in this case. 10/24/2019 12:03 [facility] Final Diagnosis A. COLON, RIGHT, BIOPSY: - Quiescent colitis. - Negative for dysplasia. B. COLON, LEFT, BIOPSY: - Multifocal [id number] active chronic colitis. - Negative for dysplasia. Basil Pleitez MD 10/24/2019 12:03 [facility] Amendment electronically signed by Rey Montalvo MD on 10/24/2019 at 1203 at 1020 Clinical History HX of ulcerative colitis, rectal bleeding, R/O dysplasia Evaluate for dysplasia HX ulcerative colitis since age 24 with recurrent flares No polyps or tumors 10/24/2019 12:03 [facility] Attestation There was significant resident/fellow involvement in the diagnostic evaluation of this case. By the signature below, the attending physician certifies that they have personally conducted a gross and/or microscopic examination of the described specimens and rendered or confirmed the above diagnosis. 10/24/2019 12:03 [facility] Amendment electronically signed by [...] The specimens are submitted entirely in B1-B3. 09/09/2019 16:52 10/24/2019 12:03 EST [facility] Resident/Buck w: Basil Pleitez MD 10/24/2019 12:03 EST [facility] Scanned Images 10/24/2019 12:03 EST [facility] Tissue ENTIRE LEFT COLON / Unknown 09/08/2019 8:15 EST 09/09/2019 16:30 EST Tissue specimen (specimen) LEFT COLON STRUCTURE / Unknown 09/08/2019 8:15 EST 09/09/2019 16:30 EST us Jeovany Perales MD PATHOLOGY ORDERABLES Edited Result - Final [facility] [address] [place] [address] documented in this encounter Visit Diagnoses Diagnosis Ulcerative colitis, unspecified, without complications ([facility]) Diarrhea, unspecified Hemorrhage of anus and rectum Hemorrhage of rectum and anus documented in this encounter Care Teams Water Registrar Relationship Specialty Start Date End Date Aria Thompson MD PCP - General 12/03/17 06/26/24 Rosi Ordoñez MD [address] [place] [phone] PCP - General Family Medicine - Primary Care 06/27/24 documented as of this encounter
--- OUTSIDE RECORDS SUMMARY | 2024-09-05 16:49 | XMS_ITS | Encounter Summary ---
Author Organization [facility] Address [address] [place] [address] Care Team Providers Care Script Manager Name Role Phone Aria Thompson MD Primary Care Provider Reason for Visit * Reason Comments New Patient Visit * Consult (Routine) - Specialty Report Received Specialty Diagnoses / Procedures [facility] Contact Osteoporosis Diagnoses Osteoporosis, unspecified osteoporosis type, unspecified pathological fracture presence Marleny Quezada MD Phone: tel: fax: [facility] Osteoporosis [address] [address] Phone: tel: fax: Referral ID Status Reason Start Date Expiration Date Visits Requested Visits Authorized [id number] Specialty Report Received Specialty Services Required 10/29/2018 1 1 Encounter Details Date Type Department Care Team (Late st Contact Info) Description 03/27/2019 15:00 EDT Office Visit [facility] Osteoporosis [address] [address] Amber Mendosa, DO [address] [place] [address] [place] [phone] Other osteoporosis without current pathological fracture [...] outweighs these rare risks. Any medication, including pwjv-[id number]-muxbixm medications like aspirin, have potential side effects [...] from fractures. Amber Mendosa DO, is an preparation supervisor canning and director of the Metabolic Bone Program at the [facility]. documented in this encounter Progress Notes [...] 0.47 - 4.68 uIU/ml 03/27/2019 17:33 EDT [facility] Comment: The results of this assay can be falsely lowered due to the consumption of Biotin. Blood specimen (specimen) BLOOD SPECIMEN / Unknown 03/27/2019 16:02 EDT 03/27/2019 16:32 EDT us Amber Mendosa DO CHEMISTRY & BLOOD GAS ORDERA BLES Final Result [facility] [address] [place] [id number] * VITAMIN D (25,OH) (03/27/2019 16:02 EDT) 25OH Vitamin D Tot 53.2 30 - 100 ng/ml 03/28/2019 12:45 [facility] Comment: Reference Range: Deficient = <10 ng/ml Insufficient = 10-30 ng/ml Sufficient = 30-100 ng/ml Toxic = >100 ng/ml Blood specimen (specimen) BLOOD SPECIMEN / Unknown 03/27/2019 16:02 EDT 03/27/2019 16:32 EDT us Amber Mendosa DO CHEMISTRY & BLOOD GAS ORDERA BLES Final Result [facility] [address] [place] [address] * (ABNORMAL) COMPLETE BLOOD COUNT AND DIFFERENTIAL (03/27/2019 16:02 EDT) WBC 5.21 4.0 - 12.4 K/cmm 03/27/2019 16:40 [facility] RBC 4.00 3.86 - 5.04 M/cmm 03/27/2019 16:40 [facility] Hemoglobin 12.4 11.6 - 15.2 gm/dl 03/27/2019 16:40 [facility] HCT 35.7 34.9 - 44.4 % 03/27/2019 16:40 [facility] MCV 89 81 - 98 fl 03/27/2019 16:40 [facility] MCH 31.0 26.7 - 33.3 pg 03/27/2019 16:40 [facility] MCHC 34.7 32.1 - 35.9 gm/dl 03/27/2019 16:40 [facility] RDW-CV 13.7 <14.7 % 03/27/2019 16:40 [facility] RDW-SD 45.2 <50.4 fl 03/27/2019 16:40 [facility] PLT 392(H) 141 - 377 K/cmm 03/27/2019 16:40 [facility] MPV 8.7(L) 9.5 - 12.7 fl 03/27/2019 16:40 [facility] % Neutrophils 42.6 % 03/27/2019 16:40 [facility] % Lymphocytes 38.4 % 03/27/2019 16:40 [facility] % Monocytes 13.6 % 03/27/2019 16:40 [facility] % Eosinophils 3.3 % 03/27/2019 16:40 [facility] % Basophils 1.7 % 03/27/2019 16:40 [facility] % Immature Grans 0.4 % 03/27/2019 16:40 [facility] ABS Neutrophils 2.22 2.20 - 8.85 K/cmm 03/27/2019 16:40 [facility] ABS Lymphs 2.00 1.09 - 3.30 K/cmm 03/27/2019 16:40 [facility] ABS Monocytes 0.71 0.1 - 0.8 K/cmm 03/27/2019 16:40 [facility] ABS Eosinophils 0.17 0.03 - 0.61 K/cmm 03/27/2019 16:40 [facility] ABS Basophils 0.09 0.01 - 0.11 K/cmm 03/27/2019 16:40 [facility] ABS Immature Grans 0.02 0 - 0.06 K/cmm 03/27/2019 16:40 [facility] Type of Diff: Automated 03/27/2019 16:40 [facility] Blood specimen (specimen) BLOOD SPECIMEN / Unknown 03/27/2019 16:02 EDT 03/27/2019 16:32 EDT us Amber Mendosa DO PACKAGES & DNA PROBE ORDERAB LES Final Result [facility] [address] [place] [address] * PHOSPHORUS (03/27/2019 16:02 EDT) Phosphorus 4.2 2.5 - 4.5 mg/dl 03/27/2019 17:02 EDT [facility] Blood specimen (specimen) BLOOD SPECIMEN / Unknown 03/27/2019 16:02 EDT 03/27/2019 16:32 EDT us Amber Mendosa DO CHEMISTRY & BLOOD GAS ORDERA BLES Final Result Performing Organization Address [facility] Co de Phone Number [facility] [address] [place] [address] * PTH INTACT (03/27/2019 16:02 EDT) PTH 48 19 - 88 pg/ml 03/28/2019 10:09 [facility] Comment:Reference range base d on normal calcium level. Blood specimen (specimen) BLOOD SPECIMEN / Unknown 03/27/2019 16:02 EDT 03/27/2019 16:32 EDT us Amber Mendosa DO CHEMISTRY & BLOOD GAS ORDERA BLES Final Result Performing Organization Address [facility] de Phone Number [facility] [address] [place] [address] * (ABNORMAL) COMPREHENSIVE METABOLIC PANEL (CMP) (03/27/2019 16:02 EDT) Potassium 4.2 3.5 - 5.0 mEq/L 03/27/2019 17:02 [facility] Sodium 128(L) 136 - 145 mEq/L 03/27/2019 17:02 [facility] Chloride 91(L) 96 - 110 mEq/L 03/27/2019 17:02 [facility] CO2 28 22 - 32 mEq/L 03/27/2019 17:02 [facility] Total Alkaline Phosphatase 87 38 - 126 U/L 03/27/2019 17:02 [facility] Bilirubin, Total <0.5 <1.4 mg/dl 03/27/20 19 17:02 [facility] AST 22 15 - 46 U/L 03/27/2019 17:02 [facility] ALT 24 <53 U/L 03/27/2019 17:02 [facility] Albumin 4.7 3.4 - 4.9 g/dl 03/27/2019 17:02 [facility] Total Protein 7.0 6.3 - 8.2 g/dl 03/27/2019 17:02 [facility] Creatinine 0.59 0.52 - 1.04 mg/dl 03/27/2019 17:02 [facility] GFR, Calculated 100 >60 ml/min/1.7 3m2 03/27/2019 17:02 [facility] Comment: eGFR calculated using CKD-EPI equation for non Americans. Multiply eGFR by 1.16 for Americans. BUN 11 10 - 26 mg/dl 03/27/2019 17:02 [facility] Calcium 9.7 8.5 - 10.5 mg/dl 03/27/2019 17:02 [facility] Calculated Calcium 9.1 8.5 - 10.5 mg/dl 03/27/2019 17:02 [facility] Glucose, Serum 96 70 - 100 mg/dl 03/27/2019 17:02 [facility] Fasting? No 03/27/2019 15:59 [facility] Blood specimen (specimen) BLOOD SPECIMEN / Unknown 03/27/2019 16:02 EDT 03/27/2019 16:32 EDT us Amber Mendosa DO CHEMISTRY & BLOOD GAS ORDERA BLES Final Result [facility] [address] [place] [address] documented in this encounter Visit Diagnoses Diagnosis Other osteoporosis without current pathological fracture- Primary documented in this encounter Discontinued Medications Medication Sig Discontinue Reason Start Date End Da te lamoTRIgine (LAMICTAL) 100 mg tablet Take 100 mg by mouth 2 times daily. Therapy completed 03/27/2019 documented as of this encounter Care Teams Script Manager Relationship Specialty Start Date End Date Aria Thompson MD PCP - General 12/03/17 06/26/24 documented as of this encounter
--- OUTSIDE RECORDS SUMMARY | 2024-09-05 16:49 | XMS_ITS | Encounter Summary ---
Author Organization [facility] Address [address] [place] [address] Care Team Providers Care Wall Crane Operator Name Role Phone Aria Thompson MD Primary Care Provider Reason for Visit * Reason Onset Date Comments Appointment Related 05/27/2019 Encounter Details Date Type Department Care Team (Late st Contact Info) Description 05/27/2019 Telephone [facility] Speech & Language [address] [place] [address] Macie Goodson, ROBE [address] [place] [address] Appointment Related Social History Tobacco [...] left my direct line. Chantelle Steinberg Therapy Contact Center Director documented in this encounter Plan of Treatment Not on file documented as of this encounter Visit Diagnoses Not on filedocumented in this encounter Care Teams Wall Crane Operator Relationship Specialty Start Date End Date Aria Thompson MD PCP - General 12/03/17 06/26/24 documented as of this encounter
--- OUTSIDE RECORDS SUMMARY | 2024-09-05 16:49 | XMS_ITS | Encounter Summary ---
Author Organization [facility] Address [address] [place] [address] Care Team Providers Care Bridge Operator Name Role Phone Aria Thompson MD Primary Care Provider Reason for Visit * Reason Onset Date Comments Appointment Related 11/25/2018 Encounter Details Date Type Department Care Team (Late st Contact Info) Description 11/25/2018 Telephone [facility] Neurology - [place] [address] [place] [address] Marleny Quezada MD [address] [place] [address] Appointment Related Social History Tobacco [...] Summer Bland - 11/25/2018 1116 EDT Contacted [facility] and they are contacting pt to [...] on filedocumented in this encounter Care Teams Bridge Operator Relationship Specialty Start Date End Date Aria Thompson MD PCP - General 12/03/17 06/26/24 documented as of this encounter
--- OUTSIDE RECORDS SUMMARY | 2024-09-05 16:49 | XMS_ITS | Encounter Summary ---
Author Organization [facility] Address [address] [place] [address] Care Team Providers Care Oil Field Laborer Name Role Phone Aria Thompson MD Primary Care Provider Rosi Ordoñez MD Primary Care Provider [phone] Encounter Details Date Type Department Care Team (Late st Contact Info) Description 08/08/2022 Lab Requisition [facility] Pathology & Laboratory Medicine - [address] [address] Everette Varma MD [address] [place] [address] Rash and other nonspecific skin eruption Social [...] explore management options, if applicable. 08/09/2022 11:08 [facility] Final Diagnosis A. SKIN OF BACK, MID, PUNCH BIOPSY: - Superficial perivascular dermatitis with eosinophils and foci of ulceration. See microscopic and comment. 08/09/2022 11:08 [facility] Diagnosis Comment The biopsy shows evidence of excoriation. Within the dermis is an underlying inflammatory infiltrate which includes lymphomononuclear cells and eosinophils. Also present within the epidermis is focal acantholysis which may be secondary to the excoriation, but also raises transient acantholytic dermatosis (Coburn's disease) as a consideration. A drug-related eruption can not entirely be excluded. There is no evidence of granulomatous inflammation. 08/09/2022 11:08 [facility] Attestation By the signature below, the attending physician certifies that they have 1) personally conducted a gross and/or microscopic examination of the described specimen(s), and/or personally interpreted the results of laboratory testing of the described specimen(s), and 2) personally rendered or confirmed the above diagnosis. 08/09/2022 11:08 [facility] at 1108 Microscopic Description Sections consist of a punch biopsy of skin. There is epidermal ulceration with serum crust. The intact epidermis is relatively unremarkable although foci of acantholysis are noted. Within the dermis is a superficial perivascular lymphomononuclear infiltrate with rare eosinophils. 08/09/2022 11:08 [facility] Clinical History Skin rash in the setting of ulcerative colitis; drug rash vs. dermatologic manifestations of IBD; clinical diagnosis code: R21 08/09/2022 11:08 [facility] Gross Description A. Received in formalin labelled with proper patient identification (initials B, E) and punch biopsy skin of mid back with maculopapular rash is a mottled corea-white and corea skin punch biopsy measuring 0.6 x 0.4 cm and excised to a depth of 0.4 cm. Bisected and submitted entirely in A1. KATE WELLER(ASCP) 08/08/2022 19:10 08/09/2022 11:08 [facility] Performing Lab [facility] 08/09/2022 11:08 [facility] Scanned Images 08/09/2022 11:08 [facility] Tissue TISSUE SPECIMEN FROM SKIN / Unknown 08/07/2022 13:00 EST 08/08/2022 17:22 EST us Everette Varma MD PATHOLOGY ORDERABLES F inal Result [facility] [address] [place] [address] documented in this encounter Visit Diagnoses Diagnosis Rash and other nonspecific skin eruption documented in this encounter Care Teams Oil Field Laborer Relationship Specialty Start Date End Date Aria Thompson MD PCP - General 12/03/17 06/26/24 Rosi Ordoñez MD [address] [place] [phone] PCP - General Family Medicine - Primary Care 06/27/24 documented as of this encounter
--- OUTSIDE RECORDS SUMMARY | 2024-09-05 16:49 | XMS_ITS | Referral Summary ---
Author Organization [facility] Address [address] [place] [address] Care Team Providers Care Manager Therapy Name Role Phone Rosi Ordoñez MD Primary Care Provider [phone] Encounters Date Type Department Care Team Description 09/05/2024 Lab Requisition [facility] Pathology & Laboratory [address] [address] Outr Resulting Lab, Provider 09/05/2024 Lab Requisition [facility] Pathology & Laboratory [address] [address] Outr Resulting Lab, Provider 07/16/2024 Lab Requisition [facility] Pathology Laboratory [address] [address] Fazal Tee MD Nontoxic multinodular goiter from Last 3 Months Allergies Active Allergy Reactions Criticality Noted Date [...] migh t be different from the original. [facility] Neuropsychology Program [place] scanned to PRISM [...] Index 28.17 06/30/2021 0908 EDT Functional Status * Because of a physical, mental, or emotional condition, does this person have difficulty doing errands alone such as visiting a doctor's office or shopping? Answer Date of Assessment Author Yes 02/18/2018 9:55 EDT Mental Status * Because of a physical, mental, or emotional condition, does this person have serious difficulty concentrating, remembering, or making decisions? Answer Entry Date Author Yes 02/18/2018 9:55 EDT Plan of Treatment Not on file Procedures Procedure Name Priority Date/Time Associated Diagnosis Comments NON PLASTICATOR/FNA CYTOLOGY Today 07/15/2024 12:20 EST Nontoxic multinodular goiter US OUTSIDE IMAGES THYROID Routine 06/24/2024 12:52 EDT HEPATITIS C AB W REFLEX TO HCV RNA BY PCR Today 08/31/2023 10:21 EST from Last 3 Months or Most Recently Relevant to Health Maintenance Results * NON PLASTICATOR/FNA CYTOLOGY (07/15/2024 12:20 EST) Ancillary Studies Addendum This addendum report is issued to provide the Afirma Gene Sequencing Sexer results. Please see the attached documentation. 07/29/2024 16:00 [facility] Addendum electronically signed by Jony Cr MD on 07/29/2024 at 1600 Note to Patient The following pathology results have been interpreted by your pathologist and may be available to you before your health provider has had the opportunity to review them. Please allow time for your provider to receive these results and explore management options, if applicable. 07/29/2024 16:00 [facility] Final Diagnosis A. THYROID, LEFT, ULTRASOUND-GUIDED FINE-NEEDLE ASPIRATION: - Atypia of undetermined significance (AUS). - See comment 07/29/2024 16:00 [facility] Diagnosis Comment Stained aspirate smear [...] the specimen processing was performed at the [facility] Pathology Department, [address] [place] [address] (CLIA [id number]). The professional component of the specimen evaluation (slide review and issuing of the final diagnosis) was performed at [facility], [address] [place] [address] (CLIA License Number [id number]). 07/29/2024 16:00 [facility] Attestation By the signature below, the attending physician certifies that they have personally conducted a gross and/or microscopic examination of the described specimens and rendered or confirmed the above diagnosis. 07/29/2024 16:00 [facility] at 1152 Rapid Diagnosis A. THYROID NODULE (2.8 CM), LEFT, ULTRASOUND GUIDED FINE NEEDLE ASPIRATION: Evaluation Episode 1: Pass 1-2: Adequate follicular cells; abundant siderophage's. Afirma collected.( 2 dedicated passes). The above rapid on site evaluation was performed by pathologist Dr. Areli Garcia at [facility], [address] [place] [address]. 07/15/24; 1220 07/29/2024 16:00 [facility] Clinical History 2.8cm left thyroid nodule. E04.2 07/29/2024 16:00 [facility] Gross Description A. 3 fixed prepared slides, 4 air dried prepared slides, and 1 tube of CytoLyt were received and processed by selective cellular enhancement technique. 1 FNAprotect tube for possible Afirma testing was also received and will be held for 60 days from date of collection. 07/29/2024 16:00 [facility] Performing Lab [facility] 16:00 [facility] Scanned Images 07/29/2024 16:00 [facility] Fine Needle Aspirate STRUCTURE OF LEFT LOBE OF THYROID GLAND / Unknown 07/15/2024 12:20 EST 07/16/2024 6:10 EST us Fazal Tee MD PATHOLOGY ORDERABLES Edited Resu lt - Final [facility] [address] [place], [place] [id number] [facility] [address] [place], [place] [address] * US OUTSIDE IMAGES THYROID (06/24/2024 12:52 EDT) Narrative 06/27/2024 12:52 EDT This is a non-reportable exam. us External Imaging IMG OTHER IMAGING ORDERABLES Fi nal Result * HEPATITIS C AB W REFLEX TO HCV RNA BY PCR (08/31/2023 10:21 EST) Hep C Antibody Negative Negative 08/31/2023 19:48 EST [facility] Blood VENOUS BLOOD / Unknown 08/31/2023 10:21 EST 08/31/2023 17:44 EST us Provider Outr Resulting Lab CHEMISTRY & BLOOD GA S ORDERABLES Final Result [facility] [address] [place] [address] from Last 3 Months or Most Recently Relevant to Health Maintenance Insurance MEDICARE [facility] Care Teams Manager Therapy Relationship Specialty Start Date End Date Rosi Ordoñez MD [address] [place] [address] PCP - General Family Medicine - Primary Care 06/27/24
--- OUTSIDE RECORDS SUMMARY | 2024-09-05 16:49 | XMS_ITS | Encounter Summary ---
Author Organization [facility] Address [address] [place] [address] Care Team Providers Care Pediatric Oncologist Name Role Phone Aria Thompson MD Primary Care Provider Reason for Visit * Reason Onset Date Comments Appointment Related 10/15/2019 Encounter Details Date Type Department Care Team (Late st Contact Info) Description 10/15/2019 Telephone [facility] Endocrinology - [address] [address] Reno Lux RN Appointment Related Social History [...] on filedocumented in this encounter Care Teams Pediatric Oncologist Relationship Specialty Start Date End Date Aria Thompson MD PCP - General 12/03/17 06/26/24 documented as of this encounter
--- OUTSIDE RECORDS SUMMARY | 2024-09-05 16:49 | XMS_ITS | Encounter Summary ---
Author Organization [facility] Address [address] [place] [address] Care Team Providers Care Army Manager Name Role Phone Aria Thompson MD Primary Care Provider Rosi Ordoñez MD Primary Care Provider [phone] Encounter Details Date Type Department Care Team (Late st Contact Info) Description 08/31/2023 Lab Requisition [facility] Pathology & Laboratory Medicine - [address] [address] Outr Resulting Lab, Provider Social History Tobacco [...] 10:21 EST) Hold Hold 08/31/2023 18:46 EST [facility] Blood VENOUS BLOOD / Unknown 08/31/2023 10:21 EST 08/31/2023 17:44 EST us Provider Outr Resulting Lab LAB INFO SERVICE AND SUPPORT & PHONE RESULT Final Result [facility] [address] [place] [address] * SPEP, INCLUDES QUANTITATION OF MONOCLONAL SPIKE PERFORMABLE (08/31/2023 10:21 EST) Albumin % 65.9 55.8 - 66.1 % 09/03/2023 13:08 [facility] Albumin g/dL 4.2 3.6 - 5.2 g/dL 09/03/2023 13:08 [facility] Alpha-1 % 3.7 2.9 - 4.9 % 09/03/2023 13:08 [facility] Alpha-1 g/dL 0.20 0.15 - 0.40 g/dL 09/03/2023 13:08 [facility] Alpha-2 % 8.9 7.1 - 11.8 % 09/03/2023 13:08 [facility] Alpha-2 g/dL 0.60 0.50 - 1.00 g/dL 09/03/2023 13:08 [facility] Beta % 9.4 8.4 - 13.1 % 09/03/2023 13:08 [facility] Beta g/dL 0.60 0.60 - 1.20 g/dL 09/03/2023 13:08 [facility] Gamma % 12.1 11.1 - 18.8 % 09/03/2023 13:08 [facility] Gamma g/dL 0.80 0.60 - 1.60 g/dL 09/03/2023 13:08 [facility] SPEP Comment No apparent monoclonal protein seen on serum electrophoresis 09/03/2023 13:08 [facility] Comment:See scanned/suppleme ntary report. Total Protein 6.4 6.3 - 8.2 g/dL 09/03/2023 13:08 [facility] Blood VENOUS BLOOD / Unknown 08/31/2023 10:21 EST 08/31/2023 17:44 EST us Provider Outr Resulting Lab CHEMISTRY & BLOOD GA S ORDERABLES Final Result Performing Organization Address [facility]/ZIP Co de Phone Number [facility] [address] [place] [address] * PROTEIN, TOTAL (08/31/2023 10:21 EST) Blood VENOUS BLOOD / Unknown 08/31/2023 10:21 EST 08/31/2023 17:44 EST us Provider Outr Resulting Lab CHEMISTRY & BLOOD GA S ORDERABLES Final Result Performing Organization Address City/[facility]/ZIP Co de Phone Number [facility] [address] [place] [address] * IGG (08/31/2023 10:21 EST) IgG 746 610 - 1,616 mg/dL 09/03/2023 8:49 EST [facility] Blood VENOUS BLOOD / Unknown 08/31/2023 10:21 EST 08/31/2023 17:44 EST us Provider Outr Resulting Lab CHEMISTRY & BLOOD GA S ORDERABLES Final Result [facility] [address] [place] [address] documented in this encounter Visit Diagnoses Not on filedocumented in this encounter Care Teams Army Manager Relationship Specialty Start Date End Date Aria Thompson MD PCP - General 12/03/17 06/26/24 Rosi Ordoñez MD [address] [place] [id number] PCP - General Family Medicine - Primary Care 06/27/24 documented as of this encounter
--- OUTSIDE RECORDS SUMMARY | 2024-09-05 16:49 | XMS_ITS | Encounter Summary ---
Author Organization [facility] Address [address] [place] [address] Care Team Providers Care Crook Operator Name Role Phone Aria Thompson MD Primary Care Provider Reason for Referral * PT/OT/ST (Routine) - Closed Specialty Diagnoses / Procedures Referred By Merari rosario Referred To Contact Speech & Language Pathology Diagnoses Memory loss Word finding difficulty Marleny Quezada MD Phone: tel: fax: [facility] Speech & Language [address] [place] [address] Phone: tel: fax: Referral ID Status Reason Start Date Expiration Date V isits Requested Visits Authorized [id number] Closed Specialty Services Required 05/26/2019 1 1 Question Answer Reason for Request: language difficulties possibly impacting work environment Type of ASSEMBLER WET WASH Eval: Communication-Cognitive Eval & Treat, Speech-Language Eval & Treat * PT/OT/ST (Routine) - Closed Specialty Diagnoses / Procedures Referred By Merari rosario Referred To Contact Rehab Therapies Diagnoses Memory loss Word finding difficulty Marleny Quezada MD Phone: tel: fax: [facility] Rehabilitation Therapy [facility] [address] [place] [address] Phone: tel: fax: Referral ID Status Reason Start Date Expiration Date V isits Requested Visits Authorized [id number] Closed Specialty Services Required 05/26/2019 1 1 Question Answer Reason for Request: language difficulties possibly impacting work environment Reason for Visit * Reason Comments Follow-up Encounter Details Date Type Department Care Team (Late st Contact Info) Description 05/26/2019 9:30 EDT Office Visit [facility] Neurology [facility] [address] [place] [address] Marleny Quezada MD [address] [place] [address] Seizures (HCC-CMS) (Primary Dx); Memory [...] MD, MD - 05/26/2019 0930 EDT [facility] NEUROLOGY ?? FOLLOW UP - 05/26/2019 ? [...] difficulty. IMAGING: Bone density scan 09/17/2018 at [facility]: osteoporosis of lumbar spine and osteopenia of left hip. MRI Brain 08/09/2017 with non specific white matter changes. EMG: April 2018- The electrodiagnostic study was normal today which is reassuring. There is no need for further neurological investigations unless there is change in symptoms. EEG: April 2018, 72 hour ambulatory and baseline studies at [facility] Impression: Abnormal ambulatory monitoring study with [...] this time. I did refer her for ASSEMBLER WET WASH/OT as per the suggestions of her evaluation. [...] this encounter Visit Diagnoses Diagnosis Seizures ([facility]-CMS)- Primary Other convulsions Memory loss Word finding difficulty Problems with communication (including speech) On antiepileptic therapy documented in this encounter Care Teams Crook Operator Relationship Specialty Start Date End Date Aria Thompson MD PCP - General 12/03/17 06/26/24 documented as of this encounter
--- OUTSIDE RECORDS SUMMARY | 2024-09-05 16:49 | XMS_ITS | Encounter Summary ---
Author Organization [facility] Address [address] [place] [address] Care Team Providers Care Hot Bread Baker Name Role Phone Aria Thompson MD Primary Care Provider Encounter Details Date Type Department Care Team (Late st Contact Info) Description 03/27/2019 Results Only Imaging [facility] [phone] Unknown, Provider, Social History Tobacco Use Types [...] filedocumented in this encounter Care Teams Hot Bread Baker Relationship Specialty Start Date End Date Aria Thompson MD PCP - General 12/03/17 06/26/24 documented as of this encounter
--- OUTSIDE RECORDS SUMMARY | 2024-09-05 16:50 | XMS_ITS | Encounter Summary ---
Author Organization [facility] Address [address] [place] [address] Care Team Providers Care Notched Blade Loader Name Role Phone Aria Thompson MD Primary Care Provider Reason for Visit * Reason Onset Date Comments Appointment Related 02/28/2018 Encounter Details Date Type Department Care Team (Late st Contact Info) Description 02/28/2018 Telephone [facility] Neurophysiology - [facility] ([address] [address]) [address], [place] [phone] Cnl, Eeg Schedule, Appointment Related Social History [...] Perkins - 02/28/2018 1002 EDT Lois from [facility] called stating that the EEG Standard scheduled 03/21/18 was sent as a 72 hour ambulatory EEG. documented in this encounter Plan of Treatment Not on file documented as of this encounter Visit Diagnoses Not on filedocumented in this encounter Care Teams Notched Blade Loader Relationship Specialty Start Date End Date Aria Thompson MD PCP - General 12/03/17 06/26/24 documented as of this encounter
--- OUTSIDE RECORDS SUMMARY | 2024-09-05 16:50 | XMS_ITS | Clinical Summary ---
Author Organization [facility] Address [facility] [place] [address] Care Team Providers Care Yarrow Gatherer Name Role Phone Rosi Ordoñez MD Primary Care Provider [phone] Allergies Active Allergy Reactions Criticality Noted Date [...] from the original. Receives Remicade infusions at [facility] Problem Noted Date Diagnosed Date Age related osteoporosis 08/14/2022 Seizure disorder 08/14/2022 Ulcerative colitis 08/09/2022 Nontoxic single thyroid nodule Encounters Date Type Department Care Team Description 07/30/2024 9:30 AM EST Office [place] [address] Janice Villarreal MD Ulcerative pancolitis without complication (Primary Dx); Transaminitis 07/30/2024 Travel from Last 3 Months Immunizations Name Administration Dates Next Due Covid-19 Bivalent (Pfizer Comirnaty) 12yrs+ (-2022) 09/05/2022 Social History Tobacco Use Types Packs/Day [...] EST Inhaled Oxygen Concentration - - Weight 71.1 kg (156 lb 11.2 oz) 07/30/2024 9:06 AM EST Height 157.5 cm (5' 2) 03/12/2024 8:35 AM EDT Body Mass Index 28.66 03/12/2024 8:35 AM EDT Plan of Treatment Health Maintenance Due Date Last Done Comments CT Colonography 1960 FIT DNA 1960 FIT 1960 Sigmoidoscopy 1960 Tetanus/Diphtheria/Pertussis Vaccines (1 - Tdap) 1977 HPV test 1988 PAP Smear 1988 Breast Cancer Share Decision Needed 1998 Breast Cancer screening 1998 Pneumoccocal Vaccine: 65+ (1 of 1 - PCV) 2008 Zoster vaccine (1 of 2) 2008 Advance Directive 2013 Bone Density Scan 11/02/2023 Covid-19 Vaccine (2 - 2023-2 5 season) 2024 09/05/2022 Influenza (Flu) vaccine (1 o f 1 - Influenza standard series) 04/27/2024 Colonoscopy 10/09/2025 10/09/2023, 10/09/2023 Colorectal Cancer Screening 10/09/2025 Diabetes Screening (HgbA1C o r Glucose) 03/12/2027 03/12/2024, 01/17/2024, 12/26/2023, Additional history exists Sigmoidoscopy (10 year) with FIT yearly 10/09/2033 10/09/2023, 10/09/2023 HIV screen Completed 12/26/2023 Hepatitis C Screening Completed 12/26/2023 Procedures Procedure Name Priority Date/Time Associated Diagnosis Comments LAB SCAN 07/09/2024 12:00 AM EST COMPREHENSIVE METABOLIC PANEL Routine 03/12/2024 9:32 AM EDT Transaminitis HIV SCREEN, 4TH GENERATION ([facility]/CGP/APD/NL) Routine 12/26/2023 2:08 PM EDT Transaminitis HEPATITIS C ANTIBODY Routine 12/26/2023 2:08 PM EDT Transaminitis COLONOSCOPY Routine 10/09/2023 9:59 AM EST from Last 3 Months or Most Recently Relevant to Health Maintenance Results * Scan Doc: Lab (07/09/2024 12:00 AM EST) Narrative 07/09/2024 12:00 AM EST Ordered by an unspecified provider. Scanning Provider MEDIA MGR SCAN EXT O RDR/RSLT * (ABNORMAL) Comprehensive metabolic panel (non-fasting) (03/12/2024 9:32 AM EDT) Glucose 94 65 - 199 mg/dL [facility] Comment:Diabetes: >=200 mg/d L plus symptoms Blood Urea Nitrogen 13 8 - 18 mg/dL [facility] Creatinine 0.58(L) 0.70 - 1.20 mg/dL [facility] Sodium 135 135 - 145 mmol/L [facility] Potassium 4.5 3.5 - 5.0 mmol/L [facility] Comment: Please note: ??Patients with WBC >100,000 may have falsely elevated Potassium levels. ??For accurate Potassium quantification in these patients send serum separator tube (gold top) for subsequent determinations. ??Contact the Clinical Chemistry Laboratory if there are any questions. Chloride 97(L) 98 - 107 mmol/L [facility] Carbon Dioxide 26 22 - 31 mmol/L [facility] Anion Gap 12 5 - 15 mmol/L [facility] Calcium 9.5 8.5 - 10.5 mg/dL [facility] Protein, Total 6.9 6.1 - 8.0 g/dL [facility] Albumin 4.6 3.2 - 5.2 g/dL [facility] Aspartate Aminotransferase 20 0 - 30 unit/L [facility] Alanine Aminotransferase 28 0 - 30 unit/L [facility] Alkaline Phosphatase 88 35 - 105 unit/L [facility] Bilirubin, Total 0.3 0.2 - 1.3 mg/dL [facility] Est Glomerular Filtration Rate 100 >=60 mL/min/1. 73 m?? [facility] [...] Villarreal MD CHEMISTRY ORDERABLES Performing Organization Address City/[facility]/ZIP Co de Phone Number [facility] [place] [address] * Hepatitis C Antibody (12/26/2023 2:08 PM EDT) Hepatitis C Antibody Negative Negative [facility] Blood 12/26/2023 2:08 PM EDT 12/26/2023 2:27 PM EDT Narrative Resulting Agency Comment Spec In Lab Janice Villarreal MD CHEMISTRY ORDERABLES Performing Organization Address [facility] Co de Phone Number [facility] [place] [address] * HIV Screen, 4th Generation ([facility] [place]/CGP/APD/NLH) (12/26/2023 2:08 PM EDT) Pathologist [facility] HIV Ab/Ag Screen Negative Negative [facility] Comment: [...] Villarreal MD CHEMISTRY ORDERABLES Performing Organization Address [facility]/ZIP Co de Phone Number [facility] [place] [address] * COLONOSCOPY (10/09/2023 9:59 AM EST) COLONOSCOPY [facility] Endoscopy Procedure Date: 10/09/2023 9:59 AM ? Patient Name: Elsa Lujan ? Date of : 1960 ? Age: 62 ? Order #: [id number] ? Instrument Name: [id number] ? Procedure: ? Colonoscopy Indications: ? Pt [...] preparation was evaluated ? using the BBPS ([place] Bowel ? Preparation Scale) with scores of: [...] Status decision made by: Patient Care Teams Yarrow Gatherer Relationship Specialty Start Date End Date Rosi Ordoñez MD [address] [place], [place] [id number] PCP - General Family Medicine 08/05/24
--- OUTSIDE RECORDS SUMMARY | 2024-09-05 16:50 | XMS_ITS | Encounter Summary ---
Author Organization [facility] Address [address] [place] [address] Care Team Providers Care Fire Pilot Name Role Phone Unavailable Primary Care Provider Unavailabl e Encounter Details Date Type Department Care Team (Latest Contact Info) Description 04/13/2006 8:59 EDT - 04/13/2006 11:59 EDT Hospital Encounter [facility] [address] [place] [address] Michel Balderrama MD Discharge Disposition: Auto Discharge Social History Tobacco Use Types Packs/Day Years Used Date Smoking Tobacco: Never Assessed Comments Unknown Sex and Gender Information Value [...] LAB HCT 33.3(L) 34.9 - 44.4 % [facility] MCV 94 81 - 98 fl [facility] MCH 32.4 26.7 - 33.3 pg [facility] MCHC 34.6 32.1 - 35.9 gm/dl [facility] PLT 330(H) 141 - 320 K/cmm [facility] RDW-CV 14.7(H) 11.7 - 14.6 % [facility] 03/10/2009 14:0 0 EDT 03/10/2009 20:02 EDT us Pavan Zurita MD HEMATOLOGY & PF4 ORDERABLES Kourtney morfin Result Performing Organization Address City/State/[facility] Co de Phone Number [facility] [address] [place] [address] * L SPINE 2-3 VIEWS (04/13/2006 10:00 [...] L5 over S1. /shruthi Michel Balderrama MD IM DIAGNOSTIC IMAGING JOHANNY GUERRA Final Result documented in this encounter Visit Diagnoses Not on filedocumented in this encounter
--- OUTSIDE RECORDS SUMMARY | 2024-09-05 16:50 | XMS_ITS | Encounter Summary ---
Author Organization [facility] Address [address] [place] [address] Care Team Providers Care Regulatory Lead Name Role Phone Aria Thompson MD Primary Care Provider Reason for Visit * Reason Onset Date Comments Appointment Related 01/14/2018 Encounter Details Date Type Department Care Team (Late st Contact Info) Description 01/14/2018 Telephone Vascular Surgery and Endovascular Therapy - [address] [phone] Everette Boggs MD [address] [facility], [address] [place] [address] Appointment Related Social History Tobacco Use Types Packs/Day Years Used Date Smoking Tobacco: Former Cigarettes Smokeless Tobacco: Never Comments Unknown Sex and [...] or shopping? Answer Date of Assessment Author No 12/03/2017 9:40 EDT documented as of this encounter Mental Status * Because of a physical, mental, or emotional condition, does this person have serious difficulty concentrating, remembering, or making decisions? Answer Entry Date Author No 12/03/2017 9:40 EDT documented in this encounter Miscellaneous Notes [...] on filedocumented in this encounter Care Teams Regulatory Lead Relationship Specialty Start Date End Date Aria Thompson MD PCP - General 12/03/17 06/26/24 documented as of this encounter
--- OUTSIDE RECORDS SUMMARY | 2024-09-05 16:50 | XMS_ITS | Encounter Summary ---
Author Organization [facility] Address [address] [place] [address] Care Team Providers Care Uniform Patrol Police Officer Name Role Phone Aria Thompson MD Primary Care Provider Reason for Visit * Reason Onset Date Comments Appointment Related 04/17/2018 Encounter Details Date Type Department Care Team (Late st Contact Info) Description 04/17/2018 Telephone [facility] Neurophysiology - [facility] ([address]) [address] [place], [place] [phone] MD Renzo Appointment Related Social History Tobacco [...] - Cleo Corea - 04/17/2018 1009 EDT [facility] reminder of appointment 04/19/18, directions provided. documented in this encounter Plan of Treatment Not on file documented as of this encounter Visit Diagnoses Not on filedocumented in this encounter Care Teams Uniform Patrol Police Officer Relationship Specialty Start Date End Date Aria Thompson MD PCP - General 12/03/17 06/26/24 documented as of this encounter
--- OUTSIDE RECORDS SUMMARY | 2024-09-05 16:50 | XMS_ITS | Encounter Summary ---
[place] [address] Care Team Providers Care Safety Counselor Name Role Phone Pradeep Gallardo APRN Primary Care Provider Encounter Details Date Type Department Care Team (Latest Contact Info) Description 07/30/2024 Travel Social History Tobacco Use Types Packs/Day [...] on filedocumented in this encounter Care Teams Safety Counselor Relationship Specialty Start Date End Date Pradeep Gallardo APRN PCP - General 07/19/10 08/04/24 documented as of this encounter
--- OUTSIDE RECORDS SUMMARY | 2024-09-05 16:50 | XMS_ITS | Encounter Summary ---
[facility] [place] [address] Care Team Providers Care Brick Kiln Burner Name Role Phone Pradeep Gallardo APRN Primary Care Provider Reason for Visit * Reason Onset Date Comments Bumped Appointment 04/03/2024 Encounter Details Date Type Department Care Team (Late st Contact Info) Description 04/03/2024 Telephone [place] [phone] Kimmy Webster Bumped Appointment Social History Tobacco Use Types Packs/Day Years [...] encounter Miscellaneous Notes * Telephone Encounter - Kimmy Webster - 04/03/2024 11:41 AM EDT Called and LVM, also sent a Jocoos message to patient for rescheduling bumped appt originally scheduled for 06/25/[address] Villarreal. Please reschedule from cancelled appt. documented in this encounter Plan of Treatment Not on file documented as of this encounter Visit Diagnoses Not on filedocumented in this encounter Care Teams Brick Kiln Burner Relationship Specialty Start Date End Date Pradeep Gallardo APRN PCP - General 07/19/10 08/04/24 documented as of this encounter
--- OUTSIDE RECORDS SUMMARY | 2024-09-05 16:50 | XMS_ITS | Encounter Summary ---
Author Organization [facility] Address [address] [place] [address] Care Team Providers Care Public Services Assistant Name Role Phone Aria Thompson MD Primary Care Provider Reason for Visit * Office Procedure (Routine) - Specialty Report Received Specialty Diagnoses / Procedures Referred By Merari rosario Referred To Contact Neurology Diagnoses Right arm pain Procedures ELECTRODIAGNOTICS: EMG/NERVE CONDUCTION STUDY Marleny Quezada MD Phone: tel: fax: [facility] Neurophysiology [facility] ([address] [address]) [address] [place] [address] Phone: tel: fax: Referral ID Status Reason Start Date Expiration Date V isits Requested Visits Authorized [id number] Specialty Report Received 01/28/2018 1 1 Encounter Details Date Type Department Care Team (Latest Contact Info) Description 05/24/2018 8:03 EDT - 05/24/2018 23:59 EDT Hospital Encounter [facility] Neurophysiology [facility] ([facility] [address]) [address], [place] [address] Shilo Serra MD [address] [place] [address], [address] [place] [address] Seizures ([facility]) Discharge Disposition: Auto Discharge Social History Tobacco [...] documented in this encounter Discharge Diagnoses Diagnosis R56.9 Unspecified convulsions-R56.9[ICD-10-CM] documented in this encounter Medications at Time of Discharge cholecalciferol, vitamin D3, (VITAMIN D3 ORAL) Take 2,000 Tabs by mouth daily. lamoTRIgine (LAMICTAL) 100 mg tablet Take 100 mg by mouth 2 times daily. 9 mesalamine (CANASA) 1,000 mg suppository INSERT ONE SUPPOSITORY RECTALLY ONCE OR TWICE A DAY 02/04/2018 1 OXcarbazepine (TRILEPTAL) 300 mg tablet Take 300 mg by mouth 4 times daily. 8 documented as of this encounter Discharge Disposition Disposition Code Departure Means Destination Auto Discharge Home documented in this encounter Procedure Notes * Idris Hdez MD PhD - 05/24/2018 8398 EDTProcedure(s): AMBULATORY EEG- TRANSCRIBED ORDER [facility] Name: Elsa Lujan Clinical Neurophysiology Laboratory [address] [place] [address] : 1960 [place], [place] Date: 05/24/2018 Ambulatory Digital EEG Monitoring [...] Idris Hdez MD PHD ABPN Certified, Neurology [facility] Clinical Neurophysiology * Idris Hdez MD PhD - 05/24/2018 1601 EDTProcedure(s): AMBULATORY EEG- TRANSCRIBED ORDER [facility] Name: Elsa Lujan Clinical Neurophysiology Laboratory [address] [facility] : 1960 [place], [place] Date: 05/24/2018 Ambulatory Digital EEG Monitoring [...] at 10:50 of April, and ends at 10:49 of April,. 2. The parents submit(s) an activity [...] * Idris Hdez MD PhD - 05/24/2018 8462 EDTProcedure(s): AMBULATORY EEG- TRANSCRIBED ORDER [facility] Name: Elsa Lujan Clinical Neurophysiology Laboratory [address] [place] [address] : 1960 [place], [place] Date: 05/24/2018 Ambulatory Digital EEG Monitoring [...] ABPN Certified, Neurology ABCN Clinical Neurophysiology * Rodrick Muse MD - 05/24/2018 1450 EDT Images from the original note were not included. [facility] Name: Elsa Lujan Clinical Neurophysiology Laboratory [address] : 1960 [place], [place] Date: 05/24/2018 Electroencephalogram Report Referring Physician: [...] specifically support this diagnosis. Rodrick Muse MD [facility] Certified, Neurology and Clinical Neurophysiology 14:50 05/24/2018 * Shilo Serra MD - 05/24/2018 1301 EDTProcedure(s): EMG/NERVE CONDUCTION STUDY Nerve Conduction and Electromyography Report History: Elsa Lujan is a 57 y.o. female who presents to EMG for evaluation of right arm pain. She reports that on September 27 2016, she had fallen at a gas station called [employer]. She slipped on a pile of water [...] any questions. Yours sincerely, Sandy Cee MD [facility] Neuromuscular fellow physician Attestation statement: I personally reviewed the tracings/ data and the reviewed the resident/ fellow's interpretation and agree with the findings. I also saw and examined the patient with the resident/fellow. I agree with the findings and plan ofcare documented in the resident's/fellow's note. Shilo Serra M.D. Tinning Equipment Tender of Neurology ABPN Board Certified, Neurology ABEM Board Certified, EMG documented in this encounter Plan of Treatment Not on file documented as of this encounter Procedures Procedure Name Priority Date/Time Associated Diagnosis Comments ELECTROMYOGRAM - SCANNED 05/29/2018 8:54 EDT documented in this encounter Results * ELECTROMYOGRAM - SCANNED (05/29/2018 8:54 EDT) 05/29/2018 8:54 EDT us Scan 2 Consulting Senior Practice Director PROCEDURE/MINOR SURGICAL OR DERABLES Final Result documented in this encounter Visit Diagnoses Diagnosis Seizures ([facility]) Other convulsions documented in this encounter Care Teams Public Services Assistant Relationship Specialty Start Date End Date Aria Thompson MD PCP - General 12/03/17 06/26/24 documented as of this encounter
--- OUTSIDE RECORDS SUMMARY | 2024-09-05 16:50 | XMS_ITS | Encounter Summary ---
Author Organization [facility] Address [address] [place] [address] Care Team Providers Care Shrub Grower Name Role Phone Aria Thompson MD Primary Care Provider Reason for Referral * Consult (Routine/Next Available) - Specialty Report Received Specialty Diagnoses / Procedures Referred By Merari rosario Referred To Contact Neurology Diagnoses Seizure disorder ([facility]) Everette Boggs MD Phone: tel: fax: Nahum Hernandez MD Phone: tel: fax: Referral ID Status Reason Start Date Expiration Date Visits Requested Visits Authorized [id number] Specialty Report Received Second Opinion 12/05/2017 1 1 Question Answer Reason for Request: Patient with seizure history and in control of her seizure disorder requesting for second Neurology opinion from [facility]. Patient being worked up by Vascular Surgery for cyanotic finger after obtaining nerve damage to right arm after a fall. Comments Workman's Comp Case - Case #[id number], Injury Date: 09/27/16 Patients' previous Neurologist: Dr. Jameson Burgos in [place], [place]. Patient will call Dr. Burgos's office to have the office release her Neurology consult notes to [facility]. Reason for Visit * Reason Onset Date Comments Referral Request 12/05/2017 Encounter Details Date Type Department Care Team (Late st Contact Info) Description 12/05/2017 Orders Only Vascular Surgery and Endovascular Therapy - [address] [address] Everette Boggs MD [address] [facility], [address] [place] [phone] Seizure disorder ([facility]) (Primary Dx) Social History Tobacco Use Types [...] 12/03/2017 9:40 EDT documented in this encounter Plan of Treatment Scheduled Referrals Name Type Priority Associated Diagnoses Orde r Schedule AMB CONS/FOLLOW UP NEUROLOGY Outpatient Referral Routine Seizure Disorder (CMS-HCC) Ordered: 12/05/2017 documented as of this encounter Visit Diagnoses Diagnosis Seizure disorder ([facility])- Primary Unspecified epilepsy without mention of intractable epilepsy documented in this encounter Care Teams Shrub Grower Relationship Specialty Start Date End Date Aria Thompson MD PCP - General 12/03/17 06/26/24 documented as of this encounter
--- OUTSIDE RECORDS SUMMARY | 2024-09-05 16:50 | XMS_ITS | Encounter Summary ---
Author Organization [facility] [place] [address] Care Team Providers Care Pants Busheler Name Role Phone Paulina Pradeep Sheridan SPIVEY Primary Care Provider [phone] Encounter Details Date Type Department Care Team (Late st Contact Info) Description 12/28/2023 [place] [address] Kim Morse PA [facility] [place] [address] Social History Tobacco Use Types Packs/Day Years [...] medical record. IR History: [facility] [place] [facility] Anticoagulation/Antiplatelet: None listed Labs: Lab Results Component [...] 3.56) performed by James Bobo MD at [facility] ENDOSCOPY Social History and Habits: Social [...] on filedocumented in this encounter Care Teams Pants Busheler Relationship Specialty Start Date End Date Pradeep Gallardo APRN PCP - General 07/19/10 08/04/24 documented as of this encounter
--- OUTSIDE RECORDS SUMMARY | 2024-09-05 16:50 | XMS_ITS | Encounter Summary ---
[place] [address] Care Team Providers Care Draw Fire Operator Name Role Phone Pradeep Gallardo APRN Primary Care Provider [phone] Encounter Details Date Type Department Care Team (Latest Contact Info) Description 01/17/2024 10:10 AM EDT Laboratory Appointment Lab [address] [place] [phone] Ulcerative pancolitis without complication; Transaminitis Social History [...] Procedure Name Priority Date/Time Associated Diagnosis Comments INFLIXIMAB LEVEL Routine 01/17/2024 9:47 AM EDT Ulcerative pancolitis without complication COMPREHENSIVE METABOLIC PANEL Routine 01/17/2024 9:47 AM EDT Transaminitis documented in this encounter Results * (ABNORMAL) Comprehensive metabolic panel (non-fasting) (01/17/2024 9:47 AM EDT) Glucose 107 65 - 199 mg/dL [facility] Comment:Diabetes: >=200 mg/d L plus symptoms Blood Urea Nitrogen 13 8 - 18 mg/dL [facility] Creatinine 0.62(L) 0.70 - 1.20 mg/dL [facility] Sodium 133(L) 135 - 145 mmol/L [facility] Potassium 4.4 3.5 - 5.0 mmol/L [facility] Comment: Please note: ??Patients with WBC >100,000 may have falsely elevated Potassium levels. ??For accurate Potassium quantification in these patients send serum separator tube (gold top) for subsequent determinations. ??Contact the Clinical Chemistry Laboratory if there are any questions. Chloride 97(L) 98 - 107 mmol/L [facility] Carbon Dioxide 27 22 - 31 mmol/L [facility] Anion Gap 9 5 - 15 mmol/L [facility] Calcium 9.3 8.5 - 10.5 mg/dL [facility] Protein, Total 6.8 6.1 - 8.0 g/dL [facility] Albumin 4.5 3.2 - 5.2 g/dL [facility] Aspartate Aminotransferase 33(H) 0 - 30 unit/L [facility] Alanine Aminotransferase 42(H) 0 - 30 unit/L [facility] Alkaline Phosphatase 84 35 - 105 unit/L [facility] Bilirubin, Total 0.3 0.2 - 1.3 mg/dL [facility] Est Glomerular Filtration Rate 99 >=60 mL/min/1. 73 m?? [facility] Comment: This patient's estimated GFR [...] In Lab Janice Villarreal MD CHEMISTRY ORDERABLES [facility] [place] [address] * Infliximab Level (01/17/2024 9:47 AM EDT) Infliximab Level (MAY) Test ? Result ?Flag ??Unit ?RefValue ------- Infliximab QN with Reflex to Ab, S ??Infliximab, S ?8.0 ? mcg/mL ? ---REFERENCE VALUE ?Limit of Quantitation = 1.0 mcg/mL ??Interpretation ? SEE COMMENTS ?For clinical assessment of response to therapy, infliximab ?should be measured at trough. When infliximab trough ?concentrations are greater than 5.0 mcg/mL, clinically ?relevant upajmsozbq-rp-zctl iximab are unlikely and reflex ?testing will not be performed. ? ---ADDITIONAL INFORMATION------- ?This test was developed and its performance characteristics ?determined by [facility] in a manner consistent with CLIA ?requirements. This test has not been cleared or approved by ?the U.S. Food and Drug Administration. ?Test Performed by: ?[facility] ?[address] [place] [address] ?Lead Quality Control Technician: Basil Retana M.D. Ph.D.; CLIA# [id number] [facility] Blood 01/17/2024 9:47 AM EDT 01/17/2024 12:31 PM EDT Narrative Resulting Agency Comment Spec In Lab Janice Villarreal MD LAB SEND OUT ORDERAB LES Performing Organization Address City/State/[facility] Co de Phone Number [facility] [place] [address] documented in this encounter Visit Diagnoses Diagnosis Ulcerative pancolitis without complication Transaminitis Nonspecific elevation of levels of transaminase or lactic acid dehydrogenase (LDH) documented in this encounter Care Teams Draw Fire Operator Relationship Specialty Start Date End Date Pradeep Gallardo APRN PCP - General 07/19/10 08/04/24 documented as of this encounter
--- OUTSIDE RECORDS SUMMARY | 2024-09-05 16:50 | XMS_ITS | Encounter Summary ---
Author Organization [facility] Jose Luis [place] [address] Care Team Providers Care Ice Seller Name Role Phone Paulina Pradeep Swartz APRN Primary Care Provider [phone] Encounter Details Date Type Department Care Team (Late st Contact Info) Description 03/12/2024 8:30 AM EDT Office [place] [address] Janice Villarreal MD [facility] [place] [address] Ulcerative pancolitis without complication (Primary Dx); Transaminitis [...] original note were not included. [facility] Division of Gastroenterology and Hepatology History of Present Illness: Elsa Lujan 63F w/ PMH of extensive colitis following up in GI clinic. Interval Events: -Continuing at low-dose Remicade 5mg/kg due to concerns of 10mg/kg dosing. Remicade due next Sunday at [facility] at [facility] [place] [facility] 12/2023 wnl -GI symptoms appear well controlled. [...] N/V. GI History: Patient transferred care from [place] (history below). Well-controlled ulcerative colitis until April [...] Date/Time CALCIUM 9.3 01/17/2024 0947 ALKPHOS 84 01/17/2024 0947 AST 33 (H) 01/17/2024 0947 ALT 42 (H) 01/17/2024 0947 BILITOT 0.3 [...] yo): N/A Current Immunizations Name Date Covid-19 ([employer]), Vora Cap Bivalent 30mcg (12Yrs+) 09/05/2022 (4) [...] (CTs): 40 minutes spent in chart review, llxt-ob-svpy time and coordination of care with the patient today. Follow up 4 months Janice Villarreal MD Gastroenterology and Hepatology 03/12/2024 8:39 AM Pager # [phone] documented in this encounter Plan of Treatment Scheduled Orders Name Type Priority Associated Diagnoses Orde r Schedule Comprehensive metabolic panel (non-fasting) Lab Routine Transaminitis Expected: 03/19/2024, Expires: 09/18/2024 documented as of this encounter Procedures Procedure Name Priority Date/Time Associated Diagnosis Comments INFLIXIMAB LEVEL Routine 03/12/2024 9:32 AM EDT Ulcerative pancolitis without complication CRP, ACUTE INFLAMMATION Routine 03/12/2024 9:32 AM EDT Ulcerative pancolitis without complication BILIRUBIN, DIRECT Routine 03/12/2024 9:3 2 AM EDT COMPREHENSIVE METABOLIC PANEL Routine 03/12/2024 9:32 AM EDT Transaminitis documented in this encounter Results * Bilirubin, Direct (03/12/2024 9:32 AM EDT) Bilirubin, Direct 0.1 0.0 - 0.3 mg/dL [facility] Blood 03/12/2024 9:32 AM EDT 03/12/2024 9:43 AM EDT Narrative Resulting Agency Comment Spec In Lab Janice Villarreal MD CHEMISTRY ORDERABLES [facility] [place] [address] * CRP, acute inflammation (03/12/2024 9:32 AM EDT) C-Reactive Protein <3.0 <=4.9 mg/L [facility] Blood 03/12/2024 9:32 AM EDT 03/12/2024 9:43 AM EDT Narrative Resulting Agency Comment Spec In Lab Janice Villarreal MD CHEMISTRY ORDERABLES [facility] [place] [address] * Infliximab Level (03/12/2024 9:32 AM EDT) Infliximab Level (MAY) Test ? Result ?Flag ??Unit ?RefValue ------- Infliximab QN with Reflex to Ab, S ??Infliximab, S ?9.1 ? mcg/mL ? ---REFERENCE VALUE ?Limit of Quantitation = 1.0 mcg/mL ??Interpretation ? SEE COMMENTS ?For clinical assessment of response to therapy, infliximab ?should be measured at trough. When infliximab trough ?concentrations are greater than 5.0 mcg/mL, clinically ?relevant mhseodzqst-rl-mknd iximab are unlikely and reflex ?testing will not be performed. ? ---ADDITIONAL INFORMATION------- ?This test was developed and its performance characteristics ?determined by [facility] in a manner consistent with CLIA ?requirements. This test has not been cleared or approved by ?the U.S. Food and Drug Administration. ?Test Performed by: ?[facility] ?[address] [place] [address] ?Truck Greaser: Patricia Saravia Ph.D.; CLIA# [id number] [facility] Blood 03/12/2024 9:32 AM EDT 03/12/2024 12:24 PM EDT Narrative Resulting Agency Comment Spec In Lab Janice Villarreal MD LAB SEND OUT ORDERAB LES [facility] [place] [address] * (ABNORMAL) Comprehensive metabolic panel (non-fasting) (03/12/2024 9:32 AM EDT) Glucose 94 65 - 199 mg/dL [facility] Comment:Diabetes: >=200 mg/d L plus symptoms Blood Urea Nitrogen 13 8 - 18 mg/dL [facility] Creatinine 0.58(L) 0.70 - 1.20 mg/dL [facility] Sodium 135 135 - 145 mmol/L [facility] Potassium 4.5 3.5 - 5.0 mmol/L [facility] Comment: Please note: ??Patients with WBC >100,000 may have falsely elevated Potassium levels. ??For accurate Potassium quantification in these patients send serum separator tube (gold top) for subsequent determinations. ??Contact the Clinical Chemistry Laboratory if there are any questions. Chloride 97(L) 98 - 107 mmol/L [facility] Carbon Dioxide 26 22 - 31 mmol/L [facility] Anion Gap 12 5 - 15 mmol/L [facility] Calcium 9.5 8.5 - 10.5 mg/dL [facility] Protein, Total 6.9 6.1 - 8.0 g/dL [facility] Albumin 4.6 3.2 - 5.2 g/dL [facility] Aspartate Aminotransferase 20 0 - 30 unit/L [facility] Alanine Aminotransferase 28 0 - 30 unit/L [facility] Alkaline Phosphatase 88 35 - 105 unit/L [facility] Bilirubin, Total 0.3 0.2 - 1.3 mg/dL [facility] Est Glomerular Filtration Rate 100 >=60 mL/min/1. 73 m?? [facility] [...] MD CHEMISTRY ORDERABLES [facility] [place] [address] documented in this encounter Visit Diagnoses Diagnosis Ulcerative pancolitis without complication- Primary Transaminitis Nonspecific elevation of levels of transaminase or lactic acid dehydrogenase (LDH) documented in this encounter Care Teams Ice Seller Relationship Specialty Start Date End Date Pradeep Gallardo APRN PCP - General 07/19/10 08/04/24 documented as of this encounter
--- OUTSIDE RECORDS SUMMARY | 2024-09-05 16:50 | XMS_ITS | Encounter Summary ---
Author Organization [facility] Address [address] [place] [address] Care Team Providers Care Tile Picker Name Role Phone Aria Thompson MD Primary Care Provider Reason for Visit * Reason Onset Date Comments Appointment Related 12/03/2017 Encounter Details Date Type Department Care Team (Late st Contact Info) Description 12/03/2017 Telephone Vascular Surgery and Endovascular Therapy - [address] [id number] Everette Boggs MD [address] [facility], [address] [place] [address] Appointment Related Social History Tobacco [...] on filedocumented in this encounter Care Teams Tile Picker Relationship Specialty Start Date End Date Aria Thompson MD PCP - General 12/03/17 06/26/24 documented as of this encounter
--- OUTSIDE RECORDS SUMMARY | 2024-09-05 16:50 | XMS_ITS | Encounter Summary ---
Author Organization [facility] [place] [address] Care Team Providers Care Coin Machine Collector Name Role Phone Paulina Pradeep Swartz APRN Primary Care Provider [phone] Encounter Details Date Type Department Care Team (Late st Contact Info) Description 01/23/2024 [place] [phone] Abby Baer RN Social History Tobacco Use [...] had sent her a letter ~ Sent [facility] message with MRI Results letter to follow [...] on filedocumented in this encounter Care Teams Coin Machine Collector Relationship Specialty Start Date End Date Pradeep Gallardo APRN PCP - General 07/19/10 08/04/24 documented as of this encounter
--- OUTSIDE RECORDS SUMMARY | 2024-09-05 16:50 | XMS_ITS | Encounter Summary ---
[place] [address] Care Team Providers Care Geothermal System Installer Name Role Phone Pradeep Gallardo APRN Primary Care Provider [phone] Encounter Details Date Type Department Care Team [...] on filedocumented in this encounter Care Teams Geothermal System Installer Relationship Specialty Start Date End Date Pradeep Gallardo APRN PCP - General 07/19/10 08/04/24 documented as of this encounter
--- OUTSIDE RECORDS SUMMARY | 2024-09-05 16:50 | XMS_ITS | Encounter Summary ---
Author Organization [facility] Address [address] [place] [address] Care Team Providers Care Mechanical Tech Name Role Phone Unavailable Primary Care Provider Unavailabl e Encounter Details Date Type Department Care Team (Latest Contact Info) Description 07/14/2003 9:31 EST - 07/14/2003 11:59 EST Hospital Encounter [address] [address] [place] [address] [place] [address] [place] [address] Discharge Disposition: Auto Discharge Social History Tobacco [...] time and will contain recommendations for follow-up. [facility] Addendum # 1 by Amie Goetz [...] O'CLOCK The patient had an evaluation at [facility], at which time a likely complex cyst [...] slightly smaller in size than on the [facility] examination, which was done at the [...] O'CLOCK The patient had an evaluation at [facility], at which time a likely complex cyst [...] slightly smaller in size than on the [facility] examination, which was done at the [...] time and will contain recommendations for follow-up. [facility] Addendum # 1 by Amie Goetz [...] call the patient with results and recommendations. / Frederick Chinchilla MD [facility] ORDERABLES Final Re sult * CYTOPATHOLOGY (07/14/2003 0:00 EST) Pathology Report: CYTOPATHOLOGY REPORT Reports generated via electronic interface contain original data; however they are lacking the format of the original report. Caution should be taken when reading/interpreti ng unformatted reports. Name: ? SKYLA LONDONO ? Accession #: ? [id number] : ? 1960 (Age: 42) ??F ?Collect Date: ? 07/14/2003 Location: ? [facility] ? Receive Date: ? 07/14/2003 Provider: ? BENJAMIN WALL MD Copy to: ?NNAMDI CHINCHILLA MD ? Fine Needle Aspiration/Core Biopsy (Assisted) ? Radiology Department, [place] [address] ([facility]) ? CYTOLOGIC DIAGNOSIS: ? Breast, left, cyst aspirate, cytologic evaluation: - No malignant cells identified. ??See comment. ? COMMENT: ? Microscopic examination shows numerous foam cells in a background of proteinaceous debris. ??This is compatible with a benign cystic process. ??(Dr. Bush)/[facility] Document reviewed and electronically signed by: ? JOHANN BUSH MD [facility] Report Date: ??07/15/2003 12:45 By the [...] MONIKA CAMPOS 07/14/2003 07/14/2003 12: 32 EST us Benjamin Wall MD PATHOLOGY ORDERABLES Fin al Result [facility] [address] [place] [address] documented in this encounter Visit Diagnoses Not on filedocumented in this encounter
--- OUTSIDE RECORDS SUMMARY | 2024-09-05 16:50 | XMS_ITS | Encounter Summary ---
Author Organization [facility] Address [address] [place] [address] Care Team Providers Care Tester Sound Name Role Phone Aria Thompson MD Primary Care Provider Encounter Details Date Type Department Care Team (Late st Contact Info) Description 02/18/2018 6:45 EDT - 02/18/2018 23:59 EDT Hospital Encounter [address] [address] Marleny Quezada MD [address] [place] [phone] Everette Boggs MD [address] [facility], Level [address] [place] [phone] Discharge Disposition: Auto Discharge Social History Tobacco [...] shopping? Answer Date of Assessment Author Yes 01/28/2018 8:42 EDT documented as of this encounter Mental Status * Because of a physical, mental, or emotional condition, does this person have serious difficulty concentrating, remembering, or making decisions? Answer Entry Date Author Yes 01/28/2018 8:42 EDT documented in this encounter Discharge Diagnoses Diagnosis R23.0 Cyanosis-R23.0[ICD-10-CM] [...] on filedocumented in this encounter Care Teams Tester Sound Relationship Specialty Start Date End Date Aria Thompson MD PCP - General 12/03/17 06/26/24 documented as of this encounter
--- OUTSIDE RECORDS SUMMARY | 2024-09-05 16:50 | XMS_ITS | Encounter Summary ---
Author Organization [facility] Address [address] [place] [address] Care Team Providers Care Insurance Advisor Name Role Phone Bartolo Landon MD Primary Care Provider [phone] Encounter Details Date Type Department Care Team (Latest Contact Info) Description 05/28/2009 11:09 EDT - 05/28/2009 23:59 EDT Hospital Encounter [address] [address] Pavan Zurita MD Discharge Disposition: Home or [...] Code Departure Means Destination Home or Self Mcfp documented in this encounter Procedure Notes * Inpatient, Physician - 05/31/2009924 EDTAssociated Order(s): ORDERS - SCANNED * Inpatient, Physician - 05/31/2009924 EDTAssociated Order(s): PATHOLOGY - SCANNED * Inpatient, Physician - 05/31/2009924 EDT documented in this encounter Miscellaneous Notes * Scanned Note-Null - Inpatient, Physician - 05/31/2009 0925 EDT * Brief Op Note - Inpatient, [...] 05/31/2009 9:25 EDT Physician Inpatient MD ADMISSION ORDERABLES Kourtney l Result * PATHOLOGY - SCANNED (05/31/2009 9:25 EDT) 05/31/2009 9:25 EDT Narrative Procedure Note Inpatient, Physician - 05/31/2009 9:25 EDT Physician Inpatient MD LAB INFO SERVICE AND SUPP ORT & PHONE RESULT Final Result documented in this encounter Visit Diagnoses Not on filedocumented in this encounter Care Teams Insurance Advisor Relationship Specialty Start Date End Date Bartolo Landon MD [address] [place] [address] PCP - General 03/12/09 12/02/17 documented as of this encounter
--- OUTSIDE RECORDS SUMMARY | 2024-09-05 16:50 | XMS_ITS | Encounter Summary ---
Author Organization [facility] Address [address] [place] [address] Care Team Providers Care Ecological Risk Assessor Name Role Phone Aria Thompson MD Primary Care Provider Encounter Details Date Type Department Care Team (Late st Contact Info) Description 02/08/2018 Results Only Imaging [facility] Vascular Surgery - [place] [address] [place] [address] Everette Boggs MD [address] [place] [address] [address] [place] [address] Social History Tobacco Use Types [...] 01/28/2018 8:42 EDT documented in this encounter Plan of [...] CONTRAST ??02/18/2018 9:30 AM Signs and Symptoms/Comments: ??R23.3-Uwtkmxgd-XPU-10; CTA chest and bilateral upper extremity for [...] CONTRAST 02/18/2018 9:30 AM Signs and Symptoms/Comments: R23.8-Azukgerf-RRD-10; CTA chest and bilateral upper extremity for [...] above interpretation and agree with the findings. us Everette Boggs MD IMG CT ORDERABLES Final Resu lt * CT ANGIO UPPER EXTREMITY W/WO CONTRAST (02/18/2018 9:30 EDT) Anatomical Region Laterality Modality Other 02/18/2018 9:30 EDT 02/19/2018 17:13 EDT Narrative 02/19/2018 17:[address] ANGIO BILATERAL UPPER EXTREMITIES W/WO CONTRAST, CT ANGIO BILATERAL UPPER EXTREMITIES W/WO CONTRAST ??02/18/2018 9:30 AM Signs and Symptoms/Comments: ??R23.3-Nkjmgnqr-SEB-10; CTA chest and bilateral upper extremity for [...] CONTRAST 02/18/2018 9:30 AM Signs and Symptoms/Comments: R23.6-Bhctxodp-GVW-10; CTA chest and bilateral upper extremity for [...] above interpretation and agree with the findings. us Everette Boggs MD IMG CT ORDERABLES Final Resu lt documented in this encounter Visit Diagnoses Not on filedocumented in this encounter Care Teams Ecological Risk Assessor Relationship Specialty Start Date End Date Aria Thompson MD PCP - General 12/03/17 06/26/24 documented as of this encounter
--- OUTSIDE RECORDS SUMMARY | 2024-09-05 16:50 | XMS_ITS | Encounter Summary ---
[place] [address] Care Team Providers Care Auto Damage Insurance Appraiser Name Role Phone Pradeep Gallardo APRN Primary Care Provider [phone] Encounter Details Date Type Department Care Team (Late st Contact Info) Description 02/18/2024 [place] [phone] Talya Flynn Social History Tobacco Use Types [...] on filedocumented in this encounter Care Teams Auto Damage Insurance Appraiser Relationship Specialty Start Date End Date Pradeep Gallardo APRN PCP - General 07/19/10 08/04/24 documented as of this encounter
--- OUTSIDE RECORDS SUMMARY | 2024-09-05 16:50 | XMS_ITS | Encounter Summary ---
Author Organization [facility] Address [address] [place] [address] Care Team Providers Care Photographic Editor Name Role Phone Bartolo Landon MD Primary Care Provider [phone] Encounter Details Date Type Department Care Team (Late st Contact Info) Description 08/31/2004 Results Only [facility] [address] [place] [address] Unknown, Provider, Social History Tobacco Use Types [...] 08/31/2004 20:4 2 EST 09/01/2004 21:27 EST us Provider Unknown MD CHEMISTRY & BLOOD GAS ORDERA BLES Final Result [facility] [address] [place] [address] documented in this encounter Visit Diagnoses Not on filedocumented in this encounter Care Teams Photographic Editor Relationship Specialty Start Date End Date Bartolo Landon MD [address] [place] [phone] PCP - General 03/12/09 12/02/17 documented as of this encounter
--- OUTSIDE RECORDS SUMMARY | 2024-09-05 16:50 | XMS_ITS | Encounter Summary ---
Author Organization [facility] Address [address] [place] [address] Care Team Providers Care Sheep Herder Name Role Phone Bartolo Landon MD Primary Care Provider [phone] Encounter Details Date Type Department Care Team (Latest Contact Info) Description 01/01/2017 14:58 EDT - 01/01/2017 23:59 EDT Hospital Encounter [facility] [address] [place] [address] Unknown, Provider, MD Discharge Disposition: Home or Self Care [...] Code Departure Means Destination Home or Self Nursing Home documented in this encounter Plan of Treatment Not on file documented as of this encounter Visit Diagnoses Not on filedocumented in this encounter Care Teams Sheep Herder Relationship Specialty Start Date End Date Bartolo Landon MD [address] [facility] [place] [address] PCP - General 03/12/09 12/02/17 documented as of this encounter
--- OUTSIDE RECORDS SUMMARY | 2024-09-05 16:50 | XMS_ITS | Encounter Summary ---
Author Organization [facility] Address [facility] [place] [address] Care Team Providers Care Nuclear Cardiology Technologist Name Role Phone Pradeep Gallardo APRN Primary Care Provider Encounter Details Date Type Department Care Team (Late st Contact Info) Description 12/27/2023 Telephone [place] [phone] Janice Villarreal MD [facility] [place] [address] Social History Tobacco Use Types Packs/Day Years [...] and Hepatology 12/27/2023 4:49 PM Pager # [phone] documented in this encounter Plan of Treatment [...] are greater than 5.0 mcg/mL, clinically ?relevant fehfdlargi-qa-mffq iximab are unlikely and reflex ?testing will not be performed. ? ---ADDITIONAL INFORMATION------- ?This test was developed and its performance characteristics ?determined by [facility] in a manner consistent with CLIA ?requirements. This test has not been cleared or approved by ?the U.S. Food and Drug Administration. ?Test Performed by: ?[facility] ?[address] [place] [address] ?Train Starter: Basil Retana M.D. Ph.D.; CLIA# [id number] [facility] Blood 01/17/2024 9:47 AM EDT 01/17/2024 12:31 PM EDT Narrative Resulting Agency Comment Spec In Lab Janice Villarreal MD LAB SEND OUT ORDERAB LES Performing Organization Address City/State/[facility] Co de Phone Number [facility] [place] [address] documented in this encounter Visit Diagnoses Diagnosis Ulcerative pancolitis without complication documented in this encounter Care Teams Nuclear Cardiology Technologist Relationship Specialty Start Date End Date Pradeep Gallardo APRN PCP - General 07/19/10 08/04/24 documented as of this encounter
--- OUTSIDE RECORDS SUMMARY | 2024-09-05 16:50 | XMS_ITS | Encounter Summary ---
Author Organization [facility] Address [address] [place] [address] Care Team Providers Care Programmer Business Name Role Phone Bartolo Landon MD Primary Care Provider [phone] Aria Thompson MD Primary Care Provider Encounter Details Date Type Department Care Team (Late st Contact Info) Description 01/01/2017 Historical Results Only [facility] Radiology Results [address] [place] [address] [place] [address] [place] [address] Social History Tobacco Use Types [...] MD ? CC: ? Transcribed Date/Time: 01/01/2017 (9748) ? Biscuit Packer: ? Printed Date/Time: 02/10/2019 (9982) ? PAGE 1 ? Signed Report ? Procedure Note Idris Garza MD - 07/02/2019 EXAM: ULTRASOUND/FINE NEEDLE ASPIRATION O EX. D/ (1343) CLINICAL INFORMATION: E04.2 NONTOXIC MULTINODULAR GOITER Procedure: Ultrasound-guided thyroid biopsy. Technique: Ultrasound imaging was provided to Dr. Belen Mendosa. REPORT SIGNED IN OTHER VENDOR SYSTEM 01/01/2017 Reported By: Idris Garza MD CC: Transcribed Date/Time: 01/01/2017 (7222) Biscuit Packer: Printed Date/Time: 02/10/2019 (9574) PAGE 1 Signed Report Belen Mendosa MD [facility] [place] ORDERABLES Final Resul t * CYTOLOGY (NON-GYNECOLOGIC INCLUDING FLUIDS AND FINE NEEDLE ASPIRATION)- ORDER ONLY (01/01/2017) 01/01/2017 01/01/2017 14: 29 EDT Narrative [facility] - 01/02/2017 15:37 EDT ----- ------- Name: SKYLA LONDONO ? : 56 ?Age/Sex: 58/F ?Unit#: [id number] ? Loc: DI ?Status: REG CLI ?? Reg Date: 01/01/17 ? Pt.Phone Number: ? ----- ------- Specimen: [id number] ? STATUS: SOUT ?Spec Date:01/01/17 ? Physician Copies: ?Belen Mendosa MD ?? Tissues: A ?? THYROID FNA (LEFT) ? Trevor Mensah MD ?? CPT: 68324 ?? Units: ??1 ? 52015 ? 1 ----- ------- ?? NON CONTENT ARCHITECT CYTOLOGY DIAGNOSIS THYROID, LEFT, ULTRASOUND GUIDED FINE [...] confirmed the above diagnosis. Test Performed by [facility], [address] [place] [address] Egg Packer: Keisha Garcia MD PHD ----- ------- Belen Mendosa MD PATHOLOGY ORDERABLES Final Re sult [facility] documented in this encounter Visit Diagnoses Not on filedocumented in this encounter Care Teams Programmer Business Relationship Specialty Start Date End Date Bartolo Landon MD [address] [place] [phone] PCP - General 03/12/09 12/02/17 Aria Thompson MD [address] [place] [phone] PCP - General 12/03/17 06/26/24 documented as of this encounter
--- OUTSIDE RECORDS SUMMARY | 2024-09-05 16:50 | XMS_ITS | Encounter Summary ---
Author Organization [facility] Address [address] [place] [address] Care Team Providers Care Associate Professor Of Violin Name Role Phone Aria Thompson MD Primary Care Provider Reason for Visit * Reason Comments New Patient Visit Referred by Dr. Fior johnson vascular for 2nd opinon seizure disorder/work nerve injury Sep 2016 * Consult (Routine/Next Available) - Specialty Report Received Specialty Diagnoses / Procedures Referred By Merari rosario Referred To Contact Neurology Diagnoses Seizure disorder ([facility]) Everette Boggs MD Phone: tel: fax: Nahum Hernandez MD Phone: tel: fax: Referral ID Status Reason Start Date Expiration Date Visits Requested Visits Authorized [id number] Specialty Report Received Second Opinion 12/05/2017 1 1 Encounter Details Date Type Department Care Team (Late st Contact Info) Description 01/28/2018 9:00 EDT Office Visit [facility] Neurology [facility] [address] [place], [place] [phone] Marleny Quezada MD [address] [place] [address] Seizures (HCC-CMS) (Primary Dx); Right [...] - documented in this encounter Functional Status * [...] 8:42 EDT documented in this encounter Discharge Disposition Disposition Code Departure Means Destination Auto Discharge documented in this encounter Progress Notes * Marleny Quezada MD - 01/28/2018 0900 EDT This office note has been dictated. documented in this encounter Consult Notes * Marleny Quezada MD - 01/28/2018 0000 EDT [facility] NEUROLOGY CONSULTATION - 01/28/2018 CHIEF COMPLAINT: Seizures. [...] Dr Burgos and had been seen at [facility] at the time. Currently on Trileptal [...] stigmata. Then, on the 09/27/2016 in a company vehicle, she had been filling it up, [...] days. Went to the emergency room at [facility], then referred to Dr Boggs. [...] reflexes are symmetric throughout. No pathological reflexes. Frocsz-ja-sydo, rapid alternating movements are intact. Romberg sign [...] - Marleny Quezada MD pn Dictation ID: [id number] cc: Everette Boggs MD, [facility] - Vascular Surgery [address] [place] [address] Aria Thompson MD, [place] [address] documented in this encounter Plan of Treatment Not on file documented as of this encounter Visit Diagnoses Diagnosis Seizures (HCC-CMS)- Primary Other convulsions Right arm pain Pain in limb documented in this encounter Discontinued Medications Medication Sig Discontinue Reason Start Date End Da te lamoTRIgine (LAMICTAL) 25 mg tablet Take 25 mg by mouth 2 times daily. Patient Stopped Taking 01/28/2018 documented as of this encounter Historical Medications * This list may reflect changes made after this encounter. cholecalciferol, vitamin D3, (VITAMIN D3 ORAL) Take 2,000 Tabs by mouth daily. lamoTRIgine (LAMICTAL) 100 mg tablet Take 100 mg by mouth 2 times daily. 03/27/2019 added in this encounter Care Teams Associate Professor Of Violin Relationship Specialty Start Date End Date Aria Thompson MD PCP - General 12/03/17 06/26/24 documented as of this encounter
--- OUTSIDE RECORDS SUMMARY | 2024-09-05 16:50 | XMS_ITS | Encounter Summary ---
[place] [address] Care Team Providers Care Bolt Sorter Name Role Phone Pradeep Gallardo APRN Primary [...] on filedocumented in this encounter Care Teams Bolt Sorter Relationship Specialty Start Date End Date Pradeep Gallardo APRN PCP - General 07/19/10 08/04/24 documented as of this encounter
--- OUTSIDE RECORDS SUMMARY | 2024-09-05 16:50 | XMS_ITS | Encounter Summary ---
Author [facility] [place] [address] Care Team Providers Care Tax Manager Public Name Role Phone Pradeep Gallardo APRN Primary Care Provider [phone] Encounter Details Date Type Department Care Team (Late st Contact Info) Description 01/23/2024 Telephone [place] [phone] Elenita Taveras Social History Tobacco Use Types [...] with Dr. Villarreal. Held time on 03/12 8:30. Ok for aswell if patient is agreeable. documented in this encounter Plan of Treatment Not on file documented as of this encounter Visit Diagnoses Not on filedocumented in this encounter Care Teams Tax Manager Public Relationship Specialty Start Date End Date Pradeep Gallardo APRN PCP - General 07/19/10 08/04/24 documented as of this encounter
--- OUTSIDE RECORDS SUMMARY | 2024-09-05 16:50 | XMS_ITS | Encounter Summary ---
Author Organization [facility] Address [address] [place] [address] Care Team Providers Care Associate Director Of Sales Name Role Phone Aria Thompson MD Primary Care Provider Reason for Visit * Reason Comments Follow-up CTA first Encounter Details Date Type Department Care Team (Late st Contact Info) Description 02/18/2018 9:45 EDT Office Visit Vascular Surgery and Endovascular Therapy - [address] [phone] Everette Boggs MD [address] [facility], [address] [place] [address] Cyanosis of fingertip (Primary Dx) Discharge Disposition: Auto Discharge Social History Tobacco Use Types Packs/Day Years Used Date Smoking Tobacco: Former Cigarettes 0.3 10 Smokeless Tobacco: Never Tobacco Cessation:Counseling Given: Yes Comments Unknown Sex and Gender Information Value [...] Boggs MD - 02/18/2018 0000 EDT [facility] VASCULAR SURGERY CONSULTATION - 02/18/2018 SUBJECTIVE: I [...] - Everette Boggs MD cn Dictation ID: [id number] documented in this encounter Plan of Treatment Not on file documented as of this encounter Visit Diagnoses Diagnosis Cyanosis of fingertip- Primary Cyanosis documented in this encounter Care Teams Associate Director Of Sales Relationship Specialty Start Date End Date Aria Thompson MD PCP - General 12/03/17 06/26/24 documented as of this encounter
--- OUTSIDE RECORDS SUMMARY | 2024-09-05 16:50 | XMS_ITS | Encounter Summary ---
Author Organization [facility] Address [address] [place] [address] Care Team Providers Care Hip Hop Performers Name Role Phone Unavailable Primary Care Provider Unavailabl e Encounter Details Date Type Department Care Team (Latest Contact Info) Description 07/04/2005 18:38 EST Hospital Encounter [facility] - Other [address] [place] [address] Mandi Sawyer, KATE [address] [place] [phone] Discharge Disposition: Home or Self Care [...]
--- OUTSIDE RECORDS SUMMARY | 2024-09-05 16:50 | XMS_ITS | Encounter Summary ---
Author Organization [facility] Address [address] [place] [address] Care Team Providers Care District Court Reporter Name Role Phone Aria Thompson MD Primary Care Provider Reason for Visit * Reason Comments Follow-up Encounter Details Date Type Department Care Team (Late st Contact Info) Description 06/10/2018 11:30 EDT Office Visit [facility] Neurology [facility] [address] [place] [address] Marleny Quezada MD [address] [place] [address] Seizures ([facility]-CMS) (Primary Dx); Osteopenia, unspecified location; On antiepileptic [...] Refills Last Filled Start Date End Date TRILEPTAL 300 mg tablet Take 1 Tab by mouth 4 times daily for 180 days. BRAND ONLY 360 Tab 1 06/10/2018 12/07/2018 documented in this encounter Discharge Disposition Disposition Code Departure Means Destination Auto Discharge documented in this encounter Progress Notes * Marleny Quezada MD - 06/10/[address] [facility] NEUROLOGY ?? FOLLOW UP - 06/10/2018 ? [...] had her labs, MRI brain done at [facility]. I do not have any of those [...] reflexes are symmetric throughout. No pathological reflexes. Idbijo-oi-gryy, rapid alternating movements are intact. Romberg sign absent. Gait normal. IMAGING: Not available. LABS: Not available. EMG: April 2018- The electrodiagnostic study was normal today which is reassuring. There is no need for further neurological investigations unless there is change in symptoms. EEG: April 2018, 72 hour ambulatory and baseline studies at [facility] Impression: Abnormal ambulatory monitoring study with left [...] of this encounter Visit Diagnoses Diagnosis Seizures ([facility]-CMS)- Primary Other convulsions Osteopenia, unspecified location On antiepileptic therapy documented in this encounter Discontinued Medications Medication Sig Discontinue Reason Start Date End Da te OXcarbazepine (TRILEPTAL) 300 mg tablet Take 300 mg by mouth 4 times daily. Reorder 06/10/2018 documented as of this encounter Care Teams District Court Reporter Relationship Specialty Start Date End Date Aria Thompson MD PCP - General 12/03/17 06/26/24 documented as of this encounter
--- OUTSIDE RECORDS SUMMARY | 2024-09-05 16:50 | XMS_ITS | Encounter Summary ---
[place] [address] Care Team Providers Care High Value Associate Name Role Phone Pradeep Gallardo APRN Primary Care Provider Reason for Referral * Diagnostic Test (Routine) - Pending Review Specialty Diagnoses / Procedures Referred By Contac t Referred To Contact Radiology Diagnoses Transaminitis Procedures MRI Cholangiopancreatography WO Contrast Janice Villarreal MD [facility] [place] [address] [place] [address] Referral ID Status Reason Start Date Expiration Date Visits Requested Visits Authorized [id number] Pending Review Specialty Service Requested 12/26/2023 06/27/2025 1 1 Reason for Visit * Diagnostic Test (Routine) - Pending Review Specialty Diagnoses / Procedures Referred By Contac t Referred To Contact Radiology Diagnoses Transaminitis Procedures MRI Cholangiopancreatography WO Contrast Janice Villarreal MD [facility] [place] [address] [place] [address] Referral ID Status Reason Start Date Expiration Date Visits Requested Visits Authorized [id number] Pending Review Specialty Service Requested 12/26/2023 06/27/2025 1 1 Encounter Details Date Type Department Care Team (Latest Contact Info) Description 01/17/2024 8:08 AM EDT - 01/17/2024 11:59 PM EDT Hospital Encounter MRI at [facility] [place] [address] Janice Villarreal MD [facility] [place] [address] Transaminitis Discharge Disposition: Home Social History Tobacco [...] daily. OXcarbazepine (TRILEPTAL) 300 mg tablet 04/04/2002 psyllium Take 1 packet by mouth daily. 90 packet 3 06/13/2023 polyethylene glycoL (Miralax) 17 gram/dose Powder Take 17 g by mouth daily as needed. 255 g 3 06/13/2023 documented as of this encounter Plan of Treatment Not on file documented as of this encounter Procedures Procedure Name Priority Date/Time Associated Diagnosis Comments MRI CHOLANGIOPANCREATOGRAPHY Routine 9:20 AM EDT Transaminitis documented in this encounter Results * MRI Cholangiopancreatography WO Contrast (01/17/2024 9:20 AM EDT) WORKSTATION ID [id number] [facility] Anatomical Region Laterality Modality Magnetic Resonan ce Impressions 01/17/2024 11:00 AM EDT No stricture or beading to suggest PSC. Thank you for letting us participate in the care of this patient. ??If you are a health care provider and have any questions regarding this report, please contact the number below. ??For patients who have questions please contact the health managed care analyst that requested your imaging first. ? Narrative 01/17/2024 11:00 AM EDT EXAMINATION: MRI [...] patients who have questions please contactthe health managed care analyst that requested your imaging first. Janice Villarreal MD IMG MRI ORDERABLES documented in this encounter Visit Diagnoses Diagnosis Transaminitis Nonspecific elevation of levels of transaminase or lactic acid dehydrogenase (LDH) documented in this encounter Care Teams High Value Associate Relationship Specialty Start Date End Date Pradeep Gallardo APRN PCP - General 07/19/10 08/04/24 documented as of this encounter
--- OUTSIDE RECORDS SUMMARY | 2024-09-05 16:50 | XMS_ITS | Encounter Summary ---
Author Organization [facility] Address [address] [place] [address] Care Team Providers Care Warper Tender Name Role Phone Aria Thompson MD Primary Care Provider Encounter Details Date Type Department Care Team (Late st Contact Info) Description 05/27/2018 9:45 EDT - 05/27/2018 23:59 EDT Hospital Encounter [facility] Neurophysiology - [facility] ([place] [address]) [address] [place] [address] Unknown, Provider, Idris London MD PhD [address] [facility]. [address] [place] [phone] Discharge Disposition: Auto Discharge Social History Tobacco [...] (05/29/2018 13:49 EDT) 05/29/2018 13:4 9 EDT us Scan 2 Potato Seed Cutter PROCEDURE/MINOR SURGICAL OR DERABLES Final Result documented in this encounter Visit Diagnoses Not on filedocumented in this encounter Care Teams Warper Tender Relationship Specialty Start Date End Date Aria Thompson MD PCP - General 12/03/17 06/26/24 documented as of this encounter
--- OUTSIDE RECORDS SUMMARY | 2024-09-05 16:50 | XMS_ITS | Encounter Summary ---
Author Organization [facility] Address [address] [place] [address] Care Team Providers Care Rda Name Role Phone Bartolo Landon MD Primary Care Provider [phone] Aria Thompson MD Primary Care Provider Encounter Details Date Type Department Care Team (Late st Contact Info) Description 06/28/2010 Historical Results Only [facility] - Main [address] [id number] Frederick Chinchilla MD [address] [place] [address] Social History Tobacco Use Types Packs/Day Years [...] 12:4 8 EDT 06/28/2010 16:17 EDT Narrative [facility] - 07/01/2010 12:59 EDT ----- ------- Name: SKYLA LONDONO ? : [birth year] ?Age/Sex: 58/F ?Unit#: [id number] ? Loc: AGO ? Status: REG POV ?? Reg Date: 06/28/10 ? Pt.Phone Number: ? ----- ------- Specimen: [id number] ?STATUS: SOUT ?Spec Date:06/28/10 ? Physician Copies: ?Frederick Chinchilla J Tissues: ? Cervical/Endo Pap ? CPT: 30978 ?? Units: ??1 ----- ------- ? CYTOLOGY [...] Performed by [facility], [address] [id number] Die Maintenance Technician: Keisha Garcia MD PHD ----- ------- us Frederick Chinchilla MD PATHOLOGY ORDERABLES Final Result [facility] documented in this encounter Visit Diagnoses Not on filedocumented in this encounter Care Teams Rda Relationship Specialty Start Date End Date Bartolo Landon MD [address] [phone] PCP - General 03/12/09 12/02/17 Aria Thompson MD [address] [address] PCP - General 12/03/17 06/26/24 documented as of this encounter
--- OUTSIDE RECORDS SUMMARY | 2024-09-05 16:50 | XMS_ITS | Encounter Summary ---
Author Organization [facility] Address [address] [place] [address] Care Team Providers Care Cardiology Physician Name Role Phone Aria Thompson MD Primary Care Provider Reason for Visit * Reason Comments New Patient Visit Encounter Details Date Type Department Care Team (Late st Contact Info) Description 12/03/2017 10:00 EDT Office Visit Vascular Surgery and Endovascular Therapy - [address] [phone] Everette Boggs MD [address] [facility], [address] [place] [address] Cyanotic fingertip (Primary Dx) Discharge [...] 12/03/2017 9:40 EDT documented in this encounter Discharge Disposition Disposition Code Departure Means Destination Auto Discharge documented in this encounter Progress Notes * Everette Boggs MD - 12/03/2017 1501 EDT This office note has been dictated. Everette Boggs MD 12/03/2017 15:01 documented in this encounter Consult Notes * Everette Boggs MD - 12/03/2017 0000 EDT [facility] VASCULAR SURGERY CONSULTATION - 12/03/2017 Aria Thompson MD [address] Thompson: I saw Elsa Lujan [...] 03 01 PM - Everette Boggs MD marco Dictation ID: [id number] cc: Aria Thompson MD, [address] [address] documented in this encounter Plan of Treatment Not on file documented as of this encounter Visit Diagnoses Diagnosis Cyanotic fingertip- Primary Cyanosis documented in this encounter Historical Medications * This list may reflect changes made after this encounter. lamoTRIgine (LAMICTAL) 25 mg tablet Take 25 mg by mouth 2 times daily. 01/28/2018 OXcarbazepine (TRILEPTAL) 300 mg tablet Take 300 mg by mouth 4 times daily. 06/10/2018 added in this encounter Care Teams Cardiology Physician Relationship Specialty Start Date End Date Aria Thompson MD PCP - General 12/03/17 06/26/24 documented as of this encounter
--- OUTSIDE RECORDS SUMMARY | 2024-09-05 16:50 | XMS_ITS | Encounter Summary ---
Author Organization [facility] Address [address] [place] [address] Care Team Providers Care Local Superintendent Name Role Phone Unavailable Primary Care Provider Unavailabl e Encounter Details Date Type Department Care Team (Latest Contact Info) Description 03/10/2009 9:55 EDT - 03/10/2009 9:56 EDT Hospital Encounter [facility] - Other [address] [place] [address] Pavan Zurita MD Discharge Disposition: Home or [...] reading/interpreti ng unformatted reports. ? Name: ? SKYLA LONDONO L ? Accession #: ? [id number] ? : ? 1960 (Age: 48) ??F ? Collect Date: ? 05/28/2009 ? Location: ? [facility] ? Receive Date: ? 05/28/2009 ? Provider: PAVAN ZURITA MD ? Copy to: NNAMDI LUU MD ? Final Pathologic Diagnosis: ? A. [...] disease in the appropriate clinical setting. ??(Dr. Silva)/mms ? Document reviewed and electronically signed by: [...] Description: ? Received in [employer]'s fixative labelled Hodgeman, Skyla and right colon ?? are multiple, corea-yellow, irregular soft tissue fragments ranging in size from ?? 1.0 x 0.4 x 0.2 cm to 0.3 x 0.2 x 0.2 cm. ??Submitted entirely as (A1) and (A2). ? Received in [facility]'s fixative labelled Hodgeman, Skyla and transverse colon ?? are multiple yellow-corea, irregular soft tissue fragments ranging in size from ?? 0.7 x 0.4 x 0.2 cm to 0.2 x 0.2 x 0.2 cm, submitted entirely as (B1) and (B2). ? Received in [employer]'s fixative labelled Tai, Skyla and left colon are ? three yellow-corea, irregular soft tissue fragments ranging in size from 0.7 x 0.3 x 0.2 cm to 0.6 x 0.4 x 0.2 cm, submitted entirely as (C). ? Received in [facility]'s fixative labelled Tai, Skyla and 0.0 cm to 30.0 cm ?? are multiple yellow-corea, irregular soft tissue fragments ranging in size from ?? 0.5 x 0.3 x 0.2 cm to 0.2 x 0.2 x 0.2 cm, submitted entirely as (D1) and (D2). ?? (T. Liz)/cjh ? End of Report ? MONIKA CAMPOS 05/28/2009 05/28/2009 19: 03 EDT us Pavan Zurita MD PATHOLOGY ORDERABLES Final Resul t MONIKA CAMPOS [address] [place] [address] documented in this encounter Visit Diagnoses Not on filedocumented in this encounter
--- OUTSIDE RECORDS SUMMARY | 2024-09-05 16:50 | XMS_ITS | Encounter Summary ---
Author Organization [facility] [place] [address] Care Team Providers Care Spindle Plumber Name Role Phone Pradeep Gallardo APRN Primary Care Provider [phone] Encounter Details Date Type Department Care Team (Late st Contact Info) Description 03/14/2024 Orders [place] [address] Janice Villarreal MD [facility] [place] [address] Ulcerative pancolitis without complication Social History Tobacco [...] of this encounter Plan of Treatment Scheduled Orders Name Type Priority Associated Diagnoses Orde r Schedule Infliximab Level Lab Routine Ulcerative pancolitis without complication Expected: 03/14/2024, Expires: 09/13/2024 documented as of this encounter Visit Diagnoses Diagnosis Ulcerative pancolitis without complication documented in this encounter Care Teams Spindle Plumber Relationship Specialty Start Date End Date Pradeep Gallardo APRN PCP - General 07/19/10 08/04/24 documented as of this encounter
--- OUTSIDE RECORDS SUMMARY | 2024-09-05 16:50 | XMS_ITS | Encounter Summary ---
Author Organization [facility] Address [address] [place] [address] Care Team Providers Care International Marketing Coordinator Name Role Phone Bartolo Landon MD Primary Care Provider [phone] Reason for Visit * Reason Onset Date Comments Procedure 11/30/2017 Encounter Details Date Type Department Care Team (Late st Contact Info) Description 11/30/2017 Orders Only Vascular Surgery and Endovascular Therapy - [address] [phone] Everette Boggs MD [address] [place] [phone] Cyanotic fingertip (Primary Dx) Social History [...] 12/03/2017 9:47 EDT Vascular Diagnostic Laboratory [facility] Melt House Supervisor [address] [place] [address] Technologist: Ayanna Matias Fellow: IMPRESSIONS No evidence [...] MD - 12/03/2017 Vascular Diagnostic Laboratory [facility], [facility] [address] [place] [address] Technologist: Ayanna Matias Fellow: IMPRESSIONS No evidence [...] Everette Boggs 12/03/2017 09:47 Everette Boggs MD [facility] VASCULAR ORDERABLES F inal Result documented in this encounter Visit Diagnoses Diagnosis Cyanotic fingertip- Primary Cyanosis documented in this encounter Care Teams International Marketing Coordinator Relationship Specialty Start Date End Date Bartolo Landon MD [address] [place] [place] [phone] PCP - General 03/12/09 12/02/17 documented as of this encounter
--- OUTSIDE RECORDS SUMMARY | 2024-09-05 16:50 | XMS_ITS | Encounter Summary ---
Author Organization [facility] Address [address] [place] [address] Care Team Providers Care Astronaut Mission Specialist Name Role Phone Bartolo Landon MD Primary Care Provider [phone] Encounter Details Date Type Department Care Team (Late st Contact Info) Description 05/25/2015 Results Only [facility] [phone] Raeann Thompson MD [address] [place] [address] Social History Tobacco Use Types Packs/Day Years [...] ? SKYLA LONDONO ? Accession #: ? [id number] ? : ? 1960 (Age: 54) ??F [...] types 16,18,31,33,35, 39,45,51,52,56,58, 59,66, and 66 by spanish teacher mediated amplification. Comments Document reviewed and electronically signed by: ? System Interface ? Report date: 06/03/2015 By the signature above, the attending physician certifies that he/she has personally conducted a gross and/or microscopic examination of the described specimens and rendered or confirmed the above diagnosis. End of Report [facility] 05/25/2015 05/26/2015 us Raeann Thompson MD PATHOLOGY ORDERABLES Fi nal Result [facility] [address] [place] [address] documented in this encounter Visit Diagnoses Not on filedocumented in this encounter Care Teams Astronaut Mission Specialist Relationship Specialty Start Date End Date Bartolo Landon MD [address] [place] [phone] PCP - General 03/12/09 12/02/17 documented as of this encounter
--- OUTSIDE RECORDS SUMMARY | 2024-09-05 16:50 | XMS_ITS | Encounter Summary ---
Author Organization [facility] Address [address] [place] [address] Care Team Providers Care House Furnishings Supervisor Name Role Phone Aria Thompson MD Primary Care Provider Encounter Details Date Type Department Care Team (Late st Contact Info) Description 05/25/2018 8:40 EDT - 05/25/2018 23:59 EDT Hospital Encounter [facility] Neurophysiology - [facility] ([place] [address]) [address] [place] [address] Unknown, Provider, Idris London MD PhD [address] [facility]. [address] [place] [phone] Discharge Disposition: Auto Discharge Social History Tobacco [...] on filedocumented in this encounter Care Teams House Furnishings Supervisor Relationship Specialty Start Date End Date Aria Thompson MD PCP - General 12/03/17 06/26/24 documented as of this encounter
--- OUTSIDE RECORDS SUMMARY | 2024-09-05 16:50 | XMS_ITS | Encounter Summary ---
Author Organization [facility] Address [address] [place] [address] Care Team Providers Care Financial Advisor Trainee Name Role Phone Aria Thompson MD Primary Care Provider Reason for Visit * Reason Onset Date Comments Other 02/06/2018 Encounter Details Date Type Department Care Team (Late st Contact Info) Description 02/06/2018 Telephone [facility] [address] [place] [address] Marleny Quezada MD [address] [place] [address] Other Social History Tobacco Use [...] 01/28/2018 8:42 EDT documented in this encounter Miscellaneous Notes * Telephone Encounter - Marleny Quezada MD - 02/06/2018 0103 EDT Dictated so it should be out in a few days. * Telephone Encounter - Amber Dominguez - 02/06/2018 1144 EDT Vascular Surgery at [facility] called looking for your last note on this patient. documented in this encounter Plan of Treatment Not on file documented as of this encounter Visit Diagnoses Not on filedocumented in this encounter Care Teams Financial Advisor Trainee Relationship Specialty Start Date End Date Aria Thompson MD PCP - General 12/03/17 06/26/24 documented as of this encounter
--- OUTSIDE RECORDS SUMMARY | 2024-09-05 16:50 | XMS_ITS | Encounter Summary ---
Author Organization [place] [address] Care Team Providers Care Dog Sitter Name Role Phone Paulina Pradeep Sheridan SPIVEY Primary Care Provider [phone] Encounter Details Date Type Department Care Team (Late st Contact Info) Description 07/30/2024 9:30 AM EST Office [place] [address] Janice Villrareal MD [facility] [place] [address] Ulcerative pancolitis without complication (Primary Dx); Transaminitis [...] Sign Reading Time Taken Comments Blood Pressure - - Pulse - - Temperature - - Respiratory Rate - - Oxygen Saturation - - Inhaled Oxygen Concentration - - Weight 71.1 kg (156 lb 11.2 oz) 07/30/2024 9:06 AM EST Height - - Body Mass Index 28.66 03/12/2024 8:35 AM EDT documented in this encounter Progress Notes * Janice Villarreal MD - 07/30/2024 9:30 AM EST Images from the original note were not included. [facility] Division of Gastroenterology and Hepatology History of Present Illness: Elsa Lujan 63F w/ PMH of extensive colitis following up in GI clinic. Interval Events: -Elsa is doing well today. Really happy with how things are going. Usually has one BM after her coffee in the morning. Solid and formed BM. No blood or mucous. Rarely has any more BM after that. No longer needs fiber or Miralax. - infliximab trough 7.3 in 02/2024 -repeat LFTs wnl 06/2024 (in [facility]); CRP, CBC also wnl -Continuing at low-dose Remicade 5mg/kg due to concerns of 10mg/kg dosing. Remicade infusion two weeks ago at [facility] -No abdominal pain or distention. No nocturnal symptoms. Energy level feels good for Elsa -No painful rash, joint pains, oral ulcers, vision changes. She did get a new floater last week- went to see [employer], who provided reassurance, advised it would go away on its own within a few months. No eye pain. -Spending free time doing yoga, walking, visiting friends. 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 -planning a trip to [place] next year! Still figuring out plan. -avoiding opiates. Rarely will take NSAIDs for right arm pain after yoga -No F/chills or weight changes. No N/V. -undergoing workup currently with a known thyroid goiter that she describes has a new mass, and was biopsied at [facility]. First result returned as inconclusive, but sent for genetic testing to determine likelihood this could be a cancer, pending results -recent TSH wnl GI History: Patient transferred care from [place] (history below). Well-controlled ulcerative colitis until April [...] elevated, AST 53, ALT 108, ALP/TB wnl -MRCP 12/2023 wnl Review of Systems: Constitutional: No weight [...] taking: Reported on 03/12/2024) 255 g 3 No current facility-administered medications for this visit. Allergies Allergen Reactions Bee Pollens Entyvio [Vedolizumab] Rash Sulfa (Sulfonamide Antibiotics) Hives Physical Examination: Wt 71.1 kg (156 lb 11.2 oz) BMI 28.66 kg/m?? General: Pleasant, cooperative, no acute distress [...] 306 06/13/2023 Chemistry Component Value Date/Time NA 135 03/12/2024 0932 K 4.5 03/12/2024 0932 CL 97 (L) 03/12/2024 0932 CO2 26 03/12/2024 0932 BUN 13 03/12/2024 0932 CREATININE 0.58 (L) 03/12/2024 0932 Component Value Date/Time CALCIUM 9.5 03/12/2024 0932 ALKPHOS 88 03/12/2024 0932 AST 20 03/12/2024 0932 ALT 28 03/12/2024 0932 BILITOT 0.3 03/12/2024 0932 Pertinent Endoscopic Procedures/Reports: 09/2023 Colonoscopy - The [...] abscess nor perforation. ASSESSMENT & PLAN: Elsa Khant 63F w/ PMH of panulcerative colitis following up in GI clinic. Clinical symptoms appear to be in remission, with supporting data including low CRP, 09/2023 colonoscopy with normal mucosa. Since her colonoscopy, we had reduced her infliximab dose due to vague symptoms during her infusions and new transaminitis. Her LFTs have now normalized completley, with additional serologic testing only notable for positive TORRES (1:2560) at OSH but negative TORRES here, negative SMA/AMA. IgG normal. MRCP wnl. She is feeling much better with her reduced dosing; I am inclined to think her transaminitis was a infliximab- induced DILI. Can continue at current dose. Reviewed healthcare maintenance- needs flu shot this season. Recommendations: - s/p Remicade 10mg/kg loading x2 (08/11/22, 08/25/22) - continue outpatient Remicade 5 mg/kg q8w. - infliximab trough 7.3 02/2024; 09/2023 colonoscopy normal - HBV immune; Quant gold negative - psyllium daily, miralax daily prn - avoid opiates and NSAIDs - Dermatology UTD 2023 - Due for annual flu shot IBD Health Maintenance (updated periodically) (1) Colonoscopy / Colon cancer surveillance: -Colonic disease: [facility] -Date of IBD dx: age 24 (2) Tobacco use: none (3) Vaccinations: -Flu: due now Recommend annually -COVID: Had three times, last [...] yo): N/A Current Immunizations Name Date Covid-19 Bivalent (Telcareirnat) 12yrs+ ([id number]) 09/05/2022 (4) Tuberculosis risk assessment: -Quantiferon: neg [...] (CTs): 40 minutes spent in chart review, [id number] time and coordination of care with the patient today. Follow up 4 months Janice Villarreal MD Gastroenterology and Hepatology 07/30/2024 9:49 AM Pager # [phone] documented in this encounter Plan of Treatment Not on file documented as of this encounter Visit Diagnoses Diagnosis Ulcerative pancolitis without complication- Primary Transaminitis Nonspecific elevation of levels of transaminase or lactic acid dehydrogenase (LDH) documented in this encounter Care Teams Dog Sitter Relationship Specialty Start Date End Date Pradeep Gallardo APRN PCP - General 07/19/10 08/04/24 documented as of this encounter
--- OUTSIDE RECORDS SUMMARY | 2024-09-05 16:50 | XMS_ITS | Encounter Summary ---
Author Organization [facility] Address [address] [place] [address] Care Team Providers Care Nutrition Director Name Role Phone Bartolo Landon MD Primary Care Provider [phone] Aria Thompson MD Primary Care Provider Encounter Details Date Type Department Care Team (Late st Contact Info) Description 11/06/2012 Historical Results Only [facility] - Main [address] [id number] [place] [address] [place] [address] Social History Tobacco Use Types [...] (11/06/2012) 11/06/2012 11/06/2012 14: 58 EDT Narrative [facility] - 11/12/2012 11:21 EDT ----- ------- Name: BRYSKYLA ? : [birth year] ?Age/Sex: 58/F ?Unit#: [id number] ? Loc: DI ?Status: REG CLI ?? Reg Date: 11/06/12 ? Pt.Phone Number: ? ----- ------- Specimen: [id number] ? STATUS: SOUT ?Spec Date:11/06/12 ? Physician Copies: ?Belen Mendosa MD ?? Tissues: A ?? THYROID FNA (LEFT) ? Trevor Mensah MD ?? CPT: 33351 ?? Units: ??1 ? [id number] ? 1 ? [id number] ? 1 ----- ------- ?? NON SR. UNIX SYSTEM ADMINISTRATOR CYTOLOGY DIAGNOSIS Thyroid, left, ultrasound guided fine [...] Sparse follicular cells, mostly blood. ??([facility] 11/06/12) ?Additional passes obtained, not screened on site. ----- ------- ? SPECIMEN DESCRIPTION ? 30ml pink cytolyt, 1TP, 6 alc, 6 air Signed ____(signature on file)____ Keisha Garcia M.D. 11/12/12 By the signature above, the attending physician certifies that he/she has personally conducted a gross and/or microscopic examination of the described specimens and rendered or confirmed the above diagnosis. Test Performed by [facility], [address] [place] [address] Gas Flow Regulator: Keisha Garcia MD PHD ----- ------- us Belen Mendosa MD PATHOLOGY ORDERABLES Final Re sult [facility] documented in this encounter Visit Diagnoses Not on filedocumented in this encounter Care Teams Nutrition Director Relationship Specialty Start Date End Date Bartolo Landon MD [address] [place] [phone] PCP - General 03/12/09 12/02/17 Aria Thompson MD [address] [place] [phone] PCP - General 12/03/17 06/26/24 documented as of this encounter
--- OUTSIDE RECORDS SUMMARY | 2024-09-05 16:50 | XMS_ITS | Encounter Summary ---
Author Organization [facility] Address [address] [place] [address] Care Team Providers Care Director Of Billing Name Role Phone Aria Thompson MD Primary Care Provider Encounter Details Date Type Department Care Team (Late st Contact Info) Description 05/26/2018 10:14 EDT - 05/26/2018 23:59 EDT Hospital Encounter [facility] Neurophysiology - [facility] ([place] [address]) [address] [place] [address] Unknown, Provider, Idris London MD PhD [address] [facility]. [address] [place] [phone] Discharge Disposition: Auto Discharge Social History Tobacco [...] on filedocumented in this encounter Care Teams Director Of Billing Relationship Specialty Start Date End Date Aria Thompson MD PCP - General 12/03/17 06/26/24 documented as of this encounter
--- OUTSIDE RECORDS SUMMARY | 2024-09-05 16:50 | XMS_ITS | Encounter Summary ---
Author Organization [facility] Address [address] [place] [address] Care Team Providers Care Roller Stainer Name Role Phone Aria Thompson MD Primary Care Provider Reason for Visit * Reason Onset Date Comments Appointment Related 01/16/2018 Encounter Details Date Type Department Care Team (Late st Contact Info) Description 01/16/2018 Telephone Vascular Surgery and Endovascular Therapy - [address] [phone] Everette Boggs MD 111 [facility], [address] [place] [address] Appointment Related Social History Tobacco [...] on filedocumented in this encounter Care Teams Roller Stainer Relationship Specialty Start Date End Date Aria Thompson MD PCP - General 12/03/17 06/26/24 documented as of this encounter
--- OUTSIDE RECORDS SUMMARY | 2024-09-05 16:50 | XMS_ITS | Encounter Summary ---
Author Organization [facility] Address [address] [place] [address] Care Team Providers Care Hooker Laster Name Role Phone Bartolo Landon MD Primary Care Provider [phone] Encounter Details Date Type Department Care Team (Late st Contact Info) Description 07/04/2005 Results Only [facility] - Maple conversion [address] [place] [address] Mandi Sawyer PA [address] [place], [place] [phone] Social History Tobacco Use Types Packs/Day Years [...] Associated Diagnosis Comments SURGICAL PATHOLOGY Routine 07/04/2005 0 :00 EST documented in this encounter Results * SURGICAL PATHOLOGY (07/04/2005 0:00 EST) Pathology Report: SURGICAL PATHOLOGY REPORT Reports generated via electronic interface contain original data; however they are lacking the format of the original report. Caution should be taken when reading/interpreting unformatted reports. Name: ? SKYLA LONDONO ? Accession #: ? [id number] ? : ? 1960 (Age: 44) ??F [...] ??There is no evidence of vasculitis. ??(Dr. Villa)/[facility] Microscopic Description: ? Sections consist of a [...] there is no evidence of vasculitis. (Dr. Villa)/[facility] Document reviewed and electronically signed by: SANDRA VILLA MD Report ??Date: 07/06/2005 15:49 By the signature above, the attending physician certifies that he/she has personally conducted a gross and/or microscopic examination of the described specimens and rendered or confirmed the above diagnosis. Specimen(s) Received: ? R hip Clinical History: ? Hx ??mild ulcerative colitis; urticaria Gross Description: ? Received in formalin labelled [place] and R hip is a punch biopsy of corea-pink skin measuring 0.3 cm in diameter and 0.2 cm in thickness. ??The specimen is submitted intact in one cassette. ??(Dr. Echols)/[facility] End of Report [facility] 07/04/2005 07/05/2005 13: 22 EST Mandi LOVE PATHOLOGY ORDERABLES Final Result Performing Organization Address City/State/[facility] Co de Phone Number [facility] [address] [place] [address] documented in this encounter Visit Diagnoses Not on filedocumented in this encounter Care Teams Hooker Laster Relationship Specialty Start Date End Date Bartolo Landon MD [address] [place] [address] PCP - General 03/12/09 12/02/17 documented as of this encounter
--- OUTSIDE RECORDS SUMMARY | 2024-09-05 16:51 | XMS_ITS | Encounter Summary ---
[place] [address] Care Team Providers Care Venue Manager Name Role Phone Pradeep Gallardo APRN [...] on filedocumented in this encounter Care Teams Venue Manager Relationship Specialty Start Date End Date Pradeep Gallardo APRN PCP - General 07/19/10 08/04/24 documented as of this encounter
--- OUTSIDE RECORDS SUMMARY | 2024-09-05 16:51 | XMS_ITS | Encounter Summary ---
Author Organization [facility] [place] [place] [address] Care Team Providers Care Reweaver Name Role Phone Paulina Pradeep Swartz APRN Primary Care Provider [phone] Reason for Visit * Auth/Cert (Routine) Specialty Diagnoses / Procedures Referred By Contac t Referred To Contact Diagnoses Ulcerative (chronic) pancolitis without complications extensive UC Procedures PRO COLONOSCOPY, DIAGNOSTIC PRO COLONOSCOPY, REMV LESN, SNARE PRO COLONOSCOPY, BIOPSY PRO COLONOSCOPY, REMV LESN, SNARE PRO COLONOSCOPY, BIOPSY COLONOSCOPY, DIAGNOSTIC (WRVU 3.26) James Bobo MD [facility] [place] [address] [facility] Referral ID Status Reason Start Date Expiration Date Visits Re quested Visits Authorized [id number] 1 1 Encounter Details Date Type Department Care Team (Late st Contact Info) Description 10/09/2023 11:00 AM EST - 10/09/2023 12:00 PM EST Surgery [place] [address] James Bobo MD [facility] [place] [address] COLONOSCOPY FLEXIBLE, WITH BX (WRVU 3.56) Social [...] occurs, please contact your Doctor. Please call [phone] before 8pm Mon-Fri with problems, questions or concerns. If you call after 8pm or on weekends, call the Hospital at [phone] and ask to speak to the Extract Puller wireless consultant and the chemical process operator will contact that person for you. When should you call for help? Call [phone] anytime you think you may need emergency [...] After Visit Summary and more online at [email or web address] If you would like to provide feedback about your hospital experience, please call the Office of Patient and Family Relations at . If you have received this After Visit Summary in error, please immediately return it in person to the department, or notify the [facility] Privacy Office by calling toll free at between the hours of 8AM and 5PM to arrange for our retrieval of the documents at no cost to you. Content Version: 12.2 ?? [id number] [employer]. Care instructions adapted under license by [employer]. If you have questions about a medical condition or this instruction, always ask your healthcare professional. [employer] disclaims any warranty or liability for your [...] 3 06/13/2023 documented as of this encounter H&P Notes [...] Routine 10/09/2023 11:00 AM EST Colonoscopy, Biopsy ([id number]) 10/09/2023 10:42 AM EST Ulcerative pancolitis without complication COLONOSCOPY Routine 10/09/2023 9:59 AM EST documented in this encounter Results * Specimen to Pathology (10/09/2023 11:06 AM EST) AP Specimen 10/09/2023 11:0 6 AM EST 10/09/2023 11:06 AM EST Narrative [facility] - 10/09/2023 11:06 AM EST Specimen requisition ordered. ??Separate Pathology report to follow James Bobo MD PATHOLOGY/CYTOLOGY O VERONICA Performing Organization Address City/State/[facility] Co de Phone Number [facility] [place] [address] * Surgical Pathology Report (10/09/2023 11:00 AM EST) Final Diagnosis [id number] ? Location: 4T; EA09; A The signing pathologist has (i) examined the relevant preparation(s) for the specimen(s) and (ii) rendered or confirmed the diagnosis(es). . ?Surgical Pathology DIAGNOSIS A - Random colon r/o dysplasia, biopsy: - ??Colonic mucosa with mild architectural disarray, negative for dysplasia. CR-PX Electronically signed by: ?Escobar Lovelace MD Verified: ??10/17/2023 15:49 ??Pathologist Performed at: ??-[facility] Dept. of [place]ology, [place] [address] Auto Clocks Repairer: Bird Jarvis MD, FCAP, ??CLIA Certificate: [id number] SPECIMEN(S) SUBMITTED A - random colon r/o dysplasia, biopsy (1) CLINICAL INFORMATION 62-year-old female with history of colitis, normal-appearing colon SPECIMEN PROCESSING A - Labeled/Fixative: Random colon rule out dysplasia, formalin. Quantity/Size: Multiple, averaging 0.3 cm. Tissue Description: Soft, pink tissues. Sections/Processi ng: Submitted in toto ??in 3 cassettes labeled A1-A3. ??sns 10/17/2023 3:[address] [facility] GI Biopsy 10/09/2023 11:0 0 AM EST 10/09/2023 11:00 AM EST James Bobo MD PATHOLOGY/CYTOLOGY O RDERABLES [facility] [place] [id number] [facility] [address] * COLONOSCOPY (10/09/2023 9:59 AM EST) COLONOSCOPY [facility] Endoscopy Procedure Date: 10/09/2023 9:59 AM ? Patient Name: Elsa Lujan ? Date of : 1960 ? Age: 62 ? Order #: [id number] ? Instrument Name: [id number] ? Procedure: ? Colonoscopy Indications: ? Pt with UC, Asx now on IFX Providers: ? James Bobo MD, Tiffanie Richardson ? Nils Millan Referring : ?Aria Thompson MD Medicines: ? Midazolam 4 [...] preparation was evaluated ? using the BBPS (Silentium Bowel ? Preparation Scale) with scores of: [...] RN) documented in this encounter Care Teams Reweaver Relationship Specialty Start Date End Date Pradeep Gallardo APRN PCP - General 07/19/10 08/04/24 documented as of this encounter
--- OUTSIDE RECORDS SUMMARY | 2024-09-05 16:51 | XMS_ITS | Encounter Summary ---
Author Organization [facility] [place] [address] Care Team Providers Care Metal Trades Instructor Name Role Phone Pradeep Gallardo APRN Primary Care Provider [phone] Encounter Details Date Type Department Care Team (Late st Contact Info) Description 10/12/2023 [place] [phone] Claire Phillips RN Social History Tobacco Use [...] filedocumented in this encounter Care Teams Metal Trades Instructor Relationship Specialty Start Date End Date Pradeep Gallardo APRN PCP - General 07/19/10 08/04/24 documented as of this encounter
--- OUTSIDE RECORDS SUMMARY | 2024-09-05 16:51 | XMS_ITS | Encounter Summary ---
Author Organization [facility] Luis [facility] [place] [address] Care Team Providers Care Room Service Supervisor Name Role Phone Pradeep Gallardo APRN Primary Care Provider [phone] Encounter Details Date Type Department Care Team (Late st Contact Info) Description 03/16/2023 Telephone [place] [phone] Jenise Mooney Social History Tobacco Use Types [...] on filedocumented in this encounter Care Teams Room Service Supervisor Relationship Specialty Start Date End Date Pradeep Gallardo APRN PCP - General 07/19/10 08/04/24 documented as of this encounter
--- OUTSIDE RECORDS SUMMARY | 2024-09-05 16:51 | XMS_ITS | Encounter Summary ---
Author Organization [facility] [place] [address] Care Team Providers Care Neurosurgeon Name Role Phone Pradeep Gallardo APRN Primary Care Provider [phone] Reason for Visit * Reason Onset Date Comments Medication Refill 10/16/2022 Encounter Details Date Type Department Care Team (Late st Contact Info) Description 10/16/2022 Refill [place] [address] Janice Villarreal MD [facility] [place] [address] Ulcerative pancolitis with complication Social History Tobacco [...] complication documented in this encounter Care Teams Neurosurgeon Relationship Specialty Start Date End Date Pradeep Gallardo APRN PCP - General 07/19/10 08/04/24 documented as of this encounter
--- OUTSIDE RECORDS SUMMARY | 2024-09-05 16:51 | XMS_ITS | Encounter Summary ---
Author Organization [facility] Address [facility] [place] [address] Care Team Providers Care Farmworker Machine Name Role Phone Paulina Pradeep Swartz APRN Primary Care Provider Encounter Details Date Type Department Care Team (Late st Contact Info) Description 07/04/2023 Telephone [place] [phone] Thalia Monahan Social History Tobacco Use Types [...] - 07/04/2023 10:29 AM EST Elsa Tai [id number] Diagnosis/Indication: Ulcerative pancolitis without complication [K51.00] Please [...] procedure? No You must have a responsible green party who will drive you to your procedure, stay on campus for the entire duration of your procedure, and drive you home from your procedure. Who will likely be your trolley coach driver for the procedure? *Patient must be scheduled for Anesthesia support if BMI is 40 or above* Height: 5'1 Weight: 140 BMI: 26.4 Age:62 y.o. documented in this encounter Plan of Treatment Not on file documented as of this encounter Visit Diagnoses Not on filedocumented in this encounter Care Teams Farmworker Machine Relationship Specialty Start Date End Date Pradeep Gallardo APRN PCP - General 07/19/10 08/04/24 documented as of this encounter
--- OUTSIDE RECORDS SUMMARY | 2024-09-05 16:51 | XMS_ITS | Encounter Summary ---
Author Organization [facility] [place] [address] Care Team Providers Care Principal Statistical Programmer Name Role Phone Pradeep Gallardo APRN Primary Care Provider Encounter Details Date Type Department Care Team (Late st Contact Info) Description 01/04/2023 11:00 AM EDT Office Visit [place] [address] Bijan Villarreal MD [facility] [place] [address] Ulcerative pancolitis without complication Social History Tobacco [...] original note were not included. [facility] Division of Gastroenterology and Hepatology History of Present Illness: Elsa Lujan??62F w/ PMH of??extensive colitis??c/b hospitalization 07/2022 following up in GI clinic. Interval Events: -Just came back from [place] to see son. Had a lot of fun. Plans to go to [place] this fall, otherwise mostly around this summer. Will be receiving an award from her former work place in January, but decided to go to [facility] [employer] to learn about [employer] so will have friend receive for her. [...] improvements GI History: Patient transferred care from [place] (history below). Well-controlled ulcerative colitis until April [...] Component Value Date/Time CALCIUM 7.9 (L) 08/14/2022 05 ALKPHOS 47 08/14/2022 0512 AST 12 08/14/2022 [...] worried about life long medication. I did drapery counselor that I would recommend continuing this [...] Villarreal MD Fellow in Gastroenterology [place] [address] P: [phone] F: [phone] CC Aria Thompson MD [address] [place] [address] * Hermila East MD - 01/04/2023 11:00 AM EDT ATTENDING ATTESTATION: I have discussed the patient with the GI fellow, Dr. Villarreal and I agree with the fellow's findings, assessment, and plan as written. Hermila East MD Gastroenterology attending Pager [phone] documented in this encounter Miscellaneous Notes * [...] Procedure Name Priority Date/Time Associated Diagnosis Comments CRP, ACUTE INFLAMMATION Routine 01/04/2023 11:45 AM EDT Ulcerative pancolitis without complication HEMOGRAM Routine 01/04/2023 11:45 AM EDT Ulcerative pancolitis without complication DIFFERENTIAL, AUTOMATED Routine 01/04/2023 11:45 AM EDT Ulcerative pancolitis without complication VITAMIN D, 25-HYDROXY Routine 01/04/2023 11:45 AM EDT Ulcerative pancolitis without complication HC CBC,PLT & AUTO DIFF Routine 01/04/2023 11:45 AM EDT Ulcerative pancolitis without complication VARICELLA ZOSTER ANTIBODY, IGG Routine 01/04/2023 11:45 AM EDT Ulcerative pancolitis without complication FOLATE, SERUM Routine 01/04/2023 11:45 AM EDT Ulcerative pancolitis without complication VITAMIN B12 Routine 01/04/2023 11:45 AM EDT Ulcerative pancolitis without complication BASIC METABOLIC PANEL Routine 01/04/2023 11:45 AM EDT Ulcerative pancolitis without complication documented in this encounter Results * (ABNORMAL) Differential, Automated (01/04/2023 11:45 AM EDT) Neutrophil % 30.4 % [facility] Neutrophil Absolute 1.24(L) 1.70 - 6.10 x10(3)/mc L [facility] Lymph % 53.7 % [facility] Lymphocytes Abs 2.2 0.9 - 3.2 x10(3)/mc L [facility] Monocyte % 11.5 % [facility] Monocyte Abs 0.5 0.3 - 0.9 x10(3)/mc L [facility] Eos % 2.9 % [facility] Eosinophils Abs 0.1 0.0 - 0.4 x10(3)/mc L [facility] Basophil % 1.5 % [facility] Baso Absolute 0.1 0.0 - 0.1 x10(3)/mc L [facility] Immature Gran % 0.00 % [facility] Comment: Immature granulocytes(IG's)percentage and absolute count will include metamyelocytes, myelocytes, and promyelocytes. Blood smears from CBCs yielding IG's will be scanned manually for concordance. If this scan disagrees with the automated IG or if promyelocytes are noted, a manual differential will be performed. Immature Gran Absolute 0.00 0.00 - 0.04 x10(3)/mc L [facility] Blood 01/04/2023 11:4 5 AM EDT 01/04/2023 12:07 PM EDT Narrative Resulting Agency Comment Spec In Lab Bijan Villarreal MD HEMATOLOGY ORDERABLE S [facility] [place] [address] * (ABNORMAL) Hemogram (01/04/2023 11:45 AM EDT) White Blood Cell 4.1 4.0 - 9.5 x10(3)/mc L [facility] Red Blood Cell 3.96(L) 4.00 - 5.21 x10(6)/mc L [facility] Hemoglobin 10.3(L) 11.7 - 15.5 g/dL [facility] Hematocrit 31.0(L) 35.7 - 45.8 % [facility] Mean Cell Volume 78.3(L) 82.6 - 94.4 fL [facility] Mean Cell Hemoglobin 26.0(L) 27.1 - 32.0 pg [facility] Mean Cell Hemoglobin Concentration 33.2 31.7 - 35.0 g/dL [facility] Platelet 389(H) 145 - 357 x10(3)/mc L [facility] RDW Standard Deviation 55.2(H) 37.0 - 46.0 fL [facility] RDW coefficient of variation 19.2(H) 11.5 - 14.1 % [facility] Mean Platelet Volume 9.3 7.6 - 12.9 fL [facility] NRBC% auto 0.0 % [facility] NRBC Absolute 0.000 0.000 - 0.000 x10(3)/mc L [facility] Blood 01/04/2023 11:4 5 AM EDT 01/04/2023 12:07 PM EDT Narrative Resulting Agency Comment Spec In Lab Bijan Villarreal MD HEMATOLOGY ORDERABLE S [facility] [place] [address] * Folate, serum (01/04/2023 11:45 AM EDT) Folate >20.0 4.8 - 24.2 ng/mL [facility] Blood 01/04/2023 11:4 5 AM EDT 01/04/2023 12:07 PM EDT Narrative Resulting Agency Comment Spec In Lab Hermila East MD CHEMISTRY ORDERAB LES Performing Organization Address City/[facility]/ZIP Co de Phone Number [facility] [place] [address] * (ABNORMAL) Vitamin B12 (01/04/2023 11:45 AM EDT) Vitamin B12 >2,000(H) 232 - 1,245 pg/mL [facility] Blood 01/04/2023 11:4 5 AM EDT 01/04/2023 12:07 PM EDT Narrative Resulting Agency Comment Spec In Lab Hermila East MD CHEMISTRY ORDERAB LES Performing Organization Address [facility] Co de Phone Number [facility] [place] [address] * Vitamin D, 25-Hydroxy (01/04/2023 11:45 AM EDT) Vitamin D Total 25 OH 65 21 - 100 ng/mL [facility] Vit D Interp Sufficient [facility] Blood 01/04/2023 11:4 5 AM EDT 01/04/2023 12:07 PM EDT Narrative Resulting Agency Comment Spec In Lab Hermila East MD CHEMISTRY ORDERAB LES Performing Organization Address City/[facility]/ZIP Co de Phone Number [facility] [place] [address] * CRP, acute inflammation (01/04/2023 11:45 AM EDT) C-Reactive Protein <3.0 <=4.9 mg/L [facility] Blood 01/04/2023 11:4 5 AM EDT 01/04/2023 12:07 PM EDT Narrative Resulting Agency Comment Spec In Lab Hermila East MD CHEMISTRY ORDERAB LES Performing Organization Address City/[facility]/ZIP Co de Phone Number [facility] [place] [address] * (ABNORMAL) Basic Metabolic Panel (non-fasting) (01/04/2023 11:45 AM EDT) Glucose 95 65 - 199 mg/dL [facility] Comment:Diabetes: >=200 mg/d L plus symptoms Blood Urea Nitrogen 13 8 - 18 mg/dL [facility] Creatinine 0.61(L) 0.70 - 1.20 mg/dL [facility] Sodium 130(L) 135 - 145 mmol/L [facility] Potassium 4.3 3.5 - 5.0 mmol/L [facility] Comment: Please note: ??Patients with WBC >100,000 may have falsely elevated Potassium levels. ??For accurate Potassium quantification in these patients send serum separator tube (gold top) for subsequent determinations. ??Contact the Clinical Chemistry Laboratory if there are any questions. Chloride 96(L) 98 - 107 mmol/L [facility] Carbon Dioxide 27 22 - 31 mmol/L [facility] Anion Gap 7 5 - 15 mmol/L [facility] Calcium 9.0 8.5 - 10.5 mg/dL [facility] Est Glomerular Filtration Rate 100 >=60 mL/min/1. 73 m?? [facility] Comment: This patient's estimated GFR [...] Lab Hermila East MD CHEMISTRY ORDERAB LES [facility] [place] [address] * Varicella zoster Antibody, IgG (01/04/2023 11:45 AM EDT) Varicella Zoster Antibody IgG Positive Positive [facility] Comment: A positive result for this assay is considered to be an indicator of positive immune status. Blood 01/04/2023 11:4 5 AM EDT 01/04/2023 12:53 PM EDT Narrative Resulting Agency Comment Spec In Lab Hermila East MD IMMUNOLOGY ORDERA BLES Performing Organization Address City/State/[facility] Co de Phone Number [facility] [place] [address] documented in this encounter Visit Diagnoses Diagnosis Ulcerative pancolitis without complication documented in this encounter Care Teams Principal Statistical Programmer Relationship Specialty Start Date End Date Pradeep Gallardo APRN PCP - General 07/19/10 08/04/24 documented as of this encounter
--- OUTSIDE RECORDS SUMMARY | 2024-09-05 16:51 | XMS_ITS | Encounter Summary ---
Author Organization [facility] [place] [address] Care Team Providers Care Ceo & Co Founder Name Role Phone Pradeep Gallardo APRN Primary Care Provider [phone] Encounter Details Date Type Department Care Team (Late st Contact Info) Description 10/06/2022 Orders [place] [address] [facility] [address] [place]STRO[place] [address] Ulcerative pancolitis with complication Social History Tobacco [...] complication documented in this encounter Care Teams Ceo & Co Founder Relationship Specialty Start Date End Date Pradeep Gallardo APRN PCP - General 07/19/10 08/04/24 documented as of this encounter
--- OUTSIDE RECORDS SUMMARY | 2024-09-05 16:51 | XMS_ITS | Encounter Summary ---
Author Organization Formerly [facility] Address [facility] [place] [address] Care Team Providers Care Meter And Regulator Shop Supervisor Name Role Phone Paulina Pradeep Swartz APRN Primary Care Provider [phone] Reason for Visit * Auth/Cert (Routine) Specialty Diagnoses / Procedures Referred By Contac t Referred To Contact Diagnoses Ulcerative (chronic) pancolitis without complications extensive UC Procedures PRO COLONOSCOPY, DIAGNOSTIC PRO COLONOSCOPY, REMV LESN, SNARE PRO COLONOSCOPY, BIOPSY PRO COLONOSCOPY, REMV LESN, SNARE PRO COLONOSCOPY, BIOPSY COLONOSCOPY, DIAGNOSTIC (WRVU 3.26) James Bobo MD [facility] [place] [address] [facility] Referral ID Status Reason Start Date Expiration Date Visits Re quested Visits Authorized [id number] 1 1 Encounter Details Date Type Department Care Team (Latest Contact Info) Description 10/09/2023 9:45 AM EST - 10/09/2023 12:[address] [facility] Hospital [place] [address] James Bobo MD [facility] [address] Discharge Disposition: Home Social History Tobacco Use [...] occurs, please contact your Doctor. Please call [phone] before 8pm Mon-Fri with problems, questions or concerns. If you call after 8pm or on weekends, call the Hospital at [phone] and ask to speak to the Biochemistry Specialist construction specialist and the studio camera operator will contact that person for you. When should you call for help? Call [phone] anytime you think you may need emergency [...] After Visit Summary and more online at [email or web address] If you would like to provide feedback [...] cost to you. Content Version: 12.2 ?? [id number] [employer]. Care instructions adapted under license by [facility]. If you have questions about a medical condition or this instruction, always ask your healthcare professional. [employer] disclaims any warranty or liability for your [...] Routine 10/09/2023 11:00 AM EST Colonoscopy, Biopsy ([id number]) 10/09/2023 10:42 AM EST Ulcerative pancolitis without complication COLONOSCOPY Routine 10/09/2023 9:59 AM EST documented in this encounter Results * Specimen to Pathology (10/09/2023 11:06 AM EST) AP Specimen 10/09/2023 11:0 6 AM EST 10/09/2023 11:[address] [facility] - 10/09/2023 11:06 AM EST Specimen requisition ordered. ??Separate Pathology report to follow James Bobo MD PATHOLOGY/CYTOLOGY O RDERAJOSE Performing Organization Address City/State/[facility] Co de Phone Number [facility] [place] [address] * Surgical Pathology Report (10/09/2023 11:00 AM EST) Final Diagnosis [id number] ? Location: 4T; EA09; A The signing pathologist has (i) examined the relevant preparation(s) for the specimen(s) and (ii) rendered or confirmed the diagnosis(es). . ?Surgical Pathology DIAGNOSIS A - Random colon r/o dysplasia, biopsy: - ??Colonic mucosa with mild architectural disarray, negative for dysplasia. CR-PX Electronically signed by: ?[place] VENTURA, Escobar Verified: ??10/17/2023 15:49 ??Pathologist Performed at: ??-[facility] Dept. of [place]ology, [place] [address] Digital Associate Media Director: Bird Jarvis MD, FCAP, ??CLIA Certificate: [id number] SPECIMEN(S) SUBMITTED A - random colon r/o dysplasia, biopsy (1) CLINICAL INFORMATION 62-year-old female with history of colitis, normal-appearing colon SPECIMEN PROCESSING A - Labeled/Fixative: Random colon rule out dysplasia, formalin. Quantity/Size: Multiple, averaging 0.3 cm. Tissue Description: Soft, pink tissues. Sections/Processi ng: Submitted in toto ??in 3 cassettes labeled A1-A3. ??sns 10/17/2023 3:49 PM EST [facility] GI Biopsy 10/09/2023 11:0 0 AM EST 10/09/2023 11:00 AM EST James Bobo MD PATHOLOGY/CYTOLOGY O RDERABLES [facility] [address] [place] [address] * COLONOSCOPY (10/09/2023 9:59 AM EST) COLONOSCOPY [facility] Procedure Date: 10/09/2023 9:59 AM ? Patient Name: Elsa Lujan ? Date of : 1960 ? Age: 62 ? Order #: [id number] ? Instrument Name: [id number] ? Procedure: ? Colonoscopy Indications: ? Pt [...] preparation was evaluated ? using the BBPS (PenteoSurround Bowel ? Preparation Scale) with scores of: [...] Millan RN)1054 (Given - Provider: Tiffanie Millan, RN) midazolam (pf) (Versed) (1 mg/mL) multi-dose injection (CANCELED) PRN, Starting on Sun10/09/23 at 1048, Until Sun10/09/23 at 1413, Intra-Operative (Intra-Procedure), Routine 1048 (Given - Provid er: Tiffanie Millan RN)1051 (Given - Provider: Tiffanie Millan, RN)1054 (Given - Provider: Tiffanie Millan RN)1058 (Given - Provider: Tiffanie Millan, RN) documented in this encounter Care Teams Meter And Regulator Shop Supervisor Relationship Specialty Start Date End Date Pradeep Gallardo APRN PCP - General 07/19/10 08/04/24 documented as of this encounter
--- OUTSIDE RECORDS SUMMARY | 2024-09-05 16:51 | XMS_ITS | Encounter Summary ---
Author Organization [facility] [place] [address] Care Team Providers Care Shopper Name Role Phone Pradeep Gallardo APRN Primary Care Provider [phone] Reason for Referral * Diagnostic Test (Routine) - Pending Review Specialty Diagnoses / Procedures Referred By Contac t Referred To Contact Radiology Diagnoses Transaminitis Procedures MRI Cholangiopancreatography WO Contrast Janice Villarreal MD [facility] [place] [address] [place] [address] Referral ID Status Reason Start Date Expiration Date Visits Requested Visits Authorized [id number] Pending Review Specialty Service Requested 12/26/2023 06/27/2025 1 1 Encounter Details Date Type Department Care Team (Late st Contact Info) Description 12/26/2023 1:00 PM EDT Office [place] [address] Janice Villarreal MD [facility] [place] [address] Ulcerative pancolitis without complication (Primary [...] from the original note were not included. [facility] Division of Gastroenterology and Hepatology History [...] -recovering from the flu, had it in [place] in October 2031. Took a few weeks [...] N/V. GI History: Patient transferred care from [place] (history below). Well-controlled ulcerative colitis until April [...] negative SMA/AMA. IgG normal. I will repeat TORRES here toascertain reflex antibody testing results, as [...] Immunizations Name Date Pfizer Covid-19 Bivalent 12Yrs+ (Ovra Cap 30mcg) 09/05/2022 (4) Tuberculosis risk assessment: [...] (CTs): 45 minutes spent in chart review, dbim-an-ryaq time and coordination of care with the patient today. Follow up 6 months Janice Villarreal MD Gastroenterology and Hepatology 12/26/2023 1:44 PM Pager # [phone] documented in this encounter Plan of Treatment [...] Contrast (01/17/2024 9:20 AM EDT) WORKSTATION ID [id number] RAD Anatomical Region Laterality Modality Magnetic Resonan ce Impressions 01/17/2024 11:00 AM EDT No stricture or beading to suggest PSC. Thank you for letting us participate in the care of this patient. ??If you are a health care provider and have any questions regarding this report, please contact the number below. ??For patients who have questions please contact the health resident care manager that requested your imaging first. ? Narrative [...] patients who have questions please contactthe health resident care manager that requested your imaging first. Janice Villarreal MD IMG MRI ORDERABLES * Mitochondrial Antibody, M2 (12/26/2023 2:09 PM EDT) Mitochon Ab (DECEMBER) <0.1 <0.1 (Negative) U [facility] Comment: Test Performed by: [facility] [place] [address] Horse Stud Manager: Basil Retana M.D. Ph.D.; CLIA# [id number] Blood 12/26/2023 2:09 PM EDT 12/26/2023 3:55 PM EDT Narrative Resulting Agency Comment Spec In Lab Janice Villarreal MD LAB SEND OUT ORDERAB LES [facility] [place] [address] * Smooth Muscle Antibody (12/26/2023 2:09 PM EDT) Sm Muscle Ab (DECEMBER) Negative Negative M [facility] Comment: Negative: No further testing will be performed ADDITIONAL INFORMATION This test was developed and its performance characteristics determined by [facility] in a manner consistent with CLIA requirements. This test has not been cleared or approved by the U.S. Food and Drug Administration. Test Performed by: [facility] [address] [place] [address] Horse Stud Manager: Basil Retana M.D. Ph.D.; CLIA# [id number] Blood 12/26/2023 2:09 PM EDT 12/26/2023 3:55 PM EDT Narrative Resulting Agency Comment Spec In Lab Janice Villarreal MD LAB SEND OUT ORDERAB LES [facility] [place] [address] * (ABNORMAL) Comprehensive metabolic panel (non-fasting) (12/26/2023 2:08 PM EDT) Glucose 104 65 - 199 mg/dL [facility] Comment:Diabetes: >=200 mg/d L plus symptoms Blood Urea Nitrogen 11 8 - 18 mg/dL [facility] Creatinine 0.62(L) 0.70 - 1.20 mg/dL [facility] Sodium 127(L) 135 - 145 mmol/L [facility] Potassium 4.1 3.5 - 5.0 mmol/L [facility] Comment: Please note: ??Patients with WBC >100,000 may have falsely elevated Potassium levels. ??For accurate Potassium quantification in these patients send serum separator tube (gold top) for subsequent determinations. ??Contact the Clinical Chemistry Laboratory if there are any questions. Chloride 89(L) 98 - 107 mmol/L [facility] Carbon Dioxide 28 22 - 31 mmol/L [facility] Anion Gap 10 5 - 15 mmol/L [facility] Calcium 9.6 8.5 - 10.5 mg/dL [facility] Protein, Total 7.0 6.1 - 8.0 g/dL [facility] Albumin 4.7 3.2 - 5.2 g/dL [facility] Aspartate Aminotransferase 39(H) 0 - 30 unit/L [facility] Alanine Aminotransferase 60(H) 0 - 30 unit/L [facility] Alkaline Phosphatase 89 35 - 105 unit/L [facility] Bilirubin, Total 0.3 0.2 - 1.3 mg/dL [facility] Est Glomerular Filtration Rate 99 >=60 mL/min/1. 73 m?? [facility] Comment: This patient's [...] Villarreal MD CHEMISTRY ORDERABLES Performing Organization Address City/State/[facility] Co de Phone Number [facility] [place] [address] documented in this encounter Visit Diagnoses Diagnosis Ulcerative pancolitis without complication- Primary Transaminitis Nonspecific elevation of levels of transaminase or lactic acid dehydrogenase (LDH) Transaminitis Nonspecific elevation of levels of transaminase or lactic acid dehydrogenase (LDH) documented in this encounter Care Teams Shopper Relationship Specialty Start Date End Date Pradeep Gallardo APRN PCP - General 07/19/10 08/04/24 documented as of this encounter
--- OUTSIDE RECORDS SUMMARY | 2024-09-05 16:51 | XMS_ITS | Encounter Summary ---
Author Organization [facility] [place] [address] Care Team Providers Care Shopping Investigator Name Role Phone Pradeep Gallardo APRN Primary Care Provider [phone] Encounter Details Date Type Department Care Team (Late st Contact Info) Description 06/13/2023 11:30 AM EDT Office [place] [phone] Janice Villarreal MD [facility] [place] [address] Ulcerative pancolitis with complication (Primary Dx); Urinary [...] from the original note were not included. [facility] Division of Gastroenterology and Hepatology History of [...] NSAIDs GI History: Patient transferred care from [place] (history below). Well-controlled ulcerative colitis until April [...] still not scheduled. [facility] - DEXA due, not yet done by [...] (CTs): 45 minutes spent in chart review, [id number]-wy-[id number] time and coordination of care with the patient today. Follow up 6 months Janice Villarreal MD Gastroenterology and Hepatology 06/13/2023 11:38 AM Pager # [phone] documented in this encounter Plan of Treatment Not on file documented as of this encounter Results * Vitamin D, 25-Hydroxy (06/13/2023 12:11 PM EDT) Vitamin D Total 25 OH 72 21 - 100 ng/mL [facility] Vit D Interp Sufficient [facility] Blood 06/13/2023 12:1 1 PM EDT 06/13/2023 12:19 PM EDT Narrative Resulting Agency Comment Spec In Lab Janice Villarreal MD CHEMISTRY ORDERABLES Performing Organization Address City/[facility]/ZIP Co de Phone Number [facility] [place] [address] * CRP, acute inflammation (06/13/2023 12:11 PM EDT) C-Reactive Protein 3.4 <=4.9 mg/L [facility] Blood 06/13/2023 12:1 1 PM EDT 06/13/2023 12:19 PM EDT Narrative Resulting Agency Comment Spec In Lab Janice Villarreal MD CHEMISTRY ORDERABLES [facility] [place] [address] documented in this encounter Visit Diagnoses Diagnosis Ulcerative pancolitis with complication- Primary Urinary frequency documented in this encounter Care Teams Shopping Investigator Relationship Specialty Start Date End Date Pradeep Gallardo APRN PCP - General 07/19/10 08/04/24 documented as of this encounter
--- OUTSIDE RECORDS SUMMARY | 2024-09-05 16:51 | XMS_ITS | Encounter Summary ---
Author Organization [facility] [place] [address] Care Team Providers Care Licensed Veterinary Technician Name Role Phone Pradeep Gallardo APRN Primary Care Provider [phone] Encounter Details Date Type Department Care Team (Late st Contact Info) Description 06/21/2023 Telephone [place] [phone] Jay Tom RN Social History Tobacco Use [...] RN - 06/21/2023 9:29 AM EDT Called [facility] to verify dates of last infusions Patient received Remicade on 03/15/23 and 05/10/23 Next infusion scheduled for 07/05/23 This means IFX level drawn 06/13/23 was done 5 weeks after last infusion. Dr. Villarreal informed documented in this encounter Plan of Treatment Not on file documented as of this encounter Visit Diagnoses Not on filedocumented in this encounter Care Teams Licensed Veterinary Technician Relationship Specialty Start Date End Date Pradeep Gallardo APRN PCP - General 07/19/10 08/04/24 documented as of this encounter
--- OUTSIDE RECORDS SUMMARY | 2024-09-05 16:51 | XMS_ITS | Encounter Summary ---
Author Organization [facility] Address [facility] Jose Luis [facility] [place] [address] Care Team Providers Care Civil Engineering Technician Name Role Phone Pradeep Gallardo APRN Primary Care Provider Encounter Details Date Type Department Care Team (Late st Contact Info) Description 07/30/2023 Telephone [place] [phone] Janice Villarreal MD [facility] DR [place]STRO[place] [address] Social History Tobacco Use Types Packs/Day Years [...] and Hepatology 07/30/2023 11:36 AM Pager # [phone] documented in this encounter Plan of Treatment Scheduled Orders Name Type Priority Associated Diagnoses Orde r Schedule Hepatic Function Panel Lab Routine Transaminitis Every 4 Weeks for 4 Occurrences starting 07/30/2023 until 07/30/2024 documented as of this encounter Visit Diagnoses Diagnosis Transaminitis Nonspecific elevation of levels of transaminase or lactic acid dehydrogenase (LDH) documented in this encounter Care Teams Civil Engineering Technician Relationship Specialty Start Date End Date Pradeep Gallardo APRN PCP - General 07/19/10 08/04/24 documented as of this encounter
--- OUTSIDE RECORDS SUMMARY | 2024-09-05 16:51 | XMS_ITS | Encounter Summary ---
Author Organization [facility] [place] [address] Care Team Providers Care Street Cleaner Name Role Phone Paulina rPadeep Swartz APRN Primary Care Provider [phone] Encounter Details Date Type Department Care Team (Late st Contact Info) Description 08/18/2022 Telephone [place] [phone] Jeanette Franco RN Social History Tobacco Use [...] code to sign up for [facility] [place] documented in this encounter Plan of Treatment Not on file documented as of this encounter Visit Diagnoses Not on filedocumented in this encounter Care Teams Street Cleaner Relationship Specialty Start Date End Date Pradeep Gallardo APRN PCP - General 07/19/10 08/04/24 documented as of this encounter
--- OUTSIDE RECORDS SUMMARY | 2024-09-05 16:51 | XMS_ITS | Encounter Summary ---
Author Organization [facility] [place] [address] Care Team Providers Care Handkerchief Maker Name Role Phone Pradeep Gallardo APRN Primary Care Provider Encounter Details Date Type Department Care Team (Late st Contact Info) Description 06/13/2023 Telephone [place] [phone] Abby Baer RN Social History Tobacco Use [...] - 06/18/2023 8:14 AM EDT Contacted by trade union secretaryRebecca, stating that patient is on the phone. Patient was following up on phone conversation from last week, patient was not able to leave enough urine for lab sample and was asking if she could do this at her local hospital [facility] in [facility]. Asked trade union secretary to make patient aware that this video game script writer will contact her once Dr. Villarreal has advised. * Telephone Encounter - Abby Baer RN - 06/13/2023 2:36 PM EDT Contacted by trade union secretary, Rose, stating that the lab was on the line stating that the quantity wasn't sufficient for a urine test . This video game script writer called patient who had already left the hospital, but was aware of above information asshe was not able to produce another urine prior to leaving. Patient is asking if she would be able to bring a urine specimen to [facility] in [facility]? Made patient aware that this video game script writer will send this to Dr. Villarreal for her to review and advise. Patient verbalized understanding and will wait to hear back from our office. documented in this encounter Plan of Treatment Not on file documented as of this encounter Visit Diagnoses Diagnosis Urinary frequency documented in this encounter Care Teams Handkerchief Maker Relationship Specialty Start Date End Date Pradeep Gallardo APRN PCP - General 07/19/10 08/04/24 documented as of this encounter
--- OUTSIDE RECORDS SUMMARY | 2024-09-05 16:51 | XMS_ITS | Encounter Summary ---
Author Organization [facility] [place] [address] Care Team Providers Care Monitoring Coordinator Name Role Phone Pradeep Gallardo APRN Primary Care Provider [phone] Encounter Details Date Type Department Care Team (Late st Contact Info) Description 09/05/2023 Notes [place] [phone] Jeanette Franco RN Social History Tobacco Use [...] AM EST Orders for Remicade faxed to [facility] for 5mg/kg every 8 weeks. Decreased from 10mg/kg due to elevated LFT's and Elsa's preference. documented in this encounter Plan of Treatment Not on file documented as of this encounter Visit Diagnoses Not on filedocumented in this encounter Care Teams Monitoring Coordinator Relationship Specialty Start Date End Date Pradeep Gallardo APRN PCP - General 07/19/10 08/04/24 documented as of this encounter
--- OUTSIDE RECORDS SUMMARY | 2024-09-05 16:51 | XMS_ITS | Encounter Summary ---
Author Organization [facility] Address [facility] [place] [address] Care Team Providers Care Jinrikisha Driver Name Role Phone Pradeep Gallardo APRN Primary Care Provider Encounter Details Date Type Department Care Team (Late st Contact Info) Description 05/02/2023 Telephone [place] [phone] Janice Villarreal MD [facility] [place] [address] Social History Tobacco Use Types Packs/Day Years [...] and Hepatology 05/02/2023 2:43 PM Pager # [phone] documented in this encounter Plan of Treatment Not on file documented as of this encounter Results * (ABNORMAL) Infliximab Level (06/13/2023 12:11 PM EDT) Infliximab Level (MAY) Test ? Result [...] ?are greater than 5.0 mcg/mL, clinically relevant ?ectftzzeju-cw-ze fliximab are unlikely and reflex testing ?will not be performed. ? ---ADDITIONAL INFORMATION------- ?This test was developed and its performance characteristics ?determined by [facility] in a manner consistent with CLIA ?requirements. This test has not been cleared or approved by ?the U.S. Food and Drug Administration. ?Test Performed by: ?[facility] ?[address] [id number] ?Steam Oven Operator: Basil Retana M.D. Ph.D.; CLIA# [id number]) [facility] Blood 06/13/2023 12:1 1 PM EDT 06/13/2023 3:13 PM EDT Narrative Resulting Agency Comment Spec In Lab Janice Villarreal MD LAB SEND OUT ORDERAB LES Performing Organization Address City/State/[facility] Co de Phone Number [facility] [place] [address] documented in this encounter Visit Diagnoses Diagnosis Ulcerative pancolitis with complication documented in this encounter Care Teams Jinrikisha Driver Relationship Specialty Start Date End Date Pradeep Gallardo, PATENT DRAFTER PCP - General 07/19/10 08/04/24 documented as of this encounter
--- OUTSIDE RECORDS SUMMARY | 2024-09-05 16:51 | XMS_ITS | Encounter Summary ---
Author Organization [facility] [place] [address] Care Team Providers Care Healthcare Technician Name Role Phone Pradeep Gallardo APRN Primary Care Provider [phone] Encounter Details Date Type Department Care Team (Late st Contact Info) Description 06/21/2023 Orders [place] [address] Janice Villarreal MD [facility] [place] [address] Ulcerative pancolitis with complication; Encounter for monitoring [...] therapy documented in this encounter Care Teams Healthcare Technician Relationship Specialty Start Date End Date Pradeep Gallardo APRN PCP - General 07/19/10 08/04/24 documented as of this encounter
--- OUTSIDE RECORDS SUMMARY | 2024-09-05 16:51 | XMS_ITS | Encounter Summary ---
[place] [address] Care Team Providers Care Box Sealing Machine Operator Name Role Phone Pradeep Gallardo APRN Primary Care Provider Reason for Visit * Reason Onset Date Comments Other 04/19/2023 Patient Navigati on Encounter Details Date Type Department Care Team (Late st Contact Info) Description 04/19/2023 Telephone [place] [phone] Mandi Manzanares Other (Patient Navigation/) Social History [...] 05/01/23. Let the patient know that this proposal writer will be faxing the required documentation to the [place] Disability office, as requested, but that there is no provider available to fill out the clinical assessment requested. Will ask Dr. Villarreal to attend to this on her return. Patient was again counseled to involve her PCP, Dr. Aria Thompson, and also request records and a letter from any other specialist involved in her care. PLAN: Will fax requested documentation to [place] Disability office and will ask Dr. Villarreal for clinical assessment on her return to the office. Mandi Manzanares MA Patient Navigator Section of Gastroenterology & Hepatology documented in this encounter Plan of Treatment Not on file documented as of this encounter Visit Diagnoses Not on filedocumented in this encounter Care Teams Box Sealing Machine Operator Relationship Specialty Start Date End Date Pradeep Gallardo APRN PCP - General 07/19/10 08/04/24 documented as of this encounter
--- OUTSIDE RECORDS SUMMARY | 2024-09-05 16:51 | XMS_ITS | Encounter Summary ---
Author Organization [facility] [place] [address] Care Team Providers Care Civil Engineering Draftsperson Name Role Phone Pradeep Gallardo APRN Primary Care Provider [phone] Encounter Details Date Type Department Care Team (Late st Contact Info) Description 08/24/2023 Telephone [place] [phone] Jeanette Franco RN Social History Tobacco Use [...] 08/24/2023 9:22 AM EST Prior Authorization Facility: [facility] TIN: [id number] Medication: Remicade J-code: [id number] Dosage: 5 mg/kg Frequency & Route: every 8 weeks Insurance & Phone #: BCBS [facility] [phone] ID #: [id number] Trialed (dosage, frequency): mesalamine, budesonide (rashes), prednisone, [...] on filedocumented in this encounter Care Teams Civil Engineering Draftsperson Relationship Specialty Start Date End Date Pradeep Gallardo APRN PCP - General 07/19/10 08/04/24 documented as of this encounter
--- OUTSIDE RECORDS SUMMARY | 2024-09-05 16:51 | XMS_ITS | Encounter Summary ---
[place] [address] Care Team Providers Care Director Sanitation Bureau Name Role Phone Pradeep Gallardo APRN Primary Care Provider [phone] Encounter Details Date Type Department Care Team (Latest Contact Info) Description 06/13/2023 1:05 PM EDT Laboratory Appointment Lab [address] [place] [phone] Ulcerative pancolitis with complication; Urinary frequency Social [...] Date/Time Associated Diagnosis Comments INFLIXIMAB LEVEL Routine 06/13/2023 12:1 1 PM EDT Ulcerative pancolitis with complication CRP, ACUTE INFLAMMATION Routine 06/13/2023 12:11 PM EDT Ulcerative pancolitis with complication HEMOGRAM Routine 06/13/2023 12:11 PM EDT Ulcerative pancolitis with complication DIFFERENTIAL, AUTOMATED Routine 06/13/2023 12:11 PM EDT Ulcerative pancolitis with complication VITAMIN D, 25-HYDROXY Routine 06/13/2023 12:11 PM EDT Ulcerative pancolitis with complication CBC (WITH DIFF) Routine 06/13/2023 12:11 PM EDT Ulcerative pancolitis with complication documented in this encounter Results * (ABNORMAL) Differential, Automated (06/13/2023 12:11 PM EDT) Neutrophil % 26.6 % [facility] Neutrophil Absolute 1.18(L) 1.70 - 6.10 x10(3)/mc L [facility] Lymph % 48.3 % [facility] Lymphocytes Abs 2.1 0.9 - 3.2 x10(3)/mc L [facility] Monocyte % 12.2 % [facility] Monocyte Abs 0.5 0.3 - 0.9 x10(3)/mc L [facility] Eos % 11.3 % [facility] Eosinophils Abs 0.5(H) 0.0 - 0.4 x10(3)/mc L [facility] Basophil % 1.4 % [facility] Baso Absolute 0.1 0.0 - 0.1 x10(3)/mc L [facility] Immature Gran % 0.20 % [facility] Comment: Immature granulocytes(IG's)percentage and absolute count will include metamyelocytes, myelocytes, and promyelocytes. Blood smears from CBCs yielding IG's will be scanned manually for concordance. If this scan disagrees with the automated IG or if promyelocytes are noted, a manual differential will be performed. Immature Gran Absolute 0.01 0.00 - 0.04 x10(3)/mc L [facility] Blood 06/13/2023 12:1 1 PM EDT 06/13/2023 12:19 PM EDT Narrative Resulting Agency Comment Spec In Lab Janice Villarreal MD HEMATOLOGY ORDERABLE S [facility] [place] [address] * (ABNORMAL) Hemogram (06/13/2023 12:11 PM EDT) White Blood Cell 4.4 4.0 - 9.5 x10(3)/mc L [facility] Red Blood Cell 4.10 4.00 - 5.21 x10(6)/mc L [facility] Hemoglobin 12.5 11.7 - 15.5 g/dL [facility] Hematocrit 35.6(L) 35.7 - 45.8 % [facility] Mean Cell Volume 86.8 82.6 - 94.4 fL [facility] Mean Cell Hemoglobin 30.5 27.1 - 32.0 pg [facility] Mean Cell Hemoglobin Concentration 35.1(H) 31.7 - 35.0 g/dL [facility] Platelet 306 145 - 357 x10(3)/mc L [facility] RDW Standard Deviation 48.8(H) 37.0 - 46.0 fL [facility] RDW coefficient of variation 15.2(H) 11.5 - 14.1 % [facility] Mean Platelet Volume 8.8 7.6 - 12.9 fL [facility] NRBC% auto 0.0 % [facility] NRBC Absolute 0.000 0.000 - 0.000 x10(3)/ L [facility] Blood 06/13/2023 12:1 1 PM EDT 06/13/2023 12:19 PM EDT Narrative Resulting Agency Comment Spec In Lab Janice Villarreal MD HEMATOLOGY ORDERABLE S Performing Organization Address City/[facility] Co de Phone Number [facility] [place] [address] * CRP, acute inflammation (06/13/2023 12:11 PM EDT) C-Reactive Protein 3.4 <=4.9 mg/L [facility] Blood 06/13/2023 12:1 1 PM EDT 06/13/2023 12:19 PM EDT Narrative Resulting Agency Comment Spec In Lab Janice Villarreal MD CHEMISTRY ORDERABLES Performing Organization Address City/[facility]/ZIP Co de Phone Number [facility] [place] [address] * Vitamin D, 25-Hydroxy (06/13/2023 12:11 PM EDT) Vitamin D Total 25 OH 72 21 - 100 ng/mL [facility] Vit D Interp Sufficient [facility] Blood 06/13/2023 12:1 1 PM EDT 06/13/2023 12:19 PM EDT Narrative Resulting Agency Comment Spec In Lab Janice Villarreal MD CHEMISTRY ORDERABLES [facility] [address] * (ABNORMAL) Infliximab Level (06/13/2023 12:11 PM [...] ?are greater than 5.0 mcg/mL, clinically relevant ?[id number] fliximab are unlikely and reflex testing ?will not be performed. ? ---ADDITIONAL INFORMATION------- ?This test was developed and its performance characteristics ?determined by [facility] in a manner consistent with CLIA ?requirements. This test has not been cleared or approved by ?the U.S. Food and Drug Administration. ?Test Performed by: ?[facility] ?[address] [id number] ?Roll Icer Machine: Basil Retana M.D. Ph.D.; CLIA# [id number]) [facility] Blood 06/13/2023 12:1 1 PM EDT 06/13/2023 3:13 PM EDT Narrative Resulting Agency Comment Spec In Lab Janice Villarreal MD LAB SEND OUT ORDERAB LES Performing Organization Address City/State/[facility] Co de Phone Number [facility] [place] [address] documented in this encounter Visit Diagnoses Diagnosis Ulcerative pancolitis with complication Urinary frequency documented in this encounter Care Teams Director Sanitation Bureau Relationship Specialty Start Date End Date Pradeep Gallardo APRN PCP - General 07/19/10 08/04/24 documented as of this encounter
--- OUTSIDE RECORDS SUMMARY | 2024-09-05 16:51 | XMS_ITS | Encounter Summary ---
Author Organization [facility] Jose Luis [facility] [address] Care Team Providers Care Medical Physics Researcher Name Role Phone Pradeep Gallardo APRN Primary Care Provider [phone] Encounter Details Date Type Department Care Team (Late st Contact Info) Description 08/23/2023 Telephone [place] [phone] Jeanette Franco RN Social History Tobacco Use [...] 08/23/2023 12:37 PM EST Received VM from [facility], Due for new orders and PA for Remicade. Based on chart review, further liver work up is pending. Will hold until dosing for next infusion can be confirmed. documented in this encounter Plan of Treatment Not on file documented as of this encounter Visit Diagnoses Not on filedocumented in this encounter Care Teams Medical Physics Researcher Relationship Specialty Start Date End Date Pradeep Gallardo APRN PCP - General 07/19/10 08/04/24 documented as of this encounter
--- OUTSIDE RECORDS SUMMARY | 2024-09-05 16:51 | XMS_ITS | Encounter Summary ---
Author Organization [facility] Luis [facility] [place] [address] Care Team Providers Care Portable Irrigation Operator Name Role Phone Pradeep Gallardo APRN Primary Care Provider Encounter Details Date Type Department Care Team (Late st Contact Info) Description 07/13/2023 Telephone [place] [phone] Jeanette Franco RN Social History Tobacco Use [...] 07/13/2023 8:16 AM EST Received call from [facility] infusion, Elsa is due this morning for [...] on filedocumented in this encounter Care Teams Portable Irrigation Operator Relationship Specialty Start Date End Date Pradeep Gallardo APRN PCP - General 07/19/10 08/04/24 documented as of this encounter
--- OUTSIDE RECORDS SUMMARY | 2024-09-05 16:51 | XMS_ITS | Encounter Summary ---
Author Organization [facility] [place] [address] Care Team Providers Care Double Cutter Name Role Phone Pradeep Gallardo APRN Primary Care Provider Encounter Details Date Type Department Care Team (Late st Contact Info) Description 04/25/2023 Telephone [place] [phone] Shayla Sierra, RN Social History Tobacco Use Types Packs/Day [...] on filedocumented in this encounter Care Teams Double Cutter Relationship Specialty Start Date End Date Pradeep Gallardo APRN PCP - General 07/19/10 08/04/24 documented as of this encounter
--- OUTSIDE RECORDS SUMMARY | 2024-09-05 16:51 | XMS_ITS | Encounter Summary ---
Author Organization [facility] Jose Luis [facility] [place] [address] Care Team Providers Care Policy Service Coordinator Name Role Phone Pradeep Gallardo APRN Primary Care Provider [phone] Encounter Details Date Type Department Care Team (Late st Contact Info) Description 12/27/2023 Telephone [place] [phone] Abby Baer RN Social History Tobacco Use [...] on filedocumented in this encounter Care Teams Policy Service Coordinator Relationship Specialty Start Date End Date Pradeep Gallardo APRN PCP - General 07/19/10 08/04/24 documented as of this encounter
--- OUTSIDE RECORDS SUMMARY | 2024-09-05 16:51 | XMS_ITS | Encounter Summary ---
Author Organization [facility] [place] [address] Care Team Providers Care Blankmaker Name Role Phone Pradeep Gallardo APRN Primary Care Provider [phone] Reason for Referral * Consultation (Routine) - Closed Specialty Diagnoses / Procedures Referred By Contac t Referred To Contact Dermatology Diagnoses Ulcerative pancolitis with other complication Janice Villarreal MD [facility] [place] [address] [facility] [address] [place] [address] Referral ID Status Reason Start Date Expiration Date V isits Requested Visits Authorized [id number] Closed Consult, Test & Treat 08/31/2022 08/31/2023 1 1 Reason for Visit * Consultation (Urgent) - Closed Specialty Diagnoses / Procedures Referred By Contac t Referred To Contact Gastroenterology Diagnoses Ulcerative colitis without complications, unspecified location w/in 2-4 WEEKS -Ulcerative colitis Alina Mackenzie APRN [address] [place] [address] [facility] [place] [address] [place] [address] Referral ID Status Reason Start Date Expiration Date V isits Requested Visits Authorized [id number] Closed Consult, Test & Treat PCP Updated and/or Approved 08/01/2022 08/01/2023 6 6 Encounter Details Date Type Department Care Team (Late st Contact Info) Description 08/31/2022 11:30 AM EST Office Visit Gastroenterology at [facility] [place] [address] Janice Villarreal MD [facility] DR [place] [address] Ulcerative pancolitis with other complication Social History [...] from the original note were not included. [facility] Division of Gastroenterology and Hepatology Outpatient Consultation Reason for Visit: UC Referred by Alina Mackenzie History of Present Illness: Elsa Lujan??61F w/ PMH of??panulcerative colitis??c/b hospitalization 07/2022 present to GI clinic to establish care. Patient is transferring care from [place], where she has received her care (history [...] iron EOD. Hoping to make trip to [place] late November. Accepting award in [place] in January. IBD History: - diagnosed with [...] Villarreal MD Fellow in [place]enter[place] [address] P: [phone] F: [phone] CC Aria Thompson MD [address] [place] [address] documented in this encounter Plan of Treatment Scheduled Referrals Name Type Priority Associated Diagnoses Orde r Schedule Referral to Dermatology Outpatient Referral Routine Ulcerative pancolitis with other complication Ordered: 08/31/2022 documented as of this encounter Visit Diagnoses Diagnosis Ulcerative pancolitis with other complication documented in this encounter Care Teams Blankmaker Relationship Specialty Start Date End Date Pradeep Gallardo APRN PCP - General 07/19/10 08/04/24 documented as of this encounter
--- OUTSIDE RECORDS SUMMARY | 2024-09-05 16:51 | XMS_ITS | Encounter Summary ---
Author Organization [facility] [place] [address] Care Team Providers Care Editing Intern Name Role Phone Pradeep Gallardo APRN Primary Care Provider [phone] Reason for Visit * Reason Comments Medication Refill Encounter Details Date Type Department Care Team (Late st Contact Info) Description 09/17/2022 Refill [place] [address] Marc Cunningham MD [facility] [place] [address] Social History Tobacco Use Types Packs/Day Years [...] on filedocumented in this encounter Care Teams Editing Intern Relationship Specialty Start Date End Date Pradeep Gallardo APRN PCP - General 07/19/10 08/04/24 documented as of this encounter
--- OUTSIDE RECORDS SUMMARY | 2024-09-05 16:51 | XMS_ITS | Encounter Summary ---
Author Organization [facility] [place] [address] Care Team Providers Care Rubber Calender Helper Name Role Phone Pradeep Gallardo APRN Primary Care Provider [phone] Encounter Details Date Type Department Care Team (Late st Contact Info) Description 04/03/2023 [place] [phone] Jenise Mooney Social History Tobacco Use Types [...] on filedocumented in this encounter Care Teams Rubber Calender Helper Relationship Specialty Start Date End Date Pradeep Gallardo APRN PCP - General 07/19/10 08/04/24 documented as of this encounter
--- OUTSIDE RECORDS SUMMARY | 2024-09-05 16:51 | XMS_ITS | Encounter Summary ---
[place] [address] Care Team Providers Care Automation Driver Name Role Phone Pradeep Gallardo APRN Primary Care Provider [phone] Reason for Visit * Reason Onset Date Comments Other 03/23/2023 Patient Navigati on Encounter Details Date Type Department Care Team (Late st Contact Info) Description 03/23/2023 Tele[place] [phone] Mandi Manzanares Other (Patient Navigation/) Social History [...] PM EDT Called the patient after this financial writer was notified of a voicemail message [...] well enough to work again. PLAN: This financial writer will pass this information along to the clinic nursing staff and for the provider(s) covering for Dr. Villarreal until May 01. The patient was asked to get in touch if she hears more from [facility] regarding any upcoming deadlines in regards to her appeal. Mandi Manzanares MA Patient Navigator Section of Gastroenterology & Hepatology documented in this encounter Plan of Treatment Not on file documented as of this encounter Visit Diagnoses Not on filedocumented in this encounter Care Teams Automation Driver Relationship Specialty Start Date End Date Pradeep Gallardo APRN PCP - General 07/19/10 08/04/24 documented as of this encounter
--- OUTSIDE RECORDS SUMMARY | 2024-09-05 16:51 | XMS_ITS | Encounter Summary ---
[place] [address] Care Team Providers Care Seed Cutter Name Role Phone Pradeep Gallardo APRN Primary Care Provider [phone] Encounter Details Date Type Department Care Team (Latest Contact Info) Description 12/26/2023 1:50 PM EDT Laboratory Appointment Lab [address] [place] [id number] Transaminitis Social History Tobacco Use Types Packs/Day [...] Procedure Name Priority Date/Time Associated Diagnosis Comments MITOCHONDRIAL ANTIBODY, M2 Routine 12/26/2023 2:09 PM EDT Transaminitis SMOOTH MUSCLE ANTIBODY Routine 2:09 PM EDT Transaminitis BILIRUBIN, DIRECT Routine 12/26/2023 2:0 8 PM EDT HEPATITIS C ANTIBODY Routine 12/26/2023 2:08 PM EDT Transaminitis IRON AND TIBC Routine 12/26/2023 2:08 PM EDT Transaminitis [id number] Routine 12/26/2023 2 :08 PM EDT Transaminitis MITOCHONDRIAL ANTIBODY, M2 Routine 12/26/2023 2:08 PM EDT Transaminitis CERULOPLASMIN Routine 12/26/2023 2:08 PM EDT Transaminitis SMOOTH MUSCLE ANTIBODY Routine 2:08 PM EDT Transaminitis HIV SCREEN, 4TH GENERATION ([facility]/CGP/APD/NLH) Routine 12/26/2023 2:08 PM EDT Transaminitis HC DNA AB DS (GAKONA) Routine 12/26/2023 2:08 PM EDT Transaminitis HC SERUM PROT. ELECTROPHORESIS Routine 12/26/2023 2:08 PM EDT Transaminitis HEMOGLOBIN A1C Routine 12/26/2023 2:08 PM EDT Transaminitis IGG Routine 12/26/2023 2:08 PM EDT Transaminitis FERRITIN Routine 12/26/2023 2:08 PM EDT Transaminitis LIPID PANEL (REFLEX DIRECT LDL) Routine 12/26/2023 2:08 PM EDT Transaminitis COMPREHENSIVE METABOLIC PANEL Routine 12/26/2023 2:08 PM EDT Transaminitis documented in this encounter Results * Smooth Muscle Antibody (12/26/2023 2:09 PM EDT) Sm Muscle Ab (DECEMBER) Negative Negative M [facility] Comment: Negative: No further testing will be performed ADDITIONAL INFORMATION This test was developed and its performance characteristics determined by [facility] in a manner consistent with CLIA requirements. This test has not been cleared or approved by the U.S. Food and Drug Administration. Test Performed by: [facility] [place] [address] Broach Setter: Basil Retana M.D. Ph.D.; CLIA# [id number] Blood 12/26/2023 2:09 PM EDT 12/26/2023 3:55 PM EDT Narrative Resulting Agency Comment Spec In Lab Janice Villarreal MD LAB SEND OUT ORDERAB LES Performing Organization Address City/[facility]/ZIP Co de Phone Number [facility] [place] [address] * Mitochondrial Antibody, M2 (12/26/2023 2:09 PM EDT) Mitochon Ab (MAY) <0.1 <0.1 (Negative) U [facility] Comment: Test Performed by: [facility] - [address] [address] Broach Setter: Basil Retana M.D. Ph.D.; CLIA# [id number] Blood 12/26/2023 2:09 PM EDT 12/26/2023 3:55 PM EDT Narrative Resulting Agency Comment Spec In Lab Janice Villarreal MD LAB SEND OUT ORDERAB LES Performing Organization Address City/[facility]/ZIP Co de Phone Number [facility] [place] [address] * Bilirubin, Direct (12/26/2023 2:08 PM EDT) Bilirubin, Direct 0.1 0.0 - 0.3 mg/dL [facility] Blood 12/26/2023 2:08 PM EDT 12/26/2023 2:27 PM EDT Narrative Resulting Agency Comment Spec In Lab Janice Villarreal MD CHEMISTRY ORDERABLES [facility] [place] [address] * (ABNORMAL) Comprehensive metabolic panel (non-fasting) (12/26/2023 2:08 PM EDT) Glucose 104 65 - 199 mg/dL [facility] Comment:Diabetes: >=200 mg/d L plus symptoms Blood Urea Nitrogen 11 8 - 18 mg/dL [facility] Creatinine 0.62(L) 0.70 - 1.20 mg/dL [facility] Sodium 127(L) 135 - 145 mmol/L [facility] Potassium 4.1 3.5 - 5.0 mmol/L [facility] Comment: Please note: ??Patients with WBC >100,000 may have falsely elevated Potassium levels. ??For accurate Potassium quantification in these patients send serum separator tube (gold top) for subsequent determinations. ??Contact the Clinical Chemistry Laboratory if there are any questions. Chloride 89(L) 98 - 107 mmol/L [facility] Carbon Dioxide 28 22 - 31 mmol/L [facility] Anion Gap 10 5 - 15 mmol/L [facility] Calcium 9.6 8.5 - 10.5 mg/dL [facility] Protein, Total 7.0 6.1 - 8.0 g/dL [facility] Albumin 4.7 3.2 - 5.2 g/dL [facility] Aspartate Aminotransferase 39(H) 0 - 30 unit/L [facility] Alanine Aminotransferase 60(H) 0 - 30 unit/L [facility] Alkaline Phosphatase 89 35 - 105 unit/L [facility] Bilirubin, Total 0.3 0.2 - 1.3 mg/dL [facility] Est Glomerular Filtration Rate 99 >=60 mL/min/1. 73 m?? [facility] Comment: This patient's [...] Villarreal MD CHEMISTRY ORDERABLES Performing Organization Address City/[facility]/ZIP Co de Phone Number [facility] [place] [place] [address] * Hepatitis C Antibody (12/26/2023 2:08 PM EDT) Hepatitis C Antibody Negative Negative [facility] Blood 12/26/2023 2:08 PM EDT 12/26/2023 2:27 PM EDT Narrative Resulting Agency Comment Spec In Lab Janice Villarreal MD CHEMISTRY ORDERABLES Performing Organization Address [facility] Co de Phone Number [facility] [place] [place] [address] * HIV Screen, 4th Generation ([facility]/CGP/APD/NLH) (12/26/2023 2:08 PM EDT) HIV Ab/Ag Screen Negative Negative [facility] Comment: This 4th Generation [...] HIV Comment Low Risk of HIV Infection [facility] Blood 12/26/2023 2:08 PM EDT 12/26/2023 2:27 PM EDT Narrative Resulting Agency Comment Spec In Lab Janice Villarreal MD CHEMISTRY ORDERABLES Performing Organization Address [facility]/ZIP Co de Phone Number [facility] [place] [address] * TORRES Antibody Screen (12/26/2023 2:08 PM EDT) TORRES Ab Screen Negative Negative [facility] Comment: This antinuclear antibody (TORRES) screen is a qualitative test performed using a fluoroenzyme immunoassay on the Ruby Ribbondia 250 analyzer. This screen is designed to detect antibodies to U1RNP, SS-A/Ro, SS-B/La, centromere B, Scl-70, Maru-1, and Sm(Lux) proteins in serum samples. Antibodies to other nuclear antibodies will not be detected with this assay. This TORRES screen is also performed in concert with a quantitative for IgG antibodies to dsDNA. dsDNA Ab 1.1 <=15.0 IU/mL [facility] Comment: <10 negative 10-15 equivocal >15 positive This dsDNA antibody result was generated using a fluoroenzyme immunoassay on the Ruby Ribbondia 250 analyzer. This quantitative test is designed to detect IgG antibodies directed against double stranded DNA in human serum. The presence of antibodies that recognize dsDNA is a highly specific marker for systemic lupus erythematosus. Please note that as of 06/20/2022 that this testing is performed by the Special Chemistry Laboratory at [facility]. This change in testing location is associated with a change is testing method and reference intervals. Please review the results of this test in association with the posted reference intervals. Blood 12/26/2023 2:08 PM EDT 12/27/2023 7:26 AM EDT Narrative Resulting Agency Comment Spec In Lab Janice Villarreal MD LAB SEND OUT ORDERAB LES Performing Organization Address [facility]/ZIP Co de Phone Number [facility] [place] [address] * Smooth Muscle Antibody (12/26/2023 2:08 PM EDT) Sm Muscle Ab (MAY) Negative Negative M [facility] Comment: Negative: No further testing will be performed ADDITIONAL INFORMATION This test was developed and its performance characteristics determined by [facility] in a manner consistent with CLIA requirements. This test has not been cleared or approved by the U.S. Food and Drug Administration. Test Performed by: [facility] [place] [address] Broach Setter: Basil Retana M.D. Ph.D.; CLIA# [id number] Blood 12/26/2023 2:08 PM EDT 12/26/2023 3:55 PM EDT Narrative Resulting Agency Comment Spec In Lab Janice Villarreal MD LAB SEND OUT ORDERAB LES Performing Organization Address [facility] Co de Phone Number [facility] [place] [address] * Mitochondrial Antibody, M2 (12/26/2023 2:08 PM EDT) Mitochon Ab (MAY) <0.1 <0.1 (Negative) [facility] Comment: Test Performed by: [facility] [place] [address] Broach Setter: Basil Retana M.D. Ph.D.; CLIA# [id number] Blood 12/26/2023 2:08 PM EDT 12/26/2023 3:55 PM EDT Narrative Resulting Agency Comment Spec In Lab Janice Villarreal MD LAB SEND OUT ORDERAB LES Performing Organization Address City/[facility]/ZIP Co de Phone Number [facility] [place] [address] * IgG (12/26/2023 2:08 PM EDT) Immunoglobulin G 877 700 - 1,600 mg/dL [facility] Comment: Pediatric Reference Intervals obtained from the Caliper Reference Interval project. http://www.sickkids.ca/caliperproject/index.html Blood 12/26/2023 2:08 PM EDT 12/26/2023 2:27 PM EDT Narrative Resulting Agency Comment Spec In Lab Janice Villarreal MD CHEMISTRY ORDERABLES Performing Organization Address [facility] Co de Phone Number [facility] [place] [address] * Protein Electrophoresis, serum (12/26/2023 2:08 PM EDT) Total Prot Electrophoresis 6.6 6.1 - 8.0 g/dL [facility] Albumin Electrophoresis 4.65 3.20 - 5.20 g/dL [facility] Alpha 1 Globulin 0.17 0.10 - 0.30 g/dL [facility] Alpha 2 Globulin 0.63 0.40 - 0.90 g/dL [facility] Beta Globulin 0.53 0.50 - 1.00 g/dL [facility] Gamma Globulin 0.62 0.50 - 1.30 g/dL [facility] M1 Band None Detected None Detected [facility] Blood 12/26/2023 2:08 PM EDT 12/26/2023 2:27 PM EDT Narrative Resulting Agency Comment Spec In Lab Janice Villarreal MD CHEMISTRY ORDERABLES Performing Organization Address [facility] Co de Phone Number [facility] [place] [address] * Hemoglobin A1c (12/26/2023 2:08 PM EDT) Hemoglobin A1c 5.3 4.3 - 5.6 % [facility] Comment: Reference Range: 4.3 [...] Mellitus, Diabetes Care 2013; 36: Suppl. 1, S67-75 Estimated Average Glucose 106 mg/dL [facility] Blood 12/26/2023 2:08 PM EDT 12/26/2023 2:27 PM EDT Narrative Resulting Agency Comment Spec In Lab Janice Villarreal MD CHEMISTRY ORDERABLES [facility] [place] [address] * Lipid Panel (Reflex Direct LDL) (12/26/2023 2:08 PM EDT) Cholesterol, Total 273 mg/dL [facility] Comment: Desirable: ? <200 mg/dL Borderline High: 200-239 mg/dL Higher: ?>fg=338 mg/dL Triglyceride 36 mg/dL [facility] Comment: Normal: ?<150 mg/dL Borderline High: 150-199 mg/dL High: ?200-499 mg/dL Very High: ? >yr=533 mg/dL HDL Cholesterol 140 mg/dL [facility] Comment: Females: High Risk: <50 mg/dL Males: High Risk: <40 mg/dL LDL Cholesterol 126 mg/dL [facility] Comment: Desirable: ? <100 mg/dL Above Desirable: 100-129 mg/dL Borderline High: 130-159 mg/dL High: ?160-189 mg/dL Very High: ? >hl=167 mg/dL Lipid Interpretation See Note [facility] Comment: It is important [...] ACC/AHA Guidelines (most recently Jenni et al. [facility] 05/30/22): For individuals with atherosclerotic cardiovascular disease (ASCVD)or LDL >ct=227 mg/dL, use a high-intensity statin (40-80 mg [...] In Lab Janice Villarreal MD [place] [address] * Iron and TIBC (12/26/2023 2:08 PM EDT) Iron 94 30 - 150 mcg/dL [facility] TIBC 298 250 - 450 mcg/dL [facility] Iron Saturation 32 20 - 50 % [facility] Blood 12/26/2023 2:08 PM EDT 12/26/2023 2:27 PM EDT Narrative Resulting Agency Comment Spec In Lab Janice Villarreal MD CHEMISTRY ORDERABLES [facility] [place] [address] * Ferritin (12/26/2023 2:08 PM EDT) Ferritin 55 11 - 328 ng/mL [facility] Comment: Please note that as of 08/01/2023, the reference intervals for Ferritin have been updated. Blood 12/26/2023 2:08 PM EDT 12/26/2023 2:27 PM EDT Narrative Resulting Agency Comment Spec In Lab Janice Villarreal MD CHEMISTRY ORDERABLES Performing Organization Address City/[facility]/ZIP Co de Phone Number [facility] [place] [address] * A1AT Serum Concentration (12/26/2023 2:08 PM EDT) A1AT 155 90 - 200 mg/dL [facility] Blood 12/26/2023 2:08 PM EDT 12/26/2023 2:27 PM EDT Narrative Resulting Agency Comment Spec In Lab Janice Villarreal MD CHEMISTRY ORDERABLES Performing Organization Address City/[facility]/ZIP Co de Phone Number [facility] [place] [address] * Ceruloplasmin (12/26/2023 2:08 PM EDT) Ceruloplasmin 29.6 16.0 - 45.0 mg/dL [facility] Blood 12/26/2023 2:08 PM EDT 12/26/2023 2:27 PM EDT Narrative Resulting Agency Comment Spec In Lab Janice Villarreal MD CHEMISTRY ORDERABLES [facility] [place] [address] documented in this encounter Visit Diagnoses Diagnosis Transaminitis Nonspecific elevation of levels of transaminase or lactic acid dehydrogenase (LDH) documented in this encounter Care Teams Seed Cutter Relationship Specialty Start Date End Date Pradeep Gallardo APRN PCP - General 07/19/10 08/04/24 documented as of this encounter
--- OUTSIDE RECORDS SUMMARY | 2024-09-05 16:51 | XMS_ITS | Encounter Summary ---
[place] [address] Care Team Providers Care Tare Worker Name Role Phone Pradeep Gallardo APRN Primary [...] on filedocumented in this encounter Care Teams Tare Worker Relationship Specialty Start Date End Date Pradeep Gallardo APRN PCP - General 07/19/10 08/04/24 documented as of this encounter
--- OUTSIDE RECORDS SUMMARY | 2024-09-05 16:51 | XMS_ITS | Encounter Summary ---
Author Organization [facility] [place] [address] Care Team Providers Care Book Salesman Name Role Phone Paulina Pradeep Swartz APRN Primary Care Provider [phone] Encounter Details Date Type Department Care Team (Late st Contact Info) Description 12/27/2023 Orders [place] [address] Janice Villarreal MD [facility] [place] [address] Transaminitis Social History Tobacco Use Types Packs/Day [...] Glucose 107 65 - 199 mg/dL [facility] Comment:Diabetes: >=200 mg/d L plus symptoms Blood Urea Nitrogen 13 8 - 18 mg/dL [facility] Creatinine 0.62(L) 0.70 - 1.20 mg/dL [facility] Sodium 133(L) 135 - 145 mmol/L [facility] Potassium 4.4 3.5 - 5.0 mmol/L [facility] Comment: Please note: ??Patients with WBC >100,000 may have falsely elevated Potassium levels. ??For accurate Potassium quantification in these patients send serum separator tube (gold top) for subsequent determinations. ??Contact the Clinical Chemistry Laboratory if there are any questions. Chloride 97(L) 98 - 107 mmol/L [facility] Carbon Dioxide 27 22 - 31 mmol/L [facility] Anion Gap 9 5 - 15 mmol/L [facility] Calcium 9.3 8.5 - 10.5 mg/dL [facility] Protein, Total 6.8 6.1 - 8.0 g/dL [facility] Albumin 4.5 3.2 - 5.2 g/dL [facility] Aspartate Aminotransferase 33(H) 0 - 30 unit/L [facility] Alanine Aminotransferase 42(H) 0 - 30 unit/L [facility] Alkaline Phosphatase 84 35 - 105 unit/L [facility] Bilirubin, Total 0.3 0.2 - 1.3 mg/dL [facility] Est Glomerular Filtration Rate 99 >=60 mL/min/1. 73 m?? [facility] Comment: This patient's estimated GFR [...] In Lab Janice Villarreal MD CHEMISTRY ORDERABLES [facility] [place] [address] documented in this encounter Visit Diagnoses Diagnosis Transaminitis Nonspecific elevation of levels of transaminase or lactic acid dehydrogenase (LDH) documented in this encounter Care Teams Book Salesman Relationship Specialty Start Date End Date Pradeep Gallardo APRN PCP - General 07/19/10 08/04/24 documented as of this encounter
--- OUTSIDE RECORDS SUMMARY | 2024-09-05 16:51 | XMS_ITS | Encounter Summary ---
Author Organization [facility] [place] [address] Care Team Providers Care Security Architect Name Role Phone Pradeep Gallardo APRN Primary Care Provider [phone] Reason for Visit * Reason Onset Date Comments Teeth Problems 12/28/2022 Encounter Details Date Type Department Care Team (Late st Contact Info) Description 12/28/2022 Telephone [place] [phone] Ivelisse Ballesteros RN Teeth Problems Social History [...] on filedocumented in this encounter Care Teams Security Architect Relationship Specialty Start Date End Date Pradeep Gallardo APRN PCP - General 07/19/10 08/04/24 documented as of this encounter
--- OUTSIDE RECORDS SUMMARY | 2024-09-05 16:51 | XMS_ITS | Encounter Summary ---
Author Organization [facility] [place] [address] Care Team Providers Care Online Content Editor Name Role Phone Pradeep Gallardo APRN Primary Care Provider Encounter Details Date Type Department Care Team (Late st Contact Info) Description 08/14/2022 Telephone [place] [address] Jay Tom RN Social History [...] network outpatient setting Will send orders to [facility] once signed by Dr. Orellana and plan for infusion there. * Telephone Encounter - Jeanette Franco RN - 08/15/2022 10:05 AM EST INEZ from Cecy at [facility], Elsa contacted them to see if she could get her week 2 infusions set upwith them. Left VM for Elsa that an urgent authorization was approved to be at [facility] and we are sending orders. Requested that for at least the induction doses that Elsa gets these done at [facility] so she can stay on track with induction. Could consider changing to [facility] once on maintenance. Requested she called the office back to confirm this plan. * Telephone Encounter - Jay Tom RN - 08/14/2022 3:03 PM EST Approved for 12 months through 08/14/23 Will fax orders to [facility] once signed by Dr. Orellana. Next infusion due 08/25/22 * Telephone Encounter - Jay Tom RN - 08/14/2022 8:52 AM EST Prior Authorization Facility: [facility] TIN: [id number] Medication: Remicade J-code: [id number] Dosage: 10 mg/kg Frequency & Route: IV week 2, 6, then every 8 Insurance & Phone #: [employer] [facility] ID #: [id number] Trialed (dosage, frequency): mesalamine, budesonide (rashes), prednisone, Entyvio (hives 07/05/22 - 07/19/22) Diagnosis/ICD-10: UC K51.90 Notes:Received first dose as inpatient on 08/11 Submitted marked urgent via CMM Pending Roche: [id number] KATE documented in this encounter Plan of Treatment Not on file documented as of this encounter Visit Diagnoses Not on filedocumented in this encounter Care Teams Online Content Editor Relationship Specialty Start Date End Date Pradeep Gallardo APRN PCP - General 07/19/10 08/04/24 documented as of this encounter
--- OUTSIDE RECORDS SUMMARY | 2024-09-05 16:51 | XMS_ITS | Encounter Summary ---
[place] [address] Care Team Providers Care Electronics Processing Supervisor Name Role Phone Pradeep Gallardo APRN [...] on filedocumented in this encounter Care Teams Electronics Processing Supervisor Relationship Specialty Start Date End Date Pradeep Gallardo APRN PCP - General 07/19/10 08/04/24 documented as of this encounter
--- OUTSIDE RECORDS SUMMARY | 2024-09-05 16:51 | XMS_ITS | Encounter Summary ---
[place] [address] Care Team Providers Care Zoogler Name Role Phone Pradeep Gallardo APRN Primary Care Provider [phone] Reason for Visit * Reason Onset Date Comments Other 04/13/2023 Patient Navigati on Encounter Details Date Type Department Care Team (Late st Contact Info) Description 04/13/2023 Telephone [place] [phone] Mandi Manzanares Other (Patient Navigation/) Social History [...] Villarreal who is out until 05/01/23. This health science writer found a request from [facility] dated 03/26/23 and filed in the Media tab on 03/28/23. It was a request for records and a statement from a provider that they wished to be sent by 04/10/23. PLAN: This health science writer let the patient know that this health science writer is inquiring about whether the clinicians covering for Dr. Villarreal can complete this paperwork in her absence. Will update the patient once more is known about the situation. Mandi Manzanares MA Patient Navigator Section of Gastroenterology & Hepatology documented in this encounter Plan of Treatment Not on file documented as of this encounter Visit Diagnoses Not on filedocumented in this encounter Care Teams Zoogler Relationship Specialty Start Date End Date Pradeep Gallardo APRN PCP - General 07/19/10 08/04/24 documented as of this encounter
--- OUTSIDE RECORDS SUMMARY | 2024-09-05 16:51 | XMS_ITS | Encounter Summary ---
[place] [address] Care Team Providers Care Senior Technical Project Manager Name Role Phone Pradeep Gallardo APRN [...] filedocumented in this encounter Care Teams Senior Technical Project Manager Relationship Specialty Start Date End Date Pradeep Gallardo APRN PCP - General 07/19/10 08/04/24 documented as of this encounter
--- OUTSIDE RECORDS SUMMARY | 2024-09-05 16:51 | XMS_ITS | Encounter Summary ---
[place] [address] Care Team Providers Care Design Technology Teacher Name Role Phone Pradeep Gallardo APRN Primary [...] on filedocumented in this encounter Care Teams Design Technology Teacher Relationship Specialty Start Date End Date Pradeep Gallardo APRN PCP - General 07/19/10 08/04/24 documented as of this encounter
--- OUTSIDE RECORDS SUMMARY | 2024-09-05 16:51 | XMS_ITS | Encounter Summary ---
Author Organization [facility] Address [facility] [place] [address] Care Team Providers Care Grassroots Organizer Name Role Phone Pradeep Gallardo APRN Primary Care Provider [phone] Encounter Details Date Type Department Care Team (Late st Contact Info) Description 08/14/2022 Telephone Family Medicine at [facility] [address] [place] [phone] Audie Daugherty MA Social History Tobacco Use [...] on filedocumented in this encounter Care Teams Grassroots Organizer Relationship Specialty Start Date End Date Pradeep Gallardo APRN PCP - General 07/19/10 08/04/24 documented as of this encounter
--- OUTSIDE RECORDS SUMMARY | 2024-09-05 16:51 | XMS_ITS | Encounter Summary ---
Author Organization [facility] [place] [address] Care Team Providers Care Leaf Sucker Operator Name Role Phone Pradeep Gallardo APRN Primary Care Provider [phone] Encounter Details Date Type Department Care Team (Late st Contact Info) Description 05/16/2023 [place]phone [place] [phone] Jeanette Franco RN Social History Tobacco Use [...] - 05/16/2023 8:29 AM EDT [facility] IFX level was unable to be processed by [facility] and sample was rejected.Per lab they talked to Elsa about this. Will let Dr. Villarreal know and refax level to [facility] for when she would be due for a trough again. documented in this encounter Plan of Treatment Not on file documented as of this encounter Visit Diagnoses Not on filedocumented in this encounter Care Teams Leaf Sucker Operator Relationship Specialty Start Date End Date Pradeep Gallardo APRN PCP - General 07/19/10 08/04/24 documented as of this encounter
--- OUTSIDE RECORDS SUMMARY | 2024-09-05 16:51 | XMS_ITS | Encounter Summary ---
Author Organization [facility] Address [facility] [place] [address] Care Team Providers Care Recyclable Materials Sorter Name Role Phone Paulina Pradeep Swartz APRN Primary Care Provider [phone] Encounter Details Date Type Department Care Team (Late st Contact Info) Description 09/03/2023 8:45 AM EST Office Visit Dermatology at [facility] [address] [place] [address] Gretchen Farias MD [facility] [address] [place] [address] Skin cancer screening; Lentigines; Multiple benign nevi [...] return sooner as needed []Note routed to legal billing clerk [x]Recall placed in scheduling system []Appointment scheduled at checkout Scribe attestation: LEONID Myers has performed the documentation for this encounter in thepresence of and acting as a scribe for Gretchen Farias MD. I performed the above scribed service and agree with the accuracy of the documentation in this encounter. Reviewed and signed by: Gretchen Farias MD Dermatology [facility] documented in this encounter Plan of Treatment [...] non-neoplastic documented in this encounter Care Teams Recyclable Materials Sorter Relationship Specialty Start Date End Date Pradeep Gallardo APRN PCP - General 07/19/10 08/04/24 documented as of this encounter
--- OUTSIDE RECORDS SUMMARY | 2024-09-05 16:51 | XMS_ITS | Encounter Summary ---
Author Organization [facility] [place] [address] Care Team Providers Care Head Of Stock Name Role Phone Paulina Pradeep Swartz APRN Primary Care Provider Encounter Details Date Type Department Care Team (Late st Contact Info) Description 08/22/2023 Telephone [place] [phone] Janice Villarreal MD [facility] [place] [address] Social History Tobacco Use Types Packs/Day Years [...] and Hepatology 08/22/2023 11:05 AM Pager # [phone] documented in this encounter Plan of Treatment Not on file documented as of this encounter Results * Ceruloplasmin (12/26/2023 2:08 PM EDT) Ceruloplasmin 29.6 16.0 - 45.0 mg/dL [facility] Blood 12/26/2023 2:08 PM EDT 12/26/2023 2:27 PM EDT Narrative Resulting Agency Comment Spec In Lab Janice Villarreal MD CHEMISTRY ORDERABLES [facility] [place] [address] * A1AT Serum Concentration (12/26/2023 2:08 PM EDT) A1AT 155 90 - 200 mg/dL [facility] Blood 12/26/2023 2:08 PM EDT 12/26/2023 2:27 PM EDT Narrative Resulting Agency Comment Spec In Lab Janice Villarreal MD CHEMISTRY ORDERABLES Performing Organization Address City/[facility]/ZIP Co de Phone Number [facility] [place] [address] * Ferritin (12/26/2023 2:08 PM EDT) Ferritin 55 11 - 328 ng/mL [facility] Comment: Please note that as of 08/01/2023, the reference intervals for Ferritin have been updated. Blood 12/26/2023 2:08 PM EDT 12/26/2023 2:27 PM EDT Narrative Resulting Agency Comment Spec In Lab Janice Villarreal MD CHEMISTRY ORDERABLES [facility] [place] [address] * Iron and TIBC (12/26/2023 2:08 PM EDT) Iron 94 30 - 150 mcg/dL [facility] TIBC 298 250 - 450 mcg/dL [facility] Iron Saturation 32 20 - 50 % [facility] Blood 12/26/2023 2:08 PM EDT 12/26/2023 2:27 PM EDT Narrative Resulting Agency Comment Spec In Lab Janice Villarreal MD CHEMISTRY ORDERABLES [facility] [place] [address] * Lipid Panel (Reflex Direct LDL) (12/26/2023 2:08 PM EDT) [facility] Cholesterol, Total 273 mg/dL [facility] Comment: Desirable: ? <200 mg/dL Borderline High: 200-239 mg/dL Higher: ?>qz=180 mg/dL Triglyceride 36 mg/dL [facility] Comment: Normal: ?<150 mg/dL Borderline High: 150-199 mg/dL High: ?200-499 mg/dL Very High: ? >rj=413 mg/dL HDL Cholesterol 140 mg/dL [facility] Comment: Females: High Risk: <50 mg/dL Males: High Risk: <40 mg/dL LDL Cholesterol 126 mg/dL [facility] Comment: Desirable: ? <100 mg/dL Above Desirable: 100-129 mg/dL Borderline High: 130-159 mg/dL High: ?160-189 mg/dL Very High: ? >kt=794 mg/dL Lipid Interpretation See Note [facility] Comment: It is important to [...] ACC/AHA Guidelines (most recently Jenni et al. [facility] 05/30/22): For individuals with atherosclerotic cardiovascular disease (ASCVD)or LDL >kr=261 mg/dL, use a high-intensity statin (40-80 mg [...] In Lab Janice Villarreal MD CHEMISTRY ORDERABLES [facility] [place] [address] * Hemoglobin A1c (12/26/2023 2:08 PM EDT) Hemoglobin A1c 5.3 4.3 - 5.6 % [facility] Comment: Reference Range: 4.3 - [...] Mellitus, Diabetes Care 2013; 36: Suppl. 1, S67-12 Estimated Average Glucose 106 mg/dL [facility] Blood 12/26/2023 2:08 PM EDT 12/26/2023 2:27 PM EDT Narrative Resulting Agency Comment Spec In Lab Janice Vlilarreal MD CHEMISTRY ORDERABLES Performing Organization Address City/[facility]/ZIP Co de Phone Number [facility] [place] [address] * Protein Electrophoresis, serum (12/26/2023 2:08 PM EDT) [facility] Total Prot Electrophoresis 6.6 6.1 - 8.0 g/dL [facility] Albumin Electrophoresis 4.65 3.20 - 5.20 g/dL [facility] Alpha 1 Globulin 0.17 0.10 - 0.30 g/dL [facility] Alpha 2 Globulin 0.63 0.40 - 0.90 g/dL [facility] Beta Globulin 0.53 0.50 - 1.00 g/dL [facility] Gamma Globulin 0.62 0.50 - 1.30 g/dL [facility] M1 Band None Detected None Detected [facility] Blood 12/26/2023 2:08 PM EDT 12/26/2023 2:27 PM EDT Narrative Resulting Agency Comment Spec In Lab Janice Villarreal MD CHEMISTRY ORDERABLES Performing Organization Address City/[facility]/ZIP Co de Phone Number [facility] [place] [address] * IgG (12/26/2023 2:08 PM EDT) Immunoglobulin G 877 700 - 1,600 mg/dL [facility] Comment: Pediatric Reference Intervals obtained from the Caliper Reference Interval project. http://www.[employer].ca/caliperproject/index.html Blood 12/26/2023 2:08 PM EDT 12/26/2023 2:27 PM EDT Narrative Resulting Agency Comment Spec In Lab Janice Villarreal MD CHEMISTRY ORDERABLES Performing Organization Address [facility] Co de Phone Number [facility] [place] [address] * Mitochondrial Antibody, M2 (12/26/2023 2:08 PM EDT) Pathologist [facility] Mitochon Ab (DECEMBER) <0.1 <0.1 (Negative) U [facility] Comment: Test Performed by: [facility] [address] [place] [address] Tailman: Basil Retana M.D. Ph.D.; CLIA# [id number] Blood 12/26/2023 2:08 PM EDT 12/26/2023 3:55 PM EDT Narrative Resulting Agency Comment Spec In Lab Janice Villarreal MD LAB SEND OUT ORDERAB LES Performing Organization Address City/[facility]/ZIP Co de Phone Number [facility] [place] [address] * Smooth Muscle Antibody (12/26/2023 2:08 PM EDT) Pathologist [facility] Sm Muscle Ab (DECEMBER) Negative Negative [facility] Comment: Negative: No further testing will be performed ADDITIONAL INFORMATION This test was developed and its performance characteristics determined by [facility] in a manner consistent with CLIA requirements. This test has not been cleared or approved by the U.S. Food and Drug Administration. Test Performed by: [facility] [address] [place] [address] Tailman: Basil Retana M.D. Ph.D.; CLIA# [id number] Blood 12/26/2023 2:08 PM EDT 12/26/2023 3:55 PM EDT Narrative Resulting Agency Comment Spec In Lab Janice Villarreal MD LAB SEND OUT ORDERAB LES [facility] [place] [address] * TORRES Antibody Screen (12/26/2023 2:08 PM EDT) TORRES Ab Screen Negative Negative [facility] Comment: This antinuclear antibody (TORRES) screen is a qualitative test performed using a fluoroenzyme immunoassay on the NeoAcceldia 250 analyzer. This screen is designed to detect antibodies to U1RNP, SS-A/Ro, SS-B/La, centromere B, Scl-70, Maru-1, and Sm(Lux) proteins in serum samples. Antibodies to other nuclear antibodies will not be detected with this assay. This TORRES screen is also performed in concert with a quantitative for IgG antibodies to dsDNA. dsDNA Ab 1.1 <=15.0 IU/mL [facility] Comment: <10 negative 10-15 equivocal >15 positive This dsDNA antibody result was generated using a fluoroenzyme immunoassay on the NeoAcceldia 250 analyzer. This quantitative test is designed to detect IgG antibodies directed against double stranded DNA in human serum. The presence of antibodies that recognize dsDNA is a highly specific marker for systemic lupus erythematosus. Please note that as of 06/20/2022 that this testing is performed by the [facility] Laboratory at [facility]. This change in testing location is associated with a change is testing method and reference intervals. Please review the results of this test in association with the posted reference intervals. Blood 12/26/2023 2:08 PM EDT 12/27/2023 7:26 AM EDT Narrative Resulting Agency Comment Spec In Lab Janice Villarreal MD LAB SEND OUT ORDERAB LES Performing Organization Address [facility] Co de Phone Number [facility] [place] [address] * HIV Screen, 4th Generation ([facility]/CGP/APD/NLH) (12/26/2023 2:08 PM EDT) HIV Ab/Ag Screen Negative Negative [facility] Comment: This 4th Generation HIV [...] HIV Comment Low Risk of HIV Infection [facility] Blood 12/26/2023 2:08 PM EDT 12/26/2023 2:27 PM EDT Narrative Resulting Agency Comment Spec In Lab Janice Villarreal MD CHEMISTRY ORDERABLES Performing Organization Address [facility]/ZIP Co de Phone Number [facility] [place] [address] * Hepatitis C Antibody (12/26/2023 2:08 PM EDT) Hepatitis C Antibody Negative Negative [facility] Blood 12/26/2023 2:08 PM EDT 12/26/2023 2:27 PM EDT Narrative Resulting Agency Comment Spec In Lab Janice Villarreal MD CHEMISTRY ORDERABLES Performing Organization Address City/[facility]/ZIP Co de Phone Number [facility] [place] [address] documented in this encounter Visit Diagnoses Diagnosis Transaminitis Nonspecific elevation of levels of transaminase or lactic acid dehydrogenase (LDH) documented in this encounter Care Teams Head Of Stock Relationship Specialty Start Date End Date Pradeep Gallardo APRN PCP - General 07/19/10 08/04/24 documented as of this encounter
--- OUTSIDE RECORDS SUMMARY | 2024-09-05 16:52 | XMS_ITS | Encounter Summary ---
Author Organization [facility] [place] [address] Care Team Providers Care Business Manager College [employer] Name Role Phone Paulina Pradeep Swartz APRN Primary Care Provider [phone] Reason for Visit * Consultation (Routine) - Closed Specialty Diagnoses / Procedures Referred By Merari rosario Referred To Contact Endocrinology Diagnoses Multinodular goiter SECOND OPINION FOR MULTINODULAR GOITER- NOW WITH ARGER LEFT LOBE NODULE Procedures CONSULT AND TREAT Aria Thompson MD [address] [place] [address] [facility] Endocrinology [address] [place] [phone] Referral ID Status Reason Start Date Expiration Date Visits Re quested Visits Authorized [id number] Closed 02/05/2017 02/05/2018 1 1 Encounter Details Date Type Department Care Team (Late st Contact Info) Description 03/23/2017 10:00 AM EDT Office [place] [address] Katie Almanza MD Multinodular goiter Social History Tobacco Use Types [...] benign,so it is 99% certain that her NGU-uvnmyjsa-mcteuxx thyroid nodule is benign. All the same, [...] a standard gauge needle. KATIE ALMANZA MD Manager [employer] account leader Section of Endocrinology [facility] * Katie Almanza MD - 03/23/2017 10:00 [...] of brown non-viscous fluid. Katie Almanza MD Manager [employer] account leader Section of Endocrinology [facility] * Katie Almanza MD - 03/23/2017 10:00 [...] present during the procedure. Katie Almanza MD Manager [employer] account leader Section of Endocrinology documented in this encounter Plan of Treatment Not on file documented as of this encounter Visit Diagnoses Diagnosis Multinodular goiter Nontoxic multinodular goiter documented in this encounter Care Teams Business Manager College [employer] Relationship Specialty Start Date End Date Pradeep Gallardo APRN PCP - General 07/19/10 08/04/24 documented as of this encounter
--- OUTSIDE RECORDS SUMMARY | 2024-09-05 16:52 | XMS_ITS | Encounter Summary ---
[place] [address] Care Team Providers Care Operating Room Coordinator Name Role Phone Pradeep Gallardo APRN Primary Care Provider [phone] Reason for Referral * Consultation (Urgent) - Closed Specialty Diagnoses / Procedures Referred By Contchung t Referred To Contact Gastroenterology Diagnoses Ulcerative colitis without complications, unspecified location w/in 2-4 WEEKS -Ulcerative colitis Alina Mackenzie APRN [address] [place] [address] [facility] Gastro [address] [place] [address] Referral ID Status Reason Start Date Expiration Date V isits Requested Visits Authorized [id number] Closed Consult, Test & Treat PCP Updated and/or Approved 08/01/2022 08/01/2023 6 6 Encounter Details Date Type Department Care Team (Late st Contact Info) Description 08/01/2022 Transcribe Orders eDH Incoming Referrals [phone] Alina Mackenzie APRN [address] [place] [address] Ulcerative colitis without complications, unspecified [...] location documented in this encounter Care Teams Operating Room Coordinator Relationship Specialty Start Date End Date Pradeep Gallardo APRN PCP - General 07/19/10 08/04/24 documented as of this encounter
--- OUTSIDE RECORDS SUMMARY | 2024-09-05 16:52 | XMS_ITS | Encounter Summary ---
[place] [address] Care Team Providers Care Mds Rn Name Role Phone Pradeep Gallardo APRN Primary Care Provider Reason for Visit * Reason Comments Thyroid Nodule Encounter Details Date Type Department Care Team (Late st Contact Info) Description 03/12/2018 3:30 PM EDT Office [place] [phone] Katie Omalley MD Thyroid nodule Social History Tobacco Use Types [...] in this encounter Progress Notes * Katie Omalley MD - 03/12/2018 3:30 PM EDT Endocrinology [...] Office Visit from 03/12/2018 in Endocrinology at [facility] Weight 67.1 kg (148 lb) Height 158.8 [...] reassessment of symptomatic L thyroid nodule KATIE OMALLEY MD Drapery Operatorcrystal calibrator Section of Endocrinology [facility] * Katie Omalley MD - 03/12/2018 3:30 PM EDT THYROID [...] in many small pockets of fluid. Katie Omalley MD Drapery Operatorcrystal calibrator Section of Endocrinology [facility] documented in this encounter Plan of Treatment [...] Thyroglob Ab <20.0 0.0 - 40.0 IU/mL [facility] Blood specimen (specimen) 03/12/2018 4:06 PM EDT 03/13/2018 7:24 AM EDT Narrative Resulting Agency Comment Spec In Lab Katie Omalley MD LAB SEND OUT ORDERAB LES Performing Organization Address City/[facility]/ZIP Co de Phone Number [facility] [place] [address] * (ABNORMAL) Thyroid peroxidase antibody (03/12/2018 4:06 PM EDT) Thyroperoxidase Ab 89(H) <=34 IU/mL [facility] Blood specimen (specimen) 03/12/2018 4:06 PM EDT 03/13/2018 7:24 AM EDT Narrative Resulting Agency Comment Spec In Lab Katie Omalley MD IMMUNOLOGY ORDERABLE S Performing Organization Address City/[facility]/ZIP Co de Phone Number [facility] [place] [address] * T3 Total (03/12/2018 4:06 PM EDT) T3 Total 101 75 - 170 ng/dL [facility] Blood specimen (specimen) 03/12/2018 4:06 PM EDT 03/12/2018 4:16 PM EDT Narrative Resulting Agency Comment Spec In Lab Katie Omalley MD CHEMISTRY ORDERABLES Performing Organization Address City/[facility]/ZIP Co de Phone Number [facility] [place] [address] * T4, free (03/12/2018 4:06 PM EDT) Free T4 1.22 0.93 - 1.70 ng/dL [facility] Blood specimen (specimen) 03/12/2018 4:06 PM EDT 03/12/2018 4:16 PM EDT Narrative Resulting Agency Comment Spec In Lab Katie Omalley MD CHEMISTRY ORDERABLES Performing Organization Address City/[facility]/ZIP Co de Phone Number [facility] [place] [address] * TSH (03/12/2018 4:06 PM EDT) Thyroid Stimulating Hormone 1.49 0.27 - 4.20 mlU/ML [facility] Blood specimen (specimen) 03/12/2018 4:06 PM EDT 03/12/2018 4:16 PM EDT Narrative Resulting Agency Comment Spec In Lab Katie Omalley MD CHEMISTRY ORDERABLES Performing Organization Address City/[facility]/ZIP Co de Phone Number [facility] [place] [address] documented in this encounter Visit Diagnoses Diagnosis Thyroid nodule Nontoxic uninodular goiter documented in this encounter Care Teams Mds Rn Relationship Specialty Start Date End Date Pradeep Gallardo APRN PCP - General 07/19/10 08/04/24 documented as of this encounter
--- OUTSIDE RECORDS SUMMARY | 2024-09-05 16:52 | XMS_ITS | Encounter Summary ---
[facility] Organization [facility] [place] [address] Care Team Providers Care Machine Printer Name Role Phone Pradeep Gallardo APRN Primary Care Provider [phone] Reason for Visit * Reason Comments Abdominal Pain Diarrhea * Auth/Cert (Routine) Specialty Diagnoses / Procedures Referred By Contac t Referred To Contact Diagnoses Ulcerative colitis Procedures emerg [place] [address] [facility] Referral ID Status Reason Start Date Expiration Date Visits Re quested Visits Authorized [id number] 1 1 Encounter Details Date Type Department Care Team (Latest Contact Info) Description 08/09/2022 9:58 AM EST - 08/14/2022 2:38 PM EST Hospital Encounter Card[place] [address] Basil De La Rosa MD [facility] [place] [address] [place] [address] Tyler Esqueda MD Ulcerative colitis (Primary Dx) Discharge Disposition: Home [...] Elsa Londono Patient Age: 61 y.o. Language: Northern Irish Race: White Ethnicity: Not nor Admit date: 08/09/2022 Discharge date and time: 08/14/2022 Attending Physician: Tyler Esqueda MD Discharge Physician: Tyler Esqueda MD PCP: Aria Thompson MD ([phone]) Chief Complaint Patient presents with ??? Abdominal [...] started on PPI and PJP prophylaxis given alf steroid use. #Iron deficiency anemia # Suspected [...] Studies and Lab Data: CBC: Recent Labs 08/14/2251108/13/22 0501 08/12/22 0722 WBC 14.4* 9.3 8.3 HGB 7.7* 8.3* 7.3* HCT 22.8* 25.4* 22.6* PLATELET 621* 662* 577* NEUTROABS 6.22* 5.29 4.01 Chemistry: Recent Labs 08/14/22 0508/13/22 0501 08/12/22 0722 NA 129* 134* 134* [...] in the last 7068 hours. Invalid input(s): XPBEVMMCYEB2K No results for input(s): HA1C in the last 7068 hours. Lipids: Heme: No results for input(s): LDH, HAPTOGLOBIN, URICACID in the last 168 hours. ABG (Arterial Blood Gas): No results found for: PHART, PO2ART, FWT7SNW, OXO6WWK VBG (Venous Blood Gas): No results for input(s): PHVEN, VNZ8XCF, PO2VEN, HCO2EIU, BEVEN, LJM3YHE in the last 72 hours. EKG: No results found for: DIAGLINE, QTCCALC Vascular: No results found for: VBTEXTRPT Microbiology: Microbiology Results (Last 30 days) Procedure Component Value Units Date/Time C. Difficile Screen [[id number]] Collected: 08/09/22 191 Lab Status: Final result Specimen: Stool Updated: [...] Precautions are still required. Stool Culture Screen ([facility]/CGP/APD/NLH) [[id number]] Collected: 08/09/221917 Lab Status: Final result Specimen: Stool Updated: 08/12/22714 Fecal Lactoferrin [[id number]] (Abnormal) Collected: 08/09/221917 Lab Status: Final result Specimen: Stool Updated: 08/09/22 2149 Stool WBC Positive Stool culture [[id number]] Collected: 08/09/221917 Lab Status: Final result Specimen: Stool Updated: 08/12/22 07 Stool Culture No enteric pathogens isolated Campylobacter Antigen [[id number]] Collected: 08/09/221917 Lab Status: Final result Specimen: Stool Updated: 08/10/22 022 Campylobacter Ag Immunoassay Negative for Campylobacter Antigen Shiga Toxin Detection [[id number]] Collected: 08/09/221917 Lab Status: Final result Specimen: [...] Center 09/25/2022 4:00 PM Joanne Montague APRN [facility] GASTRO [facility] Appointment: You have a hospital follow up appointment with your primary care provider, Dr. Aria Thompson, Tuesday August 23, 2022 11:30 Your Inpatient Medical Team at [facility] Name(s) of your inpatient provider(s): Tyler Esqueda MD Your Primary Care Provider: Aria Thompson MD [phone] For questions regarding this document or issues relating to this hospitalization on the Medical Service, please contact your inpatient physician through the [facility] [employer] . Issues afterhours and on weekends will be handled by the Hospitalist staff on-call. General Instructions None Future Appointments and Orders Future Appointments and Orders Future Appointments Provider Department Dept Phone 09/25/2022 4:00 PM Joanne Montague APRN Gastroenterology at [facility] Arrive at: Rn On Site Area [phone] Provider Contact Information: Aria Thompson MD [address] [place] [address] Discharge References/Attachments: Discharge References/Attachments None documented in [...] Center 09/25/2022 4:00 PM Joanne Montague APRN [facility] GASTRO [facility] Appointment: You have a hospital follow up appointment with your primary care provider, Dr. Aria Thompson, Tuesday August 23, 2022 11:30 Your Inpatient Medical Team at [facility] Name(s) of your inpatient provider(s): Tyler Esqueda MD Your Primary Care Provider: Aria Thompson MD [phone] For questions regarding this document or issues relating to this hospitalization on the Medical Service, please contact your inpatient physician through the [facility] [employer] . Issues afterhours and on weekends will [...] spent >30 minutes (Day of Discharge Code 71158) involved in the final examination of the [...] encounter: 64 kg (141 lb 1.5 oz). Thayer Body Weight: WNL Usual Body Weight: see [...] sensitive to high sugar foods, will send Glucerjerry. Estimated needs: Calories: 3629-0044 (22-25 kcal/kg) Protein: 76 grams (1.2g/kg) Nutrition Focused Physical Exam (NFPE): Not performed Protein-calorie Malnutrition: Not identified (DANIELLE Soni J Parenteral Enteral Nutr. 2011; 36(3): 273-83) Nutrition to continue to follow up while inpatient Daksha Bhatti RD Pager #:[phone] * Janice Villarreal - 08/14/2022 7:00 AM [...] M.D. Fellow in Gastroenterology and Hepatology Pager #[phone] 08/13/2022 Associated attestation - Jony Newberry MD [...] nor perforation. ASSESSMENT & PLAN: Elsa Khant 61 y.o./ w/ PMH of panulcerative colitis [...] M.D. Fellow in Gastroenterology and Hepatology Pager #[phone] 08/12/2022 ATTENDING ATTESTATION: I have seen and [...] documented. Hermila East MD Gastroenterology attending Pager [phone] * Marc Cunningham MD - 08/13/2022 7:27 AM EST Inpatient Hospital Medicine Progress Note Patient Name: ELSA LONDONO Date of : 1960 Age: 61 y.o. Hospital Admit Date: 08/09/2022 Hospital Day: 4 Inpatient Attending: Tyler Esqueda MD PCP: Derrick Mir MD ([phone]) Chief Complaint Patient presents with ??? Abdominal [...] air) Intake/Output Summary (Last 24 hours) at 08/13/2022726 Last data filed at 08/12/2022 1600 Gross [...] LABS: CBC: Recent Labs 08/13/22 0501 08/12/22 0722 08/11/22 0709 WBC 9.3 8.3 8.2 HGB 8.3* [...] in the last 7068 hours. Invalid input(s): [id number] No results for input(s): HA1C in the last 7068 hours. Lipids: Heme: No results for input(s): LDH, HAPTOGLOBIN, URICACID in the last 168 hours. ABG (Arterial Blood Gas): No results found for: PHART, PO2ART, YMZ8LZJ, UZZ3GYF VBG (Venous Blood Gas): No results for input(s): PHVEN, XYD1THY, PO2VEN, OBS6ENE, BEVEN, WDP6UQS in the last 72 hours. 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 Fellow in Gastroenterology and Hepatology Pager #[phone] 08/11/2022 ATTENDING ATTESTATION: I have seen and [...] documented. Hermila East MD Gastroenterology attending Pager [phone] * Jenise Tijerina MD - 08/12/2022 8:28 AM EST Inpatient Hospital Medicine Progress Note Patient Name: ELSA LONDONO Date of : 1960 Age: 61 y.o. Hospital Admit Date: 08/09/2022 Hospital Day: 3 Inpatient Attending: Tyler Esqueda MD PCP: Derrick Mir MD ([phone]) Chief Complaint Patient presents with ??? Abdominal [...] in the last 7068 hours. Invalid input(s): [id number] No results for input(s): HA1C in the last 7068 hours. Lipids: Heme: No results for input(s): LDH, HAPTOGLOBIN, URICACID in the last 168 hours. ABG (Arterial Blood Gas): No results found for: PHART, PO2ART, VET7JSM, PUA9RGX VBG (Venous Blood Gas): No results for input(s): PHVEN, FDZ0EML, PO2VEN, RMI0CBT, BEVEN, KRC2PZN in the last 72 hours. 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 #Seizure disorder - continue home trileptal 300mg 3.5 tabs nightly #Housekeeping: DVT PPx: LMWH GI PPx: Pantoprazole 40 mg Diet: Regular diet Lines: Peripheral IV Line - Single Lumen 08/11/222012 22 gauge;1 in length (Active) Number of days: 0 D/c planning: Pending medical stabilization Code status: Full code Jenise Tijerina MD Internal Medicine PGY2 Medicine Team: Wesly Cobian Associated attestation - Tyler Esqueda MD - [...] of two midnights or is on the [facility] inpatient only procedure list (status C) [...] Jeremy Metzger MD PCP: Derrick Mir MD ([phone]) Chief Complaint Patient presents with ??? Abdominal [...] in the last 7068 hours. Invalid input(s): TUQNMCNSDQR8N No results for input(s): HA1C in the last 7068 hours. Lipids: Heme: No results for input(s): LDH, HAPTOGLOBIN, URICACID in the last 168 hours. ABG (Arterial Blood Gas): No results found for: PHART, PO2ART, IZU3LVS, ZDE8HIJ VBG (Venous Blood Gas): No results for input(s): PHVEN, DFC5JLG, PO2VEN, WXO7LZD, BEVEN, UUL9JQP in the last 72 hours. EKG: No [...] who have questions please contact the health outdoor emergency care technician that requested your imaging first. Electronically signed by: Kiara Chance MD, [facility] [place] [facility] ([phone]), at 08/09/2022 1:09 PM Medications: Scheduled: ??? [...] underlying UC. [facility] but per staff, the attending will not be back in the hospital until Sunday and gurmeetll follow up with [facility] at that time. Iron studies demonstrated iron deficiency anemia, patient was unable to tolerate iron infusion. We will start PO supplementation here in the hospital. We will also start PPI and PJP prophylaxis given alf use of steroids. Plan: - Possible remicade infusion - IV steroids - PO iron qod - PPI and atovaquone #Ulcerative colitis, acute flare - Flex sig 08/07/22 bx at [facility]: chronic moderately active colitis in transverse, descending, sigmoid, and proctitis - current outpt regimen: Entyvio 300mg IV q8 weeks, last received 11/23/22, prednisone 40mg daily - s/p 1 L LR in the ED - Daily CRP: 30 -> 21 -> 44.4 - Fecal lactoferrin positive, fecal calprotectin > 2000 - f/u ova and parasites - C. 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 #Seizure disorder - continue [...] Cunningham MD Internal Medicine PGY1 Medicine Team: Mango, 4500 Associated attestation - Jermey Metzger MD - 08/11/2022 6:07 PM EST [...] OR ondansetron Physical Examination Vitals: 08/09/22 0942 08/09/22202108/10/22 0331 08/10/22 0817 BP: 126/83 153/86 122/61 [...] M.D. Fellow in Gastroenterology and Hepatology Pager #[phone] 08/10/2022 Attending Addendum: I interviewed and examined the patient with Dr. Villarreal on rounds. I confirm the history and castro physical findings outlined in this note. The assessment and plan were formulated in discussion with me atthe time of this encounter, and I agree with them as documented. Nadia Orellana MD Gastroenterology and hepatology Pager: [phone] * Marc Cunningham MD - 08/10/2022 7:19 [...] in the last 7068 hours. Invalid input(s): ZOESVHPPENQ9Y No results for input(s): HA1C in the last 7068 hours. Lipids: Heme: No results for input(s): LDH, HAPTOGLOBIN, URICACID in the last 168 hours. ABG (Arterial Blood Gas): No results found for: PHART, PO2ART, CMM7YMR, LDD7CTF VBG (Venous Blood Gas): No results for input(s): PHVEN, HGC3DZK, PO2VEN, DDD8MRL, BEVEN, PKD7ZZH in the last 72 hours. EKG: No [...] who have questions please contact the health outdoor emergency care technician that requested your imaging first. Electronically signed by: Kiara Chance MD, [facility] ([phone]), at 08/09/2022 1:09 PM Medications: Scheduled: ??? [...] underlying UC. [facility], but per staff, [...] Will start atovaquone for PJP prophylaxis given alf steroid use ?? #Seizure disorder - continue [...] Cunningham MD Internal Medicine PGY1 Medicine Team: Mango, 4500 Associated attestation - Jeremy Metzger MD [...] Infusions: ??? lactated Ringers 100 mL/hr (08/09/22 190) PRN Meds:.sodium chloride 0.9 % (flush), lidocaine, [...] M.D. Fellow in Gastroenterology and Hepatology Pager #[phone] 08/09/2022 Attending Addendum: I interviewed and examined the patient with Dr. Villarreal. I confirm the history and castro physical findings outlined in this note. The assessment and plan were formulated in discussion with me at the time of this encounter, and I agree with them as documented. Nadia Orellana MD Gastroenterology and hepatology Pager: [phone] documented in this encounter H&P Notes * [...] who have questions please contact the health outdoor emergency care technician that requested your imaging first. Electronically signed by: Kiara Chance MD, [facility] ([phone]), at 08/09/2022 1:09 PM ASSESSMENT and PLAN: [...] flare - Flex sig 08/07/22 bx at [facility]: chronic moderately active colitis in transverse, descending, [...] Aria Thompson MD (2017April 2017 - Present) [address] [place], [place] [id number] [place] [address] #Housekeeping: - DVT PPx: SCDs due to hematochezia - Diet: Clear Liquid - Level of care: Med/Surg - Vitals: q6h while awake - Code Satus: Full Jenise Tijerina MD Internal Medicine PGY2 Green Team, Pager [phone] Associated attestation - Jeremy Metzger MD - [...] was being evaluated and treated by her water filtration technician with courses of st eroids as well [...] that she was referred here by her water filtration technician for admission for further GI evaluation and [...] team request ED GI consultation. GI paged. [phone] GI consulted. They agree with admission. They have requested additional stool studies and a CRP which I have ordered. Will admit to medicine. Basil D eLa Rosa MD 08/09/22 1437 * Sahra Neville [...] absolutely would get another one. Pt's RN Mandy notified. * Plan of Care - Rand [...] reach. 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 (Only good for 180 days) Any patient receiving care in [place] must abide by [place] law. The hierarchy for surrogate decision making [...] (i) The agent with financial power of director workforce management or a conservator appointed in accordance with [...] none Home Address confirmed as: [address] [address] Social & Family Supports: All names listed below confirmed with patient as current and correct Extended Emergency Contact Information Primary Emergency Contact: Bartolo Londono Address: [address] [place] [address] [place] Relation: Spouse Current [...] Pertinent/Service Specific Information: Health/Prescription Coverage: Primary Insurance[place] Intern [place] / Plan[place] / Product Type: *No Product type* / Secondary Insurance: N/A ; Prescription Coverage: Yes Preferred Pharmacy: [facility] [address] [place], [place] - [address] [facility] [address] [address] Status: Patient is a : No Primary [...] of care planning. Louann PONCE Emergency Department School Bus Attendant [phone] Pager: [phone] * Consult Note - Nadia Orellana MD [...] who have questions please contact the health outdoor emergency care technician that requested your imaging first. Electronically signed by: Kiara Chance MD, [facility] ([phone]), at 08/09/2022 1:09 PM ENDOSCOPY: Reports and [...] (pt reports these were done recently at [place] prior to starting Entyvio) - will monitor [...] Nadia Orellana MD Gastroenterology and hepatology Pager: [phone] * ED Triage - Sahra Neville RN [...] 5:12 AM EST HEPATIC FUNCTION PANEL Routine 5:12 AM EST BASIC METABOLIC PANEL Routine 08/14/2022 5:12 AM EST ORDS - PROVIDER CARE SCAN 08/14/2022 12:00 AM EST HC C-REACTIVE PROTEIN Routine 08/13/2022 5:01 AM EST HEMOGRAM Routine 08/13/2022 5:01 AM EST DIFFERENTIAL, AUTOMATED Routine 08/13/2022 5:01 AM EST HC VENIPUNCTURE Routine 08/13/2022 5:01 AM EST PHOSPHORUS Routine 08/13/2022 5:01 AM EST MAGNESIUM Routine 08/13/2022 5:01 AM EST HEPATIC FUNCTION PANEL Routine 5:01 AM EST BASIC METABOLIC PANEL Routine 08/13/2022 5:01 AM EST HC C-REACTIVE PROTEIN Routine 08/12/2022 7:22 AM EST HEMOGRAM Routine 08/12/2022 7:22 AM EST DIFFERENTIAL, AUTOMATED Routine 08/12/2022 7:22 AM EST HC VENIPUNCTURE Routine 08/12/2022 7:22 AM EST HEPATIC FUNCTION PANEL Routine 7:22 AM EST BASIC METABOLIC PANEL Routine 08/12/2022 7:22 AM EST HC C-REACTIVE PROTEIN Routine 08/11/2022 7:09 AM EST HEMOGRAM Routine 08/11/2022 7:09 AM EST DIFFERENTIAL, AUTOMATED Routine 08/11/2022 7:09 AM EST HC VENIPUNCTURE Routine 08/11/2022 7:09 AM EST HEPATIC FUNCTION PANEL Routine 7:09 AM EST BASIC METABOLIC PANEL Routine 08/11/2022 7:09 AM EST HC QUANTIFERON [...] Routine 1:16 AM EST BASIC METABOLIC PANEL Routine 08/10/2022 1:16 AM EST HC STOOL [...] STAT 10:46 AM EST BASIC METABOLIC PANEL STAT 08/09/2022 10:46 AM EST documented in this encounter Results * (ABNORMAL) Osmolality (08/14/2022 5:12 AM EST) [facility] Osmolality 267(L) 275 - 295 mOsm/kg [facility] Blood Venous Draw / Unknown 08/14/2022 5:12 AM EST 08/14/2022 5:32 AM EST Narrative Resulting Agency Comment Spec In Lab Marc Cunningham MD CHEMISTRY ORDERABLES Performing Organization Address City/[facility]/ZIP Co de Phone Number [facility] [place] [address] * Scan, Peripheral Blood (08/14/2022 5:12 AM EST) [facility] Plat estimate Increased [facility] RBC Morphology Abnormal [facility] Hypochromia Slight [facility] Ovalocytes 1-5 /HPF [facility] Blood 08/14/2022 5:12 AM EST 08/14/2022 5:27 AM EST Narrative Resulting Agency Comment Spec In Lab Jenise Tijerina MD HEMATOLOGY ORDERABLE S [facility] [place] [address] * (ABNORMAL) Differential, Automated (08/14/2022 5:12 AM EST) Pathologist [facility] Neutrophil % 43.3 % [facility] Neutrophil Absolute 6.22(H) 1.70 - 6.10 x10(3)/mc L [facility] Lymph % 43.3 % [facility] Lymphocytes Abs 6.2(H) 0.9 - 3.2 x10(3)/ L [facility] Monocyte % 9.5 % [facility] Monocyte Abs 1.4(H) 0.3 - 0.9 x10(3)/ L [facility] Eos % 2.4 % [facility] Eosinophils Abs 0.3 0.0 - 0.4 x10(3)/ L [facility] Basophil % 0.4 % [facility] Baso Absolute 0.1 0.0 - 0.1 x10(3)/ L [facility] Immature Gran % 1.10 % [facility] Comment: Immature granulocytes(IG's)percentage and absolute count will include metamyelocytes, myelocytes, and promyelocytes. Blood smears from CBCs yielding IG's will be scanned manually for concordance. If this scan disagrees with the automated IG or if promyelocytes are noted, a manual differential will be performed. Immature Gran Absolute 0.16(H) 0.00 - 0.04 x10(3)/ L [facility] Blood 08/14/2022 5:12 AM EST 08/14/2022 5:27 AM EST Narrative Resulting Agency Comment Spec In Lab Jenise Tijerina MD HEMATOLOGY ORDERABLE S [facility] [place] [address] * (ABNORMAL) Hemogram (08/14/2022 5:12 AM EST) White Blood Cell 14.4(H) 4.0 - 9.5 x10(3)/ L [facility] Red Blood Cell 2.62(L) 4.00 - 5.21 x10(6)/[facility] Hemoglobin 7.7(L) 11.7 - 15.5 g/dL [facility] Hematocrit 22.8(L) 35.7 - 45.8 % [facility] Mean Cell Volume 87.0 82.6 - 94.4 fL [facility] Mean Cell Hemoglobin 29.4 27.1 - 32.0 pg [facility] Mean Cell Hemoglobin Concentration 33.8 31.7 - 35.0 g/dL [facility] Platelet 621(H) 145 - 357 x10(3)/mc L [facility] RDW Standard Deviation 47.9(H) 37.0 - 46.0 fL [facility] RDW coefficient of variation 15.2(H) 11.5 - 14.1 % [facility] Mean Platelet Volume 8.0 7.6 - 12.9 fL [facility] NRBC% auto 0.0 % [facility] NRBC Absolute 0.000 0.000 - 0.000 x10(3)/mc L [facility] Blood 08/14/2022 5:12 AM EST 08/14/2022 5:32 AM EST Narrative Resulting Agency Comment Spec In Lab Marc Cunningham MD HEMATOLOGY ORDERABLE S Performing Organization Address [facility] Co de Phone Number [facility] [place] [address] * (ABNORMAL) CRP, acute inflammation (08/14/2022 5:12 AM EST) C-Reactive Protein 9.9(H) <=4.9 mg/L [facility] Blood 08/14/2022 5:12 AM EST 08/14/2022 5:27 AM EST Narrative Resulting Agency Comment Spec In Lab Jeremy Metzger MD CHEMISTRY ORDERABLES Performing Organization Address [facility] Co de Phone Number [facility] [place] [address] * (ABNORMAL) Hepatic Function Panel (08/14/2022 5:12 AM EST) Protein, Total 4.8(L) 6.1 - 8.0 g/dL [facility] Albumin 2.8(L) 3.2 - 5.2 g/dL [facility] Aspartate Aminotransferase 12 0 - 30 unit/L [facility] Alanine Aminotransferase 11 0 - 30 unit/L [facility] Alkaline Phosphatase 47 35 - 105 unit/L [facility] Bilirubin, Total <0.2(L) 0.2 - 1.3 mg/dL [facility] Bilirubin, Direct <0.1 0.0 - 0.3 mg/dL [facility] Blood 08/14/2022 5:12 AM EST 08/14/2022 5:27 AM EST Narrative Resulting Agency Comment Spec In Lab Jeremy Metzger MD CHEMISTRY ORDERABLES [facility] [place] [address] * (ABNORMAL) Basic Metabolic Panel (non-fasting) (08/14/2022 5:12 AM EST) Glucose 86 65 - 199 mg/dL [facility] Comment:Diabetes: >=200 mg/d L plus symptoms Blood Urea Nitrogen 14 8 - 18 mg/dL [facility] Creatinine 0.65(L) 0.70 - 1.20 mg/dL [facility] Sodium 129(L) 135 - 145 mmol/L [facility] Potassium 3.7 3.5 - 5.0 mmol/L [facility] Comment: Please note: ??Patients with WBC >100,000 may have falsely elevated Potassium levels. ??For accurate Potassium quantification in these patients send serum separator tube (gold top) for subsequent determinations. ??Contact the Clinical Chemistry Laboratory if there are any questions. Chloride 94(L) 98 - 107 mmol/L [facility] Carbon Dioxide 29 22 - 31 mmol/L [facility] Anion Gap 6 5 - 15 mmol/L [facility] Calcium 7.9(L) 8.5 - 10.5 mg/dL [facility] Est Glomerular Filtration Rate 99 >=60 mL/min/1. 73 m?? [facility] Comment: This patient's estimated [...] Metzger MD CHEMISTRY ORDERABLES Performing Organization Address City/[facility]/ZIP Co de Phone Number [facility] [place] [address] * SCAN DOC: ORDS - PROVIDER CARE (08/14/2022 12:00 AM EST) Narrative 08/14/2022 12:00 AM EST Ordered by an unspecified provider. Scanning Provider MEDIA MGR SCAN EXT O RDR/RSLT * (ABNORMAL) Phosphorus (08/13/2022 5:01 AM EST) Phosphorus 2.4(L) 2.5 - 4.5 mg/dL [facility] Blood Venous Draw / Unknown 08/13/2022 5:01 AM EST 08/13/2022 5:25 AM EST Narrative Resulting Agency Comment Spec In Lab Marc Cunningham MD CHEMISTRY ORDERABLES Performing Organization Address [facility] Co de Phone Number [facility] [place] [address] * Magnesium (08/13/2022 5:01 AM EST) Magnesium 0.81 0.69 - 1.07 mmol/L [facility] Blood Venous Draw / Unknown 08/13/2022 5:01 AM EST 08/13/2022 5:25 AM EST Narrative Resulting Agency Comment Spec In Lab Marc Cunningham MD CHEMISTRY ORDERABLES Performing Organization Address City/[facility] Co de Phone Number [facility] [place] [address] * (ABNORMAL) Differential, Automated (08/13/2022 5:01 AM EST) Neutrophil % 57.0 % [facility] Neutrophil Absolute 5.29 1.70 - 6.10 x10(3)/mc L [facility] Lymph % 31.4 % [facility] Lymphocytes Abs 2.9 0.9 - 3.2 x10(3)/ L [facility] Monocyte % 10.1 % [facility] Monocyte Abs 0.9 0.3 - 0.9 x10(3)/[facility] Eos % 0.2 % [facility] Eosinophils Abs 0.0 0.0 - 0.4 x10(3)/[facility] Basophil % 0.1 % [facility] Baso Absolute 0.0 0.0 - 0.1 x10(3)/[facility] Immature Gran % 1.20 % [facility] Comment: Immature granulocytes(IG's)percentage and absolute count will include metamyelocytes, myelocytes, and promyelocytes. Blood smears from CBCs yielding IG's will be scanned manually for concordance. If this scan disagrees with the automated IG or if promyelocytes are noted, a manual differential will be performed. Immature Gran Absolute 0.11(H) 0.00 - 0.04 x10(3)/ L [facility] Blood 08/13/2022 5:01 AM EST 08/13/2022 5:23 AM EST Narrative Resulting Agency Comment Spec In Lab Jenise Tijerina MD HEMATOLOGY ORDERABLE S [facility] [place] [address] * (ABNORMAL) Hemogram (08/13/2022 5:01 AM EST) White Blood Cell 9.3 4.0 - 9.5 x10(3)/[facility] Red Blood Cell 2.84(L) 4.00 - 5.21 x10(6)/[facility] Hemoglobin 8.3(L) 11.7 - 15.5 g/dL [facility] Hematocrit 25.4(L) 35.7 - 45.8 % [facility] Mean Cell Volume 89.4 82.6 - 94.4 fL [facility] Mean Cell Hemoglobin 29.2 27.1 - 32.0 pg [facility] Mean Cell Hemoglobin Concentration 32.7 31.7 - 35.0 g/dL [facility] Platelet 662(H) 145 - 357 x10(3)/mc L [facility] RDW Standard Deviation 49.1(H) 37.0 - 46.0 fL [facility] RDW coefficient of variation 15.1(H) 11.5 - 14.1 % [facility] Mean Platelet Volume 8.2 7.6 - 12.9 fL [facility] NRBC% auto 0.0 % [facility] NRBC Absolute 0.000 0.000 - 0.000 x10(3)/mc L [facility] Blood 08/13/2022 5:01 AM EST 08/13/2022 5:25 AM EST Narrative Resulting Agency Comment Spec In Lab Marc Cunningham MD HEMATOLOGY ORDERABLE S Performing Organization Address [facility]/ZIP Co de Phone Number [facility] [place] [address] * (ABNORMAL) CRP, acute inflammation (08/13/2022 5:01 AM EST) C-Reactive Protein 18.7(H) <=4.9 mg/L [facility] Blood 08/13/2022 5:01 AM EST 08/13/2022 5:23 AM EST Narrative Resulting Agency Comment Spec In Lab Jeremy Metzger MD CHEMISTRY ORDERABLES Performing Organization Address [facility] Co de Phone Number [facility] [place] [address] * (ABNORMAL) Hepatic Function Panel (08/13/2022 5:01 AM EST) Protein, Total 5.4(L) 6.1 - 8.0 g/dL [facility] Albumin 3.1(L) 3.2 - 5.2 g/dL [facility] Aspartate Aminotransferase 9 0 - 30 unit/L [facility] Alanine Aminotransferase 8 0 - 30 unit/L [facility] Alkaline Phosphatase 54 35 - 105 unit/L [facility] Bilirubin, Total <0.2(L) 0.2 - 1.3 mg/dL [facility] Bilirubin, Direct <0.1 0.0 - 0.3 mg/dL [facility] Blood 08/13/2022 5:01 AM EST 08/13/2022 5:23 AM EST Narrative Resulting Agency Comment Spec In Lab Jeremy Metzger MD CHEMISTRY ORDERABLES [facility] [place] [address] * (ABNORMAL) Basic Metabolic Panel (non-fasting) (08/13/2022 5:01 AM EST) Glucose 125 65 - 199 mg/dL [facility] Comment:Diabetes: >=200 mg/d L plus symptoms Blood Urea Nitrogen 15 8 - 18 mg/dL [facility] Creatinine 0.62(L) 0.70 - 1.20 mg/dL [facility] Sodium 134(L) 135 - 145 mmol/L [facility] Potassium 3.7 3.5 - 5.0 mmol/L [facility] Comment: Please note: ??Patients with WBC >100,000 may have falsely elevated Potassium levels. ??For accurate Potassium quantification in these patients send serum separator tube (gold top) for subsequent determinations. ??Contact the Clinical Chemistry Laboratory if there are any questions. Chloride 97(L) 98 - 107 mmol/L [facility] Carbon Dioxide 29 22 - 31 mmol/L [facility] Anion Gap 8 5 - 15 mmol/L [facility] Calcium 8.4(L) 8.5 - 10.5 mg/dL [facility] Est Glomerular Filtration Rate 100 >=60 mL/min/1. 73 m?? [facility] Comment: This patient's estimated [...] In Lab Jeremy Metzger MD CHEMISTRY ORDERABLES [facility] [place] [address] * (ABNORMAL) Differential, Automated (08/12/2022 7:22 AM EST) Neutrophil % 48.5 % [facility] Neutrophil Absolute 4.01 1.70 - 6.10 x10(3)/mc L [facility] Lymph % 38.6 % [facility] Lymphocytes Abs 3.2 0.9 - 3.2 x10(3)/mc L [facility] Monocyte % 11.2 % [facility] Monocyte Abs 0.9 0.3 - 0.9 x10(3)/mc L [facility] Eos % 0.5 % [facility] Eosinophils Abs 0.0 0.0 - 0.4 x10(3)/mc L [facility] Basophil % 0.4 % [facility] Baso Absolute 0.0 0.0 - 0.1 x10(3)/mc L [facility] Immature Gran % 0.80 % [facility] Comment: Immature granulocytes(IG's)percentage and absolute count will include metamyelocytes, myelocytes, and promyelocytes. Blood smears from CBCs yielding IG's will be scanned manually for concordance. If this scan disagrees with the automated IG or if promyelocytes are noted, a manual differential will be performed. Immature Gran Absolute 0.07(H) 0.00 - 0.04 x10(3)/mc L [facility] Blood 08/12/2022 7:22 AM EST 08/12/2022 7:34 AM EST Narrative Resulting Agency Comment Spec In Lab Jenise Tijerina MD HEMATOLOGY ORDERABLE S [facility] [place] [address] * (ABNORMAL) Hemogram (08/12/2022 7:22 AM EST) White Blood Cell 8.3 4.0 - 9.5 x10(3)/mc L [facility] Red Blood Cell 2.54(L) 4.00 - 5.21 x10(6)/mc L [facility] Hemoglobin 7.3(L) 11.7 - 15.5 g/dL [facility] Hematocrit 22.6(L) 35.7 - 45.8 % [facility] Mean Cell Volume 89.0 82.6 - 94.4 fL [facility] Mean Cell Hemoglobin 28.7 27.1 - 32.0 pg [facility] Mean Cell Hemoglobin Concentration 32.3 31.7 - 35.0 g/dL [facility] Platelet 577(H) 145 - 357 x10(3)/mc L [facility] RDW Standard Deviation 49.4(H) 37.0 - 46.0 fL [facility] RDW coefficient of variation 15.0(H) 11.5 - 14.1 % [facility] Mean Platelet Volume 8.0 7.6 - 12.9 fL [facility] NRBC% auto 0.0 % [facility] NRBC Absolute 0.000 0.000 - 0.000 x10(3)/mc L [facility] Blood 08/12/2022 7:22 AM EST 08/12/2022 7:34 AM EST Narrative Resulting Agency Comment Spec In Lab Jenise Tijerina MD HEMATOLOGY ORDERABLE S [facility] [place] [address] * (ABNORMAL) CRP, acute inflammation (08/12/2022 7:22 AM EST) C-Reactive Protein 39.1(H) <=4.9 mg/L [facility] Blood 08/12/2022 7:22 AM EST 08/12/2022 7:34 AM EST Narrative Resulting Agency Comment Spec In Lab Jeremy Metzger MD CHEMISTRY ORDERABLES Performing Organization Address [facility] Co de Phone Number [facility] [place] [address] * (ABNORMAL) Hepatic Function Panel (08/12/2022 7:22 AM EST) Protein, Total 5.0(L) 6.1 - 8.0 g/dL [facility] Albumin 2.6(L) 3.2 - 5.2 g/dL [facility] Aspartate Aminotransferase 9 0 - 30 unit/L [facility] Alanine Aminotransferase 9 0 - 30 unit/L [facility] Alkaline Phosphatase 49 35 - 105 unit/L [facility] Bilirubin, Total <0.2(L) 0.2 - 1.3 mg/dL [facility] Bilirubin, Direct <0.1 0.0 - 0.3 mg/dL [facility] Blood 08/12/2022 7:22 AM EST 08/12/2022 7:34 AM EST Narrative Resulting Agency Comment Spec In Lab Jeremy Metzger MD CHEMISTRY ORDERABLES Performing Organization Address [facility] Co de Phone Number [facility] [place] [address] * (ABNORMAL) Basic Metabolic Panel (non-fasting) (08/12/2022 7:22 AM EST) Glucose 103 65 - 199 mg/dL [facility] Comment:Diabetes: >=200 mg/d L plus symptoms Blood Urea Nitrogen 11 8 - 18 mg/dL [facility] Creatinine 0.47(L) 0.70 - 1.20 mg/dL [facility] Sodium 134(L) 135 - 145 mmol/L [facility] Potassium 3.6 3.5 - 5.0 mmol/L [facility] Comment: Please note: ??Patients with WBC >100,000 may have falsely elevated Potassium levels. ??For accurate Potassium quantification in these patients send serum separator tube (gold top) for subsequent determinations. ??Contact the Clinical Chemistry Laboratory if there are any questions. Chloride 99 98 - 107 mmol/L [facility] Carbon Dioxide 26 22 - 31 mmol/L [facility] Anion Gap 9 5 - 15 mmol/L [facility] Calcium 8.1(L) 8.5 - 10.5 mg/dL [facility] Est Glomerular Filtration Rate 107 >=60 mL/min/1. 73 m?? [facility] Comment: This patient's estimated [...] In Lab Jeremy Metzger MD CHEMISTRY ORDERABLES [facility] [place] [address] * (ABNORMAL) Differential, Automated (08/11/2022 7:09 AM EST) Neutrophil % 63.2 % [facility] Neutrophil Absolute 5.17 1.70 - 6.10 x10(3)/mc L [facility] Lymph % 25.8 % [facility] Lymphocytes Abs 2.1 0.9 - 3.2 x10(3)/mc L [facility] Monocyte % 9.3 % [facility] Monocyte Abs 0.8 0.3 - 0.9 x10(3)/mc L [facility] Eos % 0.4 % [facility] Eosinophils Abs 0.0 0.0 - 0.4 x10(3)/mc L [facility] Basophil % 0.7 % [facility] Baso Absolute 0.1 0.0 - 0.1 x10(3)/mc L [facility] Immature Gran % 0.60 % [facility] Comment: Immature granulocytes(IG's)percentage and absolute count will include metamyelocytes, myelocytes, and promyelocytes. Blood smears from CBCs yielding IG's will be scanned manually for concordance. If this scan disagrees with the automated IG or if promyelocytes are noted, a manual differential will be performed. Immature Gran Absolute 0.05(H) 0.00 - 0.04 x10(3)/mc L [facility] Blood 08/11/2022 7:09 AM EST 08/11/2022 7:27 AM EST Narrative Resulting Agency Comment Spec In Lab Jenise Tijerina MD HEMATOLOGY ORDERABLE S [facility] [place] [address] * (ABNORMAL) Hemogram (08/11/2022 7:09 AM EST) White Blood Cell 8.2 4.0 - 9.5 x10(3)/mc L [facility] Red Blood Cell 2.53(L) 4.00 - 5.21 x10(6)/mc L [facility] Hemoglobin 7.4(L) 11.7 - 15.5 g/dL [facility] Hematocrit 22.3(L) 35.7 - 45.8 % [facility] Mean Cell Volume 88.1 82.6 - 94.4 fL [facility] Mean Cell Hemoglobin 29.2 27.1 - 32.0 pg [facility] Mean Cell Hemoglobin Concentration 33.2 31.7 - 35.0 g/dL [facility] Platelet 575(H) 145 - 357 x10(3)/mc L [facility] RDW Standard Deviation 48.1(H) 37.0 - 46.0 fL [facility] RDW coefficient of variation 14.9(H) 11.5 - 14.1 % [facility] Mean Platelet Volume 8.0 7.6 - 12.9 fL [facility] NRBC% auto 0.0 % [facility] NRBC Absolute 0.000 0.000 - 0.000 x10(3)/mc L [facility] Blood 08/11/2022 7:09 AM EST 08/11/2022 7:27 AM EST Narrative Resulting Agency Comment Spec In Lab Jenise Tijerina MD HEMATOLOGY ORDERABLE S Performing Organization Address [facility] Co de Phone Number [facility] [place] [address] * (ABNORMAL) CRP, acute inflammation (08/11/2022 7:09 AM EST) C-Reactive Protein 44.4(H) <=4.9 mg/L [facility] Blood 08/11/2022 7:09 AM EST 08/11/2022 7:27 AM EST Narrative Resulting Agency Comment Spec In Lab Jeremy Metzger MD CHEMISTRY ORDERABLES Performing Organization Address [facility] Number [facility] [place] [address] * (ABNORMAL) Hepatic Function Panel (08/11/2022 7:09 AM EST) Pathologist [facility] Protein, Total 5.1(L) 6.1 - 8.0 g/dL [facility] Albumin 3.0(L) 3.2 - 5.2 g/dL [facility] Aspartate Aminotransferase 7 0 - 30 unit/L [facility] Alanine Aminotransferase 6 0 - 30 unit/L [facility] Alkaline Phosphatase 52 35 - 105 unit/L [facility] Bilirubin, Total <0.2(L) 0.2 - 1.3 mg/dL [facility] Bilirubin, Direct <0.1 0.0 - 0.3 mg/dL [facility] Blood 08/11/2022 7:09 AM EST 08/11/2022 7:27 AM EST Narrative Resulting Agency Comment Spec In Lab Jeremy Metzger MD CHEMISTRY ORDERABLES Performing Organization Address [facility] Number [facility] [place] [address] * (ABNORMAL) Basic Metabolic Panel (non-fasting) (08/11/2022 7:09 AM EST) Glucose 107 65 - 199 mg/dL [facility] Comment:Diabetes: >=200 mg/d L plus symptoms Blood Urea Nitrogen 7(L) 8 - 18 mg/dL [facility] Creatinine 0.60(L) 0.70 - 1.20 mg/dL [facility] Sodium 132(L) 135 - 145 mmol/L [facility] Potassium 3.0(Criti mal) 3.5 - 5.0 mmol/L [facility] Comment: Called by: YVONNE, Read back by: Brad Hoffman, Date/Time:08/11/22 08:24. Please note: ??Patients with WBC >100,000 may have falsely elevated Potassium levels. ??For accurate Potassium quantification in these patients send serum separator tube (gold top) for subsequent determinations. ??Contact the Clinical Chemistry Laboratory if there are any questions. Chloride 96(L) 98 - 107 mmol/L [facility] Carbon Dioxide 25 22 - 31 mmol/L [facility] Anion Gap 11 5 - 15 mmol/L [facility] Calcium 7.9(L) 8.5 - 10.5 mg/dL [facility] Est Glomerular Filtration Rate 101 >=60 mL/min/1. 73 m?? [facility] Comment: This patient's estimated [...] In Lab Jeremy Metzger MD CHEMISTRY ORDERABLES [facility] [place] [address] * (ABNORMAL) Hemoglobin and Hematocrit, blood (08/10/2022 12:10 PM EST) Hemoglobin 7.8(L) 11.7 - 15.5 g/dL [facility] Hematocrit 23.0(L) 35.7 - 45.8 % [facility] Blood 08/10/2022 12:1 0 PM EST 08/10/2022 12:22 PM EST Narrative Resulting Agency Comment Spec In Lab Jeremy Metzger MD HEMATOLOGY ORDERABLE S Performing Organization Address City/[facility]/ZIP Co de Phone Number [facility] [place] [address] * QuantiFERON-TB Gold (08/10/2022 12:10 PM EST) Quantiferon Nil 0.039 IU/mL [facility] QFT TB Ag1-Nil 0.010 IU/mL [facility] QFT TB Ag2-Nil 0.239 IU/mL [facility] Quantiferon Mitogen-Nil 9.961 IU/mL [facility] Quantiferon-TB Gold Negative Negative [facility] Quantiferon Tb Interp M. tuberculosis infection NOT likely A [...] affect immune function, or other immunological factors. [facility] Blood 08/10/2022 12:1 0 PM EST 08/11/2022 7:34 AM EST Narrative Resulting Agency Comment Spec In Lab Jeremy Metzger MD CHEMISTRY ORDERABLES Performing Organization Address City/[facility]/ZIP Co de Phone Number [facility] [place] [address] * Hepatitis B Core Antibody, Total (08/10/2022 12:10 PM EST) Hepatitis B Core Antibody Negative Negative [facility] Blood 08/10/2022 12:1 0 PM EST 08/10/2022 12:23 PM EST Narrative Resulting Agency Comment Spec In Lab Jeremy Metzger MD CHEMISTRY ORDERABLES Performing Organization Address City/[facility] Co de Phone Number [facility] [place] [address] * Hepatitis B Surface Antibody (08/10/2022 12:10 PM EST) Hepatitis B Surface Antibody, Quantitative 216.0 IU/L [facility] Comment: HepB Surface Ab Quant: Unvaccinated: < 8.5 IU/L Vaccinated: > 11.5 IU/L Hepatitis B Surface Antibody Positive [facility] Comment: Patient is considered to be immune to HBV infection. Expected Results: Vaccinated: Positive Unvaccinated: Negative Blood 08/10/2022 12:1 0 PM EST 08/10/2022 12:23 PM EST Narrative Resulting Agency Comment Spec In Lab Jeremy Metzger MD CHEMISTRY ORDERABLES Performing Organization Address [facility] Co de Phone Number [facility] [place] [address] * Hepatitis B Surface Antibody (08/10/2022 12:10 PM EST) Hepatitis B Surface Antibody, Quantitative 218.0 IU/L [facility] Comment: HepB Surface Ab Quant: Unvaccinated: < 8.5 IU/L Vaccinated: > 11.5 IU/L Hepatitis B Surface Antibody Positive [facility] Comment: Patient is considered to be immune to HBV infection. Expected Results: Vaccinated: Positive Unvaccinated: Negative Blood 08/10/2022 12:1 0 PM EST 08/10/2022 12:23 PM EST Narrative Resulting Agency Comment Spec In Lab Jeremy Metzger MD CHEMISTRY ORDERABLES Performing Organization Address City/[facility]/ZIP Co de Phone Number [facility] [place] [address] * (ABNORMAL) CRP, acute inflammation (08/10/2022 1:16 AM EST) [facility] C-Reactive Protein 21.0(H) <=4.9 mg/L [facility] Blood Venous Draw / Unknown 08/10/2022 1:16 AM EST 08/10/2022 1:18 AM EST Narrative Resulting Agency Comment Spec In Lab Basil De La Rosa MD CHEMISTRY ORDERABLES Performing Organization Address [facility] Co de Phone Number [facility] [place] [address] * Type and Screen Validity (08/10/2022 1:16 AM EST) [facility] T&S only valid at [facility] Comment:This Type and Screen result is only valid at the [facility] Blood 08/10/2022 1:16 AM EST 08/10/2022 1:31 AM EST Narrative Resulting Agency Comment Spec In Lab Jenise Tijerian MD BLOOD BANK LAB ORDER JUNE Performing Organization Address [facility] Co de Phone Number [facility] [place] [address] * ABORH Recheck Status (08/10/2022 1:16 AM EST) Pathologist [facility] ABORH Recheck Order Order Placed [facility] ABORH Type Recheck Complete [facility] Blood 08/10/2022 1:16 AM EST 08/10/2022 1:31 AM EST Narrative Resulting Agency Comment Spec In Lab Jenise Tijerina MD BLOOD BANK LAB ORDER JUNE Performing Organization Address City/[facility]/ZIP Co de Phone Number [facility] [place] [address] * Antibody screen (08/10/2022 1:16 AM EST) [facility] Ab Screen Interp Negative [facility] Expires at [id number] on: 08/13/2022 [facility] Blood 08/10/2022 1:16 AM EST 08/10/2022 1:31 AM EST Narrative Resulting Agency Comment Spec In Lab Jenise Tijerina MD BLOOD BANK LAB ORDER JUNE Performing Organization Address City/[facility]/ZIP Co de Phone Number [facility] [place] [address] * ABO/Rh Typing (08/10/2022 1:16 AM EST) Pathologist [facility] ABORH Type O Pos [facility] Blood 08/10/2022 1:16 AM EST 08/10/2022 1:31 AM EST Narrative Resulting Agency Comment Spec In Lab Jenise Tijerina MD BLOOD BANK LAB ORDER JUNE Performing Organization Address City/[facility] de Phone Number [facility] [place] [id number] * (ABNORMAL) Differential, Automated (08/10/2022 1:16 AM EST) Pathologist [facility] Neutrophil % 82.6 % [facility] Neutrophil Absolute 8.90(H) 1.70 - 6.10 x10(3)/mc L [facility] Lymph % 13.0 % [facility] Lymphocytes Abs 1.4 0.9 - 3.2 x10(3)/mc L [facility] Monocyte % 2.5 % [facility] Monocyte Abs 0.3 0.3 - 0.9 x10(3)/mc L [facility] Eos % 0.7 % [facility] Eosinophils Abs 0.1 0.0 - 0.4 x10(3)/mc L [facility] Basophil % 0.6 % [facility] Baso Absolute 0.1 0.0 - 0.1 x10(3)/mc L [facility] Immature Gran % 0.60 % [facility] Comment: Immature granulocytes(IG's)percentage and absolute count will include metamyelocytes, myelocytes, and promyelocytes. Blood smears from CBCs yielding IG's will be scanned manually for concordance. If this scan disagrees with the automated IG or if promyelocytes are noted, a manual differential will be performed. Immature Gran Absolute 0.06(H) 0.00 - 0.04 x10(3)/mc L [facility] Blood 08/10/2022 1:16 AM EST 08/10/2022 1:17 AM EST Narrative Resulting Agency Comment Spec In Lab Jenise Tijerina MD HEMATOLOGY ORDERABLE S [facility] [place] [address] * (ABNORMAL) Hemogram (08/10/2022 1:16 AM EST) White Blood Cell 10.8(H) 4.0 - 9.5 x10(3)/mc L [facility] Red Blood Cell 2.53(L) 4.00 - 5.21 x10(6)/[facility] Hemoglobin 7.4(L) 11.7 - 15.5 g/dL [facility] Hematocrit 22.4(L) 35.7 - 45.8 % [facility] Mean Cell Volume 88.5 82.6 - 94.4 fL [facility] Mean Cell Hemoglobin 29.2 27.1 - 32.0 pg [facility] Mean Cell Hemoglobin Concentration 33.0 31.7 - 35.0 g/dL [facility] Platelet 507(H) 145 - 357 x10(3)/mc L [facility] RDW Standard Deviation 47.6(H) 37.0 - 46.0 fL [facility] RDW coefficient of variation 14.6(H) 11.5 - 14.1 % [facility] Mean Platelet Volume 8.0 7.6 - 12.9 fL [facility] NRBC% auto 0.0 % [facility] NRBC Absolute 0.000 0.000 - 0.000 x10(3)/mc L [facility] Blood 08/10/2022 1:16 AM EST 08/10/2022 1:17 AM EST Narrative Resulting Agency Comment Spec In Lab Jenise Tijerina MD HEMATOLOGY ORDERABLE S Performing Organization Address City/[facility]/ZIP Co de Phone Number [facility] [place] [address] * (ABNORMAL) Hepatic Function Panel (08/10/2022 1:16 AM EST) Protein, Total 5.1(L) 6.1 - 8.0 g/dL [facility] Albumin 3.0(L) 3.2 - 5.2 g/dL [facility] Aspartate Aminotransferase 12 0 - 30 unit/L [facility] Alanine Aminotransferase 8 0 - 30 unit/L [facility] Alkaline Phosphatase 57 35 - 105 unit/L [facility] Bilirubin, Total <0.2(L) 0.2 - 1.3 mg/dL [facility] Bilirubin, Direct <0.1 0.0 - 0.3 mg/dL [facility] Blood 08/10/2022 1:16 AM EST 08/10/2022 1:17 AM EST Narrative Resulting Agency Comment Spec In Lab Jeremy Metzger MD CHEMISTRY ORDERABLES Performing Organization Address [facility]/ZIP Co de Phone Number [facility] [place] [address] * (ABNORMAL) Basic Metabolic Panel (non-fasting) (08/10/2022 1:16 AM EST) Glucose 119 65 - 199 mg/dL [facility] Comment:Diabetes: >=200 mg/d L plus symptoms Blood Urea Nitrogen 6(L) 8 - 18 mg/dL [facility] Creatinine 0.59(L) 0.70 - 1.20 mg/dL [facility] Sodium 130(L) 135 - 145 mmol/L [facility] Potassium 3.6 3.5 - 5.0 mmol/L [facility] Comment: Please note: ??Patients with WBC >100,000 may have falsely elevated Potassium levels. ??For accurate Potassium quantification in these patients send serum separator tube (gold top) for subsequent determinations. ??Contact the Clinical Chemistry Laboratory if there are any questions. Chloride 95(L) 98 - 107 mmol/L [facility] Carbon Dioxide 24 22 - 31 mmol/L [facility] Anion Gap 11 5 - 15 mmol/L [facility] Calcium 7.8(L) 8.5 - 10.5 mg/dL [facility] Comment:result rechecked-KS Est Glomerular Filtration Rate 101 >=60 mL/min/1. 73 m?? [facility] Comment: This patient's estimated [...] Metzger MD CHEMISTRY ORDERABLES Performing Organization Address City/[facility] Co de Phone Number [facility] [place] [address] * (ABNORMAL) Ferritin (08/10/2022 1:16 AM EST) Ferritin 23(L) 30 - 400 ng/mL [facility] Comment: Pediatric reference ranges not verified at [facility], interpret with caution. Reference ranges for females greater than 50 years of age approach values for men, i.e., 30-400 ng/mL. Blood 08/10/2022 1:16 AM EST 08/10/2022 1:17 AM EST Narrative Resulting Agency Comment Spec In Lab Jeremy Metzger MD CHEMISTRY ORDERABLES Performing Organization Address City/[facility]/ZIP Co de Phone Number [facility] [place] [address] * (ABNORMAL) Iron and TIBC (08/10/2022 1:16 AM EST) Iron 18(L) 30 - 150 mcg/dL [facility] TIBC 213(L) 250 - 450 mcg/dL [facility] Iron Saturation 8(L) 20 - 50 % [facility] Blood 08/10/2022 1:16 AM EST 08/10/2022 1:17 AM EST Narrative Resulting Agency Comment Spec In Lab Jeremy Metzger MD CHEMISTRY ORDERABLES Performing Organization Address City/[facility] Co de Phone Number [facility] [place] [address] * Sedimentation rate (08/10/2022 1:16 AM EST) Sedimentation Rate Automated 26 2 - 39 mm/hr [facility] Comment: Effective August 06, 2019 new capillary photometric technology has resulted in a change in reference ranges. It is recommended that each ESR result be reviewed with its own age appropriate reference range. Blood 08/10/2022 1:16 AM EST 08/10/2022 1:17 AM EST Narrative Resulting Agency Comment Spec In Lab Jeremy Metzger MD HEMATOLOGY ORDERABLE S Performing Organization Address [facility] Co de Phone Number [facility] [place] [address] * Shiga Toxin Detection (08/09/2022 7:18 PM EST) Shiga Toxin Assay EIA Negative for Shiga Toxin 1 EIA Negative for Shiga Toxin 2 [facility] Stool 08/09/2022 7:18 PM EST 08/09/2022 8:04 PM EST Narrative Resulting Agency Comment Spec In Lab Basil De La Rosa MD MICROBIOLOGY - GENER AL ORDERABLES Performing Organization Address [facility] Co de Phone Number [facility] [place] [address] * Campylobacter Antigen (08/09/2022 7:18 PM EST) Campylobacter Ag Immunoassay Negative for Campylobacter Antigen [facility] Stool 08/09/2022 7:18 PM EST 08/09/2022 8:04 PM EST Narrative Resulting Agency Comment Spec In Lab Basil De La Rosa MD MICROBIOLOGY - GENER AL ORDERABLES Performing Organization Address [facility] [place] [place] [address] * Stool culture (08/09/2022 7:18 PM EST) Stool Culture No enteric pathogens isolated [facility] Stool 08/09/2022 7:18 PM EST 08/09/2022 8:04 PM EST Narrative Resulting Agency Comment Spec In Lab Basil De La Rosa MD MICROBIOLOGY - GENER AL ORDERABLES Performing Organization Address [facility] [place] [place] [address] * (ABNORMAL) Fecal Lactoferrin (08/09/2022 7:18 PM EST) Fecal Lactoferrin Positive( A) Negative [facility] Stool 08/09/2022 7:18 PM EST 08/09/2022 8:03 PM EST Narrative Resulting Agency Comment Spec In Lab Jeremy Metzger MD MICROBIOLOGY - GENER AL ORDERABLES Performing Organization Address [facility] Co de Phone Number [facility] [place] [address] * C. Difficile Screen (08/09/2022 7:18 PM EST) C Diff Interp Negative Negative [facility] Comment: PCR Neg C. diff?? Negative [...] - GENER AL ORDERABLES Performing Organization Address [facility] Co de Phone Number [facility] [place] [address] * (ABNORMAL) Calprotectin, Stool (08/09/2022 7:17 PM EST) Calprotectin, Stool >2,000(H) <=79 mcg/g [facility] Comment: Calprotectin Concentration ? Interpretation ? < 80 mcg/g ?Normal ? 80 ? 160 mcg/g ?Borderline ? >160 mcg/g ?Elevated Stool 08/09/2022 7:17 PM EST 08/09/2022 7:33 PM EST Narrative Resulting Agency Comment Spec In Lab Basil De La Rosa MD BODY FLUIDS AND STOO LS ORDERABLES Performing Organization Address [facility] [place] [address] * CT Abdomen & Pelvis w Contrast [...] who have questions please contact the health outdoor emergency care technician that requested your imaging first. ? Electronically signed by: Kiara Chance MD, [facility] ([phone]), at 08/09/2022 1:09 PM Narrative 08/09/2022 1:09 [...] administration of contrast. Administered 71.0 ml of LIARWQZHW991.00 mg/ml. Oral contrast was not administered. COMPARISON: [...] patients who have questions please contactthe health outdoor emergency care technician that requested your imaging first. Basil De La Rosa MD IM CT ORDERABLES * L-Lactate2 Whole Blood (08/09/2022 11:52 AM EST) [facility] Lactate WB 1.0 0.5 - 2.2 mmol/L [facility] Blood 08/09/2022 11:5 2 AM EST 08/09/2022 11:52 AM EST Emergency Dept CHEMISTRY ORDERABLE S [facility] [place] [address] * (ABNORMAL) CRP, acute inflammation (08/09/2022 10:46 AM EST) [facility] C-Reactive Protein 30.4(H) <=4.9 mg/L [facility] Blood Venous Draw / Unknown 08/09/2022 10:46 AM EST 08/09/2022 11:44 AM EST Narrative Resulting Agency Comment Spec In Lab Basil De La Rosa MD [place] [address] * (ABNORMAL) Differential, Automated (08/09/2022 10:46 AM EST) Neutrophil % 78.5 % [facility] Neutrophil Absolute 6.87(H) 1.70 - 6.10 x10(3)/mc L [facility] Lymph % 14.6 % [facility] Lymphocytes Abs 1.3 0.9 - 3.2 x10(3)/mc L [facility] Monocyte % 5.6 % [facility] Monocyte Abs 0.5 0.3 - 0.9 x10(3)/mc L [facility] Eos % 0.3 % [facility] Eosinophils Abs 0.0 0.0 - 0.4 x10(3)/mc L [facility] Basophil % 0.3 % [facility] Baso Absolute 0.0 0.0 - 0.1 x10(3)/mc L [facility] Immature Gran % 0.70 % [facility] Comment: Immature granulocytes(IG's)percentage and absolute count will include metamyelocytes, myelocytes, and promyelocytes. Blood smears from CBCs yielding IG's will be scanned manually for concordance. If this scan disagrees with the automated IG or if promyelocytes are noted, a manual differential will be performed. Immature Gran Absolute 0.06(H) 0.00 - 0.04 x10(3)/mc L [facility] Blood 08/09/2022 10:4 6 AM EST 08/09/2022 11:42 AM EST Narrative Resulting Agency Comment Spec In Lab Marilyn Marc MD HEMATOLOGY ORDERAB LES Performing Organization Address City/[facility]/[place] [address] * (ABNORMAL) Hemogram (08/09/2022 10:46 AM EST) White Blood Cell 8.8 4.0 - 9.5 x10(3)/mc L [facility] Red Blood Cell 2.98(L) 4.00 - 5.21 x10(6)/mc L [facility] Hemoglobin 8.6(L) 11.7 - 15.5 g/dL [facility] Hematocrit 26.1(L) 35.7 - 45.8 % [facility] Mean Cell Volume 87.6 82.6 - 94.4 fL [facility] Mean Cell Hemoglobin 28.9 27.1 - 32.0 pg [facility] Mean Cell Hemoglobin Concentration 33.0 31.7 - 35.0 g/dL [facility] Platelet 665(H) 145 - 357 x10(3)/mc L [facility] RDW Standard Deviation 48.0(H) 37.0 - 46.0 fL [facility] RDW coefficient of variation 14.9(H) 11.5 - 14.1 % [facility] Mean Platelet Volume 8.0 7.6 - 12.9 fL [facility] NRBC% auto 0.0 % [facility] NRBC Absolute 0.000 0.000 - 0.000 x10(3)/mc L [facility] Blood 08/09/2022 10:4 6 AM EST 08/09/2022 11:42 AM EST Narrative Resulting Agency Comment Spec In Lab Marilyn Marc MD HEMATOLOGY ORDERAB LES Performing Organization Address [facility] de Phone Number [facility] [place] [address] * Lipase (08/09/2022 10:46 AM EST) Lipase 18 0 - 60 unit/L [facility] Blood 08/09/2022 10:4 6 AM EST 08/09/2022 11:42 AM EST Narrative Resulting Agency Comment Spec In Lab Basil De La Rosa MD CHEMISTRY ORDERABLES Performing Organization Address City/[facility] Co de Phone Number [facility] [place] [address] * (ABNORMAL) Hepatic Function Panel (08/09/2022 10:46 AM EST) Protein, Total 5.8(L) 6.1 - 8.0 g/dL [facility] Albumin 3.1(L) 3.2 - 5.2 g/dL [facility] Aspartate Aminotransferase 13 0 - 30 unit/L [facility] Alanine Aminotransferase 12 0 - 30 unit/L [facility] Alkaline Phosphatase 65 35 - 105 unit/L [facility] Bilirubin, Total <0.2(L) 0.2 - 1.3 mg/dL [facility] Bilirubin, Direct <0.1 0.0 - 0.3 mg/dL [facility] Blood 08/09/2022 10:4 6 AM EST 08/09/2022 11:42 AM EST Narrative Resulting Agency Comment Spec In Lab Basil De La Rosa MD CHEMISTRY ORDERABLES Performing Organization Address City/State/[facility] Co de Phone Number [facility] [place] [address] * (ABNORMAL) Basic Metabolic Panel (non-fasting) (08/09/2022 10:46 AM EST) Glucose 122 65 - 199 mg/dL [facility] Comment:Diabetes: >=200 mg/d L plus symptoms Blood Urea Nitrogen 9 8 - 18 mg/dL [facility] Creatinine 0.73 0.70 - 1.20 mg/dL [facility] Sodium 131(L) 135 - 145 mmol/L [facility] Potassium 3.6 3.5 - 5.0 mmol/L [facility] Comment: Please note: ??Patients with WBC >100,000 may have falsely elevated Potassium levels. ??For accurate Potassium quantification in these patients send serum separator tube (gold top) for subsequent determinations. ??Contact the Clinical Chemistry Laboratory if there are any questions. Chloride 93(L) 98 - 107 mmol/L [facility] Carbon Dioxide 27 22 - 31 mmol/L [facility] Anion Gap 11 5 - 15 mmol/L [facility] Calcium 8.8 8.5 - 10.5 mg/dL [facility] Est Glomerular Filtration Rate 92 >=60 mL/min/1. 73 m?? [facility] Comment: This patient's estimated [...] Basil De La Rosa MD CHEMISTRY ORDERABLES [facility] [place] [address] documented in this encounter Visit Diagnoses Diagnosis [...] PRN, Starting on Sun08/09/22 at 1533, Until 08/14/22 at 1639, Nausea, Start with 4mg and if ineffective in 30 minutes, give an additional 4mg If multiple antiemetics are ordered, give ondansetron first. ondansetron (Zofran) tablet 4-8 mg 4-8 mg, Oral, EVERY 8 HOURS PRN, Starting on Sun08/09/22 at 1533, Until 08/14/22 at 1639, Nausea, Vomiting, If multiple antiemetics [...] on Sun08/13/22 at 1130, Until Discontinued, Routine Given 08/14/2022 [...] Salgado RN) 0854 (Given - Provider: Mandy Senior RN) 0854 (Given - Provider: Mandy Senior RN) enoxaparin (Lovenox) (40 mg/0.4 mL) subcutaneous injection 40 mg (CANCELED) 40 mg, Subcutaneous, EVERY 24 HOURS SCHEDULED (Daily), First dose on Sun08/10/22 at 0900, Until Discontinued, Routine 0831 (Given - Provider: Aline [place], WEN) ferrous sulfate EC tablet 325 mg 325 [...] Aline [place] RN)1449 (Given - Provider: Rand Salgado RN)2011 (Given - Provider: Aline [place] RN) 0551 (Given - Provider: Aline [place] RN) OXcarbazepine (Trileptal) tablet 1,050 mg 1,050 mg, Oral, EVERY 24 HOURS, First dose (after last modification) on Sun08/10/22 at 1900, Until Discontinued, DO NOT SPLIT, CRUSH OR OPEN Pt reports take it between 7 and 7:30pm, Routine 1859 (Given - Provider: Rand Salgado RN) 194 (Given - Provider: Jonathan Fox RN) pantoprazole EC (Protonix) tablet 40 mg 40 mg, Oral, DAILY, First dose on Sun08/10/22 at 1423, Until Discontinued, DO NOT CRUSH OR OPEN 0831 (Given - Provider: Aline [place] RN) 0903 (Given - Provider: Mandy Senior RN) 0858 (Given - Provider: Mandy Senior, WEN) predniSONE (Deltasone) tablet 40 mg 40 mg, [...] Until Discontinued, Routine 0900 (Given - Provider: Alnie [place] RN)2100 (Given - Provider: Aline [place] [...] 2012 (Given - Provider: Aline [place] RN) 1717 (Given - Provider: Mandy Senior RN)2334 (Given [...] documented as of this encounter Care Teams Machine Printer Relationship Specialty Start Date End Date Pradeep Gallardo APRN PCP - General 07/19/10 08/04/24 documented as of this encounter
--- OUTSIDE RECORDS SUMMARY | 2024-09-05 16:52 | XMS_ITS | Encounter Summary ---
Author Organization [facility] Address [facility] [place] [address] Care Team Providers Care Communication Studies Professor Name Role Phone Pradeep Gallardo APRN Primary Care Provider [phone] Encounter Details Date Type Department Care Team (Latest Contact Info) Description 12/01/2016 - 12/01/2016 11:59 PM EDT Hospital Encounter Radiology Library at [facility] [place] [phone] Pradeep Gallardo APRN [address] [place] [address] [address] [place] [id number] Pain Discharge Disposition: Home Social History Tobacco [...] MR Spine (12/01/2016 12:00 AM EDT) Narrative [facility] - 02/01/2017 3:59 PM EDT This exam is for storage only and is auto-finalizing. Pradeep Gallardo APRN IMG FILM LIBRARY ORD ERABLES [place], [place] documented in this encounter Visit Diagnoses Diagnosis Pain Generalized pain documented in this encounter Care Teams Communication Studies Professor Relationship Specialty Start Date End Date Pradeep Gallardo APRN PCP - General 07/19/10 08/04/24 documented as of this encounter
--- OUTSIDE RECORDS SUMMARY | 2024-09-05 16:52 | XMS_ITS | Encounter Summary ---
[place] [address] Care Team Providers Care Tile Sorter Name Role Phone Pradeep Gallardo APRN [...] documented as of this encounter Care Teams Tile Sorter Relationship Specialty Start Date End Date Pradeep Gallardo APRN PCP - General 07/19/10 08/04/24 documented as of this encounter
[2024-09-06 08:47] LABS: HIV-1/2 Ag & Ab Screen Negative (Negative)
[2024-09-08 10:53] LABS: Hepatitis C Ab w Rflx HCV PCR Negative (Negative)
== END 2024-09-05 16:45 | disposition home or self-care (01) ==
LOC: NCHCN 16:44
PROVIDERS: PCP Family Medicine; Visit Provider Family Medicine
DX: M81.0 Age-related osteoporosis without current pathological fracture (principal)
CPT/HCPCS: 80061; 82306; 86803; 87389

== ENCOUNTER 2024-09-12 00:50 | Outpatient (RCR) | payer MEDICARE, OTHER, SELFPAY ==
[2024-07-27 00:17] VITALS: BP 136/84; PULSE 68; RESP 16; TEMP 36.5
--- OUTSIDE RECORDS SUMMARY | 2024-09-12 00:54 | XMS_ITS ---
Author Organization Unknown Address [address] [place] [phone] Phone Care Team Providers Care Unattended Ground Sensor Specialist Name Role Phone SP CARY Attending Unavailable Results ECW URINE CULTURE* - Collect Date/Time: 01/31/2022 10:23 [facility] ID: [id number] [address] [place] [address], [id number] LOINC: 630-4 Test Value Unit Reference Range Code Code System Flag COLLECTION MODE: NOT STATED 24428-1 LOINC Social History Type Status Start Date End Date Code Code Syst em Smoking History Former smoker 1282702 SNOMED CT Sex Female Medications Medication Start Date End Date Route Frequency Dose Code Code System Medication Instructions Home Meds Trileptal 300MG Oral Tablet 10/03/2014 Unknown ORAL THREE TIMES A DAY 300 MILLIGRAMS 749328 RxNorm TAKE 300 MILLIGRAMS ORAL THREE TIMES [...] Code Code Sys tem Abdominal pain 01/31/2022 [id number] SNOMED-CT Personal Care Team Section Performer Name Performer Role Active Date Inactive Da te
--- OUTSIDE RECORDS SUMMARY | 2024-09-12 00:55 | XMS_ITS | Encounter Summary ---
Author Organization [facility] Address [address] [place] [address] Care Team Providers Care Director Of Music Therapy Name Role Phone Rosi Ordoñez MD Primary Care Provider [phone] Encounter Details Date Type Department Care Team (Late st Contact Info) Description 09/05/2024 Lab Requisition [facility] Pathology & Laboratory Medicine - [address] [address] Outr Resulting Lab, Provider Social History Tobacco [...] 1/2 ANTIGEN AND ANTIBODY, 4TH GENERATION Routine 09/05/2024 10:10 EST documented in this encounter Results * HIV 1/2 ANTIGEN AND ANTIBODY, 4TH GENERATION (09/05/2024 10:10 EST) HIV 1 and 2 Antibody/p24 Antigen, 4th Generation Negative Negative 09/06/2024 8:42 EST [facility] Comment:If acute HIV-1 infec tion is suspected in a high risk patient, submit plasma specimen for HIV-1 RNA quantitation test. Blood VENOUS BLOOD / Unknown 09/05/2024 10:10 EST 09/05/2024 21:52 EST Narrative [facility] - 09/06/2024 8:42 EST Fourth Generation assay performed on the NLP [employer] XPT. us Provider Outr Resulting Lab IMMUNOLOGY AND SEROL OGY ORDERABLES Final Result [facility] [address] [place] [address] [phone] documented in this encounter Visit Diagnoses Not on filedocumented in this encounter Care Teams Director Of Music Therapy Relationship Specialty Start Date End Date Rosi Ordoñez MD [address] [place] [address] PCP - General Family Medicine - Primary Care 06/27/24 documented as of this encounter
--- OUTSIDE RECORDS SUMMARY | 2024-09-12 00:55 | XMS_ITS | Encounter Summary ---
Author Organization [facility] Address [address] [place] [address] Care Team Providers Care Dry House Operator Name Role Phone Aria Thompson MD Primary Care Provider Rosi Ordoñez MD Primary Care Provider [phone] Reason for Visit * Reason Onset Date Comments Appointment Related 06/22/2020 Encounter Details Date Type Department Care Team (Late st Contact Info) Description 06/22/2020 Telephone [facility] Endocrinology - [facility] [address] [place] [address] Amber Mendosa DO [address] [facility] [address] [place] [address] Appointment Related Social History Tobacco [...] on filedocumented in this encounter Care Teams Dry House Operator Relationship Specialty Start Date End Date Aria Thompson MD PCP - General 12/03/17 06/26/24 Rosi Ordoñez MD [address] [place] [address] PCP - General Family Medicine - Primary Care 06/27/24 documented as of this encounter
--- OUTSIDE RECORDS SUMMARY | 2024-09-12 00:55 | XMS_ITS | Referral Summary ---
Author Organization [facility] Address [address] [place] [address] Care Team Providers Care Chief Executive Or Managing Director Name Role Phone Rosi Ordoñez MD Primary Care Provider [phone] Encounters Date Type Department Care Team Description 09/05/2024 Lab Requisition [facility] Pathology & Laboratory [address] [address] Outr Resulting Lab, Provider 09/05/2024 Lab Requisition [facility] Pathology & Laboratory [address] [address] Outr Resulting Lab, Provider 07/16/2024 Lab Requisition [facility] Pathology Laboratory [address] [address] Fazal Tee MD Nontoxic multinodular goiter from [...] migh t be different from the original. [facility] Neuropsychology Program [place] scanned to [...] W REFLEX TO HCV RNA BY PCR Routine 09/05/2024 10:10 EST HIV 1/2 ANTIGEN AND ANTIBODY, 4TH GENERATION Routine 09/05/2024 10:10 EST NON KNITTING MACHINE TENDER/FNA CYTOLOGY Today 07/15/2024 12:20 EST Nontoxic multinodular goiter US OUTSIDE IMAGES THYROID Routine 06/24/2024 12:52 EDT from Last 3 Months Results * HEPATITIS C AB W REFLEX TO HCV RNA BY PCR (09/05/2024 10:10 EST) Hep C Antibody Negative Negative 09/08/2024 10:[address] [facility] Blood VENOUS BLOOD / Unknown 09/05/2024 10:10 EST 09/05/2024 21:52 EST us Provider Outr Resulting Lab CHEMISTRY & BLOOD GA S ORDERABLES Final Result Performing Organization Address City/[facility]/ZIP Co de Phone Number [facility] [address] [place] [address] * HIV 1/2 ANTIGEN AND ANTIBODY, 4TH GENERATION (09/05/2024 10:10 EST) HIV 1 and 2 Antibody/p24 Antigen, 4th Generation Negative Negative 09/06/2024 8:[address] [facility] Comment:If acute HIV-1 infec tion is suspected in a high risk patient, submit plasma specimen for HIV-1 RNA quantitation test. Blood VENOUS BLOOD / Unknown 09/05/2024 10:10 EST 09/05/2024 21:52 EST Narrative [facility] - 09/06/2024 8:42 EST Fourth Generation assay performed on the Siemens Centaur XPT. us Provider Outr Resulting Lab IMMUNOLOGY AND SEROL OGY ORDERABLES Final Result Performing Organization Address City/[facility]/ZIP Co de Phone Number [facility] [address] [place] [address] * NON KNITTING MACHINE TENDER/FNA CYTOLOGY (07/15/2024 12:20 EST) Ancillary Studies Addendum This addendum report is issued to provide the Afirma Gene Sequencing Natural Resources Professor results. Please see the attached documentation. 07/29/2024 16:[address] [facility] Addendum electronically signed by Jony Cr MD on 07/29/2024 at 1600 Note to Patient The following pathology results have been interpreted by your pathologist and may be available to you before your health provider has had the opportunity to review them. Please allow time for your provider to receive these results and explore management options, if applicable. 07/29/2024 16:00 [facility] Final Diagnosis A. THYROID, LEFT, ULTRASOUND-GUIDED FINE-NEEDLE ASPIRATION: - Atypia of undetermined significance (AUS). - See comment 07/29/2024 16:00 [facility] Diagnosis Comment Stained aspirate smear [...] at the [facility] Pathology Department, [address] [place] [address] (CLIA [id number]). The professional component of the specimen evaluation (slide review and issuing of the final diagnosis) was performed at [facility], [address] [place] [address] (CLIA License Number [id number]). 07/29/2024 16:00 [facility] Attestation By the signature below, the attending physician certifies that they have personally conducted a gross and/or microscopic examination of the described specimens and rendered or confirmed the above diagnosis. 07/29/2024 16:00 [facility] at 1152 Rapid Diagnosis A. THYROID NODULE (2.8 CM), LEFT, ULTRASOUND GUIDED FINE NEEDLE ASPIRATION: Evaluation Episode 1: Pass 1-2: Adequate follicular cells; abundant siderophage's. Afirma collected.( 2 dedicated passes). The above rapid on site evaluation was performed by pathologist Dr. Areli Garcia at [facility], [address] [place] [address]. 07/15/24; 1220 07/29/2024 16:00 [facility] Clinical History 2.8cm left thyroid nodule. E04.2 07/29/2024 16:00 [facility] Gross Description A. 3 fixed prepared slides, 4 air dried prepared slides, and 1 tube of CytoLyt were received and processed by selective cellular enhancement technique. 1 FNAprotect tube for possible Afirma testing was also received and will be held for 60 days from date of collection. 07/29/2024 16:00 [facility] Performing Lab [facility] 16:00 [facility] Scanned Images 07/29/2024 16:00 [facility] Fine Needle Aspirate STRUCTURE OF LEFT LOBE OF THYROID GLAND / Unknown 07/15/2024 12:20 EST 07/16/2024 6:10 EST us Fazal Tee MD PATHOLOGY ORDERABLES Edited Resu lt - Final [facility] [address] [place], [place] [address] LABORATORY SERVICES [address] [place] [address] * US OUTSIDE IMAGES THYROID (06/24/2024 12:52 EDT) Narrative 06/27/2024 12:52 EDT This is a non-reportable exam. us External Imaging IMG OTHER IMAGING ORDERABLES Fi nal Result from Last 3 Months Insurance MEDICARE [employer] Care Teams Chief Executive Or Managing Director Relationship Specialty Start Date End Date Rosi Ordoñez MD [address] [place] [phone] PCP - General Family Medicine - Primary Care 06/27/24
--- OUTSIDE RECORDS SUMMARY | 2024-09-12 00:55 | XMS_ITS ---
Author Organization Unknown Address [address] [place] [phone] Phone Care Team Providers Care System Manager Name Role Phone SP CARY Attending Unavailable Results MM SCREENING BILAT MAMMO W T LYUBOV W CAD - Completed: 07/11/2023 10:33 [facility] RADIOLOGY [place], [place] [address] PACS ATTENDANT CAMP[place] REPORT Patient Name: SKYLA LONDONO Remy MRN: Sex: : Age: [id number] F [id number] Account: Accession: Admit: StayType: [id number] 07/11/2023 O/P Ordered: Order ID: Submitted: Ordering Provider: 07/11/2023 10:00 [id number] RAEANN NGUYEN Completed: Technologist: Resulted: 07/11/2023 10:33 [facility] 07/11/2023 11:11 Study Description: MM SCREENING BILAT [...] Code Syst em Smoking History Former smoker 1316033 SNOMED CT Sex Female Medications Medication Start Date End Date Route Frequency Dose Code Code System Medication Instructions Home Meds Trileptal 300MG Oral Tablet 10/03/2014 Unknown ORAL THREE TIMES A DAY 300 MILLIGRAMS 801925 RxNorm TAKE 300 MILLIGRAMS ORAL THREE TIMES [...]
--- OUTSIDE RECORDS SUMMARY | 2024-09-12 00:55 | XMS_ITS | Encounter Summary ---
Author Organization [facility] Address [address] [place] [address] Care Team Providers Care Glazing Superintendent Name Role Phone Aria Thompson MD Primary Care Provider Reason for Visit * Reason Onset Date Comments Medication Management 10/16/2019 Encounter Details Date Type Department Care Team (Late st Contact Info) Description 10/16/2019 Telephone [facility] Endocrinology - [address] [address] [place] Lux, cto Management Social History Tobacco Use Types Packs/Day [...] on filedocumented in this encounter Care Teams Glazing Superintendent Relationship Specialty Start Date End Date Aria Thompson MD PCP - General 12/03/17 06/26/24 documented as of this encounter
--- OUTSIDE RECORDS SUMMARY | 2024-09-12 00:55 | XMS_ITS | Encounter Summary ---
Author Organization [facility] Address [address] [place] [address] Care Team Providers Care Flat Hammerer Name Role Phone Aria Thompson MD Primary Care Provider Reason for Visit * Reason Onset Date Comments Coordination Of Care 10/16/2019 Encounter Details Date Type Department Care Team (Late st Contact Info) Description 10/16/2019 Telephone [facility] Endocrinology - [address] [address] Samantha Alonzo RN Coordination Of [...] Encounter - Samantha Alonzo RN - 10/16/2019 1314 EST Pt called. She reports that Dr. Lujan has moved and is now practicing at [facility]. . Fax there is [phone]. Confirmed that pt and her PCP are at this location. All paperwork faxed 10/16/21 to fax number above. Pt aware. Patient verbalized understanding. No barriers to learning noted. Samantha Alonzo RN Endocrinology documented in this encounter Plan of Treatment Not on file documented as of this encounter Visit Diagnoses Not on filedocumented in this encounter Care Teams Flat Hammerer Relationship Specialty Start Date End Date Aria Thompson MD PCP - General 12/03/17 06/26/24 documented as of this encounter
--- OUTSIDE RECORDS SUMMARY | 2024-09-12 00:55 | XMS_ITS | Encounter Summary ---
Author Organization [facility] Address [address] [place] [address] Care Team Providers Care Music Supervisor Name Role Phone Aria Thompson MD Primary Care Provider Encounter Details Date Type Department Care Team (Late st Contact Info) Description 06/29/2020 Results Only [facility] Endocrinology [address] [place], [place] [address] Joanne Sotomayor MD [address] [facility] [address] [place] [phone] Social History Tobacco Use Types Packs/Day Years [...] (06/29/2020) 06/29/2020 07/01/2020 7:3 2 EST Narrative [facility] - 07/01/2020 17:06 EST ----- ------- Name: SKYLA LONDONO ? : [birth year] ?Age/Sex: 59/F ?Unit#: [id number] ? Loc: LAB.OPX ? Status: REG REF ?? Reg Date: 06/30/20 ? Pt.Phone Number: ? ----- ------- Specimen: [id number] ? STATUS: SOUT ?Spec Date:06/29/20 ? Physician Copies: ?Joanne Valdes Tissues: A ?? THYROID FNA (LEFT) ? Aria Thompson CPT: 39591 ?? Units: ??1 ----- ------- ?? NON CAPITAL CAMPAIGN FUNDRAISER CYTOLOGY DIAGNOSIS THYROID, LEFT, ULTRASOUND GUIDED FINE [...] diagnosis. Test Performed by [facility], [address] [facility] [address] Leather Staker: Keisha Garcia MD PHD ----- ------- us Joanne Sotomayor MD PATHOLOGY ORDERABLES Final Re sult [facility] [address] [place] [address] documented in this encounter Visit Diagnoses Not on filedocumented in this encounter Care Teams Music Supervisor Relationship Specialty Start Date End Date Aria Thompson MD PCP - General 12/03/17 06/26/24 documented as of this encounter
--- OUTSIDE RECORDS SUMMARY | 2024-09-12 00:55 | XMS_ITS | Encounter Summary ---
Author Organization [facility] Address [address] [place] [address] Care Team Providers Care Security Police Name Role Phone Aria Thompson MD Primary Care Provider Reason for Visit * Reason Onset Date Comments Medications Refill 11/15/2020 Encounter Details Date Type Department Care Team (Late st Contact Info) Description 11/15/2020 Refill [facility] Neurology [facility] [address] [place], [place] [id number] Marleny Quezada MD [address] [place] [address] Medications Refill Social History Tobacco [...] She advised she would like referral to [place] [facility], as this is closer to her. I let patient know that she could possibly reach out to her PCP about this referral, and she advised this is not something her PCP would handle. She inquired about just sending referral to [facility] for her, and I let her know [...] Last seen: 05-26-2019 No [facility] scheduled[facility] [...] documented as of this encounter Care Teams Security Police Relationship Specialty Start Date End Date Aria Thompson MD PCP - General 12/03/17 06/26/24 documented as of this encounter
--- OUTSIDE RECORDS SUMMARY | 2024-09-12 00:55 | XMS_ITS | Encounter Summary ---
Author Organization [facility] Address [address] [place] [address] Care Team Providers Care Engineering Geologist Name Role Phone Aria Thompson MD Primary Care Provider Reason for Visit * Reason Onset Date Comments Appointment Related 10/14/2019 Encounter Details Date Type Department Care Team (Late st Contact Info) Description 10/14/2019 Telephone [facility] Endocrinology - [facility] [address] [place] [address] Amber Mendosa, [address] [facility] [address] [place] [address] Appointment Related Social History Tobacco [...] Encounter - [place] Lux RN - 10/14/2019 1536 EST Office note and fax cover sheet [...] filedocumented in this encounter Care Teams Engineering Geologist Relationship Specialty Start Date End Date Aria Thompson MD PCP - General 12/03/17 06/26/24 documented as of this encounter
--- OUTSIDE RECORDS SUMMARY | 2024-09-12 00:55 | XMS_ITS | Encounter Summary ---
Author Organization [facility] Address [address] [place] [address] Care Team Providers Care Solderer Assembly Repair Name Role Phone Rosi Ordoñez MD Primary Care Provider [phone] Encounter Details Date Type Department Care Team (Late st Contact Info) Description 09/05/2024 Lab Requisition [facility] Pathology & Laboratory Medicine - [address] [address] Outr Resulting Lab, Provider Social History Tobacco [...] RNA BY PCR Routine 09/05/2024 10:10 EST documented in this encounter Results * HEPATITIS C AB W REFLEX TO HCV RNA BY PCR (09/05/2024 10:10 EST) Hep C Antibody Negative Negative 09/08/2024 10:49 EST [facility] Blood VENOUS BLOOD / Unknown 09/05/2024 10:10 EST 09/05/2024 21:52 EST us Provider Outr Resulting Lab CHEMISTRY & BLOOD GA S ORDERABLES Final Result [facility] [address] [place] [address] documented in this encounter Visit Diagnoses Not on filedocumented in this encounter Care Teams Solderer Assembly Repair Relationship Specialty Start Date End Date Rosi Ordoñez MD [address] [place] [address] PCP - General Family Medicine - Primary Care 06/27/24 documented as of this encounter
--- OUTSIDE RECORDS SUMMARY | 2024-09-12 00:55 | XMS_ITS | Clinical Summary ---
Author Organization [facility] Address [address] [place] [address] Care Team Providers Care Case Management Coordinator Name Role Phone Rosi Ordoñez MD Primary Care Provider Allergies Active Allergy [...] migh t be different from the original. [facility] Neuropsychology Program [place] scanned to [employer] on: 2019-05-14 Problem Noted Date Diagnosed Date Nontoxic multinodular goiter 08/06/2020 Other osteoporosis without current pathological fracture 03/27/2019 Encounters Date Type Department Care Team Description 09/05/2024 Lab Requisition [facility] Pathology & Laboratory [address] [address] Outr Resulting Lab, Provider 09/05/2024 Lab Requisition [facility] Pathology & Laboratory [address] [address] Outr Resulting Lab, Provider 07/16/2024 Lab Requisition [facility] Pathology & Laboratory [address] [address] Fazal Tee MD Nontoxic multinodular goiter from [...] 75+ series) 2033 Hepatitis C Screen Completed 09/05/2024, 08/31/2023 Procedures Procedure Name Priority Date/Time Associated Diagnosis Comments HEPATITIS C AB W REFLEX TO HCV RNA BY PCR Routine 09/05/2024 10:10 EST HIV 1/2 ANTIGEN AND ANTIBODY, 4TH GENERATION Routine 09/05/2024 10:10 EST NON BAG BUILDER/FNA CYTOLOGY Today 07/15/2024 12:20 EST Nontoxic multinodular goiter US OUTSIDE IMAGES THYROID Routine 06/24/2024 12:52 EDT from Last 3 Months Results * HEPATITIS C AB W REFLEX TO HCV RNA BY PCR (09/05/2024 10:10 EST) Pathologist [facility] Hep C Antibody Negative Negative 09/08/2024 10:49 EST [facility] Blood VENOUS BLOOD / Unknown 09/05/2024 10:10 EST 09/05/2024 21:52 EST us Provider Outr Resulting Lab CHEMISTRY & BLOOD GA S ORDERABLES Final Result Performing Organization Address [facility]/ZIP Co de Phone Number [facility] [address] [place] [address] * HIV 1/2 ANTIGEN AND ANTIBODY, 4TH GENERATION (09/05/2024 10:10 EST) Pathologist [facility] HIV 1 and 2 Antibody/p24 Antigen, 4th Generation Negative Negative 09/06/2024 8:42 EST [facility] Comment:If acute HIV-1 infec tion is suspected in a high risk patient, submit plasma specimen for HIV-1 RNA quantitation test. Blood VENOUS BLOOD / Unknown 09/05/2024 10:10 EST 09/05/2024 21:52 EST Narrative [facility] - 09/06/2024 8:42 EST Fourth Generation assay performed on the Siemens Centaur XPT. us Provider Outr Resulting Lab IMMUNOLOGY AND SEROL OGY ORDERABLES Final Result Performing Organization Address City/[facility]/ZIP Co de Phone Number [facility] [address] [place] [address] * NON BAG BUILDER/FNA CYTOLOGY (07/15/2024 12:20 EST) [facility] Ancillary Studies Addendum This addendum report is issued to provide the Afirma Gene Sequencing Extra Hand results. Please see the attached documentation. 07/29/2024 16:00 EST [facility] Addendum electronically signed by Jony Cr MD on 07/29/2024 at 1600 Note to Patient The following pathology results have been interpreted by your pathologist and may be available to you before your health provider has had the opportunity to review them. Please allow time for your provider to receive these results and explore management options, if applicable. 07/29/2024 16:00 [facility] Final Diagnosis A. THYROID, LEFT, ULTRASOUND-GUIDED FINE-NEEDLE ASPIRATION: - Atypia of undetermined significance (AUS). - See comment 07/29/2024 16:00 [facility] Diagnosis Comment Stained [...] the specimen processing was performed at the [facility] Pathology Department, [address] [place] [address] (CLIA [id number]). The professional component of the specimen evaluation (slide review and issuing of the final diagnosis) was performed at [facility], [address] [place] [address] (CLIA License Number [id number]). 07/29/2024 16:00 [facility] Attestation By the signature below, the attending physician certifies that they have personally conducted a gross and/or microscopic examination of the described specimens and rendered or confirmed the above diagnosis. 07/29/2024 16:00 [facility] at 1152 Rapid Diagnosis A. THYROID NODULE (2.8 CM), LEFT, ULTRASOUND GUIDED FINE NEEDLE ASPIRATION: Evaluation Episode 1: Pass 1-2: Adequate follicular cells; abundant siderophage's. Afirma collected.( 2 dedicated passes). The above rapid on site evaluation was performed by pathologist Dr. Areli Garcia at [facility], [address] [facility], [place] [address]. 07/15/24; 1220 07/29/2024 16:00 [facility] Clinical History 2.8cm left thyroid nodule. E04.2 07/29/2024 16:00 EST [facility] Gross Description A. 3 fixed prepared slides, 4 air dried prepared slides, and 1 tube of CytoLyt were received and processed by selective cellular enhancement technique. 1 FNAprotect tube for possible Afirma testing was also received and will be held for 60 days from date of collection. 07/29/2024 16:00 [facility] Performing Lab [facility] 16:00 [facility] Scanned Images 07/29/2024 16:00 [facility] Fine Needle Aspirate STRUCTURE OF LEFT LOBE OF THYROID GLAND / Unknown 07/15/2024 12:20 EST 07/16/2024 6:10 EST us Fazal Tee MD PATHOLOGY ORDERABLES Edited Resu lt - Final [facility] [address] [place] [address] [facility] [address] [place] [address] * US OUTSIDE IMAGES THYROID (06/24/2024 12:52 EDT) Narrative 06/27/2024 12:52 EDT This is a non-reportable exam. us External Imaging IMG OTHER IMAGING ORDERABLES Fi nal Result from Last 3 Months Insurance MEDICARE [employer] Care Teams Case Management Coordinator Relationship Specialty Start Date End Date Rosi Ordoñez MD [address] [place] [phone] PCP - General Family Medicine - Primary Care 06/27/24
--- OUTSIDE RECORDS SUMMARY | 2024-09-12 00:55 | XMS_ITS | Encounter Summary ---
Author Organization [facility] Address [address] [place] [address] Care Team Providers Care Production Finisher Name Role Phone Aria Thompson MD Primary Care Provider Reason for Visit * Reason Onset Date Comments Appointment Related 10/15/2019 Encounter Details Date Type Department Care Team (Late st Contact Info) Description 10/15/2019 Telephone [facility] Endocrinology - [address] [address] Ren[place] Lux RN Appointment Related [...] on filedocumented in this encounter Care Teams Production Finisher Relationship Specialty Start Date End Date Aria Thompson MD PCP - General 12/03/17 06/26/24 documented as of this encounter
--- OUTSIDE RECORDS SUMMARY | 2024-09-12 00:55 | XMS_ITS | Encounter Summary ---
Author Organization [facility] Address [address] [place] [address] Care Team Providers Care Production Superintendent Name Role Phone Aria Thompson MD Primary Care Provider Rosi Ordoñez MD Primary Care Provider [phone] Encounter Details Date Type Department Care Team (Late st Contact Info) Description 08/31/2023 Lab Requisition [facility] Pathology & Laboratory Medicine - [address] [address] Outr Resulting Lab, Provider Social History Tobacco [...] 4th Generation Negative Negative 08/31/2023 19:45 EST [facility] Comment:If acute HIV-1 infec tion is suspected in a high risk patient, submit plasma specimen for HIV-1 RNA quantitation test. Blood VENOUS BLOOD / Unknown 08/31/2023 10:21 EST 08/31/2023 17:44 EST Narrative [facility] - 08/31/2023 19:45 EST Fourth Generation assay performed on the Siemens Centaur XPT. us Provider Outr Resulting Lab IMMUNOLOGY AND SEROL OGY ORDERABLES Final Result [facility] [address] [place] [address] documented in this encounter Visit Diagnoses Not on filedocumented in this encounter Care Teams Production Superintendent Relationship Specialty Start Date End Date Aria Thompson MD PCP - General 12/03/17 06/26/24 Rosi Ordoñez MD [address] [place] [phone] PCP - General Family Medicine - Primary Care 06/27/24 documented as of this encounter
--- OUTSIDE RECORDS SUMMARY | 2024-09-12 00:55 | XMS_ITS | Encounter Summary ---
Author Organization [facility] Address [address] [place] [address] Care Team Providers Care Foundry Patternmaker Name Role Phone Aria Thompson MD Primary Care Provider Rosi Ordoñez MD Primary Care Provider [phone] Encounter Details Date Type Department Care Team (Late st Contact Info) Description 08/04/2021 Lab Requisition [facility] Pathology & Laboratory Medicine - [address] [address] Derrick Mir MD [address] [place] [phone] Ulcerative (chronic) pancolitis with rectal bleeding [...] explore management options, if applicable. 08/05/2021 16:46 [facility] Final Diagnosis A. COLON, [...] activity. - Negative for dysplasia. 08/05/2021 16:46 [facility] Attestation By the signature below, the attending physician certifies that they have 1) personally conducted a gross and/or microscopic examination of the described specimen(s), and/or personally interpreted the results of laboratory testing of the described specimen(s), and 2) personally rendered or confirmed the above diagnosis. 08/05/2021 16:46 [facility] at 1646 Clinical History History of ulcerative colitis; clinical diagnosis code: K51.011 08/05/2021 16:46 [facility] Gross Description A. Received [...] G1. KATE WELLER(ASCP) 08/04/2021 19:52 08/05/2021 16:46 [facility] Performing Lab [facility] 08/05/2021 16:46 [facility] Scanned Images 08/05/2021 16:46 [facility] Tissue SPECIMEN FROM RECTUM [...] Derrick Mir MD PATHOLOGY ORDERABLES Final Result [facility] [address] [place] [address] documented in this encounter Visit Diagnoses Diagnosis Ulcerative (chronic) pancolitis with rectal bleeding (HCC-CMS) documented in this encounter Care Teams Foundry Patternmaker Relationship Specialty Start Date End Date Aria Thompson MD PCP - General 12/03/17 06/26/24 Rosi Ordoñez MD [address] [place] [phone] PCP - General Family Medicine - Primary Care 06/27/24 documented as of this encounter
--- OUTSIDE RECORDS SUMMARY | 2024-09-12 00:55 | XMS_ITS | Encounter Summary ---
Author Organization [facility] Address [address] [place] [address] Care Team Providers Care Concrete Floor Installer Name Role Phone Aria Thompson MD Primary Care Provider Reason for Visit * Reason Comments Biopsy Encounter Details Date Type Department Care Team (Latest Contact Info) Description 06/30/2020 11:30 EST Procedure visit [facility] Endocrinology [address] [place] [address] Joanne Sotomayor MD [address] [facility] [address] [place] [address] Nontoxic multinodular goiter (Primary Dx) [...] For patients, please refer to guidance in [employer] on how to locate information. Generally this information will appear as a scanned documents saved in My Documents activity. Patient was seen for biopsy. documented in this encounter Plan of Treatment Not on file documented as of this encounter Visit Diagnoses Diagnosis Nontoxic multinodular goiter- Primary documented in this encounter Care Teams Concrete Floor Installer Relationship Specialty Start Date End Date Aria Thompson MD PCP - General 12/03/17 06/26/24 documented as of this encounter
--- OUTSIDE RECORDS SUMMARY | 2024-09-12 00:55 | XMS_ITS | Encounter Summary ---
Author Organization [facility] Address [address] [place] [address] Care Team Providers Care Song Writer Name Role Phone Aria Thompson MD Primary Care Provider Reason for Visit * Reason Onset Date Comments Medications Refill 11/05/2019 Encounter Details Date Type Department Care Team (Late st Contact Info) Description 11/05/2019 Refill [facility] Neurology [facility] [address] [place], [place] [phone] Marleny Quezada MD [address] [place] [phone] Medications Refill Social History Tobacco Use Types [...] documented as of this encounter Care Teams Song Writer Relationship Specialty Start Date End Date Aria Thompson MD PCP - General 12/03/17 06/26/24 documented as of this encounter
--- OUTSIDE RECORDS SUMMARY | 2024-09-12 00:55 | XMS_ITS | Encounter Summary ---
Author Organization [facility] Address [address] [place] [address] Care Team Providers Care School Resource Officer Name Role Phone Aria Thompson MD Primary Care Provider Reason for Visit * Reason Onset Date Comments Biopsy Results 08/12/2020 Encounter Details Date Type Department Care Team (Late st Contact Info) Description 08/12/2020 Telephone [facility] [place] Endocrinology [address] [place] [phone] Vanita Boykin RN Biopsy Results Social History [...] Encounter - Vanita Boykin RN - 08/12/2020 3341 EST Pt. Given this information, has no [...] on filedocumented in this encounter Care Teams School Resource Officer Relationship Specialty Start Date End Date Aria Tohmpson MD PCP - General 12/03/17 06/26/24 documented as of this encounter
--- OUTSIDE RECORDS SUMMARY | 2024-09-12 00:55 | XMS_ITS | Encounter Summary ---
Author Organization [facility] Address [address] [place] [address] Care Team Providers Care Supervisor Data Processing Name Role Phone Aria Thompson MD Primary Care Provider Rosi Ordoñez MD Primary Care Provider [phone] Encounter Details Date Type Department Care Team (Late st Contact Info) Description 06/21/2021 Lab Requisition [facility] Pathology & Laboratory Medicine - [facility] [address] [place] [address] Aria Thompson MD [address] [place] [address] Encounter for gynecological examination (general) [...] types, PCR Negative Negative 06/30/2021 7:59 EDT [facility] Comment:No E6 or E7 mRNA is detected from HPV types 16,18,31,33,35,39,45,51,52,56,58,59,66, and 68 by pump servicer helper mediated amplification. Papanicolaou smear specimen (specimen) CERVIX UTERI STRUCTURE / Unknown 06/20/2021 17:11 EDT 06/27/2021 12:22 EDT us Aria Thompson MD MICROBIOLOGY - GENERAL ORDERABLES Final Result [facility] [address] [place] [address] * PAP TEST (06/20/2021 17:11 EDT) Specimens A. Cervix and/or Endocervix , ThinPrep Imaging System with Manual Evaluation 06/30/2021 7:59 EDT [facility] Specimen Adequacy Satisfactory for Evaluation - transformation zone component present 06/30/2021 7:59 EDT [facility] General Categorization Negative for intraepithelial lesion or malignancy 06/30/2021 7:59 EDT [facility] Descriptive Diagnosis Fungal organisms present morphologically consistent with Shaye species. 06/30/2021 7:59 EDT [facility] Attestation . 06/30/2021 7:59 EDT [facility] at 0759 Clinical History Clinical History, Signs, Symptoms, Chief Complaint, Pertaining to This Order: See below Last Menstral Period: MENOPAUSE 06/30/2021 7:59 EDT [facility] HPV The result for the Human Papillomavirus (HPV) Detection-High Risk Types is Negative. No E6 or E7 mRNA is detected from HPV types 16,18,31,33,35,39 ,45,51,52,56,58,5 9,66, and 68 by pump servicer helper mediated amplification.Carly ting was performed on specimen [id number] and was resulted on 06/30/2021 0721 EDT by EVIE, LAB INSTRUMENT RESULTS IN 06/30/2021 7:59 EDT [facility] Performing Lab [facility] 06/30/2021 7:59 EDT [facility] Scanned Images 06/30/2021 7:59 EDT [facility] Papanicolaou smear specimen (specimen) CERVIX UTERI STRUCTURE / Unknown 06/20/2021 17:11 EDT 06/22/2021 9:01 EDT us Aria Thompson MD PATHOLOGY ORDERABLES Fi nal Result [facility] [address] [place] [address] documented in this encounter Visit Diagnoses Diagnosis Encounter for gynecological examination (general) (routine) without abnormal findings documented in this encounter Care Teams Supervisor Data Processing Relationship Specialty Start Date End Date Aria Thompson MD PCP - General 12/03/17 06/26/24 Rosi Ordoñez MD [address] [place] [phone] PCP - General Family Medicine - Primary Care 06/27/24 documented as of this encounter
--- OUTSIDE RECORDS SUMMARY | 2024-09-12 00:55 | XMS_ITS | Encounter Summary ---
Author Organization [facility] Address [address] [place] [address] Care Team Providers Care Commercial Counsel Name Role Phone Aria Thompson MD Primary Care Provider Reason for Visit * Reason Comments Thyroid Problem consult on thyroid n odules Encounter Details Date Type Department Care Team (Late st Contact Info) Description 06/23/2020 14:00 EDT Office Visit [facility] Endocrinology [address] [place], [place] [phone] Joanne Sotomayor MD [address] [facility] [address] [place] [address] Nontoxic multinodular goiter (Primary Dx) [...] For patients, please refer to guidance in [employer] on how to locate information. Generally this [...] 1 added in this encounter Care Teams Commercial Counsel Relationship Specialty Start Date End Date Aria Thompson MD PCP - General 12/03/17 06/26/24 documented as of this encounter
--- OUTSIDE RECORDS SUMMARY | 2024-09-12 00:55 | XMS_ITS | Encounter Summary ---
Author Organization [facility] Address [address] [place] [address] Care Team Providers Care Cigar Packer And Grader Name Role Phone Aria Thompson MD Primary Care Provider Reason for Visit * Reason Onset Date Comments Appointment Related 04/29/2020 Bumped Encounter Details Date Type Department Care Team (Late st Contact Info) Description 04/29/2020 Telephone [facility] Endocrinology - [facility] [address] [place] [address] Amber Mendosa DO [address] [facility] [address] [place] [address] Appointment Related (Bumped) Social History [...] on filedocumented in this encounter Care Teams Cigar Packer And Grader Relationship Specialty Start Date End Date Aria Thompson MD PCP - General 12/03/17 06/26/24 documented as of this encounter
--- OUTSIDE RECORDS SUMMARY | 2024-09-12 00:55 | XMS_ITS ---
Author Organization Unknown Address [address] [place] [phone] Phone Care Team Providers Care Hospital Supervisor Name Role Phone SP CARY Attending Unavailable Results US CHEST - Completed: 2022 13:18 [facility] [place], [place] [address] PACS TELEPHONE ENGINEER REPORT Patient Name: SKYLA LONDONO MRN: Sex: : Age: [id number] F [id number] Account: Accession: Admit: StayType: [id number] 11/17/2022 O/P Ordered: Order ID: Submitted: Ordering Provider: 11/17/2022 12:39 [id number] [facility] RAEANN SNOWDEN Completed: Technologist: Resulted: 11/17/2022 13:18 [facility] 11/17/2022 14:43 Study Description: US CHEST Study [...] Code Syst em Smoking History Former smoker 0917711 SNOMED CT Sex Female Medications Medication Start Date End Date Route Frequency Dose Code Code System Medication Instructions Home Meds Trileptal 300MG Oral Tablet 10/03/2014 Unknown ORAL THREE TIMES A DAY 300 MILLIGRAMS [id number] RxNorm TAKE 300 MILLIGRAMS ORAL THREE TIMES [...] Code Sys tem Mass of trunk 11/17/2022 [id number] [facility] Personal Care Team Section Performer Name Performer Role Active Date Inactive Da te
--- OUTSIDE RECORDS SUMMARY | 2024-09-12 00:55 | XMS_ITS | Encounter Summary ---
Author Organization [facility] Address [address] [place] [address] Care Team Providers Care Ski Topper Name Role Phone Rosi Ordoñez MD Primary Care Provider [phone] Encounter Details Date Type Department Care Team (Late st Contact Info) Description 07/16/2024 Lab Requisition [facility] Pathology & Laboratory Medicine - [address] [address] Fazal Tee MD [address] [place] [id number] Nontoxic multinodular goiter Social History Tobacco Use [...] Name Priority Date/Time Associated Diagnosis Comments NON ORTHO RN/FNA CYTOLOGY Today 07/15/2024 12:20 EST Nontoxic multinodular goiter documented in this encounter Results * NON ORTHO RN/FNA CYTOLOGY (07/15/2024 12:20 EST) Ancillary Studies Addendum This addendum report is issued to provide the [facility] Gene Sequencing Manager Of Tax results. Please see the attached documentation. 07/29/2024 16:00 [facility] Addendum electronically signed by Jony Cr MD on 07/29/2024 at 1600 Note to Patient The following pathology results have been interpreted by your pathologist and may be available to you before your health provider has had the opportunity to review them. Please allow time for your provider to receive these results and explore management options, if applicable. 07/29/2024 16:00 [facility] Final Diagnosis A. THYROID, LEFT, ULTRASOUND-GUIDED FINE-NEEDLE ASPIRATION: - Atypia of undetermined significance (AUS). - See comment 07/29/2024 16:00 [facility] Diagnosis Comment Stained aspirate smear [...] the specimen processing was performed at the [facility] [place] [facility] Pathology Department, [address] [place] [address] (CLIA [id number]). The professional component of the specimen evaluation (slide review and issuing of the final diagnosis) was performed at [facility], [address] [place] [address] (CLIA License Number [id number]). 07/29/2024 16:00 [facility] Attestation By the signature below, the attending physician certifies that they have personally conducted a gross and/or microscopic examination of the described specimens and rendered or confirmed the above diagnosis. 07/29/2024 16:00 [facility] at 1152 Rapid Diagnosis A. THYROID NODULE (2.8 CM), LEFT, ULTRASOUND GUIDED FINE NEEDLE ASPIRATION: Evaluation Episode 1: Pass 1-2: Adequate follicular cells; abundant siderophage's. Afirma collected.( 2 dedicated passes). The above rapid on site evaluation was performed by pathologist Dr. Areli Garcia at [facility] [place] [facility], [address] [place] [address]. 07/15/24; 1220 07/29/2024 16:00 [facility] Clinical History 2.8cm left thyroid nodule. E04.2 07/29/2024 16:00 [facility] Gross Description A. 3 fixed prepared slides, 4 air dried prepared slides, and 1 tube of CytoLyt were received and processed by selective cellular enhancement technique. 1 FNAprotect tube for possible Afirma testing was also received and will be held for 60 days from date of collection. 07/29/2024 16:00 [facility] Performing Lab [facility] 16:00 [facility] Scanned Images 07/29/2024 16:00 [facility] Fine Needle Aspirate STRUCTURE OF LEFT LOBE OF THYROID GLAND / Unknown 07/15/2024 12:20 EST 07/16/2024 6:10 EST us Fazalandi Tee MD PATHOLOGY ORDERABLES Edited Resu lt - Final [facility] [address] [place] [address] [facility] [address] [place], [place] [phone] documented in this encounter Visit Diagnoses Diagnosis Nontoxic multinodular goiter documented in this encounter Care Teams Ski Topper Relationship Specialty Start Date End Date Rosi Ordoñez MD [address] [place] [address] PCP - General Family Medicine - Primary Care 06/27/24 documented as of this encounter
--- OUTSIDE RECORDS SUMMARY | 2024-09-12 00:55 | XMS_ITS | Encounter Summary ---
Author Organization [facility] Address [address] [place] [address] Care Team Providers Care Resaw Operator Name Role Phone Aria Thompson MD Primary Care Provider Rosi Ordoñez MD Primary Care Provider [phone] Encounter Details Date Type Department Care Team (Late st Contact Info) Description 08/08/2022 Lab Requisition [facility] Pathology & Laboratory Medicine - [address] [address] Everette Varma MD [address] [place] [address] Rash and other nonspecific skin eruption Social [...] explore management options, if applicable. 08/09/2022 11:08 [facility] Final Diagnosis A. SKIN OF BACK, MID, PUNCH BIOPSY: - Superficial perivascular dermatitis with eosinophils and foci of ulceration. See microscopic and comment. 08/09/2022 11:08 [facility] Diagnosis Comment The biopsy shows evidence of excoriation. Within the dermis is an underlying inflammatory infiltrate which includes lymphomononuclear cells and eosinophils. Also present within the epidermis is focal acantholysis which may be secondary to the excoriation, but also raises transient acantholytic dermatosis ([place]'s disease) as a consideration. A drug-related eruption can not entirely be excluded. There is no evidence of granulomatous inflammation. 08/09/2022 11:08 [facility] Attestation By the signature below, the attending physician certifies that they have 1) personally conducted a gross and/or microscopic examination of the described specimen(s), and/or personally interpreted the results of laboratory testing of the described specimen(s), and 2) personally rendered or confirmed the above diagnosis. 08/09/2022 11:08 [facility] at 1108 Microscopic Description Sections consist of a punch biopsy of skin. There is epidermal ulceration with serum crust. The intact epidermis is relatively unremarkable although foci of acantholysis are noted. Within the dermis is a superficial perivascular lymphomononuclear infiltrate with rare eosinophils. 08/09/2022 11:08 [facility] Clinical History Skin rash in the setting of ulcerative colitis; drug rash vs. dermatologic manifestations of IBD; clinical diagnosis code: R21 08/09/2022 11:08 [facility] Gross Description A. Received in formalin labelled with proper patient identification (initials B, E) and punch biopsy skin of mid back with maculopapular rash is a mottled corea-white and corea skin punch biopsy measuring 0.6 x 0.4 cm and excised to a depth of 0.4 cm. Bisected and submitted entirely in A1. KATE WELLER(ASCP) 08/08/2022 19:10 08/09/2022 11:08 [facility] Performing Lab [facility] 08/09/2022 11:08 [facility] Scanned Images 08/09/2022 11:08 [facility] Tissue TISSUE SPECIMEN FROM SKIN / Unknown 08/07/2022 13:00 EST 08/08/2022 17:22 EST us Everette Varma MD PATHOLOGY ORDERABLES F inal Result [facility] [address] [place] [address] documented in this encounter Visit Diagnoses Diagnosis Rash and other nonspecific skin eruption documented in this encounter Care Teams Resaw Operator Relationship Specialty Start Date End Date Aria Thompson MD PCP - General 12/03/17 06/26/24 Rosi Ordoñez MD [address] [place] [phone] PCP - General Family Medicine - Primary Care 06/27/24 documented as of this encounter
--- OUTSIDE RECORDS SUMMARY | 2024-09-12 00:55 | XMS_ITS | Encounter Summary ---
Author Organization [facility] Address [address] [place] [address] Care Team Providers Care Lighting Specialist Name Role Phone Aria Thompson MD Primary Care Provider Reason for Visit * Reason Comments Follow-up nodule and ultrasoun d Encounter Details Date Type Department Care Team (Late st Contact Info) Description 06/30/2021 9:30 EDT Office Visit [facility] Endocrinology [address] [place], [place] [address] Joanne Sotomayor MD [address] [facility] [address] [place] [address] Multinodular non-toxic goiter (Primary Dx) [...] Corona RN - 06/30/2021 0930 EDT Goiter Gove ordered Letter mailed * Joanne Gunn MD [...] she will call endo and ENT at [facility] and ask if they perform that procedure [...] 06/16/2021 added in this encounter Care Teams Lighting Specialist Relationship Specialty Start Date End Date Aria Thompson MD PCP - General 12/03/17 06/26/24 documented as of this encounter
--- OUTSIDE RECORDS SUMMARY | 2024-09-12 00:55 | XMS_ITS | Encounter Summary ---
Author Organization [facility] Address [address] [place] [address] Care Team Providers Care Life Sciences Teacher Name Role Phone Aria Thompson MD Primary Care Provider Rosi Ordoñez MD Primary Care Provider [phone] Encounter Details Date Type Department Care Team (Late st Contact Info) Description 08/04/2022 Lab Requisition [facility] - Main [address] [id number] Derrick Mir MD [address] [place] [address] Ulcerative colitis, unspecified, without complications ([facility]) Social History Tobacco Use Types Packs/Day [...] EST Ulcerative colitis, unspecified, without complications (HCC-CMS) ([facility]) documented in this encounter Results * SURGICAL PATHOLOGY (08/03/2022 13:25 EST) Note to Patient The following pathology results have been interpreted by your pathologist and may be available to you before your health provider has had the opportunity to review them. Please allow time for your provider to receive these results and explore management options, if applicable. 08/07/2022 15:57 [facility] Final Diagnosis A. COLON, [...] comment. - Negative for dysplasia. 08/07/2022 15:57 [facility] Diagnosis Comment Histologic sections show chronic active colitis consistent with the patient's history of ulcerative colitis. There is no evidence of CMV on H&E sections. Dr. Keisha Garcia reviewed this case in consultation and agrees with the above diagnosis. 08/07/2022 15:57 [facility] Attestation By the signature below, the attending physician certifies that they have 1) personally conducted a gross and/or microscopic examination of the described specimen(s), and/or personally interpreted the results of laboratory testing of the described specimen(s), and 2) personally rendered or confirmed the above diagnosis. 08/07/2022 15:57 [facility] at 1557 Clinical History hx ulcerative colitis, r/o CMV 08/07/2022 15:57 [facility] Gross Description A. Received in formalin labeled ? Elsa L. Corozal? and ? transverse colon Bx? is a single mucosal tissue fragment measuring 0.4 x 0.2 x 0.1 cm. Entirely submitted in A1. B. Received in formalin labeled ? Elsa L. Corozal? and ? descending colon Bx? are 2 mucosal tissue fragments ranging in size from less than 0.1 cm (may not survive processing) and 0.6 x 0.1 x 0.1 cm. Entirely submitted in B1. C. Received in formalin labeled ? Elsa L. Corozal? and ? sigmoid colon? is a single mucosal tissue fragment measuring 0.2 x 0.1 x 0.1 cm. Entirely submitted in C1. D. Received in formalin labeled ? Elsa L. Corozal? and ? rectum Bx? is a single mucosal tissue fragment measuring 0.4 x 0.1 x 0.1 cm. Entirely submitted in D1. ANNA VIGIL 08/04/2022 10:33 08/07/2022 15:57 [facility] Performing Lab [facility] 08/07/2022 15:57 [facility] Scanned Images 08/07/2022 15:57 [facility] Tissue SPECIMEN FROM RECTUM [...] Derrick Mir MD PATHOLOGY ORDERABLES Final Result [facility] [address] [place] [address] documented in this encounter Visit Diagnoses Diagnosis Ulcerative colitis, unspecified, without complications (HCC-CMS) documented in this encounter Care Teams Life Sciences Teacher Relationship Specialty Start Date End Date Aria Thompson MD PCP - General 12/03/17 06/26/24 Rosi Ordoñez MD [address] [place] [address] PCP - General Family Medicine - Primary Care 06/27/24 documented as of this encounter
--- OUTSIDE RECORDS SUMMARY | 2024-09-12 00:55 | XMS_ITS | Encounter Summary ---
Author Organization [facility] Address [address] [place] [address] Care Team Providers Care Federal Judge Name Role Phone Aria Thompson MD Primary Care Provider Rosi Ordoñez MD Primary Care Provider [phone] Encounter Details Date Type Department Care Team (Late st Contact Info) Description 08/31/2023 Lab Requisition [facility] Pathology & Laboratory Medicine - [address] [address] Outr Resulting Lab, Provider Social History Tobacco [...] 10:21 EST) Hold Hold 08/31/2023 18:46 EST [facility] Blood VENOUS BLOOD / Unknown 08/31/2023 10:21 EST 08/31/2023 17:44 EST us Provider Outr Resulting Lab LAB INFO SERVICE AND SUPPORT & PHONE RESULT Final Result [facility] [address] [place] [address] * SPEP, INCLUDES QUANTITATION OF MONOCLONAL SPIKE PERFORMABLE (08/31/2023 10:21 EST) Albumin % 65.9 55.8 - 66.1 % 09/03/2023 13:08 [facility] Albumin g/dL 4.2 3.6 - 5.2 g/dL 09/03/2023 13:08 [facility] Alpha-1 % 3.7 2.9 - 4.9 % 09/03/2023 13:08 [facility] Alpha-1 g/dL 0.20 0.15 - 0.40 g/dL 09/03/2023 13:08 [facility] Alpha-2 % 8.9 7.1 - 11.8 % 09/03/2023 13:08 [facility] Alpha-2 g/dL 0.60 0.50 - 1.00 g/dL 09/03/2023 13:08 [facility] Beta % 9.4 8.4 - 13.1 % 09/03/2023 13:08 [facility] Beta g/dL 0.60 0.60 - 1.20 g/dL 09/03/2023 13:08 [facility] Gamma % 12.1 11.1 - 18.8 % 09/03/2023 13:08 [facility] Gamma g/dL 0.80 0.60 - 1.60 g/dL 09/03/2023 13:08 [facility] SPEP Comment No apparent monoclonal protein seen on serum electrophoresis 09/03/2023 13:08 [facility] Comment:See scanned/suppleme ntary report. Total Protein 6.4 6.3 - 8.2 g/dL 09/03/2023 13:08 [facility] Blood VENOUS BLOOD / Unknown 08/31/2023 10:21 EST 08/31/2023 17:44 EST us Provider Outr Resulting Lab CHEMISTRY & BLOOD GA S ORDERABLES Final Result Performing Organization Address [facility]/ZIP Co de Phone Number [facility] [address] [place] [address] * PROTEIN, TOTAL (08/31/2023 10:21 EST) Blood VENOUS BLOOD / Unknown 08/31/2023 10:21 EST 08/31/2023 17:44 EST us Provider Outr Resulting Lab CHEMISTRY & BLOOD GA S ORDERABLES Final Result Performing Organization Address City/[facility]/ZIP Co de Phone Number [facility] [address] [place] [address] * IGG (08/31/2023 10:21 EST) IgG 746 610 - 1,616 mg/dL 09/03/2023 8:49 EST [facility] Blood VENOUS BLOOD / Unknown 08/31/2023 10:21 EST 08/31/2023 17:44 EST us Provider Outr Resulting Lab CHEMISTRY & BLOOD GA S ORDERABLES Final Result [facility] [address] [place] [address] documented in this encounter Visit Diagnoses Not on filedocumented in this encounter Care Teams Federal Judge Relationship Specialty Start Date End Date Aria Thompson MD PCP - General 12/03/17 06/26/24 Rosi Ordoñez MD [address] [place] [phone] PCP - General Family Medicine - Primary Care 06/27/24 documented as of this encounter
--- OUTSIDE RECORDS SUMMARY | 2024-09-12 00:55 | XMS_ITS | Encounter Summary ---
Author Organization [facility] Address [address] [place] [address] Care Team Providers Care Cullet Crusher Name Role Phone Aria Thompson MD Primary Care Provider Rosi Ordoñez MD Primary Care Provider [phone] Encounter Details Date Type Department Care Team (Late st Contact Info) Description 08/31/2023 Lab Requisition [facility] Pathology & Laboratory Medicine - [address] [address] Outr Resulting Lab, Provider Social History Tobacco [...] 10:21 EST) Hold Hold 08/31/2023 18:46 EST [facility] Blood VENOUS BLOOD / Unknown 08/31/2023 10:21 EST 08/31/2023 17:44 EST us Provider Outr Resulting Lab LAB INFO SERVICE AND SUPPORT & PHONE RESULT Final Result Performing Organization Address City/[facility]/ZIP Co de Phone Number [facility] [address] [place] [address] * HEPATITIS C AB W REFLEX TO HCV RNA BY PCR (08/31/2023 10:21 EST) Hep C Antibody Negative Negative 08/31/2023 19:48 EST [facility] Blood VENOUS BLOOD / Unknown 08/31/2023 10:21 EST 08/31/2023 17:44 EST us Provider Outr Resulting Lab CHEMISTRY & BLOOD GA S ORDERABLES Final Result Performing Organization Address City/[facility]/ZIP Co de Phone Number [facility] [address] [place] [address] * ALPHA 1 ANTITRYPSIN (08/31/2023 10:21 EST) Alpha 1 Antitrypsin 124 90 - 200 mg/dL 09/03/2023 10:13 EST [facility] Blood VENOUS BLOOD / Unknown 08/31/2023 10:21 EST 08/31/2023 17:44 EST us Provider Outr Resulting Lab CHEMISTRY & BLOOD GA S ORDERABLES Final Result Performing Organization Address [facility] de Phone Number [facility] [address] [place] [address] * (ABNORMAL) ANTI NUCLEAR AB (TORRES), IFA (08/31/2023 10:21 EST) TORRES Interpretation Positive(A) Negative 09/03/2023 15:59 EST [facility] Comment: For titers greater than [...] Pattern 1 1:2560 Homogeneous 09/03/2023 15:59 EST [facility] Blood VENOUS BLOOD / Unknown 08/31/2023 10:21 EST 08/31/2023 17:44 EST Narrative [facility] - 09/03/2023 15:59 EST Results were obtained with the INOVA NOVA Lite HEp-2 TORRES Kit by indirect immunofluorescence. us Provider Outr Resulting Lab IMMUNOLOGY AND SEROL OGY ORDERABLES Final Result Performing Organization Address [facility] Co de Phone Number [facility] [address] [place] [address] documented in this encounter Visit Diagnoses Not on filedocumented in this encounter Care Teams Cullet Crusher Relationship Specialty Start Date End Date Aria Thompson MD PCP - General 12/03/17 06/26/24 Rosi Ordoñez MD [address] [place] [phone] PCP - General Family Medicine - Primary Care 06/27/24 documented as of this encounter
--- OUTSIDE RECORDS SUMMARY | 2024-09-12 00:55 | XMS_ITS | Encounter Summary ---
Author Organization [facility] Address [address] [place] [address] Care Team Providers Care Walking Dragline Operator Name Role Phone Aria Thompson MD Primary Care Provider Reason for Visit * Reason Onset Date Comments Appointment Related 09/15/2019 Encounter Details Date Type Department Care Team (Late st Contact Info) Description 09/15/2019 Telephone [facility] Endocrinology - [facility] [address] [place] [address] Amber Mendosa DO [address] [facility] [address] [place] [address] Appointment Related Social History Tobacco [...] Advised patient clinic is now located at [address] [place] [address] documented in this encounter Plan of Treatment Not on file documented as of this encounter Visit Diagnoses Not on filedocumented in this encounter Care Teams Walking Dragline Operator Relationship Specialty Start Date End Date Aria Thompson MD PCP - General 12/03/17 06/26/24 documented as of this encounter
--- OUTSIDE RECORDS SUMMARY | 2024-09-12 00:56 | XMS_ITS | Encounter Summary ---
Author Organization [facility] Address [address] [place] [address] Care Team Providers Care Patternmaker Bench Name Role Phone Unavailable Primary Care Provider Unavailabl e Encounter Details Date Type Department Care Team (Latest Contact Info) Description 04/13/2006 8:59 EDT - 04/13/2006 11:59 EDT Hospital Encounter [facility] [address] [place] [address] Michel Balderrama MD Discharge Disposition: Auto Discharge [...] ORDERABLES Kourtney morfin Result Performing Organization Address City/State/[facility] Co de Phone Number [facility] [address] [place] [address] * L SPINE 2-3 VIEWS (04/13/2006 10:00 [...]
--- OUTSIDE RECORDS SUMMARY | 2024-09-12 00:56 | XMS_ITS | Encounter Summary ---
Author Organization [facility] Address [address] [place] [address] Care Team Providers Care Case Assistant Name Role Phone Aria Thompson MD Primary Care Provider Reason for Referral * Prior Authorization (Routine) - Closed Specialty Diagnoses / Procedures Referred By Merari rosario Referred To Contact Psychology Diagnoses Memory loss Seizures (HCC-CMS) Marleny Quezada MD Phone: tel: fax: [facility] Memory Program - Medical Office Building [address] [place] [address] Phone: tel: fax: Referral ID Status Reason Start Date Expiration Date V isits Requested Visits Authorized [id number] Closed Specialty Services Required 10/29/2018 1 1 Question Answer Reason for Request: worsening subjective memory, noticeable at work Can the patient act on his/her own behalf? If no, provide contact information below. Yes Name, Address and Phone Number of Bow Maker (Other than the Patient) to be Contacted for Appointment Confirmation and Other Questions: see PRISM * Consult (Routine) - Specialty Report Received Specialty Diagnoses / Procedures Referred By Merari rosario Referred To Contact Osteoporosis Diagnoses Osteoporosis, unspecified osteoporosis type, unspecified pathological fracture presence Marleny Quezada MD Phone: tel: fax: [facility] Osteoporosis - [address] [address] Phone: tel: fax: Referral ID Status Reason Start Date Expiration Date Visits Requested Visits Authorized [id number] Specialty Report Received Specialty Services Required 10/29/2018 1 1 Question Answer Reason for Request: osteoporosis Reason for Visit * Reason Comments Follow-up Encounter Details Date Type Department Care Team (Late st Contact Info) Description 10/29/2018 10:30 EST Office Visit [facility] Neurology [facility] [address] [place] [address] Marleny Quezada MD [address] [place] [address] Seizures ([facility]) (Primary Dx); Osteoporosis, unspecified osteoporosis type, unspecified [...] MD, MD - 10/29/2018 1030 EST .[facility] ?? FOLLOW UP - 10/29/2018 ? [...] density scan 09/17/2018 at [facility]: osteoporosis of lumbar spine and osteopenia of left hip. MRI Brain 08/09/2017 with non specific white matter changes. LABS: No recent labs available. EMG: April 2018- The electrodiagnostic study was normal today which is reassuring. There is no need for further neurological investigations unless there is change in symptoms. EEG: April 2018, 72 hour ambulatory and baseline studies at [facility] Impression: Abnormal ambulatory monitoring study with left [...] Outpatient Referral Routine Memory Loss Seizures (CMS-HCC) ([facility]) Ordered: 10/29/2018 documented as of this encounter Visit Diagnoses Diagnosis Seizures (HCC-CMS)- Primary Other convulsions Osteoporosis, unspecified osteoporosis type, unspecified pathological fracture presence Memory loss documented in this encounter Care Teams Case Assistant Relationship Specialty Start Date End Date Aria Thompson MD PCP - General 12/03/17 06/26/24 documented as of this encounter
--- OUTSIDE RECORDS SUMMARY | 2024-09-12 00:56 | XMS_ITS | Encounter Summary ---
Author Organization [facility] Address [address] [place] [address] Care Team Providers Care Iron Erector Name Role Phone Aria Thompson MD Primary Care Provider Reason for Visit * Reason Onset Date Comments Appointment Related 12/03/2017 Encounter Details Date Type Department Care Team (Late st Contact Info) Description 12/03/2017 Telephone Vascular Surgery and Endovascular Therapy - [address] [phone] Everette Boggs MD [address] [facility], [address] [place] [address] Appointment Related Social History Tobacco [...] on filedocumented in this encounter Care Teams Iron Erector Relationship Specialty Start Date End Date Aria Thompson MD PCP - General 12/03/17 06/26/24 documented as of this encounter
--- OUTSIDE RECORDS SUMMARY | 2024-09-12 00:56 | XMS_ITS | Encounter Summary ---
Author Organization [facility] Address [address] [place] [address] Care Team Providers Care Director Of Maintenance Name Role Phone Aria Thompson MD Primary Care Provider Reason for Visit * Reason Comments Follow-up Encounter Details Date Type Department Care Team (Late st Contact Info) Description 06/10/2018 11:[address] [facility] Neurology [facility] [address] [place] [address] Marleny Quezada MD [address] [place] [address] Seizures ([facility]) (Primary Dx); Osteopenia, unspecified location; On antiepileptic [...] Quezada MD - 06/10/2018 1130 EDT [facility] NEUROLOGY ?? FOLLOW UP - 06/10/2018 [...] had her labs, MRI brain done at [facility]. I do not have any [...] reflexes are symmetric throughout. No pathological reflexes. [id number], rapid alternating movements are intact. Romberg sign absent. Gait normal. IMAGING: Not available. LABS: Not available. EMG: April 2018- The electrodiagnostic study was normal today which is reassuring. There is no need for further neurological investigations unless there is change in symptoms. EEG: April 2018, 72 hour ambulatory and baseline studies at [facility] Impression: Abnormal ambulatory monitoring study with [...] of this encounter Visit Diagnoses Diagnosis Seizures ([facility])- Primary Other convulsions Osteopenia, unspecified location On antiepileptic therapy documented in this encounter Discontinued Medications Medication Sig Discontinue Reason Start Date End Da te OXcarbazepine (TRILEPTAL) 300 mg tablet Take 300 mg by mouth 4 times daily. Reorder 06/10/2018 documented as of this encounter Care Teams Director Of Maintenance Relationship Specialty Start Date End Date Aria Thompson MD PCP - General 12/03/17 06/26/24 documented as of this encounter
--- OUTSIDE RECORDS SUMMARY | 2024-09-12 00:56 | XMS_ITS | Encounter Summary ---
Author Organization [facility] Address [address] [place] [address] Care Team Providers Care Golf Stud Riveter Name Role Phone Aria Thompson MD Primary Care Provider Reason for Visit * Reason Onset Date Comments Other 11/05/2018 Encounter Details Date Type Department Care Team (Late st Contact Info) Description 11/05/2018 Telephone [facility] Neurology - [place] [address] [place] [address] Marleny Quezada MD [address] [place] [address] Other Social History Tobacco Use [...] on filedocumented in this encounter Care Teams Golf Stud Riveter Relationship Specialty Start Date End Date Aria Thompson MD PCP - General 12/03/17 06/26/24 documented as of this encounter
--- OUTSIDE RECORDS SUMMARY | 2024-09-12 00:56 | XMS_ITS | Encounter Summary ---
Author Organization [facility] Address [address] [place] [address] Care Team Providers Care Control Board Operator Name Role Phone Bartolo Landon MD Primary Care Provider [phone] Encounter Details Date Type Department Care Team (Late st Contact Info) Description 07/04/2005 Results Only [facility] [address] [place] [address] Mandi Sawyer PA [address] [place], [place] [phone] Social History Tobacco Use Types Packs/Day Years [...] ? SKYLA LONDONO ? Accession #: ? [id number] ? : ? 1960 (Age: 44) ??F [...] ??There is no evidence of vasculitis. ??(Dr. Villa)/[facility] Microscopic Description: ? Sections consist of a [...] there is no evidence of vasculitis. (Dr. Villa)/[facility] Document reviewed and electronically signed by: SANDRA VILLA MD Report ??Date: 07/06/2005 15:49 By the signature above, the attending physician certifies that he/she has personally conducted a gross and/or microscopic examination of the described specimens and rendered or confirmed the above diagnosis. Specimen(s) Received: ? R hip Clinical History: ? Hx ??mild ulcerative colitis; urticaria Gross Description: ? Received in formalin labelled [place] and R hip is a punch biopsy of corea-pink skin measuring 0.3 cm in diameter and 0.2 cm in thickness. ??The specimen is submitted intact in one cassette. ??(Dr. Echols)/[facility] End of Report [facility] 07/04/2005 07/05/2005 13: 22 EST [facility] PATHOLOGY ORDERABLES Final Result Performing Organization Address City/State/[facility] Co de Phone Number [facility] [address] [place] [address] documented in this encounter Visit Diagnoses Not on filedocumented in this encounter Care Teams Control Board Operator Relationship Specialty Start Date End Date Bartolo Landon MD [address] [place] [address] PCP - General 03/12/09 12/02/17 documented as of this encounter
--- OUTSIDE RECORDS SUMMARY | 2024-09-12 00:56 | XMS_ITS | Encounter Summary ---
Author Organization [facility] Address [address] [place] [address] Care Team Providers Care Remote Sensing Research Scientist Name Role Phone Bartolo Landon MD Primary Care Provider [phone] Encounter Details Date Type Department Care Team (Latest Contact Info) Description 01/01/2017 14:58 EDT - 01/01/2017 23:59 EDT Hospital Encounter [facility] [address] [place] [address] Sarah Lopez MD Discharge Disposition: Home or Self Care [...] Code Departure Means Destination Home or Self Shelter documented in this encounter Plan of Treatment Not on file documented as of this encounter Visit Diagnoses Not on filedocumented in this encounter Care Teams Remote Sensing Research Scientist Relationship Specialty Start Date End Date Bartolo Landon MD [address] [facility] [phone] PCP - General 03/12/09 12/02/17 documented as of this encounter
--- OUTSIDE RECORDS SUMMARY | 2024-09-12 00:56 | XMS_ITS | Encounter Summary ---
Author Organization [facility] Address [address] [place] [address] Care Team Providers Care Urologic Nurse Name Role Phone Aria Thompson MD Primary Care Provider Reason for Visit * Reason Onset Date Comments Follow-up 05/30/2019 Encounter Details Date Type Department Care Team (Late st Contact Info) Description 05/30/2019 Telephone [facility] Psychology - [address] [phone] Amber Andersen, PhD [address] [phone] Follow-up Social History Tobacco Use [...] contact our service with future concerns at [phone]. documented in this encounter Plan of Treatment Not on file documented as of this encounter Visit Diagnoses Not on filedocumented in this encounter Care Teams Urologic Nurse Relationship Specialty Start Date End Date Aria Thompson MD PCP - General 12/03/17 06/26/24 documented as of this encounter
--- OUTSIDE RECORDS SUMMARY | 2024-09-12 00:56 | XMS_ITS | Encounter Summary ---
Author Organization [facility] Address [address] [place] [address] Care Team Providers Care Pole Classifier Name Role Phone Aria Thompson MD Primary Care Provider Encounter Details Date Type Department Care Team (Latest Contact Info) Description 03/27/2019 15:54 EDT - 03/27/2019 23:59 EDT Hospital Encounter [facility] [address] [place] [address] Amber Mendosa, DO [address] [address] Discharge Disposition: Auto Discharge Social [...] on filedocumented in this encounter Care Teams Pole Classifier Relationship Specialty Start Date End Date Aria Thompson MD PCP - General 12/03/17 06/26/24 documented as of this encounter
--- OUTSIDE RECORDS SUMMARY | 2024-09-12 00:56 | XMS_ITS | Encounter Summary ---
Author Organization [facility] Address [address] [place] [address] Care Team Providers Care Financial Aid Administrator Name Role Phone Aria Thompson MD Primary Care Provider Encounter Details Date Type Department Care Team (Late st Contact Info) Description 05/26/2018 10:14 EDT - 05/26/2018 23:59 EDT Hospital [facility] - [facility] ([place] [address]) [address] [place] [address] Sarah Lopez MD Brandenburg CenterIdris MD PhD [address] [facility]. [address] [place] [address] Discharge Disposition: Auto Discharge Social [...] filedocumented in this encounter Care Teams Financial Aid Administrator Relationship Specialty Start Date End Date Aria Thompson MD PCP - General 12/03/17 06/26/24 documented as of this encounter
--- OUTSIDE RECORDS SUMMARY | 2024-09-12 00:56 | XMS_ITS | Encounter Summary ---
Author Organization [facility] Address [address] [place] [address] Care Team Providers Care Piece Dyer Name Role Phone Bartolo Landon MD Primary Care Provider [phone] Aria Thompson MD Primary Care Provider Encounter Details Date Type Department Care Team (Late st Contact Info) Description 06/28/2010 Historical Results Only [facility] - Main [address] [id number] Frederick Chinchilla MD [address] [place] [address] Social History Tobacco Use Types Packs/Day Years [...] 12:4 8 EDT 06/28/2010 16:17 EDT Narrative [facility] - 07/01/2010 12:59 EDT ----- ------- Name: SKYLA LONDONO ? : 56 ?Age/Sex: 58/F ?Unit#: [id number] ? Loc: AGO ? Status: REG POV ?? Reg Date: 06/28/10 ? Pt.Phone Number: ? ----- ------- Specimen: [id number] ?STATUS: SOUT ?Spec Date:06/28/10 ? Physician Copies: ?Frederick Chinchilla J Tissues: ? Cervical/Endo Pap ? CPT: 31370 ?? Units: ??1 ----- ------- ? CYTOLOGY [...] Performed by [facility], [address] [id number] [place] Specialist: Keisha Garcia MD PHD ----- ------- us Frederick Chinchilla MD PATHOLOGY ORDERABLES Final Result [facility] documented in this encounter Visit Diagnoses Not on filedocumented in this encounter Care Teams Piece Dyer Relationship Specialty Start Date End Date Bartolo Landon MD [address] [address] PCP - General 03/12/09 12/02/17 Aria Thompson MD [address] [address] PCP - General 12/03/17 06/26/24 documented as of this encounter
--- OUTSIDE RECORDS SUMMARY | 2024-09-12 00:56 | XMS_ITS | Encounter Summary ---
Author Organization [facility] Address [address] [place] [address] Care Team Providers Care Computer Publisher Name Role Phone Aria Thompson MD Primary Care Provider Encounter Details Date Type Department Care Team (Late st Contact Info) Description 06/27/2018 Results Only Imaging [facility]- [facility] [phone] Sarah Lopez MD Social History Tobacco Use Types Packs/Day Years [...] on filedocumented in this encounter Care Teams Computer Publisher Relationship Specialty Start Date End Date Aria Thompson MD PCP - General 12/03/17 06/26/24 documented as of this encounter
--- OUTSIDE RECORDS SUMMARY | 2024-09-12 00:56 | XMS_ITS | Encounter Summary ---
Author Organization [facility] Address [address] [place] [address] Care Team Providers Care Corporate Services Manager Name Role Phone Aria Thompson MD Primary Care Provider Reason for Referral * PT/OT/ST (Routine) - Closed Specialty Diagnoses / Procedures Referred By Merari rosario Referred To Contact Speech & Language Pathology Diagnoses Memory loss Word finding difficulty Marleny Quezada MD Phone: tel: fax: [facility] Speech & Language [address] [place] [address] Phone: tel: fax: Referral ID Status Reason Start Date Expiration Date V isits Requested Visits Authorized [id number] Closed Specialty Services Required 05/26/2019 1 1 Question Answer Reason for Request: language difficulties possibly impacting work environment Type of REGULATORY AFFAIRS CONSULTANT Eval: Communication-Cognitive Eval & Treat, Speech-Language Eval & Treat * PT/OT/ST (Routine) - Closed Specialty Diagnoses / Procedures Referred By Merari rosario Referred To Contact Rehab Therapies Diagnoses Memory loss Word finding difficulty Marleny Quezada MD Phone: tel: fax: [facility] Rehabilitation Therapy [facility] [address] [place] [address] Phone: tel: fax: Referral ID Status Reason Start Date Expiration Date V isits Requested Visits Authorized [id number] Closed Specialty Services Required 05/26/2019 1 1 Question Answer Reason for Request: language difficulties possibly impacting work environment Reason for Visit * Reason Comments Follow-up Encounter Details Date Type Department Care Team (Late st Contact Info) Description 05/26/2019 9:30 EDT Office Visit [facility] Neurology [facility] [address] [place] [address] Marleny Quezada MD [address] [place] [address] Seizures (HCC-CMS) (Primary Dx); Memory [...] MD, MD - 05/26/2019 0930 EDT [facility] NEUROLOGY ?? FOLLOW UP - 05/26/2019 [...] difficulty. IMAGING: Bone density scan 09/17/2018 at [facility]: osteoporosis of lumbar spine and osteopenia of left hip. MRI Brain 08/09/2017 with non specific white matter changes. EMG: April 2018- The electrodiagnostic study was normal today which is reassuring. There is no need for further neurological investigations unless there is change in symptoms. EEG: April 2018, 72 hour ambulatory and baseline studies at [facility] Impression: Abnormal ambulatory monitoring study [...] this time. I did refer her for REGULATORY AFFAIRS CONSULTANT/OT as per the suggestions of her evaluation. [...] of this encounter Visit Diagnoses Diagnosis Seizures ([facility])- Primary Other convulsions Memory loss Word finding difficulty Problems with communication (including speech) On antiepileptic therapy documented in this encounter Care Teams Corporate Services Manager Relationship Specialty Start Date End Date Aria Thompson MD PCP - General 12/03/17 06/26/24 documented as of this encounter
--- OUTSIDE RECORDS SUMMARY | 2024-09-12 00:56 | XMS_ITS | Encounter Summary ---
Author Organization [facility] Address [address] [place] [address] Care Team Providers Care Paint Process Engineer Name Role Phone Bartolo Landon MD Primary Care Provider [phone] Reason for Visit * Reason Onset Date Comments Procedure 11/30/2017 Encounter Details Date Type Department Care Team (Late st Contact Info) Description 11/30/2017 Orders Only Vascular Surgery and Endovascular Therapy - [address] [address] Everette Boggs MD [address] [place] [phone] Cyanotic fingertip (Primary Dx) Social History [...] 12/03/2017 9:47 EDT Vascular Diagnostic Laboratory [facility] Erp Specialist [address] [place] [address] Technologist: Ayanna Matias Fellow: IMPRESSIONS No evidence [...] MD - 12/03/2017 Vascular Diagnostic Laboratory [facility] [address] [place] [address] Technologist: Ayanna Matias Fellow: IMPRESSIONS No evidence [...] Everette Boggs 12/03/2017 09:47 Everette Boggs MD [facility] VASCULAR ORDERABLES F inal Result documented in this encounter Visit Diagnoses Diagnosis Cyanotic fingertip- Primary Cyanosis documented in this encounter Care Teams Paint Process Engineer Relationship Specialty Start Date End Date Bartolo Landon MD [address] [place] [phone] PCP - General 03/12/09 12/02/17 documented as of this encounter
--- OUTSIDE RECORDS SUMMARY | 2024-09-12 00:56 | XMS_ITS | Encounter Summary ---
Author Organization [facility] Address [address] [place] [address] Care Team Providers Care Claim Specialist Name Role Phone Aria Thompson MD Primary Care Provider Rosi Ordoñez MD Primary Care Provider Encounter Details Date Type Department Care Team (Latest Contact Info) Description 09/09/2019 Lab Requisition [facility] Pathology & Laboratory Medicine - [address] [address] Jeovany Perales MD [address] [address] Ulcerative colitis, unspecified, without complications ([facility]); Diarrhea, unspecified; Hemorrhage of anus and rectum [...] 15 EST Ulcerative colitis, unspecified, without complications ([facility]) Diarrhea, unspecified Hemorrhage of anus and rectum documented in this encounter Results * SURGICAL PATHOLOGY (09/08/2019 8:15 EST) Amendment Comment This is an amended report which replaces the original pathology report issued on 09/11/2019. This amendment is being issued to update the trainee attestation. There is no change to the diagnosis in this case. 10/24/2019 12:03 [facility] Final Diagnosis A. COLON, RIGHT, BIOPSY: - Quiescent colitis. - Negative for dysplasia. B. COLON, LEFT, BIOPSY: - Multifocal qsop-di-wgvfaqek active chronic colitis. - Negative for dysplasia. Basil Pleitez MD 10/24/2019 12:03 [facility] Amendment electronically signed by Rey Montalvo MD on 10/24/2019 at 1203 at 1020 Clinical History HX of ulcerative colitis, rectal bleeding, R/O dysplasia Evaluate for dysplasia HX ulcerative colitis since age 24 with recurrent flares No polyps or tumors 10/24/2019 12:03 [facility] Attestation There was significant resident/fellow involvement in the diagnostic evaluation of this case. By the signature below, the attending physician certifies that they have personally conducted a gross and/or microscopic examination of the described specimens and rendered or confirmed the above diagnosis. 10/24/2019 12:03 [facility] Amendment electronically signed by Rey [...] in B1-B3. 09/09/2019 16:52 10/24/2019 12:03 EST [facility] Resident/Buck w: Basil Pleitez MD 10/24/2019 12:03 EST [facility] Scanned Images 10/24/2019 12:03 EST [facility] Tissue ENTIRE LEFT COLON / Unknown 09/08/2019 8:15 EST 09/09/2019 16:30 EST Tissue specimen (specimen) LEFT COLON STRUCTURE / Unknown 09/08/2019 8:15 EST 09/09/2019 16:30 EST us Jeovany Perales MD PATHOLOGY ORDERABLES Edited Result - Final [facility] [address] [place] [address] documented in this encounter Visit Diagnoses Diagnosis Ulcerative colitis, unspecified, without complications ([facility]) Diarrhea, unspecified Hemorrhage of anus and rectum Hemorrhage of rectum and anus documented in this encounter Care Teams Claim Specialist Relationship Specialty Start Date End Date Arai Thompson MD PCP - General 12/03/17 06/26/24 Rosi Ordoñez MD [address] [place] [phone] PCP - General Family Medicine - Primary Care 06/27/24 documented as of this encounter
--- OUTSIDE RECORDS SUMMARY | 2024-09-12 00:56 | XMS_ITS | Encounter Summary ---
Author Organization [facility] Address [address] [place] [address] Care Team Providers Care Etl Informatica Developer Name Role Phone Aria Thompson MD Primary Care Provider Reason for Visit * Reason Comments Memory Loss * Prior Authorization (Routine) - Closed Specialty Diagnoses / Procedures Referred By Merari rosario Referred To Contact Psychology Diagnoses Memory loss Seizures (HCC-CMS) Marleny Quezada MD Phone: tel: fax: [facility] Memory Program - Medical Office Building [address] [place] [address] Phone: tel: fax: Referral ID Status Reason Start Date Expiration Date V isits Requested Visits Authorized [id number] Closed Specialty Services Required 10/29/2018 1 1 Encounter Details Date Type Department Care Team (Late st Contact Info) Description 05/12/2019 9:00 EDT Office Visit [facility] Medical Psychology [facility] [address] [place] [address] Amber Andersen, PhD [address] [address] Memory loss (Primary Dx); Depression, [...] Amber Menendez, PhD - 05/12/2019 0900 EDT Neuropsychological Evaluation Name: Elsa Lujan Age: 58 y.o. 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 Lujan is currently represented by senior trial attorney Jasen Stein for legal support of a [...] She completed a bachelor's degree from the [employer] in business administration and accounting. She recalls being a good student with no suspicion or formal diagnosis for a learning disability. She denies receiving special education resources or academic retention. Academic strengths were noted for mathematics with weaknesses for Serbian. 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 She has been on medical leave for the past 3 weeks. Managing workplace responsibilities has become more effortful as a result of memory loss, forgetfulness, and slowed information processing. PSYCHOSOCIAL HISTORY Ms. Lujan was born and raised in her [place] to her biological parents. 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 Her mother was at age 77 from [...] concerns for self-harm. She independently manages self-care, director hematology (shopping, cooking, cleaning), medications, and finances consistent with baseline. Medically he has observed greater recurrence of seizures (little ones) in the medical chemist with primarily a scratching motion which ends with a loud belch. He notes the most recent more significant seizure occurred in January 2019 while at a conference in [place] where she was dazed, confused, and able [...] of Premorbid Functioning (TOPF); WAIS-IV (select subtests); Scenic Naming Test; COWAT; [place] Verbal Learning Test-II (Standard Form); Bina Memory Scale-IV (Logical Memory I/II); Brief Visuospatial Memory Test-Revised (BVMT); Joanna Martinez Executive Function System (Color Word); [place] Making Test; [place] Card Sorting Task; Clock [...] She lost response set twice. On the [place] Making Test (B) her performance was low [...] workplace. Referrals for outpatientoccupational therapy at the can be made by contacting [phone]. ?? Emotional Support: Continued supportive counseling is [...] arise, this service can be contacted at [phone]. Billing Neurobehavioral Status Exam Total time= 76 minutes ([place] 64646 by neuropsychologist) Test Evaluation Services Total time= 149 minutes [place] 40529 and one unit(s) of 78981 by neuropsychologist) Test Administration and Scoring Total time= 69 minutes (one unit of 81282 and one unit(s) of 47270 by neuropsychologist) Total time= 238 minutes (one unit of 96952 and seven unit([place]) of 25807 by terminal worker) Amber Andersen, Ph.D. Psychologist-Doctorate documented in this encounter Plan of Treatment Not on file documented as of this encounter Visit Diagnoses Diagnosis Memory loss- Primary Depression, unspecified depression type Anxiety Anxiety state, unspecified documented in this encounter Care Teams Etl Informatica Developer Relationship Specialty Start Date End Date Aria Thompson MD PCP - General 12/03/17 06/26/24 documented as of this encounter
--- OUTSIDE RECORDS SUMMARY | 2024-09-12 00:56 | XMS_ITS | Encounter Summary ---
Author Organization [facility] Address [address] [place] [address] Care Team Providers Care Non Destructive Testing Specialist Name Role Phone Aria Thompson MD Primary Care Provider Reason for Referral * Consult (Routine/Next Available) - Specialty Report Received Specialty Diagnoses / Procedures Referred By Merari rosario Referred To Contact Neurology Diagnoses Seizure disorder ([facility]) Everette Boggs MD Phone: tel: fax: Nahum Hernandez MD Phone: tel: fax: Referral ID Status Reason Start Date Expiration Date Visits Requested Visits Authorized [id number] Specialty Report Received Second Opinion 12/05/2017 1 1 Question Answer Reason for Request: Patient with seizure history and in control of her seizure disorder requesting for second Neurology opinion from [facility]. Patient being worked up by Vascular Surgery for cyanotic finger after obtaining nerve damage to right arm after a fall. Comments Workman's Comp Case - Case #[id number], Injury Date: 09/27/16 Patients' previous Neurologist: Dr. Jameson Burgos in [place], [place]. Patient will call Dr. Burgos's office to have the office release her Neurology consult notes to [facility]. Reason for Visit * Reason Onset Date Comments Referral Request 12/05/2017 Encounter Details Date Type Department Care Team (Late st Contact Info) Description 12/05/2017 Orders Only Vascular Surgery and Endovascular Therapy - [address] [address] Everette Boggs MD [address] [facility], [address] [place] [phone] Seizure disorder ([facility]) (Primary Dx) Social History Tobacco Use [...] Visit Diagnoses Diagnosis Seizure disorder ([facility])- Primary Unspecified epilepsy without mention of intractable epilepsy documented in this encounter Care Teams Non Destructive Testing Specialist Relationship Specialty Start Date End Date Aria Thompson MD PCP - General 12/03/17 06/26/24 documented as of this encounter
--- OUTSIDE RECORDS SUMMARY | 2024-09-12 00:56 | XMS_ITS | Encounter Summary ---
Author Organization [facility] Address [address] [place] [address] Care Team Providers Care Aircraft Machinist Helper Name Role Phone Aria Thompson MD Primary Care Provider Encounter Details Date Type Department Care Team (Late st Contact Info) Description 02/18/2018 6:45 EDT - 02/18/2018 23:59 EDT Hospital Encounter [address] [address] Marleny Quezada MD [address] [place] [phone] Everette Boggs MD [address] [facility], [address] [place] [phone] Discharge Disposition: Auto Discharge Social History Tobacco [...] on filedocumented in this encounter Care Teams Aircraft Machinist Helper Relationship Specialty Start Date End Date Aria Thompson MD PCP - General 12/03/17 06/26/24 documented as of this encounter
--- OUTSIDE RECORDS SUMMARY | 2024-09-12 00:56 | XMS_ITS | Encounter Summary ---
Author Organization [facility] Address [address] [place] [address] Care Team Providers Care Oracle Soa Architect Name Role Phone Aria Thompson MD Primary Care Provider Encounter Details Date Type Department Care Team (Late st Contact Info) Description 03/27/2019 Results Only Imaging [facility] [phone] Sarah Lopez MD Social History Tobacco Use [...] on filedocumented in this encounter Care Teams Oracle Soa Architect Relationship Specialty Start Date End Date Aria Thompson MD PCP - General 12/03/17 06/26/24 documented as of this encounter
--- OUTSIDE RECORDS SUMMARY | 2024-09-12 00:56 | XMS_ITS | Encounter Summary ---
Author Organization [facility] Address [address] [place] [address] Care Team Providers Care Fly Winder Name Role Phone Aria Thompson MD Primary Care Provider Reason for Visit * Reason Comments New Patient Visit * Consult (Routine) - Specialty Report Received Specialty Diagnoses / Procedures [facility] To Contact Osteoporosis Diagnoses Osteoporosis, unspecified osteoporosis type, unspecified pathological fracture presence Marleny Quezada MD Phone: tel: fax: [facility] Osteoporosis [address] [address] Phone: tel: fax: Referral ID Status Reason Start Date Expiration Date Visits Requested Visits Authorized [id number] Specialty Report Received Specialty Services Required 10/29/2018 1 1 Encounter Details Date Type Department Care Team (Late st Contact Info) Description 03/27/2019 15:00 EDT Office Visit [facility] Osteoporosis [address] [phone] Amber Mendosa, DO [address] [place] [address] [place] [phone] Other osteoporosis without current pathological fracture [...] outweighs these rare risks. Any medication, including [id number] medications like aspirin, have potential side effects [...] from fractures. Amber Mendosa DO, is an ip paralegal and director of the Metabolic Bone Program at the [facility]. documented in this encounter Progress Notes * [...] 0.47 - 4.68 uIU/ml 03/27/2019 17:33 EDT [facility] Comment: The results of this assay can be falsely lowered due to the consumption of Biotin. Blood specimen (specimen) BLOOD SPECIMEN / Unknown 03/27/2019 16:02 EDT 03/27/2019 16:32 EDT us Amber Mendosa DO CHEMISTRY & BLOOD GAS ORDERA BLES Final Result [facility] [address] [place] [address] * VITAMIN D (25,OH) (03/27/2019 16:02 EDT) 25OH Vitamin D Tot 53.2 30 - 100 ng/ml 03/28/2019 12:45 [facility] Comment: Reference Range: Deficient = <10 ng/ml Insufficient = 10-30 ng/ml Sufficient = 30-100 ng/ml Toxic = >100 ng/ml Blood specimen (specimen) BLOOD SPECIMEN / Unknown 03/27/2019 16:02 EDT 03/27/2019 16:32 EDT us Amber Mendosa DO CHEMISTRY & BLOOD GAS ORDERA BLES Final Result [facility] [address] [place] [address] * (ABNORMAL) COMPLETE BLOOD COUNT AND DIFFERENTIAL (03/27/2019 16:02 EDT) WBC 5.21 4.0 - 12.4 K/cmm 03/27/2019 16:40 [facility] RBC 4.00 3.86 - 5.04 M/cmm 03/27/2019 16:40 [facility] Hemoglobin 12.4 11.6 - 15.2 gm/dl 03/27/2019 16:40 [facility] HCT 35.7 34.9 - 44.4 % 03/27/2019 16:40 [facility] MCV 89 81 - 98 fl 03/27/2019 16:40 [facility] MCH 31.0 26.7 - 33.3 pg 03/27/2019 16:40 [facility] MCHC 34.7 32.1 - 35.9 gm/dl 03/27/2019 16:40 [facility] RDW-CV 13.7 <14.7 % 03/27/2019 16:40 [facility] RDW-SD 45.2 <50.4 fl 03/27/2019 16:40 [facility] PLT 392(H) 141 - 377 K/cmm 03/27/2019 16:40 [facility] MPV 8.7(L) 9.5 - 12.7 fl 03/27/2019 16:40 [facility] % Neutrophils 42.6 % 03/27/2019 16:40 [facility] % Lymphocytes 38.4 % 03/27/2019 16:40 [facility] % Monocytes 13.6 % 03/27/2019 16:40 [facility] % Eosinophils 3.3 % 03/27/2019 16:40 [facility] % Basophils 1.7 % 03/27/2019 16:40 [facility] % Immature Grans 0.4 % 03/27/2019 16:40 [facility] ABS Neutrophils 2.22 2.20 - 8.85 K/cmm 03/27/2019 16:40 [facility] ABS Lymphs 2.00 1.09 - 3.30 K/cmm 03/27/2019 16:40 [facility] ABS Monocytes 0.71 0.1 - 0.8 K/cmm 03/27/2019 16:40 [facility] ABS Eosinophils 0.17 0.03 - 0.61 K/cmm 03/27/2019 16:40 [facility] ABS Basophils 0.09 0.01 - 0.11 K/cmm 03/27/2019 16:40 [facility] ABS Immature Grans 0.02 0 - 0.06 K/cmm 03/27/2019 16:40 [facility] Type of Diff: Automated 03/27/2019 16:40 [facility] Blood specimen (specimen) BLOOD SPECIMEN / Unknown 03/27/2019 16:02 EDT 03/27/2019 16:32 EDT us Amber Mendosa DO PACKAGES & DNA PROBE ORDERAB LES Final Result [facility] [address] [place] [address] * PHOSPHORUS (03/27/2019 16:02 EDT) Phosphorus 4.2 2.5 - 4.5 mg/dl 03/27/2019 17:02 EDT [facility] Blood specimen (specimen) BLOOD SPECIMEN / Unknown 03/27/2019 16:02 EDT 03/27/2019 16:32 EDT us Amber Mendosa DO CHEMISTRY & BLOOD GAS ORDERA BLES Final Result Performing Organization Address [facility] Co de Phone Number [facility] [address] [place] [address] * PTH INTACT (03/27/2019 16:02 EDT) PTH 48 19 - 88 pg/ml 03/28/2019 10:09 [facility] Comment:Reference range base d on normal calcium level. Blood specimen (specimen) BLOOD SPECIMEN / Unknown 03/27/2019 16:02 EDT 03/27/2019 16:32 EDT us Amber Mendosa DO CHEMISTRY & BLOOD GAS ORDERA BLES Final Result Performing Organization Address [facility] de Phone Number [facility] [address] [place] [address] * (ABNORMAL) COMPREHENSIVE METABOLIC PANEL (CMP) (03/27/2019 16:02 EDT) Potassium 4.2 3.5 - 5.0 mEq/L 03/27/2019 17:02 [facility] Sodium 128(L) 136 - 145 mEq/L 03/27/2019 17:02 [facility] Chloride 91(L) 96 - 110 mEq/L 03/27/2019 17:02 [facility] CO2 28 22 - 32 mEq/L 03/27/2019 17:02 [facility] Total Alkaline Phosphatase 87 38 - 126 U/L 03/27/2019 17:02 [facility] Bilirubin, Total <0.5 <1.4 mg/dl 03/27/20 19 17:02 [facility] AST 22 15 - 46 U/L 03/27/2019 17:02 [facility] ALT 24 <53 U/L 03/27/2019 17:02 [facility] Albumin 4.7 3.4 - 4.9 g/dl 03/27/2019 17:02 [facility] Total Protein 7.0 6.3 - 8.2 g/dl 03/27/2019 17:02 [facility] Creatinine 0.59 0.52 - 1.04 mg/dl 03/27/2019 17:02 [facility] GFR, Calculated 100 >60 ml/min/1.7 3m2 03/27/2019 17:02 [facility] Comment: eGFR calculated using CKD-EPI equation for non Americans. Multiply eGFR by 1.16 for Americans. BUN 11 10 - 26 mg/dl 03/27/2019 17:02 [facility] Calcium 9.7 8.5 - 10.5 mg/dl 03/27/2019 17:02 [facility] Calculated Calcium 9.1 8.5 - 10.5 mg/dl 03/27/2019 17:02 [facility] Glucose, Serum 96 70 - 100 mg/dl 03/27/2019 17:02 [facility] Fasting? No 03/27/2019 15:59 [facility] Blood specimen (specimen) BLOOD SPECIMEN / Unknown 03/27/2019 16:02 EDT 03/27/2019 16:32 EDT us Amber Mendosa DO CHEMISTRY & BLOOD GAS ORDERA BLES Final Result [facility] [address] [place] [address] documented in this encounter Visit Diagnoses Diagnosis Other osteoporosis without current pathological fracture- Primary documented in this encounter Discontinued Medications Medication Sig Discontinue Reason Start Date End Da te lamoTRIgine (LAMICTAL) 100 mg tablet Take 100 mg by mouth 2 times daily. Therapy completed 03/27/2019 documented as of this encounter Care Teams Fly Winder Relationship Specialty Start Date End Date Aria Thompson MD PCP - General 12/03/17 06/26/24 documented as of this encounter
--- OUTSIDE RECORDS SUMMARY | 2024-09-12 00:56 | XMS_ITS | Encounter Summary ---
Author Organization [facility] Address [address] [place] [address] Care Team Providers Care Crematory Attendant Name Role Phone Aria Thompson MD Primary Care Provider Encounter Details Date Type Department Care Team (Late st Contact Info) Description 05/27/2018 9:45 EDT - 05/27/2018 23:59 EDT Hospital Encounter [facility] Neurophysiology - [facility] ([place] [address]) [address] [place] [address] Sarah Lopez MD [facility] Institute[facility] MD PhD [address] [facility] [place] [address] Discharge Disposition: Auto Discharge Social [...] 05/29/2018 13:4 9 EDT us Scan 2 Religious Healer PROCEDURE/MINOR SURGICAL OR DERABLES Final Result documented in this encounter Visit Diagnoses Not on filedocumented in this encounter Care Teams Crematory Attendant Relationship Specialty Start Date End Date Aria Thompson MD PCP - General 12/03/17 06/26/24 documented as of this encounter
--- OUTSIDE RECORDS SUMMARY | 2024-09-12 00:56 | XMS_ITS | Encounter Summary ---
Author Organization [facility] Address [address] [place] [address] Care Team Providers Care Reinsurance Analyst Name Role Phone Aria Thompson MD Primary Care Provider Reason for Visit * Reason Onset Date Comments Appointment Related 04/17/2018 Encounter Details Date Type Department Care Team (Late st Contact Info) Description 04/17/2018 Telephone [facility] Neurophysiology - [facility] ([place] [address]) [address] [place], [place] [id number] MD Renzo Appointment Related Social History Tobacco [...] - Cleo Corea - 04/17/2018 1009 EDT [facility] reminder of appointment 04/19/18, directions provided. documented in this encounter Plan of Treatment Not on file documented as of this encounter Visit Diagnoses Not on filedocumented in this encounter Care Teams Reinsurance Analyst Relationship Specialty Start Date End Date Aria Thompson MD PCP - General 12/03/17 06/26/24 documented as of this encounter
--- OUTSIDE RECORDS SUMMARY | 2024-09-12 00:56 | XMS_ITS | Encounter Summary ---
Author Organization [facility] Address [address] [place] [address] Care Team Providers Care Consumer Affairs Specialist Name Role Phone Bartolo Landon MD Primary Care Provider [phone] Aria Thompson MD Primary Care Provider Encounter Details Date Type Department Care Team (Late st Contact Info) Description 11/06/2012 Historical Results Only [facility] - Main [address] [address] [place] [address] [place] [address] Social History Tobacco Use Types [...] (11/06/2012) 11/06/2012 11/06/2012 14: 58 EDT Narrative [facility] - 11/12/2012 11:21 EDT ----- ------- Name: BRYSKYLA ? : [birth year] ?Age/Sex: 58/F ?Unit#: [id number] ? Loc: DI ?Status: REG CLI ?? Reg Date: 11/06/12 ? Pt.Phone Number: ? ----- ------- Specimen: [id number] ? STATUS: SOUT ?Spec Date:11/06/12 ? Physician Copies: ?Belen Mendosa MD ?? Tissues: A ?? THYROID FNA (LEFT) ? Trevor Mensah MD ?? CPT: 18595 ?? Units: ??1 ? [id number] ? 1 ? [id number] ? 1 ----- ------- ?? NON CARE TEAM ASSISTANT CYTOLOGY DIAGNOSIS Thyroid, left, ultrasound guided fine [...] Passes 1-4: Sparse follicular cells, mostly blood. ??([facility] 11/06/12) ?Additional passes obtained, not screened on site. ----- ------- ? SPECIMEN DESCRIPTION ? 30ml pink cytolyt, 1TP, 6 alc, 6 air Signed ____(signature on file)____ Keisha Garcia M.D. 11/12/12 By the signature above, the attending physician certifies that he/she has personally conducted a gross and/or microscopic examination of the described specimens and rendered or confirmed the above diagnosis. Test Performed by [facility], [address] [place] [address] [employer]: Keisha Garcia MD PHD ----- ------- us Belen Mendosa MD PATHOLOGY ORDERABLES Final Re sult [facility] documented in this encounter Visit Diagnoses Not on filedocumented in this encounter Care Teams Consumer Affairs Specialist Relationship Specialty Start Date End Date Bartolo Landon MD [address] [facility] [place] [phone] PCP - General 03/12/09 12/02/17 Aria Thompson MD [address] [place] [phone] PCP - General 12/03/17 06/26/24 documented as of this encounter
--- OUTSIDE RECORDS SUMMARY | 2024-09-12 00:56 | XMS_ITS | Encounter Summary ---
Author Organization [facility] Address [address] [place] [address] Care Team Providers Care Valance Cutter Name Role Phone Aria Thompson MD Primary Care Provider Reason for Visit * Reason Comments New Patient Visit Referred by Dr. Fior johnson vascular for 2nd opinon seizure disorder/work nerve injury Sep 2016 * Consult (Routine/Next Available) - Specialty Report Received Specialty Diagnoses / Procedures Referred By Merari rosario Referred To Contact Neurology Diagnoses Seizure disorder ([facility] Everette Boggs MD Phone: tel: fax: Nahum Hernandez MD Phone: tel: fax: Referral ID Status Reason Start Date Expiration Date Visits Requested Visits Authorized [id number] Specialty Report Received Second Opinion 12/05/2017 1 1 Encounter Details Date Type Department Care Team (Late st Contact Info) Description 01/28/2018 9:00 EDT Office Visit [facility] Neurology [facility] [address] [place], [place] [phone] Marleny Quezada MD [address] [place] [address] Seizures (HCC-CMS) (Primary Dx); Right [...] Quezada MD - 01/28/2018 0000 EDT [facility] NEUROLOGY CONSULTATION - 01/28/2018 CHIEF COMPLAINT: [...] Dr Burgos and had been seen at [facility] at the time. Currently on Trileptal [...] days. Went to the emergency room at [facility], then referred to Dr Boggs. His note [...] reflexes are symmetric throughout. No pathological reflexes. [id number], rapid alternating movements are intact. Romberg sign [...] - Marleny Quezada MD pn Dictation ID: [id number] cc: Everette Boggs MD, [facility] - Vascular Surgery [address] [place] [address] Aria Thompson MD, [place] [address] documented in this encounter Plan of Treatment [...] 03/27/2019 added in this encounter Care Teams Valance Cutter Relationship Specialty Start Date End Date Aria Thompson MD PCP - General 12/03/17 06/26/24 documented as of this encounter
--- OUTSIDE RECORDS SUMMARY | 2024-09-12 00:56 | XMS_ITS | Encounter Summary ---
Author Organization [facility] Address [address] [place] [address] Care Team Providers Care Capacitor Inspector Name Role Phone Bartolo Landon MD Primary Care Provider [phone] Encounter Details Date Type Department Care Team (Latest Contact Info) Description 05/28/2009 11:09 EDT - 05/28/2009 23:59 EDT Hospital Encounter [address] [address] Pavan Zurita MD Discharge Disposition: Home or [...] on filedocumented in this encounter Care Teams Capacitor Inspector Relationship Specialty Start Date End Date Bartolo Landon MD [address] [place] [address] PCP - General 03/12/09 12/02/17 documented as of this encounter
--- OUTSIDE RECORDS SUMMARY | 2024-09-12 00:56 | XMS_ITS | Encounter Summary ---
Author Organization [facility] Address [address] [place] [address] Care Team Providers Care Grey Goods Tester Name Role Phone Aria Thompson MD Primary Care Provider Reason for Visit * Reason Onset Date Comments Appointment Related 05/27/2019 Encounter Details Date Type Department Care Team (Late st Contact Info) Description 05/27/[address] [facility] Speech & Language [address] [place] [address] Macie Goodson, [address] [place] [address] Appointment Related Social History Tobacco [...] left my direct line. Chantelle Steinberg Therapy Certification And Selection Specialist documented in this encounter Plan of Treatment Not on file documented as of this encounter Visit Diagnoses Not on filedocumented in this encounter Care Teams Grey Goods Tester Relationship Specialty Start Date End Date Aria Thompson MD PCP - General 12/03/17 06/26/24 documented as of this encounter
--- OUTSIDE RECORDS SUMMARY | 2024-09-12 00:56 | XMS_ITS | Encounter Summary ---
Author Organization [facility] Address [address] [place] [address] Care Team Providers Care Poured Pipe Maker Name Role Phone Bartolo Landon MD Primary Care Provider [phone] Encounter Details Date Type Department Care Team (Late st Contact Info) Description 05/25/2015 Results Only [facility] [phone] Raeann Thompson MD [address] [place] [address] Social History Tobacco Use Types [...] ? SKYLA LONDONO ? Accession #: ? [id number] ? : ? 1960 (Age: 54) ??F [...] types 16,18,31,33,35, 39,45,51,52,56,58, 59,66, and 68 by product development intern mediated amplification. Comments Document reviewed and electronically signed by: ? System Interface ? Report date: 06/03/2015 By the signature above, the attending physician certifies that he/she has personally conducted a gross and/or microscopic examination of the described specimens and rendered or confirmed the above diagnosis. End of Report [facility] 05/25/2015 05/26/2015 us Raeann Thompson MD PATHOLOGY ORDERABLES Fi nal Result [facility] [address] [place] [address] documented in this encounter Visit Diagnoses Not on filedocumented in this encounter Care Teams Poured Pipe Maker Relationship Specialty Start Date End Date Bartolo Landon MD [address] [place] [phone] PCP - General 03/12/09 12/02/17 documented as of this encounter
--- OUTSIDE RECORDS SUMMARY | 2024-09-12 00:56 | XMS_ITS | Encounter Summary ---
Author Organization [facility] Address [address] [place] [address] Care Team Providers Care Drum Carrier Name Role Phone Aria Thompson MD Primary Care Provider Reason for Visit * Reason Onset Date Comments Appointment Related 01/16/2018 Encounter Details Date Type Department Care Team (Late st Contact Info) Description 01/16/2018 Telephone Vascular Surgery and Endovascular Therapy - [address] [phone] Everette Boggs MD [address] [facility], [address] [place] [address] Appointment Related Social History Tobacco [...] on filedocumented in this encounter Care Teams Drum Carrier Relationship Specialty Start Date End Date Aria Thompson MD PCP - General 12/03/17 06/26/24 documented as of this encounter
--- OUTSIDE RECORDS SUMMARY | 2024-09-12 00:56 | XMS_ITS | Encounter Summary ---
Author Organization [facility] Address [address] [place] [address] Care Team Providers Care Drier Helper Name Role Phone Aria Thompson MD Primary Care Provider Reason for Visit * Reason Onset Date Comments Other 02/06/2018 Encounter Details Date Type Department Care Team (Late st Contact Info) Description 02/06/[address] [facility] Neurology [facility] [address] [place] [address] Marleny Quezada MD [address] [place] [address] Other Social History Tobacco Use [...] - 02/06/2018 1144 EDT Vascular Surgery at [facility] called looking for your last note on this patient. documented in this encounter Plan of Treatment Not on file documented as of this encounter Visit Diagnoses Not on filedocumented in this encounter Care Teams Drier Helper Relationship Specialty Start Date End Date Aria Thompson MD PCP - General 12/03/17 06/26/24 documented as of this encounter
--- OUTSIDE RECORDS SUMMARY | 2024-09-12 00:56 | XMS_ITS | Encounter Summary ---
Author Organization [facility] Address [address] [place] [address] Care Team Providers Care Medical Referral Coordinator Name Role Phone Aria Thompson MD Primary Care Provider Reason for Visit * Reason Onset Date Comments Medications Refill 01/06/2019 Encounter Details Date Type Department Care Team (Late st Contact Info) Description 01/06/2019 Refill [facility] Neurology [facility] [address] [place], [place] [phone] Marleny Quezada MD [address] [place] [phone] Medications Refill Social History Tobacco Use Types [...] filedocumented in this encounter Care Teams Medical Referral Coordinator Relationship Specialty Start Date End Date Aria Thompson MD PCP - General 12/03/17 06/26/24 documented as of this encounter
--- OUTSIDE RECORDS SUMMARY | 2024-09-12 00:56 | XMS_ITS | Encounter Summary ---
Author Organization [facility] Address [address] [place] [address] Care Team Providers Care Bench Examiner Name Role Phone Aria Thompson MD Primary Care Provider Reason for Visit * Reason Onset Date Comments Appointment Related 01/14/2018 Encounter Details Date Type Department Care Team (Late st Contact Info) Description 01/14/2018 Telephone Vascular Surgery and Endovascular Therapy - [address] [phone] Everette Boggs MD [address] [facility], [address] [place] [address] Appointment Related Social History Tobacco [...] on filedocumented in this encounter Care Teams Bench Examiner Relationship Specialty Start Date End Date Aria Thompson MD PCP - General 12/03/17 06/26/24 documented as of this encounter
--- OUTSIDE RECORDS SUMMARY | 2024-09-12 00:56 | XMS_ITS | Encounter Summary ---
Author Organization [facility] Address [address] [place] [address] Care Team Providers Care Farm Equipment Mechanic Apprentice Name Role Phone Aria Thompson MD Primary Care Provider Encounter Details Date Type Department Care Team (Late st Contact Info) Description 03/27/2019 Phlebotomy Only [address] [address] Freight Elevator Erector, Outpatient Other osteoporosis without current pathological fracture [...] 100 >60 ml/min/1.7 3m2 03/27/2019 17:02 EDT [facility] Comment: eGFR calculated using CKD-EPI equation for non Americans. Multiply eGFR by 1.16 for Americans. BUN 11 10 - 26 mg/dl 03/27/2019 17:02 T [facility] Calcium 9.7 8.5 - 10.5 mg/dl 03/27/2019 17:02 [facility] Calculated Calcium 9.1 8.5 - 10.5 mg/dl 03/27/2019 17:02 T [facility] Glucose, Serum 96 70 - 100 mg/dl 03/27/2019 17:02 [facility] Fasting? No 03/27/2019 15:59 [facility] Blood specimen (specimen) BLOOD SPECIMEN / Unknown 03/27/2019 16:02 EDT 03/27/2019 16:32 EDT Amber Mendosa DO CHEMISTRY & BLOOD GAS ORDERA BLES Final Result Performing Organization Address City/[facility]/ZIP Co de Phone Number [facility] [address] [place] [address] * PTH INTACT (03/27/2019 16:02 EDT) PTH 48 19 - 88 pg/ml 03/28/2019 10:09 T [facility] Comment:Reference range base d on normal calcium level. Blood specimen (specimen) BLOOD SPECIMEN / Unknown 03/27/2019 16:02 EDT 03/27/2019 16:32 EDT Amber Mendosa DO CHEMISTRY & BLOOD GAS ORDERA BLES Final Result [facility] [address] [place] [address] * PHOSPHORUS (03/27/2019 16:02 EDT) Phosphorus 4.2 2.5 - 4.5 mg/dl 03/27/2019 17:02 EDT [facility] Blood specimen (specimen) BLOOD SPECIMEN / Unknown 03/27/2019 16:02 EDT 03/27/2019 16:32 EDT us Amber Mendosa DO CHEMISTRY & BLOOD GAS ORDERA BLES Final Result [facility] [address] [place] [address] * (ABNORMAL) COMPLETE BLOOD COUNT AND DIFFERENTIAL [...] % Eosinophils 3.3 % 03/27/2019 16:40 EDT [facility] % Basophils 1.7 % 03/27/2019 16:40 [facility] % Immature Grans 0.4 % 03/27/2019 16:40 [facility] ABS Neutrophils 2.22 2.20 - 8.85 K/cmm 03/27/2019 16:40 [facility] ABS Lymphs 2.00 1.09 - 3.30 K/cmm 03/27/2019 16:40 EDT [facility] ABS Monocytes 0.71 0.1 - 0.8 K/cmm 03/27/2019 16:40 [facility] ABS Eosinophils 0.17 0.03 - 0.61 K/cmm 03/27/2019 16:40 T [facility] ABS Basophils 0.09 0.01 [...] & DNA PROBE ORDERAB LES Final Result [facility] [address] [address] * VITAMIN D (25,OH) (03/27/2019 16:02 EDT) 25OH Vitamin D Tot 53.2 30 - 100 ng/ml 03/28/2019 12:45 EDT [facility] Comment: Reference Range: Deficient = <10 ng/ml Insufficient = 10-30 ng/ml Sufficient = 30-100 ng/ml Toxic = >100 ng/ml Blood specimen (specimen) BLOOD SPECIMEN / Unknown 03/27/2019 16:02 EDT 03/27/2019 16:32 EDT us Amber Mendosa DO CHEMISTRY & BLOOD GAS ORDERA BLES Final Result Performing Organization Address [facility] Co de Phone Number [facility] [address] [place] [address] * TSH (03/27/2019 16:02 EDT) TSH 2.78 0.47 - 4.68 uIU/ml 03/27/2019 17:33 EDT [facility] Comment: The results of this assay can be falsely lowered due to the consumption of Biotin. Blood specimen (specimen) BLOOD SPECIMEN / Unknown 03/27/2019 16:02 EDT 03/27/2019 16:32 EDT us Amber Mendosa DO CHEMISTRY & BLOOD GAS ORDERA BLES Final Result Performing Organization Address [facility] de Phone Number [facility] [address] [place] [address] documented in this encounter Visit Diagnoses Diagnosis Other osteoporosis without current pathological fracture- Primary documented in this encounter Care Teams Farm Equipment Mechanic Apprentice Relationship Specialty Start Date End Date Aria Thompson MD PCP - General 12/03/17 06/26/24 documented as of this encounter
--- OUTSIDE RECORDS SUMMARY | 2024-09-12 00:56 | XMS_ITS | Encounter Summary ---
Author Organization [facility] Address [address] [place] [address] Care Team Providers Care Electronic Commerce Specialist Name Role Phone Aria Thompson MD Primary Care Provider Encounter Details Date Type Department Care Team (Late st Contact Info) Description 02/08/2018 Results Only Imaging [facility] Vascular Surgery - [place] [address] [place] [address] Everette Boggs MD [address] [place] [address] [address] [place] [address] Social History Tobacco Use Types [...] CONTRAST ??02/18/2018 9:30 AM Signs and Symptoms/Comments: ??R23.2-Ewmzieqy-HDR-10; CTA chest and bilateral upper extremity for [...] CONTRAST 02/18/2018 9:30 AM Signs and Symptoms/Comments: R23.8-Uqmiapwa-NLF-10; CTA chest and bilateral upper extremity for [...] CONTRAST ??02/18/2018 9:30 AM Signs and Symptoms/Comments: ??R23.6-Iocbvqqg-IQR-10; CTA chest and bilateral upper extremity for [...] CONTRAST 02/18/2018 9:30 AM Signs and Symptoms/Comments: R23.0-Hwsxtehu-XDE-10; CTA chest and bilateral upper extremity for [...] on filedocumented in this encounter Care Teams Electronic Commerce Specialist Relationship Specialty Start Date End Date Aria Thompson MD PCP - General 12/03/17 06/26/24 documented as of this encounter
--- OUTSIDE RECORDS SUMMARY | 2024-09-12 00:56 | XMS_ITS | Encounter Summary ---
Author Organization [facility] Address [address] [place] [address] Care Team Providers Care Well Puller Name Role Phone Aria Thompson MD Primary Care Provider Reason for Visit * Reason Onset Date Comments Appointment Related 02/28/2018 Encounter Details Date Type Department Care Team (Late st Contact Info) Description 02/28/2018 Telephone [facility] Neurophysiology - [facility] ([address]) [address] [place], [place] [id number] Cnl, Eeg Schedule, Appointment Related Social History [...] Perkins - 02/28/2018 1002 EDT Lois from [facility] called stating that the EEG Standard scheduled 03/21/18 was sent as a 72 hour ambulatory EEG. documented in this encounter Plan of Treatment Not on file documented as of this encounter Visit Diagnoses Not on filedocumented in this encounter Care Teams Well Puller Relationship Specialty Start Date End Date Aria Thompson MD PCP - General 12/03/17 06/26/24 documented as of this encounter
--- OUTSIDE RECORDS SUMMARY | 2024-09-12 00:56 | XMS_ITS | Encounter Summary ---
Author Organization [facility] Address [address] [place] [address] Care Team Providers Care Hat Braider Name Role Phone Aria Thompson MD Primary Care Provider Reason for Visit * Reason Onset Date Comments Appointment Related 11/25/2018 Encounter Details Date Type Department Care Team (Late st Contact Info) Description 11/25/2018 Telephone [facility] Neurology - [place] [address] [place] [address] Marleny Quezada MD [address] [place] [address] Appointment Related Social History Tobacco [...] Summer Bland - 11/25/2018 1116 EDT Contacted [place] [facility] and they are contacting pt to [...] on filedocumented in this encounter Care Teams Hat Braider Relationship Specialty Start Date End Date Aria Thompson MD PCP - General 12/03/17 06/26/24 documented as of this encounter
--- OUTSIDE RECORDS SUMMARY | 2024-09-12 00:56 | XMS_ITS | Encounter Summary ---
Author Organization [facility] Address [address] [place] [address] Care Team Providers Care Garage Door Hanger Name Role Phone Unavailable Primary Care Provider Unavailabl e Encounter Details Date Type Department Care Team (Latest Contact Info) Description 03/10/2009 9:55 EDT - 03/10/2009 9:56 EDT Hospital Encounter [facility] - Other [address] [place] [address] Pavan Zurita MD Discharge Disposition: Home or [...] SKYLA LONDONO L ? Accession #: ? [id number] ? : ? 1960 (Age: 48) ??F [...] Description: ? Received in [employer]'s fixative labelled Lenoir, Skyla and right colon ?? are multiple, corea-yellow, irregular soft tissue fragments ranging in size from ?? 1.0 x 0.4 x 0.2 cm to 0.3 x 0.2 x 0.2 cm. ??Submitted entirely as (A1) and (A2). ? Received in [facility]'s fixative labelled Lenoir, Skyla and transverse colon ?? are multiple yellow-corea, irregular soft tissue fragments ranging in size from ?? 0.7 x 0.4 x 0.2 cm to 0.2 x 0.2 x 0.2 cm, submitted entirely as (B1) and (B2). ? Received in [employer]'s fixative labelled Tai, Skyla and left colon are ? three yellow-corea, irregular soft tissue fragments ranging in size from 0.7 x 0.3 x 0.2 cm to 0.6 x 0.4 x 0.2 cm, submitted entirely as (C). ? [facility] fix[facility] labelled Tai, Skyla and [...] ORDERABLES Final Resul t [facility] [address] [place] [address] documented in this encounter Visit Diagnoses Not on filedocumented in this encounter
--- OUTSIDE RECORDS SUMMARY | 2024-09-12 00:56 | XMS_ITS | Encounter Summary ---
Author Organization [facility] Address [address] [place] [address] Care Team Providers Care Web Content Coordinator Name Role Phone Aria Thompson MD Primary Care Provider Encounter Details Date Type Department Care Team (Late st Contact Info) Description 05/25/2018 8:40 EDT - 05/25/2018 23:59 EDT Hospital Encounter [facility] Neurophysiology - [facility] ([place] [address]) [address] [place] [address] Sarah Lopez MD [facility] [address] [facility]. [address] [place] [address] Discharge Disposition: Auto Discharge Social [...] on filedocumented in this encounter Care Teams Web Content Coordinator Relationship Specialty Start Date End Date Aria Thompson MD PCP - General 12/03/17 06/26/24 documented as of this encounter
--- OUTSIDE RECORDS SUMMARY | 2024-09-12 00:56 | XMS_ITS | Encounter Summary ---
Author Organization [facility] Address [address] [place] [address] Care Team Providers Care Professional Soccer Player Name Role Phone Unavailable Primary Care Provider Unavailabl e Encounter Details Date Type Department Care Team (Latest Contact Info) Description 07/04/2005 18:38 EST Hospital Encounter [facility] - Other [address] [place] [address] Mandi Sawyer, KTAE [address] [place] [phone] Discharge Disposition: Home or Self Care [...]
--- OUTSIDE RECORDS SUMMARY | 2024-09-12 00:56 | XMS_ITS | Encounter Summary ---
Author Organization [facility] Address [address] [place] [address] Care Team Providers Care Pipeline Maintenance Supervisor Name Role Phone Bartolo Landon MD Primary Care Provider [phone] Aria Thompson MD Primary Care Provider Encounter Details Date Type Department Care Team (Late st Contact Info) Description 01/01/2017 Historical Results Only [facility] Radiology Results [address] [place] [address] [place] [address] [place] [address] Social History Tobacco Use Types [...] MD ? CC: ? Transcribed Date/Time: 01/01/2017 (3318) ? Fire Alarm Repairer: ? Printed Date/Time: 02/10/2019 (2938) ? PAGE 1 ? Signed Report ? Procedure Note Idris Garza MD - 07/02/2019 EXAM: ULTRASOUND/FINE NEEDLE ASPIRATION O EX. D/ (1343) CLINICAL INFORMATION: E04.2 NONTOXIC MULTINODULAR GOITER Procedure: Ultrasound-guided thyroid biopsy. Technique: Ultrasound imaging was provided to Dr. Belen Mendosa. REPORT SIGNED IN OTHER VENDOR SYSTEM 01/01/2017 Reported By: Idris Garza MD CC: Transcribed Date/Time: 01/01/2017 (0447) Fire Alarm Repairer: Printed Date/Time: 02/10/2019 (9404) PAGE 1 Signed Report Belen Mendosa MD [facility] ORDERABLES Final Resul t * CYTOLOGY (NON-GYNECOLOGIC INCLUDING FLUIDS AND FINE NEEDLE ASPIRATION)- ORDER ONLY (01/01/2017) 01/01/2017 01/01/2017 14: 29 EDT Narrative [facility] - 01/02/2017 15:37 EDT ----- ------- Name: SKYLA LONDONO ? : 56 ?Age/Sex: 58/F ?Unit#: [id number] ? Loc: DI ?Status: REG CLI ?? Reg Date: 01/01/17 ? Pt.Phone Number: ? ----- ------- Specimen: [id number] ? STATUS: SOUT ?Spec Date:01/01/17 ? Physician Copies: ?Belen Mendosa MD ?? Tissues: A ?? THYROID FNA (LEFT) ? Trevor Mensah MD ?? CPT: 89196 ?? Units: ??1 ? [id number] ? 1 ----- ------- ?? NON STORE ADMINISTRATIVE ASSISTANT CYTOLOGY DIAGNOSIS THYROID, LEFT, ULTRASOUND GUIDED FINE [...] confirmed the above diagnosis. Test Performed by [facility], [address] [place] [address] Noodle Catalyst Maker: Keisha Garcia MD PHD ----- ------- Belen Mendosa MD PATHOLOGY ORDERABLES Final Re sult [facility] documented in this encounter Visit Diagnoses Not on filedocumented in this encounter Care Teams Pipeline Maintenance Supervisor Relationship Specialty Start Date End Date Bartolo Landon MD [address] [place] [phone] PCP - General 03/12/09 12/02/17 Aria Thompson MD [address] [place] [phone] PCP - General 12/03/17 06/26/24 documented as of this encounter
--- OUTSIDE RECORDS SUMMARY | 2024-09-12 00:56 | XMS_ITS | Encounter Summary ---
Author Organization [facility] Address [address] [place] [address] Care Team Providers Care Structural Steel Erection Supervisor Name Role Phone Aria Thompson MD Primary Care Provider Reason for Visit * Reason Comments Follow-up CTA first Encounter Details Date Type Department Care Team (Late st Contact Info) Description 02/18/2018 9:45 EDT Office Visit Vascular Surgery and Endovascular Therapy - [address] [phone] Everette Boggs MD [address] [facility], [address] [place] [address] Cyanosis of fingertip (Primary Dx) [...] Boggs MD - 02/18/[address] [facility] VASCULAR SURGERY CONSULTATION - 02/18/2018 SUBJECTIVE: [...] - Everette Boggs MD cn Dictation ID: [id number] documented in this encounter Plan of Treatment Not on file documented as of this encounter Visit Diagnoses Diagnosis Cyanosis of fingertip- Primary Cyanosis documented in this encounter Care Teams Structural Steel Erection Supervisor Relationship Specialty Start Date End Date Aria Thompson MD PCP - General 12/03/17 06/26/24 documented as of this encounter
--- OUTSIDE RECORDS SUMMARY | 2024-09-12 00:56 | XMS_ITS | Encounter Summary ---
Author Organization [facility] Address [address] [place] [address] Care Team Providers Care Roto Rooter Operator Name Role Phone Aria Thompson MD Primary Care Provider Reason for Visit * Reason Onset Date Comments Appointment Related 06/04/2019 Encounter Details Date Type Department Care Team (Late st Contact Info) Description 06/04/2019 Telephone [facility] Speech & Language [address] [place] [address] Macie Goodson, ROBE [address] [place] [address] Appointment Related Social History Tobacco [...] Telephone Encounter - Chantelle Steinberg - 06/04/2019 9987 EDT Spoke with Yancy again, Elsa asked that we leave a phone number, that she remembers that we called previously and will be calling to schedule. I left my direct line to schedule an ICC. Chantelle Steinberg Therapy Candy Dipper documented in this encounter Plan of Treatment Not on file documented as of this encounter Visit Diagnoses Not on filedocumented in this encounter Care Teams Roto Rooter Operator Relationship Specialty Start Date End Date Aria Thompson MD PCP - General 12/03/17 06/26/24 documented as of this encounter
--- OUTSIDE RECORDS SUMMARY | 2024-09-12 00:56 | XMS_ITS | Encounter Summary ---
Author Organization [facility] Address [address] [place] [address] Care Team Providers Care Project Management Professional Name Role Phone Bartolo Landon MD Primary Care Provider [phone] Encounter Details Date Type Department Care Team (Late st Contact Info) Description 08/31/2004 Results Only [facility] - [place] conversion [address] [place] [address] Sarah Lopez MD Social History Tobacco Use [...] 20:4 2 EST 09/01/2004 21:27 EST us Sarah Pan MD CHEMISTRY & BLOOD GAS ORDERABLES Final Result [facility] [address] [place] [address] documented in this encounter Visit Diagnoses Not on filedocumented in this encounter Care Teams Project Management Professional Relationship Specialty Start Date End Date Bartolo Landon MD [address] [facility] [place] [phone] PCP - General 03/12/09 12/02/17 documented as of this encounter
--- OUTSIDE RECORDS SUMMARY | 2024-09-12 00:56 | XMS_ITS | Encounter Summary ---
Author Organization [facility] Address [address] [place] [address] Care Team Providers Care Basket Bottom Machine Operator Name Role Phone Aria Thompson MD Primary Care Provider Reason for Visit * Office Procedure (Routine) - Specialty Report Received Specialty Diagnoses / Procedures Referred By Merari rosario Referred To Contact Neurology Diagnoses Right arm pain Procedures ELECTRODIAGNOTICS: EMG/NERVE CONDUCTION STUDY Marleny Quezada MD Phone: tel: fax: [facility] Neurophysiology [facility] ([address]) [address] [place] [address] Phone: tel: fax: Referral ID Status Reason Start Date Expiration Date V isits Requested Visits Authorized [id number] Specialty Report Received 01/28/2018 1 1 Encounter Details Date Type Department Care Team (Latest Contact Info) Description 05/24/2018 8:03 EDT - 05/24/2018 23:59 EDT Hospital Encounter [facility] Neurophysiology [facility] ([address]) [address] [place], [place] [address] Shilo Serra MD [address] [place] [address], [address] [place] [address] Seizures ([facility]) [...] * Idris Hdez MD PhD - 05/24/2018 5311 EDTProcedure(s): AMBULATORY EEG- TRANSCRIBED ORDER [facility] Name: Elsa Lujan Clinical Neurophysiology Laboratory [address] [place] [address] : 1960 [place], [place] Date: 05/24/2018 Ambulatory Digital EEG Monitoring [...] Idris Hdez MD PHD ABPN Certified, Neurology [facility] Clinical Neurophysiology * Idris Hdez MD PhD - 05/24/2018 7772 EDTProcedure(s): AMBULATORY EEG- TRANSCRIBED ORDER [facility] Name: Elsa Lujan Clinical Neurophysiology Laboratory [address] [facility] : 1960 [place], [place] Date: 05/24/2018 Ambulatory Digital EEG Monitoring [...] * Idris Hdez MD PhD - 05/24/2018 6438 EDTProcedure(s): AMBULATORY EEG- TRANSCRIBED ORDER [facility] Name: Elsa Lujan Clinical Neurophysiology Laboratory [address] [place] [address] : 1960 [place], [place] Date: 05/24/2018 Ambulatory Digital EEG Monitoring [...] the original note were not included. [facility] Name: Elsa Lujan Clinical Neurophysiology Laboratory [address] : 1960 [place], [place] Date: 05/24/2018 Electroencephalogram Report Referring Physician: [...] specifically support this diagnosis. Rodrick Muse MD [facility] Certified, Neurology and Clinical Neurophysiology 14:50 05/24/2018 * Shilo Serra MD - 05/24/2018 1301 EDTProcedure(s): EMG/NERVE CONDUCTION STUDY Nerve Conduction and Electromyography Report History: Elsa Lujan is a 57 y.o. female who presents to EMG for evaluation of right arm pain. She reports that on September 27 2016, she had fallen at a gas station called [employer]. She slipped on a pile of water [...] any questions. Yours sincerely, Sandy Cee MD [facility] Neuromuscular fellow physician Attestation statement: I personally reviewed the tracings/ data and the reviewed the resident/ fellow's interpretation and agree with the findings. I also saw and examined the patient with the resident/fellow. I agree with the findings and plan ofcare documented in the resident's/fellow's note. Shilo Serra M[employer] Controls Engineer of Neurology ABPN Board Certified, Neurology ABEM Board Certified, EMG documented in this encounter Plan of Treatment Not on file documented as of this encounter Procedures Procedure Name Priority Date/Time Associated Diagnosis Comments ELECTROMYOGRAM - SCANNED 05/29/2018 8:54 EDT documented in this encounter Results * ELECTROMYOGRAM - SCANNED (05/29/2018 8:54 EDT) 05/29/2018 8:54 EDT us Scan 2 Automotive Lot Attendant PROCEDURE/MINOR SURGICAL OR DERABLES Final Result documented in this encounter Visit Diagnoses Diagnosis Seizures ([facility]) Other convulsions documented in this encounter Care Teams Basket Bottom Machine Operator Relationship Specialty Start Date End Date Aria Thompson MD PCP - General 12/03/17 06/26/24 documented as of this encounter
--- OUTSIDE RECORDS SUMMARY | 2024-09-12 00:56 | XMS_ITS | Encounter Summary ---
Author Organization [facility] Address [address] [place] [address] Care Team Providers Care Us Customs And Border Officer Name Role Phone Aria Thompson MD Primary Care Provider Reason for Visit * Reason Comments New Patient Visit Encounter Details Date Type Department Care Team (Late st Contact Info) Description 12/03/2017 10:00 EDT Office Visit Vascular Surgery and Endovascular Therapy - [address] [phone] Everette Boggs MD [address] [facility], [address] [place] [address] Cyanotic fingertip (Primary Dx) Discharge [...] Boggs MD - 12/03/2017 0000 EDT [facility] VASCULAR SURGERY CONSULTATION - 12/03/2017 Aria Thompson MD [address] Thompson: I saw Elsa Lujan [...] - Everette Boggs MD marco Dictation ID: [id number] cc: Aria Thompson MD, [address] [address] documented in this encounter Plan of Treatment [...] 06/10/2018 added in this encounter Care Teams Us Customs And Border Officer Relationship Specialty Start Date End Date Aria Thompson MD PCP - General 12/03/17 06/26/24 documented as of this encounter
--- OUTSIDE RECORDS SUMMARY | 2024-09-12 00:57 | XMS_ITS | Encounter Summary ---
Author Organization [facility] [place] [address] Care Team Providers Care Vector Control Assistant Name Role Phone Pradeep Gallardo PATRIC Primary Care Provider Encounter Details Date Type Department Care Team ( Contact Info) Description 01/23/2024 Telephone [place] [phone] Elenita Tvaeras Social History Tobacco Use Types Packs/Day Years [...] Department Care Team (Late Contact Info) Description 01/28/2025 10:00 AM EDT Office Visit [place] [phone] Janice Villarreal MD [facility] [place] [address] documented as of this encounter Visit Diagnoses Not on filedocumented in this encounter Care Teams Vector Control Assistant Relationship Specialty Start Date End Date Pradeep Gallardo APRN PCP - General 07/19/10 08/04/24 documented as of this encounter
--- OUTSIDE RECORDS SUMMARY | 2024-09-12 00:57 | XMS_ITS | Encounter Summary ---
[place] [address] Care Team Providers Care Employee Development Manager Name Role Phone Paulina Pradeep Swartz APRN Primary Care Provider [phone] Reason for Visit * Reason Onset Date Comments Bumped Appointment 04/03/2024 Encounter Details Date Type Department Care Team (Late st Contact Info) Description 04/03/2024 Telephone [place] [phone] Kimmy Webster Bumped Appointment Social History Tobacco [...] EDT Called and LVM, also sent a [employer] message to patient for rescheduling bumped appt originally scheduled for 06/25/[address] Villarreal. Please reschedule from cancelled appt. documented in this encounter Plan of Treatment Upcoming Encounters Date Type Department Care Team (Late st Contact Info) Description 01/28/2025 10:00 AM EDT Office Visit [place] [address] Janice Villarreal MD [facility] [place] [address] documented as of this encounter Visit Diagnoses Not on filedocumented in this encounter Care Teams Employee Development Manager Relationship Specialty Start Date End Date Pradeep Gallardo APRN PCP - General 07/19/10 08/04/24 documented as of this encounter
--- OUTSIDE RECORDS SUMMARY | 2024-09-12 00:57 | XMS_ITS | Encounter Summary ---
Author [facility] [place] [address] Care Team Providers Care Chest Pain Coordinator Name Role Phone Paulina Pradeep Swartz APRN Primary Care Provider [phone] Encounter Details Date Type Department Care Team (Late Contact Info) Description 07/13/2023 Telephone [place] [phone] Jeanette Franco RN Social History Tobacco Use [...] 07/13/2023 8:16 AM EST Received call from [facility] infusion, Elsa is due this morning for [...] 10:00 AM EDT Office [place] [address] Janice Villarreal MD [facility] [place] [address] documented as of this encounter Visit Diagnoses Not on filedocumented in this encounter Care Teams Chest Pain Coordinator Relationship Specialty Start Date End Date Pradeep Gallardo APRN PCP - General 07/19/10 08/04/24 documented as of this encounter
--- OUTSIDE RECORDS SUMMARY | 2024-09-12 00:57 | XMS_ITS | Encounter Summary ---
Author Organization [facility] Address [facility] [place] [address] Care Team Providers Care Buffing Wheel Presser Name Role Phone Paulina Pradeep Sheridan SPIVEY Primary Care Provider [phone] Encounter Details Date Type Department Care Team (Late st Contact Info) Description 10/12/2023 [place] [phone] Claire Phillips RN Social History Tobacco Use [...] 10:00 AM EDT Office Visit [place] [phone] Janice Villarreal MD [facility] [place] [address] documented as of this encounter Visit Diagnoses Not on filedocumented in this encounter Care Teams Buffing Wheel Presser Relationship Specialty Start Date End Date Pradeep Gallardo APRN PCP - General 07/19/10 08/04/24 documented as of this encounter
--- OUTSIDE RECORDS SUMMARY | 2024-09-12 00:57 | XMS_ITS | Encounter Summary ---
[place] [address] Care Team Providers Care Multimedia Producer Name Role Phone Paulina Pradeep Swartz APRN Primary Care Provider Encounter Details Date Type Department Care Team (Late st Contact Info) Description 06/21/2023 Telephone [place] [address] Jay Tom RN Social History [...] RN - 06/21/2023 9:29 AM EDT Called [facility] to verify dates of last infusions Patient received Remicade on 03/15/23 and 05/10/23 Next infusion scheduled for 07/05/23 This means IFX level drawn 06/13/23 was done 5 weeks [address] last infusion. Dr. Villarreal informed documented in this encounter Plan of Treatment Upcoming Encounters Date Type Department Care Team (Late st Contact Info) Description 01/28/2025 10:00 AM EDT Office [place] [address] Janice Villarreal MD [facility] [place] [address] documented as of this encounter Visit Diagnoses Not on filedocumented in this encounter Care Teams Multimedia Producer Relationship Specialty Start Date End Date Pradeep Gallardo APRN PCP - General 07/19/10 08/04/24 documented as of this encounter
--- OUTSIDE RECORDS SUMMARY | 2024-09-12 00:57 | XMS_ITS | Encounter Summary ---
Author Organization [facility] Address [facility] [place] [address] Care Team Providers Care Commercial Crabber Name Role Phone Pradeep Gallardo APRN Primary [...] 10:00 AM EDT Office [place] [address] Janice Villarreal MD [facility] [place] [address] documented as of this encounter Visit Diagnoses Not on filedocumented in this encounter Care Teams Commercial Crabber Relationship Specialty Start Date End Date Pradeep Gallardo APRN PCP - General 07/19/10 08/04/24 documented as of this encounter
--- OUTSIDE RECORDS SUMMARY | 2024-09-12 00:57 | XMS_ITS | Encounter Summary ---
Author Organization [facility] Address [facility] [place] [address] Care Team Providers Care Business Solutions Director Name Role Phone Paulina Pradeep Swartz APRN Primary Care Provider [phone] Encounter Details Date Type Department Care Team (Late st Contact Info) Description 07/04/2023 Telephone [place] [phone] Thalia Monahan Social History Tobacco Use Types [...] Monahan - 07/04/2023 10:29 AM EST Elsa Lujan [id number] Diagnosis/Indication: Ulcerative pancolitis without complication [K51.00] Please [...] procedure? No You must have a responsible alliance party who will drive you to your procedure, stay on campus for the entire duration of your procedure, and drive you home from your procedure. Who will likely be your cross country truck driver for the procedure? *Patient must be scheduled for Anesthesia support if BMI is 40 or above* Height: 5'1 Weight: 140 BMI: 26.4 Age:62 y.o. documented in this encounter Plan of Treatment Upcoming Encounters Date Type Department Care Team (Late st Contact Info) Description 01/28/2025 10:00 AM EDT Office Visit [place] [address] Janice Villarreal MD [facility] [place] [address] documented as of this encounter Visit Diagnoses Not on filedocumented in this encounter Care Teams Business Solutions Director Relationship Specialty Start Date End Date Pradeep Gallardo APRN PCP - General 07/19/10 08/04/24 documented as of this encounter
--- OUTSIDE RECORDS SUMMARY | 2024-09-12 00:57 | XMS_ITS | Encounter Summary ---
Author Organization [facility] Address [facility] [place] [address] Care Team Providers Care Bathhouse Attendant Name Role Phone Pradeep Gallardo BRASS ROLLER Primary Care Provider [phone] Encounter Details Date Type Department Care Team (Late st Contact Info) Description 09/05/2023 Notes [place] [address] Jeanette Franco RN Social History [...] EST Orders for Remicade faxed to [facility] for 5mg/kg every 8 weeks. Decreased from 10mg/kg due to elevated LFT's and Elsa's preference. documented in this encounter Plan of Treatment Upcoming Encounters Date Type Department Care Team (Late st Contact Info) Description 01/28/2025 10:00 AM EDT [place] [phone] Janice Villarreal MD [facility] [place] [address] documented as of this encounter Visit Diagnoses Not on filedocumented in this encounter Care Teams Bathhouse Attendant Relationship Specialty Start Date End Date Pradeep Gallardo APRN PCP - General 07/19/10 08/04/24 documented as of this encounter
--- OUTSIDE RECORDS SUMMARY | 2024-09-12 00:57 | XMS_ITS | Encounter Summary ---
Author Organization [facility] [place] [address] Care Team Providers Care Road Mixer Operator Name Role Phone Paulina Pradeep Sheridan SPIVEY Primary Care Provider Encounter Details Date Type Department Care Team (Late st Contact Info) Description 03/14/2024 Orders [place] [address] Janice Villarreal MD [facility] [place] [address] Ulcerative pancolitis without complication Social History Tobacco [...] 10:00 AM EDT Office Visit [place] [phone] Janice Villarreal MD [facility] [place] [address] Scheduled Orders Name Type Priority Associated Diagnoses Orde r Schedule Infliximab Level Lab Routine Ulcerative pancolitis without complication Expected: 03/14/2024, Expires: 09/13/2024 documented as of this encounter Visit Diagnoses Diagnosis Ulcerative pancolitis without complication documented in this encounter Care Teams Road Mixer Operator Relationship Specialty Start Date End Date Pradeep Gallardo APRN PCP - General 07/19/10 08/04/24 documented as of this encounter
--- OUTSIDE RECORDS SUMMARY | 2024-09-12 00:57 | XMS_ITS | Encounter Summary ---
Author Organization [facility] Address [facility] Jose Luis [facility] [place] [place] [address] Care Team Providers Care Geodetic Surveyor Name Role Phone Pradeep Gallardo APRN Primary Care Provider [phone] Encounter Details Date Type Department Care Team (Late st Contact Info) Description 07/30/2023 Telephone [place] [phone] Janice Villarreal MD [facility] [place] [address] Social History Tobacco Use Types Packs/Day Years [...] and Hepatology 07/30/2023 11:36 AM Pager # [phone] documented in this encounter Plan of Treatment Upcoming Encounters Date Type Department Care Team (Late st Contact Info) Description 01/28/2025 10:00 AM EDT Office Visit [place] [address] Janice Villarreal MD [facility] [place] [address] Scheduled Orders Name Type Priority Associated Diagnoses Orde r Schedule Hepatic Function Panel Lab Routine Transaminitis Every 4 Weeks for 4 Occurrences starting 07/30/2023 until 07/30/2024 documented as of this encounter Visit Diagnoses Diagnosis Transaminitis Nonspecific elevation of levels of transaminase or lactic acid dehydrogenase (LDH) documented in this encounter Care Teams Geodetic Surveyor Relationship Specialty Start Date End Date Pradeep Gallardo APRN PCP - General 07/19/10 08/04/24 documented as of this encounter
--- OUTSIDE RECORDS SUMMARY | 2024-09-12 00:57 | XMS_ITS | Encounter Summary ---
[place] [address] Care Team Providers Care Hydrography Teacher Name Role Phone Pradeep Gallardo APRN Primary Care Provider [phone] Reason for Referral * Diagnostic Test (Routine) - Pending Review Specialty Diagnoses / Procedures Referred By Contac t Referred To Contact Radiology Diagnoses Transaminitis Procedures MRI Cholangiopancreatography WO Contrast Janice Villarreal MD [facility] [place] [address] [place] [address] Referral ID Status Reason Start Date Expiration Date Visits Requested Visits Authorized [id number] Pending Review Specialty Service Requested 12/26/2023 06/27/2025 1 1 Reason for Visit * Diagnostic Test (Routine) - Pending Review Specialty Diagnoses / Procedures Referred By Contac t Referred To Contact Radiology Diagnoses Transaminitis Procedures MRI Cholangiopancreatography WO Contrast Janice Villarreal MD [facility] [place] [address] [place] [address] Referral ID Status Reason Start Date Expiration Date Visits Requested Visits Authorized [id number] Pending Review Specialty Service Requested 12/26/2023 06/27/2025 1 1 Encounter Details Date Type Department Care Team (Latest Contact Info) Description 01/17/2024 8:08 AM EDT - 01/17/2024 11:59 PM EDT Hospital [place] [address] Janice Villarreal MD [facility] [place] [address] Transaminitis Discharge Disposition: Home Social History Tobacco [...] 10:00 AM EDT Office [place] [address] Janice Villarreal MD [facility] [place] [address] documented as of this encounter Procedures Procedure Name Priority Date/Time Associated Diagnosis Comments MRI CHOLANGIOPANCREATOGRAPHY Routine 9:20 AM EDT Transaminitis documented in this encounter Results * MRI Cholangiopancreatography WO Contrast (01/17/2024 9:20 AM EDT) WORKSTATION ID [id number] RAD Anatomical Region Laterality Modality Magnetic Resonan ce Impressions 01/17/2024 11:00 AM EDT No stricture or beading to suggest PSC. Thank you for letting us participate in the care of this patient. ??If you are a health care provider and have any questions regarding this report, please contact the number below. ??For patients who have questions please contact the health home health care respiratory therapist that requested your imaging first. ? Narrative [...] who have questions please contactthe health home health care respiratory therapist that requested your imaging first. Janice Villarreal MD IM MRI ORDERABLES documented in this encounter Visit Diagnoses Diagnosis Transaminitis Nonspecific elevation of levels of transaminase or lactic acid dehydrogenase (LDH) documented in this encounter Care Teams Hydrography Teacher Relationship Specialty Start Date End Date Pradeep Gallardo APRN PCP - General 07/19/10 08/04/24 documented as of this encounter
--- OUTSIDE RECORDS SUMMARY | 2024-09-12 00:57 | XMS_ITS | Encounter Summary ---
Author Organization [facility] Address [facility] [address] Care Team Providers Care Facility Maintenance Manager Name Role Phone Pradeep Gallardo APRN [...] 10:00 AM EDT Office [place] [address] Janice Villarreal MD [facility] [place] [address] documented as of this encounter Visit Diagnoses Not on filedocumented in this encounter Care Teams Facility Maintenance Manager Relationship Specialty Start Date End Date Pradeep Gallardo APRN PCP - General 07/19/10 08/04/24 documented as of this encounter
--- OUTSIDE RECORDS SUMMARY | 2024-09-12 00:57 | XMS_ITS | Encounter Summary ---
Author Organization [facility] [place] [address] Care Team Providers Care Hazard Mitigation Officer Name Role Phone Paulina Pradeep Swartz APRN Primary Care Provider [phone] Encounter Details Date Type Department Care Team (Latest Contact Info) Description 06/13/2023 1:05 PM EDT Laboratory Appointment Lab [address] [place] [phone] Ulcerative pancolitis with complication; Urinary frequency Social [...] 10:00 AM EDT Office Visit [place] [address] Janice Villarreal MD [facility] [address] documented as of this encounter Procedures Procedure [...] 12:11 PM EDT) Neutrophil % 26.6 % [facility] Neutrophil Absolute 1.18(L) 1.70 - 6.10 x10(3)/mc L [facility] Lymph % 48.3 % [facility] Lymphocytes Abs 2.1 0.9 - 3.2 x10(3)/mc L [facility] Monocyte % 12.2 % [facility] Monocyte Abs 0.5 0.3 - 0.9 x10(3)/mc L [facility] Eos % 11.3 % [facility] Eosinophils Abs 0.5(H) 0.0 - 0.4 x10(3)/mc L [facility] Basophil % 1.4 % [facility] Baso Absolute 0.1 0.0 - 0.1 x10(3)/mc L [facility] Immature Gran % 0.20 % [facility] Comment: Immature granulocytes(IG's)percentage and absolute count will include metamyelocytes, myelocytes, and promyelocytes. Blood smears from CBCs yielding IG's will be scanned manually for concordance. If this scan disagrees with the automated IG or if promyelocytes are noted, a manual differential will be performed. Immature Gran Absolute 0.01 0.00 - 0.04 x10(3)/mc L [facility] Blood 06/13/2023 12:1 1 PM EDT 06/13/2023 12:19 PM EDT Narrative Resulting Agency Comment Spec In Lab Janice Villarreal MD HEMATOLOGY ORDERABLE S [facility] [place] [address] * (ABNORMAL) Hemogram (06/13/2023 12:11 PM EDT) White Blood Cell 4.4 4.0 - 9.5 x10(3)/mc L [facility] Red Blood Cell 4.10 4.00 - 5.21 x10(6)/mc L [facility] Hemoglobin 12.5 11.7 - 15.5 g/dL [facility] Hematocrit 35.6(L) 35.7 - 45.8 % [facility] Mean Cell Volume 86.8 82.6 - 94.4 fL [facility] Mean Cell Hemoglobin 30.5 27.1 - 32.0 pg [facility] Mean Cell Hemoglobin Concentration 35.1(H) 31.7 - 35.0 g/dL [facility] Platelet 306 145 - 357 x10(3)/mc L [facility] RDW Standard Deviation 48.8(H) 37.0 - 46.0 fL [facility] RDW coefficient of variation 15.2(H) 11.5 - 14.1 % [facility] Mean Platelet Volume 8.8 7.6 - 12.9 fL [facility] NRBC% auto 0.0 % [facility] NRBC Absolute 0.000 0.000 - 0.000 x10(3)/mc L [facility] Blood 06/13/2023 12:1 1 PM EDT 06/13/2023 12:19 PM EDT Narrative Resulting Agency Comment Spec In Lab Janice Villarreal MD HEMATOLOGY ORDERABLE S Performing Organization Address City/[facility]/ZIP Co de Phone Number [facility] [place] [address] * CRP, acute inflammation (06/13/2023 12:11 PM EDT) C-Reactive Protein 3.4 <=4.9 mg/L [facility] Blood 06/13/2023 12:1 1 PM EDT 06/13/2023 12:19 PM EDT Narrative Resulting Agency Comment Spec In Lab Janice Villarreal MD CHEMISTRY ORDERABLES Performing Organization Address [facility]/ZIP Co de Phone Number [facility] [place] [address] * Vitamin D, 25-Hydroxy (06/13/2023 12:11 PM EDT) Vitamin D Total 25 OH 72 21 - 100 ng/mL [facility] Vit D Interp Sufficient [facility] Blood 06/13/2023 12:1 1 PM EDT 06/13/2023 12:19 PM EDT Narrative Resulting Agency Comment Spec In Lab Janice Villarreal MD CHEMISTRY ORDERABLES Performing Organization Address [facility] Co de Phone Number [facility] [place] [address] * (ABNORMAL) Infliximab Level (06/13/2023 12:11 PM [...] ?are greater than 5.0 mcg/mL, clinically relevant ?[id number] fliximab are unlikely and reflex testing ?will not be performed. ? ---ADDITIONAL INFORMATION------- ?This test was developed and its performance characteristics ?determined by [facility] in a manner consistent with CLIA ?requirements. This test has not been cleared or approved by ?the U.S. Food and Drug Administration. ?Test Performed by: ?[facility] ?[address] [place] [address] ?Pairing Machine Operator: Basil Retana M.D. Ph.D.; CLIA# [id number]) [facility] Blood 06/13/2023 12:1 1 PM EDT 06/13/2023 3:13 PM EDT Narrative Resulting Agency Comment Spec In Lab Janice Villarreal MD LAB SEND OUT ORDERAB LES [facility] [address] [place] [address] documented in this encounter Visit Diagnoses Diagnosis Ulcerative pancolitis with complication Urinary frequency documented in this encounter Care Teams Hazard Mitigation Officer Relationship Specialty Start Date End Date Pradeep Gallardo APRN PCP - General 07/19/10 08/04/24 documented as of this encounter
--- OUTSIDE RECORDS SUMMARY | 2024-09-12 00:57 | XMS_ITS | Encounter Summary ---
Author Organization [facility] [place] [address] Care Team Providers Care Doughnut Glazier Name Role Phone Paulina Pradeep Swartz APRN Primary Care Provider [phone] Encounter Details Date Type Department Care Team (Late st Contact Info) Description 03/12/2024 8:30 AM EDT Office [place] [address] Janice Villarreal MD [facility] [place] [address] Ulcerative pancolitis without complication (Primary Dx); Transaminitis [...] from the original note were not included. [facility] Division of Gastroenterology and Hepatology History of Present Illness: Elsa Lujan 63F w/ PMH of extensive colitis following up in GI clinic. Interval Events: -Continuing at low-dose Remicade 5mg/kg due to concerns of 10mg/kg dosing. Remicade due next Sunday at [facility] at [facility] 12/2023 wnl -GI symptoms appear well controlled. [...] N/V. GI History: Patient transferred care from [place] (history below). Well-controlled ulcerative colitis until April [...] yo): N/A Current Immunizations Name Date Covid-19 (Translimit), Vora Cap Bivalent 30mcg (12Yrs+) 09/05/2022 (4) [...] (CTs): 40 minutes spent in chart review, [id number] time and coordination of care with the patient today. Follow up 4 months Janice Villarreal MD Gastroenterology and Hepatology 03/12/2024 8:39 AM Pager # [phone] documented in this encounter Plan of Treatment Upcoming Encounters Date Type Department Care Team (Late st Contact Info) Description 01/28/2025 10:00 AM EDT Office [place] [address] Janice Villarreal MD [facility] [place] [address] Scheduled Orders Name Type Priority Associated Diagnoses [...] Bilirubin, Direct 0.1 0.0 - 0.3 mg/dL [facility] Blood 03/12/2024 9:32 AM EDT 03/12/2024 9:43 AM EDT Narrative Resulting Agency Comment Spec In Lab Janice Villarreal MD CHEMISTRY ORDERABLES Performing Organization Address [facility] Co de Phone Number [facility] [place] [address] * CRP, acute inflammation (03/12/2024 9:32 AM EDT) C-Reactive Protein <3.0 <=4.9 mg/L [facility] Blood 03/12/2024 9:32 AM EDT 03/12/2024 9:43 AM EDT Narrative Resulting Agency Comment Spec In Lab Janice Villarreal MD CHEMISTRY ORDERABLES Performing Organization Address [facility] Co de Phone Number [facility] [place] [address] * Infliximab Level (03/12/2024 9:32 AM EDT) [...] are greater than 5.0 mcg/mL, clinically ?relevant slvacxhddh-pa-rdxd iximab are unlikely and reflex ?testing will not be performed. ? ---ADDITIONAL INFORMATION------- ?This test was developed and its performance characteristics ?determined by [facility] in a manner consistent with CLIA ?requirements. This test has not been cleared or approved by ?the U.S. Food and Drug Administration. ?Test Performed by: ?[facility] ?[address] [place] [address] ?High School Science Tutor: Patricia Saravia Ph.D.; CLIA# [id number] [facility] Blood 03/12/2024 9:32 AM EDT 03/12/2024 12:24 PM EDT Narrative Resulting Agency Comment Spec In Lab Janice Villarreal MD LAB SEND OUT ORDERAB LES [facility] [place] [address] * (ABNORMAL) Comprehensive metabolic panel (non-fasting) (03/12/2024 9:32 AM EDT) Glucose 94 65 - 199 mg/dL [facility] Comment:Diabetes: >=200 mg/d L plus symptoms Blood Urea Nitrogen 13 8 - 18 mg/dL [facility] Creatinine 0.58(L) 0.70 - 1.20 mg/dL [facility] Sodium 135 135 - 145 mmol/L [facility] Potassium 4.5 3.5 - 5.0 mmol/L [facility] Comment: Please note: ??Patients with WBC >100,000 may have falsely elevated Potassium levels. ??For accurate Potassium quantification in these patients send serum separator tube (gold top) for subsequent determinations. ??Contact the Clinical Chemistry Laboratory if there are any questions. Chloride 97(L) 98 - 107 mmol/L [facility] Carbon Dioxide 26 22 - 31 mmol/L [facility] Anion Gap 12 5 - 15 mmol/L [facility] Calcium 9.5 8.5 - 10.5 mg/dL [facility] Protein, Total 6.9 6.1 - 8.0 g/dL [facility] Albumin 4.6 3.2 - 5.2 g/dL [facility] Aspartate Aminotransferase 20 0 - 30 unit/L [facility] Alanine Aminotransferase 28 0 - 30 unit/L [facility] Alkaline Phosphatase 88 35 - 105 unit/L [facility] Bilirubin, Total 0.3 0.2 - 1.3 mg/dL [facility] Est Glomerular Filtration Rate 100 >=60 mL/min/1. 73 m?? [facility] Comment: This patient's estimated GFR [...] In Lab Janice Villarreal MD CHEMISTRY ORDERABLES [facility] [place] [address] documented in this encounter Visit Diagnoses Diagnosis Ulcerative pancolitis without complication- Primary Transaminitis Nonspecific elevation of levels of transaminase or lactic acid dehydrogenase (LDH) documented in this encounter Care Teams Doughnut Glazier Relationship Specialty Start Date End Date Pradeep Gallardo APRN PCP - General 07/19/10 08/04/24 documented as of this encounter
--- OUTSIDE RECORDS SUMMARY | 2024-09-12 00:57 | XMS_ITS | Encounter Summary ---
Author Organization [facility] Jose Luis [facility] [place] [address] Care Team Providers Care Hydropulper Name Role Phone Paulina Pradeep Swartz APRN Primary Care Provider Encounter Details Date Type Department Care Team (Late st Contact Info) Description 08/22/2023 Telephone [place] [phone] Janice Villarreal MD [facility] [place] [address] Social History Tobacco Use Types Packs/Day Years [...] and Hepatology 08/22/2023 11:05 AM Pager # [phone] documented in this encounter Plan of Treatment Upcoming Encounters Date Type Department Care Team (Late st Contact Info) Description 01/28/2025 10:00 AM EDT Office [place] [address] Janice Villarreal MD [facility] [place] [address] documented as of this encounter Results * Ceruloplasmin (12/26/2023 2:08 PM EDT) Ceruloplasmin 29.6 16.0 - 45.0 mg/dL [facility] Blood 12/26/2023 2:08 PM EDT 12/26/2023 2:27 PM EDT Narrative Resulting Agency Comment Spec In Lab Janice Villarreal MD CHEMISTRY ORDERABLES Performing Organization Address City/[facility]/ZIP Co de Phone Number [facility] [place] [address] * A1AT Serum Concentration (12/26/2023 2:08 PM EDT) A1AT 155 90 - 200 mg/dL [facility] Blood 12/26/2023 2:08 PM EDT 12/26/2023 2:27 PM EDT Narrative Resulting Agency Comment Spec In Lab Janice Villarreal MD CHEMISTRY ORDERABLES [facility] [place] [address] * Ferritin (12/26/2023 2:08 PM EDT) Ferritin 55 11 - 328 ng/mL [facility] Comment: Please note that as of 08/01/2023, the reference intervals for Ferritin have been updated. Blood 12/26/2023 2:08 PM EDT 12/26/2023 2:27 PM EDT Narrative Resulting Agency Comment Spec In Lab Janice Villarreal MD CHEMISTRY ORDERABLES Performing Organization Address [facility] Co de Phone Number [facility] [place] [address] * Iron and TIBC (12/26/2023 2:08 PM EDT) Iron 94 30 - 150 mcg/dL [facility] TIBC 298 250 - 450 mcg/dL [facility] Iron Saturation 32 20 - 50 % [facility] Blood 12/26/2023 2:08 PM EDT 12/26/2023 2:27 PM EDT Narrative Resulting Agency Comment Spec In Lab Janice Villarreal MD CHEMISTRY ORDERABLES Performing Organization Address [facility] Co de Phone Number [facility] [place] [address] * Lipid Panel (Reflex Direct LDL) (12/26/2023 2:08 PM EDT) Cholesterol, Total 273 mg/dL [facility] Comment: Desirable: ? <200 mg/dL Borderline High: 200-239 mg/dL Higher: ?>qu=144 mg/dL Triglyceride 36 mg/dL [facility] Comment: Normal: ?<150 mg/dL Borderline High: 150-199 mg/dL High: ?200-499 mg/dL Very High: ? >gz=542 mg/dL HDL Cholesterol 140 mg/dL [facility] Comment: Females: High Risk: <50 mg/dL Males: High Risk: <40 mg/dL LDL Cholesterol 126 mg/dL [facility] Comment: Desirable: ? <100 mg/dL Above Desirable: 100-129 mg/dL Borderline High: 130-159 mg/dL High: ?160-189 mg/dL Very High: ? >hj=716 mg/dL Lipid Interpretation See Note [facility] Comment: It is important [...] ACC/AHA Guidelines (most recently Jenni et al. [facility] 05/30/22): For individuals with atherosclerotic cardiovascular disease (ASCVD)or LDL >ss=484 mg/dL, use a high-intensity statin (40-80 mg [...] MD CHEMISTRY ORDERABLES Performing Organization Address [facility] Co de Phone Number [facility] [place] [address] * Hemoglobin A1c (12/26/2023 2:08 PM EDT) Pathologist [facility] Hemoglobin A1c 5.3 4.3 - 5.6 % [facility] Comment: Reference Range: 4.3 [...] Mellitus, Diabetes Care 2013; 36: Suppl. 1, G61-07 Estimated Average Glucose 106 mg/dL [facility] Blood 12/26/2023 2:08 PM EDT 12/26/2023 2:27 PM EDT Narrative Resulting Agency Comment Spec In Lab Janice Villarreal MD CHEMISTRY ORDERABLES Performing Organization Address [facility] de Phone Number [facility] [place] [address] * Protein Electrophoresis, serum (12/26/2023 2:08 PM EDT) Pathologist [facility] Total Prot Electrophoresis 6.6 6.1 - 8.0 g/dL [facility] Albumin Electrophoresis 4.65 3.20 - 5.20 g/dL [facility] Alpha 1 Globulin 0.17 0.10 - 0.30 g/dL [facility] Alpha 2 Globulin 0.63 0.40 - 0.90 g/dL [facility] Beta Globulin 0.53 0.50 - 1.00 g/dL [facility] Gamma Globulin 0.62 0.50 - 1.30 g/dL [facility] M1 Band None Detected None Detected [facility] Blood 12/26/2023 2:08 PM EDT 12/26/2023 2:27 PM EDT Narrative Resulting Agency Comment Spec In Lab Janice Villarreal MD CHEMISTRY ORDERABLES Performing Organization Address [facility]/ZIP Co de Phone Number [facility] [place] [address] * IgG (12/26/2023 2:08 PM EDT) Immunoglobulin G 877 700 - 1,600 mg/dL [facility] Comment: Pediatric Reference Intervals obtained from the Caliper Reference Interval project. http://[email or web address]/index.html Blood 12/26/2023 2:08 PM EDT 12/26/2023 2:27 PM EDT Narrative Resulting Agency Comment Spec In Lab Janice Villarreal MD CHEMISTRY ORDERABLES Performing Organization Address [facility] Co de Phone Number [facility] [place] [address] * Mitochondrial Antibody, M2 (12/26/2023 2:08 PM EDT) Mitochon Ab (MAY) <0.1 <0.1 (Negative) U [facility] Comment: Test Performed by: [facility] [place] [id number] Flat Screen Worker: Basil Retana M.D. Ph.D.; CLIA# [id number] Blood 12/26/2023 2:08 PM EDT 12/26/2023 3:55 PM EDT Narrative Resulting Agency Comment Spec In Lab Janice Villarreal MD LAB SEND OUT ORDERAB LES Performing Organization Address City/[facility]/ZIP Co de Phone Number [facility] [place] [address] * Smooth Muscle Antibody (12/26/2023 2:08 PM EDT) Sm Muscle Ab (DECEMBER) Negative Negative [facility] Comment: Negative: No further testing will be performed ADDITIONAL INFORMATION This test was developed and its performance characteristics determined by [facility] in a manner consistent with CLIA requirements. This test has not been cleared or approved by the U.S. Food and Drug Administration. Test Performed by: [facility] [address] [place] [address] Flat Screen Worker: Basil Retana M.D. Ph.D.; CLIA# [id number] Blood 12/26/2023 2:08 PM EDT 12/26/2023 3:55 PM EDT Narrative Resulting Agency Comment Spec In Lab Janice Villarreal MD LAB SEND OUT ORDERAB LES [facility] [place] [address] * TORRES Antibody Screen (12/26/2023 2:08 PM EDT) TORRES Ab Screen Negative Negative [facility] Comment: This antinuclear antibody (TORRES) screen is a qualitative test performed using a fluoroenzyme immunoassay on the MemBlazedia 250 analyzer. This screen is designed to detect antibodies to U1RNP, SS-A/Ro, SS-B/La, centromere B, Scl-70, Maru-1, and Sm(Lux) proteins in serum samples. Antibodies to other nuclear antibodies will not be detected with this assay. This TORRES screen is also performed in concert with a quantitative for IgG antibodies to dsDNA. dsDNA Ab 1.1 <=15.0 IU/mL [facility] Comment: <10 negative 10-15 equivocal >15 positive This dsDNA antibody result was generated using a fluoroenzyme immunoassay on the MemBlazedia 250 analyzer. This quantitative test is designed to detect IgG antibodies directed against double stranded DNA in human serum. The presence of antibodies that recognize dsDNA is a highly specific marker for systemic lupus erythematosus. Please note that as of 06/20/2022 that this testing is performed by the Special Chemistry Laboratory at [facility]. This change in testing location is associated with a change is testing method and reference intervals. Please review the results of this test in association with the posted reference intervals. Blood 12/26/2023 2:08 PM EDT 12/27/2023 7:26 AM EDT Narrative Resulting Agency Comment Spec In Lab Janice Villarreal MD LAB SEND OUT ORDERAB LES Performing Organization Address [facility] de Phone Number [facility] [place] [address] * HIV Screen, 4th Generation ([facility]/CGP/APD/NLH) (12/26/2023 2:08 PM EDT) HIV Ab/Ag Screen Negative Negative [facility] Comment: This 4th Generation [...] HIV Comment Low Risk of HIV Infection [facility] Blood 12/26/2023 2:08 PM EDT 12/26/2023 2:27 PM EDT Narrative Resulting Agency Comment Spec In Lab Janice Villarreal MD CHEMISTRY ORDERABLES Performing Organization Address [facility] Co de Phone Number [facility] [place] [address] * Hepatitis C Antibody (12/26/2023 2:08 PM EDT) Hepatitis C Antibody Negative Negative [facility] Blood 12/26/2023 2:08 PM EDT 12/26/2023 2:27 PM EDT Narrative Resulting Agency Comment Spec In Lab Janice Villarreal MD CHEMISTRY ORDERABLES Performing Organization Address [facility]/ZIP Co de Phone Number [facility] [place] [address] documented in this encounter Visit Diagnoses Diagnosis Transaminitis Nonspecific elevation of levels of transaminase or lactic acid dehydrogenase (LDH) documented in this encounter Care Teams Hydropulper Relationship Specialty Start Date End Date Pradeep Gallardo APRN PCP - General 07/19/10 08/04/24 documented as of this encounter
--- OUTSIDE RECORDS SUMMARY | 2024-09-12 00:57 | XMS_ITS | Encounter Summary ---
Author Organization [facility] Address [facility] [place] [address] Care Team Providers Care Freight Hustler Name Role Phone Pradeep Gallardo APRN Primary Care Provider [phone] Encounter Details Date Type Department Care Team [...] 10:00 AM EDT Office [place] [address] Janice Villarreal MD [facility] [place] [address] documented as of this encounter Visit Diagnoses Not on filedocumented in this encounter Care Teams Freight Hustler Relationship Specialty Start Date End Date Pradeep Gallardo APRN PCP - General 07/19/10 08/04/24 documented as of this encounter
--- OUTSIDE RECORDS SUMMARY | 2024-09-12 00:57 | XMS_ITS | Encounter Summary ---
Author Organization [facility] [place] [address] Care Team Providers Care Patrol Police Lieutenant Name Role Phone Pradeep Gallardo APRN Primary Care Provider Encounter Details Date Type Department Care Team (Late st Contact Info) Description 06/21/2023 Orders [place] [phone] Janice Villarreal MD [facility] [place] [address] Ulcerative pancolitis with complication; Encounter for monitoring [...] 10:00 AM EDT Office [place] [phone] Janice Villarreal MD [facility] [place] [address] documented as of this encounter Visit Diagnoses Diagnosis Ulcerative pancolitis with complication Encounter for monitoring of infliximab therapy documented in this encounter Care Teams Patrol Police Lieutenant Relationship Specialty Start Date End Date Pradeep Gallardo APRN PCP - General 07/19/10 08/04/24 documented as of this encounter
--- OUTSIDE RECORDS SUMMARY | 2024-09-12 00:57 | XMS_ITS | Encounter Summary ---
Author Organization [facility] [place] [address] Care Team Providers Care Architectural Design Lecturer Name Role Phone Paulina Pradeep Sheridan SPIVEY Primary Care Provider [phone] Encounter Details Date Type Department Care Team (Late st Contact Info) Description 12/28/2023 Notes [place] [address] Kim Morse PA [facility] [place] [address] Social History Tobacco Use Types Packs/Day Years [...] 3.56) performed by James Bobo MD at [facility] ENDOSCOPY Social History and Habits: Social History [...] 10:00 AM EDT Office [place] [address] Janice Villarreal MD [facility] [place] [address] documented as of this encounter Visit Diagnoses Not on filedocumented in this encounter Care Teams Architectural Design Lecturer Relationship Specialty Start Date End Date Pradeep Gallardo APRN PCP - General 07/19/10 08/04/24 documented as of this encounter
--- OUTSIDE RECORDS SUMMARY | 2024-09-12 00:57 | XMS_ITS | Encounter Summary ---
Author Organization [facility] Address [facility] [place] [address] Care Team Providers Care Grails Web Application Developer Name Role Phone Paulina Pradeep Swartz APRN Primary Care Provider [phone] Encounter Details Date Type Department Care Team (Late st Contact Info) Description 09/03/2023 8:45 AM EST Office Visit Dermatology at [facility] [address] [place] [address] Gretchen Farias MD [facility] [place] [address] Skin cancer screening; Lentigines; Multiple benign nevi [...] OF DERMATOLOGY Medical Dermatology Clinic Provider: Gretchen Fraias MD Patient's preferred name Elsa Preferred contact method for results [x]Phone: Home & Cell []myD-H []Letter Detailed phone message OK? Yes Are there any other people with whom we may discuss your care? [place] Lujan Past Medical History Date, location, treatment [...] return sooner as needed []Note routed to unit secretary [x]Recall placed in scheduling system []Appointment scheduled at checkout Scribe attestation: Kaitlin Lassiter [facility] has performed the documentation for this encounter in thepresence of and acting as a scribe for Gretchen Farias MD. I performed the above scribed service and agree with the accuracy of the documentation in this encounter. Reviewed and signed by: Gretchen Farias MD Dermatology [facility] documented in this encounter Plan of Treatment Upcoming Encounters Date Type Department Care Team (Late st Contact Info) Description 01/28/2025 10:00 AM EDT Office [place] [address] Janice Villarreal MD [facility] [place] [address] documented as of this encounter Procedures Procedure [...] non-neoplastic documented in this encounter Care Teams Grails Web Application Developer Relationship Specialty Start Date End Date Pradeep Gallardo APRN PCP - General 07/19/10 08/04/24 documented as of this encounter
--- OUTSIDE RECORDS SUMMARY | 2024-09-12 00:57 | XMS_ITS | Encounter Summary ---
Author Organization [facility] [place] [address] Care Team Providers Care Earth Sciences Professor Name Role Phone Pradeep Gallardo APRN Primary Care Provider Encounter Details Date Type Department Care Team (Late st Contact Info) Description 02/18/2024 Telephone [place] [phone] Talya Flynn Social History Tobacco Use Types [...] 10:00 AM EDT Office Visit [place] [address] Janice Villarreal MD [facility] [place] [address] documented as of this encounter Visit Diagnoses Not on filedocumented in this encounter Care Teams Earth Sciences Professor Relationship Specialty Start Date End Date Pradeep Gallardo APRN PCP - General 07/19/10 08/04/24 documented as of this encounter
--- OUTSIDE RECORDS SUMMARY | 2024-09-12 00:57 | XMS_ITS | Encounter Summary ---
Author Organization [facility] Address [address] [place] [address] Care Team Providers Care Fiber Optics Engineer Name Role Phone Unavailable Primary Care Provider Unavailabl e Encounter Details Date Type Department Care Team (Latest Contact Info) Description 07/14/2003 9:31 EST - 07/14/2003 11:59 EST Hospital Encounter [address] [address] [place] [address] [place] [address] [place] [address] Discharge Disposition: Auto Discharge Social History Tobacco [...] will contain recommendations for follow-up. /[facility] Addendum # 1 by Amie Goetz [...] BREAST PALP NODULE-SEE COORD SHEET--I HR ONLY [facility] FILMS SENT FOR OUR REVIEW BY DR CHINCHILLA ULTRASOUND-GUIDED FNA OF PROBABLE COMPLEX CYST, LEFT BREAST, AT 12 TO 1 O'CLOCK The patient had an evaluation at [facility], at which time a likely [...] BREAST PALP NODULE-SEE COORD SHEET--I HR ONLY [facility] FILMS SENT FOR OUR REVIEW BY DR CHINCHILLA ULTRASOUND-GUIDED FNA OF PROBABLE COMPLEX CYST, LEFT BREAST, AT 12 TO 1 O'CLOCK The patient had an evaluation at [facility], at which time a likely [...] will contain recommendations for follow-up. /[facility] Addendum # 1 by Amie Goetz [...] results and recommendations. / Frederick Chinchilla MD [facility] ORDERABLES Final Re sult * CYTOPATHOLOGY (07/14/2003 0:00 EST) Pathology Report: CYTOPATHOLOGY REPORT Reports generated via electronic interface contain original data; however they are lacking the format of the original report. Caution should be taken when reading/interpreti ng unformatted reports. Name: ? SKYLA LONDONO ? Accession #: ? [id number] : ? 1960 (Age: 42) ??F ?Collect Date: ? 07/14/2003 Location: ? [facility] ? Receive Date: ? 07/14/2003 Provider: ? BENJAMIN WALL MD Copy to: ?NNAMDI CHINCHILLA MD ? Fine Needle Aspiration/Core Biopsy (Assisted) ? Radiology Department, [place] [address] ([facility]) ? CYTOLOGIC DIAGNOSIS: ? Breast, left, cyst aspirate, cytologic evaluation: - No malignant cells identified. ??See comment. ? COMMENT: ? Microscopic examination shows numerous foam cells in a background of proteinaceous debris. ??This is compatible with a benign cystic process. ??(Dr. Bush)/[facility] Document reviewed and electronically signed by: ? JOHANN BUSH MD [facility] Report Date: ??07/15/2003 12:45 By the signature [...] Fin al Result [facility] [address] [place] [address] documented in this encounter Visit Diagnoses Not on filedocumented in this encounter
--- OUTSIDE RECORDS SUMMARY | 2024-09-12 00:57 | XMS_ITS | Encounter Summary ---
Author Organization [facility] [place] [place] [address] Care Team Providers Care Managed Security Sales Consultant Name Role Phone Paulina Pradeep Swartz APRN Primary Care Provider Encounter Details Date Type Department Care Team (Late st Contact Info) Description 01/23/2024 Tele[place] [phone] Abby Baer RN Social History Tobacco Use [...] had sent her a letter ~ Sent [facility] message with MRI Results letter to [...] 10:00 AM EDT Office [place] [address] Janice Villarreal MD [facility] [place] [address] documented as of this encounter Visit Diagnoses Not on filedocumented in this encounter Care Teams Managed Security Sales Consultant Relationship Specialty Start Date End Date Pradeep Gallardo APRN PCP - General 07/19/10 08/04/24 documented as of this encounter
--- OUTSIDE RECORDS SUMMARY | 2024-09-12 00:57 | XMS_ITS | Encounter Summary ---
Author Organization [facility] [place] [address] Care Team Providers Care Language Teacher Name Role Phone Pradeep Gallardo APRN Primary Care Provider Encounter Details Date Type Department Care Team (Late st Contact Info) Description 06/13/2023 Telephone [place] [phone] Abby Baer RN Social History Tobacco Use [...] - 06/18/2023 8:14 AM EDT Contacted by certified legal secretary specialistRebecca, stating that patient is on the phone. Patient was following up on phone conversation from last week, patient was not able to leave enough urine for lab sample and was asking if she could do this at her local hospital [facility] in [facility]. Asked certified legal secretary specialist to make patient aware that this service writer advisor will contact her once Dr. Villarreal has advised. * Telephone Encounter - Abby Baer RN - 06/13/2023 2:36 PM EDT Contacted by certified legal secretary specialist, Rose, stating that the lab was on the line stating that the quantity wasn't sufficient for a urine test . This service writer advisor called patient who had already left the hospital, but was aware of above information asshe was not able to produce another urine prior to leaving. Patient is asking if she would be able to bring a urine specimen to [facility] in [facility]? Made patient aware that this service writer advisor will send this to Dr. Villarreal for her to review and advise. Patient verbalized understanding and will wait to hear back from our office. documented in this encounter Plan of Treatment Upcoming Encounters Date Type Department Care Team (Late st Contact Info) Description 01/28/2025 10:00 AM EDT Office [place] [address] Janice Villarreal MD [facility] [place] [address] documented as of this encounter Visit Diagnoses Diagnosis Urinary frequency documented in this encounter Care Teams Language Teacher Relationship Specialty Start Date End Date Pradeep Gallardo APRN PCP - General 07/19/10 08/04/24 documented as of this encounter
--- OUTSIDE RECORDS SUMMARY | 2024-09-12 00:57 | XMS_ITS | Encounter Summary ---
Author Organization [facility] Address [facility] [address] Care Team Providers Care Spray Rig Operator Name Role Phone Pradeep Gallardo APRN [...] 10:00 AM EDT Office [place] [address] Janice Villarreal MD [facility] [place] [address] documented as of this encounter Visit Diagnoses Not on filedocumented in this encounter Care Teams Spray Rig Operator Relationship Specialty Start Date End Date Pradeep Gallardo APRN PCP - General 07/19/10 08/04/24 documented as of this encounter
--- OUTSIDE RECORDS SUMMARY | 2024-09-12 00:57 | XMS_ITS | Encounter Summary ---
[facility] [place] [address] Care Team Providers Care Supervisor Compounding And Finishing Name Role Phone Paulina Pradeep Sheridan SPIVEY Primary Care Provider Encounter Details Date Type Department Care Team (Late st Contact Info) Description 12/27/2023 Orders [place] [phone] Janice Villarreal MD [facility] [place] [address] Transaminitis Social History Tobacco Use Types Packs/Day [...] 10:00 AM EDT Office [place] [phone] Janice Villarreal MD [facility] [place] [address] documented as of this encounter Results * (ABNORMAL) Comprehensive metabolic panel (non-fasting) (01/17/2024 9:47 AM EDT) Glucose 107 65 - 199 mg/dL [facility] Comment:Diabetes: >=200 mg/d L plus symptoms Blood Urea Nitrogen 13 8 - 18 mg/dL [facility] Creatinine 0.62(L) 0.70 - 1.20 mg/dL [facility] Sodium 133(L) 135 - 145 mmol/L [facility] Potassium 4.4 3.5 - 5.0 mmol/L [facility] Comment: Please note: ??Patients with WBC >100,000 may have falsely elevated Potassium levels. ??For accurate Potassium quantification in these patients send serum separator tube (gold top) for subsequent determinations. ??Contact the Clinical Chemistry Laboratory if there are any questions. Chloride 97(L) 98 - 107 mmol/L [facility] Carbon Dioxide 27 22 - 31 mmol/L [facility] Anion Gap 9 5 - 15 mmol/L [facility] Calcium 9.3 8.5 - 10.5 mg/dL [facility] Protein, Total 6.8 6.1 - 8.0 g/dL [facility] Albumin 4.5 3.2 - 5.2 g/dL [facility] Aspartate Aminotransferase 33(H) 0 - 30 unit/L [facility] Alanine Aminotransferase 42(H) 0 - 30 unit/L [facility] Alkaline Phosphatase 84 35 - 105 unit/L [facility] Bilirubin, Total 0.3 0.2 - 1.3 mg/dL [facility] Est Glomerular Filtration Rate 99 >=60 mL/min/1. 73 m?? [facility] [...] In Lab Janice Villarreal MD CHEMISTRY ORDERABLES [facility] [place] [address] documented in this encounter Visit Diagnoses Diagnosis Transaminitis Nonspecific elevation of levels of transaminase or lactic acid dehydrogenase (LDH) documented in this encounter Care Teams Supervisor Compounding And Finishing Relationship Specialty Start Date End Date Pradeep Gallardo APRN PCP - General 07/19/10 08/04/24 documented as of this encounter
--- OUTSIDE RECORDS SUMMARY | 2024-09-12 00:57 | XMS_ITS | Encounter Summary ---
Author Organization [facility] [place] [address] Care Team Providers Care Distributor Sales Consultant Name Role Phone Paulina Pradeep Swartz APRN Primary Care Provider [phone] Encounter Details Date Type Department Care Team (Latest Contact Info) Description 01/17/2024 10:10 AM EDT Laboratory Appointment Lab [address] [place] [phone] Ulcerative pancolitis without complication; Transaminitis Social History [...] 10:00 AM EDT Office [place] [address] Janice Villarreal MD [facility] [place] [address] documented as of this encounter Procedures Procedure Name Priority Date/Time Associated Diagnosis Comments INFLIXIMAB LEVEL Routine 01/17/2024 9:47 AM EDT Ulcerative pancolitis without complication COMPREHENSIVE METABOLIC PANEL Routine 01/17/2024 9:47 AM EDT Transaminitis documented in this encounter Results * (ABNORMAL) Comprehensive metabolic panel (non-fasting) (01/17/2024 9:47 AM EDT) Glucose 107 65 - 199 mg/dL [facility] Comment:Diabetes: >=200 mg/d L plus symptoms Blood Urea Nitrogen 13 8 - 18 mg/dL [facility] Creatinine 0.62(L) 0.70 - 1.20 mg/dL [facility] Sodium 133(L) 135 - 145 mmol/L [facility] Potassium 4.4 3.5 - 5.0 mmol/L [facility] Comment: Please note: ??Patients with WBC >100,000 may have falsely elevated Potassium levels. ??For accurate Potassium quantification in these patients send serum separator tube (gold top) for subsequent determinations. ??Contact the Clinical Chemistry Laboratory if there are any questions. Chloride 97(L) 98 - 107 mmol/L [facility] Carbon Dioxide 27 22 - 31 mmol/L [facility] Anion Gap 9 5 - 15 mmol/L [facility] Calcium 9.3 8.5 - 10.5 mg/dL [facility] Protein, Total 6.8 6.1 - 8.0 g/dL [facility] Albumin 4.5 3.2 - 5.2 g/dL [facility] Aspartate Aminotransferase 33(H) 0 - 30 unit/L [facility] Alanine Aminotransferase 42(H) 0 - 30 unit/L [facility] Alkaline Phosphatase 84 35 - 105 unit/L [facility] Bilirubin, Total 0.3 0.2 - 1.3 mg/dL [facility] Est Glomerular Filtration Rate 99 >=60 mL/min/1. 73 m?? [facility] [...] MD CHEMISTRY ORDERABLES Performing Organization Address [facility]/State/[facility] Co de Phone Number [facility] [place] [address] * Infliximab Level (01/17/2024 9:47 AM EDT) [...] are greater than 5.0 mcg/mL, clinically ?relevant nwzivcfbhh-yy-pnyv iximab are unlikely and reflex ?testing will not be performed. ? ---ADDITIONAL INFORMATION------- ?This test was developed and its performance characteristics ?determined by [facility] in a manner consistent with CLIA ?requirements. This test has not been cleared or approved by ?the U.S. Food and Drug Administration. ?Test Performed by: ?[facility] ?[address] [place] [address] ?Nuclear Technologist: Basil Retana M.D. Ph.D.; CLIA# [id number] [facility] Blood 01/17/2024 9:47 AM EDT 01/17/2024 12:31 PM EDT Narrative Resulting Agency Comment Spec In Lab Janice Villarreal MD LAB SEND OUT ORDERAB LES Performing Organization Address City/State/[facility] Co de Phone Number [facility] [place] [address] documented in this encounter Visit Diagnoses Diagnosis Ulcerative pancolitis without complication Transaminitis Nonspecific elevation of levels of transaminase or lactic acid dehydrogenase (LDH) documented in this encounter Care Teams Distributor Sales Consultant Relationship Specialty Start Date End Date Pradeep Gallardo APRN PCP - General 07/19/10 08/04/24 documented as of this encounter
--- OUTSIDE RECORDS SUMMARY | 2024-09-12 00:57 | XMS_ITS | Encounter Summary ---
Author Organization [facility] Address [facility] [place] [address] Care Team Providers Care Associate Professor Of Counseling Name Role Phone Pradeep Gallardo APRN Primary Care Provider [phone] Encounter Details Date Type Department Care Team (Late st Contact Info) Description 12/27/2023 Telephone [place] [phone] Janice Villarreal MD [facility] [place] [address] Social History Tobacco Use Types Packs/Day Years [...] and Hepatology 12/27/2023 4:49 PM Pager # [phone] documented in this encounter Plan of Treatment Upcoming Encounters Date Type Department Care Team (Late st Contact Info) Description 01/28/2025 10:00 AM EDT Office Visit [place] [phone] Janice Villarreal MD [facility] [place] [address] documented as of this encounter Results * [...] are greater than 5.0 mcg/mL, clinically ?relevant iikltdxrpn-ky-ksjo iximab are unlikely and reflex ?testing will not be performed. ? ---ADDITIONAL INFORMATION------- ?This test was developed and its performance characteristics ?determined by [facility] in a manner consistent with CLIA ?requirements. This test has not been cleared or approved by ?the U.S. Food and Drug Administration. ?Test Performed by: ?[facility] ?[address] [place] [address] ?Ship'S Surveyor: Basil Retana M.D. Ph.D.; CLIA# [id number] [facility] Blood 01/17/2024 9:47 AM EDT 01/17/2024 12:31 PM EDT Narrative Resulting Agency Comment Spec In Lab Janice Villarreal MD LAB SEND OUT ORDERAB LES Performing Organization Address City/State/[facility] Co de Phone Number [facility] [place] [address] documented in this encounter Visit Diagnoses Diagnosis Ulcerative pancolitis without complication documented in this encounter Care Teams Associate Professor Of Counseling Relationship Specialty Start Date End Date Pradeep Gallardo APRN PCP - General 07/19/10 08/04/24 documented as of this encounter
--- OUTSIDE RECORDS SUMMARY | 2024-09-12 00:57 | XMS_ITS | Encounter Summary ---
Author Organization [facility] [place] [address] Care Team Providers Care Order Builder Name Role Phone Pradeep Gallardo APRN Primary Care Provider [phone] Encounter Details Date Type Department Care Team (Late st Contact Info) Description 08/24/2023 Telephone [place] [phone] Jeanette Franco RN Social History Tobacco Use [...] 08/24/2023 9:22 AM EST Prior Authorization Facility: [facility] TIN: [id number] Medication: Remicade J-code: [id number] Dosage: 5 mg/kg Frequency & Route: every 8 weeks Insurance & Phone #: BCBS [facility] [phone] ID #: [id number] Trialed (dosage, frequency): mesalamine, budesonide (rashes), prednisone, [...] 10:00 AM EDT Office [place] [address] Janice Villarreal MD [facility] [place] [address] documented as of this encounter Visit Diagnoses Not on filedocumented in this encounter Care Teams Order Builder Relationship Specialty Start Date End Date Pradeep Gallardo APRN PCP - General 07/19/10 08/04/24 documented as of this encounter
--- OUTSIDE RECORDS SUMMARY | 2024-09-12 00:57 | XMS_ITS | Clinical Summary ---
Author Organization [facility] Address [facility] [place] [address] Care Team Providers Care Industrial Energy Engineer Name Role Phone Rosi Ordoñez MD [...] from the original. Receives Remicade infusions at [facility] Problem Noted Date Diagnosed Date Age related osteoporosis 08/14/2022 Seizure disorder 08/14/2022 Ulcerative colitis 08/09/2022 Nontoxic single thyroid nodule Encounters Date Type Department Care Team Description 09/09/2024 Notes Only [place] [address] Shayla Sierra RN 07/30/2024 9:30 AM EST Office Visit [place] [address] Janice Villarreal MD Ulcerative pancolitis without complication [...] 10:00 AM EDT Office Visit [place] [address] Janice Villarreal MD [facility] [place] [address] Health Maintenance Due Date Last Done Comments CT Colonography 1960 FIT DNA 1960 FIT 1960 Sigmoidoscopy 1960 Tetanus/Diphtheria/Pertussis Vaccines (1 - Tdap) 1977 HPV test 1988 PAP Smear 1988 Breast Cancer Share Decision Needed 1998 Breast Cancer screening 1998 Pneumoccocal Vaccine: 50+ (1 of 1 - PCV) 2008 Zoster [...] Diagnosis Comments ORDS - PROVIDER CARE SCAN 09/09/2024 12:00 AM EST LAB SCAN 07/09/2024 12:00 AM EST COMPREHENSIVE METABOLIC PANEL Routine 03/12/2024 9:32 AM EDT Transaminitis HIV SCREEN, 4TH GENERATION ([facility]/CGP/APD/NLH)PERF ORMABLE Routine 12/26/2023 2:08 PM EDT Transaminitis HEPATITIS C ANTIBODY Routine 12/26/2023 2:08 PM EDT Transaminitis COLONOSCOPY Routine 10/09/2023 9:59 AM EST from Last 3 Months or Most Recently Relevant to Health Maintenance Results * Scan Doc: [facility]ds - Provider Care (09/09/2024 12:00 AM EST) Narrative 09/09/2024 12:00 AM EST Ordered by an unspecified provider. Scanning Provider MEDIA MGR SCAN EXT O RDR/RSLT * Scan Doc: Lab (07/09/2024 12:00 AM [...] MD CHEMISTRY ORDERABLES Performing Organization Address [facility]/ZIP Co de Phone Number [facility] [place] [address] * Hepatitis C Antibody (12/26/2023 2:08 PM EDT) Hepatitis C Antibody Negative Negative [facility] Blood 12/26/2023 2:08 PM EDT 12/26/2023 2:27 PM EDT Narrative Resulting Agency Comment Spec In Lab Janice Villarreal MD CHEMISTRY ORDERABLES Performing Organization Address [facility]/ZIP Co de Phone Number [facility] [place] [address] * HIV Screen, 4th Generation ([facility]/CGP/APD/NLH) (12/26/2023 2:08 PM EDT) HIV Ab/Ag Screen Negative Negative [facility] Comment: This 4th Generation HIV [...] HIV Comment Low Risk of HIV Infection [facility] Blood 12/26/2023 2:08 PM EDT 12/26/2023 2:27 PM EDT Narrative Resulting Agency Comment Spec In Lab Janice Villarreal MD CHEMISTRY ORDERABLES [facility] [place] [address] * COLONOSCOPY (10/09/2023 9:59 AM EST) COLONOSCOPY [facility] Endoscopy Procedure Date: 10/09/2023 9:59 AM ? Patient Name: Elsa Lujan ? Date of : 1960 ? Age: 62 ? Order #: [id number] ? Instrument Name: [id number] ? Procedure: ? Colonoscopy Indications: ? Pt with UC, Asx now on IFX Providers: ? James Bobo MD, Tiffanie Richardson ? Nlis Millan MD: ?Aria Thompson MD Medicines: ? [...] preparation was evaluated ? using the BBPS ([place] Bowel ? Preparation Scale) with scores of: [...] Status decision made by: Patient Care Teams Industrial Energy Engineer Relationship Specialty Start Date End Date Rosi Ordoñez MD [address] [place] [address] PCP - General Family Medicine 08/05/24
--- OUTSIDE RECORDS SUMMARY | 2024-09-12 00:57 | XMS_ITS | Encounter Summary ---
Author Organization [facility] [place] [address] Care Team Providers Care Preschool Program Director Name Role Phone Pradeep Gallardo APRN Primary Care Provider [phone] Reason for Referral * Diagnostic Test (Routine) - Pending Review Specialty Diagnoses / Procedures Referred By Contac t Referred To Contact Radiology Diagnoses Transaminitis Procedures MRI Cholangiopancreatography WO Contrast Janice Villarreal MD [facility] [place] [address] [place] [address] Referral ID Status Reason Start Date Expiration Date Visits Requested Visits Authorized [id number] Pending Review Specialty Service Requested 12/26/2023 06/27/2025 1 1 Encounter Details Date Type Department Care Team (Late st Contact Info) Description 12/26/2023 1:00 PM EDT Office Visit [place] [address] Janice Villarreal MD [facility] [place] [address] Ulcerative pancolitis without complication (Primary [...] from the original note were not included. [facility] Division of Gastroenterology and Hepatology History [...] -recovering from the flu, had it in [place] in October 2031. Took a few weeks [...] N/V. GI History: Patient transferred care from [place] (history below). Well-controlled ulcerative colitis until April [...] (CTs): 45 minutes spent in chart review, brwj-[id number]-braf time and coordination of care with the patient today. Follow up 6 months Janice Villarreal MD Gastroenterology and Hepatology 12/26/2023 1:44 PM Pager # [phone] documented in this encounter Plan of Treatment Upcoming Encounters Date Type Department Care Team (Late st Contact Info) Description 01/28/2025 10:00 AM EDT Office Visit [place] [address] Janice Villarreal MD [facility] [place] [address] Scheduled Orders Name Type Priority Associated Diagnoses Orde r Schedule TORRES Antibody Screen Lab Routine Transaminitis Expected: 12/26/2023 (Approximate), Expires: 06/26/2024 IgG Lab Routine Transaminitis Expected: 12/26/2023 (Approximate), Expires: 06/26/2024 Protein Electrophoresis, serum Lab Routine Transaminitis Expected: 12/26/2023 (Approximate), Expires: 06/26/2024 documented as of this encounter Results * MRI Cholangiopancreatography WO Contrast (01/17/2024 9:20 AM EDT) WORKSTATION ID [id number] RAD Anatomical Region Laterality Modality Magnetic Resonan ce Impressions 01/17/2024 11:00 AM EDT No stricture or beading to suggest PSC. Thank you for letting us participate in the care of this patient. ??If you are a health care provider and have any questions regarding this report, please contact the number below. ??For patients who have questions please contact the health respiratory care technician that requested your imaging first. ? Electronically signed by: MUNA CAMPBELL MD, [facility] ([phone]), at 01/17/2024 11:00 AM Narrative 01/17/2024 11:00 [...] patients who have questions please contactthe health respiratory care technician that requested your imaging first. Electronically signed by: MUNA CAMPBELL MD, [facility]([phone]), at 01/17/2024 11:00 AM Janice Villarreal MD IMG MRI ORDERABLES * Mitochondrial Antibody, M2 (12/26/2023 2:09 PM EDT) Mitochon Ab (DECEMBER) <0.1 <0.1 (Negative) U [facility] Comment: Test Performed by: [address] [address] Medical Doctor Md: Basil Retana M.D. Ph.D.; CLIA# [id number] Blood 12/26/2023 2:09 PM EDT 12/26/2023 3:55 PM EDT Narrative Resulting Agency Comment Spec In Lab Janice Villarreal MD LAB SEND OUT ORDERAB LES [facility] [place] [address] * Smooth Muscle Antibody (12/26/2023 2:09 PM EDT) Pathologist [facility] Sm Muscle Ab (DECEMBER) Negative Negative M YARIEL [facility] Comment: Negative: No further testing will be performed ADDITIONAL INFORMATION This test was developed and its performance characteristics determined by [facility] in a manner consistent with CLIA requirements. This test has not been cleared or approved by the U.S. Food and Drug Administration. Test Performed by: [facility] [address] [place] [address] Medical Doctor Md: Basil Retana M.D. Ph.D.; CLIA# [id number] Blood 12/26/2023 2:09 PM EDT 12/26/2023 3:55 PM EDT Narrative Resulting Agency Comment Spec In Lab Janice Villarreal MD LAB SEND OUT ORDERAB LES [facility] [place] [address] * (ABNORMAL) Comprehensive metabolic panel (non-fasting) (12/26/2023 2:08 PM EDT) Pathologist [facility] Glucose 104 65 - 199 mg/dL [facility] Comment:Diabetes: >=200 mg/d L plus symptoms Blood Urea Nitrogen 11 8 - 18 mg/dL [facility] Creatinine 0.62(L) 0.70 - 1.20 mg/dL [facility] Sodium 127(L) 135 - 145 mmol/L [facility] Potassium 4.1 3.5 - 5.0 mmol/L [facility] Comment: Please note: ??Patients with WBC >100,000 may have falsely elevated Potassium levels. ??For accurate Potassium quantification in these patients send serum separator tube (gold top) for subsequent determinations. ??Contact the Clinical Chemistry Laboratory if there are any questions. Chloride 89(L) 98 - 107 mmol/L [facility] Carbon Dioxide 28 22 - 31 mmol/L [facility] Anion Gap 10 5 - 15 mmol/L [facility] Calcium 9.6 8.5 - 10.5 mg/dL [facility] Protein, Total 7.0 6.1 - 8.0 g/dL [facility] Albumin 4.7 3.2 - 5.2 g/dL [facility] Aspartate Aminotransferase 39(H) 0 - 30 unit/L [facility] Alanine Aminotransferase 60(H) 0 - 30 unit/L [facility] Alkaline Phosphatase 89 35 - 105 unit/L [facility] Bilirubin, Total 0.3 0.2 - 1.3 mg/dL [facility] Est Glomerular Filtration Rate 99 >=60 mL/min/1. 73 m?? [facility] Comment: This patient's estimated [...] MD CHEMISTRY ORDERABLES [facility] [place] [address] documented in this encounter Visit Diagnoses Diagnosis Ulcerative pancolitis without complication- Primary Transaminitis Nonspecific elevation of levels of transaminase or lactic acid dehydrogenase (LDH) Transaminitis Nonspecific elevation of levels of transaminase or lactic acid dehydrogenase (LDH) documented in this encounter Care Teams Preschool Program Director Relationship Specialty Start Date End Date Pradeep Gallardo APRN PCP - General 07/19/10 08/04/24 documented as of this encounter
--- OUTSIDE RECORDS SUMMARY | 2024-09-12 00:57 | XMS_ITS | Encounter Summary ---
Author Organization [facility] [place] [address] Care Team Providers Care Churn Driller Name Role Phone Rosi Ordoñez MD Primary Care Provider [phone] Encounter Details Date Type Department Care Team (Late st Contact Info) Description 09/09/2024 Notes [place] [address] Shayla Sierra RN Social History [...] as of this encounter Progress Notes * Shayla Sierra RN - 09/09/2024 8:52 AM EST Renewal order for Remicade 5mg/kg faxed to [facility] documented in this encounter Plan of Treatment Upcoming Encounters Date Type Department Care Team (Late st Contact Info) Description 01/28/2025 10:00 AM EDT Office [place] [phone] Janice Villarreal MD [facility] [place] [address] documented as of this encounter Visit Diagnoses Not on filedocumented in this encounter Care Teams Churn Driller Relationship Specialty Start Date End Date Rosi Ordoñez MD [address] [place] [address] PCP - General Family Medicine 08/05/24 documented as of this encounter
--- OUTSIDE RECORDS SUMMARY | 2024-09-12 00:57 | XMS_ITS | Encounter Summary ---
Author Organization [facility] Address [facility] [place] [address] Care Team Providers Care Research And Development Chemist Name Role Phone Pradeep Gallardo APRN Primary [...] 10:00 AM EDT Office [place] [address] Janice Villarreal MD [facility] [place] [address] documented as of this encounter Visit Diagnoses Not on filedocumented in this encounter Care Teams Research And Development Chemist Relationship Specialty Start Date End Date Pradeep Gallardo APRN PCP - General 07/19/10 08/04/24 documented as of this encounter
--- OUTSIDE RECORDS SUMMARY | 2024-09-12 00:57 | XMS_ITS | Encounter Summary ---
Author Organization [facility] Address [facility] [place] [address] Care Team Providers Care Portuguese Tutor Name Role Phone Pradeep Gallardo APRN Primary Care Provider [phone] Encounter Details Date Type Department Care Team [...] 10:00 AM EDT Office [place] [address] Janice Villarreal MD [facility] [place] [address] documented as of this encounter Visit Diagnoses Not on filedocumented in this encounter Care Teams Portuguese Tutor Relationship Specialty Start Date End Date Pradeep Gallardo APRN PCP - General 07/19/10 08/04/24 documented as of this encounter
--- OUTSIDE RECORDS SUMMARY | 2024-09-12 00:57 | XMS_ITS | Encounter Summary ---
Author Organization [facility], [facility] Address [facility] [place] [address] Care Team Providers Care Bindery Library Technical Assistant Name Role Phone Paulina Pradeep Swartz APRN Primary Care Provider [phone] Encounter Details Date Type Department Care Team (Latest Contact Info) Description 12/26/2023 1:50 PM EDT Laboratory Appointment Lab [address] [place] [id number] Transaminitis Social History Tobacco Use Types Packs/Day [...] 10:00 AM EDT Office [place] [address] Janice Villarreal MD [facility] [place] [address] documented as of this encounter Procedures Procedure Name Priority Date/Time Associated Diagnosis Comments MITOCHONDRIAL ANTIBODY, M2 Routine 12/26/2023 2:09 PM EDT Transaminitis SMOOTH MUSCLE ANTIBODY Routine 2:09 PM EDT Transaminitis BILIRUBIN, DIRECT Routine 12/26/2023 2:0 8 PM EDT HEPATITIS C ANTIBODY Routine 12/26/2023 2:08 PM EDT Transaminitis IRON AND TIBC Routine 12/26/2023 2:08 PM EDT Transaminitis [id number] Routine 12/26/2023 2 :08 PM EDT Transaminitis MITOCHONDRIAL ANTIBODY, M2 Routine 12/26/2023 2:08 PM EDT Transaminitis CERULOPLASMIN Routine 12/26/2023 2:08 PM EDT Transaminitis SMOOTH MUSCLE ANTIBODY Routine 2:08 PM EDT Transaminitis HIV SCREEN, 4TH GENERATION ([facility]/CGP/APD/NLH)PERFO RMABLE Routine 12/26/2023 2:08 PM EDT Transaminitis HC DNA AB DS ([place]) Routine 12/26/2023 2:08 PM EDT Transaminitis HC [...] Muscle Ab (DECEMBER) Negative Negative M YARIEL [facility] Comment: Negative: No further testing will be performed ADDITIONAL INFORMATION This test was developed and its performance characteristics determined by [facility] in a manner consistent with CLIA requirements. This test has not been cleared or approved by the U.S. Food and Drug Administration. Test Performed by: [place] [address] Tape Edge Machine Operator: Basil Retana M.D. Ph.D.; CLIA# [id number] Blood 12/26/2023 2:09 PM EDT 12/26/2023 3:55 PM EDT Narrative Resulting Agency Comment Spec In Lab Janice Villarreal MD LAB SEND OUT ORDERAB LES Performing Organization Address [facility]/ZIP Co de Phone Number [facility] [place] [address] * Mitochondrial Antibody, M2 (12/26/2023 2:09 PM EDT) Mitochon Ab (DECEMBER) <0.1 <0.1 (Negative) [facility] Comment: Test Performed by: [facility] - [address] [address] Tape Edge Machine Operator: Basil Retana M.D. Ph.D.; CLIA# [id number] Blood 12/26/2023 2:09 PM EDT 12/26/2023 3:55 PM EDT Narrative Resulting Agency Comment Spec In Lab Janice Villarreal MD LAB SEND OUT ORDERAB LES [facility] [place] [address] * Bilirubin, Direct (12/26/2023 2:08 PM EDT) Bilirubin, Direct 0.1 0.0 - 0.3 mg/dL [facility] Blood 12/26/2023 2:08 PM EDT 12/26/2023 2:27 PM EDT Narrative Resulting Agency Comment Spec In Lab Janice Villarreal MD CHEMISTRY ORDERABLES [facility] [place] [address] * (ABNORMAL) Comprehensive metabolic panel (non-fasting) (12/26/2023 2:08 PM EDT) Pathologist [facility] Glucose 104 65 - 199 mg/dL [facility] Comment:Diabetes: >=200 mg/d L plus symptoms Blood Urea Nitrogen 11 8 - 18 mg/dL [facility] Creatinine 0.62(L) 0.70 - 1.20 mg/dL [facility] Sodium 127(L) 135 - 145 mmol/L [facility] Potassium 4.1 3.5 - 5.0 mmol/L [facility] Comment: Please note: ??Patients with WBC >100,000 may have falsely elevated Potassium levels. ??For accurate Potassium quantification in these patients send serum separator tube (gold top) for subsequent determinations. ??Contact the Clinical Chemistry Laboratory if there are any questions. Chloride 89(L) 98 - 107 mmol/L [facility] Carbon Dioxide 28 22 - 31 mmol/L [facility] Anion Gap 10 5 - 15 mmol/L [facility] Calcium 9.6 8.5 - 10.5 mg/dL [facility] Protein, Total 7.0 6.1 - 8.0 g/dL [facility] Albumin 4.7 3.2 - 5.2 g/dL [facility] Aspartate Aminotransferase 39(H) 0 - 30 unit/L [facility] Alanine Aminotransferase 60(H) 0 - 30 unit/L [facility] Alkaline Phosphatase 89 35 - 105 unit/L [facility] Bilirubin, Total 0.3 0.2 - 1.3 mg/dL [facility] Est Glomerular Filtration Rate 99 >=60 mL/min/1. 73 m?? [facility] [...] Villarreal MD CHEMISTRY ORDERABLES Performing Organization Address City/[facility]/ZIP Co de Phone Number [facility] [place] [address] * Hepatitis C Antibody (12/26/2023 2:08 PM EDT) Hepatitis C Antibody Negative Negative [facility] Blood 12/26/2023 2:08 PM EDT 12/26/2023 2:27 PM EDT Narrative Resulting Agency Comment Spec In Lab Janice Villarreal MD CHEMISTRY ORDERABLES [facility] [place] [address] * HIV Screen, 4th Generation ([facility]/CGP/APD/NLH) (12/26/2023 2:08 PM EDT) HIV Ab/Ag Screen Negative Negative [facility] Comment: This 4th [...] HIV Comment Low Risk of HIV Infection [facility] Blood 12/26/2023 2:08 PM EDT 12/26/2023 2:27 PM EDT Narrative Resulting Agency Comment Spec In Lab Janice Villarreal MD CHEMISTRY ORDERABLES [facility] [place] [address] * TORRES Antibody Screen (12/26/2023 2:08 PM EDT) TORRES Ab Screen Negative Negative [facility] Comment: This antinuclear [...] to dsDNA. dsDNA Ab 1.1 <=15.0 IU/mL [facility] Comment: <10 negative [...] performed by the Special Chemistry Laboratory at [facility]. This change in testing location is associated with a change is testing method and reference intervals. Please review the results of this test in association with the posted reference intervals. Blood 12/26/2023 2:08 PM EDT 12/27/2023 7:26 AM EDT Narrative Resulting Agency Comment Spec In Lab Janice Villarreal MD LAB SEND OUT ORDERAB LES Performing Organization Address City/[facility]/ZIP Co de Phone Number [facility] [place] [address] * Smooth Muscle Antibody (12/26/2023 2:08 PM EDT) Sm Muscle Ab (DECEMBER) Negative Negative M [facility] Comment: Negative: No further testing will be performed ADDITIONAL INFORMATION This test was developed and its performance characteristics determined by [facility] in a manner consistent with CLIA requirements. This test has not been cleared or approved by the U.S. Food and Drug Administration. Test Performed by: [facility] [place] [address] Tape Edge Machine Operator: Basil Retana M.D. Ph.D.; CLIA# [id number] Blood 12/26/2023 2:08 PM EDT 12/26/2023 3:55 PM EDT Narrative Resulting Agency Comment Spec In Lab Janice Villarreal MD LAB SEND OUT ORDERAB LES Performing Organization Address [facility] Co de Phone Number [facility] [place] [address] * Mitochondrial Antibody, M2 (12/26/2023 2:08 PM EDT) Mitochon Ab (DECEMBER) <0.1 <0.1 (Negative) [facility] Comment: Test Performed by: [facility] [place] [address] Tape Edge Machine Operator: Basil Retana M.D. Ph.D.; CLIA# [id number] Blood 12/26/2023 2:08 PM EDT 12/26/2023 3:55 PM EDT Narrative Resulting Agency Comment Spec In Lab Janice Villarreal MD LAB SEND OUT ORDERAB LES Performing Organization Address [facility]/ZIP Co de Phone Number [facility] [place] [address] * IgG (12/26/2023 2:08 PM EDT) [facility] Immunoglobulin G 877 700 - 1,600 mg/dL [facility] Comment: Pediatric Reference Intervals obtained from the Caliper Reference Interval project. http://www.STORYS.JP.ca/caliperproject/index.html Blood 12/26/2023 2:08 PM EDT 12/26/2023 2:27 PM EDT Narrative Resulting Agency Comment Spec In Lab Janice Villarreal MD CHEMISTRY ORDERABLES Performing Organization Address [facility] Co de Phone Number [facility] [place] [address] * Protein Electrophoresis, serum (12/26/2023 2:08 PM EDT) [facility] Total Prot Electrophoresis 6.6 6.1 - 8.0 g/dL [facility] Albumin Electrophoresis 4.65 3.20 - 5.20 g/dL [facility] Alpha 1 Globulin 0.17 0.10 - 0.30 g/dL [facility] Alpha 2 Globulin 0.63 0.40 - 0.90 g/dL [facility] Beta Globulin 0.53 0.50 - 1.00 g/dL [facility] Gamma Globulin 0.62 0.50 - 1.30 g/dL [facility] M1 Band None Detected None Detected [facility] Blood 12/26/2023 2:08 PM EDT 12/26/2023 2:27 PM EDT Narrative Resulting Agency Comment Spec In Lab Janice Villarreal MD CHEMISTRY ORDERABLES Performing Organization Address [facility]/ZIP Co de Phone Number [facility] [place] [address] * Hemoglobin A1c (12/26/2023 2:08 PM EDT) Hemoglobin A1c 5.3 4.3 - 5.6 % [facility] Comment: Reference Range: [...] Mellitus, Diabetes Care 2013; 36: Suppl. 1, S67-09 Estimated Average Glucose 106 mg/dL [facility] Blood 12/26/2023 2:08 PM EDT 12/26/2023 2:27 PM EDT Narrative Resulting Agency Comment Spec In Lab Janice Villarreal MD CHEMISTRY ORDERABLES [facility] [place] [address] * Lipid Panel (Reflex Direct LDL) (12/26/2023 2:08 PM EDT) Pathologist [facility] Cholesterol, Total 273 mg/dL [facility] Comment: Desirable: ? <200 mg/dL Borderline High: 200-239 mg/dL Higher: ?>ke=913 mg/dL Triglyceride 36 mg/dL [facility] Comment: Normal: ?<150 mg/dL Borderline High: 150-199 mg/dL High: ?200-499 mg/dL Very High: ? >mf=184 mg/dL HDL Cholesterol 140 mg/dL [facility] Comment: Females: High Risk: <50 mg/dL Males: High Risk: <40 mg/dL LDL Cholesterol 126 mg/dL [facility] Comment: Desirable: ? <100 mg/dL Above Desirable: 100-129 mg/dL Borderline High: 130-159 mg/dL High: ?160-189 mg/dL Very High: ? >vg=729 mg/dL Lipid Interpretation See Note [facility] Comment: It is [...] ACC/AHA Guidelines (most recently Jenni et al. [facility] 05/30/22): For individuals with atherosclerotic cardiovascular disease (ASCVD)or LDL >zh=181 mg/dL, use a high-intensity statin (40-80 mg [...] CHEMISTRY ORDERABLES Performing Organization Address [facility]/ZIP Co de Phone Number [facility] [place] [address] * Iron and TIBC (12/26/2023 2:08 PM EDT) Iron 94 30 - 150 mcg/dL [facility] TIBC 298 250 - 450 mcg/dL [facility] Iron Saturation 32 20 - 50 % [facility] Blood 12/26/2023 2:08 PM EDT 12/26/2023 2:27 PM EDT Narrative Resulting Agency Comment Spec In Lab Janice Villarreal MD CHEMISTRY ORDERABLES Performing Organization Address [facility] Co de Phone Number [facility] [place] [address] * Ferritin (12/26/2023 2:08 PM EDT) Ferritin 55 11 - 328 ng/mL [facility] Comment: Please note that as of 08/01/2023, the reference intervals for Ferritin have been updated. Blood 12/26/2023 2:08 PM EDT 12/26/2023 2:27 PM EDT Narrative Resulting Agency Comment Spec In Lab Janice Villarreal MD CHEMISTRY ORDERABLES Performing Organization Address City/[facility]/ZIP Co de Phone Number [facility] [place] [address] * A1AT Serum Concentration (12/26/2023 2:08 PM EDT) A1AT 155 90 - 200 mg/dL [facility] Blood 12/26/2023 2:08 PM EDT 12/26/2023 2:27 PM EDT Narrative Resulting Agency Comment Spec In Lab Janice Villarreal MD CHEMISTRY ORDERABLES [facility] [place] [address] * Ceruloplasmin (12/26/2023 2:08 PM EDT) Ceruloplasmin 29.6 16.0 - 45.0 mg/dL [facility] Blood 12/26/2023 2:08 PM EDT 12/26/2023 2:27 PM EDT Narrative Resulting Agency Comment Spec In Lab Janice Villarreal MD CHEMISTRY ORDERABLES Performing Organization Address [facility] Co de Phone Number [facility] [place] [address] documented in this encounter Visit Diagnoses Diagnosis Transaminitis Nonspecific elevation of levels of transaminase or lactic acid dehydrogenase (LDH) documented in this encounter Care Teams Bindery Library Technical Assistant Relationship Specialty Start Date End Date Pradeep Gallardo APRN PCP - General 07/19/10 08/04/24 documented as of this encounter
--- OUTSIDE RECORDS SUMMARY | 2024-09-12 00:57 | XMS_ITS | Encounter Summary ---
[place] [address] Care Team Providers Care Health Club Attendant Name Role Phone Paulina Pradeep Swartz APRN Primary Care Provider [phone] Encounter Details Date Type Department Care Team (Late st Contact Info) Description 12/27/2023 Telephone [place] [address] Abby Baer RN Social History [...] 10:00 AM EDT Office Visit [place] [address] Janice Villarreal MD [facility] [place] [address] documented as of this encounter Visit Diagnoses Not on filedocumented in this encounter Care Teams Health Club Attendant Relationship Specialty Start Date End Date Pradeep Gallardo APRN PCP - General 07/19/10 08/04/24 documented as of this encounter
--- OUTSIDE RECORDS SUMMARY | 2024-09-12 00:57 | XMS_ITS | Encounter Summary ---
Author Organization [facility] [place] [address] Care Team Providers Care Tutoring Assistant Name Role Phone Paulina Pradeep Sheridan SPIVEY Primary Care Provider [phone] Encounter Details Date Type Department Care Team (Late st Contact Info) Description 07/30/2024 9:30 AM EST Office [place] [address] Janice Villarreal MD [facility] [place] [place] [address] Ulcerative pancolitis without complication (Primary Dx); Transaminitis [...] original note were not included. [facility] Division of Gastroenterology and Hepatology [...] dosing. Remicade infusion two weeks ago at [facility] at [facility] -No abdominal pain or distention. No nocturnal symptoms. Energy level feels good for Elsa -No painful rash, joint pains, oral ulcers, vision changes. She did get a new floater last week- went to see Lumber Puller, who provided reassurance, advised it would go away on its own within a few months. No eye pain. -Spending free time doing yoga, walking, visiting friends. 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 -planning a trip to [place] next year! Still figuring out plan. -avoiding opiates. Rarely will take NSAIDs for right arm pain after yoga -No F/chills or weight changes. No N/V. -undergoing workup currently with a known thyroid goiter that she describes has a new mass, and was biopsied at [facility]. First result returned as inconclusive, but sent for genetic testing to determine likelihood this could be a cancer, pending results -recent TSH wnl GI History: Patient transferred care from [place] (history below). Well-controlled ulcerative colitis until April [...] N/A Current Immunizations Name Date Covid-19 Bivalent ([employer]) 12yrs+ ([id number]) 09/05/2022 (4) Tuberculosis risk assessment: -Quantiferon: neg [...] (CTs): 40 minutes spent in chart review, [id number] time and coordination of care with the patient today. Follow up 4 months Janice Villarreal MD Gastroenterology and Hepatology 07/30/2024 9:49 AM Pager # [phone] documented in this encounter Plan of Treatment Upcoming Encounters Date Type Department Care Team (Late st Contact Info) Description 01/28/2025 10:00 AM EDT Office [place] [address] Janice Villarreal MD [facility] [place] [address] documented as of this encounter Procedures Procedure Name Priority Date/Time Associated Diagnosis Comments ORDS - PROVIDER CARE SCAN 09/09/2024 12:00 AM EST documented in this encounter Results * Scan Doc: Ords - Provider Care (09/09/2024 12:00 AM EST) Narrative 09/09/2024 12:00 AM EST Ordered by an unspecified provider. Scanning Provider MEDIA MGR SCAN EXT O RDR/RSLT documented in this encounter Visit Diagnoses Diagnosis Ulcerative pancolitis without complication- Primary Transaminitis Nonspecific elevation of levels of transaminase or lactic acid dehydrogenase (LDH) documented in this encounter Care Teams Tutoring Assistant Relationship Specialty Start Date End Date Pradeep Gallardo APRN PCP - General 07/19/10 08/04/24 documented as of this encounter
--- OUTSIDE RECORDS SUMMARY | 2024-09-12 00:57 | XMS_ITS | Encounter Summary ---
Author Organization [facility] Address [facility] [place] [address] Care Team Providers Care Round Boner Name Role Phone Paulina Pradeep Swartz APRN Primary Care Provider [phone] Reason for Visit * Auth/Cert (Routine) Specialty Diagnoses / Procedures Referred By Contac t Referred To Contact Diagnoses Ulcerative (chronic) pancolitis without complications extensive UC Procedures PRO COLONOSCOPY, DIAGNOSTIC PRO COLONOSCOPY, REMV LESN, SNARE PRO COLONOSCOPY, BIOPSY PRO COLONOSCOPY, REMV LESN, SNARE PRO COLONOSCOPY, BIOPSY COLONOSCOPY, DIAGNOSTIC (WRVU 3.26) James Bobo MD [facility] [place] [address] [facility] Referral ID Status Reason Start Date Expiration Date Visits Re quested Visits Authorized [id number] 1 1 Encounter Details Date Type Department Care Team (Latest Contact Info) Description 10/09/2023 9:45 AM EST - 10/09/2023 12:13 PM [facility] Hospital En[place] [address] James Bobo MD [facility] [place] [address] Discharge Disposition: Home Social History Tobacco Use [...] occurs, please contact your Doctor. Please call [phone] before 8pm Mon-Fri with problems, questions or concerns. If you call after 8pm or on weekends, call the Hospital at [phone] and ask to speak to the Supervisor Stone conceptor and the twisting press operator will contact that person for you. When should you call for help? Call [phone] anytime you think you may need emergency [...] cost to you. Content Version: 12.2 ?? [id number] [employer]. Care instructions adapted under license by [facility]. If you have questions about a medical condition or this instruction, always ask your healthcare professional. [employer] disclaims any warranty or liability for your [...] 10:00 AM EDT Office [place] [address] Janice Villarreal MD [facility] [place] [address] documented as of this encounter Procedures Procedure Name Priority Date/Time Associated Diagnosis Comments SPECIMEN TO PATHOLOGY Routine 10/09/2023 11:06 AM EST SURGICAL PATHOLOGY REPORT Routine 10/09/2023 11:00 AM EST Colonoscopy, Biopsy ([id number]) 10/09/2023 10:42 AM EST Ulcerative pancolitis without complication COLONOSCOPY Routine 10/09/2023 9:59 AM EST documented in this encounter Results * Specimen to Pathology (10/09/2023 11:06 AM EST) AP Specimen 10/09/2023 11:0 6 AM EST 10/09/2023 11:06 AM EST Narrative [facility] - 10/09/2023 11:06 AM EST Specimen requisition ordered. ??Separate Pathology report to follow James Bobo MD PATHOLOGY/CYTOLOGY O RDERABLES [facility] [place] [address] * Surgical Pathology Report (10/09/2023 11:00 AM EST) Final Diagnosis [id number] ? Location: 4T; EA09; A The signing pathologist has (i) examined the relevant preparation(s) for the specimen(s) and (ii) rendered or confirmed the diagnosis(es). . ?Surgical Pathology DIAGNOSIS A - Random colon r/o dysplasia, biopsy: - ??Colonic mucosa with mild architectural disarray, negative for dysplasia. CR-PX Electronically signed by: ?[place] VENTURA, Escobar Verified: ??10/17/2023 15:49 ??Pathologist Performed at: ??-[facility] Dept. of Pathology, [place] [address] Community Services Officer: Bird Jarvis MD, FCAP, ??CLIA Certificate: [id number] SPECIMEN(S) SUBMITTED A - random colon r/o dysplasia, biopsy (1) CLINICAL INFORMATION 62-year-old female with history of colitis, normal-appearing colon SPECIMEN PROCESSING A - Labeled/Fixative: Random colon rule out dysplasia, formalin. Quantity/Size: Multiple, averaging 0.3 cm. Tissue Description: Soft, pink tissues. Sections/Processi ng: Submitted in toto ??in 3 cassettes labeled A1-A3. ??sns 10/17/2023 3:49 PM EST [facility] GI Biopsy 10/09/2023 11:0 0 AM EST 10/09/2023 11:00 AM EST James Bobo MD PATHOLOGY/CYTOLOGY O RDERABLES [facility] [place] [id number] [facility] [place] [address] * COLONOSCOPY (10/09/2023 9:59 AM EST) COLONOSCOPY [facility] Endoscopy Procedure Date: 10/09/2023 9:59 AM ? Patient Name: Elsa Lujan ? Date of : 1960 ? Age: 62 ? Order #: [id number] ? Instrument Name: [id number] ? Procedure: ? Colonoscopy Indications: ? Pt [...] preparation was evaluated ? using the BBPS ([place] Bowel ? Preparation Scale) with scores of: [...] RN) documented in this encounter Care Teams Round Boner Relationship Specialty Start Date End Date Pradeep Gallardo APRN PCP - General 07/19/10 08/04/24 documented as of this encounter
--- OUTSIDE RECORDS SUMMARY | 2024-09-12 00:57 | XMS_ITS | Encounter Summary ---
Author Organization [place] [address] Care Team Providers Care Rn Acls Name Role Phone Paulina Pradeep Swartz APRN Primary Care Provider [phone] Reason for Visit * Auth/Cert (Routine) Specialty Diagnoses / Procedures Referred By Contac t Referred To Contact Diagnoses Ulcerative (chronic) pancolitis without complications extensive UC Procedures PRO COLONOSCOPY, DIAGNOSTIC PRO COLONOSCOPY, REMV LESN, SNARE PRO COLONOSCOPY, BIOPSY PRO COLONOSCOPY, REMV LESN, SNARE PRO COLONOSCOPY, BIOPSY COLONOSCOPY, DIAGNOSTIC (WRVU 3.26) James Bobo MD [facility] [place] [address] [facility] Referral ID Status Reason Start Date Expiration Date Visits Re quested Visits Authorized [id number] 1 1 Encounter Details Date Type Department Care Team (Late st Contact Info) Description 10/09/2023 11:00 AM EST - 10/09/2023 12:00 PM EST [place] [address] James Bobo MD [facility] [place] [address] COLONOSCOPY FLEXIBLE, WITH BX (WRVU 3.56) Social [...] occurs, please contact your Doctor. Please call [phone] before 8pm Mon-Fri with problems, questions or concerns. If you call after 8pm or on weekends, call the Hospital at [phone] and ask to speak to the Bulk Plant Manager regional marketing director and the bottle machine operator will contact that person for you. When should you call for help? Call [phone] anytime you think you may need emergency [...] After Visit Summary and more online at [email or web address] If you would like to provide feedback about your hospital experience, please call the Office of Patient and Family Relations at . If you have received this After Visit Summary in error, please immediately return it in person to the department, or notify the [facility] Privacy Office by calling toll free at between the hours of 8AM and 5PM to arrange for our retrieval of the documents at no cost to you. Content Version: 12.2 ?? [id number] [employer] [place]. Care instructions adapted under license by [facility]. If you have questions about a medical condition or this instruction, always ask your healthcare professional. [employer] [place] disclaims any warranty or liability for your [...] 10:00 AM EDT Office [place] [address] Janice Villarreal MD [facility] [place] [address] documented as of this encounter Procedures Procedure Name Priority Date/Time Associated Diagnosis Comments SPECIMEN TO PATHOLOGY Routine 10/09/2023 11:06 AM EST SURGICAL PATHOLOGY REPORT Routine 10/09/2023 11:00 AM EST Colonoscopy, Biopsy ([id number]) 10/09/2023 10:42 AM EST Ulcerative pancolitis without complication COLONOSCOPY Routine 10/09/2023 9:59 AM EST documented in this encounter Results * Specimen to Pathology (10/09/2023 11:06 AM EST) AP Specimen 10/09/2023 11:0 6 AM EST 10/09/2023 11:06 AM EST Narrative [facility] - 10/09/2023 11:06 AM EST Specimen requisition ordered. ??Separate Pathology report to follow James Bobo MD PATHOLOGY/CYTOLOGY O RDERAJOSE [facility] [place] [address] * Surgical Pathology Report (10/09/2023 11:00 AM EST) Final Diagnosis [id number] ? Location: 4T; EA09; A The signing pathologist has (i) examined the relevant preparation(s) for the specimen(s) and (ii) rendered or confirmed the diagnosis(es). . ?Surgical Pathology DIAGNOSIS A - Random colon r/o dysplasia, biopsy: - ??Colonic mucosa with mild architectural disarray, negative for dysplasia. CR-PX Electronically signed by: ?[place] VENTURA, Escobar Verified: ??10/17/2023 15:49 ??Pathologist Performed at: ??-[facility] Dept. of Pathology, [place] [address] Mainframe Systems Administrator: Bird Jarvis MD, FCAP, ??CLIA Certificate: [id number] SPECIMEN(S) SUBMITTED A - random colon r/o dysplasia, biopsy (1) CLINICAL INFORMATION 62-year-old female with history of colitis, normal-appearing colon SPECIMEN PROCESSING A - Labeled/Fixative: Random colon rule out dysplasia, formalin. Quantity/Size: Multiple, averaging 0.3 cm. Tissue Description: Soft, pink tissues. Sections/Processi ng: Submitted in toto ??in 3 cassettes labeled A1-A3. ??sns 10/17/2023 3:49 PM EST [facility] GI Biopsy 10/09/2023 11:0 0 AM EST 10/09/2023 11:00 AM EST James Bobo MD PATHOLOGY/CYTOLOGY O RDERABLES [facility] [place] [id number] [facility] [place] [address] * COLONOSCOPY (10/09/2023 9:59 AM EST) COLONOSCOPY [facility] Endoscopy Procedure Date: 10/09/2023 9:59 AM ? Patient Name: Elsa Lujan ? Date of : 1960 ? Age: 62 ? Order #: [id number] ? Instrument Name: [id number] ? Procedure: ? Colonoscopy Indications: ? Pt [...] preparation was evaluated ? using the BBPS ([place] Bowel ? Preparation Scale) with scores of: [...] RN) documented in this encounter Care Teams Rn Acls Relationship Specialty Start Date End Date Pradeep Gallardo APRN PCP - General 07/19/10 08/04/24 documented as of this encounter
--- OUTSIDE RECORDS SUMMARY | 2024-09-12 00:57 | XMS_ITS | Encounter Summary ---
Author Organization [facility] [place] [address] Care Team Providers Care Collar Tacker Name Role Phone Pradeep Gallardo PATRIC Primary Care Provider Encounter Details Date Type Department Care Team (Late Contact Info) Description 08/23/2023 Telephone [place] [address] Jeanette Franco RN Social History Tobacco Use [...] 08/23/2023 12:37 PM EST Received VM from [facility], Due for new orders and PA for Remicade. Based on chart review, further liver work up is pending. Will hold until dosing for next infusion can be confirmed. documented in this encounter Plan of Treatment Upcoming Encounters Date Type Department Care Team (Late Contact Info) Description 01/28/2025 10:00 AM EDT Office [place] [address] Janice Villarreal MD [facility] [place] [address] documented as of this encounter Visit Diagnoses Not on filedocumented in this encounter Care Teams Collar Tacker Relationship Specialty Start Date End Date Pradeep Gallardo APRN PCP - General 07/19/10 08/04/24 documented as of this encounter
--- OUTSIDE RECORDS SUMMARY | 2024-09-12 00:58 | XMS_ITS | Encounter Summary ---
Author Organization [place] [address] Care Team Providers Care Spear Fisher Name Role Phone Paulina Pradeep Sheridan SPIVEY Primary Care Provider Encounter Details Date Type Department Care Team (Late Contact Info) Description 04/03/2023 Telephone [place] [phone] Jenise Mooney Social History Tobacco Use Types [...] 10:00 AM EDT Office [place] [address] Janice Villarreal MD [facility] [place] [address] documented as of this encounter Visit Diagnoses Not on filedocumented in this encounter Care Teams Spear Fisher Relationship Specialty Start Date End Date Pradeep Gallardo APRN PCP - General 07/19/10 08/04/24 documented as of this encounter
--- OUTSIDE RECORDS SUMMARY | 2024-09-12 00:58 | XMS_ITS | Encounter Summary ---
[place] [address] Care Team Providers Care Dub Room Engineer Name Role Phone Pradeep Gallardo APRN Primary Care Provider [phone] Reason for Referral * Consultation (Urgent) - Closed Specialty Diagnoses / Procedures Referred By Contchung t Referred To Contact Gastroenterology Diagnoses Ulcerative colitis without complications, unspecified location w/in 2-4 WEEKS -Ulcerative colitis Alina Mackenzie APRN [address] [place] [address] [facility] [place] [address] [address] Referral ID Status Reason Start Date Expiration Date V isits Requested Visits Authorized [id number] Closed Consult, Test & Treat PCP Updated and/or Approved 08/01/2022 08/01/2023 6 6 Encounter Details Date Type Department Care Team (Late st Contact Info) Description 08/01/2022 Transcribe Orders eDH Incoming Referrals [phone] Alina Mackenzie APRN [address] [place] [address] Ulcerative colitis without complications, unspecified [...] 10:00 AM EDT Office [place] [address] Janice Villarreal MD [facility] [place] [address] Scheduled Referrals Name Type Priority Associated Diagnoses Order Schedule Referral to Gastroenterology Outpatient Referral Urgent Ulcerative colitis without complications, unspecified location Ordered: 08/01/2022 documented as of this encounter Visit Diagnoses Diagnosis Ulcerative colitis without complications, unspecified location documented in this encounter Care Teams Dub Room Engineer Relationship Specialty Start Date End Date Pradeep Gallardo APRN PCP - General 07/19/10 08/04/24 documented as of this encounter
--- OUTSIDE RECORDS SUMMARY | 2024-09-12 00:58 | XMS_ITS | Encounter Summary ---
[place] [address] Care Team Providers Care Hyperbaric Technologist Name Role Phone Pradeep Gallardo APRN Primary Care Provider Reason for Visit * Reason Onset Date Comments Other 04/13/2023 Patient Navigati on Encounter Details Date Type Department Care Team (Late st Contact Info) Description 04/13/2023 Telephone [place] [phone] Mandi Manzanares Other (Patient Navigation/) Social History [...] Villarreal who is out until 05/01/23. This radio script writer found a request from [facility] dated 03/26/23 and filed in the Media tab on 03/28/23. It was a request for records and a statement from a provider that they wished to be sent by 04/10/23. PLAN: This radio script writer let the patient know that this radio script writer is inquiring about whether the clinicians [...] 10:00 AM EDT Office [place] [address] Janice Villarreal MD [facility] [place] [address] documented as of this encounter Visit Diagnoses Not on filedocumented in this encounter Care Teams Hyperbaric Technologist Relationship Specialty Start Date End Date Pradeep Gallardo APRN PCP - General 07/19/10 08/04/24 documented as of this encounter
--- OUTSIDE RECORDS SUMMARY | 2024-09-12 00:58 | XMS_ITS | Encounter Summary ---
Author Organization [facility] Address [facility] [place] [address] Care Team Providers Care Foam Charger Name Role Phone Pradeep Gallardo APRN Primary [...] 10:00 AM EDT Office [place] [address] Janice Villarreal MD [facility] [place] [address] documented as of this encounter Visit Diagnoses Not on filedocumented in this encounter Care Teams Foam Charger Relationship Specialty Start Date End Date Pradeep Gallardo APRN PCP - General 07/19/10 08/04/24 documented as of this encounter
--- OUTSIDE RECORDS SUMMARY | 2024-09-12 00:58 | XMS_ITS | Encounter Summary ---
Author Organization [facility] [place] [address] Care Team Providers Care Instrument Repairer Helper Name Role Phone Pradeep Gallardo APRN Primary Care Provider Encounter Details Date Type Department Care Team (Late st Contact Info) Description 10/06/2022 Orders Only [place] [address] Janice Villarreal MD [facility] [place] [address] Ulcerative pancolitis with complication Social History Tobacco [...] 10:00 AM EDT Office Visit [place] [address] Janice Villarreal MD [facility] [place] [address] documented as of this encounter Visit Diagnoses Diagnosis Ulcerative pancolitis with complication documented in this encounter Care Teams Instrument Repairer Helper Relationship Specialty Start Date End Date Pradeep Gallardo APRN PCP - General 07/19/10 08/04/24 documented as of this encounter
--- OUTSIDE RECORDS SUMMARY | 2024-09-12 00:58 | XMS_ITS | Encounter Summary ---
Author Organization [facility] [place] [address] Care Team Providers Care Block Cleaner Name Role Phone Pradeep Gallardo APRN Primary [...] 10:00 AM EDT Office [place] [address] Janice Villarreal MD [facility] DR [place] [address] documented as of this encounter Visit Diagnoses Not on filedocumented in this encounter Additional Health Concerns Infection Onset Date Last Indicated Resolved Time Rule Out C. difficile 08/09/2022 08/09/20222021 2:14 PM EST documented as of this encounter Care Teams Block Cleaner Relationship Specialty Start Date End Date Pradeep Gallardo APRN PCP - General 07/19/10 08/04/24 documented as of this encounter
--- OUTSIDE RECORDS SUMMARY | 2024-09-12 00:58 | XMS_ITS | Encounter Summary ---
Author Organization [facility] [place] [address] Care Team Providers Care General Dentist Name Role Phone Pradeep Gallardo APRN Primary [...] 10:00 AM EDT Office [place] [address] Janice Villarreal MD [facility] [place] [address] documented as of this encounter Visit Diagnoses Not on filedocumented in this encounter Care Teams General Dentist Relationship Specialty Start Date End Date Pradeep Gallardo APRN PCP - General 07/19/10 08/04/24 documented as of this encounter
--- OUTSIDE RECORDS SUMMARY | 2024-09-12 00:58 | XMS_ITS | Encounter Summary ---
Author Organization [facility] [place] [address] Care Team Providers Care Activities Specialist Name Role Phone Pradeep Gallardo APRN Primary Care Provider [phone] Encounter Details Date Type Department Care Team (Late st Contact Info) Description 08/14/2022 Telephone [place] [address] Jay Tom RN Social History [...] network outpatient setting Will send orders to [facility] once signed by Dr. Orellana and plan for infusion there. * Telephone Encounter - Jeanette Franco RN - 08/15/2022 10:05 AM EST INEZ from Cecy at [facility], Elsa contacted them to see if she could get her week 2 infusions set upwith them. Left VM for Elsa that an urgent authorization was approved to be at [facility] and we are sending orders. Requested that for at least the induction doses that Elsa gets these done at [facility] so she can stay on track with induction. Could consider changing to [facility] once on maintenance. Requested she called the office back to confirm this plan. * Telephone Encounter - Jay Tom RN - 08/14/2022 3:03 PM EST Approved for 12 months through 08/14/23 Will fax orders to [facility] once signed by Dr. Orellana. Next infusion due 08/25/22 * Telephone Encounter - Jay Tom RN - 08/14/2022 8:52 AM EST Prior Authorization Facility: [facility] TIN: [id number] Medication: Remicade J-code: [id number] Dosage: 10 mg/kg Frequency & Route: IV week 2, 6, then every 8 Insurance & Phone #: [employer] [facility] ID #: [id number] Trialed (dosage, frequency): mesalamine, budesonide (rashes), prednisone, Entyvio (hives 07/05/22 - 07/19/22) Diagnosis/ICD-10: UC K51.90 Notes:Received first dose as inpatient on 08/11 Submitted marked urgent via CMM Pending Roche: [id number] KATE documented in this encounter Plan of Treatment Upcoming Encounters Date Type Department Care Team (Late st Contact Info) Description 01/28/2025 10:00 AM EDT Office [place] [address] Janice Villarreal MD [facility] [place] [address] documented as of this encounter Visit Diagnoses Not on filedocumented in this encounter Care Teams Activities Specialist Relationship Specialty Start Date End Date Pradeep Gallardo APRN PCP - General 07/19/10 08/04/24 documented as of this encounter
--- OUTSIDE RECORDS SUMMARY | 2024-09-12 00:58 | XMS_ITS | Encounter Summary ---
[place] [address] Care Team Providers Care Splitting Machine Tender Name Role Phone Pradeep Gallardo APRN Primary Care Provider [phone] Reason for Visit * Reason Onset Date Comments Other 03/23/2023 Patient Navigati on Encounter Details Date Type Department Care Team (Late st Contact Info) Description 03/23/2023 Telephone [place] [phone] Mandi Manzanares Other (Patient Navigation/) Social History [...] PM EDT Called the patient after this commercial underwriter was notified of a voicemail message left [...] well enough to work again. PLAN: This commercial underwriter will pass this information along to the clinic nursing staff and for the provider(s) covering for Dr. Villarreal until May 01. The patient was asked to get in touch if she hears more from [facility] regarding any upcoming deadlines in regards to her appeal. Mandi Manzanares MA Patient Navigator Section of Gastroenterology & Hepatology documented in this encounter Plan of Treatment Upcoming Encounters Date Type Department Care Team (Late st Contact Info) Description 01/28/2025 10:00 AM EDT Office [place] [address] Janice Villarreal MD [facility] [place] [address] documented as of this encounter Visit Diagnoses Not on filedocumented in this encounter Care Teams Splitting Machine Tender Relationship Specialty Start Date End Date Pradeep Gallardo APRN PCP - General 07/19/10 08/04/24 documented as of this encounter
--- OUTSIDE RECORDS SUMMARY | 2024-09-12 00:58 | XMS_ITS | Encounter Summary ---
Author Organization [facility] [place] [address] Care Team Providers Care Social Worker Psychiatric Name Role Phone Pradeep Gallardo APRN Primary Care Provider [phone] Reason for Referral * Consultation (Routine) - Closed Specialty Diagnoses / Procedures Referred By Contac t Referred To Contact Dermatology Diagnoses Ulcerative pancolitis with other complication Janice Villarreal MD [facility] [place] [address] [facility] Dermatology [address] [place] [address] Referral ID Status Reason Start Date Expiration Date V isits Requested Visits Authorized [id number] Closed Consult, Test & Treat 08/31/2022 08/31/2023 1 1 Reason for Visit * Consultation (Urgent) - Closed Specialty Diagnoses / Procedures Referred By Contac t Referred To Contact Gastroenterology Diagnoses Ulcerative colitis without complications, unspecified location w/in 2-4 WEEKS -Ulcerative colitis Alina Mackenzie APRN [address] [place] [address] [facility] Gastro [address] [place] [address] Referral ID Status Reason Start Date Expiration Date V isits Requested Visits Authorized [id number] Closed Consult, Test & Treat PCP Updated and/or Approved 08/01/2022 08/01/2023 6 6 Encounter Details Date Type Department Care Team (Late st Contact Info) Description 08/31/2022 11:30 AM EST Office Visit Gastroenterology at [facility] [place] [address] Janice Villarreal MD [facility] [place] [address] Ulcerative pancolitis with other complication Social History [...] original note were not included. 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 Patient is transferring care from [place], where she has received her care (history [...] iron EOD. Hoping to make trip to [place] late November. Accepting award in [place] in January. IBD History: - diagnosed with [...] Villarreal MD Fellow in Gastroenterology and [place] [address] P: [phone] F: [phone] CC Aria Thompson MD [address] [place] [address] documented in this encounter Plan of Treatment Upcoming Encounters Date Type Department Care Team (Late st Contact Info) Description 01/28/2025 10:00 AM EDT Office [place] [address] Janice Villarreal MD [facility] [place] [address] Scheduled Referrals Name Type Priority Associated Diagnoses Orde r Schedule Referral to Dermatology Outpatient Referral Routine Ulcerative pancolitis with other complication Ordered: 08/31/2022 documented as of this encounter Visit Diagnoses Diagnosis Ulcerative pancolitis with other complication documented in this encounter Care Teams Social Worker Psychiatric Relationship Specialty Start Date End Date Pradeep Gallardo APRN PCP - General 07/19/10 08/04/24 documented as of this encounter
--- OUTSIDE RECORDS SUMMARY | 2024-09-12 00:58 | XMS_ITS | Encounter Summary ---
Author Organization [facility] [place] [address] Care Team Providers Care Resource Specialist Teacher Name Role Phone Pradeep Gallardo APRN Primary Care Provider [phone] Reason for Visit * Reason Comments Medication Refill Encounter Details Date Type Department Care Team (Late Contact Info) Description 09/17/2022 Refill [place] [phone] Marc Cunningham MD [facility] GENERAL [place] [address] Social History Tobacco Use Types Packs/Day Years [...] 10:00 AM EDT Office [place] [phone] Janice Villarreal MD [facility] [place] [address] documented as of this encounter Visit Diagnoses Not on filedocumented in this encounter Care Teams Resource Specialist Teacher Relationship Specialty Start Date End Date Pradeep Gallardo APRN PCP - General 07/19/10 08/04/24 documented as of this encounter
--- OUTSIDE RECORDS SUMMARY | 2024-09-12 00:58 | XMS_ITS | Encounter Summary ---
Author Organization [facility] [place] [address] Care Team Providers Care Transcription Name Role Phone Paulina Pradeep Sheridan SPIVEY Primary Care Provider Encounter Details Date Type Department Care Team (Late st Contact Info) Description 08/14/2022 Telephone Family Medicine at [facility] [address] [place] [phone] Audie Daugherty MA Social History Tobacco Use [...] 10:00 AM EDT Office [place] [address] Janice Villarreal MD [facility] [place] [address] documented as of this encounter Visit Diagnoses Not on filedocumented in this encounter Care Teams Transcription Relationship Specialty Start Date End Date Pradeep Gallardo APRN PCP - General 07/19/10 08/04/24 documented as of this encounter
--- OUTSIDE RECORDS SUMMARY | 2024-09-12 00:58 | XMS_ITS | Encounter Summary ---
Author Organization [facility] [place] [address] Care Team Providers Care Diver Tender Name Role Phone Paulina Pradeep S PATRIC Primary Care Provider Encounter Details Date Type Department Care Team (Late Contact Info) Description 04/25/2023 Telephone [place] [address] Shayla Sierra RN Social History [...] 10:00 AM EDT Office Visit [place] [phone] Janice Villarreal MD [facility] DR GASTROENTEROLOGY [place], [place] [phone] documented as of this encounter Visit Diagnoses Not on filedocumented in this encounter Care Teams Diver Tender Relationship Specialty Start Date End Date Pradeep Gallardo APRN PCP - General 07/19/10 08/04/24 documented as of this encounter
--- OUTSIDE RECORDS SUMMARY | 2024-09-12 00:58 | XMS_ITS | Encounter Summary ---
Author Organization [place] [address] Care Team Providers Care Digital Marketing Officer Name Role Phone Paulina Pradeep Swartz APRN Primary Care Provider [phone] Reason for Visit * Consultation (Routine) - Closed Specialty Diagnoses / Procedures Referred By Merari rosario Referred To Contact Endocrinology Diagnoses Multinodular goiter SECOND OPINION FOR MULTINODULAR GOITER- NOW WITH ARGER LEFT LOBE NODULE Procedures CONSULT AND TREAT Aria Thompson MD [address] [place] [address] [facility] Endocrinology [address] [place] [phone] Referral ID Status Reason Start Date Expiration Date Visits Re quested Visits Authorized [id number] Closed 02/05/2017 02/05/2018 1 1 Encounter Details Date Type Department Care Team (Late st Contact Info) Description 03/23/2017 10:00 AM EDT Office [place] [address] Katie Almanza MD Multinodular goiter [...] benign,so it is 99% certain that her RJX-vocsvlqq-fjdofip thyroid nodule is benign. All the same, [...] a standard gauge needle. KATIE ALMANZA MD Building Trades Instructortake off man Section of Endocrinology [facility] * Katie Almanza MD - 03/23/2017 10:00 [...] of brown non-viscous fluid. Katie Almanza MD Building Trades Instructortake off man Section of Endocrinology [facility] * Katie Almanza MD - 03/23/2017 10:00 [...] present during the procedure. Katie Almanza MD Building Trades Instructortake off man Section of Endocrinology documented in this encounter Plan of Treatment Upcoming Encounters Date Type Department Care Team (Late st Contact Info) Description 01/28/2025 10:00 AM EDT Office [place] [address] Janice Villarreal MD [facility] [place] [place] [address] documented as of this encounter Visit Diagnoses Diagnosis Multinodular goiter Nontoxic multinodular goiter documented in this encounter Care Teams Digital Marketing Officer Relationship Specialty Start Date End Date Pradeep Gallardo APRN PCP - General 07/19/10 08/04/24 documented as of this encounter
--- OUTSIDE RECORDS SUMMARY | 2024-09-12 00:58 | XMS_ITS | Encounter Summary ---
Author Organization [facility] Address [facility] [place] [address] Care Team Providers Care Wharf Laborer Name Role Phone Pradeep Gallardo APRN Primary Care Provider [phone] Encounter Details Date Type Department Care Team (Latest Contact Info) Description 12/01/2016 - 12/01/2016 11:59 PM EDT Hospital Encounter Radiology Library [place] [place] [phone] Pradeep Gallardo APRN [address] [place] [address] [address] [place] [address] Pain Discharge Disposition: Home Social History Tobacco [...] 10:00 AM EDT Office Visit Gastroenterology at [place] [place] [phone] Janice Villarreal MD [facility] [place] [address] documented as of this encounter Procedures Procedure Name Priority Date/Time Associated Diagnosis Comments FILM LIBRARY STORAGE ONLY MR SPINE Routine 12/01/2016 12:00 AM EDT Pain documented in this encounter Results * Film Library- Storage Only MR Spine (12/01/2016 12:00 AM EDT) Narrative RICK MONET - 02/01/2017 3:59 PM EDT This exam is for storage only and is auto-finalizing. Pradeep Gallardo APRN [facility] FILM LIBRARY ORD ERABLES Performing Organization Address City/State/[facility] Co de Phone Number [place], [place] documented in this encounter Visit Diagnoses Diagnosis Pain Generalized pain documented in this encounter Care Teams Wharf Laborer Relationship Specialty Start Date End Date Pradeep Gallardo APRN PCP - General 07/19/10 08/04/24 documented as of this encounter
--- OUTSIDE RECORDS SUMMARY | 2024-09-12 00:58 | XMS_ITS | Encounter Summary ---
Author Organization [facility] Address [facility] [place] [address] Care Team Providers Care Director Of Community Life Name Role Phone Pradeep Gallardo APRN Primary Care Provider Encounter Details Date Type Department Care Team (Late st Contact Info) Description 05/02/2023 Telephone [place] [phone] Janice Villarreal MD [facility] [place] [address] Social History Tobacco Use Types Packs/Day Years [...] and Hepatology 05/02/2023 2:43 PM Pager # [phone] documented in this encounter Plan of Treatment Upcoming Encounters Date Type Department Care Team (Late st Contact Info) Description 01/28/2025 10:00 AM EDT Office [place] [phone] Janice Villarreal MD [facility] [place] [address] documented as of this encounter Results * [...] ?are greater than 5.0 mcg/mL, clinically relevant ?rmsirdgcmf-uk-ac fliximab are unlikely and reflex testing ?will not be performed. ? ---ADDITIONAL INFORMATION------- ?This test was developed and its performance characteristics ?determined by [facility] in a manner consistent with CLIA ?requirements. This test has not been cleared or approved by ?the U.S. Food and Drug Administration. ?Test Performed by: ?[facility] ?[address] [id number] ?Sleep Technician: Basil Retana M.D. Ph.D.; CLIA# [id number]) [facility] Blood 06/13/2023 12:1 1 PM EDT 06/13/2023 3:13 PM EDT Narrative Resulting Agency Comment Spec In Lab Janice Villarreal MD LAB SEND OUT ORDERAB LES [facility] [place] [address] documented in this encounter Visit Diagnoses Diagnosis Ulcerative pancolitis with complication documented in this encounter Care Teams Director Of Community Life Relationship Specialty Start Date End Date Pradeep Gallardo APRN PCP - General 07/19/10 08/04/24 documented as of this encounter
--- OUTSIDE RECORDS SUMMARY | 2024-09-12 00:58 | XMS_ITS | Encounter Summary ---
Author Organization [facility] [place] [address] Care Team Providers Care Director Of Community Life Name Role Phone Paulina Pradeep Swartz APRN Primary Care Provider Encounter Details Date Type Department Care Team (Late st Contact Info) Description 08/18/2022 Telephone [place] [phone] Jeanette Franco RN Social History Tobacco Use [...] her a code to sign up for [facility] documented in this encounter Plan of Treatment Upcoming Encounters Date Type Department Care Team (Late st Contact Info) Description 01/28/2025 10:00 AM EDT Office [place] [address] Janice Villarreal MD [facility] [place] [address] documented as of this encounter Visit Diagnoses Not on filedocumented in this encounter Care Teams Director Of Community Life Relationship Specialty Start Date End Date Pradeep Gallardo APRN PCP - General 07/19/10 08/04/24 documented as of this encounter
--- OUTSIDE RECORDS SUMMARY | 2024-09-12 00:58 | XMS_ITS | Encounter Summary ---
Author Organization [facility] [place] [address] Care Team Providers Care Cell Tender Name Role Phone Pradeep Gallardo APRN Primary Care Provider Reason for Visit * Reason Comments Abdominal Pain Diarrhea * Auth/Cert (Routine) Specialty Diagnoses / Procedures Referred By Contac t Referred To Contact Diagnoses Ulcerative colitis Procedures emerg ipi [place] [address] [facility] Referral ID Status Reason Start Date Expiration Date Visits Re quested Visits Authorized [id number] 1 1 Encounter Details Date Type Department Care Team (Latest Contact Info) Description 08/09/2022 9:58 AM EST - 08/14/2022 2:38 PM EST Hospital Encounter Card[facility] [place] [address] Basil De La Rosa MD [facility] [place] [address] [place] [address] Tyler Esqueda MD Ulcerative colitis (Primary Dx) [...] Elsa Londono Patient Age: 61 y.o. Language: Ethiopian Race: White Ethnicity: Not nor Admit date: 08/09/2022 Discharge date and time: 08/14/2022 Attending Physician: Tyler Esqueda MD Discharge Physician: Tyler Esqueda MD PCP: Aria Thompson MD ([phone]) Chief Complaint Patient presents with ??? Abdominal [...] started on PPI and PJP prophylaxis given fpc steroid use. #Iron deficiency anemia # Suspected [...] in the last 7068 hours. Invalid input(s): [id number] No results for input(s): HA1C in the last 7068 hours. Lipids: Heme: No results for input(s): LDH, HAPTOGLOBIN, URICACID in the last 168 hours. ABG (Arterial Blood Gas): No results found for: PHART, PO2ART, BSY9JZD, WJA6DKB VBG (Venous Blood Gas): No results for input(s): PHVEN, CUR3FXB, PO2VEN, GZI5IPX, BEVEN, VVV0JKX in the last 72 hours. EKG: No results found for: DIAGLINE, QTCCALC Vascular: No results found for: VBTEXTRPT Microbiology: Microbiology Results (Last 30 days) Procedure Component Value Units Date/Time C. Difficile Screen [[id number]] Collected: 08/09/22 191 Lab Status: Final result [...] Precautions are still required. Stool Culture Screen ([facility]) [[id number]] Collected: 08/09/221917 Lab Status: Final result Specimen: Stool Updated: 08/12/22714 Fecal Lactoferrin [[id number]] (Abnormal) Collected: 08/09/221917 Lab Status: Final result Specimen: Stool Updated: 08/09/22 2149 Stool WBC Positive Stool culture [[id number]] Collected: 08/09/221917 Lab Status: Final result Specimen: Stool Updated: 08/12/22 07 Stool Culture No enteric pathogens isolated Campylobacter Antigen [[id number]] Collected: 08/09/221917 Lab Status: Final result Specimen: Stool Updated: 08/10/22 022 Campylobacter Ag Immunoassay Negative for Campylobacter Antigen Shiga Toxin Detection [[id number]] Collected: 08/09/221917 Lab Status: Final result Specimen: [...] Center 09/25/2022 4:00 PM Joanne Montague APRN [facility] [place] Appointment: You have a hospital follow up appointment with your primary care provider, Dr. Aria Thompson, Tuesday August 23, 2022 11:30 Your Inpatient Medical Team at [facility] Name(s) of your inpatient provider(s): Tyler Esqueda MD Your Primary Care Provider: Aria Thompson MD [phone] For questions regarding this document or issues relating to this hospitalization on the Medical Service, please contact your inpatient physician through the [facility] Professor Of Rhetoric . Issues afterhours and on weekends will be handled by the Hospitalist staff on-call. General Instructions None Future Appointments and Orders Future Appointments and Orders Future Appointments Provider Department Dept Phone 09/25/2022 4:00 PM Joanne Montague APRN Gastroenterology at [facility] Arrive at: Vocational Rehabilitation Counselor Area [phone] Provider Contact Information: Aria Thompson MD [address] [place] [address] Discharge References/Attachments: Discharge References/Attachments None documented in [...] Center 09/25/2022 4:00 PM Joanne Montague APRN [facility] Appointment: You have a hospital follow up appointment with your primary care provider, Dr. Aria Thompson, Tuesday August 23, 2022 11:30 Your Inpatient Medical Team at [facility] Name(s) of your inpatient provider(s): Tyler Esqueda MD Your Primary Care Provider: Aria Thompson MD [phone] For questions regarding this document or issues relating to this hospitalization on the Medical Service, please contact your inpatient physician through the [facility] Professor Of Rhetoric . Issues afterhours and on weekends will [...] spent >30 minutes (Day of Discharge Code 24295) involved in the final examination of the [...] encounter: 64 kg (141 lb 1.5 oz). [place] Body Weight: WNL Usual Body Weight: see [...] foods, will send Glucerjerry. Estimated needs: Calories: 2312-4882 (22-25 kcal/kg) Protein: 76 grams (1.2g/kg) Nutrition Focused Physical Exam (NFPE): Not performed Protein-calorie Malnutrition: Not identified (DANIELLE Soni J Parenteral Enteral Nutr. 2011; 36(3): 273-83) Nutrition to continue to follow up while inpatient Daksha Bhatti RD Pager #:[phone] * Janice Villarreal - 08/14/2022 7:00 AM [...] M.D. Fellow in Gastroenterology and Hepatology Pager #[phone] 08/13/2022 Associated attestation - Jony Newberry MD [...] M.D. Fellow in Gastroenterology and Hepatology Pager #[phone] 08/12/2022 ATTENDING ATTESTATION: I have seen and [...] documented. Hermila East MD Gastroenterology attending Pager [phone] * Marc Cunningham MD - 08/13/2022 7:27 AM EST Inpatient Hospital Medicine Progress Note Patient Name: ELSA LONDONO Date of : 1960 Age: 61 y.o. Hospital Admit Date: 08/09/2022 Hospital Day: 4 Inpatient Attending: Tyler Esqueda MD PCP: Derrick Mir MD ([phone]) Chief Complaint Patient presents with ??? Abdominal [...] in the last 7068 hours. Invalid input(s): [id number] No results for input(s): HA1C in the last 7068 hours. Lipids: Heme: No results for input(s): LDH, HAPTOGLOBIN, URICACID in the last 168 hours. ABG (Arterial Blood Gas): No results found for: PHART, PO2ART, TLB9KUN, SGM9RCS VBG (Venous Blood Gas): No results for input(s): PHVEN, DPI1UOV, PO2VEN, KCC7IXK, BEVEN, YGA2AJD in the last 72 hours. EKG: No [...] acetaminophen, ondansetron OR ondansetron ASSESSMENT and PLAN: rboert Londono is a 61 y.o. female with [...] - Continue atovaquone for PJP prophylaxis given long term care pharmacist steroid use - refused lovenox, on SCD [...] M.D. Fellow in Gastroenterology and Hepatology Pager #[phone] 08/11/2022 ATTENDING ATTESTATION: I have seen and [...] documented. Hermila East MD Gastroenterology attending Pager [phone] * Jenise Tijerina MD - 08/12/2022 8:28 AM EST Inpatient Hospital Medicine Progress Note Patient Name: ELSA LONDONO Date of : 1960 Age: 61 y.o. Hospital Admit Date: 08/09/2022 Hospital Day: 3 Inpatient Attending: Tyler Esqueda MD PCP: Derrick Mir MD ([phone]) Chief Complaint Patient presents with ??? Abdominal [...] in the last 7068 hours. Invalid input(s): [id number] No results for input(s): HA1C in the last 7068 hours. Lipids: Heme: No results for input(s): LDH, HAPTOGLOBIN, URICACID in the last 168 hours. ABG (Arterial Blood Gas): No results found for: PHART, PO2ART, TUD6SMS, XFM7MIU VBG (Venous Blood Gas): No results for input(s): PHVEN, EIP1XCH, PO2VEN, KML1UWM, BEVEN, ZIW1XPF in the last 72 hours. EKG: No [...] - Continue atovaquone for PJP prophylaxis given long term care pharmacist steroid use - refused lovenox, on SCD [...] of two midnights or is on the [facility] inpatient only procedure list (status C) due [...] Jeremy Metzger MD PCP: Derrick Mir MD ([phone]) Chief Complaint Patient presents with ??? Abdominal [...] in the last 7068 hours. Invalid input(s): [id number] No results for input(s): HA1C in the last 7068 hours. Lipids: Heme: No results for input(s): LDH, HAPTOGLOBIN, URICACID in the last 168 hours. ABG (Arterial Blood Gas): No results found for: PHART, PO2ART, EBY2OMR, JPB4YAF VBG (Venous Blood Gas): No results for input(s): PHVEN, BKC8UCL, PO2VEN, OLU0BFH, BEVEN, THP6FQB in the last 72 hours. EKG: No [...] who have questions please contact the health chronic care nurse that requested your imaging first. Medications: Scheduled: [...] underlying UC. [facility] but per staff, the attending will not be back in the hospital until Sunday and gurmeetll follow up with [facility] at that time. Iron studies demonstrated iron deficiency anemia, patient was unable to tolerate iron infusion. We will start PO supplementation here in the hospital. We will also start PPI and PJP prophylaxis given fpc use of steroids. Plan: - Possible remicade [...] - Continue atovaquone for PJP prophylaxis given long term care pharmacist steroid use ?? #Seizure disorder - continue [...] M.D. Fellow in Gastroenterology and Hepatology Pager #[phone] 08/10/2022 Attending Addendum: I interviewed and examined the patient with Dr. Villarreal on rounds. I confirm the history and castro physical findings outlined in this note. The assessment and plan were formulated in discussion with me atthe time of this encounter, and I agree with them as documented. Nadia Orellana MD Gastroenterology and hepatology Pager: [phone] * Marc Cunningham MD - 08/10/2022 7:19 [...] in the last 7068 hours. Invalid input(s): [id number] No results for input(s): HA1C in the last 7068 hours. Lipids: Heme: No results for input(s): LDH, HAPTOGLOBIN, URICACID in the last 168 hours. ABG (Arterial Blood Gas): No results found for: PHART, PO2ART, OQV1QFV, YCY8WIU VBG (Venous Blood Gas): No results for input(s): PHVEN, UAP2NVM, PO2VEN, VQB7UNM, BEVEN, WQZ8ASK in the last 72 hours. EKG: No [...] who have questions please contact the health chronic care nurse that requested your imaging first. Medications: Scheduled: [...] underlying UC. [facility], but per staff, [...] Will start atovaquone for PJP prophylaxis given fpc steroid use ?? #Seizure disorder - continue [...] M.D. Fellow in Gastroenterology and Hepatology Pager #[phone] 08/09/2022 Attending Addendum: I interviewed and examined the patient with Dr. Villarreal. I confirm the history and castro physical findings outlined in this note. The assessment and plan were formulated in discussion with me at the time of this encounter, and I agree with them as documented. Nadia Orellana MD Gastroenterology and hepatology Pager: [phone] documented in this encounter H&P Notes * [...] who have questions please contact the health chronic care nurse that requested your imaging first. SSMENT and PLAN: Elsa Londono is a 61 [...] flare - Flex sig 08/07/22 bx at [facility]: chronic moderately active colitis in transverse, [...] Aria Thompson MD (2017April 2017 - Present) [address] [place], [place] [address] [place] [id number] #Housekeeping: - DVT PPx: SCDs due to [...] was being evaluated and treated by her supply technician with courses of st eroids as [...] that she was referred here by her supply technician for admission for further GI evaluation [...] team request ED GI consultation. GI paged. [phone] GI consulted. They agree with admission. They [...] reach. PLAN MOVING FORWARD: pain management monitor phototypesetting equipment monitor I/Os discharge planning as appropriate INDIVIDUALIZED FALL [...] surrogate would be surrogate decision maker per [place] surrogate decision making law. (Only good for 180 days) Any patient receiving care in [place] must abide by [place] law. The hierarchy for surrogate decision making [...] (i) The agent with financial power of admitted attorneys or a conservator appointed in accordance with [...] none Home Address confirmed as: [address] [address] Social & Family Supports: All names listed below confirmed with patient as current and correct Extended Emergency Contact Information Primary Emergency Contact: Bartolo Londono Address: [address] [place] [address] [place] Relation: Spouse Current [...] Pertinent/Service Specific Information: Health/Prescription Coverage: Primary Insurance: [employer] [place] Pay[place] [employer] / Plan[place] / Product Type: *No Product type* / Secondary Insurance: N/A ; Prescription Coverage: Yes Preferred Pharmacy: [facility] [id number] [place], [place] [address] [facility] [address] [facility] [address] [place] Status: Patient is a : No Primary Care Provider confirmed: None None Patient/Caregiver Goals of Treatment: Return home when medically ready Potential Needs for Transition of Care: outpatient care Agency Referrals: Not Applicable Transportation: no concerns Transportation Anticipated: family or friend will provide Concerns to be Addressed: no discharge needs identified Assessment: Patient is admitted to [facility] for ulcerative colitis. Plan: Inpatient admission, [...] of care planning. Louann PONCE Emergency Department Heating And Ventilating Drafter [phone] Pager: [phone] * Consult Note - Nadia Orellana MD [...] who have questions please contact the health chronic care nurse that requested your imaging first. SCOPY: Reports and images personally reviewed in eDH [...] (pt reports these were done recently at [facility] prior to starting [facility]) - will monitor [...] Nadia Orellana MD Gastroenterology and hepatology Pager: [phone] * ED Triage - Sahra Neville RN [...] 10:00 AM EDT Office [place] [address] Janice Villarreal MD [facility] [place] [address] documented as of this encounter Procedures Procedure [...] 2 5:01 AM EST BASIC METABOLIC PANEL Routine [...] EST) Osmolality 267(L) 275 - 295 mOsm/kg [facility] Blood Venous Draw / Unknown 08/14/2022 5:12 AM EST 08/14/2022 5:32 AM EST Narrative Resulting Agency Comment Spec In Lab Marc Cunningham MD CHEMISTRY ORDERABLES [facility] [place] [address] * Scan, Peripheral Blood (08/14/2022 5:12 AM EST) Plat estimate Increased [facility] RBC Morphology Abnormal [facility] Hypochromia Slight [facility] Ovalocytes 1-5 /HPF [facility] Blood 08/14/2022 5:12 AM EST 08/14/2022 5:27 AM EST Narrative Resulting Agency Comment Spec In Lab Jenise Tijerina MD HEMATOLOGY ORDERABLE S [facility] [place] [address] * (ABNORMAL) Differential, Automated (08/14/2022 5:12 AM EST) Neutrophil % 43.3 % [facility] Neutrophil Absolute 6.22(H) 1.70 - 6.10 x10(3)/mc L [facility] Lymph % 43.3 % [facility] Lymphocytes Abs 6.2(H) 0.9 - 3.2 x10(3)/mc L [facility] Monocyte % 9.5 % [facility] Monocyte Abs 1.4(H) 0.3 - 0.9 x10(3)/mc L [facility] Eos % 2.4 % [facility] Eosinophils Abs 0.3 0.0 - 0.4 x10(3)/mc L [facility] Basophil % 0.4 % [facility] Baso Absolute 0.1 0.0 - 0.1 x10(3)/mc L [facility] Immature Gran % 1.10 % [facility] Comment: Immature granulocytes(IG's)percentage and absolute count will include metamyelocytes, myelocytes, and promyelocytes. Blood smears from CBCs yielding IG's will be scanned manually for concordance. If this scan disagrees with the automated IG or if promyelocytes are noted, a manual differential will be performed. Immature Gran Absolute 0.16(H) 0.00 - 0.04 x10(3)/mc L [facility] Blood 08/14/2022 5:12 AM EST 08/14/2022 5:27 AM EST Narrative Resulting Agency Comment Spec In Lab Jenise Tijerina MD HEMATOLOGY ORDERABLE S [facility] [place] [address] * (ABNORMAL) Hemogram (08/14/2022 5:12 AM EST) White Blood Cell 14.4(H) 4.0 - 9.5 x10(3)/mc L [facility] Red Blood Cell 2.62(L) 4.00 - 5.21 x10(6)/mc L [facility] Hemoglobin 7.7(L) 11.7 - 15.5 g/dL [facility] Hematocrit 22.8(L) 35.7 - 45.8 % [facility] Mean Cell Volume 87.0 82.6 - 94.4 fL [facility] Mean Cell Hemoglobin 29.4 27.1 - 32.0 pg [facility] Mean Cell Hemoglobin Concentration 33.8 31.7 - 35.0 g/dL [facility] Platelet 621(H) 145 - 357 x10(3)/mc L [facility] RDW Standard Deviation 47.9(H) 37.0 - 46.0 fL [facility] RDW coefficient of variation 15.2(H) 11.5 - 14.1 % [facility] Mean Platelet Volume 8.0 7.6 - 12.9 fL [facility] NRBC% auto 0.0 % [facility] NRBC Absolute 0.000 0.000 - 0.000 x10(3)/mc L [facility] Blood 08/14/2022 5:12 AM EST 08/14/2022 5:32 AM EST Narrative Resulting Agency Comment Spec In Lab Marc Cunningham MD HEMATOLOGY ORDERABLE S Performing Organization Address City/[facility] Co de Phone Number [facility] [place] [address] * (ABNORMAL) CRP, acute inflammation (08/14/2022 5:12 AM EST) C-Reactive Protein 9.9(H) <=4.9 mg/L [facility] Blood 08/14/2022 5:12 AM EST 08/14/2022 5:27 AM EST Narrative Resulting Agency Comment Spec In Lab Jeremy Metzger MD CHEMISTRY ORDERABLES Performing Organization Address City/[facility] Co de Phone Number [facility] [place] [address] * (ABNORMAL) Hepatic Function Panel (08/14/2022 5:12 AM EST) Protein, Total 4.8(L) 6.1 - 8.0 g/dL [facility] Albumin 2.8(L) 3.2 - 5.2 g/dL [facility] Aspartate Aminotransferase 12 0 - 30 unit/L [facility] Alanine Aminotransferase 11 0 - 30 unit/L [facility] Alkaline Phosphatase 47 35 - 105 unit/L [facility] Bilirubin, Total <0.2(L) 0.2 - 1.3 mg/dL [facility] Bilirubin, Direct <0.1 0.0 - 0.3 mg/dL [facility] Blood 08/14/2022 5:12 AM EST 08/14/2022 5:27 AM EST Narrative Resulting Agency Comment Spec In Lab Jeremy Metzger MD CHEMISTRY ORDERABLES Performing Organization Address City/State/[facility] Co de Phone Number [facility] [place] [address] * (ABNORMAL) Basic Metabolic Panel (non-fasting) (08/14/2022 5:12 AM EST) Glucose 86 65 - 199 mg/dL [facility] Comment:Diabetes: >=200 mg/d L plus symptoms Blood Urea Nitrogen 14 8 - 18 mg/dL [facility] Creatinine 0.65(L) 0.70 - 1.20 mg/dL [facility] Sodium 129(L) 135 - 145 mmol/L [facility] Potassium 3.7 3.5 - 5.0 mmol/L [facility] Comment: Please note: ??Patients with WBC >100,000 may have falsely elevated Potassium levels. ??For accurate Potassium quantification in these patients send serum separator tube (gold top) for subsequent determinations. ??Contact the Clinical Chemistry Laboratory if there are any questions. Chloride 94(L) 98 - 107 mmol/L [facility] Carbon Dioxide 29 22 - 31 mmol/L [facility] Anion Gap 6 5 - 15 mmol/L [facility] Calcium 7.9(L) 8.5 - 10.5 mg/dL [facility] Est Glomerular Filtration Rate 99 >=60 mL/min/1. 73 m?? [facility] Comment: This patient's estimated GFR was [...] Metzger MD CHEMISTRY ORDERABLES Performing Organization Address City/[facility]/ZIP Co de Phone Number [facility] [place] [address] * SCAN DOC: ORDS - PROVIDER CARE (08/14/2022 12:00 AM EST) Narrative 08/14/2022 12:00 AM EST Ordered by an unspecified provider. Scanning Provider MEDIA MGR SCAN EXT O RDR/RSLT * (ABNORMAL) Phosphorus (08/13/2022 5:01 AM EST) Phosphorus 2.4(L) 2.5 - 4.5 mg/dL [facility] Blood Venous Draw / Unknown 08/13/2022 5:01 AM EST 08/13/2022 5:25 AM EST Narrative Resulting Agency Comment Spec In Lab Marc Cunningham MD CHEMISTRY ORDERABLES Performing Organization Address City/[facility]/ZIP Co de Phone Number [facility] [place] [address] * Magnesium (08/13/2022 5:01 AM EST) Magnesium 0.81 0.69 - 1.07 mmol/L [facility] Blood Venous Draw / Unknown 08/13/2022 5:01 AM EST 08/13/2022 5:25 AM EST Narrative Resulting Agency Comment Spec In Lab Marc Cunningham MD CHEMISTRY ORDERABLES [facility] [place] [address] * (ABNORMAL) Differential, Automated (08/13/2022 5:01 AM EST) Neutrophil % 57.0 % [facility] Neutrophil Absolute 5.29 1.70 - 6.10 x10(3)/mc L [facility] Lymph % 31.4 % [facility] Lymphocytes Abs 2.9 0.9 - 3.2 x10(3)/mc L [facility] Monocyte % 10.1 % [facility] Monocyte Abs 0.9 0.3 - 0.9 x10(3)/mc L [facility] Eos % 0.2 % [facility] Eosinophils Abs 0.0 0.0 - 0.4 x10(3)/mc L [facility] Basophil % 0.1 % [facility] Baso Absolute 0.0 0.0 - 0.1 x10(3)/mc L [facility] Immature Gran % 1.20 % [facility] Comment: Immature granulocytes(IG's)percentage and absolute count will include metamyelocytes, myelocytes, and promyelocytes. Blood smears from CBCs yielding IG's will be scanned manually for concordance. If this scan disagrees with the automated IG or if promyelocytes are noted, a manual differential will be performed. Immature Gran Absolute 0.11(H) 0.00 - 0.04 x10(3)/mc L [facility] Blood 08/13/2022 5:01 AM EST 08/13/2022 5:23 AM EST Narrative Resulting Agency Comment Spec In Lab Jenise Tijerina MD HEMATOLOGY ORDERABLE S Performing Organization Address City/[facility]/ZIP Co de Phone Number [facility] [place] [address] * (ABNORMAL) Hemogram (08/13/2022 5:01 AM EST) White Blood Cell 9.3 4.0 - 9.5 x10(3)/mc L [facility] Red Blood Cell 2.84(L) 4.00 - 5.21 x10(6)/mc L [facility] Hemoglobin 8.3(L) 11.7 - 15.5 g/dL [facility] Hematocrit 25.4(L) 35.7 - 45.8 % [facility] Mean Cell Volume 89.4 82.6 - 94.4 fL [facility] Mean Cell Hemoglobin 29.2 27.1 - 32.0 pg [facility] Mean Cell Hemoglobin Concentration 32.7 31.7 - 35.0 g/dL [facility] Platelet 662(H) 145 - 357 x10(3)/mc L [facility] RDW Standard Deviation 49.1(H) 37.0 - 46.0 fL [facility] RDW coefficient of variation 15.1(H) 11.5 - 14.1 % [facility] Mean Platelet Volume 8.2 7.6 - 12.9 fL [facility] NRBC% auto 0.0 % [facility] NRBC Absolute 0.000 0.000 - 0.000 x10(3)/mc L [facility] Blood 08/13/2022 5:01 AM EST 08/13/2022 5:25 AM EST Narrative Resulting Agency Comment Spec In Lab Marc Cunningham MD HEMATOLOGY ORDERABLE S Performing Organization Address City/[facility] Co de Phone Number [facility] [place] [address] * (ABNORMAL) CRP, acute inflammation (08/13/2022 5:01 AM EST) C-Reactive Protein 18.7(H) <=4.9 mg/L [facility] Blood 08/13/2022 5:01 AM EST 08/13/2022 5:23 AM EST Narrative Resulting Agency Comment Spec In Lab Jeremy Metzger MD CHEMISTRY ORDERABLES Performing Organization Address City/[facility]/ZIP Co de Phone Number [facility] [place] [address] * (ABNORMAL) Hepatic Function Panel (08/13/2022 5:01 AM EST) Protein, Total 5.4(L) 6.1 - 8.0 g/dL [facility] Albumin 3.1(L) 3.2 - 5.2 g/dL [facility] Aspartate Aminotransferase 9 0 - 30 unit/L [facility] Alanine Aminotransferase 8 0 - 30 unit/L [facility] Alkaline Phosphatase 54 35 - 105 unit/L [facility] Bilirubin, Total <0.2(L) 0.2 - 1.3 mg/dL [facility] Bilirubin, Direct <0.1 0.0 - 0.3 mg/dL [facility] Blood 08/13/2022 5:01 AM EST 08/13/2022 5:23 AM EST Narrative Resulting Agency Comment Spec In Lab Jeremy Metzger MD CHEMISTRY ORDERABLES Performing Organization Address City/State/[facility] Co de Phone Number [facility] [place] [address] * (ABNORMAL) Basic Metabolic Panel (non-fasting) (08/13/2022 5:01 AM EST) Glucose 125 65 - 199 mg/dL [facility] Comment:Diabetes: >=200 mg/d L plus symptoms Blood Urea Nitrogen 15 8 - 18 mg/dL [facility] Creatinine 0.62(L) 0.70 - 1.20 mg/dL [facility] Sodium 134(L) 135 - 145 mmol/L [facility] Potassium 3.7 3.5 - 5.0 mmol/L [facility] Comment: Please note: ??Patients with WBC >100,000 may have falsely elevated Potassium levels. ??For accurate Potassium quantification in these patients send serum separator tube (gold top) for subsequent determinations. ??Contact the Clinical Chemistry Laboratory if there are any questions. Chloride 97(L) 98 - 107 mmol/L [facility] Carbon Dioxide 29 22 - 31 mmol/L [facility] Anion Gap 8 5 - 15 mmol/L [facility] Calcium 8.4(L) 8.5 - 10.5 mg/dL [facility] Est Glomerular Filtration Rate 100 >=60 mL/min/1. 73 m?? [facility] Comment: This patient's estimated GFR was [...] In Lab Jeremy Metzger MD CHEMISTRY ORDERABLES [facility] [place] [address] * (ABNORMAL) Differential, Automated (08/12/2022 7:22 AM EST) Neutrophil % 48.5 % [facility] Neutrophil Absolute 4.01 1.70 - 6.10 x10(3)/mc L [facility] Lymph % 38.6 % [facility] Lymphocytes Abs 3.2 0.9 - 3.2 x10(3)/mc L [facility] Monocyte % 11.2 % [facility] Monocyte Abs 0.9 0.3 - 0.9 x10(3)/mc L [facility] Eos % 0.5 % [facility] Eosinophils Abs 0.0 0.0 - 0.4 x10(3)/mc L [facility] Basophil % 0.4 % [facility] Baso Absolute 0.0 0.0 - 0.1 x10(3)/mc L [facility] Immature Gran % 0.80 % [facility] Comment: Immature granulocytes(IG's)percentage and absolute count will include metamyelocytes, myelocytes, and promyelocytes. Blood smears from CBCs yielding IG's will be scanned manually for concordance. If this scan disagrees with the automated IG or if promyelocytes are noted, a manual differential will be performed. Immature Gran Absolute 0.07(H) 0.00 - 0.04 x10(3)/mc L [facility] Blood 08/12/2022 7:22 AM EST 08/12/2022 7:34 AM EST Narrative Resulting Agency Comment Spec In Lab Jenise Tijerina MD HEMATOLOGY ORDERABLE S Performing Organization Address City/[facility]/ZIP Co de Phone Number [facility] [place] [address] * (ABNORMAL) Hemogram (08/12/2022 7:22 AM EST) White Blood Cell 8.3 4.0 - 9.5 x10(3)/mc L [facility] Red Blood Cell 2.54(L) 4.00 - 5.21 x10(6)/mc L [facility] Hemoglobin 7.3(L) 11.7 - 15.5 g/dL [facility] Hematocrit 22.6(L) 35.7 - 45.8 % [facility] Mean Cell Volume 89.0 82.6 - 94.4 fL [facility] Mean Cell Hemoglobin 28.7 27.1 - 32.0 pg [facility] Mean Cell Hemoglobin Concentration 32.3 31.7 - 35.0 g/dL [facility] Platelet 577(H) 145 - 357 x10(3)/mc L [facility] RDW Standard Deviation 49.4(H) 37.0 - 46.0 fL [facility] RDW coefficient of variation 15.0(H) 11.5 - 14.1 % [facility] Mean Platelet Volume 8.0 7.6 - 12.9 fL [facility] NRBC% auto 0.0 % [facility] NRBC Absolute 0.000 0.000 - 0.000 x10(3)/mc L [facility] Blood 08/12/2022 7:22 AM EST 08/12/2022 7:34 AM EST Narrative Resulting Agency Comment Spec In Lab Jenise Tijerina MD HEMATOLOGY ORDERABLE S Performing Organization Address City/[facility]/ZIP Co de Phone Number [facility] [place] [address] * (ABNORMAL) CRP, acute inflammation (08/12/2022 7:22 AM EST) C-Reactive Protein 39.1(H) <=4.9 mg/L [facility] Blood 08/12/2022 7:22 AM EST 08/12/2022 7:34 AM EST Narrative Resulting Agency Comment Spec In Lab Jeremy Metzger MD CHEMISTRY ORDERABLES Performing Organization Address [facility] Co de Phone Number [facility] [place] [address] * (ABNORMAL) Hepatic Function Panel (08/12/2022 7:22 AM EST) Pathologist [facility] Protein, Total 5.0(L) 6.1 - 8.0 g/dL [facility] Albumin 2.6(L) 3.2 - 5.2 g/dL [facility] Aspartate Aminotransferase 9 0 - 30 unit/L [facility] Alanine Aminotransferase 9 0 - 30 unit/L [facility] Alkaline Phosphatase 49 35 - 105 unit/L [facility] Bilirubin, Total <0.2(L) 0.2 - 1.3 mg/dL [facility] Bilirubin, Direct <0.1 0.0 - 0.3 mg/dL [facility] Blood 08/12/2022 7:22 AM EST 08/12/2022 7:34 AM EST Narrative Resulting Agency Comment Spec In Lab Jeremy Metzger MD CHEMISTRY ORDERABLES Performing Organization Address [facility] Co de Phone Number [facility] [place] [address] * (ABNORMAL) Basic Metabolic Panel (non-fasting) (08/12/2022 7:22 AM EST) Pathologist [facility] Glucose 103 65 - 199 mg/dL [facility] Comment:Diabetes: >=200 mg/d L plus symptoms Blood Urea Nitrogen 11 8 - 18 mg/dL [facility] Creatinine 0.47(L) 0.70 - 1.20 mg/dL [facility] Sodium 134(L) 135 - 145 mmol/L [facility] Potassium 3.6 3.5 - 5.0 mmol/L [facility] Comment: Please note: ??Patients with WBC >100,000 may have falsely elevated Potassium levels. ??For accurate Potassium quantification in these patients send serum separator tube (gold top) for subsequent determinations. ??Contact the Clinical Chemistry Laboratory if there are any questions. Chloride 99 98 - 107 mmol/L [facility] Carbon Dioxide 26 22 - 31 mmol/L [facility] Anion Gap 9 5 - 15 mmol/L [facility] Calcium 8.1(L) 8.5 - 10.5 mg/dL [facility] Est Glomerular Filtration Rate 107 >=60 mL/min/1. 73 m?? [facility] Comment: This patient's estimated GFR was [...] Metzger MD CHEMISTRY ORDERABLES Performing Organization Address City/State/[facility] Co de Phone Number [facility] [place] [address] * (ABNORMAL) Differential, Automated (08/11/2022 7:09 AM EST) Neutrophil % 63.2 % [facility] Neutrophil Absolute 5.17 1.70 - 6.10 x10(3)/mc L [facility] Lymph % 25.8 % [facility] Lymphocytes Abs 2.1 0.9 - 3.2 x10(3)/mc L [facility] Monocyte % 9.3 % [facility] Monocyte Abs 0.8 0.3 - 0.9 x10(3)/mc L [facility] Eos % 0.4 % [facility] Eosinophils Abs 0.0 0.0 - 0.4 x10(3)/mc L [facility] Basophil % 0.7 % [facility] Baso Absolute 0.1 0.0 - 0.1 x10(3)/mc L [facility] Immature Gran % 0.60 % [facility] Comment: Immature granulocytes(IG's)percentage and absolute count will include metamyelocytes, myelocytes, and promyelocytes. Blood smears from CBCs yielding IG's will be scanned manually for concordance. If this scan disagrees with the automated IG or if promyelocytes are noted, a manual differential will be performed. Immature Gran Absolute 0.05(H) 0.00 - 0.04 x10(3)/ L [facility] Blood 08/11/2022 7:09 AM EST 08/11/2022 7:27 AM EST Narrative Resulting Agency Comment Spec In Lab Jenise Tijerina MD HEMATOLOGY ORDERABLE S Performing Organization Address City/State/[facility] Co de Phone Number [facility] [place] [address] * (ABNORMAL) Hemogram (08/11/2022 7:09 AM EST) White Blood Cell 8.2 4.0 - 9.5 x10(3)/ L [facility] Red Blood Cell 2.53(L) 4.00 - 5.21 x10(6)/ L [facility] Hemoglobin 7.4(L) 11.7 - 15.5 g/dL [facility] Hematocrit 22.3(L) 35.7 - 45.8 % [facility] Mean Cell Volume 88.1 82.6 - 94.4 fL [facility] Mean Cell Hemoglobin 29.2 27.1 - 32.0 pg [facility] Mean Cell Hemoglobin Concentration 33.2 31.7 - 35.0 g/dL [facility] Platelet 575(H) 145 - 357 x10(3)/ L [facility] RDW Standard Deviation 48.1(H) 37.0 - 46.0 fL [facility] RDW coefficient of variation 14.9(H) 11.5 - 14.1 % [facility] Mean Platelet Volume 8.0 7.6 - 12.9 fL [facility] NRBC% auto 0.0 % [facility] NRBC Absolute 0.000 0.000 - 0.000 x10(3)/mc L [facility] Blood 08/11/2022 7:09 AM EST 08/11/2022 7:27 AM EST Narrative Resulting Agency Comment Spec In Lab Jenise Tijerina MD HEMATOLOGY ORDERABLE S Performing Organization Address City/[facility] Co de Phone Number [facility] [place] [address] * (ABNORMAL) CRP, acute inflammation (08/11/2022 7:09 AM EST) C-Reactive Protein 44.4(H) <=4.9 mg/L [facility] Blood 08/11/2022 7:09 AM EST 08/11/2022 7:27 AM EST Narrative Resulting Agency Comment Spec In Lab Jeremy Metzger MD CHEMISTRY ORDERABLES Performing Organization Address [facility] Co de Phone Number [facility] [place] [address] * (ABNORMAL) Hepatic Function Panel (08/11/2022 7:09 AM EST) Protein, Total 5.1(L) 6.1 - 8.0 g/dL [facility] Albumin 3.0(L) 3.2 - 5.2 g/dL [facility] Aspartate Aminotransferase 7 0 - 30 unit/L [facility] Alanine Aminotransferase 6 0 - 30 unit/L [facility] Alkaline Phosphatase 52 35 - 105 unit/L [facility] Bilirubin, Total <0.2(L) 0.2 - 1.3 mg/dL [facility] Bilirubin, Direct <0.1 0.0 - 0.3 mg/dL [facility] Blood 08/11/2022 7:09 AM EST 08/11/2022 7:27 AM EST Narrative Resulting Agency Comment Spec In Lab Jeremy Metzger MD CHEMISTRY ORDERABLES [facility] [place] [address] * (ABNORMAL) Basic Metabolic Panel (non-fasting) (08/11/2022 7:09 AM EST) Glucose 107 65 - 199 mg/dL [facility] Comment:Diabetes: >=200 mg/d L plus symptoms Blood Urea Nitrogen 7(L) 8 - 18 mg/dL [facility] Creatinine 0.60(L) 0.70 - 1.20 mg/dL [facility] Sodium 132(L) 135 - 145 mmol/L [facility] Potassium 3.0(Criti mal) 3.5 - 5.0 mmol/L [facility] Comment: Called by: [facility], Read back by: Brad Hoffman, Date/Time:08/11/22 08:24. Please note: ??Patients with WBC >100,000 may have falsely elevated Potassium levels. ??For accurate Potassium quantification in these patients send serum separator tube (gold top) for subsequent determinations. ??Contact the Clinical Chemistry Laboratory if there are any questions. Chloride 96(L) 98 - 107 mmol/L [facility] Carbon Dioxide 25 22 - 31 mmol/L [facility] Anion Gap 11 5 - 15 mmol/L [facility] Calcium 7.9(L) 8.5 - 10.5 mg/dL [facility] Est Glomerular Filtration Rate 101 >=60 mL/min/1. 73 m?? [facility] Comment: This patient's estimated GFR was [...] Metzger MD CHEMISTRY ORDERABLES Performing Organization Address City/[facility] Co de Phone Number [facility] [place] [address] * (ABNORMAL) Hemoglobin and Hematocrit, blood (08/10/2022 12:10 PM EST) Hemoglobin 7.8(L) 11.7 - 15.5 g/dL [facility] Hematocrit 23.0(L) 35.7 - 45.8 % [facility] Blood 08/10/2022 12:1 0 PM EST 08/10/2022 12:22 PM EST Narrative Resulting Agency Comment Spec In Lab Jeremy Metzger MD HEMATOLOGY ORDERABLE S Performing Organization Address City/[facility] Co de Phone Number [facility] [place] [address] * QuantiFERON-TB Gold (08/10/2022 12:10 PM EST) Quantiferon Nil 0.039 IU/mL [facility] QFT TB Ag1-Nil 0.010 IU/mL [facility] QFT TB Ag2-Nil 0.239 IU/mL [facility] Quantiferon Mitogen-Nil 9.961 IU/mL [facility] Quantiferon-TB Gold Negative Negative [facility] Quantiferon Tb Interp M. tuberculosis infection [...] affect immune function, or other immunological factors. [facility] Blood 08/10/2022 12:1 0 PM EST 08/11/2022 7:34 AM EST Narrative Resulting Agency Comment Spec In Lab Jeremy Metzger MD CHEMISTRY ORDERABLES Performing Organization Address City/[facility] Co de Phone Number [facility] [place] [address] * Hepatitis B Core Antibody, Total (08/10/2022 12:10 PM EST) Hepatitis B Core Antibody Negative Negative [facility] Blood 08/10/2022 12:1 0 PM EST 08/10/2022 12:23 PM EST Narrative Resulting Agency Comment Spec In Lab Jeremy Metzger MD CHEMISTRY ORDERABLES Performing Organization Address [facility] Phone Number [facility] [place] [address] * Hepatitis B Surface Antibody (08/10/2022 12:10 PM EST) Hepatitis B Surface Antibody, Quantitative 216.0 IU/L [facility] Comment: HepB Surface Ab Quant: Unvaccinated: < 8.5 IU/L Vaccinated: > 11.5 IU/L Hepatitis B Surface Antibody Positive [facility] Comment: Patient is considered to be immune to HBV infection. Expected Results: Vaccinated: Positive Unvaccinated: Negative Blood 08/10/2022 12:1 0 PM EST 08/10/2022 12:23 PM EST Narrative Resulting Agency Comment Spec In Lab Jeremy Metzger MD CHEMISTRY ORDERABLES Performing Organization Address [facility] Co de Phone Number [facility] [place] [address] * Hepatitis B Surface Antibody (08/10/2022 12:10 PM EST) Hepatitis B Surface Antibody, Quantitative 218.0 IU/L [facility] Comment: HepB Surface Ab Quant: Unvaccinated: < 8.5 IU/L Vaccinated: > 11.5 IU/L Hepatitis B Surface Antibody Positive [facility] Comment: Patient is considered to be immune to HBV infection. Expected Results: Vaccinated: Positive Unvaccinated: Negative Blood 08/10/2022 12:1 0 PM EST 08/10/2022 12:23 PM EST Narrative Resulting Agency Comment Spec In Lab Jeremy Metzger MD CHEMISTRY ORDERABLES Performing Organization Address City/[facility]/ZIP Co de Phone Number [facility] [place] [address] * (ABNORMAL) CRP, acute inflammation (08/10/2022 1:16 AM EST) C-Reactive Protein 21.0(H) <=4.9 mg/L [facility] Blood Venous Draw / Unknown 08/10/2022 1:16 AM EST 08/10/2022 1:18 AM EST Narrative Resulting Agency Comment Spec In Lab Basil De La Rosa MD CHEMISTRY ORDERABLES Performing Organization Address [facility] Co de Phone Number [facility] [place] [address] * Type and Screen Validity (08/10/2022 1:16 AM EST) T&S only valid at [facility] Comment:This Type and Screen result is only valid at the [facility] Blood 08/10/2022 1:16 AM EST 08/10/2022 1:31 AM EST Narrative Resulting Agency Comment Spec In Lab Jenise Tijerina MD BLOOD BANK LAB ORDER JUNE Performing Organization Address City/[facility] Co de Phone Number [facility] [place] [address] * ABORH Recheck Status (08/10/2022 1:16 AM EST) ABORH Recheck Order Order Placed [facility] ABORH Type Recheck Complete [facility] Blood 08/10/2022 1:16 AM EST 08/10/2022 1:31 AM EST Narrative Resulting Agency Comment Spec In Lab Jenise Tijerina MD BLOOD BANK LAB ORDER JUNE Performing Organization Address City/[facility]/ZIP Co de Phone Number [facility] [place] [address] * Antibody screen (08/10/2022 1:16 AM EST) Pathologist [facility] Ab Screen Interp Negative [facility] Expires at [id number] on: 08/13/2022 [facility] Blood 08/10/2022 1:16 AM EST 08/10/2022 1:31 AM EST Narrative Resulting Agency Comment Spec In Lab Jenise Tijerina MD BLOOD BANK LAB ORDER JUNE Performing Organization Address [facility] Co de Phone Number [facility] [place] [address] * ABO/Rh Typing (08/10/2022 1:16 AM EST) Pathologist [facility] ABORH Type O Pos [facility] Blood 08/10/2022 1:16 AM EST 08/10/2022 1:31 AM EST Narrative Resulting Agency Comment Spec In Lab Jenise Tijerina MD BLOOD BANK LAB ORDER JUNE Performing Organization Address [facility] Co de Phone Number [facility] [place] [address] * (ABNORMAL) Differential, Automated (08/10/2022 1:16 AM EST) Pathologist [facility] Neutrophil % 82.6 % [facility] Neutrophil Absolute 8.90(H) 1.70 - 6.10 x10(3)/mc L [facility] Lymph % 13.0 % [facility] Lymphocytes Abs 1.4 0.9 - 3.2 x10(3)/mc L [facility] Monocyte % 2.5 % [facility] Monocyte Abs 0.3 0.3 - 0.9 x10(3)/mc L [facility] Eos % 0.7 % [facility] Eosinophils Abs 0.1 0.0 - 0.4 x10(3)/mc L [facility] Basophil % 0.6 % [facility] Baso Absolute 0.1 0.0 - 0.1 x10(3)/mc L [facility] Immature Gran % 0.60 % [facility] Comment: Immature granulocytes(IG's)percentage and absolute count will include metamyelocytes, myelocytes, and promyelocytes. Blood smears from CBCs yielding IG's will be scanned manually for concordance. If this scan disagrees with the automated IG or if promyelocytes are noted, a manual differential will be performed. Immature Gran Absolute 0.06(H) 0.00 - 0.04 x10(3)/ L [facility] Blood 08/10/2022 1:16 AM EST 08/10/2022 1:17 AM EST Narrative Resulting Agency Comment Spec In Lab Jenise Tijerina MD HEMATOLOGY ORDERABLE S Performing Organization Address City/State/[facility] Co de Phone Number [facility] [place] [address] * (ABNORMAL) Hemogram (08/10/2022 1:16 AM EST) White Blood Cell 10.8(H) 4.0 - 9.5 x10(3)/[facility] Red Blood Cell 2.53(L) 4.00 - 5.21 x10(6)/[facility] Hemoglobin 7.4(L) 11.7 - 15.5 g/dL [facility] Hematocrit 22.4(L) 35.7 - 45.8 % [facility] Mean Cell Volume 88.5 82.6 - 94.4 fL [facility] Mean Cell Hemoglobin 29.2 27.1 - 32.0 pg [facility] Mean Cell Hemoglobin Concentration 33.0 31.7 - 35.0 g/dL [facility] Platelet 507(H) 145 - 357 x10(3)/ L [facility] RDW Standard Deviation 47.6(H) 37.0 - 46.0 fL [facility] RDW coefficient of variation 14.6(H) 11.5 - 14.1 % [facility] Mean Platelet Volume 8.0 7.6 - 12.9 fL [facility] NRBC% auto 0.0 % [facility] NRBC Absolute 0.000 0.000 - 0.000 x10(3)/mc L [facility] Blood 08/10/2022 1:16 AM EST 08/10/2022 1:17 AM EST Narrative Resulting Agency Comment Spec In Lab Jenise Tijerina MD HEMATOLOGY ORDERABLE S Performing Organization Address [facility] de Phone Number [facility] [place] [address] * (ABNORMAL) Hepatic Function Panel (08/10/2022 1:16 AM EST) Protein, Total 5.1(L) 6.1 - 8.0 g/dL [facility] Albumin 3.0(L) 3.2 - 5.2 g/dL [facility] Aspartate Aminotransferase 12 0 - 30 unit/L [facility] Alanine Aminotransferase 8 0 - 30 unit/L [facility] Alkaline Phosphatase 57 35 - 105 unit/L [facility] Bilirubin, Total <0.2(L) 0.2 - 1.3 mg/dL [facility] Bilirubin, Direct <0.1 0.0 - 0.3 mg/dL [facility] Blood 08/10/2022 1:16 AM EST 08/10/2022 1:17 AM EST Narrative Resulting Agency Comment Spec In Lab Jeremy Metzger MD CHEMISTRY ORDERABLES Performing Organization Address [facility] Co de Phone Number [facility] [place] [address] * (ABNORMAL) Basic Metabolic Panel (non-fasting) (08/10/2022 1:16 AM EST) Glucose 119 65 - 199 mg/dL [facility] Comment:Diabetes: >=200 mg/d L plus symptoms Blood Urea Nitrogen 6(L) 8 - 18 mg/dL [facility] Creatinine 0.59(L) 0.70 - 1.20 mg/dL [facility] Sodium 130(L) 135 - 145 mmol/L [facility] Potassium 3.6 3.5 - 5.0 mmol/L [facility] Comment: Please note: ??Patients with WBC >100,000 may have falsely elevated Potassium levels. ??For accurate Potassium quantification in these patients send serum separator tube (gold top) for subsequent determinations. ??Contact the Clinical Chemistry Laboratory if there are any questions. Chloride 95(L) 98 - 107 mmol/L [facility] Carbon Dioxide 24 22 - 31 mmol/L [facility] Anion Gap 11 5 - 15 mmol/L [facility] Calcium 7.8(L) 8.5 - 10.5 mg/dL [facility] Comment:result rechecked-KS Est Glomerular Filtration Rate 101 >=60 mL/min/1. 73 m?? [facility] Comment: This patient's estimated GFR was [...] In Lab Jeremy Metzger MD CHEMISTRY ORDERABLES [facility] [place] [address] * (ABNORMAL) Ferritin (08/10/2022 1:16 AM EST) [facility] Ferritin 23(L) 30 - 400 ng/mL [facility] Comment: Pediatric reference ranges not verified at [facility] interpret with caution. Reference ranges for females greater than 50 years of age approach values for men, i.e., 30-400 ng/mL. Blood 08/10/2022 1:16 AM EST 08/10/2022 1:17 AM EST Narrative Resulting Agency Comment Spec In Lab Jeremy Metzger MD CHEMISTRY ORDERABLES Performing Organization Address [facility] Co de Phone Number [facility] [place] [address] * (ABNORMAL) Iron and TIBC (08/10/2022 1:16 AM EST) Iron 18(L) 30 - 150 mcg/dL [facility] TIBC 213(L) 250 - 450 mcg/dL [facility] Iron Saturation 8(L) 20 - 50 % [facility] Blood 08/10/2022 1:16 AM EST 08/10/2022 1:17 AM EST Narrative Resulting Agency Comment Spec In Lab Jeremy Metzger MD CHEMISTRY ORDERABLES Performing Organization Address [facility] Co de Phone Number [facility] [place] [address] * Sedimentation rate (08/10/2022 1:16 AM EST) Sedimentation Rate Automated 26 2 - 39 mm/hr [facility] Comment: Effective August 06, 2019 new capillary photometric technology has resulted in a change in reference ranges. It is recommended that each ESR result be reviewed with its own age appropriate reference range. Blood 08/10/2022 1:16 AM EST 08/10/2022 1:17 AM EST Narrative Resulting Agency Comment Spec In Lab Jeremy Metzger MD HEMATOLOGY ORDERABLE S Performing Organization Address [facility] Co de Phone Number [facility] [place] [address] * Shiga Toxin Detection (08/09/2022 7:18 PM EST) Shiga Toxin Assay EIA Negative for Shiga Toxin 1 EIA Negative for Shiga Toxin 2 [facility] Stool 08/09/2022 7:18 PM EST 08/09/2022 8:04 PM EST Narrative Resulting Agency Comment Spec In Lab Basil De La Rosa MD MICROBIOLOGY - GENER AL ORDERABLES Performing Organization Address City/[facility]/ZIP Co de Phone Number [facility] [place] [address] * Campylobacter Antigen (08/09/2022 7:18 PM EST) Campylobacter Ag Immunoassay Negative for Campylobacter Antigen [facility] Stool 08/09/2022 7:18 PM EST 08/09/2022 8:04 PM EST Narrative Resulting Agency Comment Spec In Lab Basil De La Rosa MD MICROBIOLOGY - GENER AL ORDERABLES Performing Organization Address City/[facility] Co de Phone Number [facility] [place] [address] * Stool culture (08/09/2022 7:18 PM EST) Stool Culture No enteric pathogens isolated [facility] Stool 08/09/2022 7:18 PM EST 08/09/2022 8:04 PM EST Narrative Resulting Agency Comment Spec In Lab Basil De La Rosa MD MICROBIOLOGY - GENER AL ORDERABLES Performing Organization Address [facility] Co de Phone Number [facility] [place] [address] * (ABNORMAL) Fecal Lactoferrin (08/09/2022 7:18 PM EST) Fecal Lactoferrin Positive( A) Negative [facility] Stool 08/09/2022 7:18 PM EST 08/09/2022 8:03 PM EST Narrative Resulting Agency Comment Spec In Lab Jeremy Metzger MD MICROBIOLOGY - GENER AL ORDERABLES Performing Organization Address [facility] Co de Phone Number [facility] [place] [address] * C. Difficile Screen (08/09/2022 7:18 PM EST) C Diff Interp Negative Negative [facility] Comment: PCR [...] - GENER AL ORDERABLES Performing Organization Address [facility] de Phone Number [facility] [place] [address] * (ABNORMAL) Calprotectin, Stool (08/09/2022 7:17 PM EST) Calprotectin, Stool >2,000(H) <=79 mcg/g [facility] Comment: Calprotectin Concentration ? Interpretation ? < 80 mcg/g ?Normal ? 80 ? 160 mcg/g ?Borderline ? >160 mcg/g ?Elevated Stool 08/09/2022 7:17 PM EST 08/09/2022 7:33 PM EST Narrative Resulting Agency Comment Spec In Lab Basil De La Rosa MD BODY FLUIDS AND STOO LS ORDERABLES Performing Organization Address [facility] de Phone Number [facility] [place] [address] * CT Abdomen & Pelvis w Contrast [...] who have questions please contact the health chronic care nurse that requested your imaging first. ? Narrative 08/09/2022 1:09 PM EST EXAMINATION: CT [...] administration of contrast. Administered 71.0 ml of [id number] mg/ml. Oral contrast was not administered. COMPARISON: [...] patients who have questions please contactthe health chronic care nurse that requested your imaging first. Basil De La Rosa MD IMG CT ORDERABLES * L-Lactate2 Whole Blood (08/09/2022 11:52 AM EST) Lactate WB 1.0 0.5 - 2.2 mmol/L [facility] Blood 08/09/2022 11:5 2 AM EST 08/09/2022 11:52 AM EST Emergency Dept CHEMISTRY ORDERABLE S [facility] [place] [address] * (ABNORMAL) CRP, acute inflammation (08/09/2022 10:46 AM EST) C-Reactive Protein 30.4(H) <=4.9 mg/L [facility] Blood Venous Draw / Unknown 08/09/2022 10:46 AM EST 08/09/2022 11:44 AM EST Narrative Resulting Agency Comment Spec In Lab Basil De La Rosa MD CHEMISTRY ORDERABLES [facility] [place] [address] * (ABNORMAL) Differential, Automated (08/09/2022 10:46 AM EST) Pathologist [facility] Neutrophil % 78.5 % [facility] Neutrophil Absolute 6.87(H) 1.70 - 6.10 x10(3)/mc L [facility] Lymph % 14.6 % [facility] Lymphocytes Abs 1.3 0.9 - 3.2 x10(3)/mc L [facility] Monocyte % 5.6 % [facility] Monocyte Abs 0.5 0.3 - 0.9 x10(3)/mc L [facility] Eos % 0.3 % [facility] Eosinophils Abs 0.0 0.0 - 0.4 x10(3)/mc L [facility] Basophil % 0.3 % [facility] Baso Absolute 0.0 0.0 - 0.1 x10(3)/mc L [facility] Immature Gran % 0.70 % [facility] Comment: Immature granulocytes(IG's)percentage and absolute count will include metamyelocytes, myelocytes, and promyelocytes. Blood smears from CBCs yielding IG's will be scanned manually for concordance. If this scan disagrees with the automated IG or if promyelocytes are noted, a manual differential will be performed. Immature Gran Absolute 0.06(H) 0.00 - 0.04 x10(3)/mc L [facility] Blood 08/09/2022 10:4 6 AM EST 08/09/2022 11:42 AM EST Narrative Resulting Agency Comment Spec In Lab Marilyn Marc MD HEMATOLOGY ORDERAB LES [facility] [place] [address] * (ABNORMAL) Hemogram (08/09/2022 10:46 AM EST) White Blood Cell 8.8 4.0 - 9.5 x10(3)/mc L [facility] Red Blood Cell 2.98(L) 4.00 - 5.21 x10(6)/mc L [facility] Hemoglobin 8.6(L) 11.7 - 15.5 g/dL [facility] Hematocrit 26.1(L) 35.7 - 45.8 % [facility] Mean Cell Volume 87.6 82.6 - 94.4 fL [facility] Mean Cell Hemoglobin 28.9 27.1 - 32.0 pg [facility] Mean Cell Hemoglobin Concentration 33.0 31.7 - 35.0 g/dL [facility] Platelet 665(H) 145 - 357 x10(3)/mc L [facility] RDW Standard Deviation 48.0(H) 37.0 - 46.0 fL [facility] RDW coefficient of variation 14.9(H) 11.5 - 14.1 % [facility] Mean Platelet Volume 8.0 7.6 - 12.9 fL [facility] NRBC% auto 0.0 % [facility] NRBC Absolute 0.000 0.000 - 0.000 x10(3)/mc L [facility] Blood 08/09/2022 10:4 6 AM EST 08/09/2022 11:42 AM EST Narrative Resulting Agency Comment Spec In Lab Marilyn Marc MD HEMATOLOGY ORDERAB LES [facility] [place] [address] * Lipase (08/09/2022 10:46 AM EST) Lipase 18 0 - 60 unit/L [facility] Blood 08/09/2022 10:4 6 AM EST 08/09/2022 11:42 AM EST Narrative Resulting Agency Comment Spec In Lab Basil De La Rosa MD CHEMISTRY ORDERABLES Performing Organization Address City/[facility] Co de Phone Number [facility] [place] [address] * (ABNORMAL) Hepatic Function Panel (08/09/2022 10:46 AM EST) Protein, Total 5.8(L) 6.1 - 8.0 g/dL [facility] Albumin 3.1(L) 3.2 - 5.2 g/dL [facility] Aspartate Aminotransferase 13 0 - 30 unit/L [facility] Alanine Aminotransferase 12 0 - 30 unit/L [facility] Alkaline Phosphatase 65 35 - 105 unit/L [facility] Bilirubin, Total <0.2(L) 0.2 - 1.3 mg/dL [facility] Bilirubin, Direct <0.1 0.0 - 0.3 mg/dL [facility] Blood 08/09/2022 10:4 6 AM EST 08/09/2022 11:42 AM EST Narrative Resulting Agency Comment Spec In Lab Basil De La Rosa MD CHEMISTRY ORDERABLES Performing Organization Address [facility] Co de Phone Number [facility] [place] [address] * (ABNORMAL) Basic Metabolic Panel (non-fasting) (08/09/2022 10:46 AM EST) Glucose 122 65 - 199 mg/dL [facility] Comment:Diabetes: >=200 mg/d L plus symptoms Blood Urea Nitrogen 9 8 - 18 mg/dL [facility] Creatinine 0.73 0.70 - 1.20 mg/dL [facility] Sodium 131(L) 135 - 145 mmol/L [facility] Potassium 3.6 3.5 - 5.0 mmol/L [facility] Comment: Please note: ??Patients with WBC >100,000 may have falsely elevated Potassium levels. ??For accurate Potassium quantification in these patients send serum separator tube (gold top) for subsequent determinations. ??Contact the Clinical Chemistry Laboratory if there are any questions. Chloride 93(L) 98 - 107 mmol/L [facility] Carbon Dioxide 27 22 - 31 mmol/L [facility] Anion Gap 11 5 - 15 mmol/L [facility] Calcium 8.8 8.5 - 10.5 mg/dL [facility] Est Glomerular Filtration Rate 92 >=60 mL/min/1. 73 m?? [facility] Comment: This patient's estimated GFR was [...] Basil De La Rosa MD CHEMISTRY ORDERABLES [facility] [place] [address] documented in this encounter Visit Diagnoses Diagnosis [...] Laura 08/10/22 at 0900, Until Discontinued, Routine Given 08/12/2022 [...] Senior, WEN) [phone] (Given - Provider: Mandy Senior RN) [...] documented as of this encounter Care Teams Cell Tender Relationship Specialty Start Date End Date Pradeep Glalardo APRN PCP - General 07/19/10 08/04/24 documented as of this encounter
--- OUTSIDE RECORDS SUMMARY | 2024-09-12 00:58 | XMS_ITS | Encounter Summary ---
[place] [address] Care Team Providers Care Relief Charge Nurse Name Role Phone Pradeep Gallardo APRN Primary Care Provider Reason for Visit * Reason Comments Thyroid Nodule Encounter Details Date Type Department Care Team (Late st Contact Info) Description 03/12/2018 3:30 PM EDT [place] [phone] Katie Almanza MD Thyroid nodule Social History Tobacco Use [...] Office Visit from 03/12/2018 in Endocrinology at [facility] Weight 67.1 kg (148 lb) Height 158.8 [...] symptomatic L thyroid nodule KATIE ALMANZA MD [employer] analysis operator Section of Endocrinology [facility] * Katie Almanza MD - 03/12/2018 3:30 [...] small pockets of fluid. Katie Almanza MD [employer] analysis operator Section of Endocrinology [facility] documented in this encounter Plan of Treatment Upcoming Encounters Date Type Department Care Team (Late st Contact Info) Description 01/28/2025 10:00 AM EDT Office [place] [address] Janice Villarreal MD [facility] [place] [address] documented as of this encounter Procedures Procedure [...] Thyroglob Ab <20.0 0.0 - 40.0 IU/mL [facility] Blood specimen (specimen) 03/12/2018 4:06 PM EDT 03/13/2018 7:24 AM EDT Narrative Resulting Agency Comment Spec In Lab Katie Almanza MD LAB SEND OUT ORDERAB LES [facility] [place] [address] * (ABNORMAL) Thyroid peroxidase antibody (03/12/2018 4:06 PM EDT) Thyroperoxidase Ab 89(H) <=34 IU/mL [facility] Blood specimen (specimen) 03/12/2018 4:06 PM EDT 03/13/2018 7:24 AM EDT Narrative Resulting Agency Comment Spec In Lab Katie Almanza MD IMMUNOLOGY ORDERABLE S [facility] [place] [address] * T3 Total (03/12/2018 4:06 PM EDT) T3 Total 101 75 - 170 ng/dL [facility] Blood specimen (specimen) 03/12/2018 4:06 PM EDT 03/12/2018 4:16 PM EDT Narrative Resulting Agency Comment Spec In Lab Katie Almanza MD CHEMISTRY ORDERABLES Performing Organization Address City/[facility]/ZIP Co de Phone Number [facility] [place] [address] * T4, free (03/12/2018 4:06 PM EDT) Free T4 1.22 0.93 - 1.70 ng/dL [facility] Blood specimen (specimen) 03/12/2018 4:06 PM EDT 03/12/2018 4:16 PM EDT Narrative Resulting Agency Comment Spec In Lab Katie Almanza MD CHEMISTRY ORDERABLES Performing Organization Address City/[facility]/ZIP Co de Phone Number [facility] [place] [address] * TSH (03/12/2018 4:06 PM EDT) Thyroid Stimulating Hormone 1.49 0.27 - 4.20 mlU/ML [facility] Blood specimen (specimen) 03/12/2018 4:06 PM EDT 03/12/2018 4:16 PM EDT Narrative Resulting Agency Comment Spec In Lab Katie Almanza MD CHEMISTRY ORDERABLES [facility] [place] [address] documented in this encounter Visit Diagnoses Diagnosis Thyroid nodule Nontoxic uninodular goiter documented in this encounter Care Teams Relief Charge Nurse Relationship Specialty Start Date End Date Pradeep Gallardo APRN PCP - General 07/19/10 08/04/24 documented as of this encounter
--- OUTSIDE RECORDS SUMMARY | 2024-09-12 00:58 | XMS_ITS | Encounter Summary ---
Author Organization [facility] [place] [address] Care Team Providers Care Rag Room Supervisor Name Role Phone Paulina Pradeep Swartz APRN Primary Care Provider [phone] Reason for Visit * Reason Onset Date Comments Teeth Problems 12/28/2022 Encounter Details Date Type Department Care Team (Late st Contact Info) Description 12/28/2022 Telephone [place] [phone] Ivelisse Ballesteros RN Teeth Problems Social History [...] 10:00 AM EDT Office [place] [address] Janice Villarreal MD [facility] [place] [address] documented as of this encounter Visit Diagnoses Not on filedocumented in this encounter Care Teams Rag Room Supervisor Relationship Specialty Start Date End Date Pradepe Gallardo APRN PCP - General 07/19/10 08/04/24 documented as of this encounter
--- OUTSIDE RECORDS SUMMARY | 2024-09-12 00:58 | XMS_ITS | Encounter Summary ---
Author Organization [facility] [place] [address] Care Team Providers Care Civil Defense Director Name Role Phone Paulina Pradeep Swartz APRN Primary Care Provider [phone] Reason for Visit * Reason Onset Date Comments Medication Refill 10/16/2022 Encounter Details Date Type Department Care Team (Late st Contact Info) Description 10/16/2022 Refill [place] [phone] Janice Villarreal MD [facility] [place] [address] Ulcerative pancolitis with complication Social History Tobacco [...] 10:00 AM EDT Office Visit [place] [phone] Janice Villarreal MD [facility] [place] [address] documented as of this encounter Visit Diagnoses Diagnosis Ulcerative pancolitis with complication documented in this encounter Care Teams Civil Defense Director Relationship Specialty Start Date End Date Pradeep Gallardo APRN PCP - General 07/19/10 08/04/24 documented as of this encounter
--- OUTSIDE RECORDS SUMMARY | 2024-09-12 00:58 | XMS_ITS | Encounter Summary ---
[place] [address] Care Team Providers Care Regional Medical Director Name Role Phone Paulina Pradeep Sheridan SPIVEY Primary Care Provider Encounter Details Date Type Department Care Team (Late st Contact Info) Description 05/16/2023 Telephone [place] [phone] Jeanette Franco RN Social History Tobacco Use [...] - 05/16/2023 8:29 AM EDT [facility] level was unable to be processed by [facility] and sample was rejected.Per lab they talked to Elsa about this. Will let Dr. Villarreal know and refax level to [facility] for when she would be due for a trough again. documented in this encounter Plan of Treatment Upcoming Encounters Date Type Department Care Team (Late st Contact Info) Description 01/28/2025 10:00 AM EDT Office [place] [address] Janice Villarreal MD [facility] [place] [address] documented as of this encounter Visit Diagnoses Not on filedocumented in this encounter Care Teams Regional Medical Director Relationship Specialty Start Date End Date Pradeep Gallardo APRN PCP - General 07/19/10 08/04/24 documented as of this encounter
--- OUTSIDE RECORDS SUMMARY | 2024-09-12 00:58 | XMS_ITS | Encounter Summary ---
[facility] [place] [address] Care Team Providers Care Tire Tester Name Role Phone Pradeep Gallardo APRN Primary Care Provider Encounter Details Date Type Department Care Team (Late st Contact Info) Description 01/04/2023 11:00 AM EDT Office [place] [address] Bijan Villarreal MD [facility] [place] [address] Ulcerative pancolitis without complication Social History Tobacco [...] from the original note were not included. [facility] Division of Gastroenterology and Hepatology History of Present Illness: Elsa Lujan??62F w/ PMH of??extensive colitis??c/b hospitalization 07/2022 following up in GI clinic. Interval Events: -Just came back from [place] to see son. Had a lot of fun. Plans to go to [place] this fall, otherwise mostly around this summer. Will be receiving an award from her former work place in January, but decided to go to [facility] to learn about [email or web address] so will have friend receive for her. [...] improvements GI History: Patient transferred care from [place] (history below). Well-controlled ulcerative colitis until April [...] worried about life long medication. I did recreational counselor that I would recommend continuing this [...] Villarreal MD Fellow in Gastroenterology [place] [address] P: [phone] F: [phone] CC Aria Thompson MD [address] [place] [id number] * Hermila East MD - 01/04/2023 11:00 AM EDT ATTENDING ATTESTATION: I have discussed the patient with the GI fellow, Dr. Villarreal and I agree with the fellow's findings, assessment, and plan as written. Hermila East MD Gastroenterology attending Pager [phone] documented in this encounter Miscellaneous Notes * Addendum Note - Bijan Villarreal - 01/04/2023 11:00 AM EDTAddended by: BIJAN VILLARREAL on: 01/04/2023 12:26 PM Modules accepted: Orders documented in this encounter Plan of Treatment Upcoming Encounters Date Type Department Care Team (Late st Contact Info) Description 01/28/2025 10:00 AM EDT Office [place] [address] Bijan Villarreal MD [facility] [place] [address] Scheduled Orders Name Type Priority Associated Diagnoses [...] 11:45 AM EDT) Neutrophil % 30.4 % [facility] Neutrophil Absolute 1.24(L) 1.70 - 6.10 x10(3)/mc L [facility] Lymph % 53.7 % [facility] Lymphocytes Abs 2.2 0.9 - 3.2 x10(3)/mc L [facility] Monocyte % 11.5 % [facility] Monocyte Abs 0.5 0.3 - 0.9 x10(3)/mc L [facility] Eos % 2.9 % [facility] Eosinophils Abs 0.1 0.0 - 0.4 x10(3)/mc L [facility] Basophil % 1.5 % [facility] Baso Absolute 0.1 0.0 - 0.1 x10(3)/mc L [facility] Immature Gran % 0.00 % [facility] Comment: Immature granulocytes(IG's)percentage and absolute count will include metamyelocytes, myelocytes, and promyelocytes. Blood smears from CBCs yielding IG's will be scanned manually for concordance. If this scan disagrees with the automated IG or if promyelocytes are noted, a manual differential will be performed. Immature Gran Absolute 0.00 0.00 - 0.04 x10(3)/mc L [facility] Blood 01/04/2023 11:4 5 AM EDT 01/04/2023 12:07 PM EDT Narrative Resulting Agency Comment Spec In Lab Bijan Villarreal MD HEMATOLOGY ORDERABLE S [facility] [place] [address] * (ABNORMAL) Hemogram (01/04/2023 11:45 AM EDT) White Blood Cell 4.1 4.0 - 9.5 x10(3)/mc L [facility] Red Blood Cell 3.96(L) 4.00 - 5.21 x10(6)/mc L [facility] Hemoglobin 10.3(L) 11.7 - 15.5 g/dL [facility] Hematocrit 31.0(L) 35.7 - 45.8 % [facility] Mean Cell Volume 78.3(L) 82.6 - 94.4 fL [facility] Mean Cell Hemoglobin 26.0(L) 27.1 - 32.0 pg [facility] Mean Cell Hemoglobin Concentration 33.2 31.7 - 35.0 g/dL [facility] Platelet 389(H) 145 - 357 x10(3)/mc L [facility] RDW Standard Deviation 55.2(H) 37.0 - 46.0 fL [facility] RDW coefficient of variation 19.2(H) 11.5 - 14.1 % [facility] Mean Platelet Volume 9.3 7.6 - 12.9 fL [facility] NRBC% auto 0.0 % [facility] NRBC Absolute 0.000 0.000 - 0.000 x10(3)/mc L [facility] Blood 01/04/2023 11:4 5 AM EDT 01/04/2023 12:07 PM EDT Narrative Resulting Agency Comment Spec In Lab Bijan Villarreal MD HEMATOLOGY ORDERABLE S [facility] [place] [address] * Folate, serum (01/04/2023 11:45 AM EDT) Folate >20.0 4.8 - 24.2 ng/mL [facility] Blood 01/04/2023 11:4 5 AM EDT 01/04/2023 12:07 PM EDT Narrative Resulting Agency Comment Spec In Lab Hermila East MD CHEMISTRY ORDERAB LES Performing Organization Address City/[facility]/ZIP Co de Phone Number [facility] [place] [address] * (ABNORMAL) Vitamin B12 (01/04/2023 11:45 AM EDT) Vitamin B12 >2,000(H) 232 - 1,245 pg/mL [facility] Blood 01/04/2023 11:4 5 AM EDT 01/04/2023 12:07 PM EDT Narrative Resulting Agency Comment Spec In Lab Hermila East MD CHEMISTRY ORDERAB LES Performing Organization Address City/[facility] Co de Phone Number [facility] [place] [address] * Vitamin D, 25-Hydroxy (01/04/2023 11:45 AM EDT) Vitamin D Total 25 OH 65 21 - 100 ng/mL [facility] Vit D Interp Sufficient [facility] Blood 01/04/2023 11:4 5 AM EDT 01/04/2023 12:07 PM EDT Narrative Resulting Agency Comment Spec In Lab Hermila East MD CHEMISTRY ORDERAB LES Performing Organization Address City/[facility] Co de Phone Number [facility] [place] [address] * CRP, acute inflammation (01/04/2023 11:45 AM EDT) C-Reactive Protein <3.0 <=4.9 mg/L [facility] Blood 01/04/2023 11:4 5 AM EDT 01/04/2023 12:07 PM EDT Narrative Resulting Agency Comment Spec In Lab Hermila East MD CHEMISTRY ORDERAB LES [facility] [place] [address] * (ABNORMAL) Basic Metabolic Panel (non-fasting) (01/04/2023 11:45 AM EDT) Glucose 95 65 - 199 mg/dL [facility] Comment:Diabetes: >=200 mg/d L plus symptoms Blood Urea Nitrogen 13 8 - 18 mg/dL [facility] Creatinine 0.61(L) 0.70 - 1.20 mg/dL [facility] Sodium 130(L) 135 - 145 mmol/L [facility] Potassium 4.3 3.5 - 5.0 mmol/L [facility] Comment: Please note: ??Patients with WBC >100,000 may have falsely elevated Potassium levels. ??For accurate Potassium quantification in these patients send serum separator tube (gold top) for subsequent determinations. ??Contact the Clinical Chemistry Laboratory if there are any questions. Chloride 96(L) 98 - 107 mmol/L [facility] Carbon Dioxide 27 22 - 31 mmol/L [facility] Anion Gap 7 5 - 15 mmol/L [facility] Calcium 9.0 8.5 - 10.5 mg/dL [facility] Est Glomerular Filtration Rate 100 >=60 mL/min/1. 73 m?? [facility] Comment: This patient's estimated GFR was [...] MD CHEMISTRY ORDERAB LES Performing Organization Address City/[facility]/ZIP Co de Phone Number [facility] [place] [address] * Varicella zoster Antibody, IgG (01/04/2023 11:45 AM EDT) Varicella Zoster Antibody IgG Positive Positive [facility] Comment: A positive result for this assay is considered to be an indicator of positive immune status. Blood 01/04/2023 11:4 5 AM EDT 01/04/2023 12:53 PM EDT Narrative Resulting Agency Comment Spec In Lab Hermila East MD IMMUNOLOGY ORDERA BLES Performing Organization Address [facility] Co de Phone Number [facility] [place] [address] documented in this encounter Visit Diagnoses Diagnosis Ulcerative pancolitis without complication documented in this encounter Care Teams Tire Tester Relationship Specialty Start Date End Date Pradeep Gallardo, LEARNING SERVICES COORDINATOR PCP - General 07/19/10 08/04/24 documented as of this encounter
--- OUTSIDE RECORDS SUMMARY | 2024-09-12 00:58 | XMS_ITS | Encounter Summary ---
[place] [address] Care Team Providers Care Laborer Starch Factory Name Role Phone Paulina Pradeep Serina SPIVEY Primary Care Provider [phone] Encounter Details Date Type Department Care Team (Late st Contact Info) Description 03/16/2023 [place] [address] Jenise Mooney Social History Tobacco [...] 10:00 AM EDT [place] [address] Janice Villarreal MD [facility] [place] [address] documented as of this encounter Visit Diagnoses Not on filedocumented in this encounter Care Teams Laborer Starch Factory Relationship Specialty Start Date End Date Pradeep Gallardo APRN PCP - General 07/19/10 08/04/24 documented as of this encounter
--- OUTSIDE RECORDS SUMMARY | 2024-09-12 00:58 | XMS_ITS | Encounter Summary ---
Author Organization [facility] [place] [address] Care Team Providers Care Offal Baler Name Role Phone Pradeep Gallardo APRN Primary Care Provider [phone] Encounter Details Date Type Department Care Team (Late st Contact Info) Description 06/13/2023 11:30 AM EDT Office [place] [id number] Janice Villarreal MD [facility] [place] [address] Ulcerative pancolitis with complication (Primary Dx); Urinary [...] from the original note were not included. [facility] Division of Gastroenterology and Hepatology History of [...] NSAIDs GI History: Patient transferred care from [place] (history below). Well-controlled ulcerative colitis until April [...] still not scheduled. [facility], not yet done [...] (CTs): 45 minutes spent in chart review, [id number] time and coordination of care with the patient today. Follow up 6 months Janice Villarreal MD Gastroenterology and Hepatology 06/13/2023 11:38 AM Pager # [phone] documented in this encounter Plan of Treatment Upcoming Encounters Date Type Department Care Team (Late st Contact Info) Description 01/28/2025 10:00 AM EDT Office [place] [address] Janice Villarreal MD [facility] [place] [address] documented as of this encounter Results * Vitamin D, 25-Hydroxy (06/13/2023 12:11 PM EDT) Vitamin D Total 25 OH 72 21 - 100 ng/mL [facility] Vit D Interp Sufficient [facility] Blood 06/13/2023 12:1 1 PM EDT 06/13/2023 12:19 PM EDT Narrative Resulting Agency Comment Spec In Lab Janice Villarreal MD CHEMISTRY ORDERABLES [facility] [place] [address] * CRP, acute inflammation (06/13/2023 12:11 PM EDT) C-Reactive Protein 3.4 <=4.9 mg/L [facility] Blood 06/13/2023 12:1 1 PM EDT 06/13/2023 12:19 PM EDT Narrative Resulting Agency Comment Spec In Lab Janice Villarreal MD CHEMISTRY ORDERABLES [facility] [place] [address] documented in this encounter Visit Diagnoses Diagnosis Ulcerative pancolitis with complication- Primary Urinary frequency documented in this encounter Care Teams Offal Baler Relationship Specialty Start Date End Date Pradeep Gallardo APRN PCP - General 07/19/10 08/04/24 documented as of this encounter
--- OUTSIDE RECORDS SUMMARY | 2024-09-12 00:58 | XMS_ITS | Encounter Summary ---
[place] [address] Care Team Providers Care Meter Readers Supervisor Name Role Phone Pradeep Gallardo APRN Primary Care Provider [phone] Reason for Visit * Reason Onset Date Comments Other 04/19/2023 Patient Navigati on Encounter Details Date Type Department Care Team (Late st Contact Info) Description 04/19/2023 Telephone [place] [phone] Mandi Manzanares Other (Patient Navigation/) Social History [...] 05/01/23. Let the patient know that this global technical writer will be faxing the required documentation to the [place] [facility] office, as requested, but that there [...] 10:00 AM EDT Office [place] [address] Janice Villarreal MD [facility] [place] [address] documented as of this encounter Visit Diagnoses Not on filedocumented in this encounter Care Teams Meter Readers Supervisor Relationship Specialty Start Date End Date Pradeep Gallardo APRN PCP - General 07/19/10 08/04/24 documented as of this encounter
[2024-09-12] MEDS: inFLIXimab 300 MG in Normal Saline 250 ML 125 MG IVPB (09:35)
[2024-09-12] MEDS: Normal Saline Flush 10 ML SYR IVP (09:35)
[2024-09-12] MEDS: Hydrocortisone SOD SUC. 100 MG VIAL IVP (09:54)
[2024-09-12 10:00] VITALS: BP 124/78; PULSE 66; RESP 17; TEMP 36.4; O2SAT 94
[2024-09-12 10:15] VITALS: BP 128/83; PULSE 65; RESP 18; TEMP 36.5; O2SAT 96
[2024-09-12 10:30] VITALS: BP 128/84; PULSE 64; RESP 18; TEMP 36.4; O2SAT 97
[2024-09-12 10:45] VITALS: BP 130/77; PULSE 64; RESP 18; TEMP 36.4; O2SAT 98
[2024-09-12 11:15] VITALS: BP 147/84; PULSE 57; RESP 18; TEMP 36.4; O2SAT 94
[2024-09-12 11:45] VITALS: BP 131/78; PULSE 56; RESP 18; TEMP 36.4; O2SAT 100
== END 2024-09-26 23:59 | disposition home or self-care (01) ==
LOC: INF 00:50
PROVIDERS: PCP Family Medicine; Visit Provider Family Medicine
DX: K51.00 Ulcerative (chronic) pancolitis without complications
CPT/HCPCS: 96365; 96366; 96374; 96375; J1720; J1745

== ENCOUNTER 2024-11-13 01:01 | Outpatient (CLI) | payer MEDICARE, OTHER, SELFPAY ==
--- NOTE | 2024-11-13 | DI.DEXA_ITS ---
Exam(s) XR DEXA BONE DENSITY W/WO JENELLE EXAM: XR DEXA BONE DENSITY W/WO JENELLE CLINICAL HISTORY: AGE RELATED OSTEOPOROSIS, M81.0, WITHOUT CURRENT PATHOLOGICAL FRACTURE TECHNIQUE: Hologic Horizon C densitometer analysis of left hip, lumbar spine and left forearm. Lat eral survey image of the thoracic and lumbar spine. COMPARISON: DX XR DEXA BONE DENSITY W/WO JENELLE from 09/17/2018 FINDINGS: Lateral view of the thoracic and lumbar spine shows no evidence of compression fractures. Bone mineral density measurements of the lumbar spine correspond to a total T-score of -2.6, in the osteoporotic range. This represents a 10.7 percent increase from 2019. Bone mineral density measurements of the left hip correspond to a total T-score of -1.8. This is un changed from prior. The femoral neck T-score is -2.7, in the osteoporotic range. Theleft forearm bone mineral density measurements correspond to a T-score of the distal 3rd of -3.5, in the osteoporotic range. This represents a 5.5 percent decrease from 2019.. IMPRESSION: Osteoporosis of the spine, hip and forearm.
== END 2024-11-13 01:21 ==
LOC: DI 01:01
PROVIDERS: PCP Family Medicine; Visit Provider Family Medicine
DX: M81.0 Age-related osteoporosis without current pathological fracture (principal)
CPT/HCPCS: 77080

== ENCOUNTER 2024-11-14 02:54 | Outpatient (RCR) | payer MEDICARE, OTHER, SELFPAY ==
[2024-11-14] VITALS (7 sets, daily range): BP systolic 120–146; BP diastolic 71–86; PULSE 51–64; RESP 16; TEMP 36.4–37.3; O2SAT 95–99
[2024-11-14 09:41] LABS: HCT 37.6 % (36.0-46.0); MCH 31.8 pg (27.0-33.0); MCHC 34.6 % (32.0-36.0); MCV 92 fL (80-95); MPV 8.9 fL (8.0-11.0); Platelet Count 289 10^3/uL (130-400); RBC 4.09 10^6/uL (3.93-5.22); RDW 13.5 % (11.7-14.6); RDW-SD 46.1 fL; WBC 4.05 10^3/uL (4.4-10.8)
[2024-11-14] MEDS: Acetaminophen 325 MG TAB 650 MG PO (09:43)
[2024-11-14] MEDS: Loratidine 10 MG TAB PO (09:45)
[2024-11-14] MEDS: Hydrocortisone SOD SUC. 100 MG VIAL IVP (09:48)
[2024-11-14] MEDS: inFLIXimab 300 MG in Normal Saline 250 ML 125 MG IVPB (10:05)
[2024-11-14 10:17] LABS: ALT 38 U/L (14-59); AST 22 U/L (15-37); Albumin 3.8 g/dL (3.4-5.0); Alkaline Phosphatase 96 U/L (46-116); Bilirubin, Direct 0.1 mg/dL (0.0-0.2); Bilirubin, Total 0.4 mg/dL (0.2-1.0); Total Protein 6.8 g/dL (6.4-8.2)
[2024-11-14 10:18] LABS: C-Reactive Protein < 0.50 mg/dL (<or=0.5)
[2024-11-14] MEDS: Normal Saline Flush 5 ML SYR IVP (10:59)
== END 2024-11-24 23:59 | disposition home or self-care (01) ==
LOC: INF 02:54
PROVIDERS: Internal Medicine Gastroenterology; PCP Family Medicine; Visit Provider Family Medicine
DX: K51.00 Ulcerative (chronic) pancolitis without complications (principal)
CPT/HCPCS: 36415; 80076; 85027; 96365; 96366; 96375; 86140; J1720; J1745

== ENCOUNTER 2025-01-16 01:21 | Outpatient (RCR) | payer MEDICARE, OTHER, SELFPAY ==
[2025-01-16] VITALS (7 sets, daily range): BP systolic 134–153; BP diastolic 77–90; PULSE 55–65; RESP 17–18; TEMP 36.5–36.9; O2SAT 97–99
[2025-01-16] MEDS: Acetaminophen 325 MG TAB 650 MG PO (09:22)
[2025-01-16] MEDS: Normal Saline Flush 10 ML SYR IVP ×2 (09:22→09:31)
[2025-01-16] MEDS: Loratidine 10 MG TAB PO (09:22)
[2025-01-16] MEDS: Hydrocortisone SOD SUC. 100 MG VIAL IVP (09:31)
[2025-01-16] MEDS: inFLIXimab 300 MG in Normal Saline 250 ML 125 MG IVPB (09:31)
== END 2025-01-24 23:59 | disposition home or self-care (01) ==
LOC: INF 01:21
PROVIDERS: PCP Family Medicine; Visit Provider Family Medicine
DX: K51.00 Ulcerative (chronic) pancolitis without complications (principal)
CPT/HCPCS: 96365; 96366; 96374; J1720; J1745

== ENCOUNTER 2025-01-22 02:36 | Outpatient (CLI) | payer MEDICARE, OTHER, SELFPAY ==
--- NOTE | 2025-01-22 08:00 | DI.US_ITS ---
Exam(s) US THYROID EXAM: US THYROID CLINICAL HISTORY: Assess for change,thyroid nodule,e04.1. TECHNIQUE: Ultrasound thyroid performed using standard protocol. COMPARISON: US US NEEDLE LOCAL OTHER WO RAD from 07/15/2024 FINDINGS: Again noted is the dominant solid nodule in the left lobe which underwent ultrasound-guided FNA on . That ultrasound did reveal some ???atypia of undetermined significance??? . LEFT THYROID LOBE: Measures 3 cm AP x 2.4 cm wide x 5.4 cm craniocaudal With respect to the previously biopsied solid nodule in the left lobe: It presently measures 2.9 x 2.7 x 2.3 cm, similar to previous. Composition: Solid-2 points Echogenicity: Solid components in the nodule are isoechoic-1 point Shape: Taller than wider in the transverse plane-3 points Margin: Indeterminate-0 points Echogenic Foci: There is a single macro calcification-1 point Total Points for this nodule: 7 ACR Ti-Rads Category: TR5 This TR 5 level nodule qualifies for biopsy as it measures greater than 1 cm ISTHMUS: Normal thickness. There are no nodules in the isthmus. RIGHT THYROID LOBE: Measures 1.3 cm AP x 1.6 wide x 4.6 cm craniocaudal Contains 3 small benign-appearing nodules, all measuring less than 1 cm. With respect to the largest of these nodules, it measures 0.8 x 0.7 x 0.8 cm Grading of this nodule is as follows: Composition: Solid-2 points Echogenicity: Isoechoic-2 points Shape: Wider than taller-0 points Margin: Smooth-0 points Echogenic Foci: Contains punctate echogenic foci-3 points Total points for this nodule: 7 ACR Ti-Rads Category: 5 This TR 5 level nodule measures less than 1 cm and therefore can be followed. LYMPH NODES: There is no significant adenopathy. IMPRESSION: 1. The previously biopsied dominant solid nodule which is in the left lobe is again noted to qualify for biopsy as it is a TR 5 level nodule which measures greater than 1 cm. 2. The largest solid nodule in the opposite-right lobe also is TR 5 level but measures less than 1 cm and therefore can be followed. 3. There is no significant lymphadenopathy. DATA REPOSITORY:
== END 2025-01-22 02:56 ==
LOC: DI 02:36
PROVIDERS: PCP Family Medicine; Visit Provider Otolaryngology
DX: E04.2 Nontoxic multinodular goiter (principal)
CPT/HCPCS: 76536

== ENCOUNTER 2025-03-20 00:34 | Outpatient (RCR) | payer MEDICARE, OTHER, SELFPAY ==
[2025-03-20] MEDS: Acetaminophen 325 MG TAB 650 MG PO (10:04)
[2025-03-20] MEDS: Loratidine 10 MG TAB PO (10:04)
[2025-03-20] MEDS: Hydrocortisone SOD SUC. 100 MG VIAL IV (10:04)
[2025-03-20 10:26] VITALS: BP 125/77; PULSE 61; RESP 16; TEMP 36.3; O2SAT 96
[2025-03-20] MEDS: inFLIXimab 300 MG in Normal Saline 250 ML 125 MG IVPB (10:26)
[2025-03-20 10:29] LABS: HCT 37.0 % (36.0-46.0); HGB 13.4 g/dL (11.2-15.7); MCH 32.6 pg (27.0-33.0); MCHC 36.2 % (32.0-36.0); MCV 90 fL (80-95); MPV 9.1 fL (8.0-11.0); Platelet Count 332 10^3/uL (130-400); RBC 4.11 10^6/uL (3.93-5.22); RDW 13.2 % (11.7-14.6); RDW-SD 43.5 fL; WBC 4.32 10^3/uL (4.4-10.8)
[2025-03-20 10:41] VITALS: BP 127/82; PULSE 56; RESP 16; TEMP 37; O2SAT 96
[2025-03-20 10:46] LABS: ALT 47 U/L (14-59); AST 26 U/L (15-37); Albumin 4.2 g/dL (3.4-5.0); Alkaline Phosphatase 102 U/L (46-116); Bilirubin, Direct 0.1 mg/dL (0.0-0.2); Bilirubin, Total 0.4 mg/dL (0.2-1.0); Total Protein 7.3 g/dL (6.4-8.2)
[2025-03-20 10:56] VITALS: BP 157/82; PULSE 58; RESP 16; TEMP 37.1; O2SAT 96
[2025-03-20 10:57] LABS: C-Reactive Protein < 0.50 mg/dL (<or=0.5)
[2025-03-20 11:11] VITALS: BP 150/83; PULSE 57; RESP 16; TEMP 37.1; O2SAT 99
[2025-03-20 11:41] VITALS: BP 146/84; PULSE 60; RESP 16; TEMP 37.1; O2SAT 99
[2025-03-20 12:11] VITALS: BP 153/89; PULSE 59; RESP 16; TEMP 37.1; O2SAT 98
[2025-03-24 16:13] LABS: Infliximab 6.9 mcg/mL (<=5.0)
== END 2025-03-26 23:59 | disposition home or self-care (01) ==
LOC: INF 00:34
PROVIDERS: Internal Medicine; Internal Medicine Gastroenterology; PCP Family Medicine; Visit Provider Family Medicine
DX: K51.00 Ulcerative (chronic) pancolitis without complications (principal)
CPT/HCPCS: 36415; 80076; 82397; 85027; 96365; 96366; 86140; J1720; J1745

== ENCOUNTER 2025-05-04 03:41 | Outpatient (RCR) | payer MEDICARE, OTHER, SELFPAY ==
[2025-05-04 10:14] VITALS: BP 157/86; PULSE 58; RESP 18; TEMP 36.3; O2SAT 100
[2025-05-04] MEDS: Loratidine 10 MG TAB PO (10:15)
[2025-05-04] MEDS: Acetaminophen 325 MG TAB 650 MG PO (10:15)
[2025-05-04] MEDS: Hydrocortisone SOD SUC. 100 MG VIAL IV (10:16)
[2025-05-04] MEDS: Normal Saline Flush 10 ML SYR IVP ×2 (10:16→11:38)
[2025-05-04] MEDS: inFLIXimab 300 MG in Normal Saline 250 ML 125 MG IVPB (11:37)
[2025-05-04 12:02] VITALS: BP 154/87; PULSE 63; RESP 18; TEMP 36.3; O2SAT 96
[2025-05-04 12:18] VITALS: BP 149/82; PULSE 61; RESP 18; TEMP 36; O2SAT 95
[2025-05-04 12:35] VITALS: BP 153/86; PULSE 64; RESP 18; TEMP 36.2; O2SAT 95
[2025-05-04 12:50] VITALS: BP 148/88; PULSE 77; RESP 19; TEMP 36.3; O2SAT 96
[2025-05-04 13:20] VITALS: BP 130/82; PULSE 78; RESP 18; TEMP 36.4; O2SAT 100
[2025-05-04 14:43] LABS: Abs Immature Grans 0.02 10^3/uL (0.0-0.06); HCT 35.3 % (36.0-46.0); HGB 12.5 g/dL (11.2-15.7); Immature Grans % 0.3 %; MCH 32.1 pg (27.0-33.0); MCHC 35.4 % (32.0-36.0); MCV 91 fL (80-95); MPV 9.4 fL (8.0-11.0); Platelet Count 331 10^3/uL (130-400); RBC 3.90 10^6/uL (3.93-5.22); RDW 13.2 % (11.7-14.6); RDW-SD 43.6 fL; WBC 6.56 10^3/uL (4.4-10.8)
[2025-05-04 14:47] LABS: ESR 4 mm/hr (0-30)
[2025-05-04 14:57] LABS: ALT 30 U/L (14-59); AST 21 U/L (15-37); Albumin 3.8 g/dL (3.4-5.0); Alkaline Phosphatase 92 U/L (46-116); Anion Gap 9.3 mmol/L (3-11); BUN 11 mg/dL (7-18); Bilirubin, Total 0.3 mg/dL (0.2-1.0); CO2 25.7 mmol/L (21.0-32.0); Calcium 8.7 mg/dL (8.5-10.1); Chloride 95 mmol/L (98-107); Estimated GFR 81.21 (mL/min/1.73m2); Glucose 186 mg/dL (74-106); Potassium 3.7 mmol/L (3.5-5.1); Sodium 130 mmol/L (136-145); Total Protein 6.8 g/dL (6.4-8.2)
[2025-05-04 14:58] LABS: C-Reactive Protein < 0.50 mg/dL (<or=0.5)
== END 2025-05-26 23:59 | disposition home or self-care (01) ==
LOC: INF 03:41
PROVIDERS: Student in an Organized Health Care Education/Training Program; PCP Family Medicine; Visit Provider Family Medicine
DX: K51.00 Ulcerative (chronic) pancolitis without complications (principal); I10 Essential (primary) hypertension
CPT/HCPCS: 80053; 85652; 96365; 96366; 96374; 96375; 85025; 86140; J1720; J1745

== ENCOUNTER 2025-05-04 10:51 | Outpatient (REF) | payer MEDICARE, OTHER, SELFPAY ==
[2025-05-05 22:55] LABS: Campylobacter PCR Negative (Negative); Shiga Toxin PCR Negative (Negative); Shigella/Enteroinvasive Ecoli Negative (Negative)
== END 2025-05-04 10:52 | disposition home or self-care (01) ==
LOC: LBN 10:51
PROVIDERS: PCP Family Medicine; Visit Provider Student in an Organized Health Care Education/Training Program
DX: K51.80 Other ulcerative colitis without complications (principal)
CPT/HCPCS: 87505; 83993

== ENCOUNTER 2025-06-26 13:11 | Outpatient (CLI) | payer MEDICARE, OTHER, SELFPAY ==
[2025-06-26 12:56] LABS: TSH 3.60 uIU/mL (0.36-3.74)
== END 2025-06-26 13:12 | disposition home or self-care (01) ==
LOC: LBO 13:17
PROVIDERS: PCP Family Medicine; Visit Provider Nurse Practitioner
DX: E04.1 Nontoxic single thyroid nodule (principal)
CPT/HCPCS: 36415; 84443

== ENCOUNTER 2025-07-03 00:52 | Outpatient (RCR) | payer MEDICARE, OTHER, SELFPAY ==
[2025-07-03 08:57] VITALS: BP 132/82; PULSE 55; RESP 18; TEMP 36.6; O2SAT 95
[2025-07-03] MEDS: Acetaminophen 325 MG TAB 650 MG PO (09:01)
[2025-07-03] MEDS: Hydrocortisone SOD SUC. 100 MG VIAL IV (09:01)
[2025-07-03] MEDS: Loratidine 10 MG TAB PO (09:01)
[2025-07-03] MEDS: Normal Saline Flush 10 ML SYR IVP (09:02)
[2025-07-03 09:30] LABS: HCT 37.8 % (36.0-46.0); HGB 13.2 g/dL (11.2-15.7); MCH 32.4 pg (27.0-33.0); MCHC 34.9 % (32.0-36.0); MCV 93 fL (80-95); MPV 9.3 fL (8.0-11.0); Platelet Count 306 10^3/uL (130-400); RBC 4.07 10^6/uL (3.93-5.22); RDW 13.3 % (11.7-14.6); RDW-SD 45.9 fL; WBC 3.72 10^3/uL (4.4-10.8)
[2025-07-03] MEDS: inFLIXimab 300 MG in Normal Saline 250 ML 125 MG IVPB (09:38)
[2025-07-03 09:53] LABS: ALT 40 U/L (14-59); AST 23 U/L (15-37); Albumin 3.7 g/dL (3.4-5.0); Alkaline Phosphatase 97 U/L (46-116); Bilirubin, Direct 0.1 mg/dL (0.0-0.2); Bilirubin, Total 0.4 mg/dL (0.2-1.0); C-Reactive Protein < 0.50 mg/dL (<or=0.5); Total Protein 6.9 g/dL (6.4-8.2)
[2025-07-03 10:10] VITALS: BP 131/77; PULSE 52; RESP 18; TEMP 36.6; O2SAT 97
[2025-07-03 10:25] VITALS: BP 137/79; PULSE 57; RESP 18; TEMP 36.5; O2SAT 96
[2025-07-03 10:40] VITALS: BP 137/86; PULSE 57; RESP 18; TEMP 36.4; O2SAT 95
[2025-07-03 10:59] VITALS: BP 146/83; PULSE 61; RESP 18; TEMP 36.5; O2SAT 96
[2025-07-03 11:28] VITALS: BP 137/74; PULSE 57; RESP 18; TEMP 36.4; O2SAT 96
[2025-07-07 15:38] LABS: Infliximab 9.3 mcg/mL (<=5.0)
== END 2025-07-26 23:59 | disposition home or self-care (01) ==
LOC: INF 00:52
PROVIDERS: Internal Medicine Gastroenterology; Student in an Organized Health Care Education/Training Program; PCP Family Medicine; Visit Provider Family Medicine
DX: K51.00 Ulcerative (chronic) pancolitis without complications (principal); K57.00 Diverticulitis of small intestine with perforation and abscess without bleeding
CPT/HCPCS: 80076; 82397; 85027; 96365; 96366; 96374; 86140; J1720; J1745